=== PATIENT | female | born 1940 | race Caucasian/White ===

== ENCOUNTER → 2017-02-15 | Outpatient (CLI) | payer OTHER, MEDICARE ==
[~2017-02-15] MED LIST: ACET-1311 PO; ADVIN25/60 INH; CARV25TA2 PO; CLC100 PO; CPR500 PO; CRG25 PO; DOCU100C31 PO; ENOX30IN4 SQ; ENOX40IN SQ; ERGO1CAP35 PO; FERR325T51 PO; FLUT1INH INH; FURO-85 PO; HYDR-3419 PO; IPRA1AER2 INH; NRV5 PO; OXGN; OXYC-106 PO; OXYC1TAB3 PO; POLY335019 PO; SENN-91 PO; SIMV40TA2 PO; TIOT1SPR INH; WARF2.5T8 PO; WARF2TAB8 PO
[2017-02-15 10:05] LABS: HEMATOCRIT 41.3 % (37-47); MEAN CORPUSCULAR HEMOGLOBIN 30.2 pg (25-34); MEAN CORPUSCULAR HGB CONC 32.4 g/dl (32-36); MEAN PLATELET VOLUME 10.5 fL (7.4-10.4); PLATELET COUNT 190 K/uL (130-400); RED BLOOD COUNT 4.44 M/uL (4.2-5.4); WHITE BLOOD COUNT 5.26 K/uL (4.8-10.8)
[2017-02-15 10:10] LABS: URINE APPEARANCE CLEAR (CLEAR); URINE BILIRUBIN NEG (NEG); URINE COLOR YELLOW; URINE EPITHELIAL CELL AUTO >30 /lpf (0-5); URINE NITRITE NEG (NEG); URINE PH 5.5 (4.5-7.5); URINE SPECIFIC GRAVITY 1.016 (1.000-1.030); UROBILINOGEN NEG (NEG)
[2017-02-15 10:12] LABS: MANUAL MICROSCOPIC REQUIRED? NO; REVIEW REQ? NO
[2017-02-15 10:31] LABS: BLOOD UREA NITROGEN 45 mg/dl (7-18); BUN/CREATININE RATIO 28.2 (10-20); CALCIUM 8.9 mg/dl (8.5-10.1); CARBON DIOXIDE 30 mmol/L (21-32); CHLORIDE 107 mmol/L (98-107); GLUCOSE 102 mg/dl (70-99); PHOSPHORUS 3.7 mg/dl (2.5-4.9); SODIUM 143 mmol/L (136-145); TOTAL IRON BINDING CAPACITY 276 mcg/dl (250-450)
[2017-02-15 10:44] LABS: URINE PROTIEN/CREAT RATIO 0.1 (0-0.2); URINE TOTAL PROTEIN 18.2 mg/dl (0-11.9)
[2017-02-15 10:45] LABS: FERRITIN 319.8 ng/ml (8.0-388.0); THYROID STIMULATING HORMONE 0.778 uIu/ml (0.300-4.500)
== END | disposition home or self-care (01) ==
LOC: C.LAB1850 07:11
PROVIDERS: ATTEND Internal Medicine Nephrology
DX: I10 Essential (primary) hypertension (principal); N25.81 Secondary hyperparathyroidism of renal origin; N18.4 Chronic kidney disease, stage 4 (severe); D64.9 Anemia, unspecified; R94.6 Abnormal results of thyroid function studies; I26.99 Other pulmonary embolism without acute cor pulmonale

== ENCOUNTER → 2017-02-23 | Outpatient (CLI) | payer OTHER, MEDICARE ==
[2017-02-23 13:29] LABS: URINE APPEARANCE CLEAR (CLEAR); URINE BILIRUBIN NEG (NEG); URINE COLOR DK YELLOW; URINE EPITHELIAL CELL AUTO >30 /lpf (0-5); URINE NITRITE NEG (NEG); URINE PH 7.5 (4.5-7.5); URINE SPECIFIC GRAVITY 1.016 (1.000-1.030); UROBILINOGEN NEG (NEG); ZZUR CULT IF INDIC CLEAN CATCH NO
[2017-02-23 13:31] LABS: MANUAL MICROSCOPIC REQUIRED? NO; REVIEW REQ? YES
== END | disposition home or self-care (01) ==
LOC: C.LAB1850 11:27
PROVIDERS: ATTEND Internal Medicine Nephrology
DX: I12.9 Hypertensive chronic kidney disease with stage 1 through stage 4 chronic kidney disease, or unspecified chronic kidney disease (principal); E55.9 Vitamin D deficiency, unspecified; N18.4 Chronic kidney disease, stage 4 (severe); D64.9 Anemia, unspecified; R31.29 Other microscopic hematuria

== ENCOUNTER → 2017-03-07 | Outpatient (CLI) | payer OTHER, MEDICARE ==
--- NOTE | 2017-03-07 11:54 | DIAGNOSTIC IMAGING REPORT ---
RENAL ULTRASOUND HISTORY: CHRONIC KIDNEY Disease, hematuria COMPARISON: Abdomen and pelvis CT 06/06/2016. FINDINGS: Right kidney: 8.9 cm. No hydronephrosis. Moderate cortical thinning. Increased cortical echogenicity. Left kidney: 9.1 cm. No hydronephrosis. Moderate cortical thinning. Increased cortical echogenicity. Bladder: Under distended and not well evaluated. IMPRESSION: 1. No hydronephrosis. 2. Moderate bilateral cortical thinning with increased cortical echogenicity suggestive of medical renal disease. Electronically signed by: Lopez Lee M.D. 03/07/2017 11:52 AM Dictated Date/Time: 03/07/2017 11:50 AM
== END | disposition home or self-care (01) ==
LOC: C.ULTRBC 11:19
PROVIDERS: ATTEND Internal Medicine Nephrology
DX: E55.9 Vitamin D deficiency, unspecified (principal); D64.9 Anemia, unspecified; I10 Essential (primary) hypertension; N18.4 Chronic kidney disease, stage 4 (severe); R31.29 Other microscopic hematuria

== ENCOUNTER 2017-05-11 07:07 | Inpatient (IN) | payer OTHER, MEDICARE ==
--- NOTE | 2017-04-27 09:57 | PAT Medication Instructions ---
Service Date Apr 27, 2017. Current Home Medication List Carvedilol (Coreg), 25 MG PO BID Ergocalciferol (Vitamin D Cap), 50,000 INTER.UNIT PO MONTHLY Ferrous Sulfate (Iron Supplement), 325 MG PO QAM Fluticasone Prop/Salmeterol (Advair Diskus 250/50 60 Dose), 1 PUFF INH BID Furosemide (Lasix), 20 MG PO QAM Home O2 Therapy (Oxygen), 2 LITERS NA HS Sennosides-Docusate Sodium (Senna S), 1 TAB PO DAILY PRN for PRN Simvastatin (Zocor), 40 MG PO HS Tiotropium [place] (Spiriva Respimat), 1 PUFF INH QAM Warfarin Sod (Jantoven), 2 MG PO QPM Medication Instructions For Your Scheduled Surgery - Continue as directed: Ergocalciferol (Vitamin D Cap), 50,000 INTER.UNIT PO MONTHLY Home O2 Therapy (Oxygen), 2 LITERS NA HS - Check with surgeon/prescribing physician for instructions: Warfarin Sod (Jantoven), 2 MG PO QPM - Hold the following medications the morning of surgery: Sennosides-Docusate Sodium (Senna S), 1 TAB PO DAILY PRN for PRN Furosemide (Lasix), 20 MG PO QAM Ferrous Sulfate (Iron Supplement), 325 MG PO QAM - Take the following medications the morning of surgery with a sip of water: Tiotropium [place] (Spiriva Respimat), 1 PUFF INH QAM Fluticasone Prop/Salmeterol (Advair Diskus 250/50 60 Dose), 1 PUFF INH BID Carvedilol (Coreg), 25 MG PO BID - Take the following medications as scheduled the night before surgery: Simvastatin (Zocor), 40 MG PO HS Sennosides-Docusate Sodium (Senna S), 1 TAB PO DAILY PRN for PRN (if needed) Fluticasone Prop/Salmeterol (Advair Diskus 250/50 60 Dose), 1 PUFF INH BID Carvedilol (Coreg), 25 MG PO BID If you have any questions please call us at [phone] or [phone] or [phone]
[2017-04-27 11:00] LABS: BASO % 0.5 %; BASO ABS # 0.03 K/uL (0-0.2); COMPLETE YES; EOS % 2.8 %; IG% 0.2 %; LYMPH % 23.3 %; LYMPH ABS # 1.48 K/uL (1.2-3.4); MEAN CELL VOLUME 93.5 fL (80-100); MEAN CORPUSCULAR HEMOGLOBIN 30.7 pg (25-34); MEAN CORPUSCULAR HGB CONC 32.8 g/dl (32-36); MEAN PLATELET VOLUME 10.2 fL (7.4-10.4); MONO % 8.8 %; NEUT % 64.4 %; PLATELET COUNT 227 K/uL (130-400); WHITE BLOOD COUNT 6.34 K/uL (4.8-10.8)
[2017-04-27 11:04] LABS: URINE APPEARANCE CLEAR (CLEAR); URINE BILIRUBIN NEG (NEG); URINE COLOR YELLOW; URINE NITRITE NEG (NEG); URINE SPECIFIC GRAVITY 1.013 (1.000-1.030); UROBILINOGEN NEG (NEG)
[2017-04-27 11:12] LABS: BUN/CREATININE RATIO 24.9 (10-20); CALCIUM 9.4 mg/dl (8.5-10.1); CREATININE 1.6 mg/dl (0.60-1.20); POTASSIUM 4.1 mmol/L (3.5-5.1)
[2017-04-27 11:14] LABS: MANUAL MICROSCOPIC REQUIRED? NO; REVIEW REQ? NO
[~2017-05-11] VITALS: Ht 162.6 cm; Wt 80.7 kg
[2017-05-11] VITALS (9 sets, daily range): BP systolic 115–179; BP diastolic 66–91; PULSE 59–73; TEMP 36.2–37; O2SAT 95–100; Ht 162.6 cm; Wt 80.7 kg
[~2017-05-11 07:07] MED LIST changes: -ACET-1311 PO; +ATROPINE SULFATE 0.1 MG/ML 5ML SYR IV PRN; +CIPROFLOXACIN / D5W 400 MG IV SCH; -CLC100 PO; -CPR500 PO; -CRG25 PO; -DOCU100C31 PO; -ENOX30IN4 SQ; -ENOX40IN SQ; +EpHEDrine SULFATE INJ 50 MG/ML AMP IV PRN; +FENTANYL CITRATE INJ 50 MCG/1 ML 2 ML VIAL IV PRN; -FLUT1INH INH; -HYDR-3419 PO; -IPRA1AER2 INH; -NRV5 PO; +ONDANSETRON INJ 2 MG/ML 2 ML VIAL IV PRN; -OXYC-106 PO; -OXYC1TAB3 PO; -POLY335019 PO; +SODIUM CHLORIDE 0.9% 1000ML 1,000 ML IV SCH; -WARF2.5T8 PO
[2017-05-11] MEDS ORDERED: MIDAZOLAM HCL 1 MG/ML 2ML VIAL ONE (08:26)
[2017-05-11] MEDS ORDERED: DEXAMETHASONE SOD INJ 4 MG/ML VIAL ONE (08:26)
[2017-05-11] MEDS ORDERED: LIDOCAINE HCL 2% 2 ML VIAL (20MG/ML) ONE (08:26)
[2017-05-11] MEDS ORDERED: PROPOFOL IV EMULSION 10 MG/ML 20 ML VIAL IV ONE (08:26)
[2017-05-11] MEDS ORDERED: FENTANYL CITRATE INJ 50 MCG/1 ML 2 ML VIAL ONE ×2 (08:26→12:04)
[2017-05-11] MEDS ORDERED: ONDANSETRON INJ 2 MG/ML 2 ML VIAL ONE (08:26)
[2017-05-11 08:35] LABS: INR 1.1 (0.9-1.1); PROTHROMBIN TIME (PATIENT) 11.8 SECONDS (9.0-12.0)
[2017-05-11] MEDS: CONRAY 30% 150ML BOTTLE ONE (09:43)
--- NOTE | 2017-05-11 09:48 | History & Physical Bridge Note ---
H&P Re-Evaluation Bridge Note: I have examined the patient, reviewed the History & Physical and in the interval since the performance of the History & Physical I have noted the following changes of clinical significance: No changes noted
[2017-05-11] MEDS ORDERED: EpHEDrine SULFATE 50MG/5ML SYR ONE (10:27)
[2017-05-11] MEDS ORDERED: METHYLENE BLUE 0.5% 10 ML VIAL ONE (10:27)
[2017-05-11] MEDS: FENTANYL CITRATE INJ 50 MCG/1 ML 2 ML VIAL IV PRN ×2 (12:06→12:13)
[2017-05-11] MEDS ORDERED: ONDANSETRON INJ 2 MG/ML 2 ML VIAL IV PRN (12:15)
[2017-05-11] MEDS ORDERED: ATROPINE SULFATE 0.1 MG/ML 5ML SYR IV PRN (12:15)
[2017-05-11] MEDS ORDERED: EpHEDrine SULFATE INJ 50 MG/ML AMP IV PRN (12:15)
--- NOTE | 2017-05-11 12:17 | [facility] Post Operative Brief Note ---
Immediate Operative Summary Operative Date May 11, 2017. Pre-Operative Diagnosis Malignant Neoplasm of Bladder Post-Operative Diagnosis Malignant Neoplasm of Bladder Procedure(s) Performed Cystoscopy, Large Transurethral Resection Bladder Tumor, Fulgeration of Large Surface Area, Bilateral Retrograde Pyelography, Right Ureteral Stent Placement Surgeon Dr. Riojas Rfid Engineer Surgeon(s) Dr. Dyer Estimated Blood Loss 50 cc Findings multiple 4 to 5 cm bladder tumors on r lateral wall . Diffuse cancer throughout bladder cancer around r u/o nl retrogrades bilaterally Specimens A: Bladder tumor posterior wall B: Bladder tumor bladder neck C: Posterior wall of bladder tumor D: Left lateral wall bladder Disposition Recovery Room / PACU
--- NOTE | 2017-05-11 12:22 | [facility] Operative Report ---
Operative Report Operative Date May 11, 2017. Pre-Operative Diagnosis Malignant Neoplasm of Bladder Post-Operative Diagnosis Malignant Neoplasm of Bladder Procedure(s) Performed Cystoscopy, Large Transurethral Resection Bladder Tumor, Fulgeration of Large Surface Area, Bilateral Retrograde Pyelography, Right Ureteral Stent Placement Surgeon Dr. Riojas Deburr Operator Surgeon(s) Dr. Dyer Estimated Blood Loss 50 cc Findings Diffuse cancer seen throughout the bladder Multiple 3-4 cm tumors on the right lateral wall extending all the way to the bladder neck Tumor surrounding the right ureteral orifice and right half of the trigone Normal retrogrades bilaterally Diffuse erythema throughout the bladder with bleeding from just touching the bladder wall or friable bladder Specimens A: Bladder tumor posterior wall B: Bladder tumor bladder neck C: Posterior wall of bladder tumor D: Left lateral wall bladder Drains 22 stoner Disposition Recovery Room / PACU Description of Procedure The patient was taken to the operating room where general anesthesia was administered she had Venodyne stockings placed previously and was given antibiotics previously. Her ProTime preoperatively was 11.8. She was first the dorsal position after being given general anesthesia and prepped and draped in usual sterile fashion 22 [place] scope was passed and the bladder was carefully examined with 30 and 70 lenses. I first did a retrograde and left side and this appeared normal the right ureteral orifice was covered with tumor so I ordered methylene blue and decided to come back to do the retrograde at a later time. Attention was focused first to the larger tumors in the right lateral wall and they were resected with the resectoscope with some deep biopsies being taken with one of the tumors. After the stone biopsied these at least 4 tumors were resected there were 3-4 cm. There is also diffuse cancer throughout the right lateral wall extending toward the posterior wall. Cancer seen in the posterior wall and this was biopsied as well as cancer on the left lateral wall. These were done with cup biopsy forceps the bladder was quite friable and bled very easily. Large surface area was fulgurated including approximately at least 20% of the bladder surface area.. Attention was then focused on the right ureteral orifice. With the assistance of Dr. Dyer I was able to locate the right ureteral orifice and it was cannulated with a 5 [place] open-ended catheter. A retrograde was performed which also appeared normal. A 6 [place] variable length stent was placed. Fulguration around the orifice was performed with the Bugbee as it was large amount of surface appearing papillary tumor surrounding the orifice. The bladder was reexamined and there was still some areas that needed to be coagulated. It and the procedure 20 [place] Stoner cath was placed the patient was transferred to the recovery room in stable condition. I attest to the content of the Intraoperative Record and any orders documented therein. Any exceptions are noted below.
[2017-05-11] MEDS ORDERED: MoRPHine SULFATE 4 MG/ML 1 ML CARP IV PRN (12:30)
[2017-05-11] MEDS ORDERED: DOCUSATE SODIUM/SENNA 50/8.6MG TAB PO PRN (12:30)
--- NOTE | 2017-05-11 12:39 | DIAGNOSTIC IMAGING REPORT ---
RETROGRADE INCLUDES KUB CLINICAL HISTORY: Right-sided stent placement COMPARISON STUDY: Renal ultrasound dated 03/07/2017 FINDINGS: 48 seconds of fluoroscopic time was utilized. A fluoroscopic spot images are provided for interpretation. The left ureter was catheterized in a retrograde fashion and contrast was instilled. No ureteral filling defects were visualized. There is no hydronephrosis. The right ureter was catheterized in a retrograde fashion and contrast was instilled. There is narrowing of the right ureteropelvic junction. There is mild dilatation the right renal pelvis. A right-sided nephroureteral stent was visualized. The distal aspect of the stent was not imaged. IMPRESSION: Narrowing of the right ureteropelvic junction. A right-sided nephroureteral stent was placed. Electronically signed by: Juan Newell M.D. 05/11/2017 12:38 PM Dictated Date/Time: 05/11/2017 12:36 PM
[2017-05-11] MEDS ORDERED: IV FLUIDS COMPLETED PRN (12:45)
--- NOTE | 2017-05-11 13:00 | Anesthesiology Progress Note ---
Anesthesia Post Op Note Date & Time May 11, 2017 at 13:00 Vital Signs Pain Intensity: 3 Vital Signs Past 12 Hours Date Time Temp Pulse Resp B/P (MAP) Pulse Ox O2 Delivery O2 Flow Rate FiO2 05/11/17 12:40 67 16 167/74 93 Room Air 05/11/17 12:30 65 16 148/75 94 Room Air 05/11/17 12:20 75 14 175/82 100 Oxymask 8 05/11/17 12:10 75 14 183/91 99 Oxymask 8 05/11/17 11:59 36.2 75 14 183/91 97 Oxymask 8 05/11/17 08:09 37.0 73 18 115/66 (82) 95 Room Air Notes Mental Status: alert / awake / arousable, participated in evaluation Pt Amnestic to Procedure: Yes Nausea / Vomiting: adequately controlled Pain: adequately controlled Airway Patency, RR, SpO2: stable & adequate BP & HR: stable & adequate Hydration State: stable & adequate Anesthetic Complications: no major complications apparent
[2017-05-11 15:03] LABS: BASO % 0.2 %; BASO ABS # 0.01 K/uL (0-0.2); COMPLETE YES; EOS % 3.6 %; HEMATOCRIT 37.8 % (37-47); IG% 0.2 %; LYMPH ABS # 1.09 K/uL (1.2-3.4); MEAN CORPUSCULAR HEMOGLOBIN 30.2 pg (25-34); MEAN CORPUSCULAR HGB CONC 33.6 g/dl (32-36); MEAN PLATELET VOLUME 9.8 fL (7.4-10.4); MONO % 7.4 %; NEUT % 62.6 %; PLATELET COUNT 164 K/uL (130-400)
--- NOTE | 2017-05-11 15:25 | Medical Consult ---
Consultation Date of Consultation: May 11, 2017. Attending Physician: Lenny Riojas M.D. Reason for Consultation: Medical management History of Present Illness Patient is a 76 y/o female, with PMHx of anemia, CKD stage IV, HTN, h/o takotsubo cardiomyopathy, CAD, dyslipidemia, COPD, nocturnal hypoxemia, h/o PE, vitamin D deficiency, and chronic low back pain, s/p cystoscopy, transurethral resection of large bladder tumor, fulgeration of large surface area, bilateral retrograde pyelography, right ureteral stent placement by Dr. Riojas on 05/11. Procedure went well, with no complications. Feeling well postop. Ate a little of lunch w/out N/V. Admits to lower abdominal pressure- RN to administer pain medications. Postop vitals/labs stable. Patient denies any fever, chills, sweats , lightheadedness, dizziness, vision changes, CP, palpitations, edema, SOB, wheezing, cough, nausea, vomiting, diarrhea, urinary symptoms, melena, numbness/ tingling, weakness, muscle/joint pain, anxiety/depression, active bleeding, or new skin discoloration/changes. Past Medical/Surgical History Medical Problems: Anemia CKD, stage IV HTN h/o takotsubo cardiomyopathy CAD w/ 80% distal RCA stenosis COPD Nocturnal hypoxemia Dyslipidemia Chronic low back pain h/o PE Vitamin D deficiency Surgical hx: hip replacement s/p AAA repair Family History Hypertension Social History Smoking Status: Former Smoker Drug Use: none Housing Status: lives alone Occupation Status: employed Allergies Coded Allergies: No Known Allergies (Verified , 05/11/17) Home Medications Reported Home Medications Medications Dose Route/Sig Max Daily Dose Days Date Category Dose Instructions Spiriva Respimat (Tiotropium [place]) 2.5 Mcg/Act Spr 1 Puff INH QAM 04/27/17 Reported Oxygen Gas 2 Liters NA HS 04/27/17 Reported AND PRN DURING THE DAY Jantoven (Warfarin Sodium) 2 Mg Tab 2 Mg PO QPM 04/27/17 Reported Advair Diskus 250/50 60 Dose (Fluticasone Prop/Salmeterol) 1 Ea Aerp 1 Puff INH BID 04/27/17 Reported Coreg (Carvedilol) 25 Mg Tab 25 Mg PO BID 04/27/17 Reported Senna S (Sennosides-Docusate Sodium) 1 Tab Tab 1 Tab PO DAILY PRN 12/21/15 Reported Iron Supplement (Ferrous Sulfate) 325 Mg Tab 325 Mg PO QAM 30 11/27/15 Reported Lasix (Furosemide) 20 Mg Tab 20 Mg PO QAM 01/23/14 Reported Vitamin D Cap (Ergocalciferol) 50,000 Interunit Cap 50,000 Inter.unit PO MONTHLY 07/31/13 Reported FIRST OF MONTH Zocor (Simvastatin) 40 Mg Tab 40 Mg PO HS 09/17/10 Reported Current Inpatient Medications Current Inpatient Medications Medications (Trade) Dose Ordered Sig/Cale Route Start Time Stop Time Status Last Admin Dose Admin Sodium Chloride 1,000 ml @ 15 mls/hr Q24H IV 05/11/17 06:00 05/12/17 05:59 Ciprofloxacin/ Dextrose 200 ml @ 100 mls/hr PREOP IV 05/11/17 06:00 05/11/17 18:00 05/11/17 09:55 100 MLS/HR Dextrose/Sodium Chloride 1,000 ml @ 75 mls/hr [id number] IV 05/11/17 12:22 06/10/17 12:21 Morphine Sulfate (MoRPHine SULFATE INJ) 3 mg Q1H PRN IV 05/11/17 12:30 05/25/17 12:29 Oxycodone/ Acetaminophen (Percocet 5-325mg Tab) 1 tab Q4H PRN PO 05/11/17 12:30 05/25/17 12:29 Carvedilol (Coreg Tab) 25 mg BID PO 05/11/17 21:00 06/10/17 20:59 Salmeterol Xinafoate/ Fluticasone (Advair Diskus 250/50 Inh) 1 puff BID INH 05/11/17 21:00 06/10/17 20:59 Furosemide (Lasix Tab) 20 mg QAM PO 05/12/17 09:00 06/11/17 08:59 Senna/Docusate Sodium (Senokot S Tab) 1 tab DAILY PRN PO 05/11/17 12:30 06/10/17 12:29 Simvastatin (Zocor Tab) 40 mg HS PO 05/11/17 21:00 06/10/17 20:59 Ferrous Sulfate (Feosol Tab) 325 mg QAM PO 05/12/17 09:00 06/11/17 08:59 Tiotropium [place] (Spiriva [place] Inhaler) 1 puff QAM INH 05/12/17 09:00 06/11/17 08:59 Ciprofloxacin/ Dextrose 400 mg/ Prmx 200 ml @ 100 mls/hr Q12 IV 05/11/17 21:00 05/21/17 20:59 Miscellaneous (Iv Fluids Completed) 1 ea PRN PRN N/A 05/11/17 12:45 05/11/18 12:44 Physical Exam Date Time Temp Pulse Resp B/P (MAP) Pulse Ox O2 Delivery O2 Flow Rate FiO2 05/11/17 14:29 64 16 171/82 (111) 100 Nasal Cannula 2.0 05/11/17 14:00 62 16 159/91 (113) 99 Nasal Cannula 2.0 05/11/17 13:38 36.4 62 15 179/84 (115) 99 Nasal Cannula 2.0 05/11/17 13:30 99 Nasal Cannula 2.0 05/11/17 13:00 64 16 179/82 98 Room Air 05/11/17 12:50 36.1 67 16 163/81 98 Room Air 05/11/17 12:40 67 16 167/74 93 Room Air 05/11/17 12:30 65 16 148/75 94 Room Air 05/11/17 12:20 75 14 175/82 100 Oxymask 8 05/11/17 12:10 75 14 183/91 99 Oxymask 8 05/11/17 11:59 36.2 75 14 183/91 97 Oxymask 8 05/11/17 08:09 37.0 73 18 115/66 (82) 95 Room Air General Appearance: no apparent distress, + pertinent finding (2L O2 NC ) Head: normocephalic, atraumatic Eyes: normal inspection, PERRL ENT: hearing grossly normal Neck: supple Respiratory/Chest: no respiratory distress, no accessory muscle use, + decreased breath sounds, + crackles (bilateral lung bases ) Cardiovascular: regular rate, rhythm Abdomen/GI: normal bowel sounds, non tender, soft Genitourinary - Female: + pertinent finding ([place]- draining quinn colored urine ) Back: normal inspection Extremities/Musculoskelatal: no calf tenderness, no pedal edema Neurologic/Psych: alert, normal mood/affect, oriented x 3 Skin: normal color, warm/dry, no rash Laboratory Results Last 24 Hours Test 05/11/17 08:07 05/11/17 14:29 Prothrombin Time 11.8 SECONDS Prothromb Time International Ratio 1.1 Activated Partial Thromboplast Time 26.8 SECONDS Partial Thromboplastin Ratio 1.0 White Blood Count 4.20 K/uL Red Blood Count 4.20 M/uL Hemoglobin 12.7 g/dL Hematocrit 37.8 % Mean Corpuscular Volume 90.0 fL Mean Corpuscular Hemoglobin 30.2 pg Mean Corpuscular Hemoglobin Concent 33.6 g/dl Platelet Count 164 K/uL Mean Platelet Volume 9.8 fL Neutrophils (%) (Auto) 62.6 % Lymphocytes (%) (Auto) 26.0 % Monocytes (%) (Auto) 7.4 % Eosinophils (%) (Auto) 3.6 % Basophils (%) (Auto) 0.2 % Neutrophils # (Auto) 2.63 K/uL Lymphocytes # (Auto) 1.09 K/uL Monocytes # (Auto) 0.31 K/uL Eosinophils # (Auto) 0.15 K/uL Basophils # (Auto) 0.01 K/uL RDW Standard Deviation 45.1 fL RDW Coefficient of Variation 13.6 % Immature Granulocyte % (Auto) 0.2 % Immature Granulocyte # (Auto) 0.01 K/uL Assessment & Plan Patient is a 76 y/o female, with PMHx of anemia, CKD stage IV, HTN, h/o takotsubo cardiomyopathy, CAD, dyslipidemia, COPD, nocturnal hypoxemia, h/o PE, vitamin D deficiency, and chronic low back pain, s/p cystoscopy, large transurethral resection bladder tumor, fulgeration of large surface area, bilateral retrograde pyelography, right ureteral stent placement by Dr. Riojas on 05/11. s/p cystoscopy, large transurethral resection bladder tumor, fulgeration of large surface area, bilateral retrograde pyelography, right ureteral stent placement by Dr. Riojas on 05/11: - Management as per primary team: -- Pain management- Percocet 5/325 mg q4 hrs PRN, and Morphine 3 mg q1 hrs PRN -- DVT Prophylaxis and resuming Warfarin once OK by primary team -- Diet- advancing as tolerated CKD, stage IV, baseline Cr 1.40/anemia- follows w/ Dr. Escoto: - Continue Ferrous Sulfate 325 mg QAM - Follow PRP and CBC- postop labs reviewed h/o takotsubo cardiomyopathy/CAD/HTN/dyslipidemia- follows w/ JENNIE LópezC: Continue Coreg 25 mg BID, Lasix 20 mg QAM, Simvastatin 40 mg HS Resident Physician Supervision Note: Pt seen/examined independently. I discussed the case with the PA and agree with the findings and plan as documented in the note. Any exceptions or clarifications are listed here: 76 y/o F post TURB - Hx Takotsubo syndrome, CKD IV, HTN, HPL, COPD Pt tolerated procedure and is recovering well - tolerating PO, pain controlled OE AAO x 3 S1,2 R CTAB Lower abdomen tender No CCE P: Can resume home meds inc Coreg and Zocor for HTN, HPL - incentive sadie and neb treatments IVF to avoid worsening renal failure Hold Lasix pending AM labs and volume assessment Med service to follow pending DC Documented By: Yakov Vazquez COPD/nocturnal hypoxemia: Continue Spiriva, Advair, and O2 2L NC HS and PRN Vitamin D deficiency: Vitamin D 50,000 IU monthly h/o PE: - Warfarin 2 mg daily held- follow PT/INR - Per patient/daughter, starting Lovenox injections on 05/16 and bridging w/ Coumadin DVT Prophylaxis: As per primary team Code Status: LEVEL I, FULL Dispo: Discharge as per primary team Thank you for this consultation. We will continue to follow throughout hospital stay.
[2017-05-11 15:29] LABS: BUN/CREATININE RATIO 26.7 (10-20); CALCIUM 8.8 mg/dl (8.5-10.1); CREATININE 1.6 mg/dl (0.60-1.20)
[2017-05-11] MEDS: D5W AND 1/2NSS 1,000 ML IV SCH (15:35)
[2017-05-11] MEDS ORDERED: NURSING VERBAL MED ORDER ONE (17:00)
[2017-05-11] MEDS: OXYBUTYNIN CHLORIDE 5 MG TAB PO SCH (18:52)
[2017-05-11] MEDS: FLUTICASONE/SALMETEROL 250/50 (ADVAIR) 14 PUFF/1 INHALER INH SCH (20:36)
[2017-05-11] MEDS: SIMVASTATIN 40 MG TAB PO SCH (20:37)
[2017-05-11] MEDS: CIPROFLOXACIN / D5W 400 MG in PREMIXED IN D5W 200 ML IV SCH (20:37)
[2017-05-11] MEDS: CARVEDILOL 25 MG TAB PO SCH (20:38)
[2017-05-11] MEDS: OXYCODONE/ACETAMINOPHEN 5-325 TAB PO PRN (20:44)
[2017-05-12 03:54] VITALS: BP 133/75; PULSE 68; TEMP 36.4; O2SAT 99
[2017-05-12] MEDS: D5W AND 1/2NSS 1,000 ML IV SCH ×2 (06:29→15:55)
[2017-05-12 07:48] LABS: MEAN CELL VOLUME 92.1 fL (80-100); MEAN CORPUSCULAR HEMOGLOBIN 30.2 pg (25-34); MEAN CORPUSCULAR HGB CONC 32.8 g/dl (32-36); MEAN PLATELET VOLUME 9.5 fL (7.4-10.4); PLATELET COUNT 142 K/uL (130-400); RED BLOOD COUNT 3.91 M/uL (4.2-5.4); WHITE BLOOD COUNT 4.77 K/uL (4.8-10.8)
[2017-05-12 07:54] LABS: INR 1.1 (0.9-1.1); PROTHROMBIN TIME (PATIENT) 11.6 SECONDS (9.0-12.0)
--- NOTE | 2017-05-12 07:54 | Anesthesiology Progress Note ---
Anesthesia Post Op Note Date & Time May 12, 2017 at 07:53 Vital Signs Vital Signs Past 12 Hours Date Time Temp Pulse Resp B/P (MAP) Pulse Ox O2 Delivery O2 Flow Rate FiO2 05/12/17 03:54 36.4 68 16 133/75 (94) 99 Nasal Cannula 2.0 05/12/17 00:58 Room Air 05/11/17 23:11 36.6 68 16 132/82 (99) 98 Nasal Cannula 2.0 05/11/17 20:00 Room Air Notes Mental Status: alert / awake / arousable, participated in evaluation Pt Amnestic to Procedure: Yes Nausea / Vomiting: adequately controlled Pain: adequately controlled Airway Patency, RR, SpO2: stable & adequate BP & HR: stable & adequate Hydration State: stable & adequate Anesthetic Complications: no major complications apparent
[2017-05-12 07:59] VITALS: BP 124/66; PULSE 70; TEMP 37; O2SAT 97
[2017-05-12 08:13] LABS: BUN/CREATININE RATIO 18.9 (10-20); CALCIUM 8.7 mg/dl (8.5-10.1); CREATININE 1.9 mg/dl (0.60-1.20); POTASSIUM 4.3 mmol/L (3.5-5.1)
[2017-05-12] MEDS ORDERED: HYDR-3419 PO (08:25)
--- NOTE | 2017-05-12 08:28 | Discharge Instructions ---
Discharge Instructions Date of Service May 12, 2017. Admission Reason for Admission: Bladder Tumor Discharge Discharge Diagnosis / Problem: Bladder tumor s/p biopsy, fulguration, R stent Discharge Goals Goal(s): Decrease discomfort, Improve disease control, Diagnostic testing, Therapeutic intervention Activity Recommendations Activity Limitations: per Instructions/Follow-up section (light activity but ambulate every hour or 2 to prevent blood clots) Lifting Limitations: no more than 25 pounds, gradually increase as tolerated ( x 5 days) Exercise/Sports Limitations: rest today, gradually increase as tolerated (x 5 days) May Resume Sexual Activity: when tolerated Shower/Bathe: no limitations Driving or Machine Use: resume 1 day after discharge . Current Hospital Diet Patient's current hospital diet: Regular Diet Discharge Diet Recommended Diet: Regular Diet (drink lots of fluids) Procedures Procedures Performed: Cystoscopy, Large Transurethral Resection Bladder Tumor, Fulgeration of Large Surface Area, Bilateral Retrograde Pyelography, Right Ureteral Stent Placement Pending Studies Studies pending at discharge: yes List of pending studies: Pathology report Medical Emergencies . Who to Call and When: Medical Emergencies: If at any time you feel your situation is an emergency, please call 911 immediately. . Non-Emergent Contact Non-Emergency issues call your: Urologist Call Non-Emergent contact if: temperature is above 101, your pain is not controlled, you have any medication questions . . "Provider Documentation" section prepared by Lenny Riojas. . VTE Core Measure Inpt VTE Proph given/why not?: SCD's
[2017-05-12] MEDS ORDERED: MAGNESIUM HYDROXIDE SUSP 30 ML UDC PO ONE (08:30)
--- NOTE | 2017-05-12 08:32 | Progress Note ---
Subjective Date of Service: May 12, 2017. Subjective Pt evaluation today including: conversation w/ patient, conversation w/ family , physical exam, chart review, lab review pt with need for narcotic to control pain Problem List Medical Problems: (1) Back pain Status: Acute (2) Dyspnea Status: Acute (3) Dyspnea on exertion Status: Acute (4) Lumbar compression fracture Status: Acute (5) Non-ST elevated myocardial infarction Status: Acute Objective Vital Signs Date Time Temp Pulse Resp B/P (MAP) Pulse Ox O2 Delivery O2 Flow Rate FiO2 05/12/17 08:00 Room Air 05/12/17 07:59 37.0 70 14 124/66 (85) 97 Room Air 05/12/17 03:54 36.4 68 16 133/75 (94) 99 Nasal Cannula 2.0 05/12/17 00:58 Room Air 05/11/17 23:11 36.6 68 16 132/82 (99) 98 Nasal Cannula 2.0 05/11/17 20:00 Room Air 05/11/17 19:12 36.4 66 18 141/66 (91) 99 Nasal Cannula 2.0 05/11/17 16:31 36.2 67 18 144/76 (98) 99 Nasal Cannula 2.0 05/11/17 15:27 36.2 59 18 160/83 (108) 100 Nasal Cannula 2.0 05/11/17 14:29 64 16 171/82 (111) 100 Nasal Cannula 2.0 05/11/17 14:00 62 16 159/91 (113) 99 Nasal Cannula 2.0 05/11/17 13:38 36.4 62 15 179/84 (115) 99 Nasal Cannula 2.0 05/11/17 13:30 99 Nasal Cannula 2.0 05/11/17 13:30 Room Air 05/11/17 13:00 64 16 179/82 98 Room Air 05/11/17 12:50 36.1 67 16 163/81 98 Room Air 05/11/17 12:40 67 16 167/74 93 Room Air 05/11/17 12:30 65 16 148/75 94 Room Air 05/11/17 12:20 75 14 175/82 100 Oxymask 8 05/11/17 12:10 75 14 183/91 99 Oxymask 8 05/11/17 11:59 36.2 75 14 183/91 97 Oxymask 8 Laboratory Results Last 24 Hours Test 05/11/17 14:29 05/12/17 07:32 White Blood Count 4.20 K/uL 4.77 K/uL Red Blood Count 4.20 M/uL 3.91 M/uL Hemoglobin 12.7 g/dL 11.8 g/dL Hematocrit 37.8 % 36.0 % Mean Corpuscular Volume 90.0 fL 92.1 fL Mean Corpuscular Hemoglobin 30.2 pg 30.2 pg Mean Corpuscular Hemoglobin Concent 33.6 g/dl 32.8 g/dl Platelet Count 164 K/uL 142 K/uL Mean Platelet Volume 9.8 fL 9.5 fL Neutrophils (%) (Auto) 62.6 % Lymphocytes (%) (Auto) 26.0 % Monocytes (%) (Auto) 7.4 % Eosinophils (%) (Auto) 3.6 % Basophils (%) (Auto) 0.2 % Neutrophils # (Auto) 2.63 K/uL Lymphocytes # (Auto) 1.09 K/uL Monocytes # (Auto) 0.31 K/uL Eosinophils # (Auto) 0.15 K/uL Basophils # (Auto) 0.01 K/uL RDW Standard Deviation 45.1 fL 47.5 fL RDW Coefficient of Variation 13.6 % 14.1 % Immature Granulocyte % (Auto) 0.2 % Immature Granulocyte # (Auto) 0.01 K/uL Sodium Level 140 mmol/L 139 mmol/L Potassium Level 4.0 mmol/L 4.3 mmol/L Chloride Level 103 mmol/L 103 mmol/L Carbon Dioxide Level 30 mmol/L 30 mmol/L Anion Gap 7.0 mmol/L 6.0 mmol/L Blood Urea Nitrogen 43 mg/dl 36 mg/dl Creatinine 1.60 mg/dl 1.90 mg/dl Est Creatinine Clear Calc Drug Dose 29.8 ml/min 25.1 ml/min Estimated GFR () 35.4 28.8 Estimated GFR (Non- 30.5 24.8 BUN/Creatinine Ratio 26.7 18.9 Random Glucose 82 mg/dl 95 mg/dl Calcium Level 8.8 mg/dl 8.7 mg/dl Prothrombin Time 11.6 SECONDS Prothromb Time International Ratio 1.1 Assessment and Plan pt with burgundy urine do not feel safe to d/c stoner and will leave here another day and start colace as she is taking significant narcotic cbc in am irrigate stoner prn Continued [facility] stay due to: inadequate oral pain control, other (significant hematuria)
[2017-05-12] MEDS: TIOTROPIUM BROMIDE 5 PUFF/90 MCG INH INH SCH (09:14)
[2017-05-12] MEDS: FLUTICASONE/SALMETEROL 250/50 (ADVAIR) 14 PUFF/1 INHALER INH SCH ×2 (09:14→21:11)
[2017-05-12] MEDS: OXYBUTYNIN CHLORIDE 5 MG TAB PO SCH ×2 (09:15→21:12)
[2017-05-12] MEDS ORDERED: NURSING VERBAL MED ORDER ONE (09:15)
[2017-05-12] MEDS: FUROSEMIDE 20 MG TAB PO SCH (09:15)
[2017-05-12] MEDS: FERROUS SULFATE 325 MG TAB PO SCH (09:15)
[2017-05-12] MEDS: OXYCODONE/ACETAMINOPHEN 5-325 TAB PO PRN ×2 (09:16→15:57)
[2017-05-12 09:56] VITALS: O2SAT 97
[2017-05-12] MEDS ORDERED: MAGNESIUM HYDROXIDE SUSP 30 ML UDC PO PRN (11:00)
[2017-05-12] MEDS: CIPROFLOXACIN / D5W 400 MG in PREMIXED IN D5W 200 ML IV SCH (11:04)
[2017-05-12] MEDS: DOCUSATE SODIUM 100 MG CAP PO SCH ×2 (11:05→21:12)
[2017-05-12] MEDS: CARVEDILOL 25 MG TAB PO SCH ×2 (11:06→21:14)
[2017-05-12 11:54] VITALS: BP 122/62; PULSE 68; TEMP 37.1; O2SAT 89
[2017-05-12 14:55] VITALS: BP 120/74; PULSE 77; TEMP 36.8; O2SAT 90
[2017-05-12] MEDS ORDERED: CIPROFLOXACIN CONSULT ACTIVE PRN ×2 (15:00)
--- NOTE | 2017-05-12 16:56 | Progress Note ---
Subjective Date of Service: May 12, 2017. Subjective pt doing well eating lunch still fairly dark urine, no pain issues at present Problem List Medical Problems: (1) Back pain Status: Acute (2) Dyspnea Status: Acute (3) Dyspnea on exertion Status: Acute (4) Lumbar compression fracture Status: Acute (5) Non-ST elevated myocardial infarction Status: Acute Review of Systems Constitutional: No fever, No chills Respiratory: No cough, No sputum, No shortness of breath Cardiac: No chest pain, No orthopnea, No edema Abdomen: No pain Female : + hematuria, No dysuria, No urinary frequency Objective Vital Signs Date Time Temp Pulse Resp B/P (MAP) Pulse Ox O2 Delivery O2 Flow Rate FiO2 05/12/17 14:55 36.8 77 18 120/74 (89) 90 Room Air 05/12/17 11:54 37.1 68 16 122/62 (82) 89 Room Air 05/12/17 09:56 97 05/12/17 08:00 Room Air 05/12/17 07:59 37.0 70 14 124/66 (85) 97 Room Air 05/12/17 03:54 36.4 68 16 133/75 (94) 99 Nasal Cannula 2.0 05/12/17 00:58 Room Air 05/11/17 23:11 36.6 68 16 132/82 (99) 98 Nasal Cannula 2.0 05/11/17 20:00 Room Air 05/11/17 19:12 36.4 66 18 141/66 (91) 99 Nasal Cannula 2.0 Physical Exam General Appearance: WD/WN, no apparent distress Neck: supple, thyroid normal Respiratory/Chest: chest non-tender, lungs clear, normal breath sounds Cardiovascular: regular rate, rhythm, + JVD Abdomen: normal bowel sounds, non tender, soft Laboratory Results Last 24 Hours Test 05/12/17 07:32 White Blood Count 4.77 K/uL Red Blood Count 3.91 M/uL Hemoglobin 11.8 g/dL Hematocrit 36.0 % Mean Corpuscular Volume 92.1 fL Mean Corpuscular Hemoglobin 30.2 pg Mean Corpuscular Hemoglobin Concent 32.8 g/dl RDW Standard Deviation 47.5 fL RDW Coefficient of Variation 14.1 % Platelet Count 142 K/uL Mean Platelet Volume 9.5 fL Prothrombin Time 11.6 SECONDS Prothromb Time International Ratio 1.1 Sodium Level 139 mmol/L Potassium Level 4.3 mmol/L Chloride Level 103 mmol/L Carbon Dioxide Level 30 mmol/L Anion Gap 6.0 mmol/L Blood Urea Nitrogen 36 mg/dl Creatinine 1.90 mg/dl Est Creatinine Clear Calc Drug Dose 25.1 ml/min Estimated GFR () 28.8 Estimated GFR (Non- 24.8 BUN/Creatinine Ratio 18.9 Random Glucose 95 mg/dl Calcium Level 8.7 mg/dl Assessment and Plan 76 y/o female s/p transurethral resection bladder tumor, fulgeration of large surface area, bilateral retrograde pyelography, right ureteral stent placement by Dr. Riojas on 05/11. doing well post , ckd 4 is stable h/o takotsubo cardiomyopathy/CAD/HTN/dyslipidemia- f: Continue Coreg 25 mg BID, Simvastatin 40 mg HS, lasix daily dvt prevention is mechanical given hematuria Continued [facility] stay due to: inadequate oral pain control, other (significant hematuria)
[2017-05-12] MEDS: SIMVASTATIN 40 MG TAB PO SCH (21:57)
[2017-05-12 23:37] VITALS: BP 160/83; PULSE 59; TEMP 36.6; O2SAT 90
[2017-05-13 03:16] VITALS: BP 152/79; PULSE 81
[2017-05-13] MEDS: D5W AND 1/2NSS 1,000 ML IV SCH ×2 (03:59→17:54)
[2017-05-13 07:04] VITALS: BP 125/75; PULSE 68; TEMP 36.8; O2SAT 96
[2017-05-13 07:11] LABS: HEMATOCRIT 35.5 % (37-47); MEAN CORPUSCULAR HEMOGLOBIN 28.5 pg (25-34); MEAN PLATELET VOLUME 10.3 fL (7.4-10.4); PLATELET COUNT 150 K/uL (130-400); RED BLOOD COUNT 3.86 M/uL (4.2-5.4); WHITE BLOOD COUNT 5.07 K/uL (4.8-10.8)
[2017-05-13 07:30] LABS: PROTHROMBIN TIME (PATIENT) 10.9 SECONDS (9.0-12.0)
[2017-05-13 07:44] LABS: BUN/CREATININE RATIO 18.2 (10-20); CALCIUM 8.5 mg/dl (8.5-10.1); POTASSIUM 4.4 mmol/L (3.5-5.1)
[2017-05-13] MEDS ORDERED: HydrALAZINE HCL 20 MG/ML VIAL IV PRN (08:00)
[2017-05-13] MEDS: CIPROFLOXACIN 500 MG TAB PO SCH (08:55)
[2017-05-13] MEDS: OXYBUTYNIN CHLORIDE 5 MG TAB PO SCH ×2 (08:56→21:03)
[2017-05-13] MEDS: FUROSEMIDE 20 MG TAB PO SCH (08:56)
[2017-05-13] MEDS: FLUTICASONE/SALMETEROL 250/50 (ADVAIR) 14 PUFF/1 INHALER INH SCH ×2 (09:03→21:03)
[2017-05-13] MEDS: TIOTROPIUM BROMIDE 5 PUFF/90 MCG INH INH SCH (09:04)
[2017-05-13] MEDS: FERROUS SULFATE 325 MG TAB PO SCH (09:52)
[2017-05-13] MEDS: CARVEDILOL 25 MG TAB PO SCH ×2 (09:52→21:04)
[2017-05-13] MEDS: DOCUSATE SODIUM 100 MG CAP PO SCH ×2 (09:53→21:03)
--- NOTE | 2017-05-13 10:04 | Progress Note ---
Subjective Date of Service: May 13, 2017. Subjective Pt evaluation today including: conversation w/ patient, physical exam, chart review, lab review, review of inpatient medication list Pain: Denies PO Intake: Sunitha reg diet Voiding: stoner catheter in place (hematuria, lightening) 76 yo female POD#2 s/p bladder biopsy and fulguration. Her hematuria continues, slowly improving. She notes irrigation for clot and catheter malfunction overnight, nursing notes reviewed, currently improved. Sunitha reg diet, + OOB. She notes she is pushing fluids, IVF running at 75 cc/ hr. Cr noted to be rising, currently 2.0. Past labs and hospitalizations reviewed - baseline renal insufficiency with occasional rises in her Cr noted. No other complaints, in good spirits. Hospitalist input reviewed and appreciated. Problem List Medical Problems: (1) Back pain Status: Acute (2) Dyspnea Status: Acute (3) Dyspnea on exertion Status: Acute (4) Lumbar compression fracture Status: Acute (5) Non-ST elevated myocardial infarction Status: Acute Review of Systems Constitutional: No fever, No chills Eyes: No worsening of vision ENT: No hearing loss Respiratory: No wheezing, No shortness of breath Cardiac: No chest pain Abdomen: No nausea, No vomiting Female : + see HPI, + hematuria Neurologic: No memory loss, No paralysis Psychiatric: No depression symptoms Skin: No new/changing skin lesions, No color change Objective Vital Signs Date Time Temp Pulse Resp B/P (MAP) Pulse Ox O2 Delivery O2 Flow Rate FiO2 05/13/17 07:45 Nasal Cannula 2.0 05/13/17 07:04 36.8 68 18 125/75 (92) 96 Nasal Cannula 2.0 05/13/17 03:16 81 152/79 (103) 05/12/17 23:37 36.6 59 20 160/83 (108) 90 Nasal Cannula 2.0 05/12/17 23:30 Nasal Cannula 2.0 05/12/17 16:40 Room Air 05/12/17 14:55 36.8 77 18 120/74 (89) 90 Room Air 05/12/17 11:54 37.1 68 16 122/62 (82) 89 Room Air Physical Exam General Appearance: WD/WN, no apparent distress ENT: hearing grossly normal Neck: supple, no adenopathy Respiratory/Chest: no respiratory distress, no accessory muscle use Cardiovascular: no JVD Abdomen: non tender, soft Neurologic/Psychiatric: alert, oriented x 3 Skin: normal color Laboratory Results Last 24 Hours Test 05/13/17 06:23 White Blood Count 5.07 K/uL Red Blood Count 3.86 M/uL Hemoglobin 11.0 g/dL Hematocrit 35.5 % Mean Corpuscular Volume 92.0 fL Mean Corpuscular Hemoglobin 28.5 pg Mean Corpuscular Hemoglobin Concent 31.0 g/dl RDW Standard Deviation 47.5 fL RDW Coefficient of Variation 14.0 % Platelet Count 150 K/uL Mean Platelet Volume 10.3 fL Prothrombin Time 10.9 SECONDS Prothromb Time International Ratio 1.0 Sodium Level 137 mmol/L Potassium Level 4.4 mmol/L Chloride Level 101 mmol/L Carbon Dioxide Level 32 mmol/L Anion Gap 4.0 mmol/L Blood Urea Nitrogen 36 mg/dl Creatinine 2.00 mg/dl Est Creatinine Clear Calc Drug Dose 23.8 ml/min Estimated GFR () 27.0 Estimated GFR (Non- 23.3 BUN/Creatinine Ratio 18.2 Random Glucose 126 mg/dl Calcium Level 8.5 mg/dl Assessment and Plan A/P 76 yo female POD#2 s/p bladder biopsy and fulguration. Findings noted with patient - improving but persistent hematuria and upwards trend of her Cr. Will keep until tomorrow to allow for stabilization of renal function and further improvement of hematuria. Ideally would be able to proceed with trial of void prior to DC home. Patient vocalizes understanding of the treatment plan. Continued [facility] stay due to: other (significant hematuria) Discharge planning: home
--- NOTE | 2017-05-13 12:21 | Progress Note ---
Subjective Date of Service: May 13, 2017. Subjective pt had issues last pm with stoner cath obsturction and removal with replacement now no issues and urine is lightening Problem List Medical Problems: (1) Back pain Status: Acute (2) Dyspnea Status: Acute (3) Dyspnea on exertion Status: Acute (4) Lumbar compression fracture Status: Acute (5) Non-ST elevated myocardial infarction Status: Acute Review of Systems Constitutional: No fever, No chills Respiratory: No cough, No sputum Cardiac: No chest pain, No orthopnea, No PND, No edema Abdomen: No pain, No nausea, No vomiting, No diarrhea Female : + hematuria, No dysuria Objective Vital Signs Date Time Temp Pulse Resp B/P (MAP) Pulse Ox O2 Delivery O2 Flow Rate FiO2 05/13/17 07:45 Nasal Cannula 2.0 05/13/17 07:04 36.8 68 18 125/75 (92) 96 Nasal Cannula 2.0 05/13/17 03:16 81 152/79 (103) 05/12/17 23:37 36.6 59 20 160/83 (108) 90 Nasal Cannula 2.0 05/12/17 23:30 Nasal Cannula 2.0 05/12/17 16:40 Room Air 05/12/17 14:55 36.8 77 18 120/74 (89) 90 Room Air Physical Exam General Appearance: WD/WN, + mild distress Neck: supple, no JVD Respiratory/Chest: chest non-tender, lungs clear Cardiovascular: regular rate, rhythm, no murmur Abdomen: normal bowel sounds, non tender, soft Laboratory Results Last 24 Hours Test 05/13/17 06:23 White Blood Count 5.07 K/uL Red Blood Count 3.86 M/uL Hemoglobin 11.0 g/dL Hematocrit 35.5 % Mean Corpuscular Volume 92.0 fL Mean Corpuscular Hemoglobin 28.5 pg Mean Corpuscular Hemoglobin Concent 31.0 g/dl RDW Standard Deviation 47.5 fL RDW Coefficient of Variation 14.0 % Platelet Count 150 K/uL Mean Platelet Volume 10.3 fL Prothrombin Time 10.9 SECONDS Prothromb Time International Ratio 1.0 Sodium Level 137 mmol/L Potassium Level 4.4 mmol/L Chloride Level 101 mmol/L Carbon Dioxide Level 32 mmol/L Anion Gap 4.0 mmol/L Blood Urea Nitrogen 36 mg/dl Creatinine 2.00 mg/dl Est Creatinine Clear Calc Drug Dose 23.8 ml/min Estimated GFR () 27.0 Estimated GFR (Non- 23.3 BUN/Creatinine Ratio 18.2 Random Glucose 126 mg/dl Calcium Level 8.5 mg/dl Assessment and Plan 76 y/o female s/p transurethral resection bladder tumor, fulgeration of large surface area, bilateral retrograde pyelography, right ureteral stent placement by Dr. Riojas on 05/11. bp slightly elevated but did have issues overnight, will add iv prn hydralazine and keep meds the same no changes , ckd 4 is stable stable takotsubo cardiomyopathy/CAD/HTN/dyslipidemia- Coreg 25 mg BID, Simvastatin 40 mg HS, lasix daily dvt prevention is mechanical given hematuria Continued [facility] stay due to: other (significant hematuria) Discharge planning: home
[2017-05-13 14:57] VITALS: BP 112/62; PULSE 81; TEMP 36.6; O2SAT 91
[2017-05-13] MEDS: SIMVASTATIN 40 MG TAB PO SCH (21:03)
[2017-05-13 23:01] VITALS: BP 134/78; PULSE 75; TEMP 36.8; O2SAT 90
[2017-05-14] MEDS: D5W AND 1/2NSS 1,000 ML IV SCH (05:41)
[2017-05-14 07:22] LABS: HEMATOCRIT 31.7 % (37-47); MEAN CELL VOLUME 91.9 fL (80-100); MEAN CORPUSCULAR HEMOGLOBIN 29.3 pg (25-34); MEAN CORPUSCULAR HGB CONC 31.9 g/dl (32-36); MEAN PLATELET VOLUME 9.4 fL (7.4-10.4); PLATELET COUNT 131 K/uL (130-400); RED BLOOD COUNT 3.45 M/uL (4.2-5.4); WHITE BLOOD COUNT 5.04 K/uL (4.8-10.8)
[2017-05-14 07:23] VITALS: BP 121/73; PULSE 87; TEMP 36.7; O2SAT 92
[2017-05-14 07:32] LABS: PROTHROMBIN TIME (PATIENT) 10.5 SECONDS (9.0-12.0)
[2017-05-14 08:00] VITALS: O2SAT 92
[2017-05-14 08:00] LABS: BUN/CREATININE RATIO 21.4 (10-20); CALCIUM 8.4 mg/dl (8.5-10.1); CREATININE 1.7 mg/dl (0.60-1.20)
[2017-05-14] MEDS: FLUTICASONE/SALMETEROL 250/50 (ADVAIR) 14 PUFF/1 INHALER INH SCH (08:07)
[2017-05-14] MEDS: TIOTROPIUM BROMIDE 5 PUFF/90 MCG INH INH SCH (08:08)
[2017-05-14] MEDS: CARVEDILOL 25 MG TAB PO SCH (08:09)
[2017-05-14] MEDS: FUROSEMIDE 20 MG TAB PO SCH (08:09)
[2017-05-14] MEDS: CIPROFLOXACIN 500 MG TAB PO SCH (08:09)
[2017-05-14] MEDS: OXYBUTYNIN CHLORIDE 5 MG TAB PO SCH (08:10)
[2017-05-14] MEDS: DOCUSATE SODIUM 100 MG CAP PO SCH (08:10)
[2017-05-14] MEDS ORDERED: BISACODYL 10 MG SUPP PR PRN (08:45)
[2017-05-14] MEDS: FERROUS SULFATE 325 MG TAB PO SCH (08:59)
[2017-05-14] MEDS ORDERED: BISACODYL 10 MG SUPP PR STA (10:49)
--- NOTE | 2017-05-14 10:54 | Progress Note ---
Subjective Date of Service: May 14, 2017. Subjective Pt evaluation today including: conversation w/ patient, physical exam, chart review, lab review, review of inpatient medication list Pain: Denies PO Intake: Sunitha PO reg diet Voiding: stoner catheter in place (urine light pink) 76 yo female POD#3 s/p cysto, bladder biopsy, R stent. Her urine appearance continues to improve, light pink currently, Cr down this AM. She denies other specific complaints save constipation - has been taking PO stool softeners. Past notes and hospitalist input reviewed and appreciated. Problem List Medical Problems: (1) Back pain Status: Acute (2) Dyspnea Status: Acute (3) Dyspnea on exertion Status: Acute (4) Lumbar compression fracture Status: Acute (5) Non-ST elevated myocardial infarction Status: Acute Review of Systems Constitutional: No fever, No chills Eyes: No worsening of vision ENT: No sore throat Respiratory: No wheezing, No shortness of breath Cardiac: No chest pain Abdomen: + constipation, No nausea, No vomiting Female : + see HPI, + urinary frequency, + hematuria Neurologic: No memory loss, No paralysis Psychiatric: No depression symptoms, No anxiety Skin: No new/changing skin lesions, No color change Objective Vital Signs Date Time Temp Pulse Resp B/P (MAP) Pulse Ox O2 Delivery O2 Flow Rate FiO2 05/14/17 08:00 92 Room Air 05/14/17 07:23 36.7 87 16 121/73 (89) 92 Room Air 05/14/17 00:00 Nasal Cannula 2.0 05/13/17 23:01 36.8 75 18 134/78 (96) 90 Room Air 05/13/17 15:45 Room Air 05/13/17 14:57 36.6 81 18 112/62 (79) 91 Room Air Physical Exam General Appearance: WD/WN, no apparent distress ENT: hearing grossly normal Neck: supple, no adenopathy Respiratory/Chest: no respiratory distress, no accessory muscle use Cardiovascular: no JVD Abdomen: non tender, soft Extremities: non-tender Neurologic/Psychiatric: alert, oriented x 3 Skin: normal color Laboratory Results Last 24 Hours Test 05/14/17 07:06 White Blood Count 5.04 K/uL Red Blood Count 3.45 M/uL Hemoglobin 10.1 g/dL Hematocrit 31.7 % Mean Corpuscular Volume 91.9 fL Mean Corpuscular Hemoglobin 29.3 pg Mean Corpuscular Hemoglobin Concent 31.9 g/dl RDW Standard Deviation 47.5 fL RDW Coefficient of Variation 14.1 % Platelet Count 131 K/uL Mean Platelet Volume 9.4 fL Prothrombin Time 10.5 SECONDS Prothromb Time International Ratio 1.0 Sodium Level 140 mmol/L Potassium Level 4.0 mmol/L Chloride Level 106 mmol/L Carbon Dioxide Level 30 mmol/L Anion Gap 4.0 mmol/L Blood Urea Nitrogen 36 mg/dl Creatinine 1.70 mg/dl Est Creatinine Clear Calc Drug Dose 28.0 ml/min Estimated GFR () 32.9 Estimated GFR (Non- 28.4 BUN/Creatinine Ratio 21.4 Random Glucose 104 mg/dl Calcium Level 8.4 mg/dl Assessment and Plan A/P 76 yo female POD#3 s/p bladder biopsy and fulguration. Cr improved, appearance of urine improved - we are pleased with both. 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 As noted, her irritative symptoms and hematuria will likely continue with indwelling stent. Dulcolax supp x 1 today, continue stool softeners. Rx for short course of Cipro and Colace at home. Strategies for constipation at home, eg enema if no BM by tomorrow, reviewed. DC home today after void, outpatient appointments reviewed. Continued [facility] stay due to: other (significant hematuria) Discharge planning: home
[2017-05-14] MEDS ORDERED: CPR500 PO (10:56)
[2017-05-14] MEDS ORDERED: CLC100 PO (10:56)
--- NOTE | 2017-05-14 11:18 | Progress Note ---
Subjective Date of Service: May 14, 2017. Subjective this pt is doing well , discharged but urology Problem List Medical Problems: (1) Back pain Status: Acute (2) Dyspnea Status: Acute (3) Dyspnea on exertion Status: Acute (4) Lumbar compression fracture Status: Acute (5) Non-ST elevated myocardial infarction Status: Acute Review of Systems Constitutional: No fever, No chills, No weakness Respiratory: No cough, No sputum, No wheezing Cardiac: No chest pain, No orthopnea, No edema Abdomen: No pain, No nausea, No vomiting, No diarrhea Objective Vital Signs Date Time Temp Pulse Resp B/P (MAP) Pulse Ox O2 Delivery O2 Flow Rate FiO2 05/14/17 08:00 92 Room Air 05/14/17 07:23 36.7 87 16 121/73 (89) 92 Room Air 05/14/17 00:00 Nasal Cannula 2.0 05/13/17 23:01 36.8 75 18 134/78 (96) 90 Room Air 05/13/17 15:45 Room Air 05/13/17 14:57 36.6 81 18 112/62 (79) 91 Room Air Physical Exam General Appearance: WD/WN, + mild distress Neck: supple, no JVD Respiratory/Chest: chest non-tender, lungs clear, normal breath sounds Cardiovascular: regular rate, rhythm, no murmur Abdomen: normal bowel sounds, non tender, soft Laboratory Results Last 24 Hours Test 05/14/17 07:06 White Blood Count 5.04 K/uL Red Blood Count 3.45 M/uL Hemoglobin 10.1 g/dL Hematocrit 31.7 % Mean Corpuscular Volume 91.9 fL Mean Corpuscular Hemoglobin 29.3 pg Mean Corpuscular Hemoglobin Concent 31.9 g/dl RDW Standard Deviation 47.5 fL RDW Coefficient of Variation 14.1 % Platelet Count 131 K/uL Mean Platelet Volume 9.4 fL Prothrombin Time 10.5 SECONDS Prothromb Time International Ratio 1.0 Sodium Level 140 mmol/L Potassium Level 4.0 mmol/L Chloride Level 106 mmol/L Carbon Dioxide Level 30 mmol/L Anion Gap 4.0 mmol/L Blood Urea Nitrogen 36 mg/dl Creatinine 1.70 mg/dl Est Creatinine Clear Calc Drug Dose 28.0 ml/min Estimated GFR () 32.9 Estimated GFR (Non- 28.4 BUN/Creatinine Ratio 21.4 Random Glucose 104 mg/dl Calcium Level 8.4 mg/dl Assessment and Plan 76 y/o female s/p transurethral resection bladder tumor, fulgeration of large surface area, bilateral retrograde pyelography, right ureteral stent placement by Dr. Riojas on 05/11. bp better control, keep meds the same no changes , ckd 4 is stable stable takotsubo cardiomyopathy/CAD/HTN/dyslipidemia- Coreg 25 mg BID, Simvastatin 40 mg HS, lasix daily dvt prevention is mechanical given hematuria Continued [facility] stay due to: other (significant hematuria) Discharge planning: home
[2017-05-14 11:38] VITALS: BP 121/73; PULSE 87; TEMP 36.7; O2SAT 92
[2017-05-14] MEDS ORDERED: CARV25TA2 PO (13:43)
== END 2017-05-14 13:45 | disposition home or self-care (01) | DRG 669 ==
LOC: C.ACU 07:07 → C.MSN 12:27 → ENRESERV 12:54 → OBSVTOIN 05-12 10:55
PROVIDERS: ADMIT Urology; ATTEND Urology
PROC: 0T5B8ZZ Destruction of Bladder, Via Natural or Artificial Opening Endoscopic (ICD-10-PCS; principal; 2017-05-11 08:45)
PROC: 0T768DZ Dilation of Right Ureter with Intraluminal Device, Via Natural or Artificial Opening Endoscopic (ICD-10-PCS; principal; 2017-05-11 08:45)
PROC: 0TBB8ZZ Excision of Bladder, Via Natural or Artificial Opening Endoscopic (ICD-10-PCS; principal; 2017-05-11 08:45)
PROC: 0TBB8ZX Excision of Bladder, Via Natural or Artificial Opening Endoscopic, Diagnostic (ICD-10-PCS; principal; 2017-05-11 08:45)
PROC: 0TBC8ZZ Excision of Bladder Neck, Via Natural or Artificial Opening Endoscopic (ICD-10-PCS; principal; 2017-05-11 08:45)
DX: C67.4 Malignant neoplasm of posterior wall of bladder (principal); N18.4 Chronic kidney disease, stage 4 (severe); I51.81 Takotsubo syndrome; C67.5 Malignant neoplasm of bladder neck; C67.2 Malignant neoplasm of lateral wall of bladder; I12.9 Hypertensive chronic kidney disease with stage 1 through stage 4 chronic kidney disease, or unspecified chronic kidney disease; I25.10 Atherosclerotic heart disease of native coronary artery without angina pectoris; E78.5 Hyperlipidemia, unspecified; J44.9 Chronic obstructive pulmonary disease, unspecified; K59.00 Constipation, unspecified; Z79.01 Long term (current) use of anticoagulants; Z79.899 Other long term (current) drug therapy; Z87.891 Personal history of nicotine dependence

== ENCOUNTER → 2017-05-19 | Outpatient (CLI) | payer OTHER, MEDICARE ==
[~2017-05-19] MED LIST changes: -ATROPINE SULFATE 0.1 MG/ML 5ML SYR IV PRN; -CIPROFLOXACIN / D5W 400 MG IV SCH; +CLC100 PO; +CPR500 PO; +ENOX30IN4 SQ; -EpHEDrine SULFATE INJ 50 MG/ML AMP IV PRN; -FENTANYL CITRATE INJ 50 MCG/1 ML 2 ML VIAL IV PRN; +HYDR-3419 PO; -ONDANSETRON INJ 2 MG/ML 2 ML VIAL IV PRN; -SODIUM CHLORIDE 0.9% 1000ML 1,000 ML IV SCH
== END | disposition home or self-care (01) ==
LOC: C.LABSPEC 15:09
PROVIDERS: ATTEND Urology
DX: R31.29 Other microscopic hematuria (principal); C67.9 Malignant neoplasm of bladder, unspecified

== ENCOUNTER → 2017-05-23 | Outpatient (CLI) | payer OTHER, MEDICARE | END | disposition home or self-care (01) | LOC: C.LABSPEC 17:00 | PROVIDERS: ATTEND Urology | DX: C67.9 Malignant neoplasm of bladder, unspecified (principal) ==

== ENCOUNTER → 2017-05-31 | Outpatient (CLI) | payer OTHER, MEDICARE ==
[~2017-05-31] MED LIST changes: -CLC100 PO; -CPR500 PO; -HYDR-3419 PO
[2017-05-31 09:39] LABS: BASO % 0.8 %; BASO ABS # 0.04 K/uL (0-0.2); COMPLETE YES; EOS % 3.3 %; HEMATOCRIT 38.9 % (37-47); IG% 0.2 %; LYMPH % 24.8 %; LYMPH ABS # 1.28 K/uL (1.2-3.4); MEAN CELL VOLUME 93.7 fL (80-100); MEAN CORPUSCULAR HEMOGLOBIN 29.2 pg (25-34); MEAN CORPUSCULAR HGB CONC 31.1 g/dl (32-36); MEAN PLATELET VOLUME 10.3 fL (7.4-10.4); MONO % 9.3 %; NEUT % 61.6 %; PLATELET COUNT 246 K/uL (130-400); RED BLOOD COUNT 4.15 M/uL (4.2-5.4); WHITE BLOOD COUNT 5.16 K/uL (4.8-10.8)
[2017-05-31 09:41] LABS: URINE APPEARANCE CLOUDY (CLEAR); URINE BILIRUBIN NEG (NEG); URINE COLOR ORANGE; URINE EPITHELIAL CELL AUTO >30 /lpf (0-5); URINE NITRITE NEG (NEG); URINE PH 5.5 (4.5-7.5); URINE SPECIFIC GRAVITY 1.016 (1.000-1.030); UROBILINOGEN NEG (NEG)
[2017-05-31 09:42] LABS: MANUAL MICROSCOPIC REQUIRED? NO; REVIEW REQ? YES
[2017-05-31 09:52] LABS: BLOOD UREA NITROGEN 31 mg/dl (7-18); GLUCOSE 101 mg/dl (70-99)
[2017-05-31 09:53] LABS: ALT/SGPT 20 U/L (12-78); BUN/CREATININE RATIO 19.3 (10-20); CALCIUM 9.2 mg/dl (8.5-10.1); CARBON DIOXIDE 30 mmol/L (21-32); CHLORIDE 105 mmol/L (98-107); CHOLESTEROL 166 mg/dl (0-200); POTASSIUM 3.9 mmol/L (3.5-5.1); SODIUM 141 mmol/L (136-145)
[2017-05-31 10:02] LABS: ALKALINE PHOSPHATASE 93 U/L (45-117); AST/SGOT 11 U/L (15-37); CHOLESTEROL/HDL RATIO 3.3; HDL CHOLESTEROL 50 mg/dl; LDL CHOLESTEROL CALCULATED 83 mg/dl; THYROID STIMULATING HORMONE 0.379 uIu/ml (0.300-4.500); TRIGLYCERIDES 167 mg/dl (0-150); VERY LOW DENSITY LIPOPROT CALC 33 mg/dl
[2017-05-31 10:13] LABS: URINE PROTIEN/CREAT RATIO 0.2 (0-0.2); URINE TOTAL PROTEIN 37.6 mg/dl (0-11.9)
== END | disposition home or self-care (01) ==
LOC: C.LAB1850 07:15
PROVIDERS: ATTEND Internal Medicine Nephrology
DX: E78.5 Hyperlipidemia, unspecified (principal); R94.6 Abnormal results of thyroid function studies; E55.9 Vitamin D deficiency, unspecified; N18.4 Chronic kidney disease, stage 4 (severe); D64.9 Anemia, unspecified; R31.29 Other microscopic hematuria; I12.9 Hypertensive chronic kidney disease with stage 1 through stage 4 chronic kidney disease, or unspecified chronic kidney disease; C67.9 Malignant neoplasm of bladder, unspecified

== ENCOUNTER 2017-06-08 05:32 | Day surgery (SDC) | payer OTHER, MEDICARE ==
[2017-05-30 08:32] VITALS: BMI 33.0
[~2017-06-08] VITALS: Ht 162.6 cm; Wt 80.0 kg
[2017-06-08 05:55] VITALS: BP 187/98; PULSE 73; TEMP 36.6; O2SAT 98; Ht 162.6 cm; Wt 80.0 kg
[2017-06-08] MEDS ORDERED: LACTATED RINGER'S 1000ML 1,000 ML IV SCH (06:00)
[2017-06-08] MEDS ORDERED: CIPROFLOXACIN / D5W 400 MG IV SCH (06:00)
[2017-06-08 06:32] LABS: INR 0.9 (0.9-1.1); PROTHROMBIN TIME (PATIENT) 9.9 SECONDS (9.0-12.0)
[2017-06-08] MEDS ORDERED: MIDAZOLAM HCL 1 MG/ML 2ML VIAL ONE (06:53)
[2017-06-08] MEDS ORDERED: FENTANYL CITRATE INJ 50 MCG/1 ML 2 ML VIAL ONE (06:53)
[2017-06-08] MEDS ORDERED: PROPOFOL IV EMULSION 10 MG/ML 20 ML VIAL IV ONE (06:57)
[2017-06-08] MEDS ORDERED: ONDANSETRON INJ 2 MG/ML 2 ML VIAL ONE (07:53)
[2017-06-08] MEDS ORDERED: EpHEDrine SULFATE 50MG/5ML SYR ONE (08:02)
[2017-06-08] MEDS ORDERED: ATROPINE SULFATE 0.1 MG/ML 5ML SYR IV PRN (08:45)
[2017-06-08] MEDS ORDERED: FENTANYL CITRATE INJ 50 MCG/1 ML 2 ML VIAL IV PRN (08:45)
[2017-06-08] MEDS ORDERED: EpHEDrine SULFATE INJ 50 MG/ML AMP IV PRN (08:45)
[2017-06-08] MEDS ORDERED: ONDANSETRON INJ 2 MG/ML 2 ML VIAL IV PRN (08:45)
--- NOTE | 2017-06-08 08:51 | [facility] Post Operative Brief Note ---
Immediate Operative Summary Operative Date Jun 08, 2017. Pre-Operative Diagnosis Bladder Cancer Post-Operative Diagnosis same Procedure(s) Performed Bladder biopsy and fulguration over a medium surface area Surgeon Dr. Riojas Registered Sales Assistant Surgeon(s) none Estimated Blood Loss 200 cc Findings multiple 2 mm to 1 cm areas of tmor scattered mainly on lateral lerma near bladder neck pt bled very easily with just touchind the tissue pt appeared to have an allergic reaction to the hibaclens wash with red raied area around vulva Specimens bladder biopsy
--- NOTE | 2017-06-08 10:22 | Anesthesiology Progress Note ---
Anesthesia Post Op Note Date & Time Jun 08, 2017 at 10:22 Vital Signs Pain Intensity: 0 Vital Signs Past 12 Hours Date Time Temp Pulse Resp B/P (MAP) Pulse Ox O2 Delivery O2 Flow Rate FiO2 06/08/17 10:00 64 14 167/61 100 Nasal Cannula 2 06/08/17 09:45 59 14 158/67 100 Nasal Cannula 2 06/08/17 09:35 60 15 160/68 100 Nasal Cannula 2 06/08/17 09:25 36.3 65 16 158/76 100 Nasal Cannula 2 06/08/17 09:15 70 16 168/76 100 Oxymask 2 06/08/17 09:05 64 14 171/78 100 Oxymask 2 06/08/17 08:55 65 14 172/77 100 Oxymask 5 06/08/17 08:45 67 14 163/77 100 Oxymask 10 06/08/17 08:37 36.4 73 12 178/83 100 Oxymask 10 06/08/17 05:55 36.6 73 20 187/98 (127) 98 Room Air Notes Mental Status: alert / awake / arousable, participated in evaluation Pt Amnestic to Procedure: Yes Nausea / Vomiting: adequately controlled Pain: adequately controlled Airway Patency, RR, SpO2: stable & adequate BP & HR: stable & adequate Hydration State: stable & adequate Anesthetic Complications: no major complications apparent
--- NOTE | 2017-06-08 10:29 | Discharge Instructions ---
Discharge Instructions Date of Service Jun 08, 2017. Visit Reason for Visit: Bladder Cancer Discharge Discharge Diagnosis / Problem: bladder cancer Discharge Goals Goal(s): Decrease discomfort, Increase independence, Improve disease control Medications Stopped Medications Name(s): coumadin and lovenox Activity Recommendations Activity Limitations: as noted below (drink lots of fluid and clear activity) Anesthesia . Post Anesthesia Instructions: If you have had General Anesthesia or IV Sedation: * Do not drive today. * Resume driving when surgeon permits. * Do not make important decisions or sign legal documents today. * Call surgeon for: 1. Temperature elevations greater than 101 degrees F. 2. Uncontrollable pain. 3. Excessive bleeding. 4. Persistent nausea and vomiting. 5. Medication intolerance (nausea, vomiting or rash). * For nausea and vomiting use only clear liquids such as: tea, soda, bouillon until nausea subsides, then gradually increase diet as tolerated. * If you have any concerns or questions, call your surgeon's office. If physician is unavailable and it is an emergency, call 911 or go to the nearest emergency room. . Diet Recommendations Recommended Home Diet: resume previous diet Procedures Procedures Performed: Bladder biopsy and fulguration over a medium surface area Pending Studies Studies pending at discharge: no Medical Emergencies . Who to Call and When: Medical Emergencies: If at any time you feel your situation is an emergency, please call 911 immediately. . Non-Emergent Contact Non-Emergency issues call your: Urologist Call Non-Emergent contact if: temperature is above 101 (if blood in urine has clots oor is much bloodier call , Hold lovenox until urine clear) . . "Provider Documentation" section prepared by Lenny Riojas. .
[2017-06-08 10:44] VITALS: BP 159/71; PULSE 69; TEMP 36.3; O2SAT 94
--- NOTE | 2017-06-08 10:57 | OPERATIVE REPORT ---
DATE OF OPERATION: 06/08/2017 PREOPERATIVE DIAGNOSIS: Bladder cancer. POSTOPERATIVE DIAGNOSIS: Same. PROCEDURE PERFORMED: Bladder biopsy and fulguration of medium surface area. SURGEON: Dr. Riojas. INDICATIONS: The patient is a 76-year-old female on blood thinner normally who had previously a bilateral retrograde and TURBT with a right stent placed. During stent removal was noted to have residual tumor. The patient was brought back for fulguration and removal of this residual tumor prior to BCG. DESCRIPTION OF THE PROCEDURE: The patient was taken to the operating room and general anesthesia was administered, she had placed in dorsal lithotomy position and prepped and draped in usual sterile fashion. She had been given Lovenox last evening. Because of this and her high creatinine she oozed more easily than normal, but all the areas of tumor that I could see and there were several 1 cm tumors and multiple small areas of tumor were fulgurated. I did do 1 biopsy near the left trigone but it bled more when you did a deep biopsy than when you just fulgurated so I continued to do this until no more tumor was seen. Even with this, there was a moderate amount of bleeding because of the friability of all her tissues. A 20-[place] catheter was placed. She was transferred to the recovery room. At the end of the procedure she did have some irritation from the Hibiclens which she may be allergic to so antifungal was placed on this as well as a barrier cream and she was given Benadryl at the end of the procedure. I attest to the content of the Intraoperative Record and any orders documented therein. Any exception s are noted below.
[2017-06-08 11:45] VITALS: BP 145/85; PULSE 70; TEMP 36.2; O2SAT 96
[2017-06-08 12:15] VITALS: BP 156/75; PULSE 73; TEMP 36.4; O2SAT 95
== END 2017-06-08 12:34 | disposition home or self-care (01) ==
LOC: C.ACU 05:32
PROVIDERS: ATTEND Urology
DX: C67.9 Malignant neoplasm of bladder, unspecified (principal); D64.9 Anemia, unspecified; Z79.01 Long term (current) use of anticoagulants; I42.9 Cardiomyopathy, unspecified; I12.9 Hypertensive chronic kidney disease with stage 1 through stage 4 chronic kidney disease, or unspecified chronic kidney disease; N18.4 Chronic kidney disease, stage 4 (severe); E78.5 Hyperlipidemia, unspecified; J44.9 Chronic obstructive pulmonary disease, unspecified; G47.34 Idiopathic sleep related nonobstructive alveolar hypoventilation; N25.81 Secondary hyperparathyroidism of renal origin; I51.81 Takotsubo syndrome; E55.9 Vitamin D deficiency, unspecified; Z86.711 Personal history of pulmonary embolism; Z87.891 Personal history of nicotine dependence; Z79.899 Other long term (current) drug therapy

== ENCOUNTER → 2017-07-06 | Outpatient (CLI) | payer OTHER, MEDICARE ==
[~2017-07-06] MED LIST changes: -ENOX30IN4 SQ; -WARF2TAB8 PO
== END | disposition home or self-care (01) ==
LOC: C.LABSPEC 16:31
PROVIDERS: ATTEND Nurse Practitioner Family
DX: R39.9 Unspecified symptoms and signs involving the genitourinary system (principal)

== ENCOUNTER → 2017-08-03 | Outpatient (CLI) | payer OTHER, MEDICARE | END | disposition home or self-care (01) | LOC: C.LABSPEC 17:07 | PROVIDERS: ATTEND Nurse Practitioner Family | DX: R39.9 Unspecified symptoms and signs involving the genitourinary system (principal) ==

== ENCOUNTER → 2017-08-10 | Outpatient (CLI) | payer OTHER, MEDICARE ==
[2017-08-10 09:48] LABS: PROTHROMBIN TIME (PATIENT) 62.4 SECONDS (9.0-12.0)
[2017-08-10 09:51] LABS: INR 5.4 (0.9-1.1)
== END | disposition home or self-care (01) ==
LOC: C.LAB1850 07:36
PROVIDERS: ATTEND Internal Medicine
DX: Z79.01 Long term (current) use of anticoagulants (principal); Z51.81 Encounter for therapeutic drug level monitoring

== ENCOUNTER → 2017-08-25 | Outpatient (CLI) | payer OTHER, MEDICARE | END | disposition home or self-care (01) | LOC: C.LABSPEC 14:38 | PROVIDERS: ATTEND Urology | DX: R39.9 Unspecified symptoms and signs involving the genitourinary system (principal) ==

== ENCOUNTER → 2017-09-25 | Outpatient (CLI) | payer OTHER, MEDICARE ==
[2017-09-25 10:33] LABS: MEAN CELL VOLUME 92.6 fL (80-100); MEAN CORPUSCULAR HEMOGLOBIN 29.6 pg (25-34); MEAN PLATELET VOLUME 10.2 fL (7.4-10.4); PLATELET COUNT 202 K/uL (130-400); RED BLOOD COUNT 4.32 M/uL (4.2-5.4); WHITE BLOOD COUNT 6.86 K/uL (4.8-10.8)
[2017-09-25 10:43] LABS: URINE APPEARANCE CLEAR (CLEAR); URINE BILIRUBIN NEG (NEG); URINE COLOR YELLOW; URINE EPITHELIAL CELL AUTO >30 /lpf (0-5); URINE NITRITE NEG (NEG); URINE SPECIFIC GRAVITY 1.017 (1.000-1.030); UROBILINOGEN NEG (NEG)
[2017-09-25 10:46] LABS: MANUAL MICROSCOPIC REQUIRED? NO; REVIEW REQ? NO
[2017-09-25 10:48] LABS: BLOOD UREA NITROGEN 35 mg/dl (7-18); CALCIUM 9.1 mg/dl (8.5-10.1); CARBON DIOXIDE 28 mmol/L (21-32); CHLORIDE 105 mmol/L (98-107); CREATININE 1.67 mg/dl (0.60-1.20); GLUCOSE 128 mg/dl (70-99); POTASSIUM 3.9 mmol/L (3.5-5.1); SODIUM 141 mmol/L (136-145)
[2017-09-25 10:49] LABS: PHOSPHORUS 3.6 mg/dl (2.5-4.9)
[2017-09-25 11:05] LABS: CREATININE, URINE 97.9 mg/dl; URINE PROTIEN/CREAT RATIO 0.3 (0-0.2); URINE TOTAL PROTEIN 32.7 mg/dl (0-11.9)
== END | disposition home or self-care (01) ==
LOC: C.LAB1850 08:54
PROVIDERS: ATTEND Internal Medicine Nephrology
DX: I12.9 Hypertensive chronic kidney disease with stage 1 through stage 4 chronic kidney disease, or unspecified chronic kidney disease (principal); N18.9 Chronic kidney disease, unspecified; D64.9 Anemia, unspecified; N25.81 Secondary hyperparathyroidism of renal origin; R31.29 Other microscopic hematuria; E55.9 Vitamin D deficiency, unspecified

== ENCOUNTER 2017-10-26 07:06 | Day surgery (SDC) | payer OTHER, MEDICARE ==
[2017-10-12 14:58] VITALS: Ht 170.2 cm; Wt 82.1 kg
--- NOTE | 2017-10-12 15:25 | PAT Medication Instructions ---
Service Date Oct 12, 2017. Current Home Medication List Carvedilol (Coreg), 25 MG PO BID Enoxaparin (Lovenox), 30 MG SQ Q12H PRN for UD Ferrous Sulfate (Kp Ferrous Sulfate), 1 TAB PO QAM Fluticasone Furoate-Vilanterol (Breo Ellipta 200-25 Mcg/INH), 1 DOSE INH QAM Furosemide (Lasix), 20 MG PO QAM Home O2 Therapy (Oxygen), 2 LITERS NA HS Nystatin (Nystatin Cream), 0 EXT PRN Sennosides-Docusate Sodium (Senna S), 1 TAB PO DAILY PRN for PRN Simvastatin (Zocor), 40 MG PO HS Tiotropium [place] (Spiriva Respimat), 1 PUFF INH QAM Tramadol (Ultram), 1 TAB PO PRN Warfarin Sod (Jantoven), 2 MG PO QPM Medication Instructions For Your Scheduled Surgery - Follow instructions by prescribing physician: Enoxaparin (Lovenox), 30 MG SQ Q12H PRN for UD Warfarin Sod (Jantoven), 2 MG PO QPM - Hold the following medications 24 hours prior to surgery: Nystatin (Nystatin Cream), 0 EXT PRN - Hold the following medications the morning of surgery: Ferrous Sulfate (Kp Ferrous Sulfate), 1 TAB PO QAM Furosemide (Lasix), 20 MG PO QAM Sennosides-Docusate Sodium (Senna S), 1 TAB PO DAILY PRN for PRN - Take the following medications the morning of surgery with a sip of water OTHERWISE NOTHING TO EAT OR DRINK AFTER MIDNIGHT: Fluticasone Furoate-Vilanterol (Breo Ellipta 200-25 Mcg/INH), 1 DOSE INH QAM Carvedilol (Coreg), 25 MG PO BID Tramadol (Ultram), 1 TAB PO PRN (may take if needed up to 4 hours prior to surgery) Tiotropium [place] (Spiriva Respimat), 1 PUFF INH QAM - Take the following medications as scheduled the night before surgery: Carvedilol (Coreg), 25 MG PO BID Tramadol (Ultram), 1 TAB PO PRN Simvastatin (Zocor), 40 MG PO HS Sennosides-Docusate Sodium (Senna S), 1 TAB PO DAILY PRN for PRN If you have any questions please call us at [phone] or [phone] or [phone]
[2017-10-12 15:58] LABS: BASO % 0.6 %; BASO ABS # 0.03 K/uL (0-0.2); EOS % 3.4 %; EOS ABS # 0.16 K/uL (0-0.5); HEMATOCRIT 39.9 % (37-47); HEMOGLOBIN 12.9 g/dL (12.0-16.0); IG# 0.01 K/uL (0.00-0.02); LYMPH ABS # 1.12 K/uL (1.2-3.4); MEAN CELL VOLUME 92.4 fL (80-100); MEAN CORPUSCULAR HEMOGLOBIN 29.9 pg (25-34); MEAN CORPUSCULAR HGB CONC 32.3 g/dl (32-36); MEAN PLATELET VOLUME 10.1 fL (7.4-10.4); MONO % 5.8 %; MONO ABS # 0.27 K/uL (0.11-0.59); NEUT ABS # 3.08 K/uL (1.4-6.5); PLATELET COUNT 202 K/uL (130-400); RED CELL DISTRIBUTION WIDTH CV 14.2 % (11.5-14.5); RED CELL DISTRIBUTION WIDTH SD 48.3 fL (36.4-46.3); WHITE BLOOD COUNT 4.67 K/uL (4.8-10.8)
--- NOTE | 2017-10-12 16:01 | DIAGNOSTIC IMAGING REPORT ---
CHEST 2 VIEWS ROUTINE CLINICAL HISTORY: PAT preoperative evaluation COMPARISON STUDY: 06/29/2016 FINDINGS: Mild/moderate emphysematous change. Chronic parenchymal scarring right base. Lungs otherwise appear clear. Diaphragms are smooth. Degenerative changes thoracic spine. IMPRESSION: Chronic change. No acute process. The above report was generated using voice recognition software. It may contain grammatical, syntax or spelling errors. Electronically signed by: Sacha Wilson M.D. 10/12/2017 4:00 PM Dictated Date/Time: 10/12/2017 3:59 PM
[2017-10-12 16:04] LABS: CALCIUM 8.9 mg/dl (8.5-10.1); CREATININE 1.8 mg/dl (0.60-1.20); POTASSIUM 3.5 mmol/L (3.5-5.1)
[~2017-10-26] VITALS: Ht 170.2 cm; Wt 82.1 kg
[~2017-10-26 07:06] MED LIST changes: -ADVIN25/60 INH; +CIPROFLOXACIN / D5W 400 MG IV SCH; +ENOX30IN4 SQ; -ERGO1CAP35 PO; +FERR1TAB13 PO; -FERR325T51 PO; +FLUT1INH7 INH; +LACTATED RINGER'S 1000ML 1,000 ML IV SCH; +NYSCR30 EXT; +TRAM-10 PO; +WARF2TAB8 PO
[2017-10-26] MEDS ORDERED: ATROPINE SULFATE 0.1 MG/ML 5ML SYR IV PRN (07:45)
[2017-10-26] MEDS ORDERED: EpHEDrine SULFATE INJ 50 MG/ML AMP IV PRN (07:45)
[2017-10-26] MEDS ORDERED: PROMETHAZINE HCL INJ 12.5 MG in SODIUM CHLORIDE 0.9% 50ML 50 ML IV PRN (07:45)
[2017-10-26] MEDS ORDERED: ONDANSETRON INJ 2 MG/ML 2 ML VIAL IV PRN (07:45)
[2017-10-26] MEDS ORDERED: FENTANYL CITRATE INJ 50 MCG/1 ML 2 ML VIAL IV PRN (07:45)
[2017-10-26] MEDS ORDERED: HYDROmorphone INJ 1 MG/ML SYR IV PRN (07:45)
[2017-10-26 07:49] VITALS: BP 115/93; PULSE 76; TEMP 36.4; O2SAT 97
[2017-10-26 08:03] LABS: INR 1.1 (0.9-1.1); PTT PATIENT 27.6 SECONDS (21.0-31.0)
[2017-10-26] MEDS ORDERED: FENTANYL CITRATE INJ 50 MCG/1 ML 2 ML VIAL ONE ×2 (08:16→09:50)
[2017-10-26] MEDS ORDERED: MIDAZOLAM HCL 1 MG/ML 2ML VIAL ONE (08:16)
--- NOTE | 2017-10-26 08:58 | History & Physical Bridge Note ---
H&P Re-Evaluation Bridge Note: [id number] I have examined the patient, reviewed the History & Physical and in the interval since the performance of the History & Physical I have noted the following changes of clinical significance: No changes noted
[2017-10-26] MEDS ORDERED: LIDOCAINE HCL 2% 2 ML VIAL (20MG/ML) ONE (09:19)
[2017-10-26] MEDS ORDERED: EpHEDrine SULFATE 50MG/5ML SYR ONE (09:19)
[2017-10-26] MEDS ORDERED: PROPOFOL IV EMULSION 10 MG/ML 20 ML VIAL IV ONE (09:19)
[2017-10-26] MEDS ORDERED: DEXAMETHASONE SOD INJ 4 MG/ML VIAL ONE (09:19)
[2017-10-26] MEDS ORDERED: ONDANSETRON INJ 2 MG/ML 2 ML VIAL ONE (09:19)
--- NOTE | 2017-10-26 10:19 | [facility] Post Operative Brief Note ---
Immediate Operative Summary Operative Date Oct 26, 2017. Pre-Operative Diagnosis Recurrent transitional cell carcinoma of bladder Post-Operative Diagnosis same as preop Procedure(s) Performed Cystoscopy, Fulguration of Large surface area, and Multiple Cup Biopsies of Bladder Surgeon Dr. Riojas Lathe Sander Surgeon(s) none Estimated Blood Loss 10 ml Findings fiffuse erythema over varius places on bladder wall worse r lateral and l lateral no definate tumor mass seen oozing began prior to biobsy almost as if pt had radiation cystitis Specimens A: Left lateral wall B: Right posterior wall C: Right lateral wall D: Posterior wall Drains stoner Complication(s) None Disposition Recovery Room / PACU
[2017-10-26] MEDS ORDERED: NITR1CAP33 PO (10:21)
--- NOTE | 2017-10-26 10:24 | Discharge Instructions ---
Discharge Instructions Date of Service Oct 26, 2017. Visit Reason for Visit: Bladder Tumor Discharge Discharge Diagnosis / Problem: post op bladder biopsy Discharge Goals Goal(s): Increase independence, Improve disease control Medications Restart Stopped Medication(s): start coumadin and lovenox when there is no visible blood in urine Activity Recommendations Activity Limitations: resume your previous activity Anesthesia . Post Anesthesia Instructions: If you have had General Anesthesia or IV Sedation: * Do not drive today. * Resume driving when surgeon permits. * Do not make important decisions or sign legal documents today. * Call surgeon for: 1. Temperature elevations greater than 101 degrees F. 2. Uncontrollable pain. 3. Excessive bleeding. 4. Persistent nausea and vomiting. 5. Medication intolerance (nausea, vomiting or rash). * For nausea and vomiting use only clear liquids such as: tea, soda, bouillon until nausea subsides, then gradually increase diet as tolerated. * If you have any concerns or questions, call your surgeon's office. If physician is unavailable and it is an emergency, call 911 or go to the nearest emergency room. . Diet Recommendations Recommended Home Diet: resume previous diet Procedures Procedures Performed: Cystoscopy, Fulguration of Large surface area, and Multiple Cup Biopsies of Bladder Pending Studies Studies pending at discharge: no Medical Emergencies . Who to Call and When: Medical Emergencies: If at any time you feel your situation is an emergency, please call 911 immediately. . Non-Emergent Contact Non-Emergency issues call your: Urologist Call Non-Emergent contact if: temperature is above 100.5, your pain is not controlled bleeding severe . . "Provider Documentation" section prepared by Lenny Riojas. .
--- NOTE | 2017-10-26 10:46 | Anesthesiology Progress Note ---
Anesthesia Post Op Note Date & Time Oct 26, 2017 at 10:45 Vital Signs Pain Intensity: 0 Vital Signs Past 12 Hours Date Time Temp Pulse Resp B/P (MAP) Pulse Ox O2 Delivery O2 Flow Rate FiO2 10/26/17 10:40 64 16 170/77 93 Room Air 10/26/17 10:30 67 16 172/73 98 Room Air 10/26/17 10:20 71 16 167/76 99 Oxymask 10 10/26/17 10:14 36.7 89 16 165/85 99 Oxymask 10 10/26/17 07:49 36.4 76 20 115/93 (100) 97 Room Air Notes Mental Status: alert / awake / arousable, participated in evaluation Pt Amnestic to Procedure: Yes Nausea / Vomiting: adequately controlled Pain: adequately controlled Airway Patency, RR, SpO2: stable & adequate BP & HR: stable & adequate Hydration State: stable & adequate Anesthetic Complications: no major complications apparent
[2017-10-26 11:00] VITALS: BP 171/78; PULSE 64; TEMP 36.5; O2SAT 93
[2017-10-26 11:30] VITALS: BP 175/76; PULSE 67; TEMP 36.2; O2SAT 94
[2017-10-26 12:00] VITALS: BP 160/87; PULSE 66; TEMP 36.2; O2SAT 94
--- NOTE | 2017-10-26 18:45 | OPERATIVE REPORT ---
DATE OF OPERATION: 10/26/2017 PROCEDURE PERFORMED: Bladder cancer. POSTOPERATIVE DIAGNOSIS: Same. SURGEON: Dr. Riojas. ANESTHESIA: General. PROCEDURE PERFORMED: Cystoscopy, multiple biopsies x4, bladder biopsies with fulguration of large surface area. HISTORY OF PRESENTATION: The patient is a 77-year-old female who presented with bladder cancer, has had bleeding off and on. She had BCG and she returned for cystoscopy in the office and has areas of erythema but no definite papillary tumors. She is here to rule out CIS. DESCRIPTION OF THE PROCEDURE: The patient was taken to the cysto suite. She had been off Coumadin and Lovenox. Her INR was 3 the day before the procedure. She was taken to the operating room where general anesthesia was administered, placed in dorsal lithotomy position and prepped and draped in usual sterile fashion. A 21-Yoruba cystoscope was passed the urethra. Multiple cup biopsies were taken, left lateral, right lateral, the posterior wall and fourth area in the trigone and these areas were sent for biopsy. There was a large surface area approximately 1/5 of the bladder that was fulgurated with light fulguration using a rollerball. The patient bled prior to starting the procedure without any trauma to the bladder just because of bladder is so sensitive it almost looked like she had severe radiation cystitis. At the end of the procedure, there was no evidence of any significant bleeding. The patient was transferred to the recovery room in stable condition. I attest to the content of the Intraoperative Record and any orders documented therein. Any exceptions are noted below. MTDD
[2017-12-03] MEDS ORDERED: PRD20 PO (11:43)
[2017-12-03] MEDS ORDERED: AZIT-57 PO (11:43)
== END 2017-10-26 12:20 | disposition home or self-care (01) ==
LOC: C.ACU 07:06
PROVIDERS: ATTEND Urology
DX: C67.9 Malignant neoplasm of bladder, unspecified (principal); E78.00 Pure hypercholesterolemia, unspecified; I12.9 Hypertensive chronic kidney disease with stage 1 through stage 4 chronic kidney disease, or unspecified chronic kidney disease; J44.9 Chronic obstructive pulmonary disease, unspecified; M19.90 Unspecified osteoarthritis, unspecified site; I25.2 Old myocardial infarction; I25.10 Atherosclerotic heart disease of native coronary artery without angina pectoris; N18.4 Chronic kidney disease, stage 4 (severe); Z87.891 Personal history of nicotine dependence; Z86.711 Personal history of pulmonary embolism; Z96.641 Presence of right artificial hip joint; Z99.81 Dependence on supplemental oxygen; Z86.718 Personal history of other venous thrombosis and embolism

== ENCOUNTER → 2017-11-09 | Outpatient (CLI) | payer OTHER, MEDICARE ==
[~2017-11-09] MED LIST changes: -CIPROFLOXACIN / D5W 400 MG IV SCH; -LACTATED RINGER'S 1000ML 1,000 ML IV SCH; +NITR1CAP33 PO
== END | disposition home or self-care (01) ==
LOC: C.LABSPEC 16:47
PROVIDERS: ATTEND Urology
DX: C67.9 Malignant neoplasm of bladder, unspecified (principal)

== ENCOUNTER 2017-11-15 09:13 | Emergency (ER) | payer OTHER, MEDICARE ==
[~2017-11-15] VITALS: Ht 170.2 cm; Wt 81.6 kg
[2017-11-15 09:16] VITALS: TEMP 36.6; Ht 170.2 cm; Wt 81.6 kg
[2017-11-15 11:07] LABS: BASO % 0.8 %; BASO ABS # 0.04 K/uL (0-0.2); EOS % 5.1 %; EOS ABS # 0.26 K/uL (0-0.5); HEMATOCRIT 38.2 % (37-47); HEMOGLOBIN 12.7 g/dL (12.0-16.0); LYMPH % 22.4 %; LYMPH ABS # 1.14 K/uL (1.2-3.4); MEAN CELL VOLUME 91.8 fL (80-100); MEAN CORPUSCULAR HEMOGLOBIN 30.5 pg (25-34); MEAN CORPUSCULAR HGB CONC 33.2 g/dl (32-36); MEAN PLATELET VOLUME 9.9 fL (7.4-10.4); MONO % 6.9 %; MONO ABS # 0.35 K/uL (0.11-0.59); NEUT % 64.8 %; PLATELET COUNT 228 K/uL (130-400); RED CELL DISTRIBUTION WIDTH CV 13.9 % (11.5-14.5); RED CELL DISTRIBUTION WIDTH SD 46.4 fL (36.4-46.3); WHITE BLOOD COUNT 5.09 K/uL (4.8-10.8)
[2017-11-15 11:19] LABS: INR 2.9 (0.9-1.1); PTT PATIENT 37.8 SECONDS (21.0-31.0)
[2017-11-15 11:25] LABS: CALCIUM 9.3 mg/dl (8.5-10.1); CREATININE 2.09 mg/dl (0.60-1.20); POTASSIUM 3.7 mmol/L (3.5-5.1)
[2017-11-15 12:46] VITALS: BP 158/72; PULSE 76; O2SAT 98
--- NOTE | 2017-11-15 15:45 | EMERGENCY ROOM VISIT NOTE ---
History Report prepared by Alicia: Jeevan Bautista Under the Supervision of: Dr. Jose C Phelan M.D. First contact with patient: 09:38 Chief Complaint: URINARY SYMPTOMS Stated Complaint: BLOOD AND BLOOD CLOTS IN URINE Nursing Triage Summary: pt noticed blood in urine yesterday, passing clots hx of recent bladder cancer pt denies any pain or urinary s/s History of Present Illness The patient is a 77 year old female who presents to the Emergency Room with complaints of intermittent hematuria. She states that she has begun noticing clots in her urine last week, and then again last night. The patient has a previous history of bladder cancer (March 2016). She had BCG treatments, and two surgeries at the time. She is now considered cancer free. The patient had cystoscopy with multiple biopsies a few weeks ago which did not find any new cancer. She denies abdominal pain, fevers, vomiting, chest pain, SOB, or pain with urination. She is on Coumadin for previous PE. She is unaware of any clotting disorders. Source of History: patient Onset: Last week Symptom Intensity: two episodes Quality: other (hematuria) Timing: intermittent Associated Symptoms: No fevers, No chest pain, No SOB, No vomiting, No urinary symptoms (pain with urination) Review of Systems See HPI for pertinent positives & negatives. A total of 10 systems reviewed and were otherwise negative. 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 Family History Hypertension Social History Smoking Status: Former Smoker Alcohol Use: none Drug Use: none Housing Status: lives alone Occupation Status: employed Current/Historical Medications Scheduled Carvedilol (Coreg), 25 MG PO BID Ferrous Sulfate (Kp Ferrous Sulfate), 325 MG PO QAM Fluticasone Furoate-Vilanterol (Breo Ellipta 200-25 Mcg/INH), 1 DOSE INH QAM Furosemide (Lasix), 20 MG PO QAM Simvastatin (Zocor), 40 MG PO HS Tiotropium [place] (Spiriva Respimat), 1 PUFF INH QAM Warfarin Sod (Jantoven), 2 MG PO QPM Scheduled PRN Home O2 Therapy (Oxygen), 2 LITERS NA HS PRN for Shortness of Breath Nystatin (Nystatin Cream), 0 EXT PRN PRN for . Sennosides-Docusate Sodium (Senna S), 1 TAB PO DAILY PRN for PRN Allergies Coded Allergies: Chlorhexidine (Verified Allergy, Unknown, HIVES,RED RASH, 11/15/17) Physical Exam Vital Signs Date Time Temp Pulse Resp B/P (MAP) Pulse Ox O2 Delivery O2 Flow Rate FiO2 11/15/17 12:46 76 16 158/72 98 11/15/17 11:48 58 16 167/82 96 Room Air 11/15/17 09:16 36.6 80 20 148/89 96 Room Air Physical Exam Constitutional: Vital signs reviewed. Eyes: Pupils are equal round reactive to light. Conjunctiva are noninjected. ENT: Pharynx is clear without erythema or exudate. Mucous membranes are moist. Neck supple without meningeal signs. Respiratory: Clear to auscultation bilaterally. Breath sounds are equal bilaterally. Cardiovascular: Regular rate and rhythm. No rubs or gallops. GI: Soft, nondistended and nontender. Bowel sounds are present. Musculoskeletal: No peripheral edema. No CVA tenderness. Integumentary: No cyanosis. Neurological: The patient is awake and alert. No focal deficits. Psychiatric: Normal affect. Medical Decision & Procedures Laboratory Results 11/15/17 10:50 Red Blood Count 4.16, Mean Corpuscular Volume 91.8, Mean Corpuscular Hemoglobin 30.5, Mean Corpuscular Hemoglobin Concent 33.2, Mean Platelet Volume 9.9, Neutrophils (%) (Auto) 64.8, Lymphocytes (%) (Auto) 22.4, Monocytes (%) (Auto) 6.9, Eosinophils (%) (Auto) 5.1, Basophils (%) (Auto) 0.8, Neutrophils # (Auto) 3.30, Lymphocytes # (Auto) 1.14, Monocytes # (Auto) 0.35, Eosinophils # (Auto) 0.26, Basophils # (Auto) 0.04 11/15/17 10:50 Test 11/15/17 09:30 11/15/17 10:50 Urine Color RED Urine Appearance TURBID (CLEAR) Urine pH (4.5-7.5) Urine Specific [place] 1.013 (1.000-1.030) Urine Protein (NEG) Urine Glucose (UA) (NEG) Urine Ketones (NEG) Urine Occult Blood (NEG) Urine Nitrite (NEG) Urine Bilirubin (NEG) Urine Urobilinogen (NEG) Urine Leukocyte Esterase (NEG) Urine RBC >30 /hpf (0-4) Urine WBC 1-5 /hpf (0-5) Urine Epithelial Cells 0-5 /lpf (0-5) Urine Bacteria NEG (NEG) White Blood Count 5.09 K/uL (4.8-10.8) Red Blood Count 4.16 M/uL (4.2-5.4) Hemoglobin 12.7 g/dL (12.0-16.0) Hematocrit 38.2 % (37-47) Mean Corpuscular Volume 91.8 fL (80-100) Mean Corpuscular Hemoglobin 30.5 pg (25-34) Mean Corpuscular Hemoglobin Concent 33.2 g/dl (32-36) Platelet Count 228 K/uL (130-400) Mean Platelet Volume 9.9 fL (7.4-10.4) Neutrophils (%) (Auto) 64.8 % Lymphocytes (%) (Auto) 22.4 % Monocytes (%) (Auto) 6.9 % Eosinophils (%) (Auto) 5.1 % Basophils (%) (Auto) 0.8 % Neutrophils # (Auto) 3.30 K/uL (1.4-6.5) Lymphocytes # (Auto) 1.14 K/uL (1.2-3.4) Monocytes # (Auto) 0.35 K/uL (0.11-0.59) Eosinophils # (Auto) 0.26 K/uL (0-0.5) Basophils # (Auto) 0.04 K/uL (0-0.2) RDW Standard Deviation 46.4 fL (36.4-46.3) RDW Coefficient of Variation 13.9 % (11.5-14.5) Immature Granulocyte % (Auto) 0.0 % Immature Granulocyte # (Auto) 0.00 K/uL (0.00-0.02) Prothrombin Time 30.0 SECONDS (9.0-12.0) Prothromb Time International Ratio 2.9 (0.9-1.1) Activated Partial Thromboplast Time 37.8 SECONDS (21.0-31.0) Partial Thromboplastin Ratio 1.5 Anion Gap 7.0 mmol/L (3-11) Est Creatinine Clear Calc Drug Dose 24.0 ml/min Estimated GFR () 25.5 Estimated GFR (Non- 22.0 BUN/Creatinine Ratio 18.2 (10-20) Calcium Level 9.3 mg/dl (8.5-10.1) Laboratory results as reviewed by me. ED Course 0941: The patient was evaluated in room A4B. A complete history and physical exam was performed. 1135: I discussed the patient's test results with her. 1220: I checked in on the patient. She has urinated, and there was not as much blood as before. Currently awaiting urology consult. 1240: Upon reevaluation, the patient appeared to have improvement of her symptoms. I discussed tonight's findings with her. She verbalized agreement of the treatment plan. The patient was discharged home. Medical Decision This is a 77-year-old female who presents with hematuria. Differential diagnosis includes bladder tumor, cystitis, urinary tract infection, kidney stone, anemia, supratherapeutic INR. I did perform a limited focused review of portions of the patient's old chart on the electronic medical record. The patient underwent cystoscopy with multiple biopsies with Dr. Riojas on October 26, 2017. Biopsy showed chronic active cystitis. I did evaluate the patient as noted above. IV access was established. I did order and personally review the patient's urinalysis as described above. I did order and review the patient's blood work as noted in the electronic medical record. She is not anemic. Her INR is 2.9. Her creatinine is slightly elevated above baseline. I did discuss the test results with the patient. I did reassess her. She states that she urinated and there seemed to be less blood. I did discuss case with Dr. Bowers of urology who recommended that she follow up with Dr. Riojas as an outpatient. He felt that the bleeding may be just secondary to her recent biopsy. I did discuss this with the patient was happy with this plan. She will have her doctor repeat her creatinine on follow up. The patient was discharged in good condition. I did review return instructions with her. Medication Reconcilliation Current Medication List: was personally reviewed by me Blood Pressure Screening Patient's blood pressure: Elevated blood pressure Blood pressure disposition: Referred to PCP Consults Time Called: 1220 Consulting Physician: Dr. Bowers - Urology Returned Call: [address] Bowers of Urology. We discussed the patient and her results. Dr. Bowers feels that the patient's symptoms are likely a result of a scab breaking off since the biopsy. He will follow up with the patient in his office. Impression Primary Impression: Gross hematuria Additional Impressions: Anticoagulated on Coumadin Elevated serum creatinine Scribe Attestation The scribe's documentation has been prepared under my direct and personally reviewed by me in its entirety. I confirm that the note above accurately reflects all work, treatment, procedures, and medical decision making performed by me. Departure Information Dispostion Home / Self-Care Referrals RV. Maddox MD (PCP) Forms HOME CARE DOCUMENTATION FORM, IMPORTANT VISIT INFORMATION Patient Instructions ED Hematuria, My [facility] Additional Instructions You have been examined and treated today on an emergency basis only. This is not a substitute for, or an effort to provide, complete comprehensive medical care. It is impossible to recognize and treat all injuries or illnesses in a single emergency department visit. It is therefore important that you follow up closely with your physician. Call as soon as possible for an appointment. Return for worsening symptoms or if you develop fever, vomiting, abdominal pain , black or tarry stools, rectal bleeding, lightheadedness or any other concerning symptoms. Have your doctor recheck your creatinine which was elevated at 2 today. Problem Qualifiers
== END 2017-11-15 12:47 | disposition home or self-care (01) ==
LOC: C.EDB 09:15 → C.EDA 12:47
DX: R31.0 Gross hematuria (principal); Z79.01 Long term (current) use of anticoagulants; R79.89 Other specified abnormal findings of blood chemistry; I10 Essential (primary) hypertension; J43.9 Emphysema, unspecified; I25.2 Old myocardial infarction; Z85.51 Personal history of malignant neoplasm of bladder; Z86.711 Personal history of pulmonary embolism; Z87.891 Personal history of nicotine dependence; Z96.649 Presence of unspecified artificial hip joint; Z98.890 Other specified postprocedural states; Z82.49 Family history of ischemic heart disease and other diseases of the circulatory system; Z79.899 Other long term (current) drug therapy

== ENCOUNTER → 2017-12-14 | Outpatient (CLI) | payer OTHER, MEDICARE ==
[~2017-12-14] MED LIST changes: +AZIT-57 PO; -ENOX30IN4 SQ; -NITR1CAP33 PO; +PRD20 PO; -TRAM-10 PO
[2017-12-14 15:01] LABS: BASO % 0.1 %; BASO ABS # 0.01 K/uL (0-0.2); EOS % 1.6 %; EOS ABS # 0.14 K/uL (0-0.5); HEMATOCRIT 37.1 % (37-47); HEMOGLOBIN 12.3 g/dL (12.0-16.0); IG# 0.06 K/uL (0.00-0.02); LYMPH % 11.3 %; LYMPH ABS # 0.96 K/uL (1.2-3.4); MEAN CELL VOLUME 90.7 fL (80-100); MEAN CORPUSCULAR HEMOGLOBIN 30.1 pg (25-34); MEAN CORPUSCULAR HGB CONC 33.2 g/dl (32-36); MEAN PLATELET VOLUME 9.9 fL (7.4-10.4); MONO % 7.1 %; NEUT % 79.2 %; NEUT ABS # 6.72 K/uL (1.4-6.5); PLATELET COUNT 308 K/uL (130-400); RED CELL DISTRIBUTION WIDTH CV 14.4 % (11.5-14.5); RED CELL DISTRIBUTION WIDTH SD 47.9 fL (36.4-46.3); WHITE BLOOD COUNT 8.49 K/uL (4.8-10.8)
[2017-12-14 15:15] LABS: BLOOD UREA NITROGEN 40 mg/dl (7-18); CARBON DIOXIDE 30 mmol/L (21-32); GLUCOSE 120 mg/dl (70-99); POTASSIUM 3.6 mmol/L (3.5-5.1); SODIUM 137 mmol/L (136-145)
== END | disposition home or self-care (01) ==
LOC: C.LAB1850 12:12
PROVIDERS: ATTEND Internal Medicine
DX: D64.9 Anemia, unspecified (principal); N18.4 Chronic kidney disease, stage 4 (severe)

== ENCOUNTER → 2017-12-21 | Outpatient (CLI) | payer OTHER, MEDICARE | END | disposition home or self-care (01) | LOC: C.LAB1850 11:00 | PROVIDERS: ATTEND Internal Medicine | DX: Z79.01 Long term (current) use of anticoagulants (principal) ==

== ENCOUNTER → 2018-03-06 | Outpatient (CLI) | payer OTHER, MEDICARE | END | disposition home or self-care (01) | LOC: C.PATHSPEC 17:27 | PROVIDERS: ATTEND Urology | DX: R31.9 Hematuria, unspecified (principal) ==

== ENCOUNTER → 2018-06-14 | Outpatient (CLI) | payer OTHER, MEDICARE ==
[2018-06-14 08:19] LABS: INR 3.1 (0.9-1.1)
== END | disposition home or self-care (01) ==
LOC: C.LAB1850 07:51
PROVIDERS: ATTEND Internal Medicine
DX: Z79.01 Long term (current) use of anticoagulants (principal)

== ENCOUNTER 2019-04-03 10:06 | Inpatient (IN) ==
--- NOTE | 2019-03-28 09:16 | Anesthesiology Consultation ---
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 Patient stable from CV standpoint.. appears well-perfused with no signs of heart failure or new significant PVD." F/U 1 year recommended. - Check coags AM DOS Chart Review Chart Review: Acceptable Risk for Surgery (pending clinical evaluation AM DOS and preop testing) History Surgery Operation Date: 04/03/19 11:30 Proposed Procedures p Navigational Bronchoscopy with ICG Markers, - Russ Roper MD, FACS s Robotic Right Video Assisted Thoracoscopy with Right Lower Lobe Wedge Resection, Possible Right Lower Lobectomy with Mediastinal Lymphadenectomy - Russ Roper MD, FACS Height/Weight Height: 5 ft 7 in Weight: 78.471 kg Allergies Allergy/AdvReac Type Severity Reaction Status Date / Time chlorhexidine Allergy Unknown HIVES,RED Verified 03/19/19 13:20 RASH Medications Home Medications Medication Instructions Recorded Confirmed Last Taken Breo Ellipta 1 inh INHALATION DAILY 12/23/18 03/19/19 02/20/19 07:00 carvedilol 25 mg PO BID 12/23/18 03/19/19 02/21/19 04:30 ferrous sulfate 325 mg PO DAILY 12/23/18 03/19/19 02/20/19 08:00 furosemide 20 mg PO QAM 12/23/18 03/19/19 02/20/19 08:00 hydralazine 50 mg PO BID 12/23/18 03/19/19 02/21/19 04:30 sennosides-docusate sodium 1 tab PO HS PRN 12/23/18 03/19/19 Unknown [Senna-S] simvastatin 40 mg PO HS 12/23/18 03/19/19 02/20/19 21:30 warfarin 1 mg PO WK 12/23/18 03/19/19 02/16/19 18:00 warfarin 2 mg PO 6XWK 12/23/18 03/19/19 02/16/19 18:00 ergocalciferol (vitamin D2) 50,000 50,000 unit PO MONTHLY #3 cap 02/27/19 03/19/19 Unknown unit capsule tiotropium bromide 2.5 2 puffs INHALATION ONCE #2 gm 02/27/19 03/19/19 Unknown mcg/actuation mist for inhalation Oxygen Home #1 ea 03/19/19 02/27/19 Unknown Past Medical History Medical History Sacroiliitis Hematuria Anemia Cardiomyopathy Coronary artery disease NON-OBSRTUCTIVE Lung nodule Mitral regurgitation Nocturnal hypoxemia 2L AT HS 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 Takotsubo syndrome 2016 CKD (chronic kidney disease) BASELINE CREATININE 1.6-1.8 PER CHART REVIEW COPD (chronic obstructive pulmonary disease) History of SD (myocardial infarction) 2016= MEDICALLY MANAGED History of abdominal aortic aneurysm (AAA) S/P REPAIR 2016 Multinodular goiter Hyperlipidemia Hypertension Osteoarthritis Pulmonary embolism RECURRENT (~2012) ON COUMADIN Past Family History Family History Other Dyslipidemia Past Surgical History Surgical History 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) AAA (abdominal aortic aneurysm) S/P REPAIR 2016 History of bladder surgery TURBT History of bronchoscopy EBUS, Navigational bronch with biopsy: 02/21/19: Grade 2 view, MAC 3, ETT 8.5 History of tooth extraction Social History Smoking Status: Former smoker Do You Dip or Chew Tobacco: No Smoking End Date: 2007 Hx Alcohol Use: No Hx Substance Use: No substance use type: does not use Testing Laboratory Results 03/20/19 WBC 4.1 H/H 11.8/36.2 PLATELETS 198 03/27/19 PT 21.9 INR 2.3 Electrocardiogram Date: 12/23/18 ST @ 102bpm. *Poor data quality* Chest X-Ray Date: 02/21/19 Asymmetric right hilar prominence is noted. The previously described nodule of the superior segment right lower lobe is better seen on comparison study. Mild interstitial coarsening about the mid and lower lung zones. Mild emphysema. The re is a 3.5 cm linear radiodensity noted about the right infrahilar distribution which is indeterminate and may be external to the patient. Echocardiogram Date: 02/22/18 EF 55-60%. No RWMA. Mild to moderate eccentric MR. Grade I DD. No significant changes compared to 12/2015 study. Mild cLVH. Cardiac Catheterization Date: 12/22/15 RCA distal 80%; LAD diffuse mild luminal irregularities. Pulmonary Function Test Date: 03/12/19 FVC 68% of predicted FEV1 52% of predicted FEF 25-75 28% of predicted. There was no improvement after inhaled bronchodilator. DLCO was severely reduced at 46% of predicted. Moderately severe obstructive airways disease with severe reduction in DLCO consistent with the clinical diagnosis of chronic obstructive pulmonary disease. Other Testing CT Chest: 01/28/19: Enlarged multinodular goiter. No adenopathy by CT size criteria. Trace pericardial effusion. Coronary arterial calcifications are noted. Extensive calcification the thoracic aorta without aneurysm. Biapical pleural-parenchymal scarring with mild to moderate emphysema. No overt pulmonary edema. Mild bilateral bronchial wall thickening. Lobular irregular mass with spiculated margins is noted about the superior segment right lower lobe measuring 3.0 x 1.7 x 1.9 cm. Minimal ground glass density seen distal to this l esion may reflect some minimal postobstructive pneumonitis changes.
[~2019-04-03 10:06] MED LIST changes: -AZIT-57 PO; -CARV25TA2 PO; -FERR1TAB13 PO; -FLUT1INH7 INH; -FURO-85 PO; -NYSCR30 EXT; -OXGN; -PRD20 PO; -SENN-91 PO; -SIMV40TA2 PO; -TIOT1SPR INH; -WARF2TAB8 PO; +fentaNYL citrate 100 MCG/2 ML VIAL ONE
[2019-04-03 11:04] LABS: Partial Thromboplastin Ratio 0.9; Partial Thromboplastin Time 25.1 Seconds (21.0-31.0); Prothrombin Time 10.4 Seconds (9.0-12.0)
[2019-04-03 11:08] LABS: BUN Creatinine Ratio 22.4 (10-20); Creatinine Clr Calc Pharmacy 32.9 ml/min; Est GFR (African American) 37.7; Est GFR (Non-African American) 32.6; Potassium 3.9 mmol/L (3.5-5.1)
--- NOTE | 2019-04-03 11:31 | History & Physical Bridge Note ---
Date of Service April 03, 2019 History & Physical Bridge Note I have examined the patient, reviewed the History & Physical and in the interval since the performance of the History & Physical I have noted the following changes of clinical significance: no changes noted
[2019-04-03] MEDS ORDERED: LACTATED RINGER'S 1,000 ML IV SCH (11:45)
[2019-04-03] MEDS ORDERED: BUPIVACAINE LIPOSOME 1.3% 266 MG/20 ML VIAL ONE (11:57)
[2019-04-03] MEDS ORDERED: BUPIVACAINE 0.5 % 5 MG/1 ML MPF 30ML VIAL ONE (11:57)
[2019-04-03] MEDS ORDERED: SODIUM CHLORIDE 0.9% PF 50 ML VIAL ONE (11:57)
[2019-04-03] MEDS ORDERED: INDOCYANINE GREEN 25 MG/10 ML INJ ONE (12:20)
[2019-04-03] MEDS ORDERED: ONDANSETRON INJ 2 MG/ML 2 ML VIAL IV PRN ×2 (12:50→19:11)
[2019-04-03] MEDS ORDERED: ATROPINE SULFATE 0.1 MG/ML 10ML SYR IV PRN (12:50)
[2019-04-03] MEDS ORDERED: ePHEDrine sulfate 50 MG/ML AMP IV PRN (12:50)
[2019-04-03] MEDS ORDERED: CLINDAMYCIN PHOS 300 MG/2 ML VIAL ONE (12:56)
--- NOTE | 2019-04-03 13:35 | Fluoroscopy Report ---
FL chest 1V frontal CLINICAL HISTORY: NAVIGATIONAL BRONCH IN OR COMPARISON STUDY: Chest CT 01/28/2019. FLUOROSCOPY TIME: 39 seconds. FINDINGS: Single fluoroscopic spot image of the right chest. Bronchoscopy is identified within the ri ght mainstem bronchus with the tip extending to the right lower lobe. IMPRESSION: Fluoroscopy provided for bronchoscopy. Electronically signed by: Lopez Lee M.D. 04/03/2019 1:34 PM
[2019-04-03] MEDS ORDERED: PROPOFOL IV EMULSION 10 MG/ML 20 ML VIAL IV ONE (13:48)
[2019-04-03] MEDS ORDERED: DEXAMETHASONE SOD INJ 4 MG/ML VIAL ONE (13:48)
[2019-04-03] MEDS ORDERED: NEOSTIGMINE METHYLSULFATE 5 MG/5 ML SYR ONE (13:48)
[2019-04-03] MEDS ORDERED: GLYCOPYRROLATE 0.2 MG/ML VIAL ONE (13:48)
[2019-04-03] MEDS ORDERED: ROCURONIUM BROMIDE 10 MG/ML 5 ML VIAL ONE (13:48)
[2019-04-03] MEDS ORDERED: ONDANSETRON INJ 2 MG/ML 2 ML VIAL ONE (13:48)
[2019-04-03] MEDS ORDERED: LIDOCAINE HCL 2% 2 ML VIAL/AMP(20MG/ML) INFIL ONE (13:48)
[2019-04-03] MEDS ORDERED: ePHEDrine sulfate 50 MG/ML SYR ONE (13:57)
[2019-04-03] MEDS ORDERED: PHENYLEPHRINE 100MCG/ML 5ML SYR ONE (13:57)
[2019-04-03] MEDS ORDERED: PHENYLEPHRINE HCL 10 MG/ML VIAL ONE (14:01)
[2019-04-03] MEDS ORDERED: SURGICEL ABSORB HEMOSTAT 2IN X 14IN TOP ONE ×2 (14:16→15:36)
[2019-04-03 15:34] LABS: INR 1.1 (0.9-1.1); Prothrombin Time 11.4 Seconds (9.0-12.0)
[2019-04-03 15:39] LABS: Hematocrit (blood only) 30.4 % (37-47); Hemoglobin 10.1 g/dL (12.0-16.0); Mean Corpuscular Volume 91.8 fL (80-100); Mean Platelet Volume 9.4 fL (7.4-10.4); Platelet Count 153 K/uL (130-400); RDW Coefficient of Variation 14.3 % (11.5-14.5); RDW Standard Deviation 48.9 fL (36.4-46.3); Red Blood Count 3.31 M/uL (4.2-5.4); White Blood Count 3.98 K/uL (4.8-10.8)
[2019-04-03 15:41] LABS: Mean Corpuscular Hgb Conc 33.2 g/dL (32-36)
[2019-04-03 15:47] LABS: Platelet Function Test COL EPI 255 Seconds (80-184)
[2019-04-03] MEDS ORDERED: PROGEL PLEURAL AIR LEAK SEALAN 4ML TOP ONE (15:56)
[2019-04-03 16:23] LABS: Platelet Function Test COL ADP 151 Seconds (56-102)
--- NOTE | 2019-04-03 16:36 | Post Operative Brief Note ---
Immediate Post Op Note v1 Date of Surgery April 03, 2019 Pre & Post Diagnosis Operation Date: 04/03/19 11:30 Pre-Op Diagnosis: Right Lower Lobe Lung Mass Post-Op Diagnosis: Right Lower Lobe Squamous cell carcinoma Procedure Operation Date: 04/03/19 11:30 Actual Procedures p Navigational Bronchoscopy with Indocyanine green Markers(Not Applicable) - Russ Roper MD, FACS s Robotic Right Video Assisted Thoracoscopy with Right Lower Lobe Wedge Resection, Right Lower Lobectomy with Mediastinal Lymphadenectomy(Right) - Dinesh Roper MD, FACS Surgeon Russ Roper MD, FACS Habilitation Training Specialist Mukul ULRICH Estimated Blood Loss 250 Findings Consistent with Post-Op Diagnosis Drains Chest Tube (24f Thal) and Langston Catheter (16 Amharic Langston catheter inserted by Maida Winslow RN without difficulty. clear yellow urine obtained- Anesthesia to monitor. Per Dr. Roper- Langston to be d/c at end of case.)
[2019-04-03] MEDS ORDERED: METOCLOPRAMIDE HCL INJ 5 MG/ML 2 ML VIAL IV ONE (17:00)
[2019-04-03] MEDS ORDERED: SUGAMMADEX SODIUM 200 MG/2 ML VIAL IV ONE ×2 (17:06→17:11)
--- NOTE | 2019-04-03 17:37 | XRay Report ---
SINGLE VIEW CHEST CLINICAL HISTORY: Status post right lower lobe surgery. FINDINGS: An AP, portable, upright chest radiograph is compared to study dated 02/21/2019 and correlat ed with chest CT dated 01/28/2019. The examination is degraded by portable technique and patient rotati on. The heart is top normal for projection, noting atherosclerotic calcification of the thoracic aor ta. Emphysema and chronic interstitial thickening are similar to previous. There is postoperative mike nge involving loss from right lower lobe resection. A chest tube is seen in the right apex. Airspace consolidation and pleural fluid is noted at the right lung base. There is likely trace right basilar pneumothorax. The skeletal structures are osteopenic. Degenerative changes noted throughout the thora cic spine. Subcutaneous emphysema is seen along the right chest wall. IMPRESSION: 1. There are postoperative changes and volume loss from right lower lobe resection. 2. A chest tube is seen at the right apex. There is likely trace right basilar pneumothorax. 3. Consolidation and pleural fluid are seen at the right lung base. 4. Emphysema. Electronically signed by: Pradeep Avina M.D. 04/03/2019 5:36 PM
[2019-04-03] MEDS ORDERED: ALBUT/IPRATROP 3MG/0.5MG NEB 3 ML VIAL INH STA (17:41)
[2019-04-03] MEDS ORDERED: fentaNYL citrate 100 MCG/2 ML VIAL ONE (17:56)
[2019-04-03] MEDS: fentaNYL citrate 100 MCG/2 ML VIAL IV PRN ×2 (18:00→18:10)
--- NOTE | 2019-04-03 18:43 | Anesthesiology Progress Note ---
Date of Service April 03, 2019 Anesthesia Post Procedure Vital Signs Vital Signs: Temp Pulse Pulse Resp BP Pulse Ox 04/03/19 18:25 71 16 113/51 L 98 04/03/19 18:15 68 17 117/61 98 04/03/19 18:05 70 21 120/66 100 04/03/19 17:55 75 17 139/84 100 04/03/19 17:47 70 22 100 04/03/19 17:45 68 20 153/97 H 99 04/03/19 17:35 71 18 111/79 99 04/03/19 17:25 36 C L 70 21 133/79 100 04/03/19 11:03 36.6 C 82 20 156/76 H 96 Pain Intensity Right Chest: Pain Intensity: 4 Transfer of Care Handoff Completed per policy Notes Mental Status: alert / awake / arousable and participated in evaluation Patient Amnestic to Procedure: Yes Nausea / Vomiting: adequately controlled Pain: adequately controlled Airway Patency, RR, SpO2: stable & adequate BP & HR: stable & adequate Hydration State: stable & adequate Anesthetic Complications: no major complications apparent and Pt Satisfied with anesthetic care Notes: Initially short of breath in PACU, but significantly improved after duoneb. Contiuous pulse oximetry ordering for on the floor.
[2019-04-03] MEDS ORDERED: ALBUTEROL HFA 8 GM INHALER INH PRN (19:11)
[2019-04-03] MEDS: D5W AND 1/2NSS 1,000 ML IV SCH (20:30)
[2019-04-03] MEDS: SIMVASTATIN 40 MG TAB PO SCH (21:05)
[2019-04-03] MEDS: CARVEDILOL 25 MG TAB PO SCH (21:06)
[2019-04-03] MEDS: DOCUSATE SODIUM 100 MG CAP PO SCH (21:07)
[2019-04-03] MEDS: HydrALAZINE TAB 50 MG TAB PO SCH (22:02)
[2019-04-03] MEDS: ACETAMINOPHEN 1,000 MG/100 ML VIAL IV SCH (22:02)
[2019-04-03] MEDS: OXYCODONE HCL IR 5 MG TAB (IMMEDIATE RELEASE) PO PRN (22:28)
--- NOTE | 2019-04-04 01:25 | Operative Report ---
DATE OF OPERATION: 04/03/2019 DATE OF PROCEDURE: 04/03/2019 PREOPERATIVE DIAGNOSIS: Hypermetabolic mass, right lower lobe. POSTOPERATIVE DIAGNOSIS: Squamous cell carcinoma, right lower lobe. PROCEDURE: 1. Electromagnetic navigational bronchoscopy with marking of right lower lobe lesion with indocyanine green dye. 2. Robot-assisted thoracoscopic wedge resection with frozen section. 3. Robot-assisted thoracoscopic right lower lobectomy. 4. Robot-assisted thoracoscopic mediastinal lymphadenectomy. SURGEON: Russ Roper MD FOXER: SERG Brown (MrCooper Zahida was present for the entire case and was at the patient's bedside while I was at the console and closed incisions at the conclusion). ANESTHESIA: General anesthesia with endotracheal intubation with a double lumen tube. INDICATION FOR PROCEDURE AND FINDINGS: Amanda Link is an 78-year-old female who has some medical problems; however, despite the fact that an electromagnetic navigational bronchoscopy and endobronchial ultrasound showed us not to have evidence of malignancy, I was quite convinced that this was going to be the case. On 04/03/2019, I took the patient to the operating room and did an uncomplicated electromagnetic navigational bronchoscopy with marking with indocyanine dye. I then placed my robotic ports and the scope and saw with this area lit up nicely. I did a wedge resection and turns out this was an squamous cell carcinoma. Interestingly enough, there may have been 2 nodules, although we did not see this. The first nodule which I could palpate in our specimen was sent off and came back as squamous cell carcinoma; however, it was only a bit more than a centimeter in diameter. After taking the lobe, there was a larger mass deeper to this. The pathology on this is pending. Our margins were negative. She tolerated it well. The only abnormality of this case was the fact that the patient appeared to be oozing from her lung and her chest wall. The slightest trauma resulted in a constant ooze of blood despite aggressive attempts controlling this with cautery and with the Aquamantys. At any rate, she did very well, was extubated in the room. She is quite pleased with her x-ray after the surgery. DESCRIPTION OF PROCEDURE: The patient was brought to the operating room and laid in supine position. General anesthesia induced. Endotracheal intubation performed with single lumen tube. The fiberoptic bronchoscope was placed and then the superDimension navigational probe was placed and registered the airways. I then went out into the right lower lobe without difficulty and using 1 mL of dye with 1 mL of air injected this into the mass. We could see on our ultrasound that we were right at the mass. After the injection, we removed the scope. I closely viewed the airways and I saw no abnormalities out to the tertiary bronchi, which is not surprising as I performed a bronchoscopy recently on her. The scope was then removed. The patient was then changed to a double lumen tube and appropriate monitoring lines placed. She was then placed in a left lateral decubitus position and the second portion of her case began. The patient in left lateral decubitus position, after prepped and draped in usual sterile fashion, calling another time out and she was prepared for surgery. She had received prophylactic antibiotics before her navigational bronchoscopy which was less than an hour before our incision. I made a 5 mm incision for a port at approximately the eighth interspace just anterior to the mid axillary line. Upon entering the chest, it could be seen that we had no adhesions. We then insufflated CO2 and we could see quite nicely. Unfortunately, she did not have complete fissures. A 8 mm port was placed anterior to the camera port and then another 8 mm port was placed posterior and then a 5 mm port was placed posterior very close, only 3 cm or so from the spinous processes. An assistance port was placed just above the diaphragm anteriorly. Each of these ports had been injected with an Exparel solution. We mixed 266 mg of Exparel with 30 mL of 0.5% bupivacaine and 250 mL of normal saline injected each of the ports. Upon entering the chest cavity, we then injected from the 2nd through 11th rib into the intercostal space under direct vision. Attention was then turned towards the right lower lobe. Upon positioning this, we then used the fluorescence on the da IPL[employer]ic robot camera and we could see the area very nicely with the fluorescent camera. This area was then grasped and we did a generous wedge. I could feel a mass in this, although did not feel to be 2.5 cm. At any rate, we sent this off for frozen section. While waiting for the frozen section, I took down the inferior pulmonary ligament, biopsied level 9 node. I had biopsied the level 8 and level 7 nodes. Coming up, I took the level 10 node as well as a level 11 node between the upper lobe and bronchus intermedius. I then took out level 2 and 4 nodes. Coming back anteriorly, I took another 10 node out anteriorly and then freed up the vein. Frozen section came back as a squamous cell carcinoma. We then proceeded with our case. I initially cleaned off the inferior pulmonary vein quite nicely and got around this, but I did not take this initially. I then went anterior and developed the fissure and completed this with a stapler and could see the artery and vein nicely, although the lymph nodes were quite stuck to it. I meticulously took this down, I was quite happy with the appearance of this anteriorly. I then went back posteriorly and cleaned off the area quite nicely and then fired an Endo-AMELIA stapler to separate the posterior fissure. This freed up things quite nicely and I then went between the bronchus and the artery and identified the middle lobe artery and just distal to this on the continuation of pulmonary artery and fired an Endo-AMELIA stapler. This freed up things quite nicely and I then was able to easily get a stapler around the lower lobe bronchus distal to the takeoff of the middle lobe bronchus. We then fired the stapler and then all we had left was the vein which was taken with an Endo-AMELIA stapler. Quite pleased with the dissection. Frozen section of the bronchial margin showed no evidence of malignancy. We then put this in an Endobag and removed it. I inflated the lung and checked for leaking. We could see there was 1 small area which was near the fissure. This was not amenable to stapling or to suturing, it was rather flat. For this reason, we prepared ProGel and thawed it out and sprayed this on the area of leaking. We allowed this to sit. We then meticulously controlled bleeding. It should be noted that this patient bled just from retracting the lung or the chest wall. I am a bit concerned about, although we only lost about 250 mL of blood. We did not get any bleeding otherwise. I used an Aquamantys rather liberally along the chest wall and inspected each of our port sites. It should be noted we had opened our systems port, but the Endobag to remove the lobe. We also used an Endobag to remove the specimen earlier for the frozen section. The lung inflated nicely otherwise. We placed a chest tube through the camera port directed towards the apex and sutured in place with heavy silk suture. A 0 Vicryl on a V-Loc suture was used to close the muscle layer, phlebotomist medical lab assistant's port and the 8 mm ports. 4-0 Monocryl was used in running subcuticular fashion to approximate the wound edges. The patient was extubated in the room. Her x-ray looked quite good afterwards. She really did not have much of an air leak. I attest to the content of the Intraoperative Record and any orders documented therein. Any exception s are noted below.
[2019-04-04] MEDS: MoRPHine SULFATE 2 MG/ML CARP IV PRN ×2 (02:53→21:14)
[2019-04-04] MEDS: D5W AND 1/2NSS 1,000 ML IV SCH (05:36)
[2019-04-04] MEDS: ACETAMINOPHEN 1,000 MG/100 ML VIAL IV SCH (05:42)
[2019-04-04] MEDS: METOCLOPRAMIDE HCL INJ 5 MG/ML 2 ML VIAL IV SCH ×2 (05:43→14:19)
[2019-04-04 06:10] LABS: Hematocrit (blood only) 31.3 % (37-47); Hemoglobin 10.1 g/dL (12.0-16.0); Immature Granulocytes # (auto) 0.01 K/uL (0.00-0.02); Immature Granulocytes % (auto) 0.1 %; Lymphocytes # (auto) 0.42 K/uL (1.2-3.4); Lymphocytes % (auto) 6.1 %; Mean Corpuscular Volume 92.1 fL (80-100); Mean Platelet Volume 9.3 fL (7.4-10.4); Monocytes # (auto) 0.39 K/uL (0.11-0.59); Monocytes % (auto) 5.7 %; Neutrophils # (auto) 6.02 K/uL (1.4-6.5); Neutrophils % (auto) 88.1 %; Platelet Count 158 K/uL (130-400); RDW Coefficient of Variation 14.6 % (11.5-14.5); RDW Standard Deviation 49.9 fL (36.4-46.3); White Blood Count 6.84 K/uL (4.8-10.8)
[2019-04-04 06:13] LABS: Mean Corpuscular Hgb Conc 32.3 g/dL (32-36)
[2019-04-04 06:33] LABS: BUN Creatinine Ratio 22.9 (10-20); Calcium 8.4 mg/dl (8.5-10.1); Creatinine Clr Calc Pharmacy 31.8 ml/min; Est GFR (African American) 36.3; Est GFR (Non-African American) 31.3; Potassium 4.8 mmol/L (3.5-5.1)
--- NOTE | 2019-04-04 07:46 | XRay Report ---
XR chest 1V portable CLINICAL HISTORY: RLL COMPARISON STUDY: Chest radiograph April 03, 2019 at 5:27 PM. FINDINGS: A right chest tube is in place. A small right pneumothorax is noted. Superior pleural separ ation measures 1.1 cm. The superior component has increased prior exam. A basilar component is noted as well. This is either unchanged or slightly decreased since prior exam. Cardiac mediastinal silhoue tte is stable. Mild right basilar opacity has improved. IMPRESSION: Right chest tube in place. Small right pneumothorax, likely slightly increased since dayna or exam. Electronically signed by: Gerardo Pires M.D. 04/04/2019 7:44 AM
[2019-04-04] MEDS ORDERED: TIOTROPIUM BROMIDE 5 PUFF/90 MCG INH INH SCH (09:00)
[2019-04-04] MEDS: ENOXAPARIN INJ 40 MG/0.4 ML SYR SQ SCH (09:17)
[2019-04-04] MEDS: CARVEDILOL 25 MG TAB PO SCH ×2 (09:17→20:33)
[2019-04-04] MEDS: DOCUSATE SODIUM 100 MG CAP PO SCH ×2 (09:17→20:33)
[2019-04-04] MEDS: HydrALAZINE TAB 50 MG TAB PO SCH ×2 (09:18→20:33)
[2019-04-04] MEDS: FLUTICASONE INH SCH (09:21)
[2019-04-04] MEDS: VILANTEROL INH SCH (09:21)
--- NOTE | 2019-04-04 10:30 | Anesthesiology Progress Note ---
Date of Service April 04, 2019 Anesthesia Post Procedure Vital Signs Vital Signs: Temp Pulse Pulse Pulse Resp BP Pulse Ox 04/04/19 08:13 04/04/19 06:54 36.4 C L 74 14 115/65 97 04/04/19 04:55 36.4 C L 80 14 116/69 97 04/04/19 02:55 36.7 C 87 14 124/74 97 04/04/19 00:57 36.5 C 82 14 106/64 97 04/03/19 22:52 36.4 C L 75 16 96/62 L 98 04/03/19 22:30 90 04/03/19 21:55 36.3 C L 80 16 116/72 99 04/03/19 20:55 36.2 C L 74 14 116/72 99 04/03/19 20:51 36.3 C L 04/03/19 20:25 34.8 C L 04/03/19 20:00 34.8 C L 71 16 129/75 100 04/03/19 19:24 34.8 C L 68 16 124/76 100 04/03/19 18:55 36.2 C L 71 14 129/72 100 04/03/19 18:35 72 20 110/62 98 04/03/19 18:25 71 16 113/51 L 98 04/03/19 18:15 36.1 C L 68 17 117/61 98 04/03/19 18:05 70 21 120/66 100 04/03/19 17:55 75 17 139/84 100 04/03/19 17:47 70 22 100 04/03/19 17:45 68 20 153/97 H 99 04/03/19 17:35 71 18 111/79 99 04/03/19 17:25 36 C L 70 21 133/79 100 04/03/19 11:03 36.6 C 82 20 156/76 H 96 Pulse Ox 04/04/19 08:13 92 04/04/19 06:54 04/04/19 04:55 04/04/19 02:55 04/04/19 00:57 04/03/19 22:52 04/03/19 22:30 04/03/19 21:55 04/03/19 20:55 04/03/19 20:51 04/03/19 20:25 04/03/19 20:00 04/03/19 19:24 04/03/19 18:55 04/03/19 18:35 04/03/19 18:25 04/03/19 18:15 04/03/19 18:05 04/03/19 17:55 04/03/19 17:47 04/03/19 17:45 04/03/19 17:35 04/03/19 17:25 04/03/19 11:03 Notes Mental Status: alert / awake / arousable and participated in evaluation Nausea / Vomiting: adequately controlled Pain: adequately controlled Airway Patency, RR, SpO2: stable & adequate BP & HR: stable & adequate Hydration State: stable & adequate
[2019-04-04] MEDS: OXYCODONE HCL IR 5 MG TAB (IMMEDIATE RELEASE) PO PRN ×2 (11:12→20:18)
[2019-04-04] MEDS: ACETAMINOPHEN 325 MG TAB PO SCH ×3 (11:14→23:42)
--- NOTE | 2019-04-04 12:40 | Progress Note ---
DATE: 04/04/2019 SUBJECTIVE: Ms. Link was seen today 1 day after a robot-assisted thoracoscopic right lower lobectomy for a squamous cell carcinoma. She did well overnight. She is on room air this morning. 94% saturation. OBJECTIVE: Her vital signs are stable. Her temperature was a little low when she first got back, but this has increased and it is 36.4 this morning. She has good pain relief. She is moving air well. She has a small air leak. She drained about 250 mL from her chest tube thus far and has a small leak with coughing. She has made appropriate urine. LABORATORY DATA: Today, her white count is 6840, hemoglobin is 10.1 which is comparable. I was very pleased with her x-ray. ASSESSMENT AND PLAN: Postoperative day #1, status post robot-assisted thoracoscopic right lower lobectomy and mediastinal lymphadenectomy. I am quite pleased with her progress and she has been up walking in the hallway.
[2019-04-04] MEDS: SIMVASTATIN 40 MG TAB PO SCH (20:33)
[2019-04-05] MEDS: ACETAMINOPHEN 325 MG TAB PO SCH ×3 (04:59→17:16)
--- NOTE | 2019-04-05 07:34 | XRay Report ---
SINGLE VIEW CHEST CLINICAL HISTORY: Status post right lower lobe surgery. Pneumothorax. FINDINGS: An AP, portable, upright chest radiograph is compared to study dated 04/04/2019 and correlate d with chest CT dated 01/28/2019. The examination is degraded by portable technique and patient rotatio n. The heart is top normal for projection, noting atherosclerotic calcification of the thoracic aort a. Emphysema and chronic interstitial thickening are similar to previous. Again seen are postoperativ e changes and volume loss from right lower lobe resection. A right-sided chest tube is unchanged in p osition. Airspace consolidation and pleural fluid are again noted at the right lung base. Trace right basilar pneumothorax persistent. There is trace left pleural effusion. The skeletal structures are o steopenic. Degenerative change is noted throughout the thoracic spine. Subcutaneous emphysema is seen along the right chest wall. IMPRESSION: 1. Again seen are postoperative changes and volume loss from right lower lobe resection. 2. A right-sided chest tube is unchanged in position. Trace right basilar pneumothorax persists. 3. Consolidation and pleural fluid are seen at the right lung base. 4. Emphysema. 5. There is trace left pleural effusion. Electronically signed by: Pradeep Avina M.D. 04/05/2019 7:32 AM
[2019-04-05] MEDS: MoRPHine SULFATE 2 MG/ML CARP IV PRN (08:15)
[2019-04-05] MEDS: CARVEDILOL 25 MG TAB PO SCH ×2 (08:20→21:52)
[2019-04-05] MEDS: DOCUSATE SODIUM 100 MG CAP PO SCH ×2 (08:20→21:50)
[2019-04-05] MEDS: HydrALAZINE TAB 50 MG TAB PO SCH ×2 (08:20→21:52)
[2019-04-05] MEDS: ENOXAPARIN INJ 40 MG/0.4 ML SYR SQ SCH (08:21)
[2019-04-05] MEDS: TIOTROPIUM BROMIDE 5 PUFF/90 MCG INH INH SCH ×2 (08:22→21:46)
[2019-04-05] MEDS: VILANTEROL INH SCH (08:23)
[2019-04-05] MEDS: FLUTICASONE INH SCH (08:23)
[2019-04-05] MEDS: OXYCODONE HCL IR 5 MG TAB (IMMEDIATE RELEASE) PO PRN (17:16)
--- NOTE | 2019-04-05 17:33 | Progress Note ---
DATE: 04/05/2019 The patient is seen today. She is on 3 liters of O2 at 100% saturations and turning this down. She is moving air well. Her x-ray looks quite good today. She is complaining of some pain and states that she had significant pain last night. She does not have an air leak. She did drain about 190 mL over day shift. At this point, I am going to remove her chest tube in the morning and send her out in all probability. I had a long talk with the patient and daughter at the bedside today. I reviewed the pathology and I am quite happy to report that the patient is a stage I squamous cell carcinoma. She has very interesting pathology findings as she actually had 2 different cancers. They were both squamous cell, but they appear to be different. They are both stage I. Fourteen lymph nodes were negative for metastatic disease. ASSESSMENT AND PLAN: Postop day number 2 status post robot-assisted thoracoscopic right lower lobectomy with mediastinal lymphadenectomy. We will tentatively plan to remove her chest tube and discharge her in the morning.
[2019-04-05] MEDS: SIMVASTATIN 40 MG TAB PO SCH (21:50)
[2019-04-06] MEDS: ACETAMINOPHEN 325 MG TAB PO SCH ×4 (00:57→17:10)
[2019-04-06] MEDS: MoRPHine SULFATE 2 MG/ML CARP IV PRN ×2 (02:54→07:54)
--- NOTE | 2019-04-06 08:17 | XRay Report ---
XR chest 1V portable CLINICAL HISTORY: 78 years-old Female presenting with chest tube removal. TECHNIQUE: Portable upright AP view of the chest was obtained. COMPARISON: 04/05/2019. FINDINGS: Status post removal of the large bore right pleural drain. Rightward mediastinal shift unchanged. Ath erosclerosis of the aortic arch. Cardiac silhouette top normal in size. Low lung volume on the right unchanged. Blunting of the right costophrenic angle, likely postsurgical change. Minimal basilar opac ities. No pleural effusion or pneumothorax. Degenerative changes of the thoracic spine. Upper abdomen normal. IMPRESSION: 1. Removal of the right pleural drain. No pneumothorax. 2. Postsurgical changes of the right lung. 3. Minimal bibasilar atelectasis. Electronically signed by: Jay Infante M.D. 04/06/2019 8:16 AM
--- NOTE | 2019-04-06 09:29 | Progress Note ---
DATE: 04/06/2019 Ms. Link was seen today. She has been really having quite a bit of pain. Her A-a gradient is improving. She is 97% on just 2 liters today. She still has rhonchi on the right side and she has a productive cough now. It was a yellowish sputum last night. It was sent off for sputum sample. I am going to start her on antibiotics. I removed her chest tube today and her x-ray looks better. White count 2 days ago was 6840. She has been afebrile and with stable vital signs, but I am a bit concerned about her cough and especially her auscultatory exam. Now that her tube is out, we are going to increase her ambulation and be aggressive with her pulmonary toilet. I am uncomfortable sending this 78-year-old patient home as I am afraid she will bounce back to the ER quite quickly. We put her on antibiotics and increase her pulmonary toilet today and see how she looks in the morning.
[2019-04-06] MEDS: FUROSEMIDE 20 MG TAB PO SCH (10:10)
[2019-04-06] MEDS: DOCUSATE SODIUM 100 MG CAP PO SCH ×2 (10:11→21:07)
[2019-04-06] MEDS: ENOXAPARIN INJ 40 MG/0.4 ML SYR SQ SCH (10:11)
[2019-04-06] MEDS: HydrALAZINE TAB 50 MG TAB PO SCH ×2 (10:11→21:08)
[2019-04-06] MEDS: AMOXICILLIN/CLAVULANATE 875 MG TAB PO SCH ×2 (10:11→16:17)
[2019-04-06] MEDS: CARVEDILOL 25 MG TAB PO SCH ×2 (10:11→21:07)
[2019-04-06] MEDS: TIOTROPIUM BROMIDE 5 PUFF/90 MCG INH INH SCH ×2 (10:12→21:10)
[2019-04-06] MEDS: FLUTICASONE INH SCH (10:12)
[2019-04-06] MEDS: VILANTEROL INH SCH (10:12)
[2019-04-06] MEDS: WARFARIN SOD 2 MG TAB PO SCH (15:27)
[2019-04-06] MEDS: SIMVASTATIN 40 MG TAB PO SCH (21:09)
[2019-04-06] MEDS: OXYCODONE HCL IR 5 MG TAB (IMMEDIATE RELEASE) PO PRN (23:11)
[2019-04-07] MEDS: ACETAMINOPHEN 325 MG TAB PO SCH ×6 (00:13→23:53)
[2019-04-07] MEDS: VILANTEROL INH SCH ×2 (07:38→08:42)
[2019-04-07] MEDS: FLUTICASONE INH SCH ×2 (07:38→08:42)
[2019-04-07] MEDS: TIOTROPIUM BROMIDE 5 PUFF/90 MCG INH INH SCH ×3 (07:38→20:45)
[2019-04-07] MEDS: DOCUSATE SODIUM 100 MG CAP PO SCH ×2 (08:42→20:44)
[2019-04-07] MEDS: CARVEDILOL 25 MG TAB PO SCH ×2 (08:42→20:43)
[2019-04-07] MEDS: HydrALAZINE TAB 50 MG TAB PO SCH ×2 (08:42→20:44)
[2019-04-07] MEDS: ENOXAPARIN INJ 40 MG/0.4 ML SYR SQ SCH (08:43)
[2019-04-07] MEDS: FUROSEMIDE 20 MG TAB PO SCH (08:43)
[2019-04-07] MEDS: AMOXICILLIN/CLAVULANATE 875 MG TAB PO SCH ×2 (08:43→16:24)
--- NOTE | 2019-04-07 09:56 | Progress Note ---
DATE: 04/07/2019 The patient was seen today on 04/07/2019. She is now postop day 4 from a lobectomy for squamous cell carcinoma. She still has some decreased breath sounds on the right, but she is essentially off of oxygen. Her vital signs are stable, but she is quite lethargic. I have discontinued all of her narcotics. She is not having significant pain. We will give her Tylenol for this. I have also ordered lab work. She does have Gram positive cocci on her sputum and she is producing some sputum. I started her on amoxicillin yesterday. The patient has been ambulating in the hallway. She lives alone and I am just concerned about sending her home at this point. If she has not improved by tomorrow, we will get the discharge planners and case consultant to see her about possibly a short stay in a rehab or long-term care facility. LUNA
[2019-04-07 10:19] LABS: Basophils # (auto) 0.01 K/uL (0-0.2); Basophils % (auto) 0.1 %; Eosinophils # (auto) 0.04 K/uL (0-0.5); Eosinophils % (auto) 0.3 %; Hematocrit (blood only) 32.5 % (37-47); Hemoglobin 10.8 g/dL (12.0-16.0); Immature Granulocytes # (auto) 0.03 K/uL (0.00-0.02); Immature Granulocytes % (auto) 0.3 %; Lymphocytes % (auto) 3.5 %; Mean Corpuscular Hgb Conc 33.2 g/dL (32-36); Mean Corpuscular Volume 90.8 fL (80-100); Mean Platelet Volume 9.8 fL (7.4-10.4); Monocytes # (auto) 0.44 K/uL (0.11-0.59); Monocytes % (auto) 3.8 %; Neutrophils # (auto) 10.51 K/uL (1.4-6.5); Platelet Count 198 K/uL (130-400); RDW Coefficient of Variation 14.8 % (11.5-14.5); RDW Standard Deviation 49.1 fL (36.4-46.3); Red Blood Count 3.58 M/uL (4.2-5.4); White Blood Count 11.43 K/uL (4.8-10.8)
[2019-04-07 10:41] LABS: Albumin Level 2.7 gm/dl (3.4-5.0); BUN Creatinine Ratio 30.3 (10-20); Calcium 8.8 mg/dl (8.5-10.1); Creatinine Clr Calc Pharmacy 29.7 ml/min; Est GFR (African American) 33.4; Est GFR (Non-African American) 28.8; Phosphorus 2.7 mg/dl (2.5-4.9); Potassium 4.7 mmol/L (3.5-5.1)
--- NOTE | 2019-04-07 11:42 | XRay Report ---
XR chest 2V routine HISTORY: 78 years-old Female lobectomy follow-up study in a patient with prior surgery of the right hemithorax COMPARISON: Chest radiograph 04/06/2019 and 04/05/2019, PET CT 02/14/2019. TECHNIQUE: Portable AP and lateral views of the chest FINDINGS: Cardiac silhouette is enlarged, unchanged. Calcification of the thoracic aortic arch. Compensatory hy perinflation of the left lung. Slightly improved aeration of the left lung base. Bilateral the right lung redemonstrated. Decreased subcutaneous emphysema about the lateral right pa[address] st wall. No pneumothorax. Progressive right lung base and linear right midlung opacities. Degenerativ e changes of the shoulders and spine. Unchanged L2 compression deformity. IMPRESSION: 1. New linear opacities of the right midlung, possibly reflective of radiation pneumonitis. Correlate clinically. 2. No pneumothorax. 3. Persistent right lung base opacities. 4. Decreased subcutaneous emphysema about the right lateral chest wall. The above report was generated using voice recognition software. It may contain grammatical, syntax o r spelling errors. Electronically signed by: Go Huerta M.D. 04/07/2019 11:41 AM
[2019-04-07] MEDS ORDERED: SODIUM CHLORIDE 0.9% 1000ML 500 ML IV ONE (15:09)
[2019-04-07] MEDS: WARFARIN SOD 2 MG TAB PO SCH (16:23)
[2019-04-07] MEDS: D5W AND 1/2NSS 1,000 ML IV SCH (19:09)
[2019-04-07] MEDS: SIMVASTATIN 40 MG TAB PO SCH (20:44)
[2019-04-07] MEDS ORDERED: COUGH DROP (SUGAR FREE) LOZ 24 LOZ/1 BOX BUCCAL PRN (22:25)
[2019-04-08] MEDS: ACETAMINOPHEN 325 MG TAB PO SCH ×3 (06:26→18:32)
[2019-04-08] MEDS: D5W AND 1/2NSS 1,000 ML IV SCH ×2 (08:01→23:07)
--- NOTE | 2019-04-08 08:22 | Surgery Progress Note ---
Date of Service April 08, 2019 Assessment & Plan (1) Squamous cell lung cancer: -pt. is s/p RLL on 04/03/19 -continue analgesics with tylenol -no narcotics due to lethargy previously noted -no NSAIDs due to CKD -encourage use of IS, cough, deep breathing -lethargy has been improving with cessation -suspected pulmonary infection may be a contributing factor; -will change augmentin to IV zosyn -CKD stable -due to lethargy will ask [facility] to see -pt. lives alone and may require acute rehab: -case mgt. is following -will ask PT & OT for evaluations -lovenox in in place for DVT prevention -pt. has had coumadin resumed, so will stop lovenox once INR >2.0 Subjective Pt. doing well. She notes her breathing feels good. She denies pain. Discussed with RN. Pt. was noted to be lethargic yesterday and therefore did not ambulate in hallway. Overnight she has been responding more appropriately, particularly since all narcotic pain meds have been discintinued. She is voiding without difficulty. Physical Exam Constitutional: well developed and well nourished; no acute distress Respiratory: normal respiratory effort; no respiratory distress and no labored breathing BS are clear without wheezing or rhinchi Cardiovascular: Rate/Rhythm: regular rate and regular rhythm Gastrointestinal (Abdomen): soft and non-tender Musculoskeletal: no calf tenderness Neurologic: Pt. is alert to time, place, person. She knows she in in hospital and had a lung operation. She moves all extremities without any noted focal deficits. Results & Data Vital Signs (Past 12 Hours) Vital Signs Temp Pulse Pulse Resp BP Pulse Ox 04/08/19 07:57 36.6 C 80 18 130/74 94 04/07/19 23:35 36.7 C 86 20 137/72 92 04/07/19 20:26 89 151/78 H
[2019-04-08 08:30] LABS: Basophils # (auto) 0.01 K/uL (0-0.2); Basophils % (auto) 0.1 %; Eosinophils # (auto) 0.15 K/uL (0-0.5); Eosinophils % (auto) 1.9 %; Hematocrit (blood only) 26.9 % (37-47); Hemoglobin 8.9 g/dL (12.0-16.0); Immature Granulocytes # (auto) 0.04 K/uL (0.00-0.02); Immature Granulocytes % (auto) 0.5 %; Lymphocytes # (auto) 0.47 K/uL (1.2-3.4); Lymphocytes % (auto) 5.8 %; Mean Corpuscular Hgb Conc 33.1 g/dL (32-36); Mean Corpuscular Volume 91.5 fL (80-100); Mean Platelet Volume 9.3 fL (7.4-10.4); Monocytes # (auto) 0.71 K/uL (0.11-0.59); Monocytes % (auto) 8.8 %; Neutrophils # (auto) 6.66 K/uL (1.4-6.5); Neutrophils % (auto) 82.9 %; Platelet Count 171 K/uL (130-400); RDW Coefficient of Variation 14.7 % (11.5-14.5); Red Blood Count 2.94 M/uL (4.2-5.4); White Blood Count 8.04 K/uL (4.8-10.8)
--- NOTE | 2019-04-08 08:34 | XRay Report ---
XR chest 1V portable CLINICAL HISTORY: 78 years-old Female presenting with lobectomy. TECHNIQUE: Portable upright AP view of the chest was obtained. COMPARISON: 04/07/2019. FINDINGS: Atherosclerosis of the aortic arch. Cardiac silhouette borderline enlarged. Rightward mediastinal rula ft. Decreased volume of the right hemithorax compatible with right lobectomy. Slightly increased size of the small to moderate right pleural effusion. Increased right pulmonary vascular prominence with diffuse granular density of the right lung. Fluid noted in the minor fissure. Trace right apical pneu mothorax. Left lung and pleural space clear. Osteopenia may be present. Degenerative changes of the s pine. Upper abdomen normal. IMPRESSION: 1. Worsening diffuse right lung infiltrate and worsening right pleural effusion. Findings could sugg est asymmetric edema, asymmetric aspiration, or infection. 2. Trace right apical pneumothorax. Electronically signed by: Jay Infante M.D. 04/08/2019 8:33 AM
[2019-04-08] MEDS ORDERED: PIPERACILL/TAZOBAC CONSULT ACTIVE PRN (08:38)
[2019-04-08] MEDS ORDERED: PIPERACILLIN/TAZOBACTAM 3.375 GM in DEXTROSE 5% 100 ML IV SCH (08:45)
[2019-04-08 08:59] LABS: BUN Creatinine Ratio 31.2 (10-20); Calcium 8.6 mg/dl (8.5-10.1); Creatinine Clr Calc Pharmacy 29.2 ml/min; Est GFR (African American) 32.7; Est GFR (Non-African American) 28.2; Potassium 4.5 mmol/L (3.5-5.1)
[2019-04-08] MEDS ORDERED: PIPERACILLIN/TAZOBACTAM 4.5 GM in DEXTROSE 5% 100 ML IV SCH (09:00)
[2019-04-08] MEDS: CARVEDILOL 25 MG TAB PO SCH ×2 (09:01→21:59)
[2019-04-08] MEDS: DOCUSATE SODIUM 100 MG CAP PO SCH ×2 (09:01→21:59)
[2019-04-08] MEDS: ENOXAPARIN INJ 40 MG/0.4 ML SYR SQ SCH (09:02)
[2019-04-08] MEDS: HydrALAZINE TAB 50 MG TAB PO SCH ×2 (09:02→21:59)
[2019-04-08] MEDS: FLUTICASONE INH SCH (09:02)
[2019-04-08] MEDS: VILANTEROL INH SCH (09:02)
[2019-04-08] MEDS: FUROSEMIDE 20 MG TAB PO SCH (09:02)
[2019-04-08] MEDS: AMOXICILLIN/CLAVULANATE 875 MG TAB PO SCH (09:06)
[2019-04-08 09:09] LABS: Phosphorus 3.3 mg/dl (2.5-4.9)
[2019-04-08] MEDS: TIOTROPIUM BROMIDE 5 PUFF/90 MCG INH INH SCH ×2 (09:51→21:59)
--- NOTE | 2019-04-08 13:11 | Progress Note ---
DATE: 04/08/2019 Ms. Link was seen today. She is now 5 days status post thoracoscopic right lower lobectomy for a squamous cell carcinoma. The patient has had some struggles. She was a bit dehydrated yesterday as she was really not taking much in the way of p.o. She also had a productive cough. Restarted her antibiotics yesterday and her white count is down to 8040. Her BUN and creatinine are about the same at 53 and 1.69. It should be noted that her baseline creatinine runs as high as 1.88. I reviewed her x-ray today. I am a bit concerned as she has an infiltrate and perhaps a small worsening effusion on the right. I do not think this patient has aspirated clinically. She is on the antibiotics and interestingly enough, her procalcitonin was normal. I do have concerns about her x-ray; however, at this point, she looks better clinically and sounds better. We are going to continue her activities, she is moving more than she did and she is eating better today. I remain quite concerned about her right lung. I would be uncomfortable sending her out at this point. We will see how she looks in the morning and repeat a film at that time. I am feeling less unless this is an infection. I am more concerned about unilateral pulmonary edema, although her left looks quite good.
[2019-04-08] MEDS: PIPERACILLIN/TAZOBACTAM 3.375 GM in DEXTROSE 5% 100 ML IV SCH ×2 (13:16→21:59)
[2019-04-08] MEDS: WARFARIN SOD 2 MG TAB PO SCH (15:32)
--- NOTE | 2019-04-08 17:20 | Hospitalist Consultation ---
Date of Consultation April 08, 2019 Assessment & Plan (1) Squamous cell lung cancer: S/p right lower lobectomy on 04/[address] Roper. Found to have T1cN0 squamous cell carcinoma. - Post-operative care per primary team - For pain control, I added a lidocaine patch at the surgical site to help avoid opiates (2) Confusion: As discussed by thoracic surgery note, likely due to opiate medications along with possible infectious process. - Continue abx as per primary team for possible pneumonia - Avoid opiates if able - Presently alert and responsive; no need for further investigation unless the patient decompensates (3) Hypertension: Well-controlled over the last few days. - Continue home carvedilol, hydralazine, Lasix (4) COPD (chronic obstructive pulmonary disease): Minimal shortness of breath today, though she did have some desaturations with walking with PT. - Continue home Breo, Spiriva, and PRN albuterol (5) Recurrent pulmonary embolism: In 12/2013. - On lifelong anticoagulation (6) DVT prophylaxis: Lovenox 30mg -> Transitioning to warfarin History of Present Illness Attending Physician: Russ Roper MD, FACS History of Present Illness 78yo F w/ hx of COPD who presents as a medical consult after a right lower lobectomy on 04/[address] Roper. We were consulted for altered mental status and lethargy occurring yesterday. Per daughter, she was somewhat tired and lethargic on Monday, but was almost unable to speak/interact on Monday. She was seen by thoracic surgery who stopped all narcotic medications and switched her from Augmentin to Zosyn on 04/07. I saw her two times today, and she has been alert and oriented for me. She worked with PT with some mild desaturations and was up in bed with her daughter present in the afternoon. Overall, she reports pain in the right back/rib area where the procedure was, but otherwise denies shortness of breath. Allergies Allergy/AdvReac Type Severity Reaction Status Date / Time chlorhexidine Allergy Mild HIVES,RED Verified 04/03/19 10:50 RASH Home Medications Home Medications Medication Instructions Recorded Confirmed Type Breo Ellipta 1 inh INHALATION DAILY 12/23/18 04/03/19 History carvedilol 25 mg PO BID 12/23/18 04/03/19 History ferrous sulfate 325 mg PO DAILY 12/23/18 04/03/19 History furosemide 20 mg PO QAM 12/23/18 04/03/19 History hydralazine 50 mg PO BID 12/23/18 04/03/19 History sennosides-docusate sodium 1 tab PO HS PRN 12/23/18 04/03/19 History [Senna-S] warfarin 1 mg PO WK 12/23/18 04/03/19 History warfarin 2 mg PO 6XWK 12/23/18 04/03/19 History ergocalciferol (vitamin D2) 50,000 50,000 unit PO MONTHLY #3 cap 02/27/19 04/03/19 History unit capsule tiotropium bromide 2.5 2 puffs INHALATION ONCE #2 gm 02/27/19 04/03/19 History mcg/actuation mist for inhalation Oxygen Home #1 ea 03/19/19 04/03/19 History albuterol sulfate [Ventolin HFA] 2 puff INHALATION Q4 PRN 04/03/19 04/03/19 History simvastatin 40 mg PO HS 04/03/19 04/03/19 History Patient History Medical History Anemia Cardiomyopathy Coronary artery disease NON-OBSRTUCTIVE Mitral regurgitation Nocturnal hypoxemia 2L AT HS 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 Takotsubo syndrome 2016 Lung nodule (Resolved) CKD (chronic kidney disease) BASELINE CREATININE 1.6-1.8 PER CHART REVIEW COPD (chronic obstructive pulmonary disease) History of [place] (myocardial infarction) 2016= MEDICALLY MANAGED History of abdominal aortic aneurysm (AAA) S/P REPAIR 2016 Hyperlipidemia Hypertension Multinodular goiter Osteoarthritis Pulmonary embolism RECURRENT (~2012) ON COUMADIN Surgical History AAA (abdominal aortic aneurysm) S/P REPAIR 2016 Status post total replacement of hip (Resolved 04/19/13) History of bladder surgery TURBT History of bronchoscopy EBUS, Navigational bronch with biopsy: 02/21/19: Grade 2 view, MAC 3, ETT 8.5 History of tooth extraction Family History Other Dyslipidemia Social History Preferred Language: Citizen Of [place] Communication Ability: Effective 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 Beliefs That Will Affect Care: None marital status: / Current Living Situation: Alone Other Information That Helps Us Care for You: No Feels Safe at Home: Yes Safety Concerns: Feels Safe At This Time Smoking Status: Never smoker Do You Dip or Chew Tobacco: No Smoking End Date: 2007 Second Hand Exposure: No Tobacco Cessation Education Requested by Patient: No Hx Alcohol Use: No Hx Substance Use: No Review of Systems Review of Systems: All systems reviewed & are unremarkable except as noted in HPI & below Physical Exam Constitutional: WD/WN, vitals as above Eyes: EOM intact bilaterally; no conjunctival abnormality ENMT: external ear and nose normal, oropharynx normal Neck: trachea midline, no thyromegaly normal visual inspection Respiratory: normal respiratory effort, lungs clear to auscultation no respiratory distress Cardiovascular: RRR, no murmur, no edema Gastrointestinal (Abdomen): Inspection/Auscultation: abdomen normal to inspection; abdomen not distended Musculoskeletal: no cyanosis or clubbing, extremities motor strength 5/5 Skin: no rashes, warm and dry Neurologic: moves all extremities and awake Psychiatric: Orientation: alert, oriented to person and cooperative Results & Data Vital Signs (Past 12 Hours) Vital Signs Temp Pulse Pulse Resp BP Pulse Ox 04/08/19 15:07 36.9 C 87 17 116/69 91 04/08/19 07:57 36.6 C 80 18 130/74 94
[2019-04-08] MEDS: LIDOCAINE 5% 1 PATCH TD SCH (18:17)
[2019-04-08] MEDS: SIMVASTATIN 40 MG TAB PO SCH (21:59)
[2019-04-09] MEDS: ACETAMINOPHEN 325 MG TAB PO SCH ×5 (00:30→23:05)
[2019-04-09] MEDS: D5W AND 1/2NSS 1,000 ML IV SCH (04:45)
[2019-04-09] MEDS: PIPERACILLIN/TAZOBACTAM 3.375 GM in DEXTROSE 5% 100 ML IV SCH ×3 (04:45→22:09)
[2019-04-09] MEDS: CARVEDILOL 25 MG TAB PO SCH ×2 (08:23→20:10)
[2019-04-09] MEDS: HydrALAZINE TAB 50 MG TAB PO SCH ×2 (08:23→20:10)
[2019-04-09] MEDS: FUROSEMIDE 20 MG TAB PO SCH (08:23)
[2019-04-09] MEDS: DOCUSATE SODIUM 100 MG CAP PO SCH ×2 (08:23→20:09)
[2019-04-09] MEDS: LIDOCAINE 5% 1 PATCH TD SCH (08:24)
[2019-04-09] MEDS: TIOTROPIUM BROMIDE 5 PUFF/90 MCG INH INH SCH ×2 (08:24→20:09)
[2019-04-09] MEDS: FLUTICASONE INH SCH (08:24)
[2019-04-09] MEDS: VILANTEROL INH SCH (08:24)
[2019-04-09] MEDS ORDERED: ENOXAPARIN INJ 30 MG/0.3 ML SYR SQ SCH (09:00)
--- NOTE | 2019-04-09 10:10 | CT Scan Report ---
CT OF THE CHEST WITHOUT IV CONTRAST CLINICAL HISTORY: Pleural effusion. COMPARISON STUDY: PET/CT February 04, 2019. Chest radiograph April 08, 2019. CT DOSE: 298.29 mGy.cm TECHNIQUE: Axial images of the chest were obtained without IV contrast. Images were reviewed in the axial, sagittal, and coronal planes. IV contrast was not administered for this examination. Automat ed exposure control was utilized for the study. A dose lowering technique was utilized adhering to t he principles of ALARA. FINDINGS: The heart is mildly enlarged. Moderate coronary artery calcification is noted. No pericard ial effusion. A small loculated right hydropneumothorax is noted. Interlobular septal thickening with in the right lung is noted. There is extensive airspace opacity within the right upper lobe as well a s airspace opacity within the right middle lobe. Secretions within the right middle lobe bronchi are noted. Gas within the right chest wall with infiltration is related to recent chest tube. There are p ostoperative findings consistent with a right lower lobectomy. The left lung is clear. There is no le ft pneumothorax. Note is made of a prominent right paratracheal lymph node on axial image 80 of 301 m easures 1 cm in short axis diameter. This was normal in size on PET/CT of February 04, 2019 and is probab ly reactive. There is extensive plaque of the thoracic aorta. Visualized portions of the upper abdome n demonstrate a small amount of pneumoperitoneum. IMPRESSION: 1. Small amount of pneumoperitoneum. This could be correlated with abdominal pain and history of rece nt abdominal procedure. A CT of the abdomen and pelvis could be obtained for further evaluation. Disc ussed with Dr. Roper at time of dictation. 2. Status post right lower lobectomy. Small loculated right hydropneumothorax. Extensive secretions w ithin the right middle lobe bronchi. 3. Right lung airspace opacity which favors pneumonia although alveolar edema could appear similar. 4. Interlobular septal thickening within the right lung which suggests asymmetric interstitial pulmon arelis edema. Electronically signed by: Gerardo Pires M.D. 04/09/2019 10:09 AM
[2019-04-09] MEDS: WARFARIN SOD 2 MG TAB PO SCH (15:47)
--- NOTE | 2019-04-09 16:02 | Hospitalist Progress Note ---
Date of Service April 09, 2019 Assessment & Plan (1) Squamous cell lung cancer: S/p right lower lobectomy on 04/[address] Roper. Found to have T1cN0 squamous cell carcinoma. - Post-operative care per primary team - For pain control, I added a lidocaine patch at the surgical site to help avoid opiates - Appears to be helping (2) Pneumonia: CT chest on 04/09 showed likely right lung pneumonia. - Continue Zosyn - Will get MRSA swab (3) Confusion: As discussed by thoracic surgery note, likely due to opiate medications along with possible infectious process. - Continue abx as per primary team for pneumonia - Avoid opiates if able - Presently alert and responsive; no need for further investigation unless the patient decompensates (4) Hypertension: Well-controlled over the last few days. - Continue home carvedilol, hydralazine, Lasix (5) COPD (chronic obstructive pulmonary disease): Minimal shortness of breath today, though she did have some desaturations with walking with PT. - Continue home Breo, Spiriva, and PRN albuterol (6) Recurrent pulmonary embolism: In 12/2013. - On lifelong anticoagulation (7) DVT prophylaxis: Lovenox 30mg -> Transitioning to warfarin Subjective Feeling better today. No major shortness of breath. Pain in the right side has improved with the lidocaine patch. Review of Systems Review of Systems: All systems reviewed & are unremarkable except as noted in HPI & below Physical Exam Constitutional: WD/WN, vitals as above Eyes: EOM intact bilaterally; no conjunctival abnormality ENMT: external ear and nose normal, oropharynx normal Neck: trachea midline, no thyromegaly normal visual inspection Respiratory: normal respiratory effort, lungs clear to auscultation no respiratory distress Cardiovascular: RRR, no murmur, no edema Gastrointestinal (Abdomen): Inspection/Auscultation: abdomen normal to inspection; abdomen not distended Musculoskeletal: no cyanosis or clubbing, extremities motor strength 5/5 Skin: no rashes, warm and dry Neurologic: moves all extremities and awake Psychiatric: Orientation: alert, oriented to person and cooperative Results & Data Vital Signs (Past 12 Hours) Vital Signs Temp Pulse Pulse Resp BP Pulse Ox Pulse Ox 04/09/19 15:08 36.5 C 77 17 136/74 91 04/09/19 09:12 92 04/09/19 08:09 36.6 C 77 20 126/72 91
--- NOTE | 2019-04-09 18:04 | Progress Note ---
DATE: 04/09/2019 The patient was seen today on postoperative day 6 from her right lower lobectomy for nonsmall cell lung carcinoma. The patient sounds much better. She is eating better. We stopped her IVs. She is making urine. However, this afternoon, she developed an irregular rhythm at rate in the 120s and is in atrial fibrillation. I suspected as much a couple of days ago when she was not feeling well, but her EKG showed no evidence of atrial fibrillation at that time. The patient is already on Coumadin. I am going to ask [facility] to see her and we are going to move her down to a Telemetry Unit. I did discuss this with the patient and her daughter. LUNA
[2019-04-09] MEDS ORDERED: [UNRECOGNIZED DRUG - OTHER] SCH (18:26)
[2019-04-09] MEDS ORDERED: DOCUSATE SODIUM/SENNA 50/8.6MG TAB PO PRN (18:26)
[2019-04-09] MEDS ORDERED: METOPROLOL TARTRATE 1 MG/ML VIAL IV STA (19:39)
[2019-04-09] MEDS: SIMVASTATIN 40 MG TAB PO SCH (20:09)
[2019-04-09] MEDS ORDERED: SODIUM CHLORIDE 0.9% 1000ML 1,000 ML IV ONE (20:13)
[2019-04-09] MEDS: ALBUMIN 25% 50 ML IV SCH ×2 (20:59→22:09)
[2019-04-09 22:14] LABS: INR 1.5 (0.9-1.1); Prothrombin Time 15.1 Seconds (9.0-12.0)
[2019-04-09 22:22] LABS: BUN Creatinine Ratio 26.5 (10-20); Creatinine Clr Calc Pharmacy 27.6 ml/min; Est GFR (African American) 30.5; Est GFR (Non-African American) 26.3; Magnesium 2.4 mg/dl (1.8-2.4); Potassium 3.9 mmol/L (3.5-5.1)
[2019-04-10] MEDS: ACETAMINOPHEN 325 MG TAB PO SCH ×4 (05:27→23:59)
[2019-04-10] MEDS: PIPERACILLIN/TAZOBACTAM 3.375 GM in DEXTROSE 5% 100 ML IV SCH ×3 (05:27→20:06)
[2019-04-10 06:57] LABS: Hemoglobin 7.7 g/dL (12.0-16.0); Mean Corpuscular Hgb Conc 33.5 g/dL (32-36); Mean Corpuscular Volume 90.6 fL (80-100); Mean Platelet Volume 8.5 fL (7.4-10.4); Platelet Count 171 K/uL (130-400); RDW Coefficient of Variation 14.5 % (11.5-14.5); RDW Standard Deviation 48.3 fL (36.4-46.3); Red Blood Count 2.54 M/uL (4.2-5.4); White Blood Count 6.83 K/uL (4.8-10.8)
[2019-04-10 07:10] LABS: INR 1.7 (0.9-1.1); Prothrombin Time 17.2 Seconds (9.0-12.0)
[2019-04-10 07:32] LABS: BUN Creatinine Ratio 27.1 (10-20); Calcium 8.2 mg/dl (8.5-10.1); Creatinine Clr Calc Pharmacy 31.6 ml/min; Est GFR (African American) 34.6; Est GFR (Non-African American) 29.9; Magnesium 2.3 mg/dl (1.8-2.4); Potassium 3.7 mmol/L (3.5-5.1)
[2019-04-10] MEDS: FLUTICASONE INH SCH (07:59)
[2019-04-10] MEDS: VILANTEROL INH SCH (07:59)
[2019-04-10] MEDS: CARVEDILOL 25 MG TAB PO SCH ×2 (08:00→20:03)
[2019-04-10] MEDS: FERROUS SULFATE 325 MG TAB PO SCH (08:01)
[2019-04-10] MEDS: DOCUSATE SODIUM 100 MG CAP PO SCH ×2 (08:02→20:05)
[2019-04-10] MEDS: LIDOCAINE 5% 1 PATCH TD SCH (08:02)
[2019-04-10] MEDS: HydrALAZINE TAB 50 MG TAB PO SCH ×2 (08:05→20:03)
[2019-04-10] MEDS ORDERED: FUROSEMIDE 20 MG in SYRINGE 0 ML IV ONE (08:20)
--- NOTE | 2019-04-10 09:21 | Cardiology Consultation ---
Date of Consultation April 10, 2019 Assessment & Plan (1) Paroxysmal atrial fibrillation: She developed postoperative atrial fibrillation a few days after surgery. This was self-limiting as she spontaneously converted to sinus rhythm later that evening (04/09/2019). She was asymptomatic. Continue beta-jose a. She is already on long-term anticoagulation for recurrent pulmonary emboli. If this episode was due to postoperative state, long-term anticoagulation would not be warranted based on atrial fibrillation alone, but she requires anticoagulation for other comorbidity. Diagnosis was discussed with her. If she has significant recurrence in the future, and heart rates are difficult to control, could consider rhythm control strategy, but for now would remain on beta-jose a and continue to monitor. (2) Coronary artery disease: No angina. She is being medically managed for her RCA CAD. Continue beta-jose a. continue statin therapy. (3) Anticoagulant long-term use: She is on long-term anticoagulation therapy given recurrent PE. (4) Cardiomyopathy: She has a history of stress-induced cardiomyopathy which has since resolved with normal LV systolic function in 2018. (5) Shortness of breath: Could be multifactorial. She is being treated for possible pneumonia. She also underwent right lower lobectomy. She also appears hypervolemic on exam and is greater than 6 L positive throughout this hospital stay from a net fluid balance, with corresponding weight gain. Agree with diuresis. She has received intravenous diuretics by primary service. Would recommend net negative fluid balance of approximately 1 L today if possible. Consider Re dosing diuretic if necessary. (6) Disposition: Dr. Zuniga, her primary fws faculty assistant, resume her cardiology care tomorrow. Please call with any other questions or concerns. Thank you for allowing me to participate in the care of your patient. Please call for any other questions or concerns. Sincerely, Francis Mccoy M.D. History of Present Illness Reason for Consultation: New onset atrial fibrillation Requesting Physician: Dr. Roper Attending Physician: Russ Roper MD, [facility] History of Present Illness Ms. Link is a very pleasant 78-year-old female with a history significant for squamous cell lung cancer status post right lower lobectomy on 04/03/2019, medically managed CAD, hypertension, history of stress-induced cardiomyopathy (November 2015), recurrent pulmonary emboli on chronic anticoagulation, peripheral vascular disease status post AAA repair. She follows with Dr. Zuniga, her primary fws faculty assistant. Cardiology was asked to assist in her care as she developed postoperative atrial fibrillation with rapid ventricular response.Atrial fibrillation was noted yesterday, 04/09/2019, whenShe was found to be tachycardic last evening. ECG demonstrated atrial fibrillation rapid ventricular response. She was sent to telemetry for further evaluation. She spontaneously converted to sinus rhythm at 8:19 p.m. on 04/09/2019. she was completely asymptomatic in this regard. She denied chest pain, or palpitations. She has had worsening shortness of breath since surgery. She also reports orthopnea, cough, and worsening lower extremity edema. She was felt to be possibly dehydrated earlier this hospital stay due to decreased p.o. intake. There has also been concern for infectious process and she is on antibiotic therapy. She was given a dose of intravenous Lasix earlier today by Dr. Roper. She denies melena, hematochezia, hematuria, or other bleeding. She denies stroke or stroke-like symptoms. She did have some confusion yesterday which was thought to possibly be due to opiate medications. She believes that her mental status has improved and is back to baseline. Review of systems: As above. Review of systems otherwise negative/unremarkable. Family history: No known premature CAD. Social history: She quit smoking in 2009. No alcohol. She lives alone. She is a . She has 1 daughter and 1 grandson. She is unaccompanied. Allergies Allergy/AdvReac Type Severity Reaction Status Date / Time chlorhexidine Allergy Mild HIVES,RED Verified 04/03/19 10:50 RASH Home Medications Home Medications Medication Instructions Recorded Confirmed Type Breo Ellipta 1 inh INHALATION DAILY 12/23/18 04/03/19 History carvedilol 25 mg PO BID 12/23/18 04/03/19 History ferrous sulfate 325 mg PO DAILY 12/23/18 04/03/19 History furosemide 20 mg PO QAM 12/23/18 04/03/19 History hydralazine 50 mg PO BID 12/23/18 04/03/19 History sennosides-docusate sodium 1 tab PO HS PRN 12/23/18 04/03/19 History [Senna-S] warfarin 1 mg PO WK 12/23/18 04/03/19 History warfarin 2 mg PO 6XWK 12/23/18 04/03/19 History ergocalciferol (vitamin D2) 50,000 50,000 unit PO MONTHLY #3 cap 02/27/19 04/03/19 History unit capsule tiotropium bromide 2.5 2 puffs INHALATION ONCE #2 gm 02/27/19 04/03/19 History mcg/actuation mist for inhalation Oxygen Home #1 ea 03/19/19 04/03/19 History albuterol sulfate [Ventolin HFA] 2 puff INHALATION Q4 PRN 04/03/19 04/03/19 History simvastatin 40 mg PO HS 04/03/19 04/03/19 History Patient History Medical History Anemia Cardiomyopathy Coronary artery disease NON-OBSRTUCTIVE Mitral regurgitation Nocturnal hypoxemia 2L AT HS 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 Takotsubo syndrome 2016 Lung nodule (Resolved) CKD (chronic kidney disease) BASELINE CREATININE 1.6-1.8 PER CHART REVIEW COPD (chronic obstructive pulmonary disease) History of [place] (myocardial infarction) 2016= MEDICALLY MANAGED History of abdominal aortic aneurysm (AAA) S/P REPAIR 2016 Hyperlipidemia Hypertension Multinodular goiter Osteoarthritis Pulmonary embolism RECURRENT (~2012) ON COUMADIN Surgical History AAA (abdominal aortic aneurysm) S/P REPAIR 2016 Status post total replacement of hip (Resolved 04/19/13) History of bladder surgery TURBT History of bronchoscopy EBUS, Navigational bronch with biopsy: 02/21/19: Grade 2 view, MAC 3, ETT 8.5 History of tooth extraction Family History Other Dyslipidemia Social History Preferred Language: [place] Communication Ability: Effective 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 Alert and oriented. HEENT: Anicteric sclera. Neck: No appreciable JVD. No bruits. Normal carotid upstrokes bilaterally. Cardiac: PMI was nonpalpable. No ventricular heave. Regular. Normal S1-S2. 1/6 systolic murmur. No rubs, or gallops. Pulmonary: Decreased breath sounds at the right base. Mild crackles mid right lung field, otherwise clear. Abdomen: Soft, nontender, nondistended, with normoactive bowel sounds. No bruits noted. Extremities: 1+ radial pulses bilaterally. 2+ posterior tibialis pulses bilaterally. 1+ bilateral lower extremity edema. No cyanosis. Psychiatric: Affect appears appropriate. Results & Data Vital Signs (Past 12 Hours) Vital Signs Temp Pulse Pulse Pulse Resp BP BP 04/10/19 07:00 37 C 75 18 125/56 L 04/10/19 03:04 36.7 C 77 18 127/53 L 04/09/19 22:44 36.6 C 82 25 H 125/65 Pulse Ox 04/10/19 07:00 97 04/10/19 03:04 91 04/09/19 22:44 93 Intake & Output 04/08/19 04/09/19 04/10/19 04/11/19 06:59 06:59 06:59 06:59 Intake Total 600 / 600 2662.333 / 2662.333 2725 / 2725 Output Total 650 / 650 1150 / 1150 1600 / 1600 Balance -50 / -50 1512.333 / 0200.272 1157 / 1125 Weight 87.2 kg Laboratory Results Laboratory Results - last 24 hr 04/09/19 04/09/19 04/09/19 20:45 20:56 20:56 WBC RBC Hgb Hct MCV MCH MCHC RDW Std Deviation RDW Coeff of Mio Plt Count MPV PT 15.1 H INR 1.5 H Sodium 141 Potassium 3.9 Chloride 106 Carbon Dioxide 26 Anion Gap 9.0 BUN 47 H Creatinine 1.79 H Est Cr Clr Drug Dosing 27.6 Est GFR ( Amer) 30.5 Est GFR (Non-Af Amer) 26.3 BUN/Creatinine Ratio 26.5 H Glucose 125 H Calcium 9.0 Magnesium 2.4 Nasal Screen MRSA (PCR) Negative 04/10/19 04/10/19 04/10/19 06:47 06:47 06:47 WBC 6.83 RBC 2.54 L Hgb 7.7 L Hct 23.0 L MCV 90.6 MCH 30.3 MCHC 33.5 RDW Std Deviation 48.3 H RDW Coeff of Mio 14.5 Plt Count 171 MPV 8.5 PT 17.2 H INR 1.7 H Sodium 140 Potassium 3.7 Chloride 109 H Carbon Dioxide 24 Anion Gap 7.0 BUN 44 H Creatinine 1.61 H Est Cr Clr Drug Dosing 31.6 Est GFR ( Amer) 34.6 Est GFR (Non-Af Amer) 29.9 BUN/Creatinine Ratio 27.1 H Glucose 98 Calcium 8.2 L Magnesium 2.3 Nasal Screen MRSA (PCR) Diagnostic Findings ECHO: 02/22/2018: Normal LV size, systolic function, wall motion. EF 55-60%. Mild to moderate eccentric MR. Type 1 diastolic dysfunction. Telemetry personally reviewed: Sinus rhythm. Rhythm was atrial fibrillation with rapid ventricular response but converted to sinus at 8:19 p.m. on 04/09/2019. ECG personally reviewed: ECG 04/09/2019 at 5:38 p.m.: AFib with RVR 132 bpm. ECG 04/07/2019 at 3:15 p.m.: Sinus rhythm with PVCs. [address] chest 04/09/2019: Small amount of pneumoperitoneum. Status post right lower lobectomy. Small loculated right hydro pneumothorax. Extensive secretions within the right middle lobe bronchi. Right lung airspace opacity, favoring pneumonia per Radiology. Interlobular septal thickening within the right lung, suggesting asymmetric interstitial pulmonary edema per Radiology. Medications Administered Current Inpatient Medications Acetaminophen (Tylenol) 650 mg PO Q6H [facility] Stop: 05/04/19 11:59 Last Admin: 04/10/19 05:27 Dose: 650 mg Documented by: Albuterol (Ventolin Hfa) 2 puffs INH Q4 PRN PRN Reason: Shortness Of Breath Or Wheezin Stop: 05/03/19 19:10 Carvedilol (Coreg) 25 mg PO BID [facility] Stop: 05/03/19 20:59 Last Admin: 04/10/19 08:00 Dose: 25 mg Documented by: Docusate Sodium (Colace) 100 mg PO BID [facility] Stop: 05/03/19 20:59 Last Admin: 04/10/19 08:02 Dose: Not Given Documented by: Ergocalciferol (Vitamin D2) 50,000 units PO Q30D [facility] Stop: 06/08/19 08:59 Ferrous Sulfate (Feosol) 325 mg PO DAILY [facility] Stop: 05/10/19 08:59 Last Admin: 04/10/19 08:01 Dose: 325 mg Documented by: Fluticasone/Vilanterol (Breo Ellipta) 1 puffs INH DAILY [facility] Stop: 05/04/19 08:59 Last Admin: 04/10/19 07:59 Dose: 1 puffs Documented by: Furosemide (Lasix) 20 mg PO QAM [facility] Stop: 05/10/19 08:59 Hydralazine HCl (Apresoline) 50 mg PO BID [facility] Stop: 05/03/19 20:59 Last Admin: 04/10/19 08:05 Dose: 50 mg Documented by: Piperacillin Sod/Tazobactam (Sod 3.375 gm/ Dextrose) 115 mls @ 28.75 mls/hr IV Q8H [facility]; Protocol Stop: 04/15/19 13:59 Last Admin: 04/10/19 05:27 Dose: 28.8 mls/hr Documented by: Lidocaine (Lidoderm 5%) 1 patch TD QAM [facility] Stop: 05/08/19 17:29 Last Admin: 04/10/19 08:02 Dose: 1 patch Documented by: Menthol (Nice) 1 ty BUCCAL PRN PRN PRN Reason: Cough Stop: 05/07/19 22:24 Miscellaneous (Remove Lidoderm Patch) 1 ea N/A DAILY@2100 [facility] Stop: 05/08/19 20:59 Last Admin: 04/09/19 22:11 Dose: 1 ea Documented by: Miscellaneous Information (Consult) 1 ea N/A UD PRN PRN Reason: Consult Stop: 05/08/19 08:37 Ondansetron HCl (Zofran) 4 mg IV Q4H PRN PRN Reason: Nausea And Vomiting Stop: 05/03/19 19:10 Senna/Docusate Sodium (Senokot S) 1 tab PO HS PRN PRN Reason: Constipation Stop: 05/09/19 18:25 Simvastatin (Zocor) 40 mg PO HS [facility] Stop: 05/03/19 20:59 Last Admin: 04/09/19 20:09 Dose: 40 mg Documented by: Tiotropium [place] (Spiriva) 1 puffs INH BID [facility] Stop: 05/05/19 08:59 Last Admin: 04/09/19 20:09 Dose: 1 puffs Documented by: Warfarin Sodium (Coumadin) 1 mg PO Fr@1600 [facility] Stop: 05/12/19 15:59 Warfarin Sodium (Coumadin) 2 mg PO SuMoTuWeThSa@1600 [facility] Stop: 05/10/19 15:59
[2019-04-10] MEDS: TIOTROPIUM BROMIDE 5 PUFF/90 MCG INH INH SCH ×2 (10:07→20:05)
[2019-04-10] MEDS: FUROSEMIDE 20 MG TAB PO SCH (13:37)
--- NOTE | 2019-04-10 14:26 | Hospitalist Progress Note ---
Date of Service April 10, 2019 Assessment & Plan (1) Squamous cell lung cancer: S/p right lower lobectomy on 04/[address] Roper. Found to have T1cN0 squamous cell carcinoma. - Post-operative care per primary team - For pain control, I added a lidocaine patch at the surgical site to help avoid opiates - Appears to be helping (2) Anemia: Baseline hgb ~10-12. Remained ~10 after surgery, then down to 9 on 04/08 and down to 7.7 on 04/10. - No sign of bleeding externally or from GI tract (no melena or hematochezia, no hematemesis) - Concern for possible surgical site bleed vs. poor bone marrow response from her age - Will get anemia labs tomorrow with her CBC - Plan to transfuse for hgb < 7 (3) Paroxysmal atrial fibrillation: Episode occurred in the evening of 04/09 and returned to sinus rhythm by 04/10. - Seen by cardiology; already on anticoagulation for her recurrent PEs - If she goes back and forth, could consider further rate or rhythm control (4) Pneumonia: CT chest on 04/09 showed likely right lung pneumonia. - MRSA swab on 04/09 was negative - Continue Zosyn per primary team (5) Confusion: As discussed by thoracic surgery note, likely due to opiate medications along with possible infectious process. - Continue abx as per primary team for pneumonia - Avoid opiates if able - Presently alert and responsive; no need for further investigation unless the patient decompensates (6) Hypertension: Well-controlled over the last few days. - Continue home carvedilol, hydralazine, Lasix (7) COPD (chronic obstructive pulmonary disease): Minimal shortness of breath today, though she did have some desaturations with walking with PT. - Continue home Breo, Spiriva, and PRN albuterol (8) Recurrent pulmonary embolism: In 12/2013. - On lifelong anticoagulation (9) DVT prophylaxis: Lovenox 30mg -> Transitioning to warfarin Subjective Feeling well still. No symptoms with her afib yesterday. Review of Systems Review of Systems: All systems reviewed & are unremarkable except as noted in HPI & below Physical Exam Constitutional: WD/WN, vitals as above Eyes: EOM intact bilaterally; no conjunctival abnormality ENMT: external ear and nose normal, oropharynx normal Neck: trachea midline, no thyromegaly normal visual inspection Respiratory: normal respiratory effort, lungs clear to auscultation no respiratory distress Cardiovascular: RRR, no murmur, no edema Gastrointestinal (Abdomen): Inspection/Auscultation: abdomen normal to inspection; abdomen not distended Musculoskeletal: no cyanosis or clubbing, extremities motor strength 5/5 Skin: no rashes, warm and dry Neurologic: moves all extremities and awake Psychiatric: Orientation: alert, oriented to person and cooperative Results & Data Vital Signs (Past 12 Hours) Vital Signs Temp Pulse Pulse Pulse Resp BP Pulse Ox 04/10/19 11:56 36.5 C 74 18 149/58 H 95 04/10/19 07:00 37 C 75 18 125/56 L 97 04/10/19 03:04 36.7 C 77 18 127/53 L 91
[2019-04-10] MEDS: WARFARIN SOD 2 MG TAB PO SCH (17:34)
--- NOTE | 2019-04-10 19:03 | Progress Note ---
DATE: 04/10/2019 The patient was seen today on the telemetry unit. Her daughter was at the bedside. The patient states that she feels "horrible today." Hemoglobin is down to 7.7. She is requiring 2 liters of oxygen with 97% sat and she was down to room air yesterday. She was in atrial fibrillation, but spontaneously converted at 8:30 last night. evaluated her from a cardiology standpoint. The patient has been ambulating. Her p.o. intake is poor today. She does not feel like eating. Her white count today is 6830, hemoglobin is 7.7. The chemistries were evaluated and her BUN and creatinine were down to 44 and 1.61. However, her extremities are "swollen." The patient's daughter feels that she is "overloaded." PHYSICAL EXAMINATION: Her incisions are all clean. Her right chest tube dressing site is clean. She does have decreased breath sounds on the right, but she is not wheezing. She has some rhonchi and has just continued to have a cough. Oral mucosa is moist. She does have some edema of her upper and lower extremities, probably about 1+. Her extremities are warm and well perfused. She has a regular rate and rhythm of her heart today. ASSESSMENT AND PLAN: Postoperative day #7 status post robotic-assisted thoracoscopic right lower lobectomy for squamous cell carcinoma x2. The CT scan yesterday shows she does have some secretions in the right middle lobe bronchus. I am hopeful that she does not have an acute lung injury although she is not really acting like that. I think we are going to continue to monitor her today and then may be refer back for tomorrow. LUNA
[2019-04-10] MEDS: SIMVASTATIN 40 MG TAB PO SCH (20:03)
[2019-04-11] MEDS ORDERED: FUROSEMIDE 20 MG in SYRINGE 0 ML IV ONE (06:15)
[2019-04-11 06:28] LABS: Hematocrit (blood only) 25.5 % (37-47); Hemoglobin 8.4 g/dL (12.0-16.0); Mean Corpuscular Hgb Conc 32.9 g/dL (32-36); Mean Corpuscular Volume 92.1 fL (80-100); Mean Platelet Volume 8.9 fL (7.4-10.4); Platelet Count 192 K/uL (130-400); RDW Coefficient of Variation 14.7 % (11.5-14.5); RDW Standard Deviation 50.1 fL (36.4-46.3); Red Blood Count 2.77 M/uL (4.2-5.4); White Blood Count 6.05 K/uL (4.8-10.8)
[2019-04-11] MEDS: ACETAMINOPHEN 325 MG TAB PO SCH ×3 (06:39→18:13)
[2019-04-11] MEDS: PIPERACILLIN/TAZOBACTAM 3.375 GM in DEXTROSE 5% 100 ML IV SCH ×3 (06:39→21:15)
[2019-04-11 06:42] LABS: Prothrombin Time 19.6 Seconds (9.0-12.0)
--- NOTE | 2019-04-11 07:03 | Progress Note ---
DATE: 04/11/2019 Ms. Link was seen this morning on 04/11/2019. She looks better. She sounds better. She is ambulating in the hallway. She is still on 2 liters with 97% saturation. She slept comfortably. She ate well and is urinating. She feels her swelling has decreased. I am going to give her 1 more dose of extra Lasix today. We will watch her in telemetry for 1 more day and if she does not go into atrial fibrillation, we will move her to a regular floor and start making discharge plans.
[2019-04-11 07:05] LABS: BUN Creatinine Ratio 23.9 (10-20); Calcium 8.3 mg/dl (8.5-10.1); Creatinine Clr Calc Pharmacy 31.6 ml/min; Est GFR (African American) 34.9; Est GFR (Non-African American) 30.1; Potassium 3.5 mmol/L (3.5-5.1)
[2019-04-11 07:10] LABS: Ferritin 637.4 ng/ml (8-388)
--- NOTE | 2019-04-11 07:43 | XRay Report ---
XR chest 1V portable CLINICAL HISTORY: lung resection COMPARISON STUDY: Chest radiograph April 08, 2019. Chest CT April 09, 2019. FINDINGS: Left lung is clear. Right lung volume loss is again noted. A small right hydropneumothorax is present. Extensive right mid and lower lung airspace opacity persists. The appearance is similar t o chest CT of April 09, 2019. IMPRESSION: 1. No significant change in a small right hydropneumothorax. 2. Persistent extensive right lung airspace opacity which favors pneumonia. Electronically signed by: Gerardo Pires M.D. 04/11/2019 7:42 AM
[2019-04-11 08:12] LABS: Folate (Folic Acid) 7.2 ng/ml (>5.38)
[2019-04-11] MEDS: CARVEDILOL 25 MG TAB PO SCH ×2 (09:05→21:14)
[2019-04-11] MEDS: FERROUS SULFATE 325 MG TAB PO SCH (09:05)
[2019-04-11] MEDS: HydrALAZINE TAB 50 MG TAB PO SCH ×2 (09:05→21:11)
[2019-04-11] MEDS: FUROSEMIDE 20 MG TAB PO SCH (09:06)
[2019-04-11] MEDS: FLUTICASONE INH SCH (09:07)
[2019-04-11] MEDS: TIOTROPIUM BROMIDE 5 PUFF/90 MCG INH INH SCH ×2 (09:07→21:12)
[2019-04-11] MEDS: VILANTEROL INH SCH (09:07)
[2019-04-11] MEDS: LIDOCAINE 5% 1 PATCH TD SCH (09:17)
[2019-04-11] MEDS: DOCUSATE SODIUM 100 MG CAP PO SCH ×2 (09:17→21:15)
--- NOTE | 2019-04-11 13:06 | Surgery Progress Note ---
Date of Service April 11, 2019 Assessment & Plan (1) Squamous cell lung cancer: -pt. is s/p RLL on 04/03/19 -continue analgesics with tylenol -no narcotics due to lethargy that was noted several days ago (lethargy has markedly improved) -no NSAIDs due to CKD -encourage use of IS, cough, deep breathing, as well as ambulation -suspected pulmonary infection may be a contributing factor; -pt. is receiving IV zosyn -CKD stable -post-op afib (pt. in NSR at yoav eof my exam) -cardiology input noted -diuresis with lasix in place and pt. nearly (-) 1 Liter last 24 hours and weight is down approx. 1.2 kg -coreg to continue -pt. lives alone and may require acute rehab: -PT. & OT evaluations noted -case mgt. input noted and referral to [facility] in place (will discuss with case mgt. once pt. felt to be more stable for d/c) -lovenox was in place for DVT prevention, bt now stopped as coumadin resumed and INR 2.0 Subjective Pt. notes she is doing better this morning than yesterday. Her breathing is more comfortable. no CP. She has ambulated short distances in hallway. She is tolerating diet without N/V and is urinating without difficulty. Discussed with RN a bedside. She notes an episode of a-fib last night but converted to NSR. No additional concerns voiced at this time. Physical Exam Constitutional: well developed and well nourished; no acute distress Respiratory: BS are decreased at bases R>L; no wheezing or use of accessory muscles Cardiovascular: Rate/Rhythm: regular rate and regular rhythm Gastrointestinal (Abdomen): soft and non-tender Musculoskeletal: no calf tenderness; 2+ LE edema noted bilaterally Neurologic: -pt. is alert and oriented x 3; she moves all extremities without noted deficits Results & Data Vital Signs (Past 12 Hours) Vital Signs Temp Pulse Pulse Resp BP BP Pulse Ox 04/11/19 10:49 36.6 C 68 18 144/84 H 98 04/11/19 07:15 75 04/11/19 07:03 36.9 C 75 18 137/58 L 95 04/11/19 06:40 133/65 04/11/19 02:45 36.6 C 73 18 117/51 L 96
[2019-04-11] MEDS: WARFARIN SOD 2 MG TAB PO SCH (16:54)
[2019-04-11] MEDS: SIMVASTATIN 40 MG TAB PO SCH (21:14)
[2019-04-12] MEDS: ACETAMINOPHEN 325 MG TAB PO SCH ×5 (01:38→23:26)
[2019-04-12] MEDS: PIPERACILLIN/TAZOBACTAM 3.375 GM in DEXTROSE 5% 100 ML IV SCH ×3 (06:27→22:45)
--- NOTE | 2019-04-12 07:00 | XRay Report ---
XR chest 1V portable HISTORY: 78 years-old Female lobectomy follow-up study in a patient with prior right-sided lobectomy COMPARISON: Chest radiograph 04/11/2019 TECHNIQUE: Portable AP view of the chest FINDINGS: Small right-sided hydropneumothorax redemonstrated. Right lung volume loss with right midlung and rig ht lung base opacities redemonstrated. Heart is mildly enlarged. Left lung is clear. Calcification of the thoracic aortic arch. Degenerative changes of the shoulders and spine. Vascular calcifications a re noted. IMPRESSION: 1. Unchanged small right-sided hydropneumothorax. 2. Persistent right midlung and right lung base opacities suggestive of ongoing pneumonia. The above report was generated using voice recognition software. It may contain grammatical, syntax o r spelling errors. Electronically signed by: Go Huerta M.D. 04/12/2019 6:58 AM
[2019-04-12 07:39] LABS: INR 1.9 (0.9-1.1)
[2019-04-12 07:48] LABS: Est GFR (African American) 32.7; Est GFR (Non-African American) 28.2
[2019-04-12] MEDS ORDERED: FUROSEMIDE 20 MG in SYRINGE 0 ML IV ONE (08:00)
[2019-04-12] MEDS: CYANOCOBALAMIN (VITAMIN B-12) 100 MCG TABLET PO SCH (08:19)
[2019-04-12] MEDS: CARVEDILOL 25 MG TAB PO SCH ×2 (08:19→20:50)
[2019-04-12] MEDS: FERROUS SULFATE 325 MG TAB PO SCH (08:20)
[2019-04-12] MEDS: VILANTEROL INH SCH (08:20)
[2019-04-12] MEDS: FLUTICASONE INH SCH (08:20)
[2019-04-12] MEDS: TIOTROPIUM BROMIDE 5 PUFF/90 MCG INH INH SCH ×2 (08:20→20:54)
[2019-04-12] MEDS: HydrALAZINE TAB 50 MG TAB PO SCH ×2 (08:21→20:54)
[2019-04-12] MEDS: LIDOCAINE 5% 1 PATCH TD SCH (08:21)
[2019-04-12] MEDS: DOCUSATE SODIUM 100 MG CAP PO SCH ×2 (08:21→20:55)
--- NOTE | 2019-04-12 10:21 | Cardiology Progress Note ---
Date of Service April 12, 2019 Assessment & Plan (1) Paroxysmal atrial fibrillation: 2. RLL SCC post lobectomy 3. Diastolic heart failure/history of stress-induced cardiomyopathy 4. Coronary artery disease--RCA with 80% stenosis managed medically 11/2015 5. Hypertension--reasonably controlled on current regimen 6. Recurrent pulmonary emboli--on anticoagulation indefinitely 7. Peripheral vascular disease status post AAA repair--followed by Dr. Jolly 8. Anemia 9. CKD Brief intermittent episodes of asymptomatic atrial ectopy. No recurrent sustained AF. Mild residual systemic venous congestion on exam. -- Continue current coreg 25mg bid. If concern for worsened bronchospasm could consider transition to metoprolol but would likely need increased antihypertensives with change. -- continue anticoagulation with coumadin indefinitely -- Agree with IV diuretics today. Reassess volume status in AM. Will continue to follow. Subjective Patient reports feeling somewhat better today. States breathing improved. No palpitations or presyncope. No chest pain. Telemetry reviewed -- primarily sinus ~70s. Brief (seconds) of atrial ectopy/AF - asymptomatic with events. Review of Systems Review of Systems: All systems reviewed & are unremarkable except as noted in HPI & below Physical Exam Constitutional: breathing comfortably on nasal cannula Eyes: + anicteric sclerae Neck: No JVD Respiratory: normal respiratory effort; no respiratory distress Cardiovascular: Rate/Rhythm: regular rate (occasional episodes of ectopy) Heart Sounds: no murmur Vessels: radial pulses present Extremities: + edema (1-2+ bilateral to ankles) Chest (Breasts): Additional Comments: chest incisions intact without erythema Gastrointestinal (Abdomen): Inspection/Auscultation: abdomen not distended Percussion/Palpation: abdomen soft; abdomen nontender Skin: no rashes, warm and dry Neurologic: moves all extremities Psychiatric: A+Ox3, euthymic affect Results & Data Vital Signs (Past 12 Hours) Vital Signs Temp Pulse Pulse Resp BP Pulse Ox 04/12/19 07:01 36.8 C 81 19 150/62 H 94 04/12/19 04:00 36.8 C 75 18 124/71 96 04/12/19 00:00 73 04/11/19 23:58 36.8 C 80 19 134/55 L 96
--- NOTE | 2019-04-12 10:55 | Surgery Progress Note ---
Date of Service April 12, 2019 Assessment & Plan (1) Squamous cell lung cancer: -pt. is s/p RLL on 04/03/19 -pt. noted to have a right pleural effusion on post-op imaging -will repeat CXR in am -continue analgesics with tylenol -no narcotics due to lethargy that was noted several days ago (lethargy has markedly improved with cessation of narcotics) -no NSAIDs due to CKD -encourage use of IS, coughing, deep breathing, as well as ambulation -suspected pulmonary infection may be a contributing factor; -pt. is receiving IV zosyn (day 5 out of planned 7) -CKD stable -post-op afib (pt. again in NSR at time of my exam) -cardiology input noted: -sustained a-fib not felt to be present, so will continue current dose of coreg -contine diuresis with lasix (over past 24-48 hour her fluid balance has been (-), but with increase of weight today by approx. 0.6 kg will change lasix to IV today -will check electrolytes tomorrow -pt. lives alone and may require acute rehab: -PT. & OT evaluations noted -case mgt. input noted and referral to [facility] in place (will d iscuss with case mgt. once pt. felt to be more stable for d/c) -lovenox was in place for DVT prevention, bt now stopped as coumadin resumed and INR 2.0 Subjective Patient reports she continues to improve and feels better today than yesterday.what better. She notes her breathing has slightly improved and she was able to ambulate in hallway a litter more last night than what she could previously do. No CP. No palpitations. She notes her apatite has improved and she is voiding without difficulty. Discussed with RN and she notes only a short burst of a-fib earlier this morning. Physical Exam Constitutional: well developed and well nourished; no acute distress Respiratory: BS are decreased at right base. No wheezing or use of accessory muscles. Cardiovascular: Rate/Rhythm: regular rate and regular rhythm Musculoskeletal: no calf tenderness; bilateral LE edema remans present, but is less than what was noted yesterday Results & Data Vital Signs (Past 12 Hours) Vital Signs Temp Pulse Pulse Resp BP Pulse Ox 04/12/19 07:40 85 04/12/19 07:01 36.8 C 81 19 150/62 H 94 04/12/19 04:00 36.8 C 75 18 124/71 96 04/12/19 00:00 73 04/11/19 23:58 36.8 C 80 19 134/55 L 96
--- NOTE | 2019-04-12 15:43 | Hospitalist Progress Note ---
Date of Service April 12, 2019 Assessment & Plan (1) Squamous cell lung cancer: S/p right lower lobectomy on 04/[address] Roper. Found to have T1cN0 squamous cell carcinoma. - Post-operative care per primary team - For pain control, I added a lidocaine patch at the surgical site to help avoid opiates - Appears to be helping - Recovering well; walking more. Still on nasal cannula O2, but weaning down. (2) Anemia: Baseline hgb ~10-12. Remained ~10 after surgery, then down to 9 on 04/08 and down to 7.7 on 04/10. - No sign of bleeding externally or from GI tract (no melena or hematochezia, no hematemesis) - Iron studies showed anemia of chronic disease. - Folate normal - B12 was low (168) -> Started B12 supplement on 04/12. Please discharge on cyanocobalamin 100 mcg PO daily with PCP follow up. (3) Paroxysmal atrial fibrillation: Episode occurred in the evening of 04/09 and returned to sinus rhythm by 04/10. On 04/12, she is bouncing back and forth with short runs of afib. - Seen by cardiology; already on anticoagulation for her recurrent PEs - If she goes back and forth, could consider further rate or rhythm control - Evaluated on 04/12 without need for change on her carvedilol 25mg BID (4) Pneumonia: CT chest on 04/09 showed likely right lung pneumonia. - MRSA swab on 04/09 was negative - Continue Zosyn per primary team (5) Confusion: As discussed by thoracic surgery note, likely due to opiate medications along with possible infectious process. - Continue abx as per primary team for pneumonia - Avoid opiates if able - Presently alert and responsive; no need for further investigation unless the patient decompensates (6) Hypertension: Well-controlled over the last few days. - Continue home carvedilol, hydralazine, Lasix (7) COPD (chronic obstructive pulmonary disease): Minimal shortness of breath today, though she did have some desaturations with walking with PT. - Continue home Breo, Spiriva, and PRN albuterol (8) Recurrent pulmonary embolism: In 12/2013. - On lifelong anticoagulation (9) DVT prophylaxis: Warfarin for her prior VTEs Subjective Doing well. Breathing easily. Was up and walking around. Happy with how things are going. Review of Systems Review of Systems: All systems reviewed & are unremarkable except as noted in HPI & below Physical Exam Constitutional: WD/WN, vitals as above Eyes: EOM intact bilaterally; no conjunctival abnormality ENMT: external ear and nose normal, oropharynx normal Neck: trachea midline, no thyromegaly normal visual inspection Respiratory: normal respiratory effort, lungs clear to auscultation no respiratory distress Cardiovascular: RRR, no murmur, no edema Gastrointestinal (Abdomen): Inspection/Auscultation: abdomen normal to inspection; abdomen not distended Musculoskeletal: no cyanosis or clubbing, extremities motor strength 5/5 Skin: no rashes, warm and dry Neurologic: moves all extremities and awake Psychiatric: Orientation: alert, oriented to person and cooperative Results & Data Vital Signs (Past 12 Hours) Vital Signs Temp Pulse Pulse Resp BP BP Pulse Ox 04/12/19 15:22 36.7 C 77 18 149/65 H 96 04/12/19 11:28 94 04/12/19 11:07 36.6 C 112 H 19 132/63 95 04/12/19 07:40 85 04/12/19 07:01 36.8 C 81 19 150/62 H 94 04/12/19 04:00 36.8 C 75 18 124/71 96 PG Care Time/CCT Total # of Minutes Spent Total Time Spent with Patient: Total time spent is greater than 50% in coordination of care (as documented) at patient's floor/unit and/or counseling patient:
[2019-04-12] MEDS ORDERED: WARFARIN SOD 1 MG TAB PO SCH (16:00)
[2019-04-12] MEDS: SIMVASTATIN 40 MG TAB PO SCH (20:53)
[2019-04-13] MEDS: PIPERACILLIN/TAZOBACTAM 3.375 GM in DEXTROSE 5% 100 ML IV SCH ×3 (06:19→21:10)
[2019-04-13] MEDS: ACETAMINOPHEN 325 MG TAB PO SCH ×5 (06:19→23:51)
[2019-04-13 06:26] LABS: Prothrombin Time 19.4 Seconds (9.0-12.0)
[2019-04-13 06:39] LABS: BUN Creatinine Ratio 22.4 (10-20); Calcium 8.4 mg/dl (8.5-10.1); Creatinine Clr Calc Pharmacy 32.3 ml/min; Est GFR (African American) 35.7; Est GFR (Non-African American) 30.8; Potassium 3.9 mmol/L (3.5-5.1)
--- NOTE | 2019-04-13 06:59 | XRay Report ---
XR chest 1V portable CLINICAL HISTORY: 78 years-old Female presenting with effusion. TECHNIQUE: Portable upright AP view of the chest was obtained. COMPARISON: 04/12/2019. FINDINGS: Atherosclerosis of the aortic arch. Cardiac silhouette normal in size. Persistent diffuse right lung opacity with a mid to basilar predominance. Moderate to large right pleural effusion is unchanged. Re ported right pneumothorax is not appreciated on this radiograph. Left lung and pleural space clear. O steopenia. IMPRESSION: 1. No pneumothorax appreciated on this radiograph. 2. Persistent moderate to large right pleural effusion with extensive right lung infiltrate. Likely parapneumonic effusion in the setting of pneumonia. This is unchanged. Electronically signed by: Jay Infante M.D. 04/13/2019 6:58 AM
[2019-04-13] MEDS ORDERED: FUROSEMIDE 20 MG in SYRINGE 0 ML IV ONE (08:00)
--- NOTE | 2019-04-13 08:01 | Surgery Progress Note ---
Date of Service April 13, 2019 Assessment & Plan (1) Squamous cell lung cancer: -pt. is s/p RLL on 04/03/19 -pt. noted to have a right pleural effusion on post-op imaging which is again demonstrated on CXR today -will monitor and consider thoracentesis if this gets worse -continue analgesics with tylenol -no narcotics due to lethargy that was noted several days ago (lethargy has markedly improved with cessation of narcotics) -no NSAIDs due to CKD -encourage use of IS, coughing, deep breathing, as well as ambulation -suspected pulmonary infection may be a contributing factor; -pt. is receiving IV zosyn (day 6 out of planned 7) -CKD remains stable -post-op afib (pt. in NSR at time of my exam) -cardiology input noted: -sustained a-fib not felt to be present, so will continue current dose of coreg -will await theie input today and transfer to med/surg if they do not feel tele monitoring is needed -continue diuresis with lasix; will use IV form again this morning -pt. lives alone and may require acute rehab: -PT. & OT evaluations noted -the pt. wishes to return directly home so will monitor her progress and address this at a tie closer to d/c -lovenox was in place for DVT prevention, bt now stopped as coumadin resumed and INR 2.0 Subjective Patient reports she continues to improve. She notes her breathing is comfortable and she continues to ambulate in hallway. No CP. No palpitations. She notes her apatite continues to improved and she is voiding without difficulty. Discussed with RN--pt. notes to have an episode of afib this am with spontaneous return to NSR. No other issues noted. Physical Exam Constitutional: well developed and well nourished; no acute distress Respiratory: normal respiratory effort; no respiratory distress and no labored breathing BS are decrease at right base Cardiovascular: Rate/Rhythm: regular rate and regular rhythm Musculoskeletal: no calf tenderness; LE edema continues to decrease bilaterally Neurologic: -pt. is alert and oriented x 3; she moves all extremities without noted deficits Results & Data Vital Signs (Past 12 Hours) Vital Signs Temp Pulse Pulse Resp BP BP Pulse Ox 04/13/19 07:47 36.3 C L 89 19 118/62 93 04/13/19 03:53 36.6 C 78 19 129/55 L 95 04/12/19 23:45 36.4 C L 79 19 127/68 96 04/12/19 21:35 76
[2019-04-13] MEDS: FERROUS SULFATE 325 MG TAB PO SCH (08:10)
[2019-04-13] MEDS: HydrALAZINE TAB 50 MG TAB PO SCH ×2 (08:10→20:51)
[2019-04-13] MEDS: CYANOCOBALAMIN (VITAMIN B-12) 100 MCG TABLET PO SCH (08:11)
[2019-04-13] MEDS: CARVEDILOL 25 MG TAB PO SCH ×2 (08:11→20:51)
[2019-04-13] MEDS: LIDOCAINE 5% 1 PATCH TD SCH (08:12)
[2019-04-13] MEDS: TIOTROPIUM BROMIDE 5 PUFF/90 MCG INH INH SCH ×2 (08:12→21:27)
[2019-04-13] MEDS: VILANTEROL INH SCH (08:14)
[2019-04-13] MEDS: FLUTICASONE INH SCH (08:14)
[2019-04-13] MEDS: DOCUSATE SODIUM 100 MG CAP PO SCH ×2 (09:54→20:52)
[2019-04-13] MEDS ORDERED: AMIODARONE IV BOLUS / DRIP IV STA (11:34)
[2019-04-13] MEDS ORDERED: AMIODARONE / D5W 150 MG/100 ML BAG IV STA (11:34)
--- NOTE | 2019-04-13 11:34 | Cardiology Progress Note ---
Date of Service April 13, 2019 Assessment & Plan (1) Paroxysmal atrial fibrillation: The patient continues to have cycle out of atrial fibrillation in sinus rhythm in a fairly rapid fashion. Her heart rates are high when she has atrial fibrillation. Fortunately, she is asymptomatic. However, this situation seems quite common after thoracotomy. I think she would benefit from administration of amiodarone to prevent recurrent episodes and assist with rate control. It is very likely she will need therapy for a few weeks in the postoperative period. She is chronically anticoagulated with warfarin and can continue. We will need to monitor her heart rates while on amiodarone and Coreg. We can reduce her carvedilol if necessary. Subjective This morning the patient claims to be feeling well. She reported minimal discomfort at her operative site. She reports being ambulatory around her room with minimal dyspnea. She was told that she had another �episode� this morning but was unaware of any palpitations or racing heartbeats. Review of Systems Review of Systems: Per HPI Physical Exam Physical Exam: She is alert and oriented x3. Mood affect appear normal. She answered all questions appropriately. HEENT: Sclerae are anicteric. Pupils are equal and reactive to light and accommodation. Extraocular movements were intact. Neuro: Cranial nerves intact Lungs: Clear apices. No expiratory wheezing. Normal respiratory effort. Cardiac: The rhythm was regular. S1 and S2 were normal. There are no murmurs on examination. The PMI was not markedly displaced on palpation. Abdomen: The abdomen was soft and nontender. Extremities: Patient has bilateral radial pulses that are equal in intensity. There is no evidence cyanosis or clubbing. Skin: There are no rashes noted on examination today but she does have a lot of ecchymosis. Results & Data Vital Signs (Past 12 Hours) Vital Signs Temp Pulse Pulse Resp BP BP Pulse Ox 04/13/19 11:22 36.7 C 94 H 18 137/64 96 04/13/19 09:32 04/13/19 08:00 86 04/13/19 07:47 36.3 C L 89 19 118/62 93 04/13/19 03:53 36.6 C 78 19 129/55 L 95 04/12/19 23:45 36.4 C L 79 19 127/68 96 Pulse Ox 04/13/19 11:22 04/13/19 09:32 93 04/13/19 08:00 04/13/19 07:47 04/13/19 03:53 04/12/19 23:45 Laboratory Results Abnormal Lab Results 04/13/19 04/13/19 06:00 06:00 PT 19.4 H INR 2.0 H Sodium 138 Potassium 3.9 Chloride 105 Carbon Dioxide 28 Anion Gap 5.0 BUN 35 H Creatinine 1.57 H Est Cr Clr Drug Dosing 32.3 Est GFR ( Amer) 35.7 Est GFR (Non-Af Amer) 30.8 BUN/Creatinine Ratio 22.4 H Glucose 97 Calcium 8.4 L ECG Additional Comments: Frequent episodes of atrial fibrillation with rapid transit ion between high heart rates and sinus.
[2019-04-13] MEDS ORDERED: AMIODARONE / D5W 360 MG/200 ML BAG IV SCH (11:45)
[2019-04-13] MEDS: WARFARIN SOD 2 MG TAB PO SCH (16:41)
[2019-04-13] MEDS: AMIODARONE / D5W 360 MG/200 ML BAG IV SCH ×2 (18:00→20:44)
[2019-04-13] MEDS: SIMVASTATIN 40 MG TAB PO SCH (20:52)
[2019-04-14] MEDS: PIPERACILLIN/TAZOBACTAM 3.375 GM in DEXTROSE 5% 100 ML IV SCH ×3 (06:50→21:44)
[2019-04-14] MEDS: ACETAMINOPHEN 325 MG TAB PO SCH ×4 (06:50→23:26)
[2019-04-14 07:19] LABS: INR 2.2 (0.9-1.1); Prothrombin Time 21.4 Seconds (9.0-12.0)
[2019-04-14 07:27] LABS: Est GFR (African American) 33.4; Est GFR (Non-African American) 28.8
[2019-04-14] MEDS: TIOTROPIUM BROMIDE 5 PUFF/90 MCG INH INH SCH ×2 (08:00→21:05)
[2019-04-14] MEDS: AMIODARONE / D5W 360 MG/200 ML BAG IV SCH (08:00)
[2019-04-14] MEDS: FERROUS SULFATE 325 MG TAB PO SCH (08:01)
[2019-04-14] MEDS: CARVEDILOL 25 MG TAB PO SCH (08:02)
[2019-04-14] MEDS: HydrALAZINE TAB 50 MG TAB PO SCH ×2 (08:02→21:05)
[2019-04-14] MEDS: LIDOCAINE 5% 1 PATCH TD SCH (08:03)
[2019-04-14] MEDS: VILANTEROL INH SCH (08:04)
[2019-04-14] MEDS: FLUTICASONE INH SCH (08:04)
[2019-04-14] MEDS: DOCUSATE SODIUM 100 MG CAP PO SCH ×2 (09:22→21:05)
--- NOTE | 2019-04-14 10:03 | Cardiology Progress Note ---
Date of Service April 14, 2019 Assessment & Plan (1) Paroxysmal atrial fibrillation: She continues to have frequent atrial ectopy. I would stop short of calling this atrial fibrillation as the predominant rhythm still appears to be sinus with simply frequent and consecutive atrial ectopy. This is still likely related to her surgery. I think we can continue the plan developed yesterday which is amiodarone for several weeks postoperatively. Overall heart rates appear reasonable. We will need to monitor her for evidence of bradycardia and reduce her carvedilol as necessary. I think we can switch her to oral amiodarone today. (2) Coronary artery disease: No current symptoms to suggest coronary insufficiency or angina. She does have some dyspnea with exertion which is likely related to her primary lung disease and recent surgery. (3) AAA (abdominal aortic aneurysm): (4) Cardiomyopathy: This was transient. Volume status is difficult to assess. Her diuretic appears to be on hold. According to the nursing notes her intake and output is relatively matched over the past few days. However, I think I would have a low threshold for a dose of diuretic. Subjective This morning patient complained primarily of some discomfort in the lower right chest area. This seemed to be around her operative site. She states that this has been present for few days but perhaps is worse currently. Also appears to be worse with sitting down. She has some general sensation appear right us. This was better yesterday and worse today. She has been ambulatory with some dyspnea. Review of Systems Review of Systems: Per HPI Physical Exam Physical Exam: She is alert and oriented x3. Mood affect appear normal. She answered all questions appropriately. HEENT: Sclerae are anicteric. Pupils are equal and reactive to light and accommodation. Extraocular movements were intact. Neuro: Cranial nerves intact Lungs: Normal respiratory effort. Some reduced breath sounds at the right base. No expiratory wheezing. Cardiac: The rhythm was regular with frequent ectopy. S1 and S2 were normal. There are no murmurs on examination. The PMI was not markedly displaced on palpation. Results & Data Vital Signs (Past 12 Hours) Vital Signs Temp Pulse Resp BP BP Pulse Ox Pulse Ox 04/14/19 06:59 36.7 C 42 L 18 128/49 L 97 04/14/19 03:52 36.8 C 125 H 19 133/62 96 04/13/19 23:44 36.6 C 62 18 135/56 L 96 04/13/19 22:31 94 Laboratory Results Abnormal Lab Results 04/14/19 04/14/19 06:49 06:49 PT 21.4 H INR 2.2 H Creatinine 1.66 H Est Cr Clr Drug Dosing 31.0 Est GFR ( Amer) 33.4 Est GFR (Non-Af Amer) 28.8
[2019-04-14] MEDS ORDERED: FUROSEMIDE 20 MG in SYRINGE 0 ML IV ONE ×2 (11:00→19:00)
--- NOTE | 2019-04-14 11:02 | Surgery Progress Note ---
Date of Service April 14, 2019 Assessment & Plan (1) Squamous cell lung cancer: -pt. is s/p RLL on 04/03/19 -pt. noted to have a right pleural effusion on post-op imaging: -repeat CXR tomorrow am -continue analgesics with tylenol -no narcotics due to lethargy that was noted several days ago (lethargy has markedly improved with cessation of narcotics) -no NSAIDs due to CKD -encourage use of IS, coughing, deep breathing, as well as ambulation -suspected pulmonary infection may be a contributing factor: -pt. is receiving IV zosyn (7 days planned--discussed with pharmacy and last dose will be tomorrow's am dose) -CKD remains stable -post-op afib -cardiology input noted and discussed with Dr. Arevalo this am: -due to recurrent run's of a-fib/ectopy, amiodarone was initiated (plan to convert to oral today) -continue current dose of coreg with plans to decrease if bradycardia ensues with concurrent use of amiodarone -continue diuresis with lasix (weight is noted to be up almost 3 kg this am and edema appears worse so will give BID IV dosing today) -pt. lives alone: -PT. & OT evaluations noted and rehab recommended, however the pt. wishes to return directly home so will monitor her progress and address this at a tmie closer to d/c -due to rash/itching will order low dose oral benadryl for symptomatic relief -lovenox was in place for DVT prevention, but now stopped as coumadin resumed and INR > 2.0 Subjective Pt. state she feels about the same as yesterday. No worsening SOB. She notes a slight rash with itching. No N/V and tolerating diet. She has been voiding without difficulty. She continues to ambulate in hallway with walker. Discussed with RN and other than rash/itching no other concerns noted. Physical Exam Constitutional: well developed and well nourished; no acute distress Respiratory: BS are decreased at right base. No wheezing or use of accessory muscles. Cardiovascular: Rate/Rhythm: regular rate and regular rhythm Gastrointestinal (Abdomen): Percussion/Palpation: abdomen soft Musculoskeletal: no caf tenderness; bilateral LE edema has increase since yesterday Skin: -some erythema noted but no discrete maculopapular rash noted Neurologic: pt. is alert and oriented x 3 with no focal deficits Results & Data Vital Signs (Past 12 Hours) Vital Signs Temp Pulse Resp BP BP Pulse Ox 04/14/19 10:33 36.3 C L 43 L 17 130/44 L 98 04/14/19 06:59 36.7 C 42 L 18 128/49 L 97 04/14/19 03:52 36.8 C 125 H 19 133/62 96 04/13/19 23:44 36.6 C 62 18 135/56 L 96
--- NOTE | 2019-04-14 12:18 | Hospitalist Progress Note ---
Date of Service April 14, 2019 Assessment & Plan (1) Squamous cell lung cancer: S/p right lower lobectomy on 04/[address] Roper. Found to have T1cN0 squamous cell carcinoma. - Post-operative care per primary team - For pain control, I added a lidocaine patch at the surgical site to help avoid opiates - Recovering well; walking more. Still on nasal cannula O2, but weaning down. (2) Anemia: Baseline hgb ~10-12. Remained ~10 after surgery, then down to 9 on 04/08 and down to 7.7 on 04/10. - No sign of bleeding externally or from GI tract (no melena or hematochezia, no hematemesis) - Iron studies showed anemia of chronic disease. - Folate normal - B12 was low (168) -> Started B12 supplement on 04/12. Please discharge on cyanocobalamin 100 mcg PO daily with PCP follow up. (3) Paroxysmal atrial fibrillation: Episode occurred in the evening of 04/09 and returned to sinus rhythm by 04/10. On 04/14, she is bouncing back and forth with short runs of afib and also having atrial ectopy. - Seen by cardiology; already on anticoagulation for her recurrent PEs - Continue amiodarone gtt per cardiology instructions - HR down to 40-50 on 04/14; BP stable at 130/45 - Discussed with cardiology & dropped carvedilol to 12.5 mg BID (4) Pneumonia: CT chest on 04/09 showed likely right lung pneumonia. - MRSA swab on 04/09 was negative - Continue Zosyn per primary team - Started on 04/08; given normalized WBC, no fevers, could probably finish abx on 04/15. (5) Confusion: Episodes of confusion on 04/07 & 04/08. As discussed by thoracic surgery note, likely due to opiate medications along with possible infectious process. - Continue abx as above - Avoid opiates if able - Presently alert and responsive; no need for further investigation unless the patient decompensates (6) Hypertension: Well-controlled over the last few days. - Continue home carvedilol, hydralazine, Lasix - Adjustments to meds as above for afib (7) COPD (chronic obstructive pulmonary disease): Minimal shortness of breath today, though she did have some desaturations with walking with PT. - Continue home Breo, Spiriva, and PRN albuterol - Some of this is likely fluid overload; getting extra Lasix by primary team (8) Recurrent pulmonary embolism: In 12/2013. - On lifelong anticoagulation (9) DVT prophylaxis: Warfarin for her prior VTEs Subjective A little more fatigued today. Some increased shortness of breath. Review of Systems Review of Systems: All systems reviewed & are unremarkable except as noted in HPI & below Physical Exam Constitutional: WD/WN, vitals as above Eyes: EOM intact bilaterally; no conjunctival abnormality ENMT: external ear and nose normal, oropharynx normal Neck: trachea midline, no thyromegaly normal visual inspection Respiratory: normal respiratory effort, lungs clear to auscultation no respiratory distress Cardiovascular: RRR, no murmur, no edema Gastrointestinal (Abdomen): Inspection/Auscultation: abdomen normal to inspection; abdomen not distended Musculoskeletal: no cyanosis or clubbing, extremities motor strength 5/5 Skin: no rashes, warm and dry Neurologic: moves all extremities and awake Psychiatric: Orientation: alert, oriented to person and cooperative Results & Data Vital Signs (Past 12 Hours) Vital Signs Temp Pulse Pulse Resp BP BP Pulse Ox 04/14/19 10:33 36.3 C L 43 L 17 130/44 L 98 04/14/19 08:00 87 04/14/19 06:59 36.7 C 42 L 18 128/49 L 97 04/14/19 03:52 36.8 C 125 H 19 133/62 96 Pulse Ox 04/14/19 10:33 04/14/19 08:00 97 04/14/19 06:59 04/14/19 03:52 PG Care Time/CCT Total # of Minutes Spent Total Time Spent with Patient: Total time spent is greater than 50% in coordination of care (as documented) at patient's floor/unit and/or counseling patient:
[2019-04-14] MEDS: CYANOCOBALAMIN (VITAMIN B-12) 100 MCG TABLET PO SCH (14:04)
[2019-04-14] MEDS: WARFARIN SOD 2 MG TAB PO SCH (15:43)
[2019-04-14] MEDS: AMIODARONE 200 MG TAB PO SCH (21:04)
[2019-04-14] MEDS: CARVEDILOL 12.5 MG TAB PO SCH (21:04)
[2019-04-14] MEDS: SIMVASTATIN 40 MG TAB PO SCH (21:06)
[2019-04-15] MEDS: ACETAMINOPHEN 325 MG TAB PO SCH ×4 (06:04→23:24)
[2019-04-15] MEDS: PIPERACILLIN/TAZOBACTAM 3.375 GM in DEXTROSE 5% 100 ML IV SCH (06:04)
[2019-04-15 06:28] LABS: BUN Creatinine Ratio 21.7 (10-20); Calcium 8.5 mg/dl (8.5-10.1); Est GFR (African American) 28.4; Est GFR (Non-African American) 24.5; Potassium 3.7 mmol/L (3.5-5.1)
[2019-04-15 06:29] LABS: INR 2.5 (0.9-1.1)
--- NOTE | 2019-04-15 06:54 | XRay Report ---
XR chest 1V portable HISTORY: 78 years-old Female effusion follow-up study in a patient with right-sided pleural effusion COMPARISON: Chest radiograph 04/13/2019 TECHNIQUE: Portable AP view of the chest FINDINGS: Persistent volume loss and postoperative changes of the right lung. No definite pneumothorax. Unchang ed right pleural effusion with right midlung and right lung base opacities. Cardiomediastinal and hil ar silhouettes are stable. Calcification of the thoracic aortic arch. Left lung is generally clear. D egenerative changes of the shoulders and spine. IMPRESSION: 1. Stable exam with unchanged right pleural effusion with right midlung and right lung base opacities . 2. No pneumothorax identified. The above report was generated using voice recognition software. It may contain grammatical, syntax o r spelling errors. Electronically signed by: Go Huerta M.D. 04/15/2019 6:53 AM
[2019-04-15] MEDS: AMIODARONE 200 MG TAB PO SCH ×2 (08:37→21:01)
[2019-04-15] MEDS: CYANOCOBALAMIN (VITAMIN B-12) 100 MCG TABLET PO SCH (08:37)
[2019-04-15] MEDS: CARVEDILOL 12.5 MG TAB PO SCH ×2 (08:38→21:00)
[2019-04-15] MEDS: FERROUS SULFATE 325 MG TAB PO SCH (08:38)
[2019-04-15] MEDS: DOCUSATE SODIUM 100 MG CAP PO SCH ×2 (08:38→21:01)
[2019-04-15] MEDS: TIOTROPIUM BROMIDE 5 PUFF/90 MCG INH INH SCH ×2 (08:38→21:01)
[2019-04-15] MEDS: HydrALAZINE TAB 50 MG TAB PO SCH (08:38)
[2019-04-15] MEDS: LIDOCAINE 5% 1 PATCH TD SCH (08:39)
[2019-04-15] MEDS: FLUTICASONE INH SCH (08:39)
[2019-04-15] MEDS: VILANTEROL INH SCH (08:39)
--- NOTE | 2019-04-15 09:51 | Progress Note ---
DATE: 04/15/2019 Amanda Link was seen today on 04/15/2019. She is now 12 days status post her thoracoscopic lobectomy and there are still a few issues. I discussed this case with Dr. Laureano Arevalo from cardiology. She is no longer in atrial fibrillation which is having multiple PACs and may be having some bigeminy. She also complained that she is more short of breath. She is also complaining of generalized itching, although I see no rash. Her incisions are clean. She has decreased breath sounds in the right base. Her x-ray shows more of an effusion. I am going to stop her Zosyn today. I also stopped her Lidoderm patch. She is having some pain, but I do not think it contributes much to this particular problem. Her INR this morning is 2.5; however, I think we can safely do a thoracentesis on her, I am going to do that later today. We are going to see if we can tap her right effusion, which is larger on x-ray today. Her heart rate is little higher, she feels a little better today. Her pulse oximetry is 96% on 2 liters. We will be back later today to perform a thoracentesis.
--- NOTE | 2019-04-15 12:39 | Cardiology Progress Note ---
Date of Service April 15, 2019 Assessment & Plan (1) Paroxysmal atrial fibrillation: 2. RLL SCC post lobectomy 3. Diastolic heart failure/history of stress-induced cardiomyopathy 4. Coronary artery disease--RCA with 80% stenosis managed medically 11/2015 5. Hypertension--reasonably controlled on current regimen 6. Recurrent pulmonary emboli--on anticoagulation indefinitely 7. Peripheral vascular disease status post AAA repair--followed by Dr. Jolly 8. Anemia 9. Acute on CKD Frequent ectopy today with periods of asymptomatic sustained AF up to 100-110s. Well perfused. Edema persists but JVP normal, CXR clear on Left Net even after diuresis yesterday. SCr up from 1.6 to 1.9. -- Appears euvolemic intravascularly -- hold on additional IV diuretics today. -- Will reassess LV function, filling pressures with echo -- continue current PO amiodarone 400mg BID -- Continue current coreg 12.5 BID. -- Supplement K to > 4 -- Follow-up on symptoms/AF burden after thoracentesis -- if remains sustained AF tomorrow may have to consider ABDOULAYE/cardioversion -- Hold evening hydralazine Will continue to follow Subjective Feeling somewhat better today. States breathing with exertion worse over the weekend. Also reports diffuse itchiness which states has been present since around time started on amiodarone. Denies any chest pain, palpitations or presyncope. Received IV lasix x2 yesterday I/O 1500/1300 Bun/SCr 35/1.66 --> 41/1.9 today CXR reviewed - right pleural effusion and opacities, LT lung clear Telemetry reviewed -- Frequent atrial ectopy with periods of sustained AF to 110s. Rare bradycardia to 40s overnight while sleeping. Review of Systems Review of Systems: All systems reviewed & are unremarkable except as noted in HPI & below Physical Exam Constitutional: no acute distress Eyes: + anicteric sclerae Respiratory: Auscultation: + breath sounds absent (Decreased breath sounds at Rt base) incision sites C/D/I Cardiovascular: Rate/Rhythm: regular rate (frequent ectopy) Heart Sounds: no murmur Vessels: no JVD Extremities: + edema (upper extremity edema, 1+ LE bilaterally) Gastrointestinal (Abdomen): Percussion/Palpation: abdomen soft; abdomen nontender Skin: ecchymosis Neurologic: moves all extremities Psychiatric: A+Ox3, euthymic affect Results & Data Vital Signs (Past 12 Hours) Vital Signs Temp Pulse Pulse Resp BP BP Pulse Ox 04/15/19 11:17 93 04/15/19 06:55 37.1 C 96 H 110 H 19 116/43 L 96 04/15/19 04:24 37.0 C 62 16 116/43 L 95
[2019-04-15] MEDS ORDERED: POTASSIUM CHLORIDE 20 MEQ TABCR PO STA (15:19)
--- NOTE | 2019-04-15 15:28 | Hospitalist Progress Note ---
Date of Service April 15, 2019 Assessment & Plan (1) Squamous cell lung cancer: S/p right lower lobectomy on 04/[address] Roper. Found to have T1cN0 squamous cell carcinoma. Pain is improved, some of which may be from pleural effusion which was drained today - Post-operative care per primary team -Thoracic surgery discontinued lidocaine patch - Recovering well; walking more. Still on nasal cannula O2, but weaning down. Now status post thoracentesis on the right on 04/15 -Follow chest x-ray (2) Anemia: Baseline hgb ~10-12. Remained ~10 after surgery, then down to 9 on 04/08 and down to 7.7 on 04/10. Now up to 8.4 on 04/11 - No sign of bleeding externally or from GI tract (no melena or hematochezia, no hematemesis) - Iron studies showed anemia of chronic disease. - Folate normal - B12 was low (168) -> Started B12 supplement on 04/12. Please discharge on cyanocobalamin 1000 mcg PO daily with PCP follow up. -Check CBC in the morning (3) Paroxysmal atrial fibrillation: Episode occurred in the evening of 04/09 and returned to sinus rhythm by 04/10. On 04/14, she is bouncing back and forth with short runs of afib and also having atrial ectopy. This is likely related to recent thoracic surgery - Seen by cardiology; already on anticoagulation for her recurrent PEs - Continue amiodarone which is now converted from drip to oral at 400 mg p.o. twice daily per cardiology instructions -Continue decreased dose of carvedilol to 12.5 mg BID-decreased for bradycardia -Cardiology notes that if has sustained atrial fibrillation, would proceed with ABDOULAYE and cardioversion -Continue Coumadin, follow INR again in the morning (4) Pneumonia: CT chest on 04/09 showed likely right lung pneumonia. - MRSA swab on 04/09 was negative She is afebrile She completed a one-week course of Zosyn (5) Confusion: Episodes of confusion on 04/07 & 04/08. As discussed by thoracic surgery note, likely due to opiate medications along with possible infectious process. Confusion is now completely resolved -She is completed treatment for pneumonia -She is no longer on any opioids (6) Hypertension: Well-controlled blood pressure readings to slightly low at times - Continue carvedilol at a reduced dose, hydralazine but cardiology recommends holding the dose for this evening, holding Lasix due to renal insufficiency (7) COPD (chronic obstructive pulmonary disease): With dyspnea likely related to pleural effusion as well as some previous volume overload Received IV Lasix on 04/14 and now with bump in creatinine-was likely intravascularly depleted - Continue home Breo, Spiriva, and PRN albuterol (8) Recurrent pulmonary embolism: In 12/2013. - On lifelong anticoagulation with Coumadin -Follow INR in the morning (9) CKD (chronic kidney disease), stage III: With CKD stage III-IV, baseline creatinine somewhere around 1.6 With mild renal insufficiency today with creatinine up to 1.90 after receiving IV Lasix yesterday -Holding all Lasix -Avoid nephrotoxins -Renally dose all medications -Follow BMP in the morning -Follow volume status-still appears volume overloaded with peripheral edema which may be due to hypoalbuminemia -Encouraged good nutrition to increase albumin (10) Mitral regurgitation: Mild eccentric MR noted on limited echo today (11) DVT prophylaxis: Warfarin for her prior VTEs Disposition-remain on PCU/telemetry Subjective Having pain in right chest wall. Ambulated group home around nurse's station today and had limiting dyspnea. Is moving her bowels. I discussed the case with cardiology today Telemetry with normal sinus rhythm, frequent ectopy with PACs and PVCs, some atrial bigeminy, rates in the 80s to 90s with a low of 33 overnight Review of Systems Review of Systems: All systems reviewed & are unremarkable except as noted in HPI & below (All of her itching is much improved today) Physical Exam Constitutional: WD/WN, vitals as above Eyes: PERRL, conjunctivae normal, anicteric sclerae ENMT: external ear and nose normal, oropharynx normal Neck: trachea midline, no thyromegaly Respiratory: normal respiratory effort Auscultation: + diminished lung sounds (At the right base) Cardiovascular: Rate/Rhythm: regular rate and regular rhythm Heart Sounds: + murmur (2/6 systolic murmur at the apex) Extremities: + edema (1-2+ pitting edema of the bilateral lower extremities to the knees) Gastrointestinal (Abdomen): normal bowel sounds, soft, nontender, no hepatosplenomegaly Musculoskeletal: Extremities: extremities normal to inspection; no cyanosis and no clubbing Skin: no rashes, warm and dry + lesion (Incisional wounds clean dry and intact in the right hemithorax) Neurologic: moves all extremities and awake; no focal motor deficits Psychiatric: A+Ox3, euthymic affect Results & Data Vital Signs (Past 12 Hours) Vital Signs Temp Pulse Pulse Resp BP BP Pulse Ox 04/15/19 12:43 36.3 C L 116 H 19 130/47 L 96 04/15/19 11:17 93 04/15/19 06:55 37.1 C 96 H 110 H 19 116/43 L 96 04/15/19 04:24 37.0 C 62 16 116/43 L 95 Laboratory Results 04/15/19 04/15/19 Range/Units 06:00 06:00 PT 24.0 H (9.0-12.0) Seconds INR 2.5 H (0.9-1.1) Sodium 140 (136-145) mmol/L Potassium 3.7 (3.5-5.1) mmol/L Chloride 104 (98-107) mmol/L Carbon Dioxide 30 (21-32) mmol/L Anion Gap 6.0 (3-11) BUN 41 H (7-18) mg/dl Creatinine 1.90 H (0.6-1.2) mg/dl Est Cr Clr Drug Dosing 27.0 ml/min Est GFR ( Amer) 28.4 Est GFR (Non-Af Amer) 24.5 BUN/Creatinine Ratio 21.7 H (10-20) Glucose 95 (70-99) mg/dl Calcium 8.5 (8.5-10.1) mg/dl PG Care Time/CCT Total # of Minutes Spent Total Time Spent with Patient: Total time spent is greater than 50% in coordination of care (as documented) at patient's floor/unit and/or counseling patient:
[2019-04-15] MEDS: WARFARIN SOD 2 MG TAB PO SCH (16:18)
--- NOTE | 2019-04-15 16:33 | XRay Report ---
XR chest 1V portable CLINICAL HISTORY: thoracentesis COMPARISON STUDY: 04/15/2019 FINDINGS: Unchanged right effusion and/or opacification right base. No postprocedural pneumothorax. L eft lung remains clear. IMPRESSION: 1. No evidence of pneumothorax. 2. Unchanging nonspecific increased density right base. The above report was generated using voice recognition software. It may contain grammatical, syntax or spelling errors. Electronically signed by: Sacha Wilson M.D. 04/15/2019 4:31 PM
[2019-04-15] MEDS: SIMVASTATIN 40 MG TAB PO SCH (21:01)
--- NOTE | 2019-04-15 21:39 | Operative Report ---
DATE OF OPERATION: 04/15/2019 PREOPERATIVE DIAGNOSIS: Postoperative effusion, right pleural cavity. POSTOPERATIVE DIAGNOSIS: Postoperative effusion, right pleural cavity. PROCEDURE PERFORMED: Ultrasound-guided thoracentesis. SURGEON: Russ Roper MD DIRECTOR OF RETAIL MERCHANDISING: SERG Brown. ANESTHESIA: Local. SPECIFICS OF PROCEDURE: With the patient in a seated position, the ultrasound was used to find a window into what appeared to be fairly complex fluid. I had a long discussion with the patient and her daughter before doing this, stating that while she is improving, my bigger concern is her need for oxygen and I was hopeful that we could drain this fluid off and it would be helpful to getting her off. With the patient in a seated position, ultrasound was used to find a window. This was prepped and draped in the usual sterile fashion. After appropriate timeout had been, a 25-gauge needle with 1% Xylocaine was used to anesthetize the skin and subcutaneous tissues about the eighth interspace in the midclavicular line posteriorly. After 25-gauge needle had been used to raise a skin wheal, a larger bore needle was used to anesthetize the skin and subcutaneous tissues and we got free-flowing serous fluid out. A guidewire was inserted through the needle and the needle removed. Triple lumen catheter was slid over the guidewire and the guidewire removed. I then drained about 50 mL of a serous fluid. We did not drain anymore. I used multiple ports on the triple lumen and pulled it out slowly. We did send this off for culture. We had no bleeding. It should be noted her INR was gapped at 2.5. I thought using the smaller bore catheter and going over the rib would be helpful. An antimicrobial dressing was placed. X-ray showed no evidence of hematoma, hemothorax or pneumothorax. She tolerated it well. I attest to the content of the Intraoperative Record and any orders documented therein. Any exception s are noted below.
[2019-04-16] MEDS: ACETAMINOPHEN 325 MG TAB PO SCH ×4 (06:04→23:29)
--- NOTE | 2019-04-16 07:19 | XRay Report ---
XR chest 1V portable CLINICAL HISTORY: effusion COMPARISON STUDY: 04/15/2019 FINDINGS: The cardiac and mediastinal contours remain stable. There is a persistent right pleural eff usion with associated right lung airspace opacities. The left lung is clear. No pneumothorax is visua lized.[ IMPRESSION: Persistent right pleural effusion with right lung airspace opacities similar to the prece ding study. Electronically signed by: Juan Newell M.D. 04/16/2019 7:18 AM
[2019-04-16 07:22] LABS: Basophils # (auto) 0.02 K/uL (0-0.2); Basophils % (auto) 0.3 %; Eosinophils # (auto) 0.42 K/uL (0-0.5); Eosinophils % (auto) 5.5 %; Hematocrit (blood only) 25.4 % (37-47); Hemoglobin 8.3 g/dL (12.0-16.0); Immature Granulocytes # (auto) 0.07 K/uL (0.00-0.02); Immature Granulocytes % (auto) 0.9 %; Lymphocytes # (auto) 0.65 K/uL (1.2-3.4); Lymphocytes % (auto) 8.5 %; Mean Corpuscular Hgb Conc 32.7 g/dL (32-36); Mean Corpuscular Volume 91.4 fL (80-100); Mean Platelet Volume 9.1 fL (7.4-10.4); Monocytes # (auto) 0.61 K/uL (0.11-0.59); Monocytes % (auto) 7.9 %; Neutrophils # (auto) 5.92 K/uL (1.4-6.5); Neutrophils % (auto) 76.9 %; Platelet Count 259 K/uL (130-400); RDW Coefficient of Variation 14.7 % (11.5-14.5); Red Blood Count 2.78 M/uL (4.2-5.4); White Blood Count 7.69 K/uL (4.8-10.8)
[2019-04-16 07:32] LABS: INR 2.4 (0.9-1.1); Prothrombin Time 22.8 Seconds (9.0-12.0)
[2019-04-16 07:53] LABS: Albumin Level 1.8 gm/dl (3.4-5.0); BUN Creatinine Ratio 24.8 (10-20); Calcium 8.7 mg/dl (8.5-10.1); Creatinine Clr Calc Pharmacy 31.9 ml/min; Est GFR (African American) 34.9; Est GFR (Non-African American) 30.1; Magnesium 2.4 mg/dl (1.8-2.4)
--- NOTE | 2019-04-16 08:24 | Surgery Progress Note ---
Date of Service April 16, 2019 Assessment & Plan (1) Squamous cell lung cancer: -pt. is s/p RLL on 04/03/19 -pt. noted to have a right pleural effusion on post-op imaging: -thoracentesis performed on 04/15/19 with only minimal fluid -gram stain showed no organisms; culture is pending -continue analgesics with tylenol -no narcotics due to lethargy that was noted several days ago (lethargy has markedly improved with cessation of narcotics) -no NSAIDs due to CKD -encourage use of IS, coughing, deep breathing, as well as ambulation -suspected pulmonary infection may be a contributing factor: -pt. is received 7 days of IV zosyn -CKD remains stable -post-op afib -cardiology help appreciated: -due to recurrent run's of a-fib/ectopy, amiodarone was initiated (now in oral form) -continue current dose of coreg at decreased dose due to bradycardia -continue diuresis with lasix (weight decreased nearly 1 kg overpast 2 days) -pt. lives alone: -PT. & OT evaluations noted and rehab recommended, however the pt. wishes to return directly home so will monitor her progress and address this at a tmie closer to d/c -due to rash/itching oral benadryl in place for symptomatic relief -lovenox was in place for DVT prevention, but now stopped as coumadin resumed and INR > 2.0 Subjective Pt. offers no complaints this am other than intermittent SOB with ambulation. No CP. She continues to ambulate in hallway. No difficulty voiding. Discussed with RN and no episodes of a-fib or bradycardia noted overnight. Physical Exam Constitutional: well developed and well nourished; no acute distress Respiratory: does not use accessory muscles BS are decreased at right base; no wheezing Cardiovascular: Rate/Rhythm: regular rate and regular rhythm Musculoskeletal: -no calf tenderness; LE edema bilaterally persists (about 2- 3+) Results & Data Vital Signs (Past 12 Hours) Vital Signs Temp Pulse Pulse Pulse Pulse Resp BP 04/16/19 07:00 36.6 C 80 18 04/16/19 03:19 37.0 C 77 16 133/54 L 04/15/19 23:48 76 04/15/19 22:48 36.8 C 75 16 BP Pulse Ox 04/16/19 07:00 161/67 H 92 04/16/19 03:19 95 04/15/19 23:48 04/15/19 22:48 135/56 L 96
[2019-04-16] MEDS: AMIODARONE 200 MG TAB PO SCH ×2 (08:38→20:14)
[2019-04-16] MEDS: DOCUSATE SODIUM 100 MG CAP PO SCH ×2 (08:38→20:14)
[2019-04-16] MEDS: FERROUS SULFATE 325 MG TAB PO SCH (08:38)
[2019-04-16] MEDS: FLUTICASONE INH SCH (08:39)
[2019-04-16] MEDS: CYANOCOBALAMIN 500 MCG TABLET (VITAMIN B-12) PO SCH (08:39)
[2019-04-16] MEDS: TIOTROPIUM BROMIDE 5 PUFF/90 MCG INH INH SCH ×2 (08:39→20:44)
[2019-04-16] MEDS: VILANTEROL INH SCH (08:39)
[2019-04-16] MEDS: CARVEDILOL 12.5 MG TAB PO SCH ×2 (08:39→20:14)
[2019-04-16] MEDS ORDERED: FUROSEMIDE 20 MG in SYRINGE 0 ML IV ONE (08:45)
--- NOTE | 2019-04-16 08:47 | Cardiology Progress Note ---
Date of Service April 16, 2019 Assessment & Plan (1) Paroxysmal atrial fibrillation: 2. RLL SCC post lobectomy 3. Diastolic heart failure/history of stress-induced cardiomyopathy 4. Coronary artery disease--RCA with 80% stenosis managed medically 11/2015 5. Hypertension--reasonably controlled on current regimen 6. Recurrent pulmonary emboli--on anticoagulation indefinitely 7. Peripheral vascular disease status post AAA repair--followed by Dr. Jolly 8. Anemia 9. Acute on CKD 10. Peripheral edema 11. Hypoalbuminemia Ectopy improved - stable sinus rhythm since around 3pm yesterday Preserved LV function on repeat echo Edema persists. No systemic venous congestion on exam. Normal CVP on echo. -- Appears euvolemic intravascularly -- hold on additional IV diuretics. Peripheral edema likely more secondary to hypoalbuminemia -- continue current PO amiodarone 400mg BID -- convert to 200mg BID in 1 week -- Continue current coreg 12.5 BID. -- Supplement K to > 4 -- Continue current antihypertensives. Will continue to follow Subjective States still had some shortness of breath yesterday with getting up to bathroom. Feeling somewhat better today. Underwent thoracentesis yesterday with removal of 50ml fluid CXR stable today I/O 830/1000 SCR 1.9 --> 1.6 Hgb 8.3 Albumin 1.8 Echo - preserved biventricular function, normal CVP Tele reviewed - frequent ectopy, bigeminy, periods of sustained AF yesterady AM. Primarily sinus rhythm with only few PACS since around 3pm yesterday. Review of Systems Review of Systems: Per HPI Physical Exam Constitutional: no acute distress Eyes: + anicteric sclerae Neck: No JVD Respiratory: normal respiratory effort; no respiratory distress A uscultation: + breath sounds absent (Decreased breath sounds at Rt base) Incision sites C/D/I Cardiovascular: Rate/Rhythm: regular rate Heart Sounds: no murmur Vessels: radial pulses present; no JVD Extremities: + edema (upper extremity edema, 2+ LE bilaterally to shins) Gastrointestinal (Abdomen): Inspection/Auscultation: abdomen not distended Percussion/Palpation: abdomen soft; abdomen nontender Skin: no rashes, warm and dry Neurologic: moves all extremities Psychiatric: A+Ox3, euthymic affect Results & Data Vital Signs (Past 12 Hours) Vital Signs Temp Pulse Pulse Pulse Pulse Resp BP 04/16/19 07:00 36.6 C 80 18 04/16/19 03:19 37.0 C 77 16 133/54 L 04/15/19 23:48 76 04/15/19 22:48 36.8 C 75 16 BP Pulse Ox 04/16/19 07:00 161/67 H 92 04/16/19 03:19 95 04/15/19 23:48 04/15/19 22:48 135/56 L 96
[2019-04-16 10:47] LABS: iSTAT Arterial Blood Gas HCO3 20 meg/L (19-24); iSTAT Arterial Blood Gas pCO2 108 mmHg (35-46); iSTAT Arterial Blood Gas pH 6.88 (7.35-7.45); iSTAT Carbon Dioxide 23 mEq/l (24-31); iSTAT Hematocrit < 15 % (37-47); iSTAT Potassium 3.7 mEq/L (3.3-5.0); iSTAT Sodium 141 mEq/L (135-144)
[2019-04-16] MEDS: WARFARIN SOD 2 MG TAB PO SCH (17:09)
--- NOTE | 2019-04-16 19:10 | Hospitalist Progress Note ---
Date of Service April 16, 2019 Assessment & Plan (1) Squamous cell lung cancer: S/p right lower lobectomy on 04/[address] Roper. Found to have T1cN0 squamous cell carcinoma. Pain is improved, some of which may be from pleural effusion which was drained on 04/15 as below - Post-operative care per primary team -Thoracic surgery discontinued lidocaine patch - Recovering well; walking more and less SOB. Remains on nasal cannula O2 at 2L but oxygenation is improving -Follow chest x-ray (2) Anemia: Baseline hgb ~10-12. Remained ~10 after surgery, then down to 9 on 04/08 and down to 7.7 on 04/10. Hgb now stable at 8.3 - No sign of bleeding externally or from GI tract (no melena or hematochezia, no hematemesis), no hemothorax on thoracentesis on 04/15 - Iron studies showed anemia of chronic disease. - Folate normal - B12 was low (168) -> Started B12 supplement on 04/12. Please discharge on cyanocobalamin 1000 mcg PO daily with PCP follow up. -follow CBC in the morning (3) Paroxysmal atrial fibrillation: Episode occurred in the evening of 04/09 and returned to sinus rhythm by 04/10. On 04/14, she was then bouncing back and forth with short runs of afib and also having atrial ectopy. This is likely related to recent thoracic surgery Now without any A-fib since brief episode on AM of 04/14 - Seen by cardiology; already on anticoagulation for her recurrent PEs - Continue amiodarone which is now converted from drip to oral at 400 mg p.o. twice daily per cardiology instructions x 1 total week, then convert to 200mg bid -Continue decreased dose of carvedilol to 12.5 mg BID-decreased for bradycardia -Continue Coumadin, follow INR again in the morning which is therapeutic at this time (4) Pneumonia: CT chest on 04/09 showed likely right lung pneumonia. - MRSA swab on 04/09 was negative She is afebrile She completed a one-week course of Zosyn Thoracentesis performed 04/15 for 50mL--> pH is quite low, but no bacteria growing on culture (5) Confusion: Episodes of confusion on 04/07 & 04/08. As discussed by thoracic surgery note, likely due to opiate medications along with possible infectious process. Confusion is now completely resolved -She has completed treatment for pneumonia -She is no longer on any opioids (6) Hypertension: Well-controlled blood pressure readings to slightly low at times that has improved since holding the hydralazine - Continue carvedilol at a reduced dose -continue holding hydralazine -continue holding Lasix due to renal insufficiency (7) COPD (chronic obstructive pulmonary disease): With dyspnea likely related to pleural effusion as well as some previous volume overload Received IV Lasix on 04/14 and then with bump in creatinine-was likely intravascularly depleted - Continue home Breo, Spiriva, and PRN albuterol (8) Recurrent pulmonary embolism: In 12/2013. - On lifelong anticoagulation with Coumadin-INR therapeutic -Follow INR in the morning (9) CKD (chronic kidney disease), stage III: With CKD stage III-IV, baseline creatinine somewhere around 1.6 With mild renal insufficiency after IV lasix given with creatinine up to 1.90 which is now improved back to baseline 1.6 with holding lasix -continue holding Lasix -Avoid nephrotoxins -Renally dose all medications -Follow BMP in the morning -Follow volume status-still appears volume overloaded with peripheral edema which may be due to hypoalbuminemia -Encouraged good nutrition to increase albumin (10) Mitral regurgitation: Mild eccentric MR noted on limited echo here (11) Edema due to hypoalbuminemia: Albumin severely low at 1.8 Contributing to anasarca -add Boost shakes tid (12) Pleural effusion: right sided post-op effusion, now s/p US which showed complex fluid collection as per Thoracic Surgery notes 50mL drained, pH 6.88, did not appear bloody as per Surgery notes, gram stain no organisms, culture no growth -follow with CXR -encouraged ambulation, IS (13) DVT prophylaxis: Warfarin for her prior VTEs Disposition-remain on PCU/telemetry Hospitalist service will continue to follow along Subjective Feeling less SOB today. Ambulated the whole way around the RN's station and felt less fatigued. Not much right sided chest pain. Afebrile. No further Afib on tele, just some brief atrial bigeminy. Says she has very low appetite and is not eating much. Is moving her bowels. Review of Systems Review of Systems: All systems reviewed & are unremarkable except as noted in HPI & below Physical Exam Constitutional: WD/WN, vitals as above Eyes: PERRL, conjunctivae normal, anicteric sclerae Neck: trachea midline, no thyromegaly Respiratory: normal respiratory effort Auscultation: + diminished lung sounds (At the right base) and + crackles (right base); no wheezes Cardiovascular: Rate/Rhythm: regular rate and regular rhythm Heart Sounds: + murmur (2/6 systolic murmur at the apex) Extremities: + edema (1-2+ pitting edema of all four extremities) Gastrointestinal (Abdomen): normal bowel sounds, soft, nontender, no hepatosplenomegaly Musculoskeletal: Extremities: extremities normal to inspection; no cyanosis and no clubbing Skin: no rashes, warm and dry + lesion (Incisional wounds clean dry and intact in the right hemithorax) Neurologic: moves all extremities and awake; no focal motor deficits Psychiatric: A+Ox3, euthymic affect Results & Data Vital Signs (Past 12 Hours) Vital Signs Temp Pulse Resp BP Pulse Ox 04/16/19 16:15 36.7 C 73 20 140/50 L 97 04/16/19 12:28 36.5 C 76 18 137/64 95 Laboratory Results 04/16/19 04/16/19 04/16/19 Range/Units 06:56 06:56 06:56 WBC 7.69 (4.8-10.8) K/uL RBC 2.78 L (4.2-5.4) M/uL Hgb 8.3 L (12.0-16.0) g/dL POC Hgb Hct 25.4 L (37-47) % POC Hct (37-47) % MCV 91.4 (80-100) fL MCH 29.9 (25-34) pg MCHC 32.7 (32-36) g/dL RDW Std Deviation 50.0 H (36.4-46.3) fL RDW Coeff of Mio 14.7 H (11.5-14.5) % Plt Count 259 (130-400) K/uL MPV 9.1 (7.4-10.4) fL Immature Gran % (Auto) 0.9 % Neut % (Auto) 76.9 % Lymph % (Auto) 8.5 % [place] % (Auto) 7.9 % Eos % (Auto) 5.5 % Baso % (Auto) 0.3 % Immature Gran # (Auto) 0.07 H (0.00-0.02) K/uL Neut # (Auto) 5.92 (1.4-6.5) K/uL Lymph # (Auto) 0.65 L (1.2-3.4) K/uL [place] # (Auto) 0.61 H (0.11-0.59) K/uL Eos # (Auto) 0.42 (0-0.5) K/uL Baso # (Auto) 0.02 (0-0.2) K/uL PT 22.8 H (9.0-12.0) Seconds INR 2.4 H (0.9-1.1) POC pH (7.35-7.45) POC pCO2 (35-46) mmHg POC pO2 (80-95) mmHg POC HCO3 (19-24) cecily/L POC Total CO2 (24-31) mEq/l POC Base Excess (-9-1.8) cecily/L Elan Test POC Sodium (135-144) mEq/L Sodium 139 (136-145) mmol/L POC Potassium (3.3-5.0) mEq/L Potassium 4.0 (3.5-5.1) mmol/L Chloride 104 (98-107) mmol/L Carbon Dioxide 29 (21-32) mmol/L Anion Gap 6.0 (3-11) BUN 40 H (7-18) mg/dl Creatinine 1.60 H D (0.6-1.2) mg/dl Est Cr Clr Drug Dosing 31.9 ml/min Est GFR ( Amer) 34.9 Est GFR (Non-Af Amer) 30.1 BUN/Creatinine Ratio 24.8 H (10-20) Glucose 94 (70-99) mg/dl Calcium 8.7 (8.5-10.1) mg/dl Magnesium 2.4 (1.8-2.4) mg/dl Albumin 1.8 L (3.4-5.0) gm/dl 04/15/19 Range/Units 16:12 WBC (4.8-10.8) K/uL RBC (4.2-5.4) M/uL Hgb (12.0-16.0) g/dL POC Hgb TNP Hct (37-47) % POC Hct < 15 L* (37-47) % MCV (80-100) fL MCH (25-34) pg MCHC (32-36) g/dL RDW Std Deviation (36.4-46.3) fL RDW Coeff of Mio (11.5-14.5) % Plt Count (130-400) K/uL MPV (7.4-10.4) fL Immature Gran % (Auto) % Neut % (Auto) % Lymph % (Auto) % [place] % (Auto) % Eos % (Auto) % Baso % (Auto) % Immature Gran # (Auto) (0.00-0.02) K/uL Neut # (Auto) (1.4-6.5) K/uL Lymph # (Auto) (1.2-3.4) K/uL [place] # (Auto) (0.11-0.59) K/uL Eos # (Auto) (0-0.5) K/uL Baso # (Auto) (0-0.2) K/uL PT (9.0-12.0) Seconds INR (0.9-1.1) POC pH 6.88 L* (7.35-7.45) POC pCO2 108 H (35-46) mmHg POC pO2 68 L (80-95) mmHg POC HCO3 20 (19-24) cecily/L POC Total CO2 23 L (24-31) mEq/l POC Base Excess -13.0 L (-9-1.8) cecily/L Elan Test NA POC Sodium 141 (135-144) mEq/L Sodium (136-145) mmol/L POC Potassium 3.7 (3.3-5.0) mEq/L Potassium (3.5-5.1) mmol/L Chloride (98-107) mmol/L Carbon Dioxide (21-32) mmol/L Anion Gap (3-11) BUN (7-18) mg/dl Creatinine (0.6-1.2) mg/dl Est Cr Clr Drug Dosing ml/min Est GFR ( Amer) Est GFR (Non-Af Amer) BUN/Creatinine Ratio (10-20) Glucose (70-99) mg/dl Calcium (8.5-10.1) mg/dl Magnesium (1.8-2.4) mg/dl Albumin (3.4-5.0) gm/dl Diagnostic Findings CXR image personally reviewed by me and agree with the following report: XR chest 1V portable CLINICAL HISTORY: effusion COMPARISON STUDY: 04/15/2019 FINDINGS: The cardiac and mediastinal contours remain stable. There is a persistent right pleural effusion with associated right lung airspace opacities. The left lung is clear. No pneumothorax is visualized.[ IMPRESSION: Persistent right pleural effusion with right lung airspace opacities similar to the preceding study. PG Care Time/CCT Total # of Minutes Spent Total Time Spent with Patient: Total time spent is greater than 50% in coordination of care (as documented) at patient's floor/unit and/or counseling patient:
[2019-04-16] MEDS: SIMVASTATIN 40 MG TAB PO SCH (20:14)
[2019-04-17] MEDS: ACETAMINOPHEN 325 MG TAB PO SCH ×2 (06:08→12:46)
[2019-04-17 06:16] LABS: Basophils # (auto) 0.01 K/uL (0-0.2); Basophils % (auto) 0.1 %; Eosinophils # (auto) 0.37 K/uL (0-0.5); Hematocrit (blood only) 24.2 % (37-47); Hemoglobin 7.9 g/dL (12.0-16.0); Immature Granulocytes # (auto) 0.04 K/uL (0.00-0.02); Immature Granulocytes % (auto) 0.5 %; Lymphocytes # (auto) 0.85 K/uL (1.2-3.4); Lymphocytes % (auto) 11.5 %; Mean Corpuscular Hgb Conc 32.6 g/dL (32-36); Mean Corpuscular Volume 91.7 fL (80-100); Mean Platelet Volume 8.4 fL (7.4-10.4); Monocytes # (auto) 0.72 K/uL (0.11-0.59); Monocytes % (auto) 9.7 %; Neutrophils # (auto) 5.43 K/uL (1.4-6.5); Neutrophils % (auto) 73.2 %; Platelet Count 249 K/uL (130-400); RDW Coefficient of Variation 14.6 % (11.5-14.5); Red Blood Count 2.64 M/uL (4.2-5.4); White Blood Count 7.42 K/uL (4.8-10.8)
[2019-04-17 06:43] LABS: Basophilic Stippling 1+
[2019-04-17 06:50] LABS: BUN Creatinine Ratio 26.2 (10-20); Calcium 8.4 mg/dl (8.5-10.1); Est GFR (Non-African American) 31.1; Magnesium 2.4 mg/dl (1.8-2.4); Potassium 4.2 mmol/L (3.5-5.1)
--- NOTE | 2019-04-17 07:58 | Cardiology Progress Note ---
Date of Service April 17, 2019 Assessment & Plan (1) Paroxysmal atrial fibrillation: 2. RLL SCC post lobectomy 3. Diastolic heart failure/history of stress-induced cardiomyopathy 4. Coronary artery disease--RCA with 80% stenosis managed medically 11/2015 5. Hypertension--reasonably controlled on current regimen 6. Recurrent pulmonary emboli--on anticoagulation indefinitely 7. Peripheral vascular disease status post AAA repair--followed by Dr. Jolly 8. Anemia 9. Acute on CKD 10. Peripheral edema 11. Hypoalbuminemia No recurrent AF on telemetry. Mobilizing fluid. Renal function stable. -- Continue amiodarone 400mg BID for 6 more days --> convert to 200mg BID in 1 week. -- Continue coreg 12.5 BID -- anticoagulation with coumadin -- Maintenance lasix 40mg daily -- Continue home antihypertensives. Follow-up with cardiology in 2-3 weeks on discharge. Subjective Reports some improvement in swelling. Did 3 laps in halls yesterday. No palpitations Review of Systems Review of Systems: All systems reviewed & are unremarkable except as noted in HPI & below Physical Exam Constitutional: no acute distress Eyes: + anicteric sclerae Respiratory: normal respiratory effort; no respiratory distress Auscultation: + breath sounds absent (Decreased breath sounds at Rt base) Cardiovascular: Rate/Rhythm: regular rate Heart Sounds: no murmur Vessels: radial pulses present; no JVD Extremities: + edema (upper extremity edema, 2+ LE bilaterally to shins) Gastrointestinal (Abdomen): Inspection/Auscultation: abdomen not distended Percussion/Palpation: abdomen soft; abdomen nontender Skin: no rashes, warm and dry Neurologic: moves all extremities Psychiatric: A+Ox3, euthymic affect Results & Data Vital Signs (Past 12 Hours) Vital Signs Temp Pulse Pulse Resp BP Pulse Ox 04/17/19 06:59 36.7 C 81 18 154/56 H 90 04/17/19 03:52 36.6 C 72 18 124/48 L 95 04/16/19 23:36 69 04/16/19 23:26 36.7 C 70 18 134/54 L 96
[2019-04-17] MEDS: VILANTEROL INH SCH (08:25)
[2019-04-17] MEDS: FLUTICASONE INH SCH (08:25)
[2019-04-17] MEDS: FERROUS SULFATE 325 MG TAB PO SCH (08:25)
[2019-04-17] MEDS: DOCUSATE SODIUM 100 MG CAP PO SCH (08:25)
[2019-04-17] MEDS: CARVEDILOL 12.5 MG TAB PO SCH (08:25)
[2019-04-17] MEDS: CYANOCOBALAMIN 500 MCG TABLET (VITAMIN B-12) PO SCH (08:25)
[2019-04-17] MEDS: TIOTROPIUM BROMIDE 5 PUFF/90 MCG INH INH SCH (08:25)
[2019-04-17] MEDS: AMIODARONE 200 MG TAB PO SCH (08:26)
[2019-04-17] MEDS: WARFARIN SOD 2 MG TAB PO SCH (17:20)
--- NOTE | 2019-04-18 00:15 | Discharge Summary ---
DISCHARGE DIAGNOSES: 1. Squamous cell carcinoma x2, right lower lobe (T1N0M0 or stage I nonsmall cell lung carcinoma). 2. New onset atrial fibrillation postoperatively. 3. Cardiomyopathy. 4. Anemia of blood loss. 5. History of pulmonary embolism. 6. Chronic obstructive pulmonary disease. 7. Hypertension. 8. Hyperlipidemia. 9. Chronic renal insufficiency. 10. Coronary artery disease. 11. Mitral regurgitation. 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 13. Takotsubo syndrome. 14. Abdominal aortic aneurysm status post repair. HOSPITAL COURSE: Amanda Link is an 78-year-old female who has a history of cigarette smoking and was found to have a mass in her right lower lobe. We had worked her up thoroughly including an endobronchial ultrasound as well as a navigational bronchoscopy for diagnosis and we did not have a diagnosis; however, this hypermetabolic mass, I felt represented a carcinoma. On 04/03/2019, patient brought to the operating room and underwent electromagnetic navigational bronchoscopy with marking of the right lower lobe area with indocyanine green dye. I then did a robotic assisted thoracoscopic wedge resection and was able to see this dye marking with fluorescence. I then did a thoracoscopic right lower lobectomy with mediastinal lymphadenectomy. The patient was extubated in the room. Really did not have much blood loss and I was happy with her; however, she struggled after surgery. She is 78 years old and quite frankly looked at after we operated on her. I was quite pleased with her hemoglobin was 10 after surgery and her x-ray looked good and even though she has been up walking in the hallway, she did not feel well and did not breathe as well as I would have liked. I was going to send her home on postop day #3 after removing her chest tube, but I decided to keep her in the hospital for another day or two and she became quite lethargic. She has some gram positive cocci in her sputum, we started on antibiotics. It appears that she may have a pneumonic process. She also lives alone. I did not feel that she was a candidate for discharge. I had daily discussions with the patient and her daughter. She has had some struggles. She was dehydrated, we had to rehydrate her. She then developed atrial fibrillation. I think that atelectasis and a poor respiratory effort contributed to this a bit. She felt better with the hydration; however, then went into atrial fibrillation on postop day #6 and moved her down to the telemetry unit. We had already started her on Coumadin. She developed quite a bit of edema in her lower legs, did not tolerate the atrial fibrillation very well, but continued to ambulate and work. We started diuresing her and she started feeling a bit better. She was seen by Dr. Laureano Arevalo. She went in and out of atrial fibrillation several times, but then finally settled down and on starting to feel better by 04/15/[address] scan which showed some infiltrative pattern in her remaining right middle lobe and right upper lobe, and also had a small amount of fluid. I decided to tap this and on 04/15/2019 I attempted an ultrasound guided thoracentesis and got about 50 mL of serous fluid. PH was low, but we did not grow any organisms. She finally settled down and on 04/17/2019, she was still on 2 liters of O2. Her saturations were quite good in the mid to upper 90s. She was ambulating in the hallway. Moving her bowels. She was eating and drinking better. She was also in better spirits. I had a long discussion with the patient and her daughter on multiple occasions and we discharged her to an extended care facility for rehabilitation for another week or so. I will see her back in the office with an x-ray. I believe she will slowly recover from this. We were quite pleased with her from an oncologic standpoint as it appears we have a surgical cure.
[2019-05-09] MEDS ORDERED: ERGOCALCIFEROL 50,000 UNITS CAP PO SCH (09:00)
== END 2019-04-17 17:22 | DRG 163 ==
LOC: ASU 10:06 → 3N 16:43 → 2E 04-09 17:41

== ENCOUNTER 2019-05-02 17:35 | Inpatient (IN) ==
[2019-05-02] MEDS ORDERED: LORazepam 0.25 MG/0.5 ML VIAL IV STA (18:08)
[2019-05-02] MEDS ORDERED: ALBUT/IPRATROP 3MG/0.5MG NEB 3 ML VIAL NEB STA (18:09)
[2019-05-02] MEDS ORDERED: FUROSEMIDE 40 MG/4 ML VIAL IV STA (18:09)
--- NOTE | 2019-05-02 18:15 | XRay Report ---
XR chest 1V portable HISTORY: 78 years-old Female sob acute shortness of breath COMPARISON: Chest radiograph 04/23/2019 TECHNIQUE: Portable AP view of the chest FINDINGS: Cardiac silhouette is mildly enlarged, unchanged. Chronic volume loss of the right lung with postoper ative changes and unchanged right pleural effusion. Decreased opacity throughout the right lung. Subs egmental left basilar opacities suggest atelectasis. There is no pneumothorax. Suggested emphysema. D egenerative changes of the shoulders and spine. IMPRESSION: 1. Unchanged right pleural effusion with persistent yet mildly decreased right lung opacities. 2. Chronic postoperative changes and volume loss of the right lung. The above report was generated using voice recognition software. It may contain grammatical, syntax o r spelling errors. Electronically signed by: Go Huerta M.D. 05/02/2019 6:14 PM
[2019-05-02 18:27] LABS: Basophils # (auto) 0.01 K/uL (0-0.2); Basophils % (auto) 0.2 %; Eosinophils # (auto) 0.25 K/uL (0-0.5); Eosinophils % (auto) 4.1 %; Hematocrit (blood only) 27.9 % (37-47); Hemoglobin 8.7 g/dL (12.0-16.0); Immature Granulocytes # (auto) 0.04 K/uL (0.00-0.02); Immature Granulocytes % (auto) 0.7 %; Lymphocytes # (auto) 0.76 K/uL (1.2-3.4); Lymphocytes % (auto) 12.6 %; Mean Corpuscular Hgb Conc 31.2 g/dL (32-36); Mean Corpuscular Volume 92.4 fL (80-100); Mean Platelet Volume 8.7 fL (7.4-10.4); Monocytes # (auto) 0.57 K/uL (0.11-0.59); Monocytes % (auto) 9.5 %; Neutrophils % (auto) 72.9 %; Platelet Count 359 K/uL (130-400); RDW Standard Deviation 51.1 fL (36.4-46.3); Red Blood Count 3.02 M/uL (4.2-5.4); White Blood Count 6.03 K/uL (4.8-10.8)
[2019-05-02 18:44] LABS: Alanine Aminotransferase 22 U/L (12-78); Albumin Level 2.2 gm/dl (3.4-5.0); Aspartate Aminotransferase 14 U/L (15-37); BUN Creatinine Ratio 20.2 (10-20); Blood Urea Nitrogen 28 mg/dl (7-18); Calcium 8.4 mg/dl (8.5-10.1); Carbon Dioxide 31 mmol/L (21-32); Chloride 102 mmol/L (98-107); Creatinine Clr Calc Pharmacy 35.4 ml/min; Est GFR (African American) 42.5; Est GFR (Non-African American) 36.7; Glucose 99 mg/dl (70-99); INR 2.6 (0.9-1.1); Magnesium 2.3 mg/dl (1.8-2.4); Potassium 4.2 mmol/L (3.5-5.1); Prothrombin Time 24.8 Seconds (9.0-12.0); Sodium 139 mmol/L (136-145)
[2019-05-02 18:49] LABS: Albumin Globulin Ratio 0.5 (0.9-2); Alkaline Phosphatase 122 U/L (45-117); Bilirubin,Total 0.3 mg/dl (0.2-1); Globulin 4.7 gm/dl (2.5-4.0); NT Pro B Type Natriuretic Pept 2903 pg/ml (0-1800); Total Protein 6.9 gm/dl (6.4-8.2); Troponin I < 0.015 ng/ml (0-0.045)
[2019-05-02 20:38] LABS: Base Excess ABG 4.6 mEq/L (-9-1.8); HCO3 ABG 30 mmol/L (19-24); Oxygen Saturation ABG 93.6 % (90-95); PCO2 ABG 52 mmHg (35-46); PO2 ABG 77 mm/Hg (80-95); pH ABG 7.38 (7.35-7.45)
[2019-05-02 20:43] LABS: Allen Test Pos (Pos)
--- NOTE | 2019-05-02 21:09 | History & Physical Report ---
Date of Service May 02, 2019 Assessment & Plan (1) Dyspnea: Patient with progressive dyspnea since surgery, acutely worsening over the last 2 days. She has multiple reasons for dyspnea to include post-operative pulmonary changes, persistent pleural effusion, COPD, CHF and deconditioning as well as uncontrolled BP, possible pulmonary edema. She has prior PE and is adequately anticoagulated on Coumadin with INR of 2.6. Low suspicion for infectious pulmonary process. Patient with elevated BNP, crackles present on exam. Pleural effusion on the right appears stable from prior. She is improved with BiPAP, minimal settings of 10/5, 35%. No respiratory distress, speaking in full sentences. SOB/CORONA most likely multifactorial, predominantly CHF -Admit to PCU -Continue BiPAP, wean as tolerated. Patient wears continuous O2, 2L at home -Blood pressure control -DuoNebs q 6 hours -Albuterol q 3 hours as needed -Lasix 40mg IV given in ER with good diuretic effect. Will continue Lasix 40mg IV daily, daily weights, strict intake/output monitoring -CXR PA and lateral in AM to assess effusion -Consult Dr. Roper, appreciate assistance with this case Present on Admission?: Yes (2) Pleural effusion: As above. Stable from prior CXR. Do not feel that she needs to have urgent thoracentesis at this time as her respiratory status is improved -Continue to monitor respiratory status. Thoracentesis if she acutely decompensates -CXR in AM -Consult Dr. Roper, appreciate assistance Present on Admission?: Yes (3) Anemia: H/H=8.7/27.9. Normochromic/normocytic, stable from prior. No active bleeding -Continue to monitor Present on Admission?: Yes (4) COPD (chronic obstructive pulmonary disease): No wheeze on exam today. -DuoNeb q 6 hours -Albuterol q 2 hours PRN -Supplemental O2 as above, goal saturation 88-92% -Continue Guaifenasin Present on Admission?: Yes (5) Paroxysmal atrial fibrillation: Presently in NSR, anticoagulated on Coumadin with INR=2.6 -Continue Amiodarone -Continue Carvedilol -Continue Coumadin Present on Admission?: Yes (6) Squamous cell lung cancer: Surgical cure s/p wedge resection -Continue to monitor (7) Hyperlipidemia: Chronic. Stable -Continue Simvastatin Present on Admission?: Yes (8) Hypertension: Chronic. Poorly controlled at present, may be contributing to SOB -Continue Coreg, Hydralazine, Lasix as above -Hydralazine 5mg IV q 6 hours PRN SBP > 180 mmHg -Continue to monitor Present on Admission?: Yes (9) CKD (chronic kidney disease), stage III: Chronic. stable -Avoid nephrotoxic agents -Renal dosing where needed -Continue to monitor BUN, Cr, UOP and electrolytes daily -Cautious diuresis Present on Admission?: Yes (10) Coronary artery disease: Patient presently with no chest pain. EKG with suggestion of new infarct. 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 Roper on 04/03/19. The surgery went well with no complications identified. Patient's post operative course complicated by confusion thought to be secondary to opioid use, atrial fibrillation for which she was started on Amiodarone, right sided pleural effusion s/p thoracentesis on 04/15/19 in which 50mL of serous fluid was removed. Fluid remained negative for bacterial growth. She was discharged to [facility] rehab on 04/17/19 in stable condition. She participated in rehab but reports progressive shortness of breath and decreased exercise tolerance. She was discharged from rehab to home on 04/30/19. Since then she reports worsening shortness of breath at rest and with exertion. She has a stable cough productive for clear/yellow sputum. She reports worsening wheezing as well as orthopnea, edema and an unintentional weight gain of 20# since surgery (85.7kg today, per records she was 81.8 kg on 04/03/19. Weight peaked at 89.1kg on 04/17 on discharge). She reports some relief in SOB with Breo inhaler. On arrival to the ER she was found to be afebrile, hypertensive at 210/84, RR of 28 with increased work of breathing, 89% on room air. She was placed on BiPAP with improved respiratory status. She was previously on Lasix which was discontinued due to "kidney troubles". She was restarted on Lasix by her PCP yesterday. Patient denies fevers/chills/sweats/malaise. She denies chest pa in/palpitations/dizziness. Denies abdominal pain/nausea/vomiting/diarrhea or constipation. No additional complaints at this time. ER Course: Albuterol, Lasix 40mg IV, Ativan 0.5mg Allergies Allergy/AdvReac Type Severity Reaction Status Date / Time chlorhexidine Allergy Mild HIVES,RED Verified 05/02/19 18:10 RASH Home Medications Home Medications Medication Instructions Recorded Confirmed Type Breo Ellipta 1 inh INHALATION QAM 12/23/18 05/02/19 History ferrous sulfate 325 mg PO QAM 12/23/18 05/02/19 History ergocalciferol (vitamin D2) 50,000 50,000 unit PO MONTHLY #3 cap 02/27/19 05/02/19 History unit capsule albuterol sulfate [Ventolin HFA] 2 puff INHALATION Q4H PRN 04/03/19 05/02/19 History simvastatin 40 mg PO HS 04/03/19 05/02/19 History amiodarone 200 mg tablet 200 mg PO BIDM tab 05/01/19 05/02/19 History hydralazine 50 mg tablet 12.5 mg PO BIDM tab 05/01/19 05/02/19 History tiotropium bromide 2.5 2 puffs INHALATION BID #2 gm 05/01/19 05/02/19 History mcg/actuation mist for inhalation warfarin 2 mg tablet See Rx Instructions PO UD tab 05/01/19 05/02/19 History acetaminophen [Mapap 650 mg PO Q4H PRN MDD 3250 MG 05/02/19 05/02/19 History (acetaminophen)] APAP/DAILY carvedilol 12.5 mg PO BIDM 05/02/19 05/02/19 History cyanocobalamin (vitamin B-12) 1,000 mcg PO QAM 05/02/19 05/02/19 History [Vitamin B-12] docusate sodium 100 mg PO BID 05/02/19 05/02/19 History furosemide [Lasix] 20 mg PO QAM 05/02/19 05/02/19 History guaifenesin 600 mg PO BID PRN 05/02/19 05/02/19 History Past Med/Surg History Medical History Anemia Cardiomyopathy Coronary artery disease NON-OBSRTUCTIVE Mitral regurgitation Nocturnal hypoxemia 2L AT HS 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 Takotsubo syndrome 2016 Lung nodule (Resolved) CKD (chronic kidney disease) BASELINE CREATININE 1.6-1.8 PER CHART REVIEW COPD (chronic obstructive pulmonary disease) History of IA (myocardial infarction) 2016= MEDICALLY MANAGED History of abdominal aortic aneurysm (AAA) S/P REPAIR 2016 Hyperlipidemia Hypertension Multinodular goiter Osteoarthritis Pulmonary embolism RECURRENT (~2012) ON COUMADIN Surgical History AAA (abdominal aortic aneurysm) S/P REPAIR 2016 Status post total replacement of hip (Resolved 04/19/13) History of bladder surgery TURBT History of bronchoscopy EBUS, Navigational bronch with biopsy: 02/21/19: Grade 2 view, MAC 3, ETT 8.5 History of tooth extraction Family History Sister Skin cancer Mother Cancer Other Dyslipidemia Hypertension Malignant neoplasm of bone Social History Preferred Language: Slovenian Communication Ability: Effective 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 Beliefs That Will Affect Care: None marital status: / Current Living Situation: Alone Feels Safe at Home: Yes Safety Concerns: Feels Safe At This Time Smoking Status: Former smoker Cigarettes Per Day: 30 Do You Dip or Chew Tobacco: No Smoking End Date: 2007 Second Hand Exposure: No Hx Alcohol Use: No Hx Substance Use: No Review of Systems Review of Systems: All systems reviewed & are unremarkable except as noted in HPI & below Physical Exam Physical Exam: General: patient resting comfortably, BiPAP mask in place, NAD, non-toxic in appearance, AA&O x 4 Skin: warm, dry, intact, no rashes or lesions HEENT: NC/AT, PERRL, EOMI, anicteric sclera, conjunctiva without injection, external ear normal to inspection and nontender, nares patent, moist mucus membranes, dentition intact, no oropharyngeal lesions, neck supple, trachea midline, no LAD, no thyromegaly, no JVD Heart: +S1/S2, regular, no m/r/g Lungs: equal air entry bilaterally, crackles in right lung to mid-lung field, crackles in left base, no rhonchi/wheezes, no respiratory distress, patient sp eaking in complete sentences Abd: +BS, soft, NT/ND, no masses/organomegaly/ascites Ext: warm, 2+ pulses in UE/LE bilaterally, no clubbing/cyanosis, 3+ pitting edema of bilateral LE, contusion on left ankle Neuro: nonfocal, patient AA&O x 4, speech intact, no facial droop, moving all extremities on command with equal strength 5/5 Results & Data Vital Signs (Past 12 Hours) Vital Signs Temp Pulse Pulse Resp BP BP Pulse Ox 05/02/19 20:19 71 24 100 05/02/19 20:17 71 24 183/81 H 99 05/02/19 18:56 66 22 190/62 H 99 05/02/19 18:28 72 29 H 99 05/02/19 18:26 72 29 H 99 05/02/19 17:44 37.1 C 78 28 H 210/84 H 89 L Laboratory Results Lab Results 05/02/19 05/02/19 05/02/19 Range/Units 18:15 18:15 18:15 WBC 6.03 (4.8-10.8) K/uL RBC 3.02 L (4.2-5.4) M/uL Hgb 8.7 L (12.0-16.0) g/dL Hct 27.9 L (37-47) % MCV 92.4 (80-100) fL MCH 28.8 (25-34) pg MCHC 31.2 L (32-36) g/dL RDW Std Deviation 51.1 H (36.4-46.3) fL RDW Coeff of Mio 15.0 H (11.5-14.5) % Plt Count 359 (130-400) K/uL MPV 8.7 (7.4-10.4) fL Immature Gran % (Auto) 0.7 % Neut % (Auto) 72.9 % Lymph % (Auto) 12.6 % [place] % (Auto) 9.5 % Eos % (Auto) 4.1 % Baso % (Auto) 0.2 % Immature Gran # (Auto) 0.04 H (0.00-0.02) K/uL Neut # (Auto) 4.40 (1.4-6.5) K/uL Lymph # (Auto) 0.76 L (1.2-3.4) K/uL [place] # (Auto) 0.57 (0.11-0.59) K/uL Eos # (Auto) 0.25 (0-0.5) K/uL Baso # (Auto) 0.01 (0-0.2) K/uL PT 24.8 H (9.0-12.0) Seconds INR 2.6 H (0.9-1.1) ABG pH (7.35-7.45) ABG pCO2 (35-46) mmHg ABG pO2 (80-95) mm/Hg ABG HCO3 (19-24) mmol/L ABG O2 Saturation (90-95) % ABG Base Excess (-9-1.8) mEq/L Elan Test (Pos) Barometric Pressure mm/Hg Oxygen Given Sodium 139 (136-145) mmol/L Potassium 4.2 (3.5-5.1) mmol/L Chloride 102 (98-107) mmol/L Carbon Dioxide 31 (21-32) mmol/L Anion Gap 6.0 (3-11) BUN 28 H (7-18) mg/dl Creatinine 1.36 H (0.6-1.2) mg/dl Est Cr Clr Drug Dosing 35.4 ml/min Est GFR ( Amer) 42.5 Est GFR (Non-Af Amer) 36.7 BUN/Creatinine Ratio 20.2 H (10-20) Glucose 99 (70-99) mg/dl Calcium 8.4 L (8.5-10.1) mg/dl Magnesium 2.3 (1.8-2.4) mg/dl Total Bilirubin 0.3 (0.2-1) mg/dl AST 14 L (15-37) U/L ALT 22 (12-78) U/L Alkaline Phosphatase 122 H (45-117) U/L Troponin I < 0.015 (0-0.045) ng/ml NT-Pro-B Natriuret Pep 2903 H (0-1800) pg/ml Total Protein 6.9 (6.4-8.2) gm/dl Albumin 2.2 L (3.4-5.0) gm/dl Globulin 4.7 H (2.5-4.0) gm/dl Albumin/Globulin Ratio 0.5 L (0.9-2) Lipase 96 (73-393) U/L 05/02/19 Range/Units 20:26 WBC (4.8-10.8) K/uL RBC (4.2-5.4) M/uL Hgb (12.0-16.0) g/dL Hct (37-47) % MCV (80-100) fL MCH (25-34) pg MCHC (32-36) g/dL RDW Std Deviation (36.4-46.3) fL RDW Coeff of Mio (11.5-14.5) % Plt Count (130-400) K/uL MPV (7.4-10.4) fL Immature Gran % (Auto) % Neut % (Auto) % Lymph % (Auto) % [place] % (Auto) % Eos % (Auto) % Baso % (Auto) % Immature Gran # (Auto) (0.00-0.02) K/uL Neut # (Auto) (1.4-6.5) K/uL Lymph # (Auto) (1.2-3.4) K/uL [place] # (Auto) (0.11-0.59) K/uL Eos # (Auto) (0-0.5) K/uL Baso # (Auto) (0-0.2) K/uL PT (9.0-12.0) Seconds INR (0.9-1.1) ABG pH 7.38 (7.35-7.45) ABG pCO2 52 H (35-46) mmHg ABG pO2 77 L (80-95) mm/Hg ABG HCO3 30 H (19-24) mmol/L ABG O2 Saturation 93.6 (90-95) % ABG Base Excess 4.6 H (-9-1.8) mEq/L Elan Test Pos (Pos) Barometric Pressure 733.8 mm/Hg Oxygen Given BI-PAP 35% Sodium (136-145) mmol/L Potassium (3.5-5.1) mmol/L Chloride (98-107) mmol/L Carbon Dioxide (21-32) mmol/L Anion Gap (3-11) BUN (7-18) mg/dl Creatinine (0.6-1.2) mg/dl Est Cr Clr Drug Dosing ml/min Est GFR ( Amer) Est GFR (Non-Af Amer) BUN/Creatinine Ratio (10-20) Glucose (70-99) mg/dl Calcium (8.5-10.1) mg/dl Magnesium (1.8-2.4) mg/dl Total Bilirubin (0.2-1) mg/dl AST (15-37) U/L ALT (12-78) U/L Alkaline Phosphatase (45-117) U/L Troponin I (0-0.045) ng/ml NT-Pro-B Natriuret Pep (0-1800) pg/ml Total Protein (6.4-8.2) gm/dl Albumin (3.4-5.0) gm/dl Globulin (2.5-4.0) gm/dl Albumin/Globulin Ratio (0.9-2) Lipase (73-393) U/L Diagnostic Findings XR chest 1V portable HISTORY: 78 years-old Female sob acute shortness of breath COMPARISON: Chest radiograph 04/23/2019 TECHNIQUE: Portable AP view of the chest FINDINGS: Cardiac silhouette is mildly enlarged, unchanged. Chronic volume loss of the right lung with postoperative changes and unchanged right pleural effusion. Decreased opacity throughout the right lung. Subsegmental left basilar opacities suggest atelectasis. There is no pneumothorax. Suggested emphysema. Degenerative changes of the shoulders and spine. IMPRESSION: 1. Unchanged right pleural effusion with persistent yet mildly decreased right lung opacities. 2. Chronic postoperative changes and volume loss of the right lung. The above report was generated using voice recognition software. It may contain grammatical, syntax or spelling errors. Electronically signed by: Go Huerta M.D. 05/02/2019 6:14 PM Dictated: 05/02/191811 Transcribed: 05/02/191811 ECG Additional Comments: The study shows NSR at 78bpm, normal axis, NG=420, QRS=80, NPw=215, suggestion of new anteroseptal infarct when compared to prior study from 15 April 2019, poor R wave progression Code Status & VTE Plan Code Status FULL VTE Prophylaxis Plan VTE Prophylaxis will be ordered: Yes (1) Dyspnea Dyspnea type: acute respiratory distress Qualified Code(s): R06.03 - Acute respiratory distress (2) Anemia Anemia type: unspecified type Qualified Code(s): D64.9 - Anemia, unspecified (3) COPD (chronic obstructive pulmonary disease) COPD type: unspecified COPD Qualified Code(s): J44.9 - Chronic obstructive pulmonary disease, unspecified (4) Squamous cell lung cancer Laterality: right Qualified Code(s): C34.91 - Malignant neoplasm of unspecified part of right bronchus or lung (5) Hyperlipidemia Hyperlipidemia type: unspecified Qualified Code(s): E78.5 - Hyperlipidemia, unspecified (6) Hypertension Hypertension type: essential hypertension Qualified Code(s): I10 - Essential (primary) hypertension (7) Coronary artery disease Coronary Disease-Associated Artery/Lesion type: [place] artery [place] vs. transplanted heart: [place] heart Associated angina: without angina Qualified Code(s): I25.10 - Atherosclerotic heart disease of [place] coronary artery without angina pectoris
[2019-05-02] MEDS ORDERED: ACETAMINOPHEN 325 MG TAB PO PRN (22:06)
[2019-05-02] MEDS ORDERED: HydrALAZINE HCL 20 MG/ML VIAL IV PRN (22:06)
[2019-05-02] MEDS ORDERED: ALBUTEROL 0.5% NEB SOLN 2.5 MG/0.5 ML VIAL NEB PRN (22:06)
[2019-05-02] MEDS ORDERED: guaiFENesin 600 MG TABCR PO PRN (22:06)
[2019-05-02] MEDS: SIMVASTATIN 40 MG TAB PO SCH (23:14)
[2019-05-02] MEDS: DOCUSATE SODIUM 100 MG CAP PO SCH (23:14)
--- NOTE | 2019-05-03 01:34 | Emergency Department Note ---
Entered by Deana Gamble acting as a scribe for History of Present Illness General Chief complaint: Shortness of Breath/Dyspnea Stated complaint: SOB Time Seen by Provider: 05/02/19 17:39 Source: patient and family (daughter ) History of Present Illness Onset (ago): hour(s) (today) Location: chest Severity: similar to prior episodes Pain Consistency: + other (worsening) Quality: + other (shortness of breath ) Relieved By: not by medication (Duoneb) Exacerbated By: + other (laying flat; walking around ) Associated symptoms: + other (positive swelling in legs and arms; negative difficulty with bowel movements or urination; ); no chest pain Treatments prior to arrival: other (Duoneb) The patient is a 78 year old female who presents to the Emergency Room with complaints of worsening shortness of breath that began today. The patient denies chest pain during this time. She states that her symptoms are exacerbated with laying flat and walking around. The patient reports having a history of COPD, a nd states that this is similar to prior episodes. The patient states that she is typically on 2L of oxygen at home, but states that she had to increase her oxygen to 3L today to relieve her symptoms. The patient reports new swelling in her legs and arms, and states that this began after beginning Amiodarone for her Afib. The patient denies chest pain and difficulty with bowel movements or urination at this time. She states that she has had no appetite recently. The patient states that she had a right lower lobectomy one month ago. She states that she received a Duoneb by EMS, but states that this did not relieve her symptoms. The patient's daughter states that the patient is on Warfarin and her last level was 2.62. Daughter also states she is previously had fluid drained off of her right lung since the prior surgery. She has followed up with Dr. Quintanilla in the office. She was also previously using a water pill when she was in rehab, this was then discontinued. Home Medications Home Medications Medication Instructions Recorded Confirmed Type Breo Ellipta 1 inh INHALATION QAM 12/23/18 05/02/19 History ferrous sulfate 325 mg PO QAM 12/23/18 05/02/19 History ergocalciferol (vitamin D2) 50,000 50,000 unit PO MONTHLY #3 cap 02/27/19 05/02/19 History unit capsule albuterol sulfate [Ventolin HFA] 2 puff INHALATION Q4H PRN 04/03/19 05/02/19 History simvastatin 40 mg PO HS 04/03/19 05/02/19 History amiodarone 200 mg tablet 200 mg PO BIDM tab 05/01/19 05/02/19 History hydralazine 50 mg tablet 12.5 mg PO BIDM tab 05/01/19 05/02/19 History tiotropium bromide 2.5 2 puffs INHALATION BID #2 gm 05/01/19 05/02/19 History mcg/actuation mist for inhalation warfarin 2 mg tablet See Rx Instructions PO UD tab 05/01/19 05/02/19 History acetaminophen [Mapap 650 mg PO Q4H PRN MDD 3250 MG 05/02/19 05/02/19 History (acetaminophen)] APAP/DAILY carvedilol 12.5 mg PO BIDM 05/02/19 05/02/19 History cyanocobalamin (vitamin B-12) 1,000 mcg PO QAM 05/02/19 05/02/19 History [Vitamin B-12] docusate sodium 100 mg PO BID 05/02/19 05/02/19 History furosemide [Lasix] 20 mg PO QAM 05/02/19 05/02/19 History guaifenesin 600 mg PO BID PRN 05/02/19 05/02/19 History Allergies Allergy/AdvReac Type Severity Reaction Status Date / Time chlorhexidine Allergy Mild HIVES,RED Verified 05/02/19 18:10 RASH Past Med/Surg History Medical History Anemia Cardiomyopathy Coronary artery disease NON-OBSRTUCTIVE Mitral regurgitation Nocturnal hypoxemia 2L AT HS 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 Takotsubo syndrome 2016 Lung nodule (Resolved) CKD (chronic kidney disease) BASELINE CREATININE 1.6-1.8 PER CHART REVIEW COPD (chronic obstructive pulmonary disease) History of IA (myocardial infarction) 2016= MEDICALLY MANAGED History of abdominal aortic aneurysm (AAA) S/P REPAIR 2016 Hyperlipidemia Hypertension Multinodular goiter Osteoarthritis Pulmonary embolism RECURRENT (~2012) ON COUMADIN Surgical History AAA (abdominal aortic aneurysm) S/P REPAIR 2016 Status post total replacement of hip (Resolved 04/19/13) History of bladder surgery TURBT History of bronchoscopy EBUS, Navigational bronch with biopsy: 02/21/19: Grade 2 view, MAC 3, ETT 8.5 History of tooth extraction Family History Sister Skin cancer Mother Cancer Other Dyslipidemia Hypertension Malignant neoplasm of bone Social History Preferred Language: [place]ian Communication Ability: Effective Client Services Account Manager Required: No Beliefs That Will Affect Care: None marital status: / Current Living Situation: Alone Feels Safe at Home: Yes Safety Concerns: Feels Safe At This Time Smoking Status: Former smoker Cigarettes Per Day: 30 Do You Dip or Chew Tobacco: No Smoking End Date: 2007 Second Hand Exposure: No Hx Alcohol Use: No Hx Substance Use: No Review of Systems See HPI for pertinent positives & negatives. and A total of 10 systems reviewed and were otherwise negative Physical Exam Vital Signs Vital Signs - 24 hr 05/02/19 17:44 05/02/19 18:26 05/02/19 18:28 Temperature 37.1 C Temperature Source Oral Sepsis Recent Fever Within 48 Hours No Sepsis New/Unexplained Change in Mental Status No Sepsis Action Taken by Nursing No Action Required Oxygen Flow Rate - Titration 3 Pulse Oximetry Post Tiitration 98 Pulse Rate 78 72 Pulse Rate [Apical] 72 Respiratory Rate 28 H 29 H 29 H Respiratory Effort / Characteristics Spontaneous Short of Breath Spontaneous Short of Breath Respiratory Depth Normal Respiratory Pattern Tachypnea Blood Pressure 210/84 H Blood Pressure [Right Arm] Blood Pressure Mean 126 Blood Pressure Mean [Right Arm] Pulse Oximetry 89 L 99 99 Oxygen Delivery Method Room Air Nasal Cannula BiPAP Oxygen Flow Rate 0 Fraction of Inspired Oxygen 35 35 05/02/19 18:56 05/02/19 20:17 05/02/19 20:19 Temperature Temperature Source Sepsis Recent Fever Within 48 Hours Sepsis New/Unexplained Change in Mental Status Sepsis Action Taken by Nursing Oxygen Flow Rate - Titration Pulse Oximetry Post Tiitration Pulse Rate 71 Pulse Rate [Apical] 66 71 Respiratory Rate 22 24 24 Respiratory Effort / Characteristics Non-Labored Spontaneous Non-Labored Spontaneous Respiratory Depth Normal Normal Respiratory Pattern Regular Blood Pressure Blood Pressure [Right Arm] 190/62 H 183/81 H Blood Pressure Mean Blood Pressure Mean [Right Arm] 104 115 Pulse Oximetry 99 99 100 Oxygen Delivery Method BiPAP BiPAP Oxygen Flow Rate Fraction of Inspired Oxygen 35 GENERAL: alert, well appearing, well nourished, mild distress, non-toxic EYE EXAM: normal conjunctiva, PERRL and EOM's grossly intact OROPHARYNX: no exudate, no erythema, lips, buccal mucosa, and tongue normal and mucous membranes are moist NECK: supple, no nuchal rigidity, no adenopathy, non-tender LUNGS: Tachypneic, slight pursed lip breathing. Increased work of breathing. Decreased breath sounds. No wheezing, rhonchi, rales. HEART: no murmurs, S1 normal and S2 normal ABDOMEN: abdomen soft, non-tender, normo-active bowel sounds, no masses, no rebound or guarding. BACK: Back is symmetrical on inspection and there is no deformity, no midline tenderness, no CVA tenderness. SKIN: no rashes and no bruising UPPER EXTREMITIES: upper extremities are grossly normal. FROM, nml pulses b/l. LOWER EXTREMITIES: 3+ bilateral lower extremity edema. FROM, nml pulses b/l. NEURO EXAM: Normal sensorium, cranial nerves II-XII grossly intact, normal speech, no gross weakness of arms, no gross weakness of legs. Course 174: Past medical records reviewed. The patient was evaluated in room A11B. A complete history and physical exam was performed. 1833: Upon reevaluation, the patient states that she feels better with Bipap. The patient's daughter states that the patient already had drainage of a lung effusion once prior to going to rehab after her surgery. 2013: [facility] further evaluation. 2015: I updated the patient and her family on the treatment plan. They verbalized understanding were in agreement. Patient continues to appear markedly more comfortable with improving vitals and decreased work of breathing while on BiPAP. Consultations Consultation #1: I discussed the [facility] patient for further evaluation. Time: 20:13 Administered Medications Docusate Sodium (Colace) 100 mg PO BID SRIDHAR Stop: 06/01/19 22:44 Last Admin: 05/02/19 23:14 Dose: 100 mg Documented by: [id number] Simvastatin (Zocor) 40 mg PO HS SRIDHAR Stop: 06/01/19 22:44 Last Admin: 05/02/19 23:14 Dose: 40 mg Documented by: [id number] Discontinued Medications Albuterol (Duoneb) 3 ml NEB NOW STA Stop: 05/02/19 18:10 Last Admin: 05/02/19 18:23 Dose: 3 ml Documented by: [id number] Furosemide (Lasix) 40 mg IV NOW STA Stop: 05/02/19 18:10 Last Admin: 05/02/19 18:33 Dose: 40 mg Documented by: [id number] Lorazepam (Ativan) 0.25 mg in 0.5 mls @ 0.5 mls/min IV NOW STA Stop: 05/02/19 18:09 Last Admin: 05/02/19 18:33 Dose: 0.5 mls/min Documented by: [id number] Medical Decision Making Differential Diagnosis Differential diagnosis: Etiologies such as infections, reactive airway disease, pneumonia, pneumothorax, COPD, CHF, cardiac ischemia, pulmonary embolism, musculoskeletal, gastrointestinal, as well as others were entertained. Medical Records Attestation: I reviewed the patient's medical records. Home Medications Current Medication List: was personally reviewed by me Laboratory Data Attestation: I reviewed the patient's lab results. Result diagrams: 05/02/19 18:15 05/02/19 18:15 Lab Results 05/02/19 05/02/19 05/02/19 Range/Units 18:15 18:15 18:15 WBC 6.03 (4.8-10.8) K/uL RBC 3.02 L (4.2-5.4) M/uL Hgb 8.7 L (12.0-16.0) g/dL Hct 27.9 L (37-47) % MCV 92.4 (80-100) fL MCH 28.8 (25-34) pg MCHC 31.2 L (32-36) g/dL RDW Std Deviation 51.1 H (36.4-46.3) fL RDW Coeff of Mio 15.0 H (11.5-14.5) % Plt Count 359 (130-400) K/uL MPV 8.7 (7.4-10.4) fL Immature Gran % (Auto) 0.7 % Neut % (Auto) 72.9 % Lymph % (Auto) 12.6 % [place] % (Auto) 9.5 % Eos % (Auto) 4.1 % Baso % (Auto) 0.2 % Immature Gran # (Auto) 0.04 H (0.00-0.02) K/uL Neut # (Auto) 4.40 (1.4-6.5) K/uL Lymph # (Auto) 0.76 L (1.2-3.4) K/uL [place] # (Auto) 0.57 (0.11-0.59) K/uL Eos # (Auto) 0.25 (0-0.5) K/uL Baso # (Auto) 0.01 (0-0.2) K/uL PT 24.8 H (9.0-12.0) Seconds INR 2.6 H (0.9-1.1) ABG pH (7.35-7.45) ABG pCO2 (35-46) mmHg ABG pO2 (80-95) mm/Hg ABG HCO3 (19-24) mmol/L ABG O2 Saturation (90-95) % ABG Base Excess (-9-1.8) mEq/L Elan Test (Pos) Barometric Pressure mm/Hg Oxygen Given Sodium 139 (136-145) mmol/L Potassium 4.2 (3.5-5.1) mmol/L Chloride 102 (98-107) mmol/L Carbon Dioxide 31 (21-32) mmol/L Anion Gap 6.0 (3-11) BUN 28 H (7-18) mg/dl Creatinine 1.36 H (0.6-1.2) mg/dl Est Cr Clr Drug Dosing 35.4 ml/min Est GFR ( Amer) 42.5 Est GFR (Non-Af Amer) 36.7 BUN/Creatinine Ratio 20.2 H (10-20) Glucose 99 (70-99) mg/dl Calcium 8.4 L (8.5-10.1) mg/dl Magnesium 2.3 (1.8-2.4) mg/dl Total Bilirubin 0.3 (0.2-1) mg/dl AST 14 L (15-37) U/L ALT 22 (12-78) U/L Alkaline Phosphatase 122 H (45-117) U/L Troponin I < 0.015 (0-0.045) ng/ml NT-Pro-B Natriuret Pep 2903 H (0-1800) pg/ml Total Protein 6.9 (6.4-8.2) gm/dl Albumin 2.2 L (3.4-5.0) gm/dl Globulin 4.7 H (2.5-4.0) gm/dl Albumin/Globulin Ratio 0.5 L (0.9-2) Lipase 96 (73-393) U/L 05/02/19 Range/Units 20:26 WBC (4.8-10.8) K/uL RBC (4.2-5.4) M/uL Hgb (12.0-16.0) g/dL Hct (37-47) % MCV (80-100) fL MCH (25-34) pg MCHC (32-36) g/dL RDW Std Deviation (36.4-46.3) fL RDW Coeff of Mio (11.5-14.5) % Plt Count (130-400) K/uL MPV (7.4-10.4) fL Immature Gran % (Auto) % Neut % (Auto) % Lymph % (Auto) % [place] % (Auto) % Eos % (Auto) % Baso % (Auto) % Immature Gran # (Auto) (0.00-0.02) K/uL Neut # (Auto) (1.4-6.5) K/uL Lymph # (Auto) (1.2-3.4) K/uL [place] # (Auto) (0.11-0.59) K/uL Eos # (Auto) (0-0.5) K/uL Baso # (Auto) (0-0.2) K/uL PT (9.0-12.0) Seconds INR (0.9-1.1) ABG pH 7.38 (7.35-7.45) ABG pCO2 52 H (35-46) mmHg ABG pO2 77 L (80-95) mm/Hg ABG HCO3 30 H (19-24) mmol/L ABG O2 Saturation 93.6 (90-95) % ABG Base Excess 4.6 H (-9-1.8) mEq/L Elan Test Pos (Pos) Barometric Pressure 733.8 mm/Hg Oxygen Given BI-PAP 35% Sodium (136-145) mmol/L Potassium (3.5-5.1) mmol/L Chloride (98-107) mmol/L Carbon Dioxide (21-32) mmol/L Anion Gap (3-11) BUN (7-18) mg/dl Creatinine (0.6-1.2) mg/dl Est Cr Clr Drug Dosing ml/min Est GFR ( Amer) Est GFR (Non-Af Amer) BUN/Creatinine Ratio (10-20) Glucose (70-99) mg/dl Calcium (8.5-10.1) mg/dl Magnesium (1.8-2.4) mg/dl Total Bilirubin (0.2-1) mg/dl AST (15-37) U/L ALT (12-78) U/L Alkaline Phosphatase (45-117) U/L Troponin I (0-0.045) ng/ml NT-Pro-B Natriuret Pep (0-1800) pg/ml Total Protein (6.4-8.2) gm/dl Albumin (3.4-5.0) gm/dl Globulin (2.5-4.0) gm/dl Albumin/Globulin Ratio (0.9-2) Lipase (73-393) U/L Imaging Data Radiologist's Impression: Radiology results as stated below per my review and the radiologist's interpretation: XR chest 1V portable HISTORY: 78 years-old Female sob acute shortness of breath COMPARISON: Chest radiograph 04/23/2019 TECHNIQUE: Portable AP view of the chest FINDINGS: Cardiac silhouette is mildly enlarged, unchanged. Chronic volume loss of the right lung with postoperative changes and unchanged right pleural effusion. Decreased opacity throughout the right lung. Subsegmental left basilar opacities suggest atelectasis. There is no pneumothorax. Suggested emphysema. Degenerative changes of the shoulders and spine. IMPRESSION: 1. Unchanged right pleural effusion with persistent yet mildly decreased right lung opacities. 2. Chronic postoperative changes and volume loss of the right lung. The above report was generated using voice recognition software. It may contain grammatical, syntax or spelling errors. Electronically signed by: Go Huerta M.D. 05/02/2019 6:14 PM ECG Data Attestation: I personally reviewed and interpreted this ECG as follows: Indication: SOB/dyspnea Rate (beats per minute): 78 Rhythm: sinus rhythm Findings: + other (normal axis; normal intervals), + 1st degree AV block and + Q waves (V2, V3, lead III); no ST elevation Blood Pressure Blood Pressure Findings: Elevated blood pressure Blood Pressure Disposition: further management by hospitalist ORIN Narrative Patient here ill-appearing with increased work of breathing initially despite turning up her usual home nasal cannula. Given increased work of breathing and following stat chest x-ray which showed moderate to large right pleural effusion, patient started on BiPAP. Patient's work of breathing decrease in vital signs improved following placement on BiPAP. Chest x-ray today was compared to prior at the end of March and did not show any worsening effusion. Patient denies any recent fevers, and no significant leukocytosis to suggest evolving pneumonia. Patient is status post partial lobectomy on the right as performed by Dr. Roper the beginning of March. Patient's INR is therapeutic, I do not suspect PE. Patient with no other hemoptysis or bleeding from any other site despite Coumadin therapy. Patient anemic here, although levels stable compared to prior on review of EMR. Patient with mild renal dysfunction noted, however again level stable compared to prior on review of EMR. Patient and daughter at bedside made aware of all results and were in agreement with plan for additional inpatient monitoring and therapy. Given stable pleural effusion despite increased dyspnea, I did not see a need for emergent thoracentesis at this time. Patient markedly improved on BiPAP. Patient does have history of COPD, was given additional nebulizer treatments here. Patient with mild hypercapnia although normal pH noted on blood gas. Given underlying COPD this is likely chronic. Case discussed with hospitalist for additional inpatient evaluation and treatment. Impression & Plan Dyspnea, Pleural effusion, Anemia, COPD (chronic obstructive pulmonary disease) Critical Care Time Critical Care Time: Yes Total Critical Care Time: 42 I have personally spent 42 minutes of critical care time in the direct management of this patient. This includes bedside care, interpretation of diagnostic studies, and testing, discussion with consultants, patient, and family members, and other required patient management activities. This 42 gladys paty is in excess of all separately billable procedures. Discharge Plan Visit Data *Final* Discharge Date/Time: 05/02/19 21:56 Chief Complaint: Shortness of Breath/Dyspnea Stated Complaint: SOB ED Provider: Denise Frias Discharge Problem: Dyspnea, Pleural effusion, Anemia, COPD (chronic obstructive pulmonary disease) Patient Disposition: Admitted As Inpatient Discharge Instructions Interventions: ED Discharge Assessment Last Done: 05/02/19 21:56 Discharge Problem: Dyspnea Qualifiers: Dyspnea type: acute respiratory distress Qualified Code(s): R06.03 - Acute respiratory distress Anemia Qualifiers: Anemia type: unspecified type Qualified Code(s): D64.9 - Anemia, unspecified COPD (chronic obstructive pulmonary disease) Qualifiers: COPD type: unspecified COPD Qualified Code(s): J44.9 - Chronic obstructive pulmonary disease, unspecified The scribe's documentation has been prepared under my direction and personally reviewed by me in its entirety. I confirm that the note above accurately reflects all work, treatment, procedures, and medical decision making performed by me.
[2019-05-03] MEDS: ALBUT/IPRATROP 3MG/0.5MG NEB 3 ML VIAL NEB SCH ×4 (02:01→19:06)
[2019-05-03 06:38] LABS: Basophils # (auto) 0.01 K/uL (0-0.2); Basophils % (auto) 0.2 %; Eosinophils # (auto) 0.29 K/uL (0-0.5); Eosinophils % (auto) 5.2 %; Hematocrit (blood only) 25.2 % (37-47); Hemoglobin 7.9 g/dL (12.0-16.0); Immature Granulocytes # (auto) 0.03 K/uL (0.00-0.02); Immature Granulocytes % (auto) 0.5 %; Lymphocytes # (auto) 0.83 K/uL (1.2-3.4); Lymphocytes % (auto) 14.9 %; Mean Corpuscular Hgb Conc 31.3 g/dL (32-36); Mean Platelet Volume 8.6 fL (7.4-10.4); Monocytes # (auto) 0.69 K/uL (0.11-0.59); Monocytes % (auto) 12.4 %; Neutrophils # (auto) 3.72 K/uL (1.4-6.5); Neutrophils % (auto) 66.8 %; Platelet Count 312 K/uL (130-400); RDW Standard Deviation 50.7 fL (36.4-46.3); Red Blood Count 2.74 M/uL (4.2-5.4); White Blood Count 5.57 K/uL (4.8-10.8)
[2019-05-03 07:02] LABS: RBC Morphology Unremarkable
[2019-05-03 07:06] LABS: BUN Creatinine Ratio 18.2 (10-20); Calcium 8.4 mg/dl (8.5-10.1); Creatinine Clr Calc Pharmacy 35.8 ml/min; Est GFR (African American) 44.5; Est GFR (Non-African American) 38.4; Potassium 3.8 mmol/L (3.5-5.1)
[2019-05-03 07:25] LABS: INR 2.8 (0.9-1.1); Prothrombin Time 26.4 Seconds (9.0-12.0)
[2019-05-03] MEDS: CYANOCOBALAMIN 500 MCG TABLET (VITAMIN B-12) PO SCH (08:10)
[2019-05-03] MEDS: HydrALAZINE TAB 50 MG TAB PO SCH ×2 (08:10→15:40)
[2019-05-03] MEDS: CARVEDILOL 12.5 MG TAB PO SCH ×2 (08:10→15:41)
[2019-05-03] MEDS: DOCUSATE SODIUM 100 MG CAP PO SCH ×2 (08:11→20:03)
[2019-05-03] MEDS: AMIODARONE 200 MG TAB PO SCH ×2 (08:11→15:41)
[2019-05-03] MEDS ORDERED: FUROSEMIDE 40 MG in SYRINGE 0 ML IV SCH (09:00)
--- NOTE | 2019-05-03 09:51 | XRay Report ---
XR chest 2V routine CLINICAL HISTORY: effusion is COMPARISON STUDY: 05/02/2019 FINDINGS: Slight improved right basilar pleural effusion. Unchanged in metabolic lobe infiltrate. Lef t lung is clear. Unchanged pleural thickening right apex. IMPRESSION: 1. Slightly improved right pleural effusion. 2. Unchanged right upper lobe infiltrate. The above report was generated using voice recognition software. It may contain grammatical, syntax or spelling errors. Electronically signed by: Sacha Wilson M.D. 05/03/2019 9:50 AM
--- NOTE | 2019-05-03 12:14 | Consultation Report ---
DATE OF CONSULTATION: 05/03/2019 SURGICAL CONSULTATION REASON FOR CONSULTATION: Shortness of breath. HISTORY OF PRESENT ILLNESS: This is a very pleasant 78-year-old female who is known to our service. The patient underwent a right lower lobectomy on April 03 of this year. 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 It should be noted that during her postoperative course, her hospitalization was complicated by bouts of atrial fibrillation as well as congestive heart failure. This was treated in conjunction with cardiology with diuretics as well as antiarrhythmics. Following her surgery, she was discharged to [facility] for acute inpatient rehab and she has since returned home. She was most recently seen in the office approximately 1 week ago where she was noted to be doing well. The patient notes that she presented to the Emergency Room yesterday as she has had worsening shortness of breath since her surgery, but it has gotten markedly worse over the past 2 days. The patient says that she feels as though she is gaining weight and she has worsening lower extremity edema. She reports dyspnea on exertion even with minimal activity and she also reports orthopnea, stating that her shortness of breath is better when she sits up. She has not had any fevers, shakes, or chills. The patient presented to the Emergency Department where she did have a chest x-ray where she was noted to have a right pleural effusion that was similar in appearance when compared with her prior x-rays. She did have labs where white blood cell count was noted to be within normal range. Hemoglobin and hematocrit are 7.9 and 25.2, platelet count is 312,000. Coagulation studies revealed an INR that is therapeutic at 2.8. She had an ABG performed in the Emergency Department where her pCO2 was noted to be 52, her pO2 was 77, bicarbonate level was 30. Chemistry profile showed sodium and potassium within normal range. Her BUN and creatinine were both slightly elevated at 24 and 1.3. She had a proBNP level checked that was 2903 which was elevated. There were no significant elevations of her LFTs except for slight elevation of alkaline phosphatase of 122. The patient was admitted to the hospital and diuresis with intravenous Lasix was initiated and the patient has noted some slight improvement of her symptoms. I questioned her on numerous other symptoms and since return home, there have been no falls, head injuries, visual changes, tinnitus, sore throat, or neck pain. She specifically denies any substernal chest pain. She does have shortness of breath as described above, but denies any fever, shakes, chills or cough. No hemoptysis is noted. She denies abdominal pain, nausea, vomiting or diarrhea. She denies any dysuria. She does have a history of recurrent PE for which she takes Coumadin. PAST MEDICAL HISTORY: Includes the followin. History of myocardial infarction. 2. Takotsubo syndrome. 3. Coronary artery disease. 4. History of mitral regurgitation. 5. Bladder cancer. 6. COPD. 7. Abdominal aortic aneurysm. 8. Hypertension. 9. Hyperlipidemia. 10. Pulmonary embolism. PAST SURGICAL HISTORY: Includes: 1. Transurethral resection of bladder tumor. 2. Abdominal aortic aneurysm repair. 3. Hip replacement. 4. History of endobronchial ultrasound and electromagnetic navigational bronchoscopy in January of this year. 5. History of multiple tooth extractions. 6. History of right lower lobectomy on April 03 of this year as noted above. 7. History of right thoracentesis following her lobectomy on April 10, it should be noted that cultures were negative for any bacterial growth on this study. ALLERGIES: INCLUDE CHLORHEXIDINE, WHICH CAUSES HIVES AND RASH. CURRENT MEDICATIONS: 1. Lasix 40 mg IV daily. 2. DuoNebs every 6 hours. 3. Amiodarone 200 mg twice daily. 4. Coreg 12.5 mg twice daily. 5. Vitamin B12 1000 mcg daily. 6. Colace 100 mg twice daily. 7. Hydralazine 12.5 mg twice daily. 8. Zocor 40 mg daily. 9. Coumadin, she takes alternating doses of 2 and 1 mg daily. The patient is also taking some p.r.n. Tylenol, albuterol nebulizers, Mucinex as well as IV hydralazine. SOCIAL HISTORY: She is a former smoker. FAMILY HISTORY: Positive for hypertension. REVIEW OF SYSTEMS: As noted above. PHYSICAL EXAMINATION: VITAL SIGNS: Blood pressure is 155/71, pulse 73 and regular, respirations are 18 and unlabored. She is afebrile. Temperature 36.6, her pulse ox 95% on 2 liters. GENERAL: She is alert. She is oriented x3. She is in no distress. HEENT: Head is atraumatic, normocephalic. Eyes: Pupils equal, round, reactive to light and accommodation. Extraocular motions are intact. Ears: Auditory acuity is grossly intact. Nose: Nasal patency was intact. Sinuses are nontender. Mouth is moist without exudates. NECK: Supple. There is no JVD. CARDIOVASCULAR: Regular rate and rhythm. LUNGS: The patient's lungs revealed breath sounds were noted to be decreased at the right base. She was not using accessory muscles to aid in respiration. No wheezing was noted. ABDOMEN: Soft, nontender, nondistended. EXTREMITIES: Revealed 3-4+ lower extremity edema bilaterally. NEUROLOGIC: Revealed she was alert. She was oriented x3. She can move all 4 extremities and follow simple commands without noted focal deficits. DIAGNOSTIC DATA: As noted above. IMPRESSION: An 78-year-old female with shortness of breath. PLAN: Her shortness of breath is likely multifactorial. The patient is noted to have some anemia which may be contributing. In addition, she has symptoms that are consistent with congestive heart failure and diuresis has been implemented which are recommending continuing. At the present time, her chest x-ray looks stable from previous x-rays. We will continue to monitor the patient's clinical course as it unfolds and how she responds to diuresis with further recommendations to follow.
[2019-05-03] MEDS: WARFARIN SOD 1 MG TAB PO SCH (15:40)
[2019-05-03] MEDS ORDERED: FUROSEMIDE 40 MG/4 ML VIAL IV STA (17:18)
[2019-05-03] MEDS ORDERED: FUROSEMIDE 40 MG/4 ML VIAL IV ONE (17:23)
[2019-05-03] MEDS ORDERED: FUROSEMIDE 40 MG in SYRINGE 0 ML IV ONE (17:30)
--- NOTE | 2019-05-03 17:33 | Hospitalist Progress Note ---
Date of Service May 03, 2019 Assessment & Plan (1) Dyspnea: Patient presented with progressive dyspnea since surgery/lobectomy, acutely worsening over the last 2 days prior to admission. She has multiple reasons for dyspnea to include post-operative pulmonary changes, persistent pleural effusion, COPD, acute on chronic diastolic CHF and deconditioning. She has prior PE and is adequately anticoagulated on Coumadin with a therapeutic INR. Low suspicion for infectious pulmonary process. Patient with elevated BNP, crackles present on exam on admission. Pleural effusion on the right appears stable from prior. She was initially placed on BiPAP, minimal settings of 10/5, 35%. Now weaned to 2 L nasal cannula and much improved after IV diuresis with Lasix as below -Continue treatment for CHF -Continue supplemental O2 as needed and wean off to keep pulse ox greater than 90% -Consult Dr. Roper, appreciate assistance with this case-no thoracentesis needed (2) Acute on chronic diastolic (congestive) heart failure: Patient with known chronic diastolic CHF, mild to moderate mitral regurgitation, and here with progressive dyspnea, pleural effusion, worsening lower extremity edema, weight gain, and elevated BNP. She was diuresed on her most recent admission and then had her Lasix held for acute kidney injury which had improved by the day of discharge. She was then placed on maintenance Lasix which [facility]. Patient reports she was recently started back again on Lasix 20 mg a day by her PCP on the day prior to admission for worsening lower extremity edema -Since admission, is diuresing, weaning off O2, and feels much improved with her dyspnea Her body weight is down -Continue with IV Lasix 40 mg this evening and then hold in the morning until after BMP/renal function is assessed -Follow BMP in the morning -Continue daily weights, low-sodium diet, strict I's and O's -Continue good blood pressure control-cardiology suggest increasing carvedilol to 25 mg twice daily Appreciate cardiology consultation (3) Acute respiratory failure with hypoxia: Secondary to acute CHF as above along with persistent pleural effusion and pulmonary postoperative changes as above -Continue supplemental O2 and titrate off as tolerated to keep pulse ox greater than 90% -Follow chest x-ray (4) Pleural effusion: As above. Stable from prior CXR. Seen by thoracic surgery here and does not think she needs thoracentesis at this time -Follow chest x-ray (5) Anemia: Hemoglobin with slight decrease to 7.9 which is not far off from her recent baseline. Normochromic/normocytic, stable from prior. No active bleeding - Iron studies showed anemia of chronic disease when performed 2 weeks ago. - Folate was normal then - B12 was low (168) -> she was started on a B12 supplement during previous admission -Continue cyanocobalamin 1000 mcg PO daily -follow CBC in the morning (6) COPD (chronic obstructive pulmonary disease): No acute exacerbation -Continue DuoNeb q 6 hours -Albuterol q 2 hours PRN -Supplemental O2 as above, goal saturation 88-92% -Continue guaifenesin (7) Paroxysmal atrial fibrillation: Presently in NSR, anticoagulated on Coumadin with INR=2.8 Her atrial fibrillation last admission was thought to be secondary to her thoracic surgery in the postoperative period Patient and her daughter think that the amiodarone is causing her problems and would like to discontinue it -Appreciate cardiology consultation -It is okay to discontinue amiodarone -Continue Carvedilol and increase to 25 mg p.o. twice daily -Continue Coumadin -Check INR in the morning -Continue telemetry monitoring (8) Squamous cell lung cancer: Surgical cure s/p wedge resection in 03/2019 -Continue to monitor (9) Hyperlipidemia: Chronic. Stable -Continue Simvastatin (10) Hypertension: Chronic. Remains poorly controlled at present, may be contributing to SOB -Continue Coreg and increased dose to 25 mg p.o. twice daily as per cardiology recommendations -Continue current hydralazine, Lasix as above -Hydralazine 5mg IV q 6 hours PRN SBP > 180 mmHg -Continue to monitor (11) CKD (chronic kidney disease), stage III: Chronic. stable, creatinine baseline is around 1.5 Currently at 1.33 and will watch carefully while on IV Lasix -Avoid nephrotoxic agents -Renal dosing where needed -Continue to monitor BUN, Cr, UOP and electrolytes daily -Cautious diuresis (12) Coronary artery disease: With a history of severe single-vessel disease of the RCA that is being medically managed. Patient presently with no chest pain. EKG with suggestion of new infarct with anteroseptal infarct pattern but could be secondary to varying lead placement. Troponin negative Cardiology following -Continue beta-jose a, simvastatin, warfarin (13) History of pulmonary embolism: With history of recurrent PEs, on long-term warfarin -Continue Coumadin (14) DVT prophylaxis: Warfarin Disposition-remain on PCU Subjective I discussed the case with her investment associate Patient feels much improved today. Less short of breath, denies any chest pain. Reports her legs are quite swollen and perhaps a little bit better than when she came in yesterday. She reports she has had poor appetite for last several weeks at the rehab and has not been eating much. Denies cough or abdominal pain, no nausea. Blood pressures are improved today. Telemetry with normal sinus rhythm with rates in the 60s to 70s Review of Systems Review of Systems: All systems reviewed & are unremarkable except as noted in HPI & below Physical Exam Constitutional: WD/WN, vitals as above no acute distress Eyes: PERRL, conjunctivae normal, anicteric sclerae Neck: trachea midline, no thyromegaly Respiratory: normal respiratory effort; no labored breathing Auscultation: + diminished lung sounds (At the right base and middle lung field) and + crackles (Mild bibasilar); no wheezes Cardiovascular: Rate/Rhythm: regular rate and regular rhythm Heart Sounds: + murmur (2 out of 6 left lower sternal border) Extremities: + edema (3+ pitting edema of lower extremities to the distal thighs bilaterally) Gastrointestinal (Abdomen): normal bowel sounds, soft, nontender, no hepatosplenomegaly Musculoskeletal: Extremities: no cyanosis and no clubbing Skin: no rashes, warm and dry Neurologic: moves all extremities and awake; no focal motor deficits Psychiatric: A+Ox3, euthymic affect Results & Data Vital Signs (Past 12 Hours) Vital Signs Temp Pulse Pulse Resp BP Pulse Ox 05/03/19 17:06 68 05/03/19 16:00 37.0 C 67 19 132/54 L 97 05/03/19 13:26 69 18 95 05/03/19 11:53 36.5 C 67 16 143/59 H 98 05/03/19 08:23 36.5 C 79 16 154/60 H 95 05/03/19 08:00 76 05/03/19 07:08 73 18 95 Laboratory Results 05/03/19 05/03/19 05/03/19 Range/Units 06:07 06:07 06:07 WBC 5.57 (4.8-10.8) K/uL RBC 2.74 L (4.2-5.4) M/uL Hgb 7.9 L (12.0-16.0) g/dL Hct 25.2 L (37-47) % MCV 92.0 (80-100) fL MCH 28.8 (25-34) pg MCHC 31.3 L (32-36) g/dL RDW Std Deviation 50.7 H (36.4-46.3) fL RDW Coeff of Mio 15.0 H (11.5-14.5) % Plt Count 312 (130-400) K/uL MPV 8.6 (7.4-10.4) fL Immature Gran % (Auto) 0.5 % Neut % (Auto) 66.8 % Lymph % (Auto) 14.9 % Price % (Auto) 12.4 % Eos % (Auto) 5.2 % Baso % (Auto) 0.2 % Immature Gran # (Auto) 0.03 H (0.00-0.02) K/uL Neut # (Auto) 3.72 (1.4-6.5) K/uL Lymph # (Auto) 0.83 L (1.2-3.4) K/uL Price # (Auto) 0.69 H (0.11-0.59) K/uL Eos # (Auto) 0.29 (0-0.5) K/uL Baso # (Auto) 0.01 (0-0.2) K/uL RBC Morphology Unremarkable PT 26.4 H (9.0-12.0) Seconds INR 2.8 H (0.9-1.1) Sodium 139 (136-145) mmol/L Potassium 3.8 (3.5-5.1) mmol/L Chloride 102 (98-107) mmol/L Carbon Dioxide 32 (21-32) mmol/L Anion Gap 5.0 (3-11) BUN 24 H (7-18) mg/dl Creatinine 1.31 H (0.6-1.2) mg/dl Est Cr Clr Drug Dosing 35.8 ml/min Est GFR ( Amer) 44.5 Est GFR (Non-Af Amer) 38.4 BUN/Creatinine Ratio 18.2 (10-20) Glucose 78 (70-99) mg/dl Calcium 8.4 L (8.5-10.1) mg/dl PG Care Time/CCT Total # of Minutes Spent Total Time Spent with Patient: Total time spent is greater than 50% in coordination of care (as documented) at patient's floor/unit and/or counseling patient: (1) Coronary artery disease Associated angina: without angina Coronary Disease-Associated Artery/Lesion type: [place] artery [place] vs. transplanted heart: [place] heart Qualified Code(s): I25.10 - Atherosclerotic heart disease of [place] coronary artery without angina pectoris (2) Anemia Anemia type: unspecified type Qualified Code(s): D64.9 - Anemia, unspecified (3) Dyspnea Dyspnea type: acute respiratory distress Qualified Code(s): R06.03 - Acute respiratory distress (4) Hyperlipidemia Hyperlipidemia type: unspecified Qualified Code(s): E78.5 - Hyperlipidemia, unspecified (5) COPD (chronic obstructive pulmonary disease) COPD type: unspecified COPD Qualified Code(s): J44.9 - Chronic obstructive pulmonary disease, unspecified (6) Squamous cell lung cancer Laterality: right Qualified Code(s): C34.91 - Malignant neoplasm of unspecified part of right bronchus or lung (7) Hypertension Hypertension type: essential hypertension Qualified Code(s): I10 - Essential (primary) hypertension
--- NOTE | 2019-05-03 19:23 | Cardiology Consultation ---
Date of Consultation May 03, 2019 Assessment & Plan (1) Dyspnea: 2. Acute on chronic diastolic heart failure 3. Paroxysmal atrial fibrillation 4. Squamous cell cancer stage Ia post right lower lobectomy 03/2019 5. History of VTE 6. Anemia 7. COPD 8. Hypertension Suspect presenting dyspnea multifactorial but in part related to mild acute on chronic diastolic heart failure. Acute worsening of heart failure likely in part related to cessation of diuretics and will likely need continued maintenance diuretics on discharge After IV diuresis thus far this hospitalization -2 L and appears well-perfused with minimal residual systemic venous congestion. Going forward: Additional IV diuretics tomorrow assuming stable renal function, likely transition to p.o. diuretics next day or 2 Patient now 1 month out from lung lobectomy and with patient/family concerns regarding amiodarone feel okay to discontinue Increase carvedilol to 25 mg twice daily Continue current hydralazine Continue anticoagulation with Coumadin We will continue to follow. History of Present Illness Attending Physician: Danya Dowling MD History of Present Illness Mrs. Link is a very pleasant 78-year-old woman known to me from the outpatient setting and prior hospitalizations. She was hospitalized last month after undergoing right lower lobectomy which revealed stage Ia squamous cell cancer and course was complicated by paroxysmal atrial fibrillation and chronic diastolic heart failure. Her past medical history includes prior Takotsubo cardiomyopathy with resolved LV dysfunction, medically managed severe single-vessel CAD involving her RCA, mild to moderate mitral regurgitation, peripheral vascular disease status post AAA repair, chronic kidney disease, COPD, hypertension and recurrent pulmonary embolism on chronic anticoagulation. During prior hospitalization an episode of sustained atrial fibrillation which broke spontaneously. She then had recurrent episodes of atrial ectopy and was eventually loaded with p.o. amiodarone. She has gradually progressive upper and lower extremity edema in the setting of hypoalbuminemia. Repeat echo showed pre served biventricular function with no significant valvular disease and normal filling pressures. Treated briefly with IV diuretics, complicated by mild KANU. She was discharged to rehab and returned yesterday with progressive dyspnea. During rehab stay diuretics have been discontinued. Patient and daughter concerned that dyspnea secondary to amiodarone. Chest x-ray on admission showed stable right pleural effusion. EKG showed sinus rhythm without new ST changes. Telemetry with no real sustained atrial ectopy. Troponin negative. BNP mildly elevated at 2900. Has been treated with IV Lasix since admission and -2 L. Allergies Allergy/AdvReac Type Severity Reaction Status Date / Time chlorhexidine Allergy Mild HIVES,RED Verified 05/02/19 18:10 RASH Home Medications Home Medications Medication Instructions Recorded Confirmed Type Ayshao Ellipta 1 inh INHALATION QAM 12/23/18 05/02/19 History ferrous sulfate 325 mg PO QAM 12/23/18 05/02/19 History ergocalciferol (vitamin D2) 50,000 50,000 unit PO MONTHLY #3 cap 02/27/19 05/02/19 History unit capsule albuterol sulfate [Ventolin HFA] 2 puff INHALATION Q4H PRN 04/03/19 05/02/19 History simvastatin 40 mg PO HS 04/03/19 05/02/19 History amiodarone 200 mg tablet 200 mg PO BIDM tab 05/01/19 05/02/19 History hydralazine 50 mg tablet 12.5 mg PO BIDM tab 05/01/19 05/02/19 History tiotropium bromide 2.5 2 puffs INHALATION BID #2 gm 05/01/19 05/02/19 History mcg/actuation mist for inhalation warfarin 2 mg tablet See Rx Instructions PO UD tab 05/01/19 05/02/19 History acetaminophen [Mapap 650 mg PO Q4H PRN MDD 3250 MG 05/02/19 05/02/19 History (acetaminophen)] APAP/DAILY carvedilol 12.5 mg PO BIDM 05/02/19 05/02/19 History cyanocobalamin (vitamin B-12) 1,000 mcg PO QAM 05/02/19 05/02/19 History [Vitamin B-12] docusate sodium 100 mg PO BID 05/02/19 05/02/19 History furosemide [Lasix] 20 mg PO QAM 05/02/19 05/02/19 History guaifenesin 600 mg PO BID PRN 05/02/19 05/02/19 History Patient History Medical History Anemia Cardiomyopathy Coronary artery disease NON-OBSRTUCTIVE Mitral regurgitation Nocturnal hypoxemia 2L AT HS 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 Takotsubo syndrome 2016 Lung nodule (Resolved) CKD (chronic kidney disease) BASELINE CREATININE 1.6-1.8 PER CHART REVIEW COPD (chronic obstructive pulmonary disease) History of PA (myocardial infarction) 2016= MEDICALLY MANAGED History of abdominal aortic aneurysm (AAA) S/P REPAIR 2016 Hyperlipidemia Hypertension Multinodular goiter Osteoarthritis Pulmonary embolism RECURRENT (~2012) ON COUMADIN Surgical History AAA (abdominal aortic aneurysm) S/P REPAIR 2016 Status post total replacement of hip (Resolved 04/19/13) History of bladder surgery TURBT History of bronchoscopy EBUS, Navigational bronch with biopsy: 02/21/19: Grade 2 view, MAC 3, ETT 8.5 History of tooth extraction Family History Sister Skin cancer Mother Cancer Other Dyslipidemia Hypertension Malignant neoplasm of bone Social History Preferred Language: Malagasy Communication Ability: Effective [employer] 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: No Beliefs That Will Affect Care: None marital status: / Current Living Situation: Alone Feels Safe at Home: Yes Safety Concerns: Feels Safe At This Time Smoking Status: Former smoker Cigarettes Per Day: 30 Do You Dip or Chew Tobacco: No Smoking End Date: 2007 Second Hand Exposure: No Hx Alcohol Use: No Hx Substance Use: No Review of Systems Review of Systems: All systems reviewed & are unremarkable except as noted in HPI & below Physical Exam Physical Exam: General: Comfortable, frail appearing, no acute distress Eyes: Sclerae anicteric, extraocular movements intact HENT: Oropharynx clear mucous membranes moist, nasal cannula in place Neck: No JVD Lungs: Decreased breath sounds at right base otherwise clear Cardiac: Regular rate and rhythm, no murmurs Abdomen: Soft, nontender, nondistended, positive bowel sounds. Extremities: Well perfused, 1+ edema bilaterally in upper and lower extremities Skin: No rashes or lesions. Neuro: Nonfocal Psych: Alert orient x3, normal affect and mood Results & Data Vital Signs (Past 12 Hours) Vital Signs Temp Pulse Pulse Resp BP Pulse Ox 05/03/19 17:06 68 05/03/19 16:00 37.0 C 67 19 132/54 L 97 05/03/19 13:26 69 18 95 05/03/19 11:53 36.5 C 67 16 143/59 H 98 05/03/19 08:23 36.5 C 79 16 154/60 H 95 05/03/19 08:00 76 (1) Dyspnea Dyspnea type: acute respiratory distress Qualified Code(s): R06.03 - Acute respiratory distress
[2019-05-03] MEDS: SIMVASTATIN 40 MG TAB PO SCH (20:03)
[2019-05-03] MEDS ORDERED: CARVEDILOL 12.5 MG TAB PO ONE (21:46)
--- NOTE | 2019-05-04 01:40 | Consultation Report ---
DATE OF CONSULTATION: 05/03/2019 Amanda Link was seen today at the request of her admitting physicians. The patient had acute respiratory collapse. I know Amanda Link well. She is an 78-year-old female who underwent a thoracoscopic right lower lobectomy for a kpw-nzior-lege lung carcinoma about a month ago. She struggled after surgery, although the case itself was uneventful. She developed atrial fibrillation. She was lethargic. She did have some postoperative changes with a right pleural effusion. I saw her in the office just about a week ago and I thought she looked better. She was at [facility] and after being discharged home for 2 days developed what appeared to be acute congestive heart failure. I have to say I think her x-ray actually looks better. I think that she has very little fluid on the right. This should continue to improve. She is on 2 liters at 97% saturations, but she states she is having a hard time breathing and she is breathing 20 times a minute. She has decreased breath sounds in the right, but her incisions are clean and she is moving air better than she was 2 weeks ago. The patient has other issues too including anemia which I do not think is just anemia of blood loss. She is also fatigued. This could be related to her anemia and her postoperative course. At this point, I would suggest mobilizing her a great deal and we will continue to follow along. For specifics of this consultation, please see Mr. Jose Enrique Teague's note.
[2019-05-04] MEDS: ALBUT/IPRATROP 3MG/0.5MG NEB 3 ML VIAL NEB SCH ×4 (02:38→19:32)
[2019-05-04 06:04] LABS: Basophils # (auto) 0.02 K/uL (0-0.2); Basophils % (auto) 0.4 %; Eosinophils # (auto) 0.28 K/uL (0-0.5); Eosinophils % (auto) 5.8 %; Hematocrit (blood only) 23.3 % (37-47); Hemoglobin 7.4 g/dL (12.0-16.0); Immature Granulocytes # (auto) 0.02 K/uL (0.00-0.02); Immature Granulocytes % (auto) 0.4 %; Lymphocytes # (auto) 0.92 K/uL (1.2-3.4); Mean Corpuscular Hgb Conc 31.8 g/dL (32-36); Mean Corpuscular Volume 92.5 fL (80-100); Mean Platelet Volume 8.4 fL (7.4-10.4); Monocytes # (auto) 0.61 K/uL (0.11-0.59); Monocytes % (auto) 12.6 %; Neutrophils # (auto) 2.98 K/uL (1.4-6.5); Neutrophils % (auto) 61.8 %; Platelet Count 285 K/uL (130-400); RDW Coefficient of Variation 15.3 % (11.5-14.5); RDW Standard Deviation 52.2 fL (36.4-46.3); Red Blood Count 2.52 M/uL (4.2-5.4); White Blood Count 4.83 K/uL (4.8-10.8)
[2019-05-04 06:17] LABS: INR 2.9 (0.9-1.1); Prothrombin Time 27.3 Seconds (9.0-12.0)
[2019-05-04 06:22] LABS: RBC Morphology Unremarkable
[2019-05-04 06:33] LABS: BUN Creatinine Ratio 18.3 (10-20); Creatinine Clr Calc Pharmacy 25.2 ml/min; Est GFR (African American) 29.1; Est GFR (Non-African American) 25.1; Magnesium 2.2 mg/dl (1.8-2.4)
[2019-05-04] MEDS: CYANOCOBALAMIN 500 MCG TABLET (VITAMIN B-12) PO SCH (08:17)
[2019-05-04] MEDS: HydrALAZINE TAB 50 MG TAB PO SCH ×2 (08:18→16:49)
[2019-05-04] MEDS: DOCUSATE SODIUM 100 MG CAP PO SCH ×2 (08:18→20:31)
[2019-05-04] MEDS: CARVEDILOL 25 MG TAB PO SCH ×2 (08:18→16:49)
--- NOTE | 2019-05-04 12:34 | Cardiology Progress Note ---
Date of Service May 04, 2019 Assessment & Plan (1) Acute on chronic diastolic (congestive) heart failure: Thus far, her fluid balance is negative 3.5 L. her creatinine did become more elevated but is still similar to her usual baseline range. Will give another dose of Lasix 40 mg IV x1 today to encourage further diuresis, but less aggressive. Monitor renal function closely. Low-sodium diet. Strict I&Os. From a symptom standpoint, she is improving but not yet back to baseline. She a ppears hypervolemic on exam. (2) Paroxysmal atrial fibrillation: Amiodarone therapy discontinued by Dr. Zuniga yesterday as per patient and family wishes. Monitor for recurrent arrhythmia. She has been in sinus. She is on anticoagulation and has had recurrent pulmonary emboli. (3) Hypertension: Carvedilol was increased yesterday. Blood pressure has improved. Continue current regimen. (4) Coronary artery disease: No angina. Medically managed RCA disease. Continue statin therapy. Continue beta-jose a. Disposition: Cardiology will continue to follow. Dr. Zuniga is her primary owner e [employer] company. Subjective Her breathing is much improved but not yet back to baseline. She denies orthopnea however she did sleep with the head of her bed elevated. She continues to have edema more than her baseline but believes it once again has improved with diuresis thus far. She denies palpitations, syncope, near-syncope, or bleeding. She denies angina. Review of systems: As above. Physical Exam Physical Exam: Gen.: No acute distress. Alert and oriented. HEENT: Anicteric sclera. Neck: Mild JVD. Hepatic jugular reflux noted. Cardiac: Regular. Normal S1-S2. 1/6 systolic murmur. No rubs, or gallops. Pulmonary: Decreased breath sounds right base, otherwise clear. Abdomen: Soft, nontender, nondistended, with normoactive bowel sounds. No bruits noted. Extremities: 2 to 3+ pitting edema left lower extremity long term to the knee. 2+ right lower extremity pitting edema long term to the knee. No cyanosis. Psychiatric: Affect appears appropriate. Results & Data Vital Signs (Past 12 Hours) Vital Signs Temp Pulse Pulse Resp BP Pulse Ox 05/04/19 08:00 63 05/04/19 07:14 64 18 96 05/04/19 06:59 36.9 C 65 17 100/49 L 95 05/04/19 04:00 36.7 C 68 17 138/58 L 95 Intake & Output 05/02/19 05/03/19 05/04/19 05/05/19 06:59 06:59 06:59 06:59 Intake Total 640 / 640 Output Total 1000 / 1000 2875 / 2875 300 / 300 Balance -1000 / -1000 -2235 / -2235 -300 / -300 Weight 83.5 kg 83 kg Laboratory Results Laboratory Results - last 24 hr 05/04/19 05/04/19 05/04/19 05:45 05:45 05:45 WBC 4.83 RBC 2.52 L Hgb 7.4 L Hct 23.3 L MCV 92.5 MCH 29.4 MCHC 31.8 L RDW Std Deviation 52.2 H RDW Coeff of Mio 15.3 H Plt Count 285 MPV 8.4 Immature Gran % (Auto) 0.4 Neut % (Auto) 61.8 Lymph % (Auto) 19.0 Teller % (Auto) 12.6 Eos % (Auto) 5.8 Baso % (Auto) 0.4 Immature Gran # (Auto) 0.02 Neut # (Auto) 2.98 Lymph # (Auto) 0.92 L Teller # (Auto) 0.61 H Eos # (Auto) 0.28 Baso # (Auto) 0.02 RBC Morphology Unremarkable PT 27.3 H INR 2.9 H Sodium 138 Potassium 4.0 Chloride 101 Carbon Dioxide 32 Anion Gap 5.0 BUN 34 H Creatinine 1.86 H D Est Cr Clr Drug Dosing 25.2 Est GFR ( Amer) 29.1 Est GFR (Non-Af Amer) 25.1 BUN/Creatinine Ratio 18.3 Glucose 83 Calcium 8.0 L Magnesium 2.2 Diagnostic Findings Telemetry personally reviewed: Sinus rhythm. No arrhythmia. ECG personally reviewed: ECG 05/02/2019: Sinus rhythm 78 bpm. Anteroseptal infarct. Medications Administered Current Inpatient Medications Acetaminophen (Tylenol) 650 mg PO Q4H PRN PRN Reason: Fever Or Pain Stop: 06/01/19 22:05 Albuterol (Duoneb) 3 ml NEB Q6R SRIDHAR Stop: 06/02/19 01:59 Last Admin: 05/04/19 07:14 Dose: 3 ml Documented by: Albuterol (Ventolin 0.5% 2.5mg/0.5ml) 2.5 mg NEB Q2H PRN PRN Reason: SOB/Wheeze Stop: 06/01/19 22:05 Carvedilol (Coreg) 25 mg PO BIDM [facility] Stop: 06/03/19 07:59 Last Admin: 05/04/19 08:18 Dose: 25 mg Documented by: Cyanocobalamin (Vitamin B-12) 1,000 mcg PO QAM [facility] Stop: 06/02/19 08:59 Last Admin: 05/04/19 08:17 Dose: 1,000 mcg Documented by: Docusate Sodium (Colace) 100 mg PO BID [facility] Stop: 06/01/19 22:44 Last Admin: 05/04/19 08:18 Dose: 100 mg Documented by: Guaifenesin (Mucinex) 600 mg PO BID PRN PRN Reason: Mucous/Cough Stop: 06/01/19 22:05 Last Admin: 05/03/19 08:10 Dose: 600 mg Documented by: Hydralazine HCl (Apresoline) 12.5 mg PO BIDM [facility] Stop: 06/02/19 07:59 Last Admin: 05/04/19 08:18 Dose: 12.5 mg Documented by: Hydralazine HCl (Hydralazine Hcl) 5 mg IV Q6H PRN PRN Reason: hypertension Stop: 06/01/19 22:05 Furosemide 40 mg/ Syringe 4 mls @ 4 mls/min IV NOW ONE Stop: 05/04/19 13:01 Simvastatin (Zocor) 40 mg PO HS [facility] Stop: 06/01/19 22:44 Last Admin: 05/03/19 20:03 Dose: 40 mg Documented by: Warfarin Sodium (Coumadin) 2 mg PO [id number]@1600 [facility] Stop: 06/03/19 15:59 Warfarin Sodium (Coumadin) 1 mg PO [id number]@1600 [facility] Stop: 06/02/19 15:59 Last Admin: 05/03/19 15:40 Dose: 1 mg Documented by: (1) Hypertension Hypertension type: essential hypertension Qualified Code(s): I10 - Essential (primary) hypertension (2) Coronary artery disease Coronary Disease-Associated Artery/Lesion type: [place] artery [place] vs. transplanted heart: [place] heart Associated angina: without angina Qualified Code(s): I25.10 - Atherosclerotic heart disease of [place] coronary artery without angina pectoris
[2019-05-04] MEDS ORDERED: FUROSEMIDE 40 MG in SYRINGE 0 ML IV ONE (13:00)
--- NOTE | 2019-05-04 13:23 | Surgery Progress Note ---
Date of Service May 04, 2019 Assessment & Plan (1) Acute respiratory failure with hypoxia: -pt. improved with diuresis -plans noted by cardiology for continued lasix while monitoring renal function -encouraged ambulation (RN has noted that PT and OT are to evaluate patient later today) -pt. anticoagulated for hx. of PE, so no further DVT prophylaxis noted Subjective Pt. states her breathing feels better since admission. She denies CP. No lightheadedness or palpatations. Discussed with RN--pt. seems to be breathing much more comfortably, particularly with ambulating to restroom. Physical Exam Constitutional: no acute distress Respiratory: no respiratory distress and no labored breathing BS are noted t be decreased at right base Musculoskeletal: 2-3 +LE edema noted Results & Data Vital Signs (Past 12 Hours) Vital Signs Temp Pulse Pulse Resp BP BP Pulse Ox 05/04/19 12:47 36.7 C 66 18 113/61 97 05/04/19 08:00 63 05/04/19 07:14 64 18 96 05/04/19 06:59 36.9 C 65 17 100/49 L 95 05/04/19 04:00 36.7 C 68 17 138/58 L 95
[2019-05-04] MEDS: WARFARIN SOD 2 MG TAB PO SCH (16:49)
--- NOTE | 2019-05-04 17:46 | Hospitalist Progress Note ---
Date of Service May 04, 2019 Assessment & Plan (1) Dyspnea: Patient presented with progressive dyspnea since surgery/lobectomy, acutely worsening over the last 2 days prior to admission. She has multiple reasons for dyspnea to include post-operative pulmonary changes, persistent pleural effusion, COPD, acute on chronic diastolic CHF and deconditioning. She has prior PE and is adequately anticoagulated on Coumadin with a therapeutic INR. Low suspicion for infectious pulmonary process. Patient with elevated BNP, crackles present on exam on admission. Pleural effusion on the right appears stable from prior. She was initially placed on BiPAP, minimal settings of 10/5, 35%. Now weaned to 2 L nasal cannula and much improved after IV diuresis with Lasix as below -Continue treatment for CHF -Continue supplemental O2 as needed and wean off to keep pulse ox greater than 90% -Consult Dr. Roper, appreciate assistance with this case-no thoracentesis needed (2) Acute on chronic diastolic (congestive) heart failure: Patient with known chronic diastolic CHF, mild to moderate mitral regurgitation, and here with progressive dyspnea, pleural effusion, worsening lower extremity edema, weight gain, and elevated BNP. She was diuresed on her most recent admission and then had her Lasix held for acute kidney injury which had improved by the day of discharge. She was then placed on maintenance Lasix which was then discontinued at [facility]. Patient reports she was recently started back again on Lasix 20 mg a day by her PCP on the day prior to admission for worsening lower extremity edema -Since admission, is diuresing, now net -3.5 L, weight is down, weaning off O2, and feels much improved with her dyspnea Still with a lot of lower extremity edema Creatinine bumped up slightly but not too far off her baseline -Continue with IV Lasix 40 mg once daily -Follow BMP in the morning -Continue daily weights, low-sodium diet, strict I's and O's -Continue good blood pressure control-cardiology suggested increasing carvedilol to 25 mg twice daily Appreciate cardiology consultation (3) Acute respiratory failure with hypoxia: Secondary to acute CHF as above along with persistent pleural effusion and pulmonary postoperative changes as above -Continue supplemental O2 and titrate off as tolerated to keep pulse ox greater than 90% -Follow chest x-ray (4) Pleural effusion: As above. Stable from prior CXR. Seen by thoracic surgery here and does not think she needs thoracentesis at this time -Follow chest x-ray (5) Anemia: Hemoglobin with slight decrease again to 7.4 which is not far off from her recent baseline. Normochromic/normocytic, stable from prior. No active bleeding - Iron studies showed anemia of chronic disease when performed 2 weeks ago. - Folate was normal then - B12 was low (168) -> she was started on a B12 supplement during previous admission -Continue cyanocobalamin 1000 mcg PO daily -follow CBC in the morning and transfuse if hemoglobin less than 7 (6) COPD (chronic obstructive pulmonary disease): No acute exacerbation -Continue DuoNeb q 6 hours -Albuterol q 2 hours PRN -Supplemental O2 as above, goal saturation 88-92% -Continue guaifenesin (7) Paroxysmal atrial fibrillation: Remains in NSR, anticoagulated on Coumadin with INR=2.9 Her atrial fibrillation last admission was thought to be secondary to her thoracic surgery in the postoperative period Patient and her daughter think that the amiodarone is causing her problems and would like to discontinue it -Appreciate cardiology consultation -The amiodarone has been discontinued -Continue increased dose of carvedilol 25 mg p.o. twice daily -Continue Coumadin -Follow INR in the morning -Continue telemetry monitoring (8) Squamous cell lung cancer: Surgical cure s/p wedge resection in 03/2019 -Continue to monitor (9) Hyperlipidemia: Chronic. Stable -Continue Simvastatin (10) Hypertension: Chronic. Was fairly poorly controlled upon admission and now much improved with increased dose of Coreg -Continue Coreg at increased dose 25 mg p.o. twice daily -Continue current hydralazine, Lasix as above -Hydralazine 5mg IV q 6 hours PRN SBP > 180 mmHg -Continue to monitor (11) CKD (chronic kidney disease), stage III: Chronic. stable, creatinine baseline is around 1.5 Slightly increased today to 1.86 after twice daily IV diuresis with Lasix -Avoid nephrotoxic agents -Renal dosing where needed -Continue to monitor BUN, Cr, UOP and electrolytes daily -Cautious diuresis (12) Coronary artery disease: With a history of severe single-vessel disease of the RCA that is being medically managed. Patient presently with no chest pain. EKG with suggestion of new infarct with anteroseptal infarct pattern but could be secondary to varying lead placement. Troponin negative Cardiology following -Continue beta-jose a, simvastatin, warfarin (13) History of pulmonary embolism: With history of recurrent PEs, on long-term warfarin -Continue Coumadin (14) DVT prophylaxis: Warfarin Disposition-remain on PCU Subjective Feeling better, no shortness of breath, no chest pain. Still has a lot of leg swelling. Discussed the case with cardiology. Telemetry with normal sinus rhythm and first-degree AV block, rates in the 60s to 70s Review of Systems Review of Systems: All systems reviewed & are unremarkable except as noted in HPI & below Physical Exam Constitutional: WD/WN, vitals as above no acute distress Eyes: PERRL, conjunctivae normal, anicteric sclerae Neck: trachea midline, no thyromegaly Respiratory: normal respiratory effort; no labored breathing Auscultation: + diminished lung sounds (At the right base and middle lung field) and + crackles (Mild bibasilar); no wheezes Cardiovascular: Rate/Rhythm: regular rate and regular rhythm Heart Sounds: + murmur (2 out of 6 left lower sternal border) Extremities: + edema (2+ pitting edema of lower extremities to the distal thighs bilaterally) Gastrointestinal (Abdomen): normal bowel sounds, soft, nontender, no hepatosplenomegaly Musculoskeletal: Extremities: no cyanosis and no clubbing Skin: no rashes, warm and dry Neurologic: moves all extremities and awake; no focal motor deficits Psychiatric: A+Ox3, euthymic affect Results & Data Vital Signs (Past 12 Hours) Vital Signs Temp Pulse Pulse Resp BP BP Pulse Ox 05/04/19 15:05 67 05/04/19 14:55 36.3 C L 70 20 143/64 H 97 05/04/19 14:07 67 18 98 05/04/19 12:47 36.7 C 66 18 113/61 97 05/04/19 08:00 63 05/04/19 07:14 64 18 96 05/04/19 06:59 36.9 C 65 17 100/49 L 95 Laboratory Results 05/04/19 05/04/19 05/04/19 Range/Units 05:45 05:45 05:45 WBC 4.83 (4.8-10.8) K/uL RBC 2.52 L (4.2-5.4) M/uL Hgb 7.4 L (12.0-16.0) g/dL Hct 23.3 L (37-47) % MCV 92.5 (80-100) fL MCH 29.4 (25-34) pg MCHC 31.8 L (32-36) g/dL RDW Std Deviation 52.2 H (36.4-46.3) fL RDW Coeff of Mio 15.3 H (11.5-14.5) % Plt Count 285 (130-400) K/uL MPV 8.4 (7.4-10.4) fL Immature Gran % (Auto) 0.4 % Neut % (Auto) 61.8 % Lymph % (Auto) 19.0 % [place] % (Auto) 12.6 % Eos % (Auto) 5.8 % Baso % (Auto) 0.4 % Immature Gran # (Auto) 0.02 (0.00-0.02) K/uL Neut # (Auto) 2.98 (1.4-6.5) K/uL Lymph # (Auto) 0.92 L (1.2-3.4) K/uL [place] # (Auto) 0.61 H (0.11-0.59) K/uL Eos # (Auto) 0.28 (0-0.5) K/uL Baso # (Auto) 0.02 (0-0.2) K/uL RBC Morphology Unremarkable PT 27.3 H (9.0-12.0) Seconds INR 2.9 H (0.9-1.1) Sodium 138 (136-145) mmol/L Potassium 4.0 (3.5-5.1) mmol/L Chloride 101 (98-107) mmol/L Carbon Dioxide 32 (21-32) mmol/L Anion Gap 5.0 (3-11) BUN 34 H (7-18) mg/dl Creatinine 1.86 H D (0.6-1.2) mg/dl Est Cr Clr Drug Dosing 25.2 ml/min Est GFR ( Amer) 29.1 Est GFR (Non-Af Amer) 25.1 BUN/Creatinine Ratio 18.3 (10-20) Glucose 83 (70-99) mg/dl Calcium 8.0 L (8.5-10.1) mg/dl Magnesium 2.2 (1.8-2.4) mg/dl PG Care Time/CCT Total # of Minutes Spent Total Time Spent with Patient: Total time spent is greater than 50% in coordination of care (as documented) at patient's floor/unit and/or counseling patient: (1) Dyspnea Dyspnea type: acute respiratory distress Qualified Code(s): R06.03 - Acute respiratory distress (2) Anemia Anemia type: unspecified type Qualified Code(s): D64.9 - Anemia, unspecified (3) COPD (chronic obstructive pulmonary disease) COPD type: unspecified COPD Qualified Code(s): J44.9 - Chronic obstructive pulmonary disease, unspecified (4) Squamous cell lung cancer Laterality: right Qualified Code(s): C34.91 - Malignant neoplasm of unspecified part of right bronchus or lung (5) Hyperlipidemia Hyperlipidemia type: unspecified Qualified Code(s): E78.5 - Hyperlipidemia, unspecified (6) Hypertension Hypertension type: essential hypertension Qualified Code(s): I10 - Essential (primary) hypertension (7) Coronary artery disease Coronary Disease-Associated Artery/Lesion type: [place] artery [place] vs. transplanted heart: [place] heart Associated angina: without angina Qualified Code(s): I25.10 - Atherosclerotic heart disease of [place] coronary artery without angina pectoris
[2019-05-04] MEDS: SIMVASTATIN 40 MG TAB PO SCH (20:31)
[2019-05-05] MEDS: ALBUT/IPRATROP 3MG/0.5MG NEB 3 ML VIAL NEB SCH ×2 (02:06→07:12)
[2019-05-05 07:06] LABS: Basophils # (auto) 0.01 K/uL (0-0.2); Basophils % (auto) 0.2 %; Eosinophils % (auto) 6.2 %; Hematocrit (blood only) 24.2 % (37-47); Hemoglobin 7.6 g/dL (12.0-16.0); Immature Granulocytes # (auto) 0.02 K/uL (0.00-0.02); Immature Granulocytes % (auto) 0.4 %; Lymphocytes # (auto) 0.97 K/uL (1.2-3.4); Lymphocytes % (auto) 20.2 %; Mean Corpuscular Hgb Conc 31.4 g/dL (32-36); Mean Corpuscular Volume 91.7 fL (80-100); Mean Platelet Volume 8.5 fL (7.4-10.4); Monocytes # (auto) 0.57 K/uL (0.11-0.59); Monocytes % (auto) 11.9 %; Neutrophils # (auto) 2.94 K/uL (1.4-6.5); Neutrophils % (auto) 61.1 %; Platelet Count 295 K/uL (130-400); RDW Coefficient of Variation 15.5 % (11.5-14.5); RDW Standard Deviation 52.1 fL (36.4-46.3); Red Blood Count 2.64 M/uL (4.2-5.4); White Blood Count 4.81 K/uL (4.8-10.8)
[2019-05-05] MEDS: HydrALAZINE TAB 50 MG TAB PO SCH ×2 (07:32→15:56)
[2019-05-05] MEDS: CARVEDILOL 25 MG TAB PO SCH ×2 (07:32→15:56)
[2019-05-05] MEDS: DOCUSATE SODIUM 100 MG CAP PO SCH ×2 (07:32→21:06)
[2019-05-05] MEDS: CYANOCOBALAMIN 500 MCG TABLET (VITAMIN B-12) PO SCH (07:32)
[2019-05-05 07:34] LABS: BUN Creatinine Ratio 22.2 (10-20); Calcium 8.2 mg/dl (8.5-10.1); Creatinine Clr Calc Pharmacy 27.7 ml/min; Est GFR (African American) 32.7; Est GFR (Non-African American) 28.2; Magnesium 2.1 mg/dl (1.8-2.4)
[2019-05-05 07:39] LABS: RBC Morphology Unremarkable
--- NOTE | 2019-05-05 10:13 | Surgery Progress Note ---
Date of Service May 05, 2019 Assessment & Plan (1) Acute respiratory failure with hypoxia: -pt. continues to improved with diuresis -will repeat CXR in am -continue to encourage ambulation -pt. anticoagulated for hx. of PE, so no further DVT prophylaxis noted Subjective Pt. states her breathing continues to improve. She denies CP. No lightheadedness or palpitations. Discussed with RN-- no issues identified. Physical Exam Respiratory: BS are noted to be decreased at right base Cardiovascular: Rate/Rhythm: regular rate Results & Data Vital Signs (Past 12 Hours) Vital Signs Temp Pulse Pulse Resp BP BP Pulse Ox 05/05/19 08:00 65 05/05/19 07:37 36.7 C 66 20 123/52 L 98 05/05/19 07:20 98 H 18 97 05/05/19 03:47 37.0 C 100 H 18 125/46 L 93 05/04/19 23:59 36.9 C 66 17 126/48 L 98
--- NOTE | 2019-05-05 10:36 | Cardiology Progress Note ---
Date of Service May 05, 2019 Assessment & Plan (1) Acute on chronic diastolic (congestive) heart failure: Thus far, her fluid balance is negative 4.2 L throughout this hospital stay. Renal function still within her baseline. She still appears to be hypervolemic. Lasix 40 mg IV b.i.d. today and can be reassessed tomorrow to determine further diuretic therapy. Monitor renal function closely. Low-sodium diet. Strict I&Os. From a symptom standpoint, she is improving but not yet back to baseline. (2) Paroxysmal atrial fibrillation: Amiodarone therapy discontinued by Dr. Zuniga yesterday as per patient and family wishes. Monitor for recurrent arrhythmia. She remains in sinus. She is on anticoagulation and has had recurrent pulmonary emboli. Monitor blood counts closely. (3) Hypertension: Carvedilol was increased earlier this hospitalization. Blood pressure has improved and she is now mostly normotensive. Continue current regimen. (4) Coronary artery disease: No angina/chest pain. Medically managed RCA disease. Continue statin therapy. Continue beta-jose a. (5) Anemia: This is being managed and followed by primary hospitalist service. Will order heme check stools. (6) Disposition: Dr. Zuniga, her primary filing or registry clerk, will resume her cardiology care tomorrow. Subjective Her breathing continues to improve but is not yet back to baseline. She believes that her legs are much more swollen than usual still. She denies chest pain, palpitations, syncope, near-syncope, or bleeding. She has ambulated in her room to the restroom. Review of systems: As above. Physical Exam Physical Exam: Gen.: No acute distress. Alert and oriented. HEENT: Anicteric sclera. Neck: Mild JVD. Hepatic jugular reflux noted. Cardiac: Regular. Normal S1-S2. 1/6 systolic murmur. No rubs, or gallops. Pulmonary: Decreased breath sounds right base, otherwise clear, without rales. Abdomen: Soft, nontender, nondistended, with normoactive bowel sounds. No bruits noted. Extremities: 2 to 3+ left lower extremity pitting edema fdc to the knee. 2+ right lower extremity pitting edema fdc to the knee. No cyanosis. Psychiatric: Affect appears appropriate. Results & Data Vital Signs (Past 12 Hours) Vital Signs Temp Pulse Pulse Resp BP BP Pulse Ox 05/05/19 08:00 65 05/05/19 07:37 36.7 C 66 20 123/52 L 98 05/05/19 07:20 98 H 18 97 05/05/19 03:47 37.0 C 100 H 18 125/46 L 93 05/04/19 23:59 36.9 C 66 17 126/48 L 98 Intake & Output 05/03/19 05/04/19 05/05/19 05/06/19 06:59 06:59 06:59 06:59 Intake Total 640 / 640 1240 / 1240 Output Total 1000 / 1000 2875 / 2875 2250 / 2250 Balance -1000 / -1000 -2235 / -2235 -1010 / -1010 Weight 83.5 kg 83 kg 83 kg Laboratory Results Laboratory Results - last 24 hr 05/05/19 05/05/19 06:42 06:42 WBC 4.81 RBC 2.64 L Hgb 7.6 L Hct 24.2 L MCV 91.7 MCH 28.8 MCHC 31.4 L RDW Std Deviation 52.1 H RDW Coeff of Mio 15.5 H Plt Count 295 MPV 8.5 Immature Gran % (Auto) 0.4 Neut % (Auto) 61.1 Lymph % (Auto) 20.2 [place] % (Auto) 11.9 Eos % (Auto) 6.2 Baso % (Auto) 0.2 Immature Gran # (Auto) 0.02 Neut # (Auto) 2.94 Lymph # (Auto) 0.97 L [place] # (Auto) 0.57 Eos # (Auto) 0.30 Baso # (Auto) 0.01 RBC Morphology Unremarkable Sodium 139 Potassium 4.0 Chloride 101 Carbon Dioxide 33 H Anion Gap 5.0 BUN 38 H Creatinine 1.69 H Est Cr Clr Drug Dosing 27.7 Est GFR ( Amer) 32.7 Est GFR (Non-Af Amer) 28.2 BUN/Creatinine Ratio 22.2 H Glucose 85 Calcium 8.2 L Magnesium 2.1 Diagnostic Findings Telemetry personally reviewed: No arrhythmia. Medications Administered Current Inpatient Medications Acetaminophen (Tylenol) 650 mg PO Q4H PRN PRN Reason: Fever Or Pain Stop: 06/01/19 22:05 Albuterol (Ventolin 0.5% 2.5mg/0.5ml) 2.5 mg NEB Q2H PRN PRN Reason: SOB/Wheeze Stop: 06/01/19 22:05 Albuterol (Combivent Respimat) 1 puffs INH Q6 [facility] Stop: 06/04/19 11:59 Carvedilol (Coreg) 25 mg PO BIDM [facility] Stop: 06/03/19 07:59 Last Admin: 05/05/19 07:32 Dose: 25 mg Documented by: Cyanocobalamin (Vitamin B-12) 1,000 mcg PO QAM [facility] Stop: 06/02/19 08:59 Last Admin: 05/05/19 07:32 Dose: 1,000 mcg Documented by: Docusate Sodium (Colace) 100 mg PO BID [facility] Stop: 06/01/19 22:44 Last Admin: 05/05/19 07:32 Dose: 100 mg Documented by: Guaifenesin (Mucinex) 600 mg PO BID PRN PRN Reason: Mucous/Cough Stop: 06/01/19 22:05 Last Admin: 05/03/19 08:10 Dose: 600 mg Documented by: Hydralazine HCl (Apresoline) 12.5 mg PO BIDM [facility] Stop: 06/02/19 07:59 Last Admin: 05/05/19 07:32 Dose: 12.5 mg Documented by: Hydralazine HCl (Hydralazine Hcl) 5 mg IV Q6H PRN PRN Reason: hypertension Stop: 06/01/19 22:05 Furosemide 40 mg/ Syringe 4 mls @ 4 mls/min IV BID [facility] Stop: 05/05/19 23:30 Simvastatin (Zocor) 40 mg PO HS [facility] Stop: 06/01/19 22:44 Last Admin: 05/04/19 20:31 Dose: 40 mg Documented by: Warfarin Sodium (Coumadin) 2 mg PO [id number] [facility] Stop: 06/03/19 15:59 Last Admin: 05/04/19 16:49 Dose: 2 mg Documented by: Warfarin Sodium (Coumadin) 1 mg PO [id number] [facility] Stop: 06/02/19 15:59 Last Admin: 05/03/19 15:40 Dose: 1 mg Documented by: (1) Hypertension Hypertension type: essential hypertension Qualified Code(s): I10 - Essential (primary) hypertension (2) Coronary artery disease Coronary Disease-Associated Artery/Lesion type: [place] artery [place] vs. transplanted heart: [place] heart Associated angina: without angina Qualified Code(s): I25.10 - Atherosclerotic heart disease of [place] coronary artery without angina pectoris (3) Anemia Anemia type: unspecified type Qualified Code(s): D64.9 - Anemia, unspecified
[2019-05-05] MEDS: FUROSEMIDE 40 MG in SYRINGE 0 ML IV SCH ×2 (10:52→21:06)
[2019-05-05] MEDS: IPRATROPIUM BROMIDE/ALBUTEROL respimat INH INH SCH ×2 (10:59→17:02)
[2019-05-05] MEDS: WARFARIN SOD 1 MG TAB PO SCH (15:56)
[2019-05-05] MEDS ORDERED: SENNA 8.6 MG TAB PO STA (17:19)
--- NOTE | 2019-05-05 17:19 | Hospitalist Progress Note ---
Date of Service May 05, 2019 Assessment & Plan (1) Dyspnea: Patient presented with progressive dyspnea since surgery/lobectomy, acutely worsening over the last 2 days prior to admission. She has multiple reasons for dyspnea to include post-operative pulmonary changes, persistent pleural effusion, COPD, acute on chronic diastolic CHF and deconditioning. She has prior PE and is adequately anticoagulated on Coumadin with a therapeutic INR. Low suspicion for infectious pulmonary process. Patient with elevated BNP, crackles present on exam on admission. Pleural effusion on the right appears stable from prior. She was initially placed on BiPAP, minimal settings of 10/5, 35%. Now weaned to 2 L nasal cannula and much improved after IV diuresis with Lasix as below -Continue treatment for CHF -Continue supplemental O2 as needed and wean off to keep pulse ox greater than 90% -Consult Dr. Roper, appreciate assistance with this case-no thoracentesis needed (2) Acute on chronic diastolic (congestive) heart failure: Patient with known chronic diastolic CHF, mild to moderate mitral regurgitation, and here with progressive dyspnea, pleural effusion, worsening lower extremity edema, weight gain, and elevated BNP. She was diuresed on her most recent admission and then had her Lasix held for acute kidney injury which had improved by the day of discharge. She was then placed on maintenance Las[facility] Patient reports she was recently started back again on Lasix 20 mg a day by her PCP on the day prior to admission for worsening lower extremity edema -Since admission, is diuresing, now net -4.2 L, weight is down by 3.3 kg, weaning off O2, and feels much improved with her dyspnea Still with a lot of lower extremity edema but slightly improved today Renal function holding steady with diuresis -Continue with IV Lasix 40 mg twice daily -Follow BMP in the morning -Continue daily weights, low-sodium diet, strict I's and O's -Continue good blood pressure control-cardiology suggested increasing carvedilol to 25 mg twice daily upon admission which has been done Appreciate cardiology consultation (3) Acute respiratory failure with hypoxia: Secondary to acute CHF as above along with persistent pleural effusion and pulmonary postoperative changes as above -Continue supplemental O2 and titrate off as tolerated to keep pulse ox greater than 90% -Follow chest x-ray (4) Pleural effusion: As above. Stable from prior CXR. Seen by thoracic surgery here and does not think she needs thoracentesis at this time -Follow chest x-ray in the morning (5) Anemia: Hemoglobin with slight decrease this admission but stable at 7.6-this is not too far off from her recent baseline. Normochromic/normocytic, stable from prior. No active bleeding - Iron studies showed anemia of chronic disease when performed 2 weeks ago. - Folate was normal then - B12 was low (168) -> she was started on a B12 supplement during previous admission -Continue cyanocobalamin 1000 mcg PO daily -follow CBC in the morning and transfuse if hemoglobin less than 7-trying to avoid volume overload with transfusions unless absolutely necessary (6) COPD (chronic obstructive pulmonary disease): No acute exacerbation -Continue DuoNeb q 6 hours -Albuterol q 2 hours PRN -Supplemental O2 as above, goal saturation 88-92% -Continue guaifenesin (7) Paroxysmal atrial fibrillation: Remains in NSR, anticoagulated on Coumadin with INR=2.9 on 05/04 Her atrial fibrillation last admission was thought to be secondary to her thoracic surgery in the postoperative period Patient and her daughter think that the amiodarone is causing her problems and would like to discontinue it -Appreciate cardiology consultation -The amiodarone has been discontinued now -Continue increased dose of carvedilol 25 mg p.o. twice daily -Continue Coumadin -Follow INR in the morning -Continue telemetry monitoring (8) Squamous cell lung cancer: Surgical cure s/p wedge resection in 03/2019 -Continue to monitor (9) Hyperlipidemia: Chronic. Stable -Continue Simvastatin (10) Hypertension: Chronic. Was fairly poorly controlled upon admission and now much improved with increased dose of Coreg -Continue Coreg at increased dose 25 mg p.o. twice daily -Continue current hydralazine, Lasix as above -Hydralazine 5mg IV q 6 hours PRN SBP > 180 mmHg -Continue to monitor (11) CKD (chronic kidney disease), stage III: Chronic. stable, creatinine baseline is around 1.5 Improved today at 1.69 with IV diuresis -Avoid nephrotoxic agents -Renal dosing where needed -Continue to monitor BUN, Cr, UOP and electrolytes daily -Cautious diuresis (12) Coronary artery disease: With a history of severe single-vessel disease of the RCA that is being medically managed. Patient presently with no chest pain. EKG with suggestion of new infarct with anteroseptal infarct pattern but could be secondary to varying lead placement. Troponin negative Cardiology following -Continue beta-jose a, simvastatin, warfarin (13) History of pulmonary embolism: With history of recurrent PEs, on long-term warfarin -Continue Coumadin (14) DVT prophylaxis: Warfarin Disposition-remain on PCU, will likely need several more days of IV diuresis Subjective Patient reports she walked around the room with physical therapy today and felt a little off balance. She does want to try walking in the halls after dinner. She denies shortness of breath but remains on supplemental O2. Denies chest pain. No nausea or vomiting. She has actually not had a bowel movement in several days. Still feels her legs are very swollen. Telemetry with sinus rhythm with first-degree AV block, rates in the 60s to 70s, no ectopy. I discussed her case with the billiard player today. Review of Systems Review of Systems: All systems reviewed & are unremarkable except as noted in HPI & below Physical Exam Constitutional: WD/WN, vitals as above no acute distress Eyes: PERRL, conjunctivae normal, anicteric sclerae Neck: trachea midline, no thyromegaly Respiratory: normal respiratory effort; no labored breathing Auscultation: + diminished lung sounds (At the right base and middle lung field); no wheezes Cardiovascular: Rate/Rhythm: regular rate and regular rhythm Heart Sounds: + murmur (2 out of 6 left lower sternal border) Extremities: + edema (2+ pitting edema of lower extremities to the knees bilaterally, slightly improved from previous) Gastrointestinal (Abdomen): normal bowel sounds, soft, nontender, no hepatosplenomegaly Musculoskeletal: Extremities: no cyanosis and no clubbing Skin: no rashes, warm and dry Neurologic: moves all extremities and awake; no focal motor deficits Psychiatric: A+Ox3, euthymic affect Results & Data Vital Signs (Past 12 Hours) Vital Signs Temp Pulse Pulse Resp BP Pulse Ox 05/05/19 15:42 36.7 C 69 20 115/60 99 05/05/19 11:49 36.7 C 68 18 120/65 97 05/05/19 08:00 65 05/05/19 07:37 36.7 C 66 20 123/52 L 98 05/05/19 07:20 98 H 18 97 Laboratory Results 05/05/19 05/05/19 Range/Units 06:42 06:42 WBC 4.81 (4.8-10.8) K/uL RBC 2.64 L (4.2-5.4) M/uL Hgb 7.6 L (12.0-16.0) g/dL Hct 24.2 L (37-47) % MCV 91.7 (80-100) fL MCH 28.8 (25-34) pg MCHC 31.4 L (32-36) g/dL RDW Std Deviation 52.1 H (36.4-46.3) fL RDW Coeff of Mio 15.5 H (11.5-14.5) % Plt Count 295 (130-400) K/uL MPV 8.5 (7.4-10.4) fL Immature Gran % (Auto) 0.4 % Neut % (Auto) 61.1 % Lymph % (Auto) 20.2 % [place] % (Auto) 11.9 % Eos % (Auto) 6.2 % Baso % (Auto) 0.2 % Immature Gran # (Auto) 0.02 (0.00-0.02) K/uL Neut # (Auto) 2.94 (1.4-6.5) K/uL Lymph # (Auto) 0.97 L (1.2-3.4) K/uL [place] # (Auto) 0.57 (0.11-0.59) K/uL Eos # (Auto) 0.30 (0-0.5) K/uL Baso # (Auto) 0.01 (0-0.2) K/uL RBC Morphology Unremarkable Sodium 139 (136-145) mmol/L Potassium 4.0 (3.5-5.1) mmol/L Chloride 101 (98-107) mmol/L Carbon Dioxide 33 H (21-32) mmol/L Anion Gap 5.0 (3-11) BUN 38 H (7-18) mg/dl Creatinine 1.69 H (0.6-1.2) mg/dl Est Cr Clr Drug Dosing 27.7 ml/min Est GFR ( Amer) 32.7 Est GFR (Non-Af Amer) 28.2 BUN/Creatinine Ratio 22.2 H (10-20) Glucose 85 (70-99) mg/dl Calcium 8.2 L (8.5-10.1) mg/dl Magnesium 2.1 (1.8-2.4) mg/dl PG Care Time/CCT Total # of Minutes Spent Total Time Spent with Patient: Total time spent is greater than 50% in coordi nation of care (as documented) at patient's floor/unit and/or counseling patient: (1) Dyspnea Dyspnea type: acute respiratory distress Qualified Code(s): R06.03 - Acute respiratory distress (2) Anemia Anemia type: unspecified type Qualified Code(s): D64.9 - Anemia, unspecified (3) COPD (chronic obstructive pulmonary disease) COPD type: unspecified COPD Qualified Code(s): J44.9 - Chronic obstructive pulmonary disease, unspecified (4) Squamous cell lung cancer Laterality: right Qualified Code(s): C34.91 - Malignant neoplasm of unspecified part of right bronchus or lung (5) Hyperlipidemia Hyperlipidemia type: unspecified Qualified Code(s): E78.5 - Hyperlipidemia, unspecified (6) Hypertension Hypertension type: essential hypertension Qualified Code(s): I10 - Essential (primary) hypertension (7) Coronary artery disease Coronary Disease-Associated Artery/Lesion type: [place] artery [place] vs. transplanted heart: [place] heart Associated angina: without angina Qualified Code(s): I25.10 - Atherosclerotic heart disease of [place] coronary artery without angina pectoris
[2019-05-05] MEDS: SIMVASTATIN 40 MG TAB PO SCH (21:06)
[2019-05-06] MEDS: IPRATROPIUM BROMIDE/ALBUTEROL respimat INH INH SCH ×4 (00:16→17:31)
[2019-05-06 06:33] LABS: Basophils # (auto) 0.02 K/uL (0-0.2); Basophils % (auto) 0.4 %; Eosinophils # (auto) 0.29 K/uL (0-0.5); Eosinophils % (auto) 5.4 %; Hemoglobin 7.6 g/dL (12.0-16.0); Immature Granulocytes # (auto) 0.02 K/uL (0.00-0.02); Immature Granulocytes % (auto) 0.4 %; Lymphocytes # (auto) 1.11 K/uL (1.2-3.4); Lymphocytes % (auto) 20.8 %; Mean Corpuscular Hgb Conc 31.7 g/dL (32-36); Mean Platelet Volume 8.5 fL (7.4-10.4); Monocytes # (auto) 0.56 K/uL (0.11-0.59); Monocytes % (auto) 10.5 %; Neutrophils # (auto) 3.34 K/uL (1.4-6.5); Neutrophils % (auto) 62.5 %; Platelet Count 284 K/uL (130-400); RDW Coefficient of Variation 15.5 % (11.5-14.5); RDW Standard Deviation 52.6 fL (36.4-46.3); Red Blood Count 2.61 M/uL (4.2-5.4); White Blood Count 5.34 K/uL (4.8-10.8)
[2019-05-06 07:01] LABS: RBC Morphology Unremarkable
--- NOTE | 2019-05-06 07:02 | XRay Report ---
XR chest 2V routine HISTORY: 78 years-old Female effusion follow-up study in a patient with right-sided pleural effusion COMPARISON: Chest radiograph 05/03/2019, chest radiograph 04/23/2019. TECHNIQUE: PA and lateral views of the chest FINDINGS: Cardiomediastinal and hilar silhouettes are unchanged. Compensatory hyperinflation of the left lung. Ill-defined 1.9 cm opacity about the lateral left lung base redemonstrated, possibly from summation d ensity. Unchanged right lung volume loss with right pleural effusion and persistent right midlung and right lung base consolidation. Degenerative changes of the shoulders and spine. Vascular calcificati ons noted. Compression deformity of what appears to be either T12 or L1 redemonstrated. IMPRESSION: 1. Unchanged right pleural effusion with right midlung and right lung base consolidation. 2. Ill-defined 1.9 cm opacity of the left lung base, possibly secondary to summation density. The above report was generated using voice recognition software. It may contain grammatical, syntax o r spelling errors. Electronically signed by: Go Huerta M.D. 05/06/2019 7:01 AM
[2019-05-06 07:05] LABS: BUN Creatinine Ratio 24.7 (10-20); Calcium 8.1 mg/dl (8.5-10.1); Creatinine Clr Calc Pharmacy 26.7 ml/min; Est GFR (African American) 31.1; Est GFR (Non-African American) 26.8; Magnesium 2.1 mg/dl (1.8-2.4)
--- NOTE | 2019-05-06 09:26 | Cardiology Progress Note ---
Date of Service May 06, 2019 Assessment & Plan (1) Acute on chronic diastolic (congestive) heart failure: 2. Paroxysmal atrial fibrillation 3. Squamous cell cancer stage Ia post right lower lobectomy 03/2019 4. History of VTE 5. Anemia 6. COPD 7. Hypertension Good diuresis yesterday, -2 L (weight unchanged), negative more than 6 L over admission. Renal function stable Mild residual systemic venous congestion. Remains in sinus rhythm without significant ectopy off amiodarone Additional 40 IV Lasix today Continue current Coreg 25 mg BID. Continue anticoagulation with Coumadin. Continue hydralazine, continue statin Subjective Feeling somewhat better today. Breathing easier. Able to do a lap in the halls yesterday. Denies any chest pain. Telemetry reviewedno significant arrhythmia Review of Systems Review of Systems: All systems reviewed & are unremarkable except as noted in HPI & below Physical Exam Physical Exam: General: Comfortable, no acute distress, nasal cannula in place, sitting up in chair HEENT: Sclerae anicteric, mucous membranes moist Lungs: Clear to auscultation, decreased breath sounds at right base Cardiac: Regular rate and rhythm, infrequent ectopy, no JVD Abdomen: Soft, nontender, nondistended, positive bowel sounds. Extremities: Warm, well perfused, 1-2+ edema up to lower bill Neuro: Nonfocal Psych: Alert orient x3, normal affect and mood Results & Data Vital Signs (Past 12 Hours) Vital Signs Temp Pulse Pulse Resp BP BP Pulse Ox 05/06/19 08:30 37 C 73 18 120/62 97 05/06/19 07:49 67 05/06/19 03:54 36.6 C 69 19 133/54 L 98 05/05/19 23:43 37.1 C 72 20 141/54 H 96
[2019-05-06] MEDS: DOCUSATE SODIUM 100 MG CAP PO SCH ×2 (09:46→20:58)
[2019-05-06] MEDS: HydrALAZINE TAB 50 MG TAB PO SCH ×2 (09:46→17:32)
[2019-05-06] MEDS: CYANOCOBALAMIN 500 MCG TABLET (VITAMIN B-12) PO SCH (09:46)
[2019-05-06] MEDS: CARVEDILOL 25 MG TAB PO SCH ×2 (09:46→17:31)
[2019-05-06] MEDS ORDERED: FUROSEMIDE 40 MG/4 ML VIAL IV STA (12:50)
--- NOTE | 2019-05-06 12:53 | Hospitalist Progress Note ---
Date of Service May 06, 2019 Assessment & Plan (1) Acute on chronic diastolic (congestive) heart failure: Patient with known chronic diastolic CHF, mild to moderate mitral regurgitation, and here with progressive dyspnea, pleural effusion, worsening lower extremity edema, weight gain, and elevated BNP. - Patient reports she was recently started back again on Lasix 20 mg a day by her PCP on the day prior to admission for worsening lower extremity edema - Now at net -6.5L; weight down to 63 kg from 68 on admission. - Lasix 40mg IV today (2) Dyspnea: Patient presented with progressive dyspnea since surgery/lobectomy, acutely worsening over the last 2 days prior to admission. She has multiple reasons for dyspnea to include post-operative pulmonary changes, persistent pleural effusion, COPD, acute on chronic diastolic CHF, and deconditioning. - Consulted Dr. Roper - no thoracentesis needed - Heart failure plan as above (3) Acute respiratory failure with hypoxia: Secondary to acute CHF as above along with persistent pleural effusion and pulmonary postoperative changes as above - Continue supplemental O2 and titrate off as tolerated to keep pulse ox greater than 90% (4) Pleural effusion: As above. Stable from prior CXR. - Seen by thoracic surgery here and does not think she needs thoracentesis at this time. (5) Anemia: Hemoglobin with slight decrease this admission but stable at 7.6 - this is not too far off from her recent baseline. Normochromic/normocytic, stable from prior. No active bleeding. - Iron studies showed anemia of chronic disease when performed 2 weeks ago. - Folate was normal then - B12 was low (168) -> she was started on a B12 supplement during previous admission - Continue cyanocobalamin 1000 mcg PO daily (6) COPD (chronic obstructive pulmonary disease): No acute exacerbation. - Albuterol standing and PRN - Supplemental O2 as above, goal saturation 88-92% (7) Paroxysmal atrial fibrillation: Remains in NSR, anticoagulated on Coumadin with INR = 2.9 on 05/04. Her atrial fibrillation last admission was thought to be secondary to her thoracic surgery in the postoperative period. - Patient and her daughter felt that the amiodarone is causing her problems, and it was discontinued. - Appreciate cardiology consultation - Continue increased dose of carvedilol 25 mg p.o. twice daily - Continue warfarin (8) Squamous cell lung cancer: Surgical cure s/p wedge resection in 03/2019. - Continue to monitor (9) Hyperlipidemia: Chronic. Stable. - Continue Simvastatin (10) Hypertension: Chronic. Was fairly poorly controlled upon admission and now much improved with increased dose of Coreg. - Continue Coreg at increased dose 25 mg p.o. twice daily - Continue current hydralazine, Lasix as above - Hydralazine 5mg IV q 6 hours PRN SBP > 180 mmHg - Continue to monitor (11) CKD (chronic kidney disease), stage III: Chronic. Stable, creatinine baseline is around 1.5. - Monitor Cr (12) Coronary artery disease: With a history of severe single-vessel disease of the RCA that is being medically managed. Patient presently with no chest pain. - Continue beta-jose a, simvastatin, warfarin (13) History of pulmonary embolism: With history of recurrent PEs, on long-term warfarin. - Continue Coumadin (14) DVT prophylaxis: Warfarin Subjective Feeling better today, though still with swelling in the legs and arms. Review of Systems Review of Systems: All systems reviewed & are unremarkable except as noted in HPI & below Physical Exam Constitutional: WD/WN, vitals as above no acute distress Eyes: PERRL, conjunctivae normal, anicteric sclerae Neck: trachea midline, no thyromegaly Respiratory: normal respiratory effort; no labored breathing Auscultation: + diminished lung sounds (At the right base and middle lung field); no wheezes Cardiovascular: Rate/Rhythm: regular rate and regular rhythm Heart Sounds: + murmur (2 out of 6 left lower sternal border) Extremities: + edema (2+ pitting edema of lower extremities to the knees bilaterally, slightly improved from previous) Gastrointestinal (Abdomen): normal bowel sounds, soft, nontender, no hepatosplenomegaly Musculoskeletal: Extremities: no cyanosis and no clubbing Skin: no rashes, warm and dry Neurologic: moves all extremities and awake; no focal motor deficits Psychiatric: A+Ox3, euthymic affect Results & Data Vital Signs (Past 12 Hours) Vital Signs Temp Pulse Pulse Resp BP BP Pulse Ox 05/06/19 11:47 36.8 C 70 18 121/48 L 97 05/06/19 08:30 37 C 73 18 120/62 97 05/06/19 07:49 67 05/06/19 03:54 36.6 C 69 19 133/54 L 98 PG Care Time/CCT Total # of Minutes Spent Total Time Spent with Patient: Total time spent is greater than 50% in coordination of care (as documented) at patient's floor/unit and/or counseling patient: (1) Coronary artery disease Associated angina: without angina Coronary Disease-Associated Artery/Lesion type: [place] artery [place] vs. transplanted heart: [place] heart Qualified Code(s): I25.10 - Atherosclerotic heart disease of [place] coronary artery without angina pectoris (2) Anemia Anemia type: unspecified type Qualified Code(s): D64.9 - Anemia, unspecified (3) Dyspnea Dyspnea type: acute respiratory distress Qualified Code(s): R06.03 - Acute respiratory distress (4) Hyperlipidemia Hyperlipidemia type: unspecified Qualified Code(s): E78.5 - Hyperlipidemia, unspecified (5) COPD (chronic obstructive pulmonary disease) COPD type: unspecified COPD Qualified Code(s): J44.9 - Chronic obstructive pulmonary disease, unspecified (6) Squamous cell lung cancer Laterality: right Qualified Code(s): C34.91 - Malignant neoplasm of unspecified part of right bronchus or lung (7) Hypertension Hypertension type: essential hypertension Qualified Code(s): I10 - Essential (primary) hypertension
[2019-05-06] MEDS ORDERED: FUROSEMIDE 40 MG in SYRINGE 0 ML IV ONE (13:00)
[2019-05-06] MEDS ORDERED: POLYETHYLENE (MIRALAX) 17 GM PACK PO ONE (13:32)
[2019-05-06] MEDS: WARFARIN SOD 1 MG TAB PO SCH (15:59)
--- NOTE | 2019-05-06 20:19 | Progress Note ---
DATE: 05/02/2019 Ms. Link was seen today. She feels much better. She is down to 2 liters with 100% saturation and sounds much better. Her x-ray still shows some fluid on the right, but it is improved. She has improved with diuresis. I am not concerned about the opacity the left lung base as we have done multiple CT scans on her and there is nothing that I am very concerned about. We will continue following her but I think she definitely appears better clinically. LUNA
[2019-05-06] MEDS: SIMVASTATIN 40 MG TAB PO SCH (20:57)
[2019-05-07] MEDS: IPRATROPIUM BROMIDE/ALBUTEROL respimat INH INH SCH ×5 (00:54→23:31)
[2019-05-07 07:16] LABS: INR 2.8 (0.9-1.1); Prothrombin Time 26.6 Seconds (9.0-12.0)
[2019-05-07 07:25] LABS: BUN Creatinine Ratio 25.8 (10-20); Calcium 8.4 mg/dl (8.5-10.1); Creatinine Clr Calc Pharmacy 28.3 ml/min; Est GFR (African American) 33.9; Est GFR (Non-African American) 29.2; Potassium 3.9 mmol/L (3.5-5.1)
[2019-05-07] MEDS ORDERED: FUROSEMIDE 40 MG/4 ML VIAL IV STA (07:33)
[2019-05-07] MEDS: HydrALAZINE TAB 50 MG TAB PO SCH ×2 (09:23→17:45)
[2019-05-07] MEDS: CARVEDILOL 25 MG TAB PO SCH ×2 (09:24→17:47)
[2019-05-07] MEDS: DOCUSATE SODIUM 100 MG CAP PO SCH ×2 (09:24→20:39)
[2019-05-07] MEDS: CYANOCOBALAMIN 500 MCG TABLET (VITAMIN B-12) PO SCH (09:24)
--- NOTE | 2019-05-07 11:52 | Cardiology Progress Note ---
Date of Service May 07, 2019 Assessment & Plan (1) Acute on chronic diastolic (congestive) heart failure: 2. Paroxysmal atrial fibrillation 3. Squamous cell cancer stage Ia post right lower lobectomy 03/2019 4. History of VTE 5. Anemia 6. COPD 7. Hypertension Net even yesterday. Negative more than 6 L over admission. Renal function stable Mild residual systemic venous congestion. Remains in sinus rhythm without significant ectopy off amiodarone Agree with additional 40 IV Lasix today. If modest urine output would give additional IV dose this afternoon. Plan to transition to p.o. maintenance Lasix tomorrow, next day Continue current Coreg 25 mg BID. Continue anticoagulation with Coumadin. Continue hydralazine, continue statin Subjective Feeling well today. Slept better last night. Breathing easier. Able to do 2 laps in the halls yesterday. Denies any chest pain. Telemetry reviewedno significant arrhythmia Review of Systems Review of Systems: All systems reviewed & are unremarkable except as noted in HPI & below Physical Exam Physical Exam: General: Comfortable, no acute distress, sitting up in chair nasal cannula in place HEENT: Sclerae anicteric, mucous membranes moist Lungs: Clear to auscultation bilaterally, no rhonchi or wheezes Cardiac: Regular rate and rhythm, no murmurs. No JVD. Abdomen: Soft, nontender, nondistended, positive bowel sounds. Extremities: Warm, 1-2+ edema to lower bill bilaterally Skin: No rashes or lesions. Neuro: Nonfocal Psych: Alert orient x3, normal affect and mood Results & Data Vital Signs (Past 12 Hours) Vital Signs Temp Pulse Pulse Resp BP Pulse Ox 05/07/19 07:39 67 05/07/19 07:05 36.8 C 68 17 138/51 L 97 05/07/19 04:00 36.9 C 68 18 137/61 97 05/07/19 00:00 37.1 C 69 17 133/52 L 97
--- NOTE | 2019-05-07 13:09 | Hospitalist Progress Note ---
Date of Service May 07, 2019 Assessment & Plan (1) Acute on chronic diastolic (congestive) heart failure: Patient with known chronic diastolic CHF, mild to moderate mitral regurgitation, and here with progressive dyspnea, pleural effusion, worsening lower extremity edema, weight gain, and elevated BNP. - Patient reports she was recently started back again on Lasix 20 mg a day by her PCP on the day prior to admission for worsening lower extremity edema - Now at net -7L; weight down to 82 kg from 88 kg on admission. - Lasix 40mg IV today; will evaluate for a second dose, though do not want to cause KANU (2) Dyspnea: Patient presented with progressive dyspnea since surgery/lobectomy, acutely worsening over the last 2 days prior to admission. She has multiple reasons for dyspnea to include post-operative pulmonary changes, persistent pleural effusion, COPD, acute on chronic diastolic CHF, and deconditioning. - Consulted Dr. Roper - no thoracentesis needed - Heart failure plan as above (3) Acute respiratory failure with hypoxia: Secondary to acute CHF as above along with persistent pleural effusion and pulmonary postoperative changes as above - Continue supplemental O2 and titrate off as tolerated to keep pulse ox greater than 90% (4) Pleural effusion: As above. Stable from prior CXR. - Seen by thoracic surgery here and does not think she needs thoracentesis at this time. (5) Anemia: Hemoglobin with slight decrease this admission but stable at 7.6 - this is not too far off from her recent baseline. Normochromic/normocytic, stable from prior. No active bleeding. - Iron studies showed anemia of chronic disease when performed 2 weeks ago. - Folate was normal then - B12 was low (168) -> she was started on a B12 supplement during previous admission - Continue cyanocobalamin 1000 mcg PO daily (6) COPD (chronic obstructive pulmonary disease): No acute exacerbation. - Albuterol standing and PRN - Supplemental O2 as above, goal saturation 88-92% (7) Hypertension: Chronic. Was fairly poorly controlled upon admission and now much improved with increased dose of Coreg. - Continue Coreg at increased dose 25 mg p.o. twice daily - Continue current hydralazine, Lasix as above - Hydralazine 5mg IV q 6 hours PRN SBP > 180 mmHg - Continue to monitor (8) Paroxysmal atrial fibrillation: Remains in NSR, anticoagulated on Coumadin with INR = 2.8 on 05/07. Her atrial fibrillation last admission was thought to be secondary to her thoracic surgery in the postoperative period. - Patient and her daughter felt that the amiodarone is causing her problems, and it was discontinued. - Appreciate cardiology consultation - Continue increased dose of carvedilol 25 mg p.o. twice daily - Continue warfarin (9) Squamous cell lung cancer: Surgical cure s/p wedge resection in 03/2019. - Continue to monitor (10) Hyperlipidemia: Chronic. Stable. - Continue Simvastatin (11) CKD (chronic kidney disease), stage III: Chronic. Stable, creatinine baseline is around 1.5. - Monitor Cr (12) Coronary artery disease: With a history of severe single-vessel disease of the RCA that is being medically managed. Patient presently with no chest pain. - Continue beta-jose a, simvastatin, warfarin (13) History of pulmonary embolism: With history of recurrent PEs, on long-term warfarin. - Continue Coumadin (14) DVT prophylaxis: Warfarin Subjective Feeling better. Less swelling. Review of Systems Review of Systems: All systems reviewed & are unremarkable except as noted in HPI & below Physical Exam Constitutional: WD/WN, vitals as above no acute distress Eyes: PERRL, conjunctivae normal, anicteric sclerae Neck: trachea midline, no thyromegaly Respiratory: normal respiratory effort; no labored breathing Auscultation: + diminished lung sounds (At the right base and middle lung field); no wheezes Cardiovascular: Rate/Rhythm: regular rate and regular rhythm Heart Sounds: + murmur (2 out of 6 left lower sternal border) Extremities: + edema (1+ pitting edema of lower extremities to the knees bilaterally) Gastrointestinal (Abdomen): normal bowel sounds, soft, nontender, no hepatosplenomegaly Musculoskeletal: Extremities: no cyanosis and no clubbing Skin: no rashes, warm and dry Neurologic: moves all extremities and awake; no focal motor deficits Psychiatric: A+Ox3, euthymic affect Results & Data Vital Signs (Past 12 Hours) Vital Signs Temp Pulse Pulse Resp BP BP Pulse Ox 05/07/19 12:02 36.6 C 68 18 120/51 L 97 05/07/19 07:39 67 05/07/19 07:05 36.8 C 68 17 138/51 L 97 05/07/19 04:00 36.9 C 68 18 137/61 97 PG Care Time/CCT Total # of Minutes Spent Total Time Spent with Patient: Total time spent is greater than 50% in coordination of care (as documented) at patient's floor/unit and/or counseling patient: (1) Coronary artery disease Associated angina: without angina Coronary Disease-Associated Artery/Lesion type: [place] artery [place] vs. transplanted heart: [place] heart Qualified Code(s): I25.10 - Atherosclerotic heart disease of [place] coronary artery without angina pectoris (2) Anemia Anemia type: unspecified type Qualified Code(s): D64.9 - Anemia, unspecified (3) Dyspnea Dyspnea type: acute respiratory distress Qualified Code(s): R06.03 - Acute respiratory distress (4) Hyperlipidemia Hyperlipidemia type: unspecified Qualified Code(s): E78.5 - Hyperlipidemia, unspecified (5) COPD (chronic obstructive pulmonary disease) COPD type: unspecified COPD Qualified Code(s): J44.9 - Chronic obstructive pulmonary disease, unspecified (6) Squamous cell lung cancer Laterality: right Qualified Code(s): C34.91 - Malignant neoplasm of unspecified part of right bronchus or lung (7) Hypertension Hypertension type: essential hypertension Qualified Code(s): I10 - Essential (primary) hypertension
--- NOTE | 2019-05-07 14:52 | Heart Failure Progress Note ---
Date of Service May 07, 2019 Assessment & Plan (1) Acute on chronic diastolic (congestive) heart failure: She continues to diuresis and renal function is still consistent with her baseline. She feels she's still holding on to a significant amount of fluid in her legs compared to her baseline. Would consider additional Lasix this afternoon or another dose of IV in the am as long as her labs remain stable. Continue daily standing weights, strict I&O's, low sodium diet, fluid restriction. Continue current Coreg 25 mg BID. Continue anticoagulation with Coumadin. Continue hydralazine, continue statin Patient will likely do well as an outpatient once she is back on her typical diuretic regimen. She is interested in following with the heart failure program, likely short term. Will arrange for close follow up within 7 days. She is anticipating returning home with home health. Subjective Mrs. Lnik is a very pleasant 78-year-old female with a history of Takotsubo cardiomyopathy with resolved LV dysfunction, medically managed severe single- vessel CAD involving her RCA, mild to moderate mitral regurgitation, peripheral vascular disease status post AAA repair, chronic kidney disease, COPD, hypertension, recurrent pulmonary embolism on chronic anticoagulation, right lower lobectomy which revealed stage Ia squamous cell cancer (03/2019), paroxysmal atrial fibrillation, and chronic diastolic heart failure. She has been referred to the heart failure program by Dr. Ricci Dyer. Dr. Zuniga is her primary wallpaper printer helper. After her recent hospitalization she was transferred to [facility] for rehab for 2 weeks. Apparently her diuretics were discontinued during that time. She developed progressive dyspnea, orthopnea, and weight gain. She presented to the ED with elevated BNP and evidence of volume overload on exam. She was placed on BiPap and give Lasix 40 mg IV with good effect. She has continued IV Lasix and is - 7.5 L so far this admission. She reports her symptoms are improving. She is ambulating without dyspnea. She denies orthopnea or PND. She continues to have edema in her legs which is not her normal according to the patient. She is down 5 kg since admission. She does typically weight herself at home on a daily basis and reports her dry weight to be 170 lb. If her weights here are accurate, she still has about 10 lbs to go. She wears 2 L of supplemental oxygen at home as needed. She typically follows a low sodium diet. She lives alone in [facility] and her daughter Elise typically helps out at home, including managing her medications. Results & Data Vital Signs (Past 12 Hours) Vital Signs Temp Pulse Pulse Resp BP BP Pulse Ox 05/07/19 12:02 36.6 C 68 18 120/51 L 97 05/07/19 07:39 67 05/07/19 07:05 36.8 C 68 17 138/51 L 97 05/07/19 04:00 36.9 C 68 18 137/61 97
[2019-05-07] MEDS: WARFARIN SOD 2 MG TAB PO SCH (16:11)
[2019-05-07] MEDS: SIMVASTATIN 40 MG TAB PO SCH (20:39)
[2019-05-08] MEDS: IPRATROPIUM BROMIDE/ALBUTEROL respimat INH INH SCH ×4 (06:18→23:52)
[2019-05-08 06:52] LABS: Hematocrit (blood only) 23.8 % (37-47); Hemoglobin 7.7 g/dL (12.0-16.0); Mean Corpuscular Hgb Conc 32.4 g/dL (32-36); Mean Corpuscular Volume 90.5 fL (80-100); Mean Platelet Volume 8.5 fL (7.4-10.4); Platelet Count 260 K/uL (130-400); RDW Coefficient of Variation 15.9 % (11.5-14.5); RDW Standard Deviation 52.1 fL (36.4-46.3); Red Blood Count 2.63 M/uL (4.2-5.4); White Blood Count 4.55 K/uL (4.8-10.8)
[2019-05-08 07:21] LABS: Calcium 8.7 mg/dl (8.5-10.1); Est GFR (African American) 33.4; Est GFR (Non-African American) 28.8; Magnesium 2.2 mg/dl (1.8-2.4); Potassium 4.1 mmol/L (3.5-5.1)
[2019-05-08] MEDS ORDERED: FUROSEMIDE 40 MG/4 ML VIAL IV STA (07:36)
[2019-05-08] MEDS: CYANOCOBALAMIN 500 MCG TABLET (VITAMIN B-12) PO SCH (07:44)
[2019-05-08] MEDS: CARVEDILOL 25 MG TAB PO SCH ×2 (07:44→16:53)
[2019-05-08] MEDS: HydrALAZINE TAB 50 MG TAB PO SCH ×2 (07:44→16:52)
[2019-05-08] MEDS: DOCUSATE SODIUM 100 MG CAP PO SCH ×2 (07:44→20:00)
[2019-05-08] MEDS ORDERED: FUROSEMIDE 40 MG in SYRINGE 0 ML IV ONE (07:45)
--- NOTE | 2019-05-08 10:48 | Cardiology Progress Note ---
Date of Service May 08, 2019 Assessment & Plan (1) Acute on chronic diastolic (congestive) heart failure: 2. Paroxysmal atrial fibrillation 3. Squamous cell cancer stage Ia post right lower lobectomy 03/2019 4. History of VTE 5. Anemia 6. COPD 7. Hypertension Patient continues to improve from heart failure standpoint. Negative 2L yesterday and net greater than 8L so far this admission. Only minimal congestion on exam today. Renal function and electrolytes remain stable. She was given a dose of IV Lasix 40 mg this am. Reassess volume status this afternoon. Consider transitioning to oral Lasix. Daily weights. Low sodium diet. Heart failure followup after discharge. Remains in sinus rhythm off amiodarone. Continue anticoagulation with warfarin. Supervising Physician Co-Signing Physician Notes Patient seen and examined. Agree with assessment and plan as outlined by REILLY Medrano. Additional IV diuresis today. Likely transition to PO diuretics tomorrow. Close cardiac follow-up on discharge. Subjective Feeling better overall today but not back to baseline. Walked one lap in halls last night and experienced shortness of breath once back to room. No shortness of breath at rest, orthopnea or PND. No chest pain. Telemetry reviewed-- no events Review of Systems Review of Systems: All systems reviewed & are unremarkable except as noted in HPI & below Physical Exam Physical Exam: General: No acute distress, comfortable. HEENT: Head is normal. Sclerae anicteric. Mucous membranes moist. Neck: No appreciable JVD. Lungs: Clear to auscultation bilaterally without rales, rhonchi or wheezes. Cardiac: Regular rate and rhythm. S1-S2 normal. No appreciable murmur, gallop or rub. Abdomen: Soft and nontender. Bowel sounds normal. No mass or organomegaly. No abdominal bruit. Extremities/vascular: Well perfused. 1+ edema to distal bill bilaterally Neurologic: Nonfocal Psychiatric: Affect appropriate. Alert and oriented. Results & Data Vital Signs (Past 12 Hours) Vital Signs Temp Pulse Pulse Resp BP BP Pulse Ox 05/08/19 08:10 70 05/08/19 07:06 36.6 C 65 18 127/61 97 05/08/19 03:11 36.8 C 79 17 140/62 97 05/08/19 00:00 36.9 C 86 17 125/63 97 05/07/19 23:09 69 Laboratory Results Laboratory Results - last 24 hr 05/08/19 05/08/19 06:29 06:29 WBC 4.55 L RBC 2.63 L Hgb 7.7 L Hct 23.8 L MCV 90.5 MCH 29.3 MCHC 32.4 RDW Std Deviation 52.1 H RDW Coeff of Mio 15.9 H Plt Count 260 MPV 8.5 Sodium 138 Potassium 4.1 Chloride 101 Carbon Dioxide 33 H Anion Gap 4.0 BUN 43 H Creatinine 1.66 H Est Cr Clr Drug Dosing 28.0 Est GFR ( Amer) 33.4 Est GFR (Non-Af Amer) 28.8 BUN/Creatinine Ratio 26.0 H Glucose 85 Calcium 8.7 Magnesium 2.2
--- NOTE | 2019-05-08 12:32 | Hospitalist Progress Note ---
Date of Service May 08, 2019 Assessment & Plan (1) Acute on chronic diastolic (congestive) heart failure: Patient with known chronic diastolic CHF, mild to moderate mitral regurgitation, and here with progressive dyspnea, pleural effusion, worsening lower extremity edema, weight gain, and elevated BNP. - Patient reports she was recently started back again on Lasix 20 mg a day by her PCP on the day prior to admission for worsening lower extremity edema - Now at net -8.5L; weight down to 82 kg from 88 kg on admission. - Lasix 40mg IV today; will switch to oral tomorrow (2) Dyspnea: Patient presented with progressive dyspnea since surgery/lobectomy, acutely worsening over the last 2 days prior to admission. She has multiple reasons for dyspnea to include post-operative pulmonary changes, persistent pleural effusion, COPD, acute on chronic diastolic CHF, and deconditioning. - Consulted Dr. Roper - no thoracentesis needed - Heart failure plan as above (3) Pleural effusion: As above. Stable from prior CXR. - Seen by thoracic surgery here and does not think she needs thoracentesis at this time. (4) Anemia: Hemoglobin with slight decrease this admission but stable at 7.6 - this is not too far off from her recent baseline. Normochromic/normocytic, stable from prior. No active bleeding. - Iron studies showed anemia of chronic disease when performed 2 weeks ago. - Folate was normal then - B12 was low (168) -> she was started on a B12 supplement during previous admission - Continue cyanocobalamin 1000 mcg PO daily - Hgb was 7.7 on 05/08 (5) COPD (chronic obstructive pulmonary disease): No acute exacerbation. - Albuterol standing and PRN - Supplemental O2 as above, goal saturation 88-92% (6) Hypertension: Chronic. Was fairly poorly controlled upon admission and now much improved with increased dose of Coreg. - Continue Coreg at increased dose 25 mg p.o. twice daily - Continue current hydralazine, Lasix as above - Hydralazine 5mg IV q 6 hours PRN SBP > 180 mmHg - Continue to monitor (7) Paroxysmal atrial fibrillation: Remains in NSR, anticoagulated on Coumadin with INR = 2.8 on 05/07. Her atrial fibrillation last admission was thought to be secondary to her thoracic surgery in the postoperative period. - Patient and her daughter felt that the amiodarone is causing her problems, and it was discontinued. - Appreciate cardiology consultation - Continue increased dose of carvedilol 25 mg p.o. twice daily - Continue warfarin (8) Squamous cell lung cancer: Surgical cure s/p wedge resection in 03/2019. - Continue to monitor (9) Hyperlipidemia: Chronic. Stable. - Continue simvastatin (10) CKD (chronic kidney disease), stage III: Chronic. Stable, creatinine baseline is around 1.5. - Monitor Cr - As of 05/08, Cr was 1.66, and had been stable for several days. (11) Coronary artery disease: With a history of severe single-vessel disease of the RCA that is being medically managed. Patient presently with no chest pain. - Continue beta-jose a, simvastatin, warfarin (12) History of pulmonary embolism: With history of recurrent PEs, on long-term warfarin. - Continue Coumadin (13) DVT prophylaxis: Warfarin Subjective Doing better. Still some lower extremity edema. Review of Systems Review of Systems: All systems reviewed & are unremarkable except as noted in HPI & below Physical Exam Constitutional: WD/WN, vitals as above no acute distress Eyes: PERRL, conjunctivae normal, anicteric sclerae Neck: trachea midline, no thyromegaly Respiratory: normal respiratory effort; no labored breathing Auscultation: + diminished lung sounds (At the right base and middle lung field); no wheezes Cardiovascular: Rate/Rhythm: regular rate and regular rhythm Heart Sounds: + murmur (2 out of 6 left lower sternal border) Extremities: + edema (Trace pitting edema of lower extremities to the knees bilaterally) Gastrointestinal (Abdomen): normal bowel sounds, soft, nontender, no hepatosplenomegaly Musculoskeletal: Extremities: no cyanosis and no clubbing Skin: no rashes, warm and dry Neurologic: moves all extremities and awake; no focal motor deficits Psychiatric: A+Ox3, euthymic affect Results & Data Vital Signs (Past 12 Hours) Vital Signs Temp Pulse Pulse Resp BP BP Pulse Ox 05/08/19 11:00 36.6 C 67 18 141/53 H 99 05/08/19 08:10 70 05/08/19 07:06 36.6 C 65 18 127/61 97 05/08/19 03:11 36.8 C 79 17 140/62 97 PG Care Time/CCT Total # of Minutes Spent Total Time Spent with Patient: Total time spent is greater than 50% in coordination of care (as documented) at patient's floor/unit and/or counseling patient: (1) Dyspnea Dyspnea type: acute respiratory distress Qualified Code(s): R06.03 - Acute respiratory distress (2) Anemia Anemia type: unspecified type Qualified Code(s): D64.9 - Anemia, unspecified (3) COPD (chronic obstructive pulmonary disease) COPD type: unspecified COPD Qualified Code(s): J44.9 - Chronic obstructive pulmonary disease, unspecified (4) Hypertension Hypertension type: essential hypertension Qualified Code(s): I10 - Essential (primary) hypertension (5) Squamous cell lung cancer Laterality: right Qualified Code(s): C34.91 - Malignant neoplasm of unspecified part of right bronchus or lung (6) Hyperlipidemia Hyperlipidemia type: unspecified Qualified Code(s): E78.5 - Hyperlipidemia, unspecified (7) Coronary artery disease Coronary Disease-Associated Artery/Lesion type: [place] artery [place] vs. transplanted heart: [place] heart Associated angina: without angina Qualified Code(s): I25.10 - Atherosclerotic heart disease of [place] coronary artery without angina pectoris
[2019-05-08] MEDS ORDERED: POLYETHYLENE (MIRALAX) 17 GM PACK PO PRN (16:10)
[2019-05-08] MEDS: WARFARIN SOD 1 MG TAB PO SCH (16:52)
[2019-05-08] MEDS: SIMVASTATIN 40 MG TAB PO SCH (20:00)
[2019-05-09] MEDS: IPRATROPIUM BROMIDE/ALBUTEROL respimat INH INH SCH ×2 (06:10→12:02)
[2019-05-09] MEDS ORDERED: FUROSEMIDE 40 MG TAB PO ONE (07:39)
[2019-05-09] MEDS: CYANOCOBALAMIN 500 MCG TABLET (VITAMIN B-12) PO SCH (08:00)
[2019-05-09] MEDS: DOCUSATE SODIUM 100 MG CAP PO SCH (08:00)
[2019-05-09] MEDS: HydrALAZINE TAB 50 MG TAB PO SCH (08:01)
[2019-05-09] MEDS: CARVEDILOL 25 MG TAB PO SCH (08:01)
[2019-05-09 09:02] LABS: Prothrombin Time 28.1 Seconds (9.0-12.0)
--- NOTE | 2019-05-09 13:37 | Discharge Summary ---
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 Roper on 04/03/19. The surgery went well with no complications identified. Patient's post operative course complicated by confusion thought to be secondary to opioid use, atrial fibrillation for which she was started on Amiodarone, right sided pleural effusion s/p thoracentesis on 04/15/19 in which 50mL of serous fluid was removed. Fluid remained negative for bacterial growth. She was discharged to [facility] rehab on 04/17/19 in stable condition. She participated in rehab but reports progressive shortness of breath and decreased exercise tolerance. She was discharged from rehab to home on 04/30/19. Since then she reports worsening shortness of breath at rest and with exertion. She has a stable cough productive for clear/yellow sputum. She reports worsening wheezing as well as orthopnea, edema and an unintentional weight gain of 20# since surgery (85.7kg today, per records she was 81.8 kg on 04/03/19. Weight peaked at 89.1kg on 04/17 on discharge). She reports some relief in SOB with Breo inhaler. On arrival to the ER she was found to be afebrile, hypertensive at 210/84, RR of 28 with increased work of breathing, 89% on room air. She was placed on BiPAP with improved respiratory status. She was previously on Lasix which was discontinued due to "kidney troubles". She was restarted on Lasix by her PCP yesterday. Patient denies fevers/chills/sweats/malaise. She denies chest pain/palpitations/dizziness. Denies abdominal pain/nausea/vomiting/diarrhea or constipation. No additional complaints at this time. ER Course: Albuterol, Lasix 40mg IV, Ativan 0.5mg Principal Diagnosis CHF exacerbation Discharge Exam Constitutional WD/WN, vitals as above no acute distress Eyes PERRL, conjunctivae normal, anicteric sclerae Neck trachea midline, no thyromegaly Respiratory normal respiratory effort; no labored breathing Auscultation: + diminished lung sounds (At the right base and middle lung field); no wheezes Cardiovascular Rate/Rhythm: regular rate and regular rhythm Heart Sounds: + murmur (2 out of 6 left lower sternal border) Extremities: + edema (Trace pitting edema of lower extremities to the knees bilaterally) Gastrointestinal (Abdomen) normal bowel sounds, soft, nontender, no hepatosplenomegaly Musculoskeletal Extremities: no cyanosis and no clubbing Skin no rashes, warm and dry Neurologic moves all extremities and awake; no focal motor deficits Psychiatric A+Ox3, euthymic affect Discharge Data Allergies Allergy/AdvReac Type Severity Reaction Status Date / Time chlorhexidine Allergy Mild HIVES,RED Verified 05/02/19 18:10 RASH Consultations 05/02/19 20:20 ED Decision to Admit Stat 05/02/19 22:06 Consult Case Management - Discharge Planning Routine Consult Thoracic Surgery Routine 05/03/19 17:32 Consult Cardiology Routine Hospital Course (1) Acute on chronic diastolic (congestive) heart failure: Patient with known chronic diastolic CHF, mild to moderate mitral regurgitation, and here with progressive dyspnea, pleural effusion, worsening lower extremity edema, weight gain, and elevated BNP. Lasix had been stopped at rehab for an unknown reason, and she developed edema at [facility]. - Diuresed with IV Lasix; now at net -8.5L; weight down to 82 kg from 88 kg on admission. - Lasix 40mg PO daily on discharge. Will follow up with CHF clinic. (2) Dyspnea: Patient presented with progressive dyspnea since surgery/lobectomy, acutely worsening over the last 2 days prior to admission. She has multiple reasons for dyspnea to include post-operative pulmonary changes, persistent pleural effusion, COPD, acute on chronic diastolic CHF, and deconditioning. - Consulted Dr. Roper - no thoracentesis needed - Heart failure plan as above (3) Pleural effusion: As above. Stable from prior CXR. - Seen by thoracic surgery here and does not think she needs thoracentesis at this time. (4) Anemia: Hemoglobin with slight decrease this admission but stable at 7.6 - this is not too far off from her recent baseline. Normochromic/normocytic, stable from prior. No active bleeding. - Iron studies showed anemia of chronic disease when performed 2 weeks ago. - Folate was normal then - B12 was low (168) -> she was started on a B12 supplement during previous admission - Continue cyanocobalamin 1000 mcg PO daily - Hgb was 7.7 on 05/08 (5) COPD (chronic obstructive pulmonary disease): No acute exacerbation. - Albuterol standing and PRN - Supplemental O2 as above, goal saturation 88-92% (6) Hypertension: Chronic. Was fairly poorly controlled upon admission and now much improved with increased dose of Coreg. - Coreg increased to 25 mg p.o. twice daily on dishcarge (7) Paroxysmal atrial fibrillation: Remains in NSR, anticoagulated on Coumadin with INR = 2.8 on 05/07. Her atrial fibrillation last admission was thought to be secondary to her thoracic surgery in the postoperative period. - Patient and her daughter felt that the amiodarone is causing her problems, and it was discontinued. - Appreciate cardiology consultation - Continued increased dose of carvedilol 25 mg p.o. twice daily - Continued warfarin (8) Squamous cell lung cancer: Surgical cure s/p wedge resection in 03/2019. - Continue to monitor (9) Hyperlipidemia: Chronic. Stable. - Continue simvastatin (10) CKD (chronic kidney disease), stage III: Chronic. Stable, creatinine baseline is around 1.5. - Monitor Cr - As of 05/08, Cr was 1.66, and had been stable for several days. - Could recheck a BMP in 1-2 weeks. (11) Coronary artery disease: With a history of severe single-vessel disease of the RCA that is being medically managed. Patient presently with no chest pain. - Continue beta-jose a, simvastatin, warfarin (12) History of pulmonary embolism: With history of recurrent PEs, on long-term warfarin. - Continue Coumadin (13) DVT prophylaxis: Warfarin Total Time Total Time Spent Total Time Spent (In Minutes): 35 Total Time Includes: Examination of the Patient and Communication With Other Providers Discharge Plan Discharge Items Patient Disposition: Home - Home Health Services Reason For Visit: SOB Discharge Diagnosis: CHF exacerbation Discharge Goals: Decrease discomfort and Improve disease control Activity: Resume your previous activity Non-emergency contact: Primary Care Provider and Barbering Teacher Call non-emergency contact if: your symptoms worsen, your pain is not controlled and your temperature is above 100.5 Follow-up/Referrals: Ritu Pacheco MD [Primary Care Provider] - 05/16/19 11:45 am (Please, follow up with Dr. Maddox on May 16 at 11:45 am. *If you need to change this appointment, call the office at [phone].) Yudy Singer PA-C [Physician Wood Boatbuilder] - 05/17/19 10:30 am (Please, follow up at [facility] Cardiology Office / CHF Clinic with Tracey Singer PA-C on MondayMay 17 at 10:30 am. *The office is located in [address] of [facility]. This is the big building next to this [facility]. If you need to change this appointment, call the office at [phone].) Diet: Heart Healthy Addtl Provider Instructions: Please take Lasix 40mg PO every day. Weigh yourself every day. You should gradua lly go from 180 lbs (what you weigh today) down to 175 lbs. When you reach 175 lbs (your dry weight from before), please call your PCP or Ms. Singer (CHF physician operations assistant) to help adjust your Lasix dose. You will probably drop back down to your 20mg dose, but I would like you to discuss this with a doctor before changing the dose. Second, please stop your amiodarone. This may have been worsening your breathing a little. Finally, please take your Coreg (carvedilol) at 25mg 2 times per day instead of 12.5 mg. This will help keep your blood pressure slightly lower. Prescriptions: Continued ergocalciferol (vitamin D2) 50,000 unit capsule 50,000 unit PO MONTHLY Qty: 3 RF: 0 tiotropium bromide 2.5 mcg/actuation mist 2 puffs inhalation BID Qty: 2 RF: 0 hydralazine 50 mg tablet 12.5 mg PO BIDM RF: 0 ferrous sulfate 325 mg (65 mg iron) Tablet 325 mg PO QAM RF: 0 Breo Ellipta 200-25 mcg/dose Blister With Device 1 inh INHALATION QAM RF: 0 warfarin 2 mg tablet See Patient Comments PO UD RF: 0 cyanocobalamin (vitamin B-12) [Vitamin B-12] 1,000 mcg Tablet 1,000 mcg PO QAM RF: 0 acetaminophen [Mapap (acetaminophen)] 325 mg tablet 650 mg PO Q4H MDD 3250 MG APAP/DAILY PRN (Reason: Fever Or Pain) RF: 0 docusate sodium 100 mg Capsule 100 mg PO BID RF: 0 guaifenesin 600 mg Tablet Extended Release 12hr 600 mg PO BID PRN (Reason: Mucous/Cough) RF: 0 simvastatin 40 mg Tablet 40 mg PO HS RF: 0 albuterol sulfate [Ventolin HFA] 90 mcg/actuation Hfa Aerosol Inhaler 2 puff INHALATION Q4H PRN (Reason: Shortness Of Breath Or Wheezing) RF: 0 Changed carvedilol 12.5 mg tablet 25 mg PO BIDM Qty: 60 RF: 0 furosemide [Lasix] 20 mg tablet 40 mg PO QAM Qty: 30 RF: 0 Discontinued amiodarone 200 mg tablet 200 mg PO BIDM RF: 0 Stand-Alone Forms: [facility] Discharge Orders: Discharge Order (Routine); Ordered 05/09/19 Ordered By: Ricci Dyer Admission Data Admit Date/Time: 05/02/19 21:08 Attending Provider: Ricci Dyer Admit Provider: Swathi Pierson Primary Care Provider: Ritu Pacheco V. Other Providers: Russ Roper ; Vj Zuniga ; Ricci Dyer Service: Telemetry
[2019-05-09] MEDS ORDERED: WARFARIN SOD 1 MG TAB PO ONE (16:00)
--- NOTE | 2019-05-09 19:22 | Progress Note ---
DATE: 05/09/2019 Ms. Link was seen today on 05/09/2019 and quite frankly she looks better than I have seen her since her surgery several weeks ago. She does have some mildly decreased breath sounds on the right, but she is moving air well. She feels well. She still has edema of her lower extremities, but it is definitely improved. She is being discharged today by Dr. Ricci Dyer. I will see her back in the office in 1 week with a chest x-ray.
== END 2019-05-09 14:24 | disposition home health service (06) | DRG 291 ==
LOC: ED 17:35 → 2E 21:08 → SUATTDRO 21:08 → 2E 21:56

== ENCOUNTER 2020-07-17 11:22 | Observation (INO) ==
[2020-07-17] MEDS ORDERED: ONDANSETRON INJ 2 MG/ML 2 ML VIAL IV STA ×2 (11:52→12:02)
[2020-07-17] MEDS ORDERED: HYDROmorphone INJ 0.5 MG/0.5 ML SYR IV STA ×2 (11:57→15:12)
--- NOTE | 2020-07-17 12:10 | Emergency Department Note ---
Impression & Plan Acute upper abdominal pain, Anticoagulant long-term use ED Provider Note INFORMANT: Patient ED PROVIDER(S): Tomas Valladares MD CHIEF COMPLAINT: Abdominal pain PLAN: Disposition: Admitted Condition: Good MEDICAL DECISION MAKING: Patient presented in the department complaining of upper abdominal pain. Her ECG did not show any acute changes. Normal sinus rhythm. Nonspecific ST. Her CBC was unremarkable. Mild leukopenia but no significant difference than prior. No anemia. The patient had an unremarkable chemistry panel except for a mild elevation of her creatinine which was baseline. Her troponin was negative. LFTs and lipase were negative. Urinalysis did show some bacteria however patient has no lower abdominal pain or urinary symptoms. She was treated with IV Dilaudid. She did require a second dose. The patient underwent CT imaging of the abdomen pelvis and no acute findings were noted. Given the upper abdominal discomfort which seem to be more right-sided she underwent ultrasound imaging of the gallbladder. There was no evidence of emergent pathology noted by gallbladder imaging. The patient was reassessed and was still having moderate pain on examination. Given the findings a lactate was ordered. Mesenteric Dopplers were ordered. I believe the patient needs further juan carlos gement in the hospital. Consultation was made with internal medicine, [facility] service. Patient was evaluated in the ER for further management. Triage Nursing notes reviewed and agree them. Additional history obtained from family. Prior medical records reviewed prior CBC did reveal leukopenia. Vital Signs: reviewed and remarkable for mild hypertension Differential diagnosis: PUD, pancreatitis, biliary pathology, Appendicitis, infections, diverticulitis, UTI, obstruction, mesenteric ischemia, aortic pathology, inflammatory bowel disease, renal colic, hernia, volvulus, constipation, as well as other pathologies. Diagnostics interpreted by me: ECG: Twelve-lead ECG reveals a normal sinus rhythm at 74 bpm. No evidence of ST elevation or depression. Nonspecific ST. Normal QRS and axis. No PVCs. Cardiac Monitoring: Cardiac monitoring ordered by me: The patient was placed on continuous cardiac monitoring and observed. It revealed a normal sinus rhythm at 63 beats per minute without ectopy or evidence of dysrhythmia. Imaging studies: CT scan of the abdomen and pelvis and gallbladder ultrasound imaging did not reveal any evidence of acute pathology. Chronic findings noted. I refer you to the EMR for further details. Consultation(s): [facility], Dr. Santana HPI: The patient is a 78 year old female who presents to the Emergency Room with complaints of upper abdominal pain. This started yesterday and is worsened. The patient also notes the following associated symptoms, none. The patient has no relieving factors. Current pain is rated as 8/10. History of AAA repair pt denies LOC, headache, fevers, chills, diaphoresis, visual changes, neck pain, chest pain, breathing difficulties, nausea, vomiting, back pain, melena, hematochezia, urinary symptoms, numbness, weakness, lymphadenopathy, rash, or other complaints. ROS: See above HPI for pertinent positives & negatives. A total of 10 systems reviewed and were otherwise negative. PAST MEDICAL HISTORY:See Below, peripheral vascular disease, hypertension, anticoagulation PAST SURGICAL HISTORY:See Below, AAA repair FAMILY HISTORY:See Below SOCIAL HISTORY:See Below, lives alone HOME MEDICATIONS:See Below ALLERGIES:See Below VITALS:See Below PHYSICAL EXAMINATION: GENERAL: Awake, alert, uncomfortable-appearing, in no distress HENT: Normocephalic, atraumatic. Oropharynx unremarkable. EYES: Normal conjunctiva. Sclera non-icteric. NECK: Inspection normal. Non-tender. Supple. No nuchal rigidity. FROM. No masses. RESPIRATORY: Clear to auscultation. No wheezes. No rales. Normal respiratory effort. CARDIAC: Normal rate. Normal rhythm. No murmurs. No rubs. Extremities warm and well perfused. Pulses equal. No JVD. GI: Soft, non-distended. epigastric and right upper quadrant tenderness to palpation. No rebound or guarding. No masses. RECTAL: Deferred. MUSCULOSKELETAL: Atraumatic. Chest examination reveals no tenderness. The back is symmetrical on inspection without obvious abnormality. There is no CVA tenderness to palpation. No joint edema. LOWER EXTREMITIES: Calves are equal size bilaterally and non-tender. No edema. No discoloration. NEURO: Normal sensorium. No sensory or motor deficits noted. SKIN: No rash or jaundice noted. 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 Takotsubo syndrome 2016 Vitamin D deficiency Surgical History AAA (abdominal aortic aneurysm) S/P REPAIR 2016 History of bladder surgery TURBT History of bronchoscopy EBUS, Navigational bronch with biopsy: 02/21/19: Grade 2 view, MAC 3, ETT 8.5 History of lobectomy of lung History of tooth extraction 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) Family History Sister Skin cancer Mother Cancer Other Dyslipidemia Hypertension Malignant neoplasm of bone Denies family history of Colon cancer Ovarian cancer Prostate cancer Kidney disease Myocardial infarction Breast cancer Social History Smoking Status: Former smoker Cigarettes Per Day: 30; Second Hand Exposure: No; Hx Alcohol Use: No Hx Substance Use: No Preferred Language: Setswana Communication Ability: Effective Visual Impairment: No Limitations Hearing Ability: Normal Deckhand Sponge Boat Required: No Beliefs That Will Affect Care: None marital status: / Current Living Situation: Alone current occupational status: retired Feels Safe at Home: Yes Childhood Exposure to Second-Hand Smoke: Yes Dental Care, Regularly: No Physical Activity Frequency: Does not Exercise Seatbelt Use: always Sunscreen Use: No Allergies Allergies Allergy/AdvReac Type Severity Reaction Status Date / Time chlorhexidine Allergy Mild HIVES,RED Verified 07/17/20 14:31 RASH Home Meds Home Medications Medication Instructions Recorded Confirmed ferrous sulfate 325 mg PO QAM 12/23/18 07/17/20 cyanocobalamin (vitamin B-12) 1,000 mcg PO QAM 05/02/19 07/17/20 [Vitamin B-12] docusate sodium 100 mg capsule 100 mg PO DAILY PRN cap 06/05/19 07/17/20 albuterol sulfate 90 mcg/actuation 1 puffs INH Q6H PRN 07/31/19 07/17/20 aerosol inhaler nystatin 100,000 unit/gram topical 1 appln TOP BID PRN gm 06/11/20 07/17/20 cream tiotropium bromide [Spiriva 1 puffs INH BID 07/17/20 07/17/20 Respimat] warfarin 1 mg PO TH 07/17/20 07/17/20 warfarin 2 mg PO SUMOTUWEFRSA 07/17/20 07/17/20 Previous Rx's Medication Instructions Recorded Oxygen Home #1 ea 05/16/19 carvedilol 25 mg tablet 25 mg PO BID #180 tab 10/02/19 ergocalciferol (vitamin D2) 1,250 50,000 unit PO MONTHLY #3 cap 01/20/20 mcg (50,000 unit) capsule furosemide 20 mg tablet 20 mg PO QAM #60 tab 03/11/20 hydralazine 25 mg tablet 25 mg PO BID #180 tab 04/27/20 simvastatin 40 mg tablet 40 mg PO HS #90 tab 06/22/20 Results & Data (ED) Vital Signs Vital Signs - 24 hr 07/17/20 11:23 07/17/20 11:30 07/17/20 11:36 Temperature 36.8 C Temperature Source Oral Pulse Rate 91 H 79 Pulse Rate [Right Finger] Pulse Rate from SpO2 Sensor 79 Respiratory Rate 20 22 Respiratory Effort / Characteristics Non-Labored Spontaneous Respiratory Depth Normal Respiratory Pattern Regular Blood Pressure 127/71 107/74 Blood Pressure [Right Arm] Blood Pressure Mean 89 82 Blood Pressure Mean [Right Arm] Blood Pressure Position Sitting Pulse Oximetry 94 95 Oxygen Delivery Method Room Air Room Air Sepsis Recent Fever Within 48 Hours No Sepsis New/Unexplained Change in Mental Status N/A Sepsis Action Taken by Nursing No Action Required 07/17/20 12:03 07/17/20 12:30 07/17/20 13:30 Temperature Temperature Source Pulse Rate 75 68 69 Pulse Rate [Right Finger] Pulse Rate from SpO2 Sensor 75 68 68 Respiratory Rate 21 19 19 Respiratory Effort / Characteristics Respiratory Depth Respiratory Pattern Blood Pressure 147/74 H 160/81 H 141/79 H Blood Pressure [Right Arm] Blood Pressure Mean 105 111 106 Blood Pressure Mean [Right Arm] Blood Pressure Position Pulse Oximetry 95 95 92 Oxygen Delivery Method Sepsis Recent Fever Within 48 Hours Sepsis New/Unexplained Change in Mental Status Sepsis Action Taken by Nursing 07/17/20 15:03 Temperature Temperature Source Pulse Rate Pulse Rate [Right Finger] 63 Pulse Rate from SpO2 Sensor Respiratory Rate 17 Respiratory Effort / Characteristics Respiratory Depth Respiratory Pattern Blood Pressure Blood Pressure [Right Arm] 154/79 H Blood Pressure Mean Blood Pressure Mean [Right Arm] 104 Blood Pressure Position Pulse Oximetry 93 Oxygen Delivery Method Sepsis Recent Fever Within 48 Hours Sepsis New/Unexplained Change in Mental Status Sepsis Action Taken by Nursing Laboratory Data Result diagrams: 07/17/20 12:05 07/17/20 12:05 Lab Results 07/17/20 07/17/20 07/17/20 Range/Units 12:05 12:05 13:30 WBC 4.44 L (4.8-10.8) K/uL RBC 4.09 L (4.2-5.4) M/uL Hgb 12.6 (12.0-16.0) g/dL Hct 37.3 (37-47) % MCV 91.2 (80-100) fL MCH 30.8 (25-34) pg MCHC 33.8 (32-36) g/dL RDW Std Deviation 50.9 H (36.4-46.3) fL RDW Coeff of Mio 15.1 H (11.5-14.5) % Plt Count 178 (130-400) K/uL MPV 10.0 (7.4-10.4) fL Immature Gran % (Auto) 0.2 % Neut % (Auto) 71.2 % Lymph % (Auto) 18.7 % [place] % (Auto) 7.9 % Eos % (Auto) 1.8 % Baso % (Auto) 0.2 % Neut # (Auto) 3.16 (1.4-6.5) K/uL Lymph # (Auto) 0.83 L (1.2-3.4) K/uL [place] # (Auto) 0.35 (0.11-0.59) K/uL Eos # (Auto) 0.08 (0-0.5) K/uL Baso # (Auto) 0.01 (0-0.2) K/uL Immature Gran # (Auto) 0.01 (0.00-0.02) K/uL Sodium 141 (136-145) mmol/L Potassium 3.5 (3.5-5.1) mmol/L Chloride 107 (98-107) mmol/L Carbon Dioxide 25 (21-32) mmol/L Anion Gap 9.0 (3-11) BUN 28 H (7-18) mg/dl Creatinine 1.71 H (0.6-1.2) mg/dl Est Cr Clr Drug Dosing 25.7 ml/min Est GFR ( Amer) 32.0 Est GFR (Non-Af Amer) 27.6 BUN/Creatinine Ratio 16.2 (10-20) Glucose 105 H (70-99) mg/dl Calcium 8.7 (8.5-10.1) mg/dl Total Bilirubin 0.7 (0.2-1) mg/dl AST 21 (15-37) U/L ALT 19 (12-78) U/L Alkaline Phosphatase 80 (45-117) U/L Troponin I < 0.015 (0-0.045) ng/ml Total Protein 6.7 (6.4-8.2) gm/dl Albumin 3.3 L (3.4-5.0) gm/dl Globulin 3.4 (2.5-4.0) gm/dl Albumin/Globulin Ratio 1.0 (0.9-2) Lipase 76 (73-393) U/L Urine Color Yellow Urine Appearance Clear (Clear) Urine pH 5.0 (4.5-7.5) Ur Specific [place] 1.010 (1.000-1.030) Urine Protein Negative (Negative) Urine Glucose (UA) Negative (Negative) Urine Ketones Negative (Negative) Urine Blood Negative (Negative) Urine Nitrite Negative (Negative) Urine Bilirubin Negative (Negative) Urine Urobilinogen Negative (Negative) Ur Leukocyte Esterase 1+ H (Negative) Urine WBC (Auto) 10-30 H (0-5) /hpf Urine RBC (Auto) 5-10 H (0-4) /hpf U Hyaline Cast (Auto) 1-5 (0-5) /lpf U Epithel Cells (Auto) 10-20 H (0-5) /lpf Urine Bacteria (Auto) 4+ H (Negative) Administered Medications Discontinued Medications Hydromorphone HCl (Hydromorphone Inj 0.5 Mg/0.5 Ml Syr) 0.25 mg IV NOW STA Stop: 07/17/20 11:58 Last Admin: 07/17/20 12:28 Dose: 0.25 mg Documented by: [id number] Hydromorphone HCl (Hydromorphone Inj 0.5 Mg/0.5 Ml Syr) 0.25 mg IV NOW STA Stop: 07/17/20 15:13 Last Admin: 07/17/20 15:23 Dose: 0.25 mg Documented by: [id number] Ondansetron HCl (Ondansetron Inj 2 Mg/Ml 2 Ml Vial) 4 mg IV NOW STA Stop: 07/17/20 11:53 Last Admin: 07/17/20 12:28 Dose: 4 mg Documented by: [id number] Ondansetron HCl (Ondansetron Inj 2 Mg/Ml 2 Ml Vial) 4 mg IV NOW STA Stop: 07/17/20 12:03 Last Admin: 07/17/20 12:29 Dose: Not Given Documented by: [id number] Discharge Plan Visit Data Chief Complaint: Abdominal Pain Stated Complaint: ABD PAIN,FEELS LIKE A BUBBLE IN UPPER ABD ED Provider: Tomas Valladares Discharge Problem: Acute upper abdominal pain, Anticoagulant long-term use Forms Stand Alone Forms: [facility] [place] [place] [employer] Prescriptions Prescriptions: No Action ergocalciferol (vitamin D2) 1,250 mcg (50,000 unit) capsule 50,000 unit PO MONTHLY Qty: 3 RF: 3 furosemide [Lasix] 20 mg tablet 20 mg PO QAM Qty: 60 RF: 5 hydralazine 25 mg tablet 25 mg PO BID Qty: 180 RF: 1 fluticasone furoate-vilanterol [Breo Ellipta] 100-25 mcg/dose blister with device 1 inh inhalation QAM RF: 0 simvastatin 40 mg tablet 40 mg PO HS Qty: 90 RF: 3 nystatin 100,000 unit/gram cream 1 appln TOP BID PRN (Reason: .) RF: 0 carvedilol 25 mg tablet 25 mg PO BID Qty: 180 RF: 3 (DME) Oxygen Home Liters Per Minute See Dose Instructions .ROUTE .MEDSUPPLY Qty: 1 RF: 0 albuterol sulfate [Ventolin HFA] 90 mcg/actuation HFA aerosol inhaler 1 puffs INH Q6H PRN (Reason: Shortness Of Breath) RF: 0 ferrous sulfate 325 mg (65 mg iron) Tablet 325 mg PO QAM RF: 0 cyanocobalamin (vitamin B-12) [Vitamin B-12] 1,000 mcg Tablet 1,000 mcg PO QAM RF: 0 docusate sodium 100 mg capsule 100 mg PO DAILY PRN (Reason: Constipation) RF: 0 warfarin 2 mg tablet 2 mg PO SUMOTUWEFRSA RF: 0 warfarin 1 mg tablet 1 mg PO TH RF: 0 Spiriva Respimat 2.5 mcg/actuation mist 1 puffs INH BID RF: 0 Referrals Referrals: Ritu Pacheco MD [Primary Care Provider] -
[2020-07-17 12:24] LABS: Mean Corpuscular Hgb Conc 33.8 g/dL (32-36); Platelet Count 178 K/uL (130-400)
[2020-07-17 12:44] LABS: Alanine Aminotransferase 19 U/L (12-78); Albumin Level 3.3 gm/dl (3.4-5.0); Aspartate Aminotransferase 21 U/L (15-37); BUN Creatinine Ratio 16.2 (10-20); Blood Urea Nitrogen 28 mg/dl (7-18); Calcium 8.7 mg/dl (8.5-10.1); Carbon Dioxide 25 mmol/L (21-32); Chloride 107 mmol/L (98-107); Creatinine Clr Calc Pharmacy 25.7 ml/min; Est GFR (Non-African American) 27.6; Glucose 105 mg/dl (70-99); Lipase 76 U/L (73-393); Potassium 3.5 mmol/L (3.5-5.1); Sodium 141 mmol/L (136-145)
[2020-07-17 12:48] LABS: Basophils # (auto) 0.01 K/uL (0-0.2); Basophils % (auto) 0.2 %; Eosinophils # (auto) 0.08 K/uL (0-0.5); Eosinophils % (auto) 1.8 %; Hematocrit (blood only) 37.3 % (37-47); Hemoglobin 12.6 g/dL (12.0-16.0); Immature Granulocytes # (auto) 0.01 K/uL (0.00-0.02); Immature Granulocytes % (auto) 0.2 %; Lymphocytes # (auto) 0.83 K/uL (1.2-3.4); Lymphocytes % (auto) 18.7 %; Mean Corpuscular Hemoglobin 30.8 pg (25-34); Mean Corpuscular Volume 91.2 fL (80-100); Monocytes # (auto) 0.35 K/uL (0.11-0.59); Monocytes % (auto) 7.9 %; Neutrophils # (auto) 3.16 K/uL (1.4-6.5); Neutrophils % (auto) 71.2 %; RDW Coefficient of Variation 15.1 % (11.5-14.5); RDW Standard Deviation 50.9 fL (36.4-46.3); Red Blood Count 4.09 M/uL (4.2-5.4); White Blood Count 4.44 K/uL (4.8-10.8)
[2020-07-17 12:49] LABS: Alkaline Phosphatase 80 U/L (45-117); Bilirubin,Total 0.7 mg/dl (0.2-1); Globulin 3.4 gm/dl (2.5-4.0); Total Protein 6.7 gm/dl (6.4-8.2); Troponin I < 0.015 ng/ml (0-0.045)
--- NOTE | 2020-07-17 13:14 | CT Scan Report ---
CT OF THE ABDOMEN AND PELVIS WITHOUT CONTRAST CLINICAL HISTORY: Upper abdominal pain. COMPARISON STUDY: PET/CT February 04, 2019. CT of the abdomen and pelvis June 16, 2016. TECHNIQUE: Axial images of the abdomen and pelvis were obtained without IV contrast. Images were revi ewed in the axial, sagittal, and coronal planes. Automated exposure control was utilized for the toan dy. A dose lowering technique was utilized adhering to the principles of ALARA. FINDINGS: Postoperative findings within the right lung are partially imaged on this examination. Post operative findings of the abdominal aorta are noted. Mild aneurysmal dilatation is unchanged since pr ior examination. Unenhanced images of the liver, spleen, adrenal glands and pancreas are unremarkable . There is no hydronephrosis. 2 mm calcification within the inferior left renal sinus could be vascul ar in etiology. This could also reflect a nonobstructing calculus. There are no ureteral calculi. The re is no hydronephrosis. Images of the pelvis are degraded by streak artifact from right hip arthropl asty. There is extensive sigmoid diverticulosis without evidence for acute diverticulitis. There is n o evidence for a bowel obstruction. No biliary or pancreatic ductal dilatation is present. Diverticul um of the second portion the duodenum are noted. There are several fat-containing ventral hernias. Th ere is no evidence for acute appendicitis. The appendix extends into a right groin hernia. Old L2 com pression fracture is noted. IMPRESSION: 1. No acute process within the abdomen or pelvis on unenhanced exam. 2. Colonic diverticulosis without evidence for acute diverticulitis. No bowel obstruction. 3. Multiple fat containing ventral hernias. 4. Stable postoperative findings of the abdominal aorta with mild aneurysmal dilatation of the distal descending thoracic aorta and abdominal aorta. ACT 112: Negative or not required by law. Electronically signed by: Gerardo Pires M.D. 07/17/2020 1:13 PM
[2020-07-17 13:58] LABS: Appearance Urine Clear (Clear); Bacteria Urine Automated 4+ (Negative); Bilirubin Urine Negative (Negative); Blood Urine Negative (Negative); Color Urine Yellow; Glucose Urine UA Negative (Negative); Ketones Urine Negative (Negative); Leukocyte Esterase Urine 1+ (Negative); Nitrite Urine Negative (Negative); Protein Urine Negative (Negative); Urobilinogen Urine Negative (Negative)
--- NOTE | 2020-07-17 14:13 | Electrocardiogram Report ---
Test Reason : Blood Pressure : / mmHG Vent. Rate : 074 BPM Atrial Rate : 074 BPM P-R Int : 182 ms QRS Dur : 080 ms QT Int : 398 ms P-R-T Axes : 044 007 047 degrees QTc Int : 441 ms Poor data quality, interpretation may be adversely affected Normal sinus rhythm Normal ECG When compared with ECG of 02-MAY-2019 17:44, Criteria for Anteroseptal infarct are no longer Present Confirmed by Abebe Dick ([id number]) on 07/17/2020 2:12:39 PM Referred By: Confirmed By:Abebe Dick
--- NOTE | 2020-07-17 15:01 | Ultrasound Report ---
Biliary ultrasound CLINICAL HISTORY: Upper abdominal pain COMPARISON STUDY: CT scan dated 07/17/2020 FINDINGS: The pancreas was not visualized. No focal hepatic masses were visualized. No gallstones are identified. There is no gallbladder wall thickening. There was no pericholecystic f luid. There is anterior gallbladder wall ringdown artifact suggesting adenomyomatosis. There is no ductal dilatation. The common bile duct measures 4 mm. There is no right-sided hydronephrosis. IMPRESSION: 1. Gallbladder adenomyomatosis 2. No calculi identified. No evidence of ductal dilatation. ACT 112: Negative or not required by law. Electronically signed by: Juan Newell M.D. 07/17/2020 3:00 PM
[2020-07-17 15:56] LABS: INR 4.8 (0.9-1.1); Prothrombin Time 46.6 Seconds (9.0-12.0)
--- NOTE | 2020-07-17 18:30 | History & Physical Report ---
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 1. Epigastric Abdominal Pain x 2 Days -Clinically, patient reports 1 to 2 days of sharp upper quadrant abdominal pain that seems to be constant and progressing and associated with a "feeling of a bubble", but not associated with any changes in appetite, nausea, vomiting, or diarrhea. No constitutional symptoms over this time frame. Interestingly, on physical exam she was found to have an intertrigo rash right below the right b reast that begins in the area where patient reports most pain (in the epigastric region), and out laterally to the mid axillary line. The pain does extend out through this area. -Studies as follows: -EKG displayed normal sinus rhythm without any acute abnormalities. Troponin's <0.015 at time of arrival. -Lipase within normal limit -CT of the abdomen and pelvis did not demonstrate any acute processes within the abdomen or pelvis on the unenhanced exam; multiple fat-containing ventral hernias, and stable postoperative findings of the abdominal aorta with mild dilatation of the distal descending thoracic aorta and abdominal aorta were noted. -Biliary ultrasound did demonstrate radiological findings consistent with gallbladder adenomyomatosis, but no calculi or evidence of ductal dilatation. -Mesenteric ultrasound showed no significant stenosis within the celiac or SMA, but JEFF was obstructed by bowel gas -Given history, physical exam, laboratories, and imaging findings, the primary etiology of this epigastric abdominal pain seems to be related to the rash discovered on physical exam, likely shingles. Given its dermatomal appearance and the lack of any constitutional or laboratory findings consistent with cellulitis, this is lower in the differential, but was considered. On physical exam, does not seem to be related to the ventral hernias found on imaging. Further, does not seem to be related to a biliary, hepatic, pancreatic, gastric, or vascular origin. -Plan as below 2. Erythematous rash consisting of plaques and papules, extending along the derm atomal area of T6 -- likely Zoster -On physical exam, patient was found to have an erythematous rash consisting of plaques and papules just under the right breast and extending to the mid axillary line and just posterior. Although patient does report occasionally getting a rash under her breasts and using nystatin, which does help, the appearance of this rash seems to be more consistent with zoster extending across the T6 dermatome. Is exquisitely tender to light touch. Cellulitis and ela seem less likely at this time, but were considered -Initiate valacyclovir 1g PO q12h x 7 days -Isolation precautions -Tramadol 50mg PO q6h PRN Chronic Medical Problems: -Previous history of PE: Hold home warfarin right now given supratherapeutic INR (4.8) -HFpEF: Continue home lasix 20mg PO daily -Paroxysmal atrial fibrillation: In NSR here, rate WNL; continue home carvedilol 25mg PO daily -COPD: Continue Spiriva, breo ellipta, 2L oxygen via [place] (home rate) -HTN: Continue home hydralazine 25mg PO b.i.d. Dispo: Observation at med-surg w/ tele -- isolation precautions Diet: Cardiac diet PPX: SCDs, supratherapeutic INR - hold home warfarin for now Code: DNR/DNI (2) Acute upper abdominal pain: (3) COPD (chronic obstructive pulmonary disease): (4) Paroxysmal atrial fibrillation: (5) Squamous cell lung cancer: (6) Hypertension: (7) Hyperlipidemia: (8) CKD (chronic kidney disease), stage III: Admission and Anticipated Discharge Date Admission Date: 07/17/2020 History of Present Illness Primary Care Provider: Ritu Pacheco MD Amanda Link is an 79-year-old female with a notable past medical history of AAA s/p repair in 2015, HFpEF (last EF 60-65% in 03/2019), CKD with baseline Cr 1.8-2.0, paroxysmal atrial fibrillation, prior pulmonary embolism in 2012, lung squamous cell carcinoma s/p lobectomy, and 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 Then beginning on , she reports feeling a "achy, sharp, vague pain" that has been persistent, but progressive in nature. She denies any trauma or overexertion throughout this time period. She says that this pain has not resulted a change in her appetite, bowel movements, and further denies any nausea, vomiting, or diarrhea. Interestingly, she says that perhaps lying back and walking around bothers the pain more, whereas sitting up makes it a little better. She also notes that this pain has interrupted her sleep over the last night. She denies any new medications, no dysuria, no urinary frequency, and no pain elsewhere. She further denies any fevers, chills, night sweats, upper or lower respiratory symptoms. Of note, she does have COPD and is on home oxygen, but reports no worsening shortness of breath lately. No chest pain or pressure or palpitations. Patient does note recently being prescribed nystatin for rash that appears underneath her breasts, but is unable to characterize the exact timeframe. See physical exam below, she was unaware that she currently had a rash. In the ED, she was found to be hemodynamically stable and afebrile with intermittent hypertension. She did undergo an ECG which demonstrated normal sinus rhythm without any acute changes. Her CBC was unremarkable with the exception of very mild leukopenia at 4.4. BMP did demonstrate a BUN of 28 and creatinine 1.71, which is actually a little bit below normal for her (baseline creatinine is 1.8-2.0). LFTs within normal limits. Troponin <0.015. Lipase normal at 76. UA did demonstrate 1+ leuk esterase, 4+ bacteria, and 10-30 urine WBCs in the presence of epithelial cells. CT of the abdomen and pelvis did not demonstrate any acute processes within the abdomen or pelvis on the unenhanced exam; multiple fat-containing ventral hernias, and stable postoperative findings of the abdominal aorta with mild dilatation of the distal descending thoracic aorta and abdominal aorta were noted. Biliary ultrasound did demonstrate radiological findings consistent with gallbladder adenomyomatosis, but no calculi or evidence of ductal dilatation. Mesenteric ultrasound showed no significant stenosis within the celiac or SMA, but JEFF was obstructed by bowel gas Allergies Allergy/AdvReac Type Severity Reaction Status Date / Time chlorhexidine Allergy Mild HIVES,RED Verified 07/17/20 14:31 RASH Home Medications Home Medications Medication Instructions Recorded Confirmed Type ferrous sulfate 325 mg PO QAM 12/23/18 07/21/20 History cyanocobalamin (vitamin B-12) 1,000 mcg PO QAM 05/02/19 07/21/20 History [Vitamin B-12] Oxygen Home #1 ea 05/16/19 07/21/20 Rx docusate sodium 100 mg capsule 100 mg PO DAILY PRN cap 06/05/19 07/21/20 History albuterol sulfate 90 mcg/actuation 1 puffs INH Q6H PRN 07/31/19 07/21/20 History aerosol inhaler carvedilol 25 mg tablet 25 mg PO BID #180 tab 10/02/19 07/21/20 Rx ergocalciferol (vitamin D2) 1,250 50,000 unit PO MONTHLY #3 cap 01/20/20 07/21/20 Rx mcg (50,000 unit) capsule furosemide 20 mg tablet 20 mg PO QAM #60 tab 03/11/20 07/21/20 Rx hydralazine 25 mg tablet 25 mg PO BID #180 tab 04/27/20 07/21/20 Rx nystatin 100,000 unit/gram topical 1 appln TOP BID PRN gm 06/11/20 07/21/20 History cream simvastatin 40 mg tablet 40 mg PO HS #90 tab 06/22/20 07/21/20 Rx Spiriva Respimat 1 puffs INH BID 07/17/20 07/21/20 History warfarin 1 mg PO TH 07/17/20 07/21/20 History warfarin 2 mg PO SUMOTUWEFRSA 07/17/20 07/21/20 History valacyclovir [Valtrex] 1,000 mg PO DAILY 6 Days #6 tab 07/18/20 07/21/20 Rx Past Med/Surg History Medical History (Updated 07/19/20 @ 13:05 by Nikolas Santana MD) Anemia Cardiomyopathy CKD (chronic kidney disease) BASELINE CREATININE 1.6-1.8 PER CHART REVIEW COPD (chronic obstructive pulmonary disease) Coronary artery disease NON-OBSRTUCTIVE History of abdominal aortic aneurysm (AAA) S/P REPAIR 2016 History of NE (myocardial infarction) 2016= MEDICALLY MANAGED Hyperlipidemia Hypertension Lung nodule Mitral regurgitation Multinodular goiter Nocturnal hypoxemia 2L AT HS Osteoarthritis Pulmonary embolism RECURRENT (~2012) ON COUMADIN 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 Takotsubo syndrome 2016 Vitamin D deficiency Surgical History AAA (abdominal aortic aneurysm) S/P REPAIR 2016 History of bladder surgery TURBT History of bronchoscopy EBUS, Navigational bronch with biopsy: 02/21/19: Grade 2 view, MAC 3, ETT 8.5 History of lobectomy of lung History of tooth extraction 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) Family History Sister Skin cancer Mother Cancer Other Dyslipidemia Hypertension Malignant neoplasm of bone Denies family history of Colon cancer Ovarian cancer Prostate cancer Kidney disease Myocardial infarction Breast cancer Social History Smoking Status: Former smoker Cigarettes Per Day: 30; Second Hand Exposure: No; Hx Alcohol Use: No Hx Substance Use: No Preferred Language: Irish Communication Ability: Effective Visual Impairment: No Limitations Hearing Ability: Normal Transit Mechanic Required: No Beliefs That Will Affect Care: None marital status: / Current Living Situation: Alone current occupational status: retired Feels Safe at Home: Yes Childhood Exposure to Second-Hand Smoke: Yes Dental Care, Regularly: No Physical Activity Frequency: Does not Exercise Seatbelt Use: always Sunscreen Use: No Assistive Devices: Glasses and Oxygen - at Night Review of Systems Review of Systems: As per HPI Physical Exam Constitutional: Well-appearing 79-year-old female who is lying relaxed in her hospital bed, not in any apparent distress. She converses in full sentences. Alert and oriented during our conversation. Eyes: PERRL, conjunctivae normal, anicteric sclerae ENMT: external ear and nose normal, oropharynx normal Neck: trachea midline, no thyromegaly Respiratory: normal respiratory effort, lungs clear to auscultation Cardiovascular: Normal rate and regular rhythm. S1 and S2 are present without any murmurs rubs or gallops. Gastrointestinal (Abdomen): Normal active bowel sounds. The abdomen is not distended. Under the right breast, there is a mixture of plaques and papules that are erythematous and extend posterior to the midaxillary line. This rash is tender to even light palpation. There is also pain to palpation in the epigastrium. Otherwise, no tenderness to palpation. No rebound or guarding. Skin: no jaundice See GI above Psychiatric: A+Ox3, euthymic affect Results & Data Results & Data ([facility]) Vital Signs (Past 12 Hours) Vital Signs Temp Pulse Pulse Resp BP BP Pulse Ox 07/17/20 18:00 66 22 178/72 H 100 07/17/20 17:30 66 15 175/78 H 98 07/17/20 17:00 61 17 135/67 100 07/17/20 16:30 62 16 146/68 H 100 07/17/20 16:06 60 15 138/70 100 07/17/20 16:05 62 15 138/70 100 07/17/20 16:00 62 15 136/72 100 07/17/20 15:30 67 15 136/72 91 07/17/20 15:03 63 63 16 154/79 H 154/79 H 93 07/17/20 15:02 68 20 94 07/17/20 14:30 69 18 121/74 93 07/17/20 14:00 67 16 132/65 92 07/17/20 13:55 68 17 141/79 H 92 07/17/20 13:30 69 19 141/79 H 92 07/17/20 12:30 68 19 160/81 H 95 07/17/20 12:03 75 21 147/74 H 95 07/17/20 11:36 79 22 107/74 95 07/17/20 11:23 36.8 C 91 H 20 127/71 94 Code Status & VTE Plan VTE Prophylaxis Plan VTE Prophylaxis will be ordered: Yes Supervising Physician Co-Signing Physician Notes I personally saw and examined the patient. I verified all nugent points and agree with resident physician Dr Huey Pringle with the following exceptions and/or additions: 79 year old female presents with abdominal pain. Lives alone and in too much pain to be discharged home. O/E maculopapular rash in classical right sided dermatomal distribution consistent with shingles. A/P Valtrex for shingles, acetaminophen +/- tramadol for pain. No further concerning findings from ER workup for abdominal pain. Pain on palpation consistent with shingles rash on abdomen and back. Resident Activity Tracking Resident Involvement: Resident Care Provided Care Provided: Adult Hospital Medicine (1) Hyperlipidemia Hyperlipidemia type: unspecified Qualified Code(s): E78.5 - Hyperlipidemia, unspecified (2) COPD (chronic obstructive pulmonary disease) COPD type: unspecified COPD Qualified Code(s): J44.9 - Chronic obstructive pulmonary disease, unspecified (3) Squamous cell lung cancer Laterality: right Qualified Code(s): C34.91 - Malignant neoplasm of unspecified part of right bronchus or lung (4) Hypertension Hypertension type: essential hypertension Qualified Code(s): I10 - Essential (primary) hypertension
--- NOTE | 2020-07-17 18:53 | Ultrasound Report ---
US duplex mesenteric CLINICAL HISTORY: Generalized abdominal pain. COMPARISON STUDY: Abdomen and pelvis CT 07/17/2020. FINDINGS: The peak systolic velocity within the celiac artery is at the upper limits of normal measur ing 194 cm/s. Peak systolic velocities within the superior mesenteric artery measure up to 180 cm/s. The inferior mesenteric artery is obscured by overlying bowel gas. IMPRESSION: 1. No hemodynamically significant stenosis seen within the celiac or superior mesenteric artery. 2. Inferior mesenteric artery was obscured by overlying bowel gas. ACT 112: Negative or not required by law. Electronically signed by: Lopez Lee M.D. 07/17/2020 6:51 PM
[2020-07-17] MEDS ORDERED: ONDANSETRON INJ 2 MG/ML 2 ML VIAL IV PRN (19:27)
[2020-07-17] MEDS ORDERED: ACETAMINOPHEN 325 MG TAB PO PRN (19:27)
[2020-07-17] MEDS ORDERED: DOCUSATE SODIUM 100 MG CAP PO PRN (19:27)
[2020-07-17] MEDS ORDERED: POLYETHYLENE (MIRALAX) 17 GM PACK PO PRN (19:27)
[2020-07-17] MEDS ORDERED: ALBUTEROL HFA 8 GM INHALER INH PRN (19:27)
[2020-07-17] MEDS ORDERED: ALUMINUM/MAGNESIUM SUSP 30 ML UDC PO PRN (19:27)
[2020-07-17] MEDS ORDERED: TRAMADOL HCL 50 MG TABLET PO STA (20:13)
[2020-07-17] MEDS: SIMVASTATIN 40 MG TAB PO SCH (20:32)
[2020-07-17] MEDS: carvediloL 25 MG TAB PO SCH (20:32)
[2020-07-17] MEDS: VALACYCLOVIR HCL 500 MG TABLET PO SCH (23:54)
[2020-07-18] MEDS: carvediloL 25 MG TAB PO SCH ×2 (07:58→21:18)
[2020-07-18] MEDS: UMECLIDINIUM BROMIDE 62.5MCG/BLISTER 7 PUFFS/INHALER INH SCH (07:59)
[2020-07-18] MEDS: CYANOCOBALAMIN 500 MCG TABLET (VITAMIN B-12) PO SCH (07:59)
[2020-07-18] MEDS ORDERED: FUROSEMIDE 20 MG TAB PO SCH (09:00)
[2020-07-18] MEDS ORDERED: TRAMADOL HCL 50 MG TABLET PO PRN (12:44)
[2020-07-18] MEDS: ACETAMINOPHEN 500 MG TAB PO SCH ×2 (15:00→21:17)
--- NOTE | 2020-07-18 18:36 | Hospitalist Progress Note ---
Date of Service July 18, 2020 Assessment & Plan (1) Shingles: Continued inpatient admission due to patient not feeling safe to go home. Valtrex 1 g QPM for total 7 days Acetaminophen + tramadol PRN for pain Isolation precautions (2) Acute upper abdominal pain: Secondary to shingles as above. (3) COPD (chronic obstructive pulmonary disease): Continue Spiriva, breo ellipta, 2L oxygen via [place] (home rate) (4) Hypertension: Continue home hydralazine 25mg PO b.i.d. (5) Hyperlipidemia: Simvastatin 40 mg p.o. at bedtime (6) CKD (chronic kidney disease), stage III: At baseline. Urine appears more concentrated than usual. Will hold Lasix and monitor BMP. (7) Asymptomatic bacteriuria: No symptoms listed from history. We will continue to monitor presents and if she starts having symptoms we will treat. Urine culture pending at this time. (8) Squamous cell lung cancer: (9) Paroxysmal atrial fibrillation: Supratherapeutic INR. Warfarin held on admission. Will repeat INR to [place] to determine further treatment. Admission and Anticipated Discharge Date Admission Date: July 17, 2020 Subjective Feels improved with using acetaminophen alone. Both patient and her daughter are concerned about her being discharged today with elevated INR, positive urine culture, shingles rash pain, requesting PT eval. Patient lives alone. Pain still not under control and concerned about using tramadol for pain as previous had confusion to other opiates. Urine culture positive - no dysuria, change in urine frequency, incontinence, color, odor. No confusion. As per her daughter the patient is at her baseline mentation. No fevers, chills, back/flank pain. Review of Systems Review of Systems: All systems reviewed & are unremarkable except as noted in HPI & below Physical Exam Constitutional: + obese; no acute distress Respiratory: normal respiratory effort, lungs clear to auscultation Cardiovascular: RRR, no murmur, no edema Skin: + rash (Approx T8/9 dermatomal right sided rash, pain on palpation) Psychiatric: A+Ox3, euthymic affect Results & Data Results & Data ([facility]) Vital Signs (Past 12 Hours) Vital Signs Temp Pulse Pulse Resp BP Pulse Ox 07/18/20 15:01 64 07/18/20 12:17 36.7 C 72 18 119/67 91 07/18/20 08:12 36.7 C 68 17 132/73 96 07/18/20 07:09 68 PG Care Time/CCT Total # of Minutes Spent Total Time Spent with Patient: Total time spent is greater than 50% in coordination of care (as documented) at patient's floor/unit and/or counseling patient: Coding Level of Care Code 58378 Subseq Obs Care Lvl 2 Diagnoses Shingles B02.9 Herpes zoster complications: without complications Acute upper abdominal pain R10.10 COPD (chronic obstructive pulmonary disease) J44.9 COPD type: unspecified COPD Hypertension I10 Hypertension type: essential hypertension Hyperlipidemia E78.5 Hyperlipidemia type: unspecified CKD (chronic kidney disease), stage III N18.3 Asymptomatic bacteriuria R82.71 Squamous cell lung cancer C34.91 Laterality: right Paroxysmal atrial fibrillation I48.0 (1) Shingles Herpes zoster complications: without complications Qualified Code(s): B02.9 - Zoster without complications (2) Hyperlipidemia Hyperlipidemia type: unspecified Qualified Code(s): E78.5 - Hyperlipidemia, unspecified (3) COPD (chronic obstructive pulmonary disease) COPD type: unspecified COPD Qualified Code(s): J44.9 - Chronic obstructive pulmonary disease, unspecified (4) Squamous cell lung cancer Laterality: right Qualified Code(s): C34.91 - Malignant neoplasm of unspecified part of right bronchus or lung (5) Hypertension Hypertension type: essential hypertension Qualified Code(s): I10 - Essential (primary) hypertension
[2020-07-18] MEDS: SIMVASTATIN 40 MG TAB PO SCH (21:17)
[2020-07-18] MEDS: VALACYCLOVIR HCL 500 MG TABLET PO SCH (21:18)
[2020-07-19 06:08] LABS: INR 2.9 (0.9-1.1); Prothrombin Time 28.5 Seconds (9.0-12.0)
[2020-07-19 06:33] LABS: BUN Creatinine Ratio 20.4 (10-20); Calcium 8.5 mg/dl (8.5-10.1); Est GFR (African American) 29.3; Est GFR (Non-African American) 25.3; Potassium 4.3 mmol/L (3.5-5.1)
[2020-07-19] MEDS: ACETAMINOPHEN 500 MG TAB PO SCH (08:38)
[2020-07-19] MEDS: UMECLIDINIUM BROMIDE 62.5MCG/BLISTER 7 PUFFS/INHALER INH SCH (08:39)
[2020-07-19] MEDS: CYANOCOBALAMIN 500 MCG TABLET (VITAMIN B-12) PO SCH (08:39)
[2020-07-19] MEDS: carvediloL 25 MG TAB PO SCH (08:39)
--- NOTE | 2020-07-19 13:11 | Discharge Summary ---
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 Then beginning on , she reports feeling a "achy, sharp, vague pain" that has been persistent, but progressive in nature. She denies any trauma or overexertion throughout this time period. She says that this pain has not resulted a change in her appetite, bowel movements, and further denies any nausea, vomiting, or diarrhea. Interestingly, she says that perhaps lying back and walking around bothers the pain more, whereas sit ting up makes it a little better. She also notes that this pain has interrupted her sleep over the last night. She denies any new medications, no dysuria, no urinary frequency, and no pain elsewhere. She further denies any fevers, chills, night sweats, upper or lower respiratory symptoms. Of note, she does have COPD and is on home oxygen, but reports no worsening shortness of breath lately. No chest pain or pressure or palpitations. Patient does note recently being prescribed nystatin for rash that appears underneath her breasts, but is unable to characterize the exact timeframe. See physical exam below, she was unaware that she currently had a rash. In the ED, she was found to be hemodynamically stable and afebrile with intermittent hypertension. She did undergo an ECG which demonstrated normal sinus rhythm without any acute changes. Her CBC was unremarkable with the exception of very mild leukopenia at 4.4. BMP did demonstrate a BUN of 28 and creatinine 1.71, which is actually a little bit below normal for her (baseline creatinine is 1.8-2.0). LFTs within normal limits. Troponin <0.015. Lipase normal at 76. UA did demonstrate 1+ leuk esterase, 4+ bacteria, and 10-30 urine WBCs in the presence of epithelial cells. CT of the abdomen and pelvis did not demonstrate any acute processes within the abdomen or pelvis on the unenhanced exam; multiple fat-containing ventral hernias, and stable postoperative findings of the abdominal aorta with mild dilatation of the distal descending thoracic aorta and abdominal aorta were noted. Biliary ultrasound did demonstrate radiological findings consistent with gallbladder adenomyomatosis, but no calculi or evidence of ductal dilatation. Mesenteric ultrasound showed no significant stenosis within the celiac or SMA, but JEFF was obstructed by bowel gas Admission Exam Per Admitting Provider Constitutional: Well-appearing 79-year-old female who is lying relaxed in her hospital bed, not in any apparent distress. She converses in full sentences. Alert and oriented during our conversation. Eyes: PERRL, conjunctivae normal, anicteric sclerae ENMT: external ear and nose normal, oropharynx normal Neck: trachea midline, no thyromegaly Respiratory: normal respiratory effort, lungs clear to auscultation Cardiovascular: Normal rate and regular rhythm. S1 and S2 are present without any murmurs rubs or gallops. Gastrointestinal (Abdomen): Normal active bowel sounds. The abdomen is not distended. Under the right breast, there is a mixture of plaques and papules that are erythematous and extend posterior to the midaxillary line. This rash is tender to even light palpation. There is also pain to palpation in the epigastrium. Otherwise, no tenderness to palpation. No rebound or guarding. Skin: no jaundice See GI above Psychiatric: A+Ox3, euthymic affect Principal Diagnosis Shingles Supratherapeutic INR Discharge Exam Constitutional + obese; no acute distress Respiratory normal respiratory effort, lungs clear to auscultation Cardiovascular RRR, no murmur, no edema Skin + rash (Approx T8/9 dermatomal right sided rash, pain on palpation) Psychiatric A+Ox3, euthymic affect Discharge Data Allergies Allergy/AdvReac Type Severity Reaction Status Date / Time chlorhexidine Allergy Mild HIVES,RED Verified 07/17/20 14:31 RASH Consultations 07/17/20 15:23 ED Decision to Admit Stat Ordered Studies 07/17/20 11:52 CT abd pelvis wo con Stat 07/17/20 13:21 US gallbladder Stat 07/17/20 15:13 US duplex mesenteric Stat Hospital Course (1) Shingles: Amanda Link is an 79 year old female who was observed at [facility] from July 17-2019 due to acute onset abdominal pain. This pain appears to be related to shingles. She was started on renally dosed Valtrex for total course of 7 days. Stay was prolonged due to pain and patient concerned about managing at home by herself. INR initially elevated but 2.8 on day of discharge. Her warfarin was held for 2 days during admission. She will restart her usual dosing on Monday with repeat INR on Monday, to be sent to her PCP. Her urine culture grew Klebsiella but suspect this is asymptomatic bacteruria as discussed with the patient we elected not to treat this in the setting of no symptoms. She was advised to call her PCP if she were to develop symptoms. Her creatinine was also elevated on discharge. Suspect this is due to dehydration and your lasix was held for 1 day. This can be resumed on discharge but with repeat kidney test as ordered on Monday. She is now medically stable for discharge and keen to go home. (2) Acute upper abdominal pain: (3) COPD (chronic obstructive pulmonary disease): (4) Hypertension: (5) Hyperlipidemia: (6) CKD (chronic kidney disease), stage III: (7) Asymptomatic bacteriuria: (8) Squamous cell lung cancer: (9) Paroxysmal atrial fibrillation: Total Time Total Time Spent Total Time Spent (In Minutes): 35 Total Time Includes: Examination of the Patient, Discharge Planning, Medication Reconciliation and Communication With Other Providers Discharge Plan Discharge Items Patient Disposition: Home - Self-Care Reason For Visit: ABDOMINAL PAIN Discharge Diagnosis: Shingles Supratherapeutic INR Activity: Resume your previous activity Non-emergency contact: Primary Care Provider Call non-emergency contact if: you have any medication questions and your symptoms worsen Follow-up/Referrals: iRtu Pacheco MD [Primary Care Provider] - (1 week - follow up UTI symptoms? renal function, shingles) Diet: Heart Healthy Addtl Attending Provider Instructions: You were observed at [facility] from July 17-2019 due to acute onset abdominal pain. This pain appears to be related to an shingles rash. You were started on Valtrex (antiviral) medication for this. Use acetaminophen 1 g 3 times a day for pain - this works better if you take it regularly rather than as needed but she should wean off if you are not having significant pain. INR initially elevated but 2.8 on day of discharge. Your warfarin was held for 2 ays during admission. Please continue on your usual dosing with repeat INR on Monday. Your urine culture grew Klebsiella but suspect this is asymptomatic bacteruria t herefore as discussed we elected not to treat this. If you develop symptoms of fever, chills or painful urination please contact your PCP as likely you have a UTI. Your BMP was elevated on discharge. Suspect this is due to dehydration and your lasix was held for 1 day. This can be resumed on discharge but with repeat kidney test as ordered on Monday. Pending Studies at Discharge: No Stand-Alone Forms: My [facility], Smoking Cessation Medications and DC Order Prescriptions: New valacyclovir [Valtrex] 1 gram tablet 1,000 mg PO DAILY 6 Days Qty: 6 RF: 0 Continued ergocalciferol (vitamin D2) 1,250 mcg (50,000 unit) capsule 50,000 unit PO MONTHLY Qty: 3 RF: 3 furosemide [Lasix] 20 mg tablet 20 mg PO QAM Qty: 60 RF: 5 hydralazine 25 mg tablet 25 mg PO BID Qty: 180 RF: 1 fluticasone furoate-vilanterol [Breo Ellipta] 100-25 mcg/dose blister with device 1 inh inhalation QAM RF: 0 simvastatin 40 mg tablet 40 mg PO HS Qty: 90 RF: 3 nystatin 100,000 unit/gram cream 1 appln TOP BID PRN (Reason: .) RF: 0 carvedilol 25 mg tablet 25 mg PO BID Qty: 180 RF: 3 (DME) Oxygen Home Liters Per Minute See Dose Instructions .ROUTE .MEDSUPPLY Qty: 1 RF: 0 albuterol sulfate [Ventolin HFA] 90 mcg/actuation HFA aerosol inhaler 1 puffs INH Q6H PRN (Reason: Shortness Of Breath) RF: 0 ferrous sulfate 325 mg (65 mg iron) Tablet 325 mg PO QAM RF: 0 cyanocobalamin (vitamin B-12) [Vitamin B-12] 1,000 mcg Tablet 1,000 mcg PO QAM RF: 0 docusate sodium 100 mg capsule 100 mg PO DAILY PRN (Reason: Constipation) RF: 0 warfarin 2 mg tablet 2 mg PO SUMOTUWEFRSA RF: 0 warfarin 1 mg tablet 1 mg PO TH RF: 0 Spiriva Respimat 2.5 mcg/actuation mist 1 puffs INH BID RF: 0 Discharge Orders: Discharge Order (Routine); Ordered 07/19/20 Ordered By: Nikolas Santana Admission Data Admit Date/Time: 07/17/20 18:13 Attending Provider: Ramirez Woodall Admit Provider: Huey Pringle Primary Care Provider: Ritu Pacheco V. Other Providers: Nikolas Santana Other Interventions: Discharge Summary Assessment (RN) Last Done: 07/19/20 13:12 Coding Level of Care Code 65983 OBS Care - Discharge Diagnoses Shingles B02.9 Herpes zoster complications: without complications Acute upper abdominal pain R10.10 COPD (chronic obstructive pulmonary disease) J44.9 COPD type: unspecified COPD Hypertension I10 Hypertension type: essential hypertension Hyperlipidemia E78.5 Hyperlipidemia type: unspecified CKD (chronic kidney disease), stage III N18.3 Asymptomatic bacteriuria R82.71 Squamous cell lung cancer C34.91 Laterality: right Paroxysmal atrial fibrillation I48.0
[2020-07-19] MEDS ORDERED: WARFARIN SOD 2 MG TAB PO SCH (16:00)
[2020-07-23] MEDS ORDERED: WARFARIN SOD 1 MG TAB PO SCH (16:00)
[2020-07-29] MEDS ORDERED: ERGOCALCIFEROL 50,000 UNITS CAP PO SCH (09:00)
== END 2020-07-19 13:51 | disposition home or self-care (01) ==
LOC: ED 11:22 → INTOOBSV 18:13 → SUATTDRO 18:13 → 2N 18:13 → 2W 21:06
DX: B02.9 Zoster without complications; R79.1 Abnormal coagulation profile; Z99.81 Dependence on supplemental oxygen; N18.3 Chronic kidney disease, stage 3 (moderate); J44.9 Chronic obstructive pulmonary disease, unspecified; Z79.899 Other long term (current) drug therapy; K43.9 Ventral hernia without obstruction or gangrene; E78.5 Hyperlipidemia, unspecified; Z86.711 Personal history of pulmonary embolism; Z87.891 Personal history of nicotine dependence; Z88.8 Allergy status to other drugs, medicaments and biological substances; Z85.51 Personal history of malignant neoplasm of bladder; I48.0 Paroxysmal atrial fibrillation; I12.9 Hypertensive chronic kidney disease with stage 1 through stage 4 chronic kidney disease, or unspecified chronic kidney disease; Z85.118 Personal history of other malignant neoplasm of bronchus and lung; Z79.01 Long term (current) use of anticoagulants

== ENCOUNTER 2022-05-16 14:05 | Inpatient (IN) ==
[2022-05-16] MEDS ORDERED: ALBUT/IPRATROP 3MG/0.5MG NEB 3 ML VIAL INH STA (15:18)
--- NOTE | 2022-05-16 15:24 | Emergency Department Note ---
History of Present Illness General Chief complaint: Shortness of Breath/Dyspnea Stated complaint: Difficulty breathing Time Seen by Provider: 05/16/22 15:12 History of Present Illness Maximum Pain Intensity: 0 81-year-old female presents to the ED with a chief complaint of " cannot breath e". The patient states that her symptoms started yesterday. She states that her symptoms started while she was at rest. She also reports a nonproductive cough since yesterday. She states that her breathing is worse with exertion. She is chronically on apixaban for history of PE and paroxysmal A. fib. Denies any pain or swelling in the legs. No sick contacts. She does use 2 L of oxygen at home. No additional complaints at this time. Home Medications Medication Instructions Recorded Confirmed Type ferrous sulfate 325 mg (65 mg 325 mg PO QAM 12/23/18 05/12/22 History iron) tablet cyanocobalamin (vitamin B-12) 1,000 mcg PO QAM 05/02/19 05/12/22 History 1,000 mcg tablet (Vitamin B-12) Oxygen Home #1 ea 05/16/19 05/12/22 Rx docusate sodium 100 mg capsule 100 mg PO DAILY PRN Constipation 06/05/19 05/12/22 History albuterol sulfate 90 mcg/actuation 1 puffs inhalation Q6H PRN 07/31/19 05/12/22 History aerosol inhaler (Ventolin HFA) Shortness Of Breath nystatin 100,000 unit/gram topical 1 applic topical BID PRN . #15 10/22/20 05/12/22 Rx cream grams fluocinolone 0.01 % topical 1 applic topical BID #60 mL 11/18/20 05/12/22 Rx solution simvastatin 40 mg tablet 40 mg PO HS #90 tabs 06/24/21 05/12/22 Rx carvedilol 25 mg tablet 25 mg PO BID #180 tabs 09/29/21 05/12/22 Rx fluticasone furoate 100 1 inh inhalation DAILY 90 days #3 11/16/21 05/12/22 Rx mcg-vilanterol 25 mcg/dose Inhalers inhalation powder (Breo Ellipta) tiotropium bromide 2.5 2 inh inhalation QAM #3 Inhalers 11/16/21 05/12/22 Rx mcg/actuation mist for inhalation (Spiriva Respimat) ergocalciferol (vitamin D2) 1,250 50,000 unit PO MONTHLY #3 caps 12/27/21 05/12/22 Rx mcg (50,000 unit) capsule furosemide 20 mg tablet (Lasix) 20 mg PO QAM #30 tabs 03/25/22 05/12/22 Rx hydralazine 25 mg tablet 25 mg PO BID #180 tabs 04/11/22 05/12/22 Rx allopurinol 100 mg tablet 100 mg PO DAILY #30 tabs 05/10/22 05/12/22 Rx prednisone 10 mg tablet See Rx Instructions PO DAILY 8 05/10/22 05/12/22 Rx days #20 tabs apixaban 2.5 mg tablet 2.5 mg PO BID #180 tabs 05/11/22 05/12/22 Rx Allergies Allergy/AdvReac Type Severity Reaction Status Date / Time chlorhexidine Allergy Mild HIVES,RED Verified 05/12/22 13:32 RASH Past Med/Surg History Medical History Acute on chronic diastolic (congestive) heart failure Acute upper abdominal pain Anemia Cardiomyopathy Cellulitis CKD (chronic kidney disease) BASELINE CREATININE 1.6-1.8 PER CHART REVIEW COPD (chronic obstructive pulmonary disease) Coronary artery disease NON-OBSRTUCTIVE Cough Dyspnea Edema due to hypoalbuminemia Elevated serum creatinine Fall Hand pain History of abdominal aortic aneurysm (AAA) S/P REPAIR 2016 History of MN (myocardial infarction) 2016= MEDICALLY MANAGED Hyperlipidemia Hypertension Left wrist pain Lung nodule Mitral regurgitation Multinodular goiter Nasal bleeding Nocturnal hypoxemia 2L AT HS Osteoarthritis Pulmonary embolism RECURRENT (~2012) ON COUMADIN 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 Sacroiliitis Secondary renal hyperparathyroidism Shingles Takotsubo syndrome 2016 URI (upper respiratory infection) Vitamin D deficiency Surgical History AAA (abdominal aortic aneurysm) S/P REPAIR 2016 History of bladder surgery TURBT History of bronchoscopy EBUS, Navigational bronch with biopsy: 02/21/19: Grade 2 view, MAC 3, ETT 8.5 History of lobectomy of lung History of tooth extraction 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) Family History Sister Skin cancer Mother Cancer Other Dyslipidemia Hypertension Malignant neoplasm of bone Denies family history of Colon cancer Ovarian cancer Prostate cancer Kidney disease Myocardial infarction Breast cancer Social History Smoking Status: Smoker, status unknown Cigarettes Per Day: 30; Second Hand Exposure: No; Hx Alcohol Use: No Hx Substance Use: No Preferred Language: Thai Communication Ability: Effective Visual Impairment: No Limitations Hearing Ability: Normal Client Services Administrator Required: No Beliefs That Will Affect Care: None marital status: / Current Living Situation: Alone current occupational status: retired Feels Safe at Home: Yes Childhood Exposure to Second-Hand Smoke: Yes Dental Care, Regularly: No Physical Activity Frequency: Does not Exercise Seatbelt Use: always Sunscreen Use: No Assistive Devices: Glasses and Oxygen - at Night Review of Systems A total of 10 systems reviewed and were otherwise negative Physical Exam Vital Signs Vital Signs - 24 hr 05/16/22 14:22 05/16/22 14:22 05/16/22 14:22 Temperature 37.1 C Temperature Source Oral Pulse Rate 82 Pulse Rate [Apical] Pulse Rhythm Regular Pulse Rhythm [Apical] Respiratory Rate 18 Respiratory Effort / Characteristics Short of Breath Respiratory Depth Normal Respiratory Pattern Regular Blood Pressure 117/83 Blood Pressure [Left Arm] Blood Pressure Mean 94 Blood Pressure Mean [Left Arm] Pulse Oximetry 88 L 94 Oxygen Delivery Method Room Air Nasal Cannula Nasal Cannula Oxygen Flow Rate 2 2 Sepsis Recent Fever Within 48 Hours No Sepsis New/Unexplained Change in Mental Status No Sepsis Action Taken by Nursing No Action Required Oxygen Flow Rate - Titration 2 05/16/22 14:28 05/16/22 16:20 Temperature Temperature Source Pulse Rate Pulse Rate [Apical] 84 77 Pulse Rhythm Pulse Rhythm [Apical] Regular Respiratory Rate 19 19 Respiratory Effort / Characteristics Short of Breath Respiratory Depth Respiratory Pattern Blood Pressure Blood Pressure [Left Arm] 182/92 H 180/90 H Blood Pressure Mean Blood Pressure Mean [Left Arm] 122 120 Pulse Oximetry 94 95 Oxygen Delivery Method Nasal Cannula Nasal Cannula Oxygen Flow Rate 2 2 Sepsis Recent Fever Within 48 Hours Sepsis New/Unexplained Change in Mental Status Sepsis Action Taken by Nursing Oxygen Flow Rate - Titration CONSTITUTIONAL/VITAL SIGNS: Reviewed / noted above. GENERAL: Non-toxic in appearance. INTEGUMENTARY: Warm, dry, and [place]. HEAD: Normocephalic. EYES: without scleral icterus or trauma. ENT/OROPHARYNX: clear and moist. LYMPHADENOPATHY/NECK: Is supple without lymphadenopathy or meningismus. RESPIRATORY: Clear to auscultation bilaterally. No increased work of breathing. The patient does have some mucus sounds coming from her trachea that she states that she has difficulty coughing up but can cough it up to swallow up. CARDIOVASCULAR: Regular rate and rhythm. GI/ABDOMEN: Soft and nontender. No organomegaly or pulsatile mass. EXTREMITIES: Warm and well perfused. BACK: No CVA tenderness. NEUROLOGICAL: Intact without focal deficits. PSYCHIATRIC: normal affect. MUSCULOSKELETAL: Normally developed with good muscle tone. TRIAGE NURSING DOCUMENTATION REVIEWED. Course Administered Medications Discontinued Medications Albuterol (Albut/Ipratrop 3mg/0.5mg Neb 3 Ml Vial) 3 ml INH NOW STA Stop: 05/16/22 15:19 Last Admin: 05/16/22 15:39 Dose: 3 ml Documented By: NISHANT Medical Decision Making Differential Diagnosis The differential was considered includes acute myocardial infarction, acute coronary syndrome, myocarditis, pericarditis, pericardial effusions /tamponad, esophageal perforation, pulmonary embolism, pneumonia, pneumothorax, cardiomyopathy, congestive heart, anemia , COPD/asthma exacerbation. Medical Records Attestation: I reviewed the patient's medical records. Home Medications Current Medication List: was personally reviewed by me Laboratory Data Attestation: I reviewed the patient's lab results. Result diagrams: 05/16/22 14:50 05/16/22 14:50 Lab Results 05/16/22 05/16/22 05/16/22 Range/Units 14:50 14:50 Unknown WBC 9.56 (4.8-10.8) K/ul RBC 3.89 L (3.93-5.22) M/uL Hgb 11.4 L (12.0-16.0) g/dl Hct 35.1 (34.1-44.9) % MCV 90.2 (80.0-100.0) fL MCH 29.3 (25.0-34.0) pg MCHC 32.5 (32.0-36.0) g/dL RDW Std Deviation 47.4 H (36.4-46.3) fL RDW Coeff of Mio 14.4 (11.5-14.5) % Plt Count 184 (130-400) K/uL MPV 9.6 (9.4-12.3) fL Immature Gran % (Auto) 0.5 % Neut % (Auto) 87.4 % Lymph % (Auto) 6.8 % [place] % (Auto) 5.1 % Eos % (Auto) 0.1 % Baso % (Auto) 0.1 % Neut # (Auto) 8.35 H (1.4-6.5) K/uL Lymph # (Auto) 0.65 L (1.2-3.4) K/uL [place] # (Auto) 0.49 (0.24-0.82) K/uL Eos # (Auto) 0.01 (0-0.50) K/uL Baso # (Auto) 0.01 (0-0.2) K/uL Immature Gran # (Auto) 0.05 H (0.00-0.02) K/uL Sodium 134 L (136-145) mmol/L Potassium 4.0 (3.5-5.1) mmol/L Chloride 98 (98-107) mmol/L Carbon Dioxide 30 (21-32) mmol/L Anion Gap 6 (3-11) BUN 39 H (6-23) mg/dl Creatinine 1.45 H (0.6-1.2) mg/dl Est Cr Clr Drug Dosing 30.2 ml/min Est GFR ( Amer) 38.5 ml/min Est GFR (Non-Af Amer) 33.2 ml/min BUN/Creatinine Ratio 26.9 H (10-20) Glucose 138 H (70-99(Fasting)) mg/dl Calcium 8.7 (8.5-10.1) mg/dl Total Bilirubin 0.8 (0.2-1.0) mg/dl AST 10 L (13-39) U/L ALT 10 (7-52) U/L Alkaline Phosphatase 89 (34-104) U/L Troponin I High Sens 30.4 H (0-14) pg/ml Total Protein 6.1 (6.0-8.3) gm/dl Albumin 3.2 L (3.4-5.0) gm/dl Globulin 2.9 (2.5-4.0) gm/dl Albumin/Globulin Ratio 1.1 (0.9-2) SARS-CoV-2, RNA, NAAT NEGATIVE (NEGATIVE) Imaging Data Radiologist's Impression: Chest X-Ray 05/16/22 15:19 XR chest 1V portable CLINICAL HISTORY: Dyspnea TECHNIQUE: Single frontal radiograph of the chest was obtained. Comparison: Comparison is made to chest radiograph 05/31/[address] chest FINDINGS: Patient is status post right lower lobectomy. No lines and tubes are seen. Demonstration rightward mediastinal shift. There is right lower lung airspace opacity including an element of atelectasis. A right pleural effusion cannot be excluded. No pneumothorax is seen. IMPRESSION: Airspace opacity and right-sided volume loss, somewhat more pronounced than the prior exam. This likely represent atelectasis with or without superimposed aspiration/pneumonia. ACT 112: Negative or not required by law. Electronically signed by: Ramirez Jade M.D. 05/16/2022 3:49 PM ECG Data Attestation: I personally reviewed and interpreted this ECG as follows: Additional Comments: Twelve-lead EKG: Per my interpretation shows a normal sinus rhythm at a rate of 85. No ST elevation. No PVCs. Normal QTC. MDM Narrative 81-year-old female with a new nonproductive cough and shortness of breath for about 24 hours. Vital signs here are stable. Hypertension. Chronic 2 L of oxygen produces sats of 94 to 95%. No distress. Some coarse upper airway sounds like mucus in the trachea/epiglottis area. Twelve-lead EKG shows a normal sinus rhythm without acute ischemic changes. The patient's troponin was elevated at 30. CBC is unremarkable. Chemistry panel shows a chronic elevation of the kidney function test. COVID test was negative. Chest x-ray is possibly suggestive of a right lower lobe infiltrate. The patient was empirically treated with IV Zithromax and IV Rocephin. She was also treated with a DuoNeb treatment. She is chronically on apixaban. She will be seen by the hospitalist for further evaluation and care. Impression & Plan Right lower lobe pneumonia, Elevated troponin Discharge Plan Visit Data Chief Complaint: Shortness of Breath/Dyspnea Stated Complaint: Difficulty breathing ED Provider: Donal Martinez Discharge Problem: Right lower lobe pneumonia, Elevated troponin Patient Disposition: Being Evaluated by Hospitalist Forms Stand Alone Forms: My [facility] [employer] Prescriptions Prescriptions: No Action nystatin 100,000 unit/gram cream 1 applic TOP BID PRN (Reason: .) Qty: 15 2RF simvastatin 40 mg tablet 40 mg PO HS Qty: 90 3RF carvedilol 25 mg tablet 25 mg PO BID Qty: 180 3RF Rx Instructions: must administer with a meal/food Breo Ellipta 100-25 mcg/dose blister with device 1 inh inhalation DAILY 90 Days Qty: 3 3RF Spiriva Respimat 2.5 mcg/actuation mist 2 inh inhalation QAM Qty: 3 3RF ergocalciferol (vitamin D2) 1,250 mcg (50,000 unit) capsule 50,000 unit PO MONTHLY Qty: 3 3RF furosemide [Lasix] 20 mg tablet 20 mg PO QAM Qty: 30 5RF hydralazine 25 mg tablet 25 mg PO BID Qty: 180 1RF prednisone 10 mg tablet See Rx Instructions PO DAILY 8 Days Qty: 20 0RF Rx Instructions: 4 tabs daily for 2 days, 3 tabs daily for 2 days,2 tab daily for 2 day , 1 tab daily for 2 days and then stop allopurinol 100 mg tablet 100 mg PO DAILY Qty: 30 5RF apixaban 2.5 mg tablet 2.5 mg PO BID Qty: 180 3RF (DME) Oxygen Home Liters Per Minute See Dose Instructions .ROUTE .MEDSUPPLY Qty: 1 0RF Dose Instruction: As directed Rx Instructions: As directed albuterol sulfate [Ventolin HFA] 90 mcg/actuation HFA aerosol inhaler 1 puffs INH Q6H PRN (Reason: Shortness Of Breath) fluocinolone 0.01 % solution 1 applic topical BID Qty: 60 0RF ferrous sulfate 325 mg (65 mg iron) Tablet 325 mg PO QAM cyanocobalamin (vitamin B-12) [Vitamin B-12] 1,000 mcg Tablet 1,000 mcg PO QAM docusate sodium 100 mg capsule 100 mg PO DAILY PRN (Reason: Constipation) Referrals Referrals: Ritu Pacheco MD [Primary Care Provider] -
[2022-05-16 15:39] LABS: Basophils # (auto) 0.01 K/uL (0-0.2); Basophils % (auto) 0.1 %; Eosinophils # (auto) 0.01 K/uL (0-0.50); Eosinophils % (auto) 0.1 %; Hematocrit (blood only) 35.1 % (34.1-44.9); Hemoglobin 11.4 g/dl (12.0-16.0); Immature Granulocytes # (auto) 0.05 K/uL (0.00-0.02); Immature Granulocytes % (auto) 0.5 %; Lymphocytes # (auto) 0.65 K/uL (1.2-3.4); Lymphocytes % (auto) 6.8 %; Mean Corpuscular Hemoglobin 29.3 pg (25.0-34.0); Mean Corpuscular Hgb Conc 32.5 g/dL (32.0-36.0); Mean Corpuscular Volume 90.2 fL (80.0-100.0); Mean Platelet Volume 9.6 fL (9.4-12.3); Monocytes # (auto) 0.49 K/uL (0.24-0.82); Monocytes % (auto) 5.1 %; Neutrophils # (auto) 8.35 K/uL (1.4-6.5); Neutrophils % (auto) 87.4 %; Platelet Count 184 K/uL (130-400); RDW Coefficient of Variation 14.4 % (11.5-14.5); RDW Standard Deviation 47.4 fL (36.4-46.3); Red Blood Count 3.89 M/uL (3.93-5.22); White Blood Count 9.56 K/ul (4.8-10.8)
--- NOTE | 2022-05-16 15:50 | XRay Report ---
XR chest 1V portable CLINICAL HISTORY: Dyspnea TECHNIQUE: Single frontal radiograph of the chest was obtained. Comparison: Comparison is made to chest radiograph 05/31/[address] chest 09/27/2021 FINDINGS: Patient is status post right lower lobectomy. No lines and tubes are seen. Demonstration rightward me diastinal shift. There is right lower lung airspace opacity including an element of atelectasis. A ri ght pleural effusion cannot be excluded. No pneumothorax is seen. IMPRESSION: Airspace opacity and right-sided volume loss, somewhat more pronounced than the prior exam. This like ly represent atelectasis with or without superimposed aspiration/pneumonia. ACT 112: Negative or not required by law. Electronically signed by: Ramirez Jade M.D. 05/16/2022 3:49 PM
[2022-05-16 15:56] LABS: Troponin I High Sensitivity 30.4 pg/ml (0-14)
[2022-05-16 15:59] LABS: Albumin Globulin Ratio 1.1 (0.9-2); Albumin Level 3.2 gm/dl (3.4-5.0); BUN Creatinine Ratio 26.9 (10-20); Bilirubin,Total 0.8 mg/dl (0.2-1.0); Calcium 8.7 mg/dl (8.5-10.1); Creatinine Clr Calc Pharmacy 30.2 ml/min; Est GFR (African American) 38.5 ml/min; Est GFR (Non-African American) 33.2 ml/min; Globulin 2.9 gm/dl (2.5-4.0); Total Protein 6.1 gm/dl (6.0-8.3)
[2022-05-16] MEDS ORDERED: cefTRIAXone SODIUM 2,000 MG/70 ML BAG IV STA (16:56)
[2022-05-16] MEDS ORDERED: AZITHROMYCIN 500 MG in DEXTROSE 5% 250 ML IV STA (16:56)
--- NOTE | 2022-05-16 18:09 | History & Physical Report ---
Date of Service May 16, 2022 Assessment & Plan (1) CORONA (dyspnea on exertion): Plan: Suspect this possibly secondary to CHF exacerbation although right lower lobe pneumonia cannot be entirely excluded. Also has a history of COPD Will admit to a monitored bed I would like plain CT of the chest to further delineate, exposures patient has a previous history of scram cell carcinoma lung Will diurese with Lasix 20 mg IV every 12 hours. Patient is typically on 20 mg p.o. daily Will cover with Rocephin and Zithromax as well pending chest x-ray Check BNP, procalcitonin. Check sputum culture Check 2D echo Of note, patient was seen very recently cardiology prior to her symptomatology. Last 2D echo was 2018, will repeat this admission and asked cardiology to evaluate for further recommendations (2) Elevated troponin: Plan: Suspect this is secondary to type II cardiac strain Will continue to trend enzymes Already anticoagulated with Xarelto, will continue Further cardiac work-up as noted above (3) Paroxysmal atrial fibrillation: Plan: Xarelto for anticoagulation Currently rate controlled (4) Hypertension: Plan: Blood pressure appears to be elevated, suspect this may be secondary to fluid overload Diuresis Lasix as noted Patient is on carvedilol 25 mg twice daily, hydralazine 25mg BID, and lasix as previously noted If not improved, consideration to adding an additional agent (5) CKD (chronic kidney disease), stage III: Plan: BUN 39 with creatinine 1.45, this appears to be her baseline. I will continue to monitor while gentle diuresing. History of Present Illness Chief Complaint: SOB/CORONA Primary Care Provider: Ritu Pacheco MD This is an 81-year-old female with past medical history CAD, paroxysmal atrial fibrillation, previous VTE, COPD that presents today complaining of shortness of breath and CORONA. Patient is a limited historian, countered by daughter. Patient told me that approximately 48 hours prior to her presentation she started with some shortness of breath. On further questioning, this seems to be more dyspnea on exertion as patient became winded with even minimal exertion. This continued to worsen over the course of those 2 days which is why she presented to the emergency room. She also noted some vague chest pressure in the left lower sternal area without radiation. This was nonpleuritic. Was not exertional. Patient did notice a loose cough with some sputum. She does not typically weigh self. She did not notice any lower extremity edema. She also denied any fevers or chills or other infectious symptoms. Shortness of breath continue to worsen which prompted her hospitalization. Of note, she typically does 2 L nasal cannula oxygen. O2 sat here was 98% on 2 L. I did note that her blood pressure was elevated to 180/90, this is consistent on recheck. Allergies Allergy/AdvReac Type Severity Reaction Status Date / Time chlorhexidine Allergy Mild HIVES,RED Verified 05/12/22 13:32 RASH Home Medications Medication Instructions Recorded Confirmed Type ferrous sulfate 325 mg (65 mg 325 mg PO QAM 12/23/18 05/12/22 History iron) tablet cyanocobalamin (vitamin B-12) 1,000 mcg PO QAM 05/02/19 05/12/22 History 1,000 mcg tablet (Vitamin B-12) Oxygen Home #1 ea 05/16/19 05/12/22 Rx docusate sodium 100 mg capsule 100 mg PO DAILY PRN Constipation 06/05/19 05/12/22 History albuterol sulfate 90 mcg/actuation 1 puffs inhalation Q6H PRN 07/31/19 05/12/22 History aerosol inhaler (Ventolin HFA) Shortness Of Breath nystatin 100,000 unit/gram topical 1 applic topical BID PRN . #15 10/22/20 05/12/22 Rx cream grams fluocinolone 0.01 % topical 1 applic topical BID #60 mL 11/18/20 05/12/22 Rx solution simvastatin 40 mg tablet 40 mg PO HS #90 tabs 06/24/21 05/12/22 Rx carvedilol 25 mg tablet 25 mg PO BID #180 tabs 09/29/21 05/12/22 Rx fluticasone furoate 100 1 inh inhalation DAILY 90 days #3 11/16/21 05/12/22 Rx mcg-vilanterol 25 mcg/dose Inhalers inhalation powder (Breo Ellipta) tiotropium bromide 2.5 2 inh inhalation QAM #3 Inhalers 11/16/21 05/12/22 Rx mcg/actuation mist for inhalation (Spiriva Respimat) ergocalciferol (vitamin D2) 1,250 50,000 unit PO MONTHLY #3 caps 12/27/21 05/12/22 Rx mcg (50,000 unit) capsule furosemide 20 mg tablet (Lasix) 20 mg PO QAM #30 tabs 03/25/22 05/12/22 Rx hydralazine 25 mg tablet 25 mg PO BID #180 tabs 04/11/22 05/12/22 Rx allopurinol 100 mg tablet 100 mg PO DAILY #30 tabs 05/10/22 05/12/22 Rx prednisone 10 mg tablet See Rx Instructions PO DAILY 8 05/10/22 05/12/22 Rx days #20 tabs apixaban 2.5 mg tablet 2.5 mg PO BID #180 tabs 05/11/22 05/12/22 Rx Past Med/Surg History Medical History Acute on chronic diastolic (congestive) heart failure Acute upper abdominal pain Anemia Cardiomyopathy Cellulitis CKD (chronic kidney disease) BASELINE CREATININE 1.6-1.8 PER CHART REVIEW COPD (chronic obstructive pulmonary disease) Coronary artery disease NON-OBSRTUCTIVE Cough Dyspnea Edema due to hypoalbuminemia Elevated serum creatinine Fall Hand pain History of abdominal aortic aneurysm (AAA) S/P REPAIR 2016 History of [place] (myocardial infarction) 2016= MEDICALLY MANAGED Hyperlipidemia Hypertension Left wrist pain Lung nodule Mitral regurgitation Multinodular goiter Nasal bleeding Nocturnal hypoxemia 2L AT HS Osteoarthritis Pulmonary embolism RECURRENT (~2012) ON COUMADIN 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 Sacroiliitis Secondary renal hyperparathyroidism Shingles Takotsubo syndrome 2016 URI (upper respiratory infection) Vitamin D deficiency Surgical History AAA (abdominal aortic aneurysm) S/P REPAIR 2016 History of bladder surgery TURBT History of bronchoscopy EBUS, Navigational bronch with biopsy: 02/21/19: Grade 2 view, MAC 3, ETT 8.5 History of lobectomy of lung History of tooth extraction 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) Family History Sister Skin cancer Mother Cancer Other Dyslipidemia Hypertension Malignant neoplasm of bone Denies family history of Colon cancer Ovarian cancer Prostate cancer Kidney disease Myocardial infarction Breast cancer Social History Smoking Status: Smoker, status unknown Cigarettes Per Day: 30; Second Hand Exposure: No; Hx Alcohol Use: No Hx Substance Use: No Preferred Language: Bahraini Communication Ability: Effective Visual Impairment: No Limitations Hearing Ability: Normal Home Office Claims Examiner Required: No Beliefs That Will Affect Care: None marital status: / Current Living Situation: Alone current occupational status: retired Feels Safe at Home: Yes Childhood Exposure to Second-Hand Smoke: Yes Dental Care, Regularly: No Physical Activity Frequency: Does not Exercise Seatbelt Use: always Sunscreen Use: No Assistive Devices: Glasses and Oxygen - at Night Review of Systems Constitutional: no fever, no chills, no weakness, no weight loss and no weight gain Eyes: as per Subjective / HPI Respiratory: + cough, + change in sputum, + dyspnea, + dyspnea on exertion and + sputum production; no chest congestion and no pain with cough Cardiovascular: + chest pain and + dyspnea on exertion; no radiating jaw, neck or arm pain, no orthopnea, no palpitations, no lightheadedness and no edema Gastrointestinal: no abdominal pain, no nausea, no vomiting, no constipation and no diarrhea/loose stools Genitourinary: no dysuria, no difficulty urinating, no urinary frequency, no urinary hesitancy, no urinary urgency and no flank pain Musculoskeletal: no back pain, no neck pain, no joint pain, no stiffness and no myalgia Integumentary: no rash Neurologic: no gait abnormality, no unsteadiness, no falls and no generalized weakness Physical Exam Constitutional: cooperative; no acute distress Neck: trachea midline, no thyromegaly Respiratory: normal respiratory effort Auscultation: + diminished lung sounds and + rhonchi (scattered); no crackles, no rales and no wheezes Cardiovascular: Rate/Rhythm: regular rate and regular rhythm Heart Sounds: normal S1 and normal S2 Extremities: no edema Gastrointestinal (Abdomen): Inspection/Auscultation: abdomen normal to inspection Percussion/Palpation: abdomen soft; abdomen nontender, no guarding, abdomen not rigid and no hepatosplenomegaly Skin: no rashes, warm and dry Results & Data Results & Data ([facility]) Vital Signs (Past 12 Hours) Vital Signs Temp Pulse Pulse Resp BP BP Pulse Ox 05/16/22 16:20 77 19 180/90 H 95 05/16/22 14:28 84 19 182/92 H 94 05/16/22 14:22 94 05/16/22 14:22 05/16/22 14:22 37.1 C 82 18 117/83 88 L O2 Del Method O2 Flow Rate 05/16/22 16:20 Nasal Cannula 2 05/16/22 14:28 Nasal Cannula 2 05/16/22 14:22 Nasal Cannula 2 05/16/22 14:22 Nasal Cannula 2 05/16/22 14:22 Room Air Laboratory Results Laboratory Results WBC 9.56 K/ul (4.8-10.8) 05/16/22 14:50 RBC 3.89 M/uL (3.93-5.22) L 05/16/22 14:50 Hgb 11.4 g/dl (12.0-16.0) L 05/16/22 14:50 Hct 35.1 % (34.1-44.9) 05/16/22 14:50 MCV 90.2 fL (80.0-100.0) 05/16/22 14:50 MCH 29.3 pg (25.0-34.0) 05/16/22 14:50 MCHC 32.5 g/dL (32.0-36.0) 05/16/22 14:50 RDW Std Deviation 47.4 fL (36.4-46.3) H 05/16/22 14:50 RDW Coeff of Mio 14.4 % (11.5-14.5) 05/16/22 14:50 Plt Count 184 K/uL (130-400) 05/16/22 14:50 MPV 9.6 fL (9.4-12.3) 05/16/22 14:50 Immature Gran % (Auto) 0.5 % 05/16/22 14:50 Neut % (Auto) 87.4 % 05/16/22 14:50 Lymph % (Auto) 6.8 % 05/16/22 14:50 [place] % (Auto) 5.1 % 05/16/22 14:50 Eos % (Auto) 0.1 % 05/16/22 14:50 Baso % (Auto) 0.1 % 05/16/22 14:50 Neut # (Auto) 8.35 K/uL (1.4-6.5) H 05/16/22 14:50 Lymph # (Auto) 0.65 K/uL (1.2-3.4) L 05/16/22 14:50 [place] # (Auto) 0.49 K/uL (0.24-0.82) 05/16/22 14:50 Eos # (Auto) 0.01 K/uL (0-0.50) 05/16/22 14:50 Baso # (Auto) 0.01 K/uL (0-0.2) 05/16/22 14:50 Immature Gran # (Auto) 0.05 K/uL (0.00-0.02) H 05/16/22 14:50 Sodium 134 mmol/L (136-145) L 05/16/22 14:50 Potassium 4.0 mmol/L (3.5-5.1) 05/16/22 14:50 Chloride 98 mmol/L (98-107) 05/16/22 14:50 Carbon Dioxide 30 mmol/L (21-32) 05/16/22 14:50 Anion Gap 6 (3-11) 05/16/22 14:50 BUN 39 mg/dl (6-23) H 05/16/22 14:50 Creatinine 1.45 mg/dl (0.6-1.2) H 05/16/22 14:50 Est Cr Clr Drug Dosing 30.2 ml/min 05/16/22 14:50 Est GFR ( Amer) 38.5 ml/min 05/16/22 14:50 Est GFR (Non-Af Amer) 33.2 ml/min 05/16/22 14:50 BUN/Creatinine Ratio 26.9 (10-20) H 05/16/22 14:50 Glucose 138 mg/dl (70-99(Fasting)) H 05/16/22 14:50 Calcium 8.7 mg/dl (8.5-10.1) 05/16/22 14:50 Total Bilirubin 0.8 mg/dl (0.2-1.0) 05/16/22 14:50 AST 10 U/L (13-39) L 05/16/22 14:50 ALT 10 U/L (7-52) 05/16/22 14:50 Alkaline Phosphatase 89 U/L (34-104) 05/16/22 14:50 Troponin I High Sens 30.4 pg/ml (0-14) H 05/16/22 14:50 Total Protein 6.1 gm/dl (6.0-8.3) 05/16/22 14:50 Albumin 3.2 gm/dl (3.4-5.0) L 05/16/22 14:50 Globulin 2.9 gm/dl (2.5-4.0) 05/16/22 14:50 Albumin/Globulin Ratio 1.1 (0.9-2) 05/16/22 14:50 SARS-CoV-2, RNA, NAAT NEGATIVE (NEGATIVE) 05/16/22 Unknown Impressions Chest X-Ray 05/16/22 15:19 XR chest 1V portable CLINICAL HISTORY: Dyspnea TECHNIQUE: Single frontal radiograph of the chest was obtained. Comparison: Comparison is made to chest radiograph 05/31/[address] chest 09/27/2021 FINDINGS: Patient is status post right lower lobectomy. No lines and tubes are seen. Demonstration rightward mediastinal shift. There is right lower lung airspace opacity including an element of atelectasis. A right pleural effusion cannot be excluded. No pneumothorax is seen. IMPRESSION: Airspace opacity and right-sided volume loss, somewhat more pronounced than the prior exam. This likely represent atelectasis with or without superimposed aspiration/pneumonia. ACT 112: Negative or not required by law. Electronically signed by: Ramirez Jade M.D. 05/16/2022 3:49 PM PG Care Time/CCT Total # of Minutes Spent Total Time Spent with Patient: Total time spent is greater than 50% in coordination of care (as documented) at patient's floor/unit and/or counseling patient: Coding Level of Care Code 71629 Initial Inpt Care Lvl 3 Diagnoses CORONA (dyspnea on exertion) R06.09 Elevated troponin R77.8 Paroxysmal atrial fibrillation I48.0 Hypertension I10 Hypertension type: essential hypertension CKD (chronic kidney disease), stage III N18.3 (1) Hypertension Hypertension type: essential hypertension Qualified Code(s): I10 - Essential (primary) hypertension
--- NOTE | 2022-05-16 19:44 | CT Scan Report ---
CT SCAN OF THE CHEST WITHOUT IV CONTRAST CLINICAL HISTORY: Dyspnea. Lung cancer. COMPARISON STUDY: Chest CT scans dated 09/27/2021 and 01/28/2019. TECHNIQUE: CT scan of the thorax was performed from the thoracic inlet to the upper abdomen. Images are reviewed in the axial, sagittal, and coronal planes. IV contrast was not administered for this ex amination as per the referring clinician. A dose lowering technique was utilized adhering to the dayna Han. CT DOSE: 209.04 mGy.cm FINDINGS: Thyroid: The thyroid gland is markedly enlarged and heterogeneous, and extends into the superior medi astinum. This is similar to previous. Thoracic aorta: There is advanced atherosclerotic calcification of the thoracic aorta, which is estephanie l in caliber and demonstrates bovine variant arch anatomy. Heart: The heart is mildly enlarged noting trace pericardial effusion. The coronary arteries are dens paolo calcified. The main pulmonary arteries are dilated suggesting pulmonary artery hypertension. Lungs and pleural spaces: Emphysematous change is noted. There is postoperative change and volume los s consistent with right lower lobe resection with compensatory hyperinflation of the left lung. Trace pleural fluid is again seen at the right lung base. Patchy groundglass consolidation throughout the right lung suggests an infectious/inflammatory pneumonitis. Minimal ground glass consolidation is als o seen at the left lung base. Secretions are noted in the distal trachea and right lower lobe airways . There are scattered calcified granulomas. Foci of parenchyma scarring/atelectasis are noted at the right lung base. Mild diffuse peribronchial thickening is again noted. Foci of pleural-based nodular ity in the right midlung seen previously are obscured by consolidation. Mediastinum: A mildly enlarged pretracheal node is again seen on image #87. This measures up to 12 mm in short axis. No additional enlarged and is dominant lymph nodes are identified. [place]: Not well assessed without IV contrast. Axillae: There is no axillary lymphadenopathy. Upper abdomen: There is a small hiatal hernia. A fat-containing ventral hernia is again seen in the u pper abdomen. Skeletal structures: The skeletal structures are heterogeneously osteopenic. Degenerative change and mild hyperkyphosis are noted in the thoracic spine. No lytic or blastic bony lesions are seen. Chroni c/postoperative change is again seen in the right sided ribs. IMPRESSION: 1. Cardiomegaly and emphysema with postoperative change from right lower lobe resection. 2. There is patchy airspace consolidation throughout the right lung, as well as minimal patchy ground glass consolidation at the left lung base. This is new from previous and typical for pneumonia/aspira tion pneumonitis. Clinical correlation will be required and radiographic follow-up to resolution is r ecommended. 3. A mildly enlarged mediastinal lymph node has modest increased in size from previous, likely on a r eactive basis. Attention at follow-up is recommended. 4. Significant secretions/debris fills the right lower lobe airway. Correlate for aspiration. 5. Mild diffuse peribronchial thickening is again noted and suggests bronchitis/reactive air disease. 6. Thyroid goiter is similar to previous. 7. Additional findings as above. ACT 112: Negative or not required by law. Electronically signed by: Pradeep Avina M.D. 05/16/2022 7:41 PM
[2022-05-16] MEDS ORDERED: ONDANSETRON INJ 2 MG/ML 2 ML VIAL IV PRN (19:59)
[2022-05-16] MEDS ORDERED: ACETAMINOPHEN 325 MG TAB PO PRN (19:59)
[2022-05-16] MEDS: carvediloL 25 MG TAB PO SCH (21:34)
[2022-05-16] MEDS: FUROSEMIDE INJ 20 MG/2 ML VIAL IV SCH (21:34)
[2022-05-16] MEDS: hydrALAZINE HCL 25 MG TAB PO SCH (21:34)
[2022-05-16] MEDS: SIMVASTATIN 40 MG TAB PO SCH (21:35)
[2022-05-16] MEDS ORDERED: ALBUT/IPRATROP 3MG/0.5MG NEB 3 ML VIAL NEB PRN (21:59)
[2022-05-16] MEDS: APIXABAN 2.5 MG TAB PO SCH (22:05)
--- NOTE | 2022-05-17 08:15 | Cardiology Consultation ---
Date of Consultation May 17, 2022 Assessment & Plan (1) CORONA (dyspnea on exertion): Question right lung pneumonia, COPD exacerbation 2. Chronic diastolic heart failure 3. Stable ischemic heart [id number]% distal RCA 11/2015 4. 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 Mild to moderate mitral regurgitation 6. Small pericardial effusionstable from 2018 7. Hypertensionimproved 8. History of AAA post open repair 9. History of right lower lobe lobectomy 03/2019 for SCC, 4 nodules, COPD 10. CKD, hyponatremia Patient admitted with acute shortness of breath. Chest imaging more consistent with pneumonia/aspiration pneumonitis. No signs of congestion on exam today. Do not feel acute symptoms secondary to heart failure. No findings to suggest ACS. Has remained in sinus rhythm since admission. Mild valve disease on repeat echo. Chronic cardiac issues stable. Can transition back to maintenance p.o. Lasix. Blood pressure well controlled on home carvedilol, hydralazine. Continue long- term anticoagulation. History of Present Illness Attending Physician: Jose C Jung MD History of Present Illness Ms. Link is a very pleasant 81-year-old woman known to me from the outpatient setting. Past medical history of takotsubo cardiomyopathy, medically managed RCA CAD, peripheral vascular disease status post open AAA repair 05/[address] Jolly, [id number] mitral regurgitation, chronic kidney disease, COPD and prior pulmonary embolism on chronic anticoagulation, early SCC lung CA post resection, post-op atrial fibrillation. Patient seen by me last week and was doing well. Admitted yesterday after developed acute onset shortness of breath, with cough, rhinorrhea and subjective fevers. On presentation to ED minimally hypoxic, hypertensive to the 180s. Chest x-ray/chest CT showed patchy right lung opacityquestion pneumonia/aspiration pneumonitis. BNP mildly elevated at 260. Troponin borderline but downtrending. ECG showed sinus rhythm with no new dynamic ST changes. Given 20 IV Lasix and started on antibiotics with ceftriaxone/azithromycin. This morning feeling comfortable at rest. Still with ongoing nonproductive cough. Denies any chest pain. Telemetry unremarkable. I/O net positive overnight. Echo todaynormal function, unchanged MR. IVC not well visualized but appears normal Prior cardiovascular studies: Echo 03/2019: Mild LVH, EF 60 to 65%, diastolic dysfunction, mild eccentric MR Cardiac catheterization 12/22/2015: Right radial. Converted to femoral due to calcium and tortuosity. Diffuse aortic and iliac calcification. Mild luminal irregularities in the left system. The RCA is dominant with a distal 80 % stenosis just prior to the crux similar to previously. Allergies Allergy/AdvReac Type Severity Reaction Status Date / Time chlorhexidine Allergy Mild HIVES,RED Verified 05/16/22 19:28 RASH Home Medications Medication Instructions Recorded Confirmed Type ferrous sulfate 325 mg (65 mg 325 mg PO QAM 12/23/18 05/16/22 History iron) tablet cyanocobalamin (vitamin B-12) 1,000 mcg PO QAM 05/02/19 05/16/22 History 1,000 mcg tablet (Vitamin B-12) Oxygen Home #1 ea 05/16/19 05/16/22 Rx docusate sodium 100 mg capsule 100 mg PO DAILY PRN Constipation 06/05/19 05/16/22 History albuterol sulfate 90 mcg/actuation 1 puffs inhalation Q6H PRN 07/31/19 05/16/22 History aerosol inhaler (Ventolin HFA) Shortness Of Breath nystatin 100,000 unit/gram topical 1 applic topical BID PRN . #15 10/22/20 05/16/22 Rx cream grams simvastatin 40 mg tablet 40 mg PO HS #90 tabs 06/24/21 05/16/22 Rx carvedilol 25 mg tablet 25 mg PO BID #180 tabs 09/29/21 05/16/22 Rx fluticasone furoate 100 1 inh inhalation DAILY 90 days #3 11/16/21 05/16/22 Rx mcg-vilanterol 25 mcg/dose Inhalers inhalation powder (Breo Ellipta) ergocalciferol (vitamin D2) 1,250 50,000 unit PO MONTHLY #3 caps 12/27/21 05/16/22 Rx mcg (50,000 unit) capsule furosemide 20 mg tablet (Lasix) 20 mg PO QAM #30 tabs 03/25/22 05/16/22 Rx hydralazine 25 mg tablet 25 mg PO BID #180 tabs 04/11/22 05/16/22 Rx allopurinol 100 mg tablet 100 mg PO DAILY #30 tabs 05/10/22 05/16/22 Rx prednisone 10 mg tablet See Rx Instructions PO DAILY 8 05/10/22 05/16/22 Rx days #20 tabs apixaban 2.5 mg tablet 2.5 mg PO BID #180 tabs 05/11/22 05/16/22 Rx tiotropium bromide 2.5 1 inh inhalation BID 05/16/22 05/16/22 History mcg/actuation mist for inhalation (Spiriva Respimat) Patient History Medical History Acute on chronic diastolic (congestive) heart failure Acute upper abdominal pain Anemia Cardiomyopathy Cellulitis CKD (chronic kidney disease) BASELINE CREATININE 1.6-1.8 PER CHART REVIEW COPD (chronic obstructive pulmonary disease) Coronary artery disease NON-OBSRTUCTIVE Cough Dyspnea Edema due to hypoalbuminemia Elevated serum creatinine Fall Hand pain History of abdominal aortic aneurysm (AAA) S/P REPAIR 2016 History of [place] (myocardial infarction) 2016= MEDICALLY MANAGED Hyperlipidemia Hypertension Left wrist pain Lung nodule Mitral regurgitation Multinodular goiter Nasal bleeding Nocturnal hypoxemia 2L AT HS Osteoarthritis Pulmonary embolism RECURRENT (~2012) ON COUMADIN 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 Sacroiliitis Secondary renal hyperparathyroidism Shingles Takotsubo syndrome 2016 URI (upper respiratory infection) Vitamin D deficiency Surgical History AAA (abdominal aortic aneurysm) S/P REPAIR 2016 History of bladder surgery TURBT History of bronchoscopy EBUS, Navigational bronch with biopsy: 02/21/19: Grade 2 view, MAC 3, ETT 8.5 History of lobectomy of lung History of tooth extraction 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) Family History Sister Skin cancer Mother Cancer Other Dyslipidemia Hypertension Malignant neoplasm of bone Denies family history of Colon cancer Ovarian cancer Prostate cancer Kidney disease Myocardial infarction Breast cancer Social History Smoking Status: Never smoker Cigarettes Per Day: 30; Second Hand Exposure: No; Hx Alcohol Use: No Hx Substance Use: No Preferred Language: [place] Communication Ability: Effective Visual Impairment: No Limitations Hearing Ability: Normal Relay Adjuster Required: No Beliefs That Will Affect Care: None marital status: / Current Living Situation: Alone current occupational status: retired Other Information That Helps Us Care for You: No Feels Safe at Home: Yes Safety Concerns: Feels Safe At This Time Childhood Exposure to Second-Hand Smoke: Yes Dental Care, Regularly: No Physical Activity Frequency: Does not Exercise Seatbelt Use: always Sunscreen Use: No Assistive Devices: Denture - Upper, Glasses, Oxygen - Continuous and Walker Review of Systems Review of Systems: All systems reviewed & are unremarkable except as noted in HPI & below Physical Exam Physical Exam: General: Comfortable HEENT: Sclerae anicteric, Mask in place Lungs: Decreased breath sounds at right base with few rhonchi, lungs clear on the left. Upper airway wheezing Cardiac: Regular rate and rhythm, 2 of 6 systolic murmur heard best at right sternal border. No JVD Vascular: 2+ radial. No bruits Abdomen: Soft, nontender Extremities: Well perfused, no peripheral edema Neuro: Nonfocal Psych: Alert orient x3, normal affect and mood Results & Data ([facility]) Vital Signs (Past 12 Hours) Vital Signs Temp Pulse Pulse Pulse Resp BP Pulse Ox 05/17/22 08:00 98.8 F 69 20 112/67 94 05/17/22 02:44 98.2 F 66 18 102/65 95 05/17/22 01:00 72 05/16/22 22:17 97.7 F 74 18 109/69 96 05/16/22 23:02 77 16 98 O2 Del Method O2 Flow Rate 05/17/22 08:00 Nasal Cannula 2 05/17/22 02:44 Nasal Cannula 2 05/17/22 01:00 05/16/22 22:17 Nasal Cannula 2 05/16/22 23:02 Nasal Cannula 2 PG Care Time/CCT Total # of Minutes Spent Total Time Spent with Patient: Total time spent is greater than 50% in coordination of care (as documented) at patient's floor/unit and/or counseling patient: Coding Level of Care Code 06280 Initial Inpt Care Lvl 3 Diagnoses CORONA (dyspnea on exertion) R06.09
[2022-05-17] MEDS: allopurinoL 100 MG TAB PO SCH (08:27)
[2022-05-17] MEDS: FUROSEMIDE INJ 20 MG/2 ML VIAL IV SCH ×2 (08:27→20:50)
[2022-05-17] MEDS: APIXABAN 2.5 MG TAB PO SCH ×2 (08:29→20:50)
[2022-05-17] MEDS: carvediloL 25 MG TAB PO SCH ×2 (08:29→20:50)
[2022-05-17] MEDS: hydrALAZINE HCL 25 MG TAB PO SCH ×2 (08:29→20:50)
[2022-05-17] MEDS: UMECLIDINIUM BROMIDE 62.5MCG/BLISTER 7 PUFFS/INHALER INH SCH (08:30)
[2022-05-17] MEDS: FLUTICASONE/VILANTEROL 100/25MCG 14 PUFFS/INHALER INH SCH (08:30)
--- NOTE | 2022-05-17 08:40 | Hospitalist Progress Note ---
Date of Service May 17, 2022 Assessment & Plan (1) CORONA (dyspnea on exertion): Plan: CT squamous cell carcinoma lung, with resection but concern for pneumonia/pneumonitis -> Rocephin and Zithromax to treat CAP cough with eating have speech eval for aspiration risk asssement h/o HFpEF Lasix 20 mg IV every 12 hours. Patient is typically on 20 mg p.o. daily 2D echo preserved EF, small pericardial effusion without tamponade typically sees Dr Zuniga in Cardiology, he did evaluate and feels is demand ischemia (2) Elevated troponin: Plan: demand ischemia high sens troponin is trending down Already anticoagulated with Xarelto, will continue (3) Paroxysmal atrial fibrillation: Plan: Xarelto for anticoagulation Currently rate controlled (4) Hypertension: Plan: possible hypertensive urgency Diuresis Lasix as noted Patient is on carvedilol 25 mg twice daily, hydralazine 25mg BID, and lasix as previously noted (5) CKD (chronic kidney disease), stage III: Plan: BUN 39 with creatinine 1.45, this appears to be her baseline. continue to monitor while gentle diuresing. Admission and Anticipated Discharge Date Admission Date: May 16, 2022 Subjective pt eating lunch family at bedside cough wiht eating, pt states does not usually note this, however cough worr isome for swallowing issue Review of Systems Review of Systems: Mild distress and moderate fatigue no headache, no visual changes no speech or swallowing issues no chest pain, pressure or palpitations no shortness of breath, loose cough no abdominal pain, nausea or vomiting, diarrhea or constipation no dysuria, hematuria or frequency no focal joint pain or swelling no back pain, CVA tenderness or radicular pain no bruising, bleeding or rashes no focal signs of weakness or numbness or altered sensation no complaints of anxiety or depression.. Physical Exam Physical Exam: The patient appeared well nourished and normally developed. Vital signs as documented. Head exam is normocephalic atraumatic Neck is without JVD, thyromegaly, or carotid bruits. Lungs are diminished at the bases left > right some rales Cardiac exam, Rhythm is regular.. No murmurs, rubs or gallops. Abdominal exam reveals normal bowel sounds, soft non tender, no masses Extremities are nonedematous and both pedal pulses are present Neurologic exam is alert and oriented, no focal loss of strength or sensation Skin is without bruises or rashes Psychologically is without concerns for anxiety or depression.. Results & Data Results & Data ([facility]) Vital Signs (Past 12 Hours) Vital Signs Temp Pulse Pulse Pulse Resp BP Pulse Ox 05/17/22 08:00 98.8 F 69 20 112/67 94 05/17/22 02:44 98.2 F 66 18 102/65 95 05/17/22 01:00 72 05/16/22 22:17 97.7 F 74 18 109/69 96 05/16/22 23:02 77 16 98 O2 Del Method O2 Flow Rate 05/17/22 08:00 Nasal Cannula 2 05/17/22 02:44 Nasal Cannula 2 05/17/22 01:00 05/16/22 22:17 Nasal Cannula 2 05/16/22 23:02 Nasal Cannula 2 PG Care Time/CCT Total # of Minutes Spent Total Time Spent with Patient: Total time spent is greater than 50% in coordination of care (as documented) at patient's floor/unit and/or counseling patient: Coding Level of Care Code 88670 Subseq Hosp Care Lvl 3 Diagnoses CORONA (dyspnea on exertion) R06.09 Elevated troponin R77.8 Paroxysmal atrial fibrillation I48.0 Hypertension I10 Hypertension type: essential hypertension CKD (chronic kidney disease), stage III N18.3 (1) Hypertension Hypertension type: essential hypertension Qualified Code(s): I10 - Essential (primary) hypertension
--- NOTE | 2022-05-17 12:05 | XCELERA ---
[id number]
[2022-05-17] MEDS: cefTRIAXone SODIUM 1,000 MG in DEXTROSE 5% 50 ML IV SCH (16:44)
--- NOTE | 2022-05-17 17:00 | Electrocardiogram Report ---
Test Reason : Blood Pressure : / mmHG Vent. Rate : 085 BPM Atrial Rate : 085 BPM P-R Int : 164 ms QRS Dur : 074 ms QT Int : 372 ms P-R-T Axes : 049 044 071 degrees QTc Int : 442 ms Normal sinus rhythm Septal infarct , age undetermined Abnormal ECG When compared with ECG of 17-JUL-2020 12:00, Septal infarct is now Present Confirmed by Waldo Rivera ([id number]) on 05/17/2022 4:59:50 PM Referred By: REFERRED SELF Confirmed By:Waldo Rivera
[2022-05-17] MEDS ORDERED: AZITHROMYCIN 500 MG in DEXTROSE 5% 250 ML IV SCH (18:00)
[2022-05-17 19:32] LABS: A calco-baum cmplx NotReported Not Detected (NotDetected); Bact fragilis Not Reported Not Detected (NotDetected); C auris Not Reported Not Detected (NotDetected); Calbicans Not Reported Not Detected (NotDetected); Candida glabrata Not Reported Not Detected (NotDetected); Candida krusei Not Reported Not Detected (NotDetected); Cneoformans/gatti Not Reported Not Detected (NotDetected); Cparapsilosis Not Reported Not Detected (NotDetected); Ctropicalis Not Reported Not Detected (NotDetected); E cloacae compx Not Reported Not Detected (NotDetected); Efaecalis Not Reported Not Detected (NotDetected); Efaecium Not Reported Not Detected (NotDetected); Enterobacterales Not Reported Not Detected (NotDetected); Escherichia coli Not Reported Not Detected (NotDetected); H influenzae Not Reported Not Detected (NotDetected); K aerogenes Not Reported Not Detected (NotDetected); Koxytoca Not Reported Not Detected (NotDetected); Kpneumoniae grp Not Reported Not Detected (NotDetected); Lmonocyt Not Reported Not Detected (NotDetected); N meningitidis Not Reported Not Detected (NotDetected); P aeruginosa Not Reported Not Detected (NotDetected); Proteus spp Not Reported Not Detected (NotDetected); Salmonella spp Not Reported Not Detected (NotDetected); Smarcescens Not Reported Not Detected (NotDetected); Staph lugdunensis Not Reported Not Detected (NotDetected); Staphaureus Not Reported Not Detected (NotDetected); Stenmaltophilia Not Reported Not Detected (NotDetected); Strep agal(GrpB) Not Reported Not Detected (NotDetected); Strep pneum Not Reported Not Detected (NotDetected); Strep pyog (GrpA) Not Reported Not Detected (NotDetected); Strep spp Not Reported Not Detected (NotDetected); mecAC Resistant Gene Not Detected (NotDetected)
[2022-05-17 19:42] LABS: Staph spp. Not Reported DETECTED (NotDetected); Staphepi Not Reported DETECTED (NotDetected); Staphylococcus epidermidis DETECTED (NotDetected); Staphylococcus spp. DETECTED (NotDetected)
[2022-05-17] MEDS: SIMVASTATIN 40 MG TAB PO SCH (20:50)
[2022-05-18] MEDS: UMECLIDINIUM BROMIDE 62.5MCG/BLISTER 7 PUFFS/INHALER INH SCH (08:20)
[2022-05-18] MEDS: carvediloL 25 MG TAB PO SCH ×2 (08:20→20:51)
[2022-05-18] MEDS: FUROSEMIDE INJ 20 MG/2 ML VIAL IV SCH (08:20)
[2022-05-18] MEDS: hydrALAZINE HCL 25 MG TAB PO SCH ×2 (08:20→20:50)
[2022-05-18] MEDS: FLUTICASONE/VILANTEROL 100/25MCG 14 PUFFS/INHALER INH SCH (08:20)
[2022-05-18] MEDS: APIXABAN 2.5 MG TAB PO SCH ×2 (08:20→20:52)
[2022-05-18] MEDS: allopurinoL 100 MG TAB PO SCH (08:20)
[2022-05-18 09:01] LABS: BUN Creatinine Ratio 30.9 (10-20); Calcium 8.5 mg/dl (8.5-10.1); Creatinine Clr Calc Pharmacy 22.4 ml/min; Est GFR (Non-African American) 25.9 ml/min; Magnesium 2.1 mg/dl (1.7-2.4); Potassium 3.9 mmol/L (3.5-5.1)
[2022-05-18] MEDS: AZITHROMYCIN 250 MG TAB PO SCH (09:24)
--- NOTE | 2022-05-18 14:43 | Hospitalist Progress Note ---
Date of Service May 18, 2022 Assessment & Plan (1) Right lower lobe pneumonia: Plan: day #3 of IV abx therapy - rocephin/zithromax. can change zithromax to PO, and complete 3 more days of such. has concomitant COPD exacerbation - see below. + blood culture likely contamination. cont supportive care, mucolytics, pulmonary toilet, NC O2, etc. appreciate speech therapy consultation -- no obvious aspiration at this time. (2) COPD exacerbation: Plan: ongoing. add IV solumedrol 40mg IV BID. add scheduled duonebs QID. add incentive spirometry. cont flutter valve. add mucinex 1200mg BID. follow sputum cx to final. if she has refractory symptoms and difficulty with pulmonary toilet consider vibration vest. cont home inhalers. (3) Acute on chronic diastolic (congestive) heart failure: Plan: appears resolved. creatinine trending up. stop IV lasix. BMP am. appreciate cardiology consultation. echo findings noted. (4) Elevated troponin: Plan: 2nd to myocardial demand ischemia. no ACS suspected. appreciate cardiology consultation. (5) History of pulmonary embolism: Plan: noted. cont Eliquis. (6) Paroxysmal atrial fibrillation: Plan: brief run of PAT this am (no symptoms), but no a.fib. cont to monitor. cont coreg BID. (7) Squamous cell lung cancer: Plan: history of - Right lower lobe - s/p RLL lobectomy. (8) Hyperlipidemia: Plan: cont statin therapy. (9) Hypertension: Plan: cont coreg. cont hydralazine. (10) CKD (chronic kidney disease), stage III: Plan: stage 3b Cr mildly elevated above baseline today - likely from diuretics stop IV lasix BMP am (11) Coronary artery disease: Plan: no ischemic symptoms at this time. cont BB cont statin (12) Positive blood culture: Plan: 1 from admission -- likely contaminant. coag neg staph. no Rx needed. (13) DVT prophylaxis: Plan: eliquis BID Plan daughter updated at bedside cont PT, OT Admission and Anticipated Discharge Date Admission Date: May 16, 2022 Subjective patient continues with cough, somewhat productive denies dyspnea at rest some mild CORONA she feels "50 to 75% of her normal" no chest pain or chest tightness has noted some wheezing appetite fair daughter at bedside during the visit daughter wants to know how her mother is walking and her strength level tele overnight - brief run of PAT at 0800 this morning pt reports she uses NC O2 at night-time, and prn during the day at home Review of Systems Review of Systems: gen - no fevers or chills cv - no orthopnea pulm - cough, congestion, dyspnea on exertion, sputum production GI - no nausea or emesis Physical Exam Physical Exam: gen - severe bronchial cough throughout the visit, NAD otherwise, pleasant mouth - MMM, no thrush neck - no JVD heart - RRR, s1 s2, no murmur lungs - poor airation bases, anterior wheezes, occasional crackle; no increased work of breathing abd - soft NT ND BS+ ext - no edema, pulses 2+ b/l psych - a/o x 3 Results & Data Results & Data ([facility]) Vital Signs (Past 12 Hours) Vital Signs Temp Pulse Pulse Resp BP Pulse Ox O2 Del Method 05/18/22 10:50 36.9 C 68 18 126/68 96 Nasal Cannula 05/18/22 11:15 Nasal Cannula 05/18/22 11:14 69 05/18/22 07:48 36.9 C 72 18 130/70 95 Nasal Cannula 05/18/22 05:00 Nasal Cannula O2 Flow Rate 05/18/22 10:50 1.5 05/18/22 11:15 2 05/18/22 11:14 05/18/22 07:48 1.5 05/18/22 05:00 2 Laboratory Results Laboratory Results - last 24 hr 05/16/22 05/17/22 05/17/22 17:30 16:57 20:45 Sodium Potassium Chloride Carbon Dioxide Anion Gap BUN Creatinine Est Cr Clr Drug Dosing Est GFR ( Amer) Est GFR (Non-Af Amer) BUN/Creatinine Ratio Glucose POC Glucose 133 H Calcium Magnesium Nasal Screen MRSA (PCR) Negative Staphylococcus sp PCR DETECTED A mecA/C-Methicil Resis Gene Not Detected Staph epidermidis (PCR) DETECTED A Bld Cult ID Panel PCR See PCR Comment 05/18/22 05/18/22 05/18/22 08:02 08:06 11:51 Sodium 138 Potassium 3.9 Chloride 99 Carbon Dioxide 31 Anion Gap 8 BUN 55 H Creatinine 1.78 H D Est Cr Clr Drug Dosing 22.4 Est GFR ( Amer) 30.0 Est GFR (Non-Af Amer) 25.9 BUN/Creatinine Ratio 30.9 H Glucose 101 H POC Glucose 103 H 119 H Calcium 8.5 Magnesium 2.1 Nasal Screen MRSA (PCR) Staphylococcus sp PCR mecA/C-Methicil Resis Gene Staph epidermidis (PCR) Bld Cult ID Panel PCR PG Care Time/CCT Total # of Minutes Spent Total Time Spent with Patient: Total time spent is greater than 50% in coordination of care (as documented) at patient's floor/unit and/or counseling patient: Coding Level of Care Code 50231 Subseq Hosp Care Lvl 3 Diagnoses Right lower lobe pneumonia J18.9 COPD exacerbation J44.1 Acute on chronic diastolic (congestive) heart failure I50.33 Elevated troponin R77.8 History of pulmonary embolism Z86.711 Paroxysmal atrial fibrillation I48.0 Squamous cell lung cancer C34.91 Laterality: right Hyperlipidemia E78.5 Hyperlipidemia type: unspecified Hypertension I10 Hypertension type: essential hypertension CKD (chronic kidney disease), stage III N18.3 Coronary artery disease I25.10 Coronary Disease-Associated Artery/Lesion type: [place] artery [place] vs. transplanted heart: [place] heart Associated angina: without angina Positive blood culture R78.81 DVT prophylaxis Z29.9 (1) Squamous cell lung cancer Laterality: right Qualified Code(s): C34.91 - Malignant neoplasm of unspecified part of right bronchus or lung (2) Hyperlipidemia Hyperlipidemia type: unspecified Qualified Code(s): E78.5 - Hyperlipidemia, unspecified (3) Hypertension Hypertension type: essential hypertension Qualified Code(s): I10 - Essential (primary) hypertension (4) Coronary artery disease Coronary Disease-Associated Artery/Lesion type: [place] artery [place] vs. tr ansplanted heart: [place] heart Associated angina: without angina Qualified Code(s): I25.10 - Atherosclerotic heart disease of [place] coronary artery without angina pectoris
[2022-05-18] MEDS: ALBUT/IPRATROP 3MG/0.5MG NEB 3 ML VIAL NEB SCH ×2 (15:00→19:40)
[2022-05-18] MEDS: methylPREDNISolone 40 MG in SYRINGE 0 ML IV SCH (16:08)
[2022-05-18] MEDS: guaiFENesin 600 MG TABCR PO SCH ×2 (16:08→20:50)
[2022-05-18] MEDS: cefTRIAXone SODIUM 1,000 MG in DEXTROSE 5% 50 ML IV SCH (17:29)
[2022-05-18] MEDS: SIMVASTATIN 40 MG TAB PO SCH (20:49)
[2022-05-19] MEDS: methylPREDNISolone 40 MG in SYRINGE 0 ML IV SCH ×2 (02:28→15:36)
[2022-05-19 06:42] LABS: Hematocrit (blood only) 33.3 % (34.1-44.9); Hemoglobin 10.9 g/dl (12.0-16.0); Mean Corpuscular Hemoglobin 29.2 pg (25.0-34.0); Mean Corpuscular Hgb Conc 32.7 g/dL (32.0-36.0); Mean Corpuscular Volume 89.3 fL (80.0-100.0); Mean Platelet Volume 9.8 fL (9.4-12.3); Platelet Count 210 K/uL (130-400); RDW Coefficient of Variation 13.9 % (11.5-14.5); RDW Standard Deviation 45.4 fL (36.4-46.3); Red Blood Count 3.73 M/uL (3.93-5.22); White Blood Count 4.37 K/ul (4.8-10.8)
[2022-05-19] MEDS: ALBUT/IPRATROP 3MG/0.5MG NEB 3 ML VIAL NEB SCH ×4 (07:07→19:57)
[2022-05-19 07:10] LABS: BUN Creatinine Ratio 39.6 (10-20); Calcium 8.7 mg/dl (8.5-10.1); Creatinine Clr Calc Pharmacy 23.6 ml/min; Est GFR (Non-African American) 27.6 ml/min; Potassium 4.3 mmol/L (3.5-5.1)
[2022-05-19] MEDS: hydrALAZINE HCL 25 MG TAB PO SCH ×2 (09:09→21:50)
[2022-05-19] MEDS: guaiFENesin 600 MG TABCR PO SCH ×2 (09:10→21:50)
[2022-05-19] MEDS: carvediloL 25 MG TAB PO SCH ×2 (09:10→21:51)
[2022-05-19] MEDS: allopurinoL 100 MG TAB PO SCH (09:10)
[2022-05-19] MEDS: AZITHROMYCIN 250 MG TAB PO SCH (09:10)
[2022-05-19] MEDS: UMECLIDINIUM BROMIDE 62.5MCG/BLISTER 7 PUFFS/INHALER INH SCH (09:14)
[2022-05-19] MEDS: FLUTICASONE/VILANTEROL 100/25MCG 14 PUFFS/INHALER INH SCH (09:14)
[2022-05-19] MEDS: APIXABAN 2.5 MG TAB PO SCH ×2 (09:41→21:51)
[2022-05-19] MEDS: cefTRIAXone SODIUM 1,000 MG in DEXTROSE 5% 50 ML IV SCH (17:18)
--- NOTE | 2022-05-19 20:25 | Hospitalist Progress Note ---
Date of Service May 19, 2022 Assessment & Plan (1) Right lower lobe pneumonia: Plan: day #4 of IV abx therapy - rocephin/zithromax. clinically improving. has concomitant COPD exacerbation - see below. + blood culture likely contamination. cont supportive care, mucolytics, pulmonary toilet, NC O2, etc. adding vibration vest BID. appreciate speech therapy consultation -- no obvious aspiration at this time. (2) COPD exacerbation: Plan: ongoing but improved today. cont IV solumedrol 40mg BID - no wean today, but likely can wean tomorrow. cont scheduled duonebs QID. cont incentive spirometry. cont flutter valve. cont mucinex 1200mg BID. add vibration vest BID to help with mucous. consider NaCl nebs BID as well. sputum cx negative to date. cont home inhalers. (3) Acute on chronic diastolic (congestive) heart failure: Plan: resolved. diuretics stopped. BMP acceptable today. appreciate cardiology consultation. echo findings noted. (4) Elevated troponin: Plan: 2nd to myocardial demand ischemia. no ACS suspected. appreciate cardiology consultation. (5) History of pulmonary embolism: Plan: noted. cont Eliquis. (6) Paroxysmal atrial fibrillation: Plan: brief run of PAT yesterday am (no symptoms), but no a.fib. cont to monitor. cont coreg BID. (7) Squamous cell lung cancer: Plan: history of - Right lower lobe - s/p RLL lobectomy. decreased BS in the right base likely combination of prior lobectomy & her current pneumonia. (8) Hyperlipidemia: Plan: cont statin therapy. (9) Hypertension: Plan: cont coreg. cont hydralazine. (10) CKD (chronic kidney disease), stage III: Plan: stage 3b BMP am (11) Coronary artery disease: Plan: no ischemic symptoms at this time. cont BB cont statin (12) Positive blood culture: Plan: 11/02 from admission -- likely contaminant. coag neg staph. no Rx needed. (13) DVT prophylaxis: Plan: eliquis BID (14) Hyperglycemia: Plan: no formal dx of DM but BSGs are high in setting of her illness & steroids. cont BSGs ac/hs. add novolog SSI. check a1c in am. diet - DM diet. Plan left voicemail message for daughter this evening updated daughter at bedside on 05/18/22 cont PT, OT but doing very well w/ mobility progressing Admission and Anticipated Discharge Date Admission Date: May 16, 2022 Subjective tele stable overnight pt feels pretty good took a long walk with staff this afternoon - walked 4-5 laps around unit -- NO DYSPNEA with exertion main complaint is cough - dry mostly - feels there is mucous in the lungs but can't get it up denies chest pressure or tightness appetite is good no diarrhea Review of Systems Review of Systems: gen - no fevers cv - no chest symptoms pulm - no dyspnea; wheezing improved GI - no abd pain or nausea or emesis Physical Exam Physical Exam: gen - ongoing bronchial cough throughout the visit, NAD mouth - MMM, no thrush neck - no JVD heart - RRR, s1 s2, no murmur lungs - decreased BS right base only; airation much improved today both anteriorly & posteriorly; anterior chest wheezes heard yesterday resolved; no crackles; no increased work of breathing abd - soft NT ND BS+ ext - no edema, pulses 2+ b/l psych - a/o x 3 Results & Data Results & Data ([facility]) Vital Signs (Past 12 Hours) Vital Signs Temp Pulse Pulse Pulse Resp BP BP 05/19/22 19:46 36.7 C 97 H 18 148/78 H 05/19/22 16:00 36.5 C 67 18 127/81 05/19/22 16:01 05/19/22 15:46 80 05/19/22 15:44 78 20 05/19/22 10:35 36.4 C L 76 18 150/70 H 05/19/22 10:54 05/19/22 10:42 83 18 05/19/22 10:00 76 Pulse Ox O2 Del Method O2 Flow Rate 05/19/22 19:46 97 Nasal Cannula 2 05/19/22 16:00 97 Nasal Cannula 2 05/19/22 16:01 Nasal Cannula 2 05/19/22 15:46 05/19/22 15:44 97 Nasal Cannula 2 05/19/22 10:35 97 Nasal Cannula 2 05/19/22 10:54 97 05/19/22 10:42 96 Nasal Cannula 2 05/19/22 10:00 Laboratory Results Laboratory Results - last 24 hr 05/18/22 05/19/22 05/19/22 20:48 02:22 06:19 WBC 4.37 L RBC 3.73 L Hgb 10.9 L Hct 33.3 L MCV 89.3 MCH 29.2 MCHC 32.7 RDW Std Deviation 45.4 RDW Coeff of [place] 13.9 Plt Count 210 MPV 9.8 Sodium Potassium Chloride Carbon Dioxide Anion Gap BUN Creatinine Est Cr Clr Drug Dosing Est GFR ( Amer) Est GFR (Non-Af Amer) BUN/Creatinine Ratio Glucose POC Glucose 173 H 177 H Calcium 05/19/22 05/19/22 05/19/22 06:19 07:54 11:55 WBC RBC Hgb Hct MCV MCH MCHC RDW Std Deviation RDW Coeff of [place] Plt Count MPV Sodium 135 L Potassium 4.3 Chloride 98 Carbon Dioxide 29 Anion Gap 8 BUN 67 H Creatinine 1.69 H Est Cr Clr Drug Dosing 23.6 Est GFR ( Amer) 32.0 Est GFR (Non-Af Amer) 27.6 BUN/Creatinine Ratio 39.6 H Glucose 156 H POC Glucose 144 H 194 H Calcium 8.7 05/19/22 05/19/22 16:53 20:14 WBC RBC Hgb Hct MCV MCH MCHC RDW Std Deviation RDW Coeff of [place] Plt Count MPV Sodium Potassium Chloride Carbon Dioxide Anion Gap BUN Creatinine Est Cr Clr Drug Dosing Est GFR ( Amer) Est GFR (Non-Af Amer) BUN/Creatinine Ratio Glucose POC Glucose 209 H 185 H Calcium PG Care Time/CCT Total # of Minutes Spent Total Time Spent with Patient: Total time spent is greater than 50% in coordination of care (as documented) at patient's floor/unit and/or counseling patient: Coding Level of Care Code 11013 Subseq Hosp Care Lvl 2 Diagnoses Right lower lobe pneumonia J18.9 COPD exacerbation J44.1 Acute on chronic diastolic (congestive) heart failure I50.33 Elevated troponin R77.8 History of pulmonary embolism Z86.711 Paroxysmal atrial fibrillation I48.0 Squamous cell lung cancer C34.91 Laterality: right Hyperlipidemia E78.5 Hyperlipidemia type: unspecified Hypertension I10 Hypertension type: essential hypertension CKD (chronic kidney disease), stage III N18.3 Coronary artery disease I25.10 Associated angina: without angina Coronary Disease-Associated Artery/Lesion type: [place] artery [place] vs. transplanted heart: [place] heart Positive blood culture R78.81 DVT prophylaxis Z29.9 Hyperglycemia R73.9 (1) Coronary artery disease Associated angina: without angina Coronary Disease-Associated Artery/Lesion type: [place] artery [place] vs. transplanted heart: [place] heart Qualified C ode(s): I25.10 - Atherosclerotic heart disease of [place] coronary artery without angina pectoris (2) Hyperlipidemia Hyperlipidemia type: unspecified Qualified Code(s): E78.5 - Hyperlipidemia, unspecified (3) Squamous cell lung cancer Laterality: right Qualified Code(s): C34.91 - Malignant neoplasm of unspecified part of right bronchus or lung (4) Hypertension Hypertension type: essential hypertension Qualified Code(s): I10 - Essential (primary) hypertension
[2022-05-19] MEDS: SIMVASTATIN 40 MG TAB PO SCH (21:49)
[2022-05-19] MEDS: INSULIN ASPART PER UNIT SC SCH (21:51)
[2022-05-20] MEDS: methylPREDNISolone 40 MG in SYRINGE 0 ML IV SCH ×2 (02:46→16:33)
[2022-05-20 07:17] LABS: Estimated Average Glucose 111 mg/dl; Hemoglobin A1C 5.5 % (4.5-5.6)
[2022-05-20] MEDS: ALBUT/IPRATROP 3MG/0.5MG NEB 3 ML VIAL NEB SCH ×4 (07:18→19:23)
[2022-05-20 07:33] LABS: BUN Creatinine Ratio 44.9 (10-20); Calcium 8.9 mg/dl (8.5-10.1); Creatinine Clr Calc Pharmacy 22.4 ml/min; Est GFR (Non-African American) 25.9 ml/min; Potassium 4.5 mmol/L (3.5-5.1)
[2022-05-20] MEDS: INSULIN ASPART PER UNIT SC SCH ×4 (07:50→20:20)
[2022-05-20] MEDS: APIXABAN 2.5 MG TAB PO SCH ×2 (08:16→20:15)
[2022-05-20] MEDS: allopurinoL 100 MG TAB PO SCH (08:16)
[2022-05-20] MEDS: guaiFENesin 600 MG TABCR PO SCH ×2 (08:16→20:17)
[2022-05-20] MEDS: carvediloL 25 MG TAB PO SCH ×2 (08:16→20:17)
[2022-05-20] MEDS: FLUTICASONE/VILANTEROL 100/25MCG 14 PUFFS/INHALER INH SCH (08:16)
[2022-05-20] MEDS: AZITHROMYCIN 250 MG TAB PO SCH (08:16)
[2022-05-20] MEDS: UMECLIDINIUM BROMIDE 62.5MCG/BLISTER 7 PUFFS/INHALER INH SCH (08:16)
[2022-05-20] MEDS: hydrALAZINE HCL 25 MG TAB PO SCH ×2 (08:16→20:16)
[2022-05-20] MEDS: cefTRIAXone SODIUM 1,000 MG in DEXTROSE 5% 50 ML IV SCH (16:33)
[2022-05-20] MEDS: BENZONATATE 100 MG CAPSULE PO SCH ×2 (18:11→20:19)
[2022-05-20] MEDS: SIMVASTATIN 40 MG TAB PO SCH (20:17)
--- NOTE | 2022-05-20 21:11 | Hospitalist Progress Note ---
Date of Service May 20, 2022 Assessment & Plan (1) Right lower lobe pneumonia: Plan: day #5 of IV abx therapy - rocephin/zithromax. clinically improving. can d/c rocephin after today's dose - then give cefdinir x 2 days. finished 5-day course zithromax. has concomitant COPD exacerbation - see below. + blood culture likely contamination. cont supportive care, mucolytics, pulmonary toilet, NC O2, etc. cont vibration vest BID but stop tomorrow if she still feels it isn't helping. appreciate speech therapy consultation -- no obvious aspiration at this time. (2) COPD exacerbation: Plan: IMPROVED. cont IV solumedrol but lower dosing to 30mg BID. cont scheduled duonebs QID. cont incentive spirometry. cont flutter valve. cont mucinex 1200mg BID. cont vibration vest BID but stop tomorrow if not helping. consider NaCl nebs BID, sputum cx negative. cont home inhalers. (3) Acute on chronic diastolic (congestive) heart failure: Plan: resolved. diuretics stopped. BMP acceptable today. appreciate cardiology consultation. echo findings noted. (4) Elevated troponin: Plan: 2nd to myocardial demand ischemia. no ACS suspected. appreciate cardiology consultation. (5) History of pulmonary embolism: Plan: noted. cont Eliquis. (6) Paroxysmal atrial fibrillation: Plan: brief run of PAT earlier this week but no PAF seen on tele. cont to monitor. cont coreg BID. (7) Squamous cell lung cancer: Plan: history of - Right lower lobe - s/p RLL lobectomy. decreased BS in the right base likely combination of prior lobectomy & her current pneumonia. (8) Hyperlipidemia: Plan: cont statin therapy. (9) Hypertension: Plan: cont coreg. cont hydralazine. (10) CKD (chronic kidney disease), stage III: Plan: stage 3b with mild KANU - likely overdiuresis BMP am (11) Coronary artery disease: Plan: no ischemic symptoms at this time. cont BB cont statin (12) Positive blood culture: Plan: 1/ from admission -- likely contaminant. coag neg staph. no Rx needed. (13) DVT prophylaxis: Plan: eliquis BID (14) Hyperglycemia: Plan: no formal dx of DM but BSGs are high in setting of her illness & steroids. cont BSGs ac/hs. cont novolog SSI. Hba1c 5.5% diet - DM diet. (15) KANU (acute kidney injury): Plan: 2nd over-diuresis? repeat BMP am consider small amount of IV fluids Plan hopefully home this weekend progressing nicely Admission and Anticipated Discharge Date Admission Date: May 16, 2022 Subjective patient feels that the vibration vest isn't helping with cough/breathing/sputum production she does, however, overall feel much better than admission walked the hallways today and had NO dyspnea with exertion cough continues - that is biggest complaint good appetite no new complaints tele wnl Review of Systems Review of Systems: gen - no fevers or chills; good energy cv - no orthopnea, no PND, no cp pulm - no wheezing GI - no pain Physical Exam Physical Exam: gen - ongoing bronchial cough throughout the visit, NAD, but looks good overall mouth - MMM, no thrush neck - no JVD heart - RRR, s1 s2, no murmur lungs - decreased BS right base only; airation wnl otherwise; no wheezes; no crackles; no increased work of breathing abd - soft NT ND BS+ ext - no edema, pulses 2+ b/l psych - a/o x 3 Results & Data Results & Data ([facility]) Vital Signs (Past 12 Hours) Vital Signs Temp Pulse Pulse Pulse Resp BP Pulse Ox 05/20/22 19:40 36.6 C 70 18 168/68 H 93 05/20/22 19:25 82 18 93 05/20/22 18:12 93 05/20/22 18:12 95 05/20/22 15:49 36.4 C L 80 20 161/65 H 2 L 05/20/22 15:46 65 05/20/22 14:19 64 18 98 05/20/22 11:13 05/20/22 10:42 74 16 96 05/20/22 10:33 36.3 C L 60 18 158/72 H 98 05/20/22 09:20 61 O2 Del Method O2 Flow Rate 05/20/22 19:40 Room Air 05/20/22 19:25 Room Air 05/20/22 18:12 Room Air 05/20/22 18:12 Room Air 05/20/22 15:49 Nasal Cannula 05/20/22 15:46 05/20/22 14:19 Nasal Cannula 2 05/20/22 11:13 Nasal Cannula 2 05/20/22 10:42 Nasal Cannula 2 05/20/22 10:33 Nasal Cannula 2 05/20/22 09:20 Laboratory Results Laboratory Results - last 24 hr 05/20/22 05/20/22 05/20/22 06:28 06:32 07:48 Sodium 136 Potassium 4.5 Chloride 101 Carbon Dioxide 29 Anion Gap 6 BUN 80 H Creatinine 1.78 H Est Cr Clr Drug Dosing 22.4 Est GFR ( Amer) 30.0 Est GFR (Non-Af Amer) 25.9 BUN/Creatinine Ratio 44.9 H Glucose 155 H POC Glucose 154 H Estimat Average Glucose 111 Hemoglobin A1c 5.5 Calcium 8.9 05/20/22 05/20/22 05/20/22 11:23 16:30 20:09 Sodium Potassium Chloride Carbon Dioxide Anion Gap BUN Creatinine Est Cr Clr Drug Dosing Est GFR ( Amer) Est GFR (Non-Af Amer) BUN/Creatinine Ratio Glucose POC Glucose 175 H 178 H 152 H Estimat Average Glucose Hemoglobin A1c Calcium PG Care Time/CCT Total # of Minutes Spent Total Time Spent with Patient: Total time spent is greater than 50% in coordination of care (as documented) at patient's floor/unit and/or counseling patient: Coding Level of Care Code 10318 Subseq Hosp Care Lvl 2 Diagnoses Right lower lobe pneumonia J18.9 COPD exacerbation J44.1 Acute on chronic diastolic (congestive) heart failure I50.33 Elevated troponin R77.8 History of pulmonary embolism Z86.711 Paroxysmal atrial fibrillation I48.0 Squamous cell lung cancer C34.91 Laterality: right Hyperlipidemia E78.5 Hyperlipidemia type: unspecified Hypertension I10 Hypertension type: essential hypertension CKD (chronic kidney disease), stage III N18.3 Coronary artery disease I25.10 Associated angina: without angina Coronary Disease-Associated Artery/Lesion type: [place] artery [place] vs. transplanted heart: [place] heart Positive blood culture R78.81 DVT prophylaxis Z29.9 Hyperglycemia R73.9 KANU (acute kidney injury) N17.9 (1) Coronary artery disease Associated angina: without angina Coronary Disease-Associated Artery/Lesion type: [place] artery [place] vs. transplanted heart: [place] heart Qualified Code(s): I25.10 - Atherosclerotic heart disease of [place] coronary artery without angina pectoris (2) Hyperlipidemia Hyperlipidemia type: unspecified Qualified Code(s): E78.5 - Hyperlipidemia, unspecified (3) Squamous cell lung cancer Laterality: right Qualified Code(s): C34.91 - Malignant neoplasm of unspecified part of right bronchus or lung (4) Hypertension Hypertension type: essential hypertension Qualified Code(s): I10 - Essential (primary) hypertension
[2022-05-21] MEDS: methylPREDNISolone 30 MG in SYRINGE 0 ML IV SCH ×2 (05:39→17:49)
[2022-05-21] MEDS: ALBUT/IPRATROP 3MG/0.5MG NEB 3 ML VIAL NEB SCH ×4 (07:25→19:41)
[2022-05-21] MEDS: guaiFENesin 600 MG TABCR PO SCH ×2 (07:50→20:09)
[2022-05-21] MEDS: carvediloL 25 MG TAB PO SCH ×2 (07:50→20:12)
[2022-05-21] MEDS: UMECLIDINIUM BROMIDE 62.5MCG/BLISTER 7 PUFFS/INHALER INH SCH ×2 (07:51→20:09)
[2022-05-21] MEDS: APIXABAN 2.5 MG TAB PO SCH ×2 (07:51→20:08)
[2022-05-21] MEDS: FLUTICASONE/VILANTEROL 100/25MCG 14 PUFFS/INHALER INH SCH (07:51)
[2022-05-21] MEDS: BENZONATATE 100 MG CAPSULE PO SCH ×3 (07:51→20:08)
[2022-05-21] MEDS: allopurinoL 100 MG TAB PO SCH (07:51)
[2022-05-21] MEDS: hydrALAZINE HCL 25 MG TAB PO SCH (07:51)
[2022-05-21 08:39] LABS: Hematocrit (blood only) 37.1 % (34.1-44.9); Hemoglobin 11.8 g/dl (12.0-16.0); Mean Corpuscular Hemoglobin 29.1 pg (25.0-34.0); Mean Corpuscular Hgb Conc 31.8 g/dL (32.0-36.0); Mean Corpuscular Volume 91.6 fL (80.0-100.0); Mean Platelet Volume 9.8 fL (9.4-12.3); Platelet Count 285 K/uL (130-400); RDW Coefficient of Variation 13.9 % (11.5-14.5); RDW Standard Deviation 47.3 fL (36.4-46.3); Red Blood Count 4.05 M/uL (3.93-5.22); White Blood Count 13.11 K/ul (4.8-10.8)
[2022-05-21] MEDS: INSULIN ASPART PER UNIT SC SCH ×4 (09:01→21:09)
[2022-05-21 09:08] LABS: Calcium 9.2 mg/dl (8.5-10.1); Creatinine Clr Calc Pharmacy 21.6 ml/min; Est GFR (African American) 28.7 ml/min; Est GFR (Non-African American) 24.7 ml/min; Potassium 4.5 mmol/L (3.5-5.1)
[2022-05-21] MEDS ORDERED: hydrALAZINE HCL 25 MG TAB PO STA (09:10)
[2022-05-21] MEDS ORDERED: SODIUM CHLORIDE 0.9% 500 ML IV SCH (09:15)
[2022-05-21] MEDS: CEFDINIR 300 MG CAP PO SCH (10:14)
[2022-05-21] MEDS: hydrALAZINE TAB 50 MG TAB PO SCH (18:07)
[2022-05-21] MEDS: SODIUM CHLOR 7% 4 ML NEB NEB SCH (19:41)
--- NOTE | 2022-05-21 20:01 | Hospitalist Progress Note ---
Date of Service May 21, 2022 Assessment & Plan (1) Right lower lobe pneumonia: Plan: IMPROVED. day #6 of abx therapy. initially was on rocephin and had 5 days of such; now cefdinir x 2 days. finished 5-day course zithromax. has concomitant COPD exacerbation - see below. + blood culture likely contamination. cont supportive care, mucolytics, pulmonary toilet, NC O2, etc. cont tessalon TID. stop vibration vest -- patient states it hasn't help mucous production or how she feels. add NaCL nebs BID. repeat cxr - ensure radiographic pneumonia is resolving and no CHF, etc. appreciate speech therapy consultation -- no obvious aspiration at this time. (2) COPD exacerbation: Plan: IMPROVED, but still with cough. Olgo-eas-[id number] no dyspnea, no wheezing, no CORONA. stop IV solumedrol. change to PO dexamethasone 6mg daily in am. cont scheduled duonebs QID. cont incentive spirometry. cont flutter valve. cont mucinex 1200mg BID. stop vibration vest. trial of NaCl nebs BID. sputum cx negative. cont home inhalers. cxr ordered as in #1 above. (3) Acute on chronic diastolic (congestive) heart failure: Plan: resolved. diuretics stopped. appreciate cardiology consultation. echo findings noted. (4) Elevated troponin: Plan: 2nd to myocardial demand ischemia. no ACS suspected. appreciate cardiology consultation. (5) History of pulmonary embolism: Plan: noted. cont Eliquis. (6) Paroxysmal atrial fibrillation: Plan: brief run of PAT earlier this week but no PAF seen on tele. tele has been stable for several days. can d/c tele today. cont coreg BID. (7) Squamous cell lung cancer: Plan: history of - Right lower lobe - s/p RLL lobectomy. decreased BS in the right base likely combination of prior lobectomy & her current pneumonia. (8) Hyperlipidemia: Plan: cont statin therapy. (9) Hypertension: Plan: uncontrolled. cont coreg. cont hydralazine but increase to 50mg BID. acute elevations may be worsened by steroid therapy. (10) CKD (chronic kidney disease), stage III: Plan: stage 3b with mild KANU - likely overdiuresis give 500cc of fluid and repeat BMP am (11) Coronary artery disease: Plan: no ischemic symptoms at this time. cont BB cont statin (12) Positive blood culture: Plan: 11/02 from admission -- likely contaminant. coag neg staph. no Rx needed. (13) DVT prophylaxis: Plan: eliquis BID (14) Hyperglycemia: Plan: no formal dx of DM but BSGs are high in setting of her illness & steroids. cont BSGs ac/hs. cont novolog SSI. Hba1c 5.5% diet - DM diet. (15) KANU (acute kidney injury): Plan: 2nd over-diuresis? give 500cc of IV fluid today and repeat BMP am Plan hopefully home next 1-2 days progressing nicely d/c tele move to med/surg Admission and Anticipated Discharge Date Admission Date: May 16, 2022 Subjective tele stable overnight "I'm still coughing" - minimal mucous production again received chest PT this am via vibration vest - she doesn't notice any change in her symptoms/cough/mucous production w/ using such eating well no dyspnea at rest or with activity last pm she didn't have her NC O2 on with sleep woke up with headache headache now gone Review of Systems Review of Systems: gen - no fever cv - no orthopnea pulm - no wheezing -- just cough GI - no constipation or diarrhea Physical Exam Physical Exam: gen - ongoing bronchial cough much like prior visits, eating dinner; NAD mouth - MMM, no thrush neck - no JVD heart - RRR, s1 s2, no murmur lungs - decreased BS right base only with minimal crackle RLL; airation wnl otherwise; no wheezes; no crackles elsewhere; no increased work of breathing abd - soft NT ND BS+ ext - no edema, pulses 2+ b/l psych - a/o x 3 Results & Data Results & Data ([facility]) Vital Signs (Past 12 Hours) Vital Signs Temp Pulse Resp BP BP Pulse Ox O2 Del Method 05/21/22 19:42 85 18 96 Nasal Cannula 05/21/22 18:38 36.4 C L 73 16 184/89 H 98 Nasal Cannula 05/21/22 17:59 171/75 H 05/21/22 15:45 36.7 C 70 20 173/78 H 98 Nasal Cannula 05/21/22 14:40 87 18 98 Nasal Cannula 05/21/22 11:23 36.5 C 65 18 142/71 H 96 Nasal Cannula 05/21/22 11:01 86 18 98 Nasal Cannula O2 Flow Rate 05/21/22 19:42 2 05/21/22 18:38 2 05/21/22 17:59 05/21/22 15:45 2 05/21/22 14:40 2 05/21/22 11:23 2 05/21/22 11:01 2 Laboratory Results Laboratory Results - last 24 hr 05/20/22 05/21/22 05/21/22 20:09 07:24 07:45 WBC 13.11 H RBC 4.05 Hgb 11.8 L Hct 37.1 MCV 91.6 MCH 29.1 MCHC 31.8 L RDW Std Deviation 47.3 H RDW Coeff of Mio 13.9 Plt Count 285 MPV 9.8 Sodium Potassium Chloride Carbon Dioxide Anion Gap BUN Creatinine Est Cr Clr Drug Dosing Est GFR ( Amer) Est GFR (Non-Af Amer) BUN/Creatinine Ratio Glucose POC Glucose 152 H 136 H Calcium 05/21/22 05/21/22 07:45 11:43 WBC RBC Hgb Hct MCV MCH MCHC RDW Std Deviation RDW Coeff of [place] Plt Count MPV Sodium 136 Potassium 4.5 Chloride 102 Carbon Dioxide 27 Anion Gap 7 BUN 87 H Creatinine 1.85 H Est Cr Clr Drug Dosing 21.6 Est GFR ( Amer) 28.7 Est GFR (Non-Af Amer) 24.7 BUN/Creatinine Ratio 47.0 H Glucose 132 H POC Glucose 215 H Calcium 9.2 PG Care Time/CCT Total # of Minutes Spent Total Time Spent with Patient: Total time spent is greater than 50% in coordination of care (as documented) at patient's floor/unit and/or counseling patient: Coding Level of Care Code 84081 Subseq Hosp Care Lvl 3 Diagnoses Right lower lobe pneumonia J18.9 COPD exacerbation J44.1 Acute on chronic diastolic (congestive) heart failure I50.33 Elevated troponin R77.8 History of pulmonary embolism Z86.711 Paroxysmal atrial fibrillation I48.0 Squamous cell lung cancer C34.91 Laterality: right Hyperlipidemia E78.5 Hyperlipidemia type: unspecified Hypertension I10 Hypertension type: essential hypertension CKD (chronic kidney disease), stage III N18.3 Coronary artery disease I25.10 Associated angina: without angina Coronary Disease-Associated Artery/Lesion type: [place] artery [place] vs. transplanted heart: [place] heart Positive blood culture R78.81 DVT prophylaxis Z29.9 Hyperglycemia R73.9 KANU (acute kidney injury) N17.9 (1) Coronary artery disease Associated angina: without angina Coronary Disease-Associated Artery/Lesion type: [place] artery [place] vs. transplanted heart: [place] heart Qualified Code(s): I25.10 - Atherosclerotic heart disease of [place] coronary artery without angina pectoris (2) Hyperlipidemia Hyperlipidemia type: unspecified Qualified Code(s): E78.5 - Hyperlipidemia, unspecified (3) Squamous cell lung cancer Laterality: right Qualified Code(s): C34.91 - Malignant neoplasm of unspecified part of right bronchus or lung (4) Hypertension Hypertension type: essential hypertension Qualified Code(s): I10 - Essential (primary) hypertension
[2022-05-21] MEDS ORDERED: NIFEdipine EXTENDED REL 30 MG TABCR PO STA (20:05)
[2022-05-21] MEDS: SIMVASTATIN 40 MG TAB PO SCH (20:09)
--- NOTE | 2022-05-21 20:24 | XRay Report ---
TWO VIEW CHEST CLINICAL HISTORY: Cough. Recent pneumonia. FINDINGS: PA and lateral chest radiographs are compared to chest x-ray and chest CT dated 05/16/2022. The heart is enlarged noting atherosclerotic calcification of the thoracic aorta. The pulmonary vascu lature is noncongested. Emphysema and chronic interstitial thickening is similar to previous. There i s postoperative change and volume loss in the right lung consistent with previous surgical resection. Pleural fluid at the right lung base is similar to previous. The left lung is clear. Right basilar o pacities have almost completely resolved as compared to 05/16/2022. Residual left basilar opacities li martine represents scarring/atelectasis. There is no pneumothorax. The skeletal structures are osteopeni c. Chronic deformity is noted in the right sided ribs. IMPRESSION: 1. Cardiomegaly and emphysema with postoperative change from right-sided pulmonary resection as above . 2. Airspace consolidation at the right lung base has almost completely resolved as compared to 022. Residual right basilar opacities likely represent scarring/atelectasis and clinical correlation will required. 3. Trace chronic pleural fluid at the right lung base is similar to prior studies. ACT 112: Negative or not required by law. Electronically signed by: Pradeep Avina M.D. 05/21/2022 8:22 PM
[2022-05-22 07:05] LABS: BUN Creatinine Ratio 59.2 (10-20); Calcium 8.8 mg/dl (8.5-10.1); Creatinine Clr Calc Pharmacy 28.1 ml/min; Est GFR (African American) 39.5 ml/min; Est GFR (Non-African American) 34.1 ml/min; Potassium 5.1 mmol/L (3.5-5.1)
[2022-05-22] MEDS: ALBUT/IPRATROP 3MG/0.5MG NEB 3 ML VIAL NEB SCH ×4 (07:26→19:22)
[2022-05-22] MEDS: SODIUM CHLOR 7% 4 ML NEB NEB SCH ×2 (07:26→19:22)
[2022-05-22] MEDS: FLUTICASONE/VILANTEROL 100/25MCG 14 PUFFS/INHALER INH SCH (07:51)
[2022-05-22] MEDS: dexAMETHasone 1 MG TAB PO SCH (07:52)
[2022-05-22] MEDS: BENZONATATE 100 MG CAPSULE PO SCH ×3 (07:52→20:20)
[2022-05-22] MEDS: guaiFENesin 600 MG TABCR PO SCH ×2 (07:52→20:20)
[2022-05-22] MEDS: UMECLIDINIUM BROMIDE 62.5MCG/BLISTER 7 PUFFS/INHALER INH SCH ×2 (07:52→07:54)
[2022-05-22] MEDS: carvediloL 25 MG TAB PO SCH ×2 (07:52→20:23)
[2022-05-22] MEDS: APIXABAN 2.5 MG TAB PO SCH ×2 (07:53→20:20)
[2022-05-22] MEDS: CEFDINIR 300 MG CAP PO SCH (07:53)
[2022-05-22] MEDS: allopurinoL 100 MG TAB PO SCH (07:53)
[2022-05-22] MEDS: hydrALAZINE TAB 50 MG TAB PO SCH ×3 (07:53→20:21)
[2022-05-22] MEDS: INSULIN ASPART PER UNIT SC SCH ×4 (08:25→21:08)
--- NOTE | 2022-05-22 13:57 | CT Scan Report ---
HEAD CT NONCONTRAST CT DOSE: 614.27 mGy.cm HISTORY: Altered mental status. TECHNIQUE: Multiaxial CT images of the head were performed without the use of intravenous contrast. A utomated exposure control was utilized for this study. A dose lowering technique was utilized adheri ng to the principles of ALARA. Comparison: Head CT 01/12/2019. Findings: The paranasal sinuses and mastoid air cells are clear. The calvarium and skull base are int act. There is no mass, hematoma, midline shift, acute infarct. White matter hypodensity is nonspecifi c but suggestive of microvascular ischemic change. The ventricles and sulci demonstrate mild age-rela farshad involutional changes. Impression: No acute intracranial abnormality. Atrophy and microvascular ischemic changes. ACT 112: Negative or not required by law. Electronically signed by: Lopez Lee M.D. 05/22/2022 1:56 PM
[2022-05-22] MEDS: ASPIRIN 81 MG ECTAB PO SCH (14:08)
--- NOTE | 2022-05-22 15:37 | Magnetic Resonance Report ---
MRI OF THE BRAIN WITHOUT CONTRAST CLINICAL HISTORY: posterior circulation TIA (ataxia, vertigo) COMPARISON STUDY: Head CT May 22, 2022. TECHNIQUE: Utilizing a 1.5 Rafaela magnet and dedicated coil, multiplanar, multiecho imaging of the bra in was performed without IV contrast. FINDINGS: There are no foci of restricted diffusion to suggest acute infarct. No acute intracranial h emorrhage, midline shift or mass effect is present. Ventricular system is unremarkable. Basal cistern s are patent. There are no extra-axial collections. Flow-voids for the major intracranial vessels are present. No intracranial masses are identified on this unenhanced exam. There is mild atrophy. White matter T2 hyperintense foci suggest moderate small vessel disease. Calvarial signal is normal. No ev idence for sinusitis. No significant mastoid fluid is present. Appearance of the brain is unchanged s flory prior head CT. IMPRESSION: No acute intracranial findings. ACT 112: Negative or not required by law. Electronically signed by: Gerardo Pires M.D. 05/22/2022 3:34 PM
--- NOTE | 2022-05-22 15:38 | Magnetic Resonance Report ---
MRA OF THE INTRACRANIAL CIRCULATION WITHOUT CONTRAST CLINICAL HISTORY: ataxia, vertigo, visual change; TIA COMPARISON STUDY: None. TECHNIQUE: Utilizing a 1.5 Rafaela magnet and 3-D [id number] technique, unenhanced MRA of the intra cranial circulation was obtained. FINDINGS: This study is mildly compromised by motion artifact. No intracranial aneurysm is identified . There is no central vessel occlusion. The bilateral M1, M2, A1 and A2 segments are patent. Left [place] tebral artery is dominant. There is diminished caliber of the distal intracranial portion the right v ertebral artery which may be congenital or due to atherosclerosis. This is not acute. IMPRESSION: No central vessel occlusion. No intracranial aneurysm. ACT 112: Negative or not required by law. Electronically signed by: Gerardo Pires M.D. 05/22/2022 3:37 PM
--- NOTE | 2022-05-22 16:20 | Magnetic Resonance Report ---
MRA OF THE NECK WITHOUT CONTRAST CLINICAL HISTORY: ataxia, vertigo, visual change; TIA COMPARISON STUDY: None. TECHNIQUE: A 1.5 Rafaela magnet was utilized. 2-D and 3-D [id number] imaging was performed to obt ain unenhanced MRA of the neck. NASCET criteria were utilized to estimate the degree of carotid sten osis. FINDINGS: This exam is compromised given lack of postcontrast imaging. However, the bilateral carotid bifurcations are grossly patent. No stenosis is identified within visualized portions of the bilater al common carotid, cervical internal carotid and vertebral arteries. The origins of these vessels wer e not imaged on this exam. Left vertebral artery is dominant. IMPRESSION: Technically compromised exam, as described above. No stenosis within visualized portions of the bilateral common carotid, cervical internal carotid and vertebral arteries. ACT 112: Negative or not required by law. Electronically signed by: Gerardo Pires M.D. 05/22/2022 4:18 PM
--- NOTE | 2022-05-22 20:04 | Hospitalist Progress Note ---
Date of Service May 22, 2022 Assessment & Plan (1) Acute severe vertigo: Plan: Yesterday pm - duration uncertain. Acute vertigo with visual disturbance + ataxia. Worrisome for posterior circulation TIA vs cerebrovasospasm vs BP-related vs other. Add asa 81mg to her Eliquis. CT head - r/o ICH. If negative then MRI brain to r/o CVA. CrCl too low for CTAs thus obtain noncontrast MRA head/neck. Already had echo earlier this admission. Has had PT/OT evals this admission. Then formal neurology consult in am. Hydralazine titrated today for uncontrolled HTN. (2) Right lower lobe pneumonia: Plan: Resolving radiographically and improving clinically. Today is day #7 of IV/PO abx; after today's dose she has completed all abx therapy. (initially was on rocephin and had 5 days of such; now cefdinir x 2 days; finished 5-day course zithroma). has concomitant COPD exacerbation - see below. + blood culture likely contamination. cont supportive care, mucolytics, pulmonary toilet, NC O2, etc. cont tessalon TID. cont NaCL nebs BID. appreciate speech therapy consultation -- no obvious aspiration at this time. (3) COPD exacerbation: Plan: IMPROVED, but still with cough. [id number] no dyspnea, no wheezing, no CORONA. O2 sats stable on minimal amount NC O2. solumedrol changed to PO dexamethasone 6mg today then wean over about 1 week. cont scheduled duonebs QID. cont incentive spirometry. cont flutter valve. cont mucinex 1200mg BID. cont NaCl nebs BID. sputum cx negative. cont home inhalers. cxr yesterday with nearly-resolved RLL pneumonia/infiltrate. (4) Acute on chronic diastolic (congestive) heart failure: Plan: resolved. diuretics stopped. appreciate cardiology consultation. echo findings noted. (5) Elevated troponin: Plan: 2nd to myocardial demand ischemia. no ACS suspected. appreciate cardiology consultation. (6) History of pulmonary embolism: Plan: noted. cont Eliquis. (7) Paroxysmal atrial fibrillation: Plan: brief run of PAT earlier this week but no PAF seen on tele over 5+ days. cont coreg BID. cont eliquis. (8) Squamous cell lung cancer: Plan: history of - Right lower lobe - s/p RLL lobectomy. decreased BS in the right base likely combination of prior lobectomy & her current pneumonia. (9) Hyperlipidemia: Plan: cont statin therapy. (10) Hypertension: Plan: uncontrolled. cont coreg. cont hydralazine but increase to 50mg TID. acute elevations may be worsened by steroid therapy. (11) CKD (chronic kidney disease), stage III: Plan: stage 3b with mild KANU - likely overdiuresis gave 500cc of fluid yesterday and creatinine is improved today (12) Coronary artery disease: Plan: no ischemic symptoms at this time. cont BB cont statin (13) Positive blood culture: Plan: 11/02 from admission -- likely contaminant. coag neg staph. no Rx needed. (14) DVT prophylaxis: Plan: eliquis BID (15) Hyperglycemia: Plan: no formal dx of DM but BSGs are high in setting of her illness & steroids. cont BSGs ac/hs. cont novolog SSI - add carb coverage. Hba1c 5.5% diet - DM diet. (16) KANU (acute kidney injury): Plan: improved s/p IV fluids yesterday Cr now 1.4 today (baseline) Plan daughter updated at bedside, and following her MRI/MRAs I left daughter a voicemail as well if stable overnight, if no other recs from neuro tomorrow, and if feeling good tomorrow may be able to d/c home on Monday Admission and Anticipated Discharge Date Admission Date: May 16, 2022 Subjective patient eating her meal upon my arrival good appetite patient states that late last evening she had ambulated to the bathroom and did not feel comfortable on her feet she felt imbalanced and unsteady after returning to bed she was watching TV and suddenly developed acute vertigo she then had visual disturbance - she had a hard time describing it she had difficult time seeing the TV when the vision was off she can't say how long symptoms lasted but "it felt like a long time" no vomiting all of the symptoms ultimately resolved this am - no vertigo, no ataxia, no visual disturbance ongoing cough but no dyspnea or CORONA feels good otherwise Review of Systems Review of Systems: gen - no fevers cv - no chest pain pulm - no wheeze, no CORONA GI - no abd pain, no nausea/emesis Physical Exam Physical Exam: gen - sitting at side of bed, eating her meal, NAD, some cough eyes - PERRL; visual butts full by direct confrontation, EOMI mouth - MMM, no thrush neck - no JVD heart - RRR, s1 s2, no murmur lungs - CTA b/l; decreased BS right base only - airation wnl otherwise; no wheezes; no crackles; no increased work of breathing abd - soft NT ND BS+ ext - no edema, pulses 2+ b/l psych - a/o x 3 neuro - CN 3-12 intact; speech fluent/clear; strength 5/5 x 4 exts; DTRs 2+ b/l upper & lower exts; no ataxia finger/nose/finger maneuver; gait not tested Results & Data Results & Data ([facility]) Vital Signs (Past 12 Hours) Vital Signs Temp Pulse Pulse Pulse Resp BP BP 05/22/22 19:23 74 18 05/22/22 16:00 36.7 C 84 18 147/70 H 05/22/22 14:07 75 155/79 H 05/22/22 11:06 75 20 05/22/22 09:26 72 156/73 H Pulse Ox O2 Del Method O2 Flow Rate 05/22/22 19:23 97 Nasal Cannula 2 05/22/22 16:00 97 Nasal Cannula 2 05/22/22 14:07 05/22/22 11:06 98 Nasal Cannula 2 05/22/22 09:26 97 Laboratory Results Laboratory Results - last 24 hr 05/21/22 05/22/22 05/22/22 20:37 06:14 08:00 Sodium 136 Potassium 5.1 Chloride 105 Carbon Dioxide 27 Anion Gap 4 BUN 84 H Creatinine 1.42 H D Est Cr Clr Drug Dosing 28.1 Est GFR ( Amer) 39.5 Est GFR (Non-Af Amer) 34.1 BUN/Creatinine Ratio 59.2 H Glucose 138 H POC Glucose 164 H 129 H Calcium 8.8 05/22/22 05/22/22 12:05 17:52 Sodium Potassium Chloride Carbon Dioxide Anion Gap BUN Creatinine Est Cr Clr Drug Dosing Est GFR ( Amer) Est GFR (Non-Af Amer) BUN/Creatinine Ratio Glucose POC Glucose 187 H 148 H Calcium PG Care Time/CCT Total # of Minutes Spent Total Time Spent with Patient: Total time spent is greater than 50% in coordination of care (as documented) at patient's floor/unit and/or counseling patient: Coding Level of Care Code 89817 Subseq Hosp Care Lvl 3 Diagnoses Acute severe vertigo R42 Right lower lobe pneumonia J18.9 COPD exacerbation J44.1 Acute on chronic diastolic (congestive) heart failure I50.33 Elevated troponin R77.8 History of pulmonary embolism Z86.711 Paroxysmal atrial fibrillation I48.0 Squamous cell lung cancer C34.91 Laterality: right Hyperlipidemia E78.5 Hyperlipidemia type: unspecified Hypertension I10 Hypertension type: essential hypertension CKD (chronic kidney disease), stage III N18.3 Coronary artery disease I25.10 Associated angina: without angina Coronary Disease-Associated Artery/Lesion type: [place] artery [place] vs. transplanted heart: [place] heart Positive blood culture R78.81 DVT prophylaxis Z29.9 Hyperglycemia R73.9 KANU (acute kidney injury) N17.9 (1) Coronary artery disease Associated angina: without angina Coronary Disease-Associated Artery/Lesion type: [place] artery [place] vs. transplanted heart: [place] heart Qualified Code(s): I25.10 - Atherosclerotic heart disease of [place] coronary artery without angina pectoris (2) Hyperlipidemia Hyperlipidemia type: unspecified Qualified Code(s): E78.5 - Hyperlipidemia, unspecified (3) Squamous cell lung cancer Laterality: right Qualified Code(s): C34.91 - Malignant neoplasm of unspecified part of right bronchus or lung (4) Hypertension Hypertension type: essential hypertension Qualified Code(s): I10 - Essential (primary) hypertension
[2022-05-22] MEDS: SIMVASTATIN 40 MG TAB PO SCH (20:20)
[2022-05-23 06:47] LABS: BUN Creatinine Ratio 50.9 (10-20); Calcium 8.7 mg/dl (8.5-10.1); Creatinine Clr Calc Pharmacy 25.1 ml/min; Est GFR (African American) 34.4 ml/min; Est GFR (Non-African American) 29.7 ml/min; Potassium 5.5 mmol/L (3.5-5.1)
[2022-05-23] MEDS: ALBUT/IPRATROP 3MG/0.5MG NEB 3 ML VIAL NEB SCH ×4 (07:08→19:18)
[2022-05-23] MEDS: SODIUM CHLOR 7% 4 ML NEB NEB SCH ×2 (07:08→19:18)
[2022-05-23] MEDS: carvediloL 25 MG TAB PO SCH ×2 (08:04→20:23)
[2022-05-23] MEDS: hydrALAZINE TAB 50 MG TAB PO SCH ×3 (08:04→20:23)
[2022-05-23] MEDS: ASPIRIN 81 MG ECTAB PO SCH (08:05)
[2022-05-23] MEDS: guaiFENesin 600 MG TABCR PO SCH (08:05)
[2022-05-23] MEDS: FLUTICASONE/VILANTEROL 100/25MCG 14 PUFFS/INHALER INH SCH (08:05)
[2022-05-23] MEDS: APIXABAN 2.5 MG TAB PO SCH ×2 (08:05→20:23)
[2022-05-23] MEDS: allopurinoL 100 MG TAB PO SCH (08:06)
[2022-05-23] MEDS: dexAMETHasone 1 MG TAB PO SCH (08:06)
[2022-05-23] MEDS: UMECLIDINIUM BROMIDE 62.5MCG/BLISTER 7 PUFFS/INHALER INH SCH ×2 (08:07)
[2022-05-23] MEDS: BENZONATATE 100 MG CAPSULE PO SCH ×3 (08:49→20:23)
[2022-05-23] MEDS: INSULIN ASPART PER UNIT SC SCH ×4 (08:56→20:51)
--- NOTE | 2022-05-23 09:01 | Neurology Consultation ---
Date of Consultation May 23, 2022 Assessment & Plan (1) Acute severe vertigo: (2) Pre-syncope: Plan 81-year-old female with an episode of transient vertigo, presyncope, feeling of imbalance, transient vision change/dimming down, occurring last night in the context of getting up to urinate. Symptoms have not recurred. She is neurologically intact. Unremarkable extensive neuroimaging including CT of the head, MRI of the brain, as well as MRA of the head and neck. The patient may have had a vasovagal episode. A posterior circulation TIA cannot be completely excluded although it is encouraging that her above imaging was unremarkable. Inner ear pathology seems unlikely at this point in time. Additional neurological evaluations are not necessary at this time. Patient should continue with Eliquis, daily low-dose aspirin, and Zocor. Continue medical management of hypertension. No further neurological recommendations at this time. History of Present Illness Reason for Consultation: Vertigo, concern for TIA Requesting Physician: Dr. Braxton Attending Physician: Nikolas Braxton History of Present Illness The patient is a 89-year-old female who was admitted to [facility] on May 16, 2022 for further evaluation and management of shortness of breath occurring in the context of pneumonia, COPD exacerbation, acute on chronic diastolic congestive heart failure, elevated troponins, history of pulmonary embolism as well as atrial fibrillation on apixaban, history of squamous cell lung cancer status post right lower lobe lobectomy, hyperlipidemia, hypertension, chronic stage III kidney disease, and coronary artery disease. She had been clinically improving since her admission and have been getting up to ambulate with therapy and to use the commode without difficulty until an episode of severe vertigo and imbalance that occurred yesterday evening. The patient indicates that she had gotten up to use the commode to urinate, and felt slightly off balance. She urinated without event and ambulated back to bed. After sitting in bed for probably a few minutes, she began to feel extremely lightheaded, dizzy, as if she might pass out. She recalls a sensation of motion, possibly spinning as well as an associated change in vision, although difficult to describe, as if her vision was perhaps dimming down, but not entirely clear, unable to give further details. Denied actual vision loss or diplopia. Denied any associated change in speech. No dysarthria, no aphasia, denied experiencing any focal weakness or heaviness of the limbs, denied any associated paresthesia or sensory loss. Episode duration not entirely clear, perhaps less than a minute or so. Denied actual loss of consciousness or awareness. CT of the head, MRI of the brain, and MRA of the head and neck were completed as well. These tests were negative for acute process or vascular lesion. The patient denies experiencing similar symptoms in the past, no known history of stroke or TIA, denies a prior history of migraine. Denies any associated inner ear symptomatology at this time such as aural fullness, hearing loss, or tinnitus. Denied experiencing any associated nausea with the above episode. Has been feeling well since that time, no symptomatic recurrence. Allergies Allergy/AdvReac Type Severity Reaction Status Date / Time chlorhexidine Allergy Mild HIVES,RED Verified 05/16/22 19:28 RASH Home Medications Medication Instructions Recorded Confirmed Type ferrous sulfate 325 mg (65 mg 325 mg PO QAM 12/23/18 05/16/22 History iron) tablet cyanocobalamin (vitamin B-12) 1,000 mcg PO QAM 05/02/19 05/16/22 History 1,000 mcg tablet (Vitamin B-12) Oxygen Home #1 ea 05/16/19 05/16/22 Rx docusate sodium 100 mg capsule 100 mg PO DAILY PRN Constipation 06/05/19 05/16/22 History albuterol sulfate 90 mcg/actuation 1 puffs inhalation Q6H PRN 07/31/19 05/16/22 History aerosol inhaler (Ventolin HFA) Shortness Of Breath nystatin 100,000 unit/gram topical 1 applic topical BID PRN . #15 10/22/20 05/16/22 Rx cream grams simvastatin 40 mg tablet 40 mg PO HS #90 tabs 06/24/21 05/16/22 Rx carvedilol 25 mg tablet 25 mg PO BID #180 tabs 09/29/21 05/16/22 Rx fluticasone furoate 100 1 inh inhalation DAILY 90 days #3 11/16/21 05/16/22 Rx mcg-vilanterol 25 mcg/dose Inhalers inhalation powder (Breo Ellipta) ergocalciferol (vitamin D2) 1,250 50,000 unit PO MONTHLY #3 caps 12/27/21 05/16/22 Rx mcg (50,000 unit) capsule furosemide 20 mg tablet (Lasix) 20 mg PO QAM #30 tabs 03/25/22 05/16/22 Rx hydralazine 25 mg tablet 25 mg PO BID #180 tabs 04/11/22 05/16/22 Rx allopurinol 100 mg tablet 100 mg PO DAILY #30 tabs 05/10/22 05/16/22 Rx prednisone 10 mg tablet See Rx Instructions PO DAILY 8 05/10/22 05/16/22 Rx days #20 tabs apixaban 2.5 mg tablet 2.5 mg PO BID #180 tabs 05/11/22 05/16/22 Rx tiotropium bromide 2.5 1 inh inhalation BID 05/16/22 05/16/22 History mcg/actuation mist for inhalation (Spiriva Respimat) Patient History Medical History (Updated 05/23/22 @ 09:09 by Anshul Flannery MD) Acute on chronic diastolic (congestive) heart failure Acute upper abdominal pain Anemia Cardiomyopathy Cellulitis CKD (chronic kidney disease) BASELINE CREATININE 1.6-1.8 PER CHART REVIEW COPD (chronic obstructive pulmonary disease) Coronary artery disease NON-OBSRTUCTIVE Cough Dyspnea Edema due to hypoalbuminemia Elevated serum creatinine Fall Hand pain History of abdominal aortic aneurysm (AAA) S/P REPAIR 2016 History of OH (myocardial infarction) 2016= MEDICALLY MANAGED Hyperlipidemia Hypertension Left wrist pain Lung nodule Mitral regurgitation Multinodular goiter Nasal bleeding Nocturnal hypoxemia 2L AT HS Osteoarthritis Pulmonary embolism RECURRENT (~2012) ON COUMADIN 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 Sacroiliitis Secondary renal hyperparathyroidism Shingles Takotsubo syndrome 2016 URI (upper respiratory infection) Vitamin D deficiency Surgical History AAA (abdominal aortic aneurysm) S/P REPAIR 2016 History of bladder surgery TURBT History of bronchoscopy EBUS, Navigational bronch with biopsy: 02/21/19: Grade 2 view, MAC 3, ETT 8.5 History of lobectomy of lung History of tooth extraction 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) Family History Sister Skin cancer Mother Cancer Other Dyslipidemia Hypertension Malignant neoplasm of bone Denies family history of Colon cancer Ovarian cancer Prostate cancer Kidney disease Myocardial infarction Breast cancer Social History Smoking Status: Never smoker Cigarettes Per Day: 30; Second Hand Exposure: No; Hx Alcohol Use: No Hx Substance Use: No Preferred Language: Sinhala Communication Ability: Effective Visual Impairment: No Limitations Hearing Ability: Normal Sports Athletic Trainer Required: No Beliefs That Will Affect Care: None marital status: / Current Living Situation: Alone current occupational status: retired Other Information That Helps Us Care for You: No Feels Safe at Home: Yes Safety Concerns: Feels Safe At This Time Childhood Exposure to Second-Hand Smoke: Yes Dental Care, Regularly: No Physical Activity Frequency: Does not Exercise Seatbelt Use: always Sunscreen Use: No Assistive Devices: Glasses, Oxygen - Continuous and Walker Review of Systems Constitutional: no fever and no chills Eyes: no blind spots and no diplopia Ear, Nose, Mouth, Throat: no ear pain, no tinnitus and no hearing loss Respiratory: + cough and + dyspnea Cardiovascular: no chest pain and no palpitations Gastrointestinal: no nausea and no vomiting Genitourinary: no dysuria Musculoskeletal: no back pain and no neck pain Integumentary: no rash and no lesions Neurologic: as per Subjective / HPI Psychiatric: no depression and no anxiety Hematologic / Lymphatic: no easy bleeding and no easy bruising Exam (Neuro) 2 Constitutional: well developed and well nourished; no acute distress Eyes: normal visual butts by confrontation, PERRL, normal accommodation and EOM intact bilaterally; no fundoscopic abnormality, no nystagmus and no papilledema Cardiovascular: Vessels: normal carotid upstroke; no carotid bruit Neurologic: Oriented to:: Person, Place and Time Memory: Short Term Intact and Remote Intact Attention: Span Intact and Concentration Intact Language: Naming Objects and Repeating Phrases Speech Fluency: negative Dysarthria Speech Aphasia: negative Aphasia Fund of Knowledge: Current Events, Past History and Vocabulary Cranial Nerves: Normal II (Visual butts full to confrontation, visual acuity normal), III, IV, (Pupils equal round reactive to light and accommodation, eye movements normal), V (Facial sensation intact), VII (There is no facial droop or weakness), VIII (Hearing intact), IX, X (Palate elevates to midline), XI (Shoulder shrug intact) and XII (Tongue protrudes to midline) Motor Strength: Normal Lower Extremities and Normal Upper Extremities; negative Pronator Drift Motor Tone: Normal Lower Extremities and Normal Upper Extremities Muscle Bulk/Involuntary Movements: No Involuntary Movements; negative Muscle Atrophy Sensation: Light Touch Intact, Pain/Temperature Intact, Vibration Intact and Proprioception Intact Coordination: Normal; negative Limited Balance, Dysdiadochokinesia, Finger-Nose Abnormal or Heel-Awad Abnormal Deep Tendon Reflexes: Rt Triceps: 2+, Lt Triceps: 2+, Rt Biceps: 2+, Lt Biceps: 2+, Rt Brachioradialis: 2+, Lt Brachioradialis: 2+, Rt Patellar: 2+, Lt Patellar: 2+, Rt Ankle: 2+ and Lt Ankle: 2+ Special Tests: negative Babinski Present Gait: Normal Station and Gait Results & Data ([facility]) Vital Signs (Past 12 Hours) Vital Signs Temp Pulse Pulse Resp BP Pulse Ox O2 Del Method 05/23/22 07:33 36.6 C 73 18 162/66 H 98 Nasal Cannula 05/23/22 07:09 63 16 99 Nasal Cannula O2 Flow Rate 05/23/22 07:33 2 05/23/22 07:09 2 Laboratory Results Sodium 135, potassium 5.5, BUN 81, creatinine 1.59, glucose 122, calcium 8.[address] of the head completed yesterday negative for hemorrhage or acute process, there was evidence of atrophy and chronic microvascular ischemic disease. MRI of the brain completed as well, negative for acute or subacute infarct, no evidence of hemorrhage. No acute process. There was mild atrophy as well as moderate chronic small vessel ischemic disease. MRA of the head negative for occlusion or vascular lesion. Noncontrast MRA of the neck technically compromised although no stenosis or significant vascular lesion identified. I reviewed the images as well as the radiologist's interpretation of these tests and agree with these findings. An echocardiogram completed on May 17, 2022 revealed normal left ventricular size, mild concentric left ventricular hypertrophy, EF 60 to 65%, no regional wall motion abnormalities, normal right ventricular size and function, mild to moderate mitral regurgitation, grade 1 diastolic dysfunction, small pericardial effusion without signs of tamponade, no significant change compared previous echo done in March 2019. Borderline left atrial enlargement noted. Coding Level of Care Code 87039 Initial Inpt Care Lvl 2 Diagnoses Acute severe vertigo R42 Pre-syncope R55
[2022-05-23] MEDS ORDERED: PATIROMER CALCIUM SORBITEX 8.4 GM PACK PO ONE ×3 (10:06→19:00)
[2022-05-23] MEDS ORDERED: guaiFENesin/CODEINE 100MG/10MG 5ML UDC PO PRN (16:23)
--- NOTE | 2022-05-23 19:58 | Hospitalist Progress Note ---
Date of Service May 23, 2022 Assessment & Plan (1) Hyperkalemia: Plan: 5.5 this am - patiromer x 1 now repeat level this afternoon and treat accordingly she is not on any meds that would cause high K she had recent KANU in the setting of CKD stage 4 - suspect K dino in the face of such BMP in am (2) Acute severe vertigo: Plan: Evening of 05/21/22 - duration uncertain. Acute vertigo with visual disturbance + ataxia. Worrisome for posterior circulation TIA vs cerebrovasospasm vs BP-related vs other. Added asa 81mg to her Eliquis. CT head negative. MRI brain negative for acute or old CVA. MRA head/neck without occlusions, aneurysm, dissection, etc. Recent echo without thrombus. Has known PAF but is already on eliquis. [facility] neurology consult appreciated. They advise ongoing asa 81mg daily in addition to her eliquis. Cont statin. Hydralazine titrated again today for uncontrolled HTN. (3) Right lower lobe pneumonia: Plan: Resolving radiographically and improving clinically. Completed 7 days of IV/PO abx. (initially was on rocephin and had 5 days of such; then cefdinir x 2 days; finished 5-day course zithroma). has concomitant COPD exacerbation - see below. + blood culture likely contamination. cont supportive care, mucolytics, pulmonary toilet, NC O2, etc. cont tessalon TID. cont NaCL nebs BID. appreciate speech therapy consultation -- no obvious aspiration at this time. (4) COPD exacerbation: Plan: IMPROVED/resolved. Passed 2-step ambulatory o2 test today. solumedrol changed to PO dexamethasone and weaning (start 4mg tomorrow). cont scheduled duonebs QID. cont incentive spirometry. cont flutter valve. cont NaCl nebs BID. sputum cx negative. cont home inhalers. most recent cxr with nearly-resolved RLL pneumonia/infiltrate. patient is bothered by the cough - stop mucinex, try robittusin ac prn. counseled her that the cough may continue another 1-2 weeks before full resolution. (5) Acute on chronic diastolic (congestive) heart failure: Plan: resolved. diuretics stopped. I do believe she was over-diuresed early in admission leading to her KANU. appreciate cardiology consultation. echo findings noted. (6) Elevated troponin: Plan: 2nd to myocardial demand ischemia. no ACS suspected. appreciate cardiology consultation. (7) History of pulmonary embolism: Plan: noted. cont Eliquis. (8) Paroxysmal atrial fibrillation: Plan: brief run of PAT earlier this week but no PAF seen on tele over 5+ days. cont coreg BID. cont eliquis. (9) Squamous cell lung cancer: Plan: history of - Right lower lobe - s/p RLL lobectomy. decreased BS in the right base likely combination of prior lobectomy & her current pneumonia. (10) Hyperlipidemia: Plan: cont statin therapy. (11) Hypertension: Plan: uncontrolled. cont coreg. cont hydralazine but increase to 75mg TID. acute elevations may be worsened by steroid therapy. (12) CKD (chronic kidney disease), stage III: Plan: stage 3b with mild KANU - likely overdiuresis gave 500cc of fluid this weekend and creatinine improved with such bmp am (13) Coronary artery disease: Plan: no ischemic symptoms at this time. cont BB cont statin (14) Positive blood culture: Plan: 11/02 from admission -- likely contaminant. coag neg staph. no Rx needed. (15) DVT prophylaxis: Plan: eliquis BID (16) Hyperglycemia: Plan: no formal dx of DM but BSGs have been high in setting of her illness & steroids. cont BSGs ac/hs. cont novolog SSI. Hba1c 5.5% diet - DM diet. (17) KANU (acute kidney injury): Plan: improved s/p IV fluids Cr now 1.5 today (baseline) Plan left message for pt's daughter on her voicemail several times this past week including today. if stable overnight, and if high K is resolved, then can d/c home on Monday Admission and Anticipated Discharge Date Admission Date: May 16, 2022 Subjective no recurrent episodes of ataxia/vertigo/visual change steady on feet walking well no dyspnea with activity only complaint is cough - scantly productive (had some sputum after her NaCl neb this am) "I'm ready to go home" Review of Systems Review of Systems: gen - no fevers ; eating well cv - no chest pain or orthopnea pulm - no dyspnea at rest or with exertion GI - no pain/nausea neuro - no headache, ataxia, vertigo, etc Physical Exam Physical Exam: gen - NAD, looks good mouth - MMM, no thrush neck - no JVD heart - RRR, s1 s2 lungs - CTA b/l; decreased BS right base only - airation wnl otherwise; no wheezes; no crackles; no increased work of breathing abd - soft NT ND BS+ ext - no edema, pulses 2+ b/l psych - a/o x 3 Results & Data Results & Data ([facility]) Vital Signs (Past 12 Hours) Vital Signs Temp Pulse Pulse Pulse Pulse Pulse Resp 05/23/22 19:18 77 18 05/23/22 17:29 84 88 73 05/23/22 14:48 67 18 05/23/22 14:28 36.4 C L 69 18 05/23/22 14:08 75 05/23/22 10:58 74 16 Resp Resp Resp BP Pulse Ox Pulse Ox Pulse Ox 05/23/22 19:18 94 05/23/22 17:29 18 18 18 94 93 05/23/22 14:48 98 05/23/22 14:28 164/72 H 98 05/23/22 14:08 165/72 H 96 05/23/22 10:58 99 Pulse Ox O2 Del Method O2 Flow Rate 05/23/22 19:18 Room Air 05/23/22 17:29 96 05/23/22 14:48 Nasal Cannula 2 05/23/22 14:28 Nasal Cannula 2 05/23/22 14:08 Nasal Cannula 2 05/23/22 10:58 Nasal Cannula 2 Laboratory Results Laboratory Results - last 24 hr 05/22/22 05/23/22 05/23/22 21:05 06:03 08:01 Sodium 135 L Potassium 5.5 H Chloride 106 Carbon Dioxide 25 Anion Gap 4 BUN 81 H Creatinine 1.59 H Est Cr Clr Drug Dosing 25.1 Est GFR ( Amer) 34.4 Est GFR (Non-Af Amer) 29.7 BUN/Creatinine Ratio 50.9 H Glucose 122 H POC Glucose 226 H 109 H Calcium 8.7 05/23/22 05/23/22 05/23/22 11:48 15:33 17:19 Sodium Potassium 5.6 H Chloride Carbon Dioxide Anion Gap BUN Creatinine Est Cr Clr Drug Dosing Est GFR ( Amer) Est GFR (Non-Af Amer) BUN/Creatinine Ratio Glucose POC Glucose 143 H 138 H Calcium PG Care Time/CCT Total # of Minutes Spent Total Time Spent with Patient: Total time spent is greater than 50% in coordination of care (as documented) at patient's floor/unit and/or counseling patient: Coding Level of Care Code 93030 Subseq Hosp Care Lvl 2 Diagnoses Hyperkalemia E87.5 Acute severe vertigo R42 Right lower lobe pneumonia J18.9 COPD exacerbation J44.1 Acute on chronic diastolic (congestive) heart failure I50.33 Elevated troponin R77.8 History of pulmonary embolism Z86.711 Paroxysmal atrial fibrillation I48.0 Squamous cell lung cancer C34.91 Laterality: right Hyperlipidemia E78.5 Hyperlipidemia type: unspecified Hypertension I10 Hypertension type: essential hypertension CKD (chronic kidney disease), stage III N18.3 Coronary artery disease I25.10 Associated angina: without angina Coronary Disease-Associated Artery/Lesion type: [place] artery [place] vs. transplanted heart: [place] heart Positive blood culture R78.81 DVT prophylaxis Z29.9 Hyperglycemia R73.9 KANU (acute kidney injury) N17.9 (1) Coronary artery disease Associated angina: without angina Coronary Disease-Associated Artery/Lesion type: [place] artery [place] vs. transplanted heart: [place] heart Qualified Code(s): I25.10 - Atherosclerotic heart disease of [place] coronary artery without angina pectoris (2) Hyperlipidemia Hyperlipidemia type: unspecified Qualified Code(s): E78.5 - Hyperlipidemia, unspecified (3) Squamous cell lung cancer Laterality: right Qualified Code(s): C34.91 - Malignant neoplasm of unspecified part of right bronchus or lung (4) Hypertension Hypertension type: essential hypertension Qualified Code(s): I10 - Essential (primary) hypertension
[2022-05-23] MEDS: SIMVASTATIN 40 MG TAB PO SCH (20:23)
[2022-05-23] MEDS ORDERED: hydrALAZINE HCL 25 MG TAB PO ONE (20:45)
[2022-05-24] MEDS ORDERED: ALBUT/IPRATROP 3MG/0.5MG NEB 3 ML VIAL NEB PRN (01:23)
[2022-05-24] MEDS ORDERED: PATIROMER CALCIUM SORBITEX 8.4 GM PACK PO STA (04:38)
[2022-05-24] MEDS: allopurinoL 100 MG TAB PO SCH (08:01)
[2022-05-24] MEDS: ASPIRIN 81 MG ECTAB PO SCH (08:01)
[2022-05-24] MEDS: hydrALAZINE TAB 50 MG TAB PO SCH ×2 (08:01→15:46)
[2022-05-24] MEDS: APIXABAN 2.5 MG TAB PO SCH (08:02)
[2022-05-24] MEDS: carvediloL 25 MG TAB PO SCH (08:02)
[2022-05-24] MEDS: FLUTICASONE/VILANTEROL 100/25MCG 14 PUFFS/INHALER INH SCH (08:03)
[2022-05-24] MEDS: UMECLIDINIUM BROMIDE 62.5MCG/BLISTER 7 PUFFS/INHALER INH SCH (08:03)
[2022-05-24] MEDS: BENZONATATE 100 MG CAPSULE PO SCH ×2 (08:07→15:46)
[2022-05-24 08:38] LABS: BUN Creatinine Ratio 50.9 (10-20); Calcium 9.2 mg/dl (8.5-10.1); Creatinine Clr Calc Pharmacy 24.8 ml/min; Est GFR (African American) 33.9 ml/min; Est GFR (Non-African American) 29.3 ml/min; Magnesium 2.4 mg/dl (1.7-2.4); Potassium 5.6 mmol/L (3.5-5.1)
[2022-05-24] MEDS ORDERED: dexAMETHasone 4 MG TAB PO SCH (09:00)
[2022-05-24] MEDS: INSULIN ASPART PER UNIT SC SCH ×2 (09:27→13:03)
[2022-05-24] MEDS ORDERED: FUROSEMIDE 20 MG TAB PO SCH (10:45)
--- NOTE | 2022-05-24 12:34 | Electrocardiogram Report ---
Test Reason : Blood Pressure : / mmHG Vent. Rate : 070 BPM Atrial Rate : 070 BPM P-R Int : 178 ms QRS Dur : 082 ms QT Int : 394 ms P-R-T Axes : -21 034 069 degrees QTc Int : 425 ms Normal sinus rhythm Normal ECG When compared with ECG of 16-MAY-2022 14:15, Criteria for Septal infarct are no longer Present Confirmed by Abebe Dick ([id number]) on 05/24/2022 12:34:27 PM Referred By: REFERRED SELF Confirmed By:Abebe Dick
[2022-05-24 14:52] LABS: BUN Creatinine Ratio 49.1 (10-20); Calcium 9.5 mg/dl (8.5-10.1); Creatinine Clr Calc Pharmacy 24.2 ml/min; Est GFR (African American) 32.9 ml/min; Est GFR (Non-African American) 28.4 ml/min; Potassium 5.3 mmol/L (3.5-5.1)
--- NOTE | 2022-05-24 15:04 | Discharge Summary ---
Date of Service May 24, 2022 Admission HPI Per Admitting Provider This is an 81-year-old female with past medical history CAD, paroxysmal atrial fibrillation, previous VTE, COPD that presents today complaining of shortness of breath and CORONA. Patient is a limited historian, countered by daughter. Patient told me that approximately 48 hours prior to her presentation she started with some shortness of breath. On further questioning, this seems to be more dyspnea on exertion as patient became winded with even minimal exertion. This continued to worsen over the course of those 2 days which is why she presented to the emergency room. She also noted some vague chest pressure in t he left lower sternal area without radiation. This was nonpleuritic. Was not exertional. Patient did notice a loose cough with some sputum. She does not typically weigh self. She did not notice any lower extremity edema. She also denied any fevers or chills or other infectious symptoms. Shortness of breath continue to worsen which prompted her hospitalization. Of note, she typically does 2 L nasal cannula oxygen. O2 sat here was 98% on 2 L. I did note that her blood pressure was elevated to 180/90, this is consistent on recheck. Discharge Data Allergies Allergy/AdvReac Type Severity Reaction Status Date / Time chlorhexidine Allergy Mild HIVES,RED Verified 05/16/22 19:28 RASH Consultations 05/16/22 16:56 ED Decision to Admit Stat 05/16/22 19:59 Consult Cardiology Routine 05/23/22 08:00 Consult Neurology Routine Ordered Studies 05/16/22 18:38 CT chest diagnostic wo con Stat 05/22/22 13:22 CT Brain [CT head/brain wo con] Routine 05/22/22 14:01 MR angio head wo con Routine MR angio neck wo con Routine MR brain wo con Routine Hospital Course (1) Hyperkalemia: 5.5 this am - patiromer x 1 now repeat level this afternoon and treat accordingly she is not on any meds that would cause high K she had recent KANU in the setting of CKD stage 4 - suspect K dino in the face of such BMP in am (2) Acute severe vertigo: Evening of 05/21/22 - duration uncertain. Acute vertigo with visual disturbance + ataxia. Worrisome for posterior circulation TIA vs cerebrovasospasm vs BP-related vs other. Added asa 81mg to her Eliquis. CT head negative. MRI brain negative for acute or old CVA. MRA head/neck without occlusions, aneurysm, dissection, etc. Recent echo without thrombus. Has known PAF but is already on eliquis. [facility] neurology consult appreciated. They advise ongoing asa 81mg daily in addition to her eliquis. Cont statin. Hydralazine titrated again today for uncontrolled HTN. (3) Right lower lobe pneumonia: Resolving radiographically and improving clinically. Completed 7 days of IV/PO abx. (initially was on rocephin and had 5 days of such; then cefdinir x 2 days; finished 5-day course zithroma). has concomitant COPD exacerbation - see below. + blood culture likely contamination. cont supportive care, mucolytics, pulmonary toilet, NC O2, etc. cont tessalon TID. cont NaCL nebs BID. appreciate speech therapy consultation -- no obvious aspiration at this time. (4) COPD exacerbation: IMPROVED/resolved. Passed 2-step ambulatory o2 test today. solumedrol changed to PO dexamethasone and weaning (start 4mg tomorrow). cont scheduled duonebs QID. cont incentive spirometry. cont flutter valve. cont NaCl nebs BID. sputum cx negative. cont home inhalers. most recent cxr with nearly-resolved RLL pneumonia/infiltrate. patient is bothered by the cough - stop mucinex, try robittusin ac prn. counseled her that the cough may continue another 1-2 weeks before full resolution. (5) Acute on chronic diastolic (congestive) heart failure: resolved. diuretics stopped. I do believe she was over-diuresed early in admission leading to her KANU. appreciate cardiology consultation. echo findings noted. (6) Elevated troponin: 2nd to myocardial demand ischemia. no ACS suspected. appreciate cardiology consultation. (7) History of pulmonary embolism: noted. cont Eliquis. (8) Paroxysmal atrial fibrillation: brief run of PAT earlier this week but no PAF seen on tele over 5+ days. cont coreg BID. cont eliquis. (9) Squamous cell lung cancer: history of - Right lower lobe - s/p RLL lobectomy. decreased BS in the right base likely combination of prior lobectomy & her current pneumonia. (10) Hyperlipidemia: cont statin therapy. (11) Hypertension: uncontrolled. cont coreg. cont hydralazine but increase to 75mg TID. acute elevations may be worsened by steroid therapy. (12) CKD (chronic kidney disease), stage III: stage 3b with mild KANU - likely overdiuresis gave 500cc of fluid this weekend and creatinine improved with such bmp am (13) Coronary artery disease: no ischemic symptoms at this time. cont BB cont statin (14) Positive blood culture: 11/02 from admission -- likely contaminant. coag neg staph. no Rx needed. (15) DVT prophylaxis: eliquis BID (16) Hyperglycemia: no formal dx of DM but BSGs have been high in setting of her illness & steroids. cont BSGs ac/hs. cont novolog SSI. Hba1c 5.5% diet - DM diet. (17) KANU (acute kidney injury): improved s/p IV fluids Cr now 1.5 today (baseline) Plan left message for pt's daughter on her voicemail several times this past week including today. if stable overnight, and if high K is resolved, then can d/c home on Monday Discharge Plan Discharge Items Patient Disposition: Home - Self-Care Reason For Visit: CORONA Discharge Diagnosis: COPD Exacerbation, Pneumonia, hyperkalemia, Acute kidney injury, TIA Condition on Discharge: Good Activity: As commented below Lifting: Gradually increase as tolerated Bathing: No limitations Exercise/Sports: Gradually increase as tolerated Non-emergency contact: Primary Care Provider Call non-emergency contact if: you have any medication questions, your symptoms worsen and you have a fever Follow-up/Referrals: Ritu Pacheco MD [Primary Care Provider] - 05/31/22 4:15 pm Diet: Heart Healthy and Low Potassium (2gm) Addtl Attending Provider Instructions: Please finish out the taper of steroids for your COPD with dexamethasone. You already finished out a course of antibiotics for your pneumonia. You should have a chest xray in 4-6 weeks to ensure your pneumonia has cleared up. Your hydralazine dose was increased for improved blood pressure control and you had a baby aspirin 81mg daily added on for a mini stroke or TIA. Your potassium levels were elevated-this was treated with medication and also by restarting your usual dose of lasix which had been held for a few days. Please have your PCP check your potassium levels in 1 week. Risk Factors for Stroke: You can reduce your chances of stroke by working with your medical provider to adopt a healthy lifestyle. Some specific ways to lower your chance of stroke are: * If you are a smoker, now is the time to stop smoking cigarettes * If you are diabetic, improve the control of your blood sugars * Avoid excessive amounts of alcohol * Control high blood pressure * Lose weight if you are overweight * Be sure to lead an active lifestyle * Eat a healthy diet low in salt, cholesterol and fat You should know about other risk factors for stroke that you are unable to control. These include: * Age 55 years or older * Male gender * Certain racial groups: , or / * Family History of Stroke, Mini stroke or Heart Attack * Sickle Cell Disease Follow Up: It is important for you to keep your follow up appointments with your medical provider. Who to Call and When: Medical Emergencies: Call 911 immediately if you experience any of the following warning signs and symptoms of Stroke: * Sudden numbness or weakness of the face, arm or leg, especially on one side of the body * Sudden confusion, trouble speaking or understanding * Sudden trouble seeing in one or both eyes * Sudden trouble walking, dizziness, loss of balance or coordination * Sudden severe headache with no cause Do not delay calling 911 if you experience any warning signs or symptoms of a stroke. Delay in seeking medical attention may affect what treatments can be given to you. . Pending Studies at Discharge: No Stand-Alone Forms: My [facility], Smoking Cessation Medications and DC Order Prescriptions: New ipratropium-albuterol 0.5 mg-3 mg(2.5 mg base)/3 mL Solution For Nebulization 3 ml NEB QID PRN (Reason: shortness of breath or wheezing) Qty: 180 0RF hydralazine 50 mg Tablet 75 mg PO TID 30 Days Qty: 135 0RF aspirin 81 mg Tablet,Delayed Release (Dr/Ec) 81 mg PO QAM Qty: 30 0RF Rx Instructions: OTC dexamethasone 2 mg tablet 4 mg PO DAILY Qty: 6 0RF Rx Instructions: x 2 days then 2mg daily x 2 days, then stop benzonatate 100 mg Capsule 100 mg PO TID PRN (Reason: cough) Qty: 30 0RF codeine-guaifenesin [Guaiatussin AC] 10-100 mg/5 mL Liquid 5 ml PO Q6H PRN (Reason: cough) Qty: 118 0RF Continued nystatin 100,000 unit/gram cream 1 applic TOP BID PRN (Reason: .) Qty: 15 2RF simvastatin 40 mg tablet 40 mg PO HS Qty: 90 3RF carvedilol 25 mg tablet 25 mg PO BID Qty: 180 3RF Rx Instructions: must administer with a meal/food Breo Ellipta 100-25 mcg/dose blister with device 1 inh inhalation DAILY 90 Days Qty: 3 3RF ergocalciferol (vitamin D2) 1,250 mcg (50,000 unit) capsule 50,000 unit PO MONTHLY Qty: 3 3RF furosemide [Lasix] 20 mg tablet 20 mg PO QAM Qty: 30 5RF allopurinol 100 mg tablet 100 mg PO DAILY Qty: 30 5RF apixaban 2.5 mg tablet 2.5 mg PO BID Qty: 180 3RF (DME) Oxygen Home Liters Per Minute See Dose Instructions .ROUTE .MEDSUPPLY Qty: 1 0RF Dose Instruction: As directed Rx Instructions: As directed albuterol sulfate [Ventolin HFA] 90 mcg/actuation HFA aerosol inhaler 1 puffs INH Q6H PRN (Reason: Shortness Of Breath) ferrous sulfate 325 mg (65 mg iron) Tablet 325 mg PO QAM cyanocobalamin (vitamin B-12) [Vitamin B-12] 1,000 mcg Tablet 1,000 mcg PO QAM docusate sodium 100 mg capsule 100 mg PO DAILY PRN (Reason: Constipation) Spiriva Respimat 2.5 mcg/actuation mist 1 inh inhalation BID Discontinued hydralazine 25 mg tablet 25 mg PO BID Qty: 180 1RF prednisone 10 mg tablet See Rx Instructions PO DAILY 8 Days Qty: 20 0RF Rx Instructions: 4 tabs daily for 2 days, 3 tabs daily for 2 days,2 tab daily for 2 day , 1 tab daily for 2 days and then stop Discharge Orders: Discharge Order (Routine); Ordered 05/24/22 Ordered By: Danya Dowling Admission Data Admit Date/Time: 05/16/22 18:38 Attending Provider: Danya Dowling Admit Provider: Philip Marrufo Primary Care Provider: Ritu Pacheco V. Other Providers: Philip Marrufo ; Vj Zuniga ; Anshul Flannery Coding Diagnoses Hyperkalemia E87.5 Acute severe vertigo R42 Right lower lobe pneumonia J18.9 COPD exacerbation J44.1 Acute on chronic diastolic (congestive) heart failure I50.33 Elevated troponin R77.8 History of pulmonary embolism Z86.711 Paroxysmal atrial fibrillation I48.0 Squamous cell lung cancer C34.91 Laterality: right Hyperlipidemia E78.5 Hyperlipidemia type: unspecified Hypertension I10 Hypertension type: essential hypertension CKD (chronic kidney disease), stage III N18.3 Coronary artery disease I25.10 Coronary Disease-Associated Artery/Lesion type: [place] artery [place] vs. transplanted heart: [place] heart Associated angina: without angina Positive blood culture R78.81 DVT prophylaxis Z29.9 Hyperglycemia R73.9 KANU (acute kidney injury) N17.9
== END 2022-05-24 17:10 | disposition home or self-care (01) | DRG 190 ==
LOC: ED 14:05 → 2N 18:38 → SUATTDRO 18:38 → 2N 19:19 → 3W 05-21 18:30

== ENCOUNTER 2022-09-17 12:06 | Observation (INO) ==
[2022-09-17] MEDS ORDERED: ALBUT/IPRATROP 3MG/0.5MG NEB 3 ML VIAL NEB STA ×2 (12:22→13:09)
[2022-09-17] MEDS ORDERED: predniSONE 50 MG TAB PO ONE (12:22)
--- NOTE | 2022-09-17 12:36 | XRay Report ---
XR chest 1V portable CLINICAL HISTORY: Chest pain. COMPARISON STUDY: Chest CT May 16, 2022. Chest radiograph June 08, 2022. FINDINGS: Postoperative findings within the right hemithorax are noted. Right lung volume loss has li martine increased. There is no pneumothorax. A small right pleural effusion is increased in size since p rior exam. Right basilar opacity has increased. In addition, right midlung and left basilar nodular a irspace opacities have developed. There is no evidence for pulmonary edema. IMPRESSION: 1. Increase in right lower lung airspace opacity with suspected volume loss. This could reflect pneum onia or atelectasis. Radiographic follow-up is recommended. 2. Interval development of right midlung and left basilar nodular opacities. These are likely infecti ous however radiographic follow up to ensure resolution is recommended to exclude the possibility of underlying pulmonary lesions. ACT 112: Negative or not required by law. Electronically signed by: Gerardo Pires M.D. 09/17/2022 12:34 PM
--- NOTE | 2022-09-17 12:37 | Emergency Department Note ---
History of Present Illness General Chief Complaint: Cough Stated Complaint: COUGH,SOB,CONGESTION Time Seen by Provider: 09/17/22 12:14 History of Present Illness Provider Complaint: + cough and + nasal congestion Onset (ago): 1 day(s) Duration: + constant Severity: moderate Able to tolerate fluids by mouth: Yes Associated symptoms: + chills, + myalgias, + nasal congestion, + chest pain, + shortness of breath and + diarrhea; no stiff neck, no nausea or no vomiting Home Medications Medication Instructions Recorded Confirmed Type ferrous sulfate 325 mg (65 mg 325 mg PO QAM 12/23/18 09/17/22 History iron) tablet cyanocobalamin (vitamin B-12) 1,000 mcg PO QAM 05/02/19 09/17/22 History 1,000 mcg tablet (Vitamin B-12) Oxygen Home #1 ea 05/16/19 09/02/22 Rx docusate sodium 100 mg capsule 100 mg PO DAILY PRN Constipation 06/05/19 09/17/22 History albuterol sulfate 90 mcg/actuation 1 puffs inhalation Q6H PRN 07/31/19 09/17/22 History aerosol inhaler (Ventolin HFA) Shortness Of Breath nystatin 100,000 unit/gram topical 1 applic topical BID PRN . #15 10/22/20 09/17/22 Rx cream grams carvedilol 25 mg tablet 25 mg PO BID #180 tabs 09/29/21 09/17/22 Rx fluticasone furoate 100 1 inh inhalation DAILY 90 days #3 11/16/21 09/17/22 Rx mcg-vilanterol 25 mcg/dose Inhalers inhalation powder (Breo Ellipta) ergocalciferol (vitamin D2) 1,250 50,000 unit PO MONTHLY #3 caps 12/27/21 09/17/22 Rx mcg (50,000 unit) capsule furosemide 20 mg tablet (Lasix) 20 mg PO QAM #30 tabs 03/25/22 09/17/22 Rx allopurinol 100 mg tablet 100 mg PO DAILY #30 tabs 05/10/22 09/17/22 Rx apixaban 2.5 mg tablet 2.5 mg PO BID #180 tabs 05/11/22 09/17/22 Rx tiotropium bromide 2.5 1 inh inhalation BID 05/16/22 09/17/22 History mcg/actuation mist for inhalation (Spiriva Respimat) aspirin 81 mg tablet,delayed 81 mg PO QAM #30 tabs 05/24/22 09/17/22 Rx release ipratropium 0.5 mg-albuterol 3 mg 3 ml NEB QID PRN shortness of 05/24/22 09/17/22 Rx (2.5 mg base)/3 mL nebulization breath or wheezing #180 mL soln simvastatin 40 mg tablet 40 mg PO HS #90 tabs 06/07/22 09/17/22 Rx hydralazine 50 mg tablet 75 mg PO TID 30 days #135 tabs 07/06/22 09/17/22 Rx Allergies Allergy/AdvReac Type Severity Reaction Status Date / Time chlorhexidine Allergy Mild HIVES,RED Verified 09/17/22 12:28 RASH Past Med/Surg History Medical History Acute on chronic diastolic (congestive) heart failure Acute respiratory failure with hypoxia Acute severe vertigo Acute upper abdominal pain Anemia Cardiomyopathy Cellulitis CKD (chronic kidney disease) BASELINE CREATININE 1.6-1.8 PER CHART REVIEW COPD (chronic obstructive pulmonary disease) COPD exacerbation Coronary artery disease NON-OBSRTUCTIVE Cough Dyspnea Edema due to hypoalbuminemia Elevated serum creatinine Fall Hand pain History of abdominal aortic aneurysm (AAA) S/P REPAIR 2016 History of GA (myocardial infarction) 2016= MEDICALLY MANAGED Hyperglycemia Hyperlipidemia Hypertension Knee pain, left Left wrist pain Lung nodule Mitral regurgitation Multinodular goiter Nasal bleeding Nocturnal hypoxemia 2L AT HS Osteoarthritis Pre-syncope Pulmonary embolism RECURRENT (~2012) ON COUMADIN 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 Right lower lobe pneumonia Sacroiliitis Secondary renal hyperparathyroidism Shingles Takotsubo syndrome 2016 URI (upper respiratory infection) Vitamin D deficiency Surgical History AAA (abdominal aortic aneurysm) S/P REPAIR 2016 History of bladder surgery TURBT History of bronchoscopy EBUS, Navigational bronch with biopsy: 02/21/19: Grade 2 view, MAC 3, ETT 8.5 History of lobectomy of lung History of tooth extraction 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) Family History Sister Skin cancer Malignant neoplasm of bone Mother Cancer Daughter Diabetes Hypertension Brother Skin cancer Other Dyslipidemia Denies family history of Colon cancer Ovarian cancer Prostate cancer Kidney disease Myocardial infarction Breast cancer Lung cancer Stroke Social History Smoking Status: Never smoker Cigarettes Per Day: 30; Second Hand Exposure: No; Hx Alcohol Use: No Hx Substance Use: No Preferred Language: Icelandic Communication Ability: Effective Visual Impairment: Limited Hearing Ability: Normal Cost Report Clerk Required: No Beliefs That Will Affect Care: None marital status: / Current Living Situation: Alone current occupational status: retired How many Children do You have: 1 Feels Safe at Home: Yes Childhood Exposure to Second-Hand Smoke: Yes caffeine: Yes Dental Care, Regularly: No Physical Activity Frequency: Does not Exercise Seatbelt Use: always Sunscreen Use: No Assistive Devices: Denture - Upper, Glasses, Oxygen - Continuous and Walker Review of Systems A total of 10 systems reviewed and were otherwise negative Physical Exam Vital Signs: Vital Signs - 24 hr 09/17/22 12:08 09/17/22 13:10 09/17/22 13:10 Temperature 36.4 C L Temperature Source Temporal Artery Sc an Pulse Rate 84 Pulse Rate [Finger ] Pulse Rhythm [Fing er] Pulse Strength [Fi nger] Respiratory Rate 18 Respiratory Effort / Characteristics Non-Labored Respiratory Depth Normal Respiratory Patter n Regular Blood Pressure 106/55 L Blood Pressure [Ri ght Arm] Blood Pressure Kaylynn n 72 Blood Pressure Kaylynn n [Right Arm] Blood Pressure Pos ition [Right Arm] Pulse Oximetry 91 86 L 97 Oxygen Delivery Me thod Room Air Room Air Nasal Cannula Oxygen Flow Rate 2 Sepsis Recent Feve r Within 48 Hours No Sepsis New/Unexpla ined Change in Men rafaela Status N/A Sepsis Action Take n by Nursing No Action Required 09/17/22 14:06 Temperature Temperature Source Pulse Rate Pulse Rate [Finger ] 86 Pulse Rhythm [Fing er] Regular Pulse Strength [Fi nger] Normal Respiratory Rate 22 Respiratory Effort / Characteristics Non-Labored Respiratory Depth Normal Respiratory Patter n Regular Blood Pressure Blood Pressure [Ri ght Arm] 156/75 H Blood Pressure Kaylynn n Blood Pressure Kaylynn n [Right Arm] 102 Blood Pressure Pos ition [Right Arm] Lying Pulse Oximetry 94 Oxygen Delivery Me thod Nasal Cannula Oxygen Flow Rate 2 Sepsis Recent Feve r Within 48 Hours Sepsis New/Unexpla ined Change in Men rafaela Status Sepsis Action Take n by Nursing Physical Exam: Physical Exam GENERAL: She is oriented to person, place, and time. She appears well-developed and well-nourished. She does not appear distressed. HENT: Exam performed. -Head: Normocephalic and atraumatic. -Right Ear: External ear normal. No mastoid tenderness. -Left Ear: External ear normal. No mastoid tenderness. -Mouth/Throat: The oropharynx is clear and moist. No trismus in the jaw. No dental abscesses or uvula swelling. No oropharyngeal exudate or tonsillar abscesses. EYES: Conjunctivae and EOM are normal. Pupils are equal, round, and reactive to light. Right eye exhibits no discharge. Left eye exhibits no discharge. No scleral icterus. NECK: Normal range of motion. Neck supple. No JVD present. No spinous process tenderness present. No carotid bruit present. No rigidity. No tracheal deviation and normal range of motion present. No Brudzinski's sign and no Kernig's sign noted. CV: Normal rate, regular rhythm, normal heart sounds and intact distal pulses. There is no peripheral edema. Palpable radial pulses bue. PULM/CHEST: Diminished breath sounds over the right lower lung. ABD: The abdomen is soft. Bowel sounds are normal. She has no distension. No mass is present. There is no tenderness. There is no rebound, no guarding, no De Leon's sign and no tenderness at McBurney's point. Rovsig negative MUSC/SKEL: Normal range of motion. There is no peripheral edema, tenderness or deformity. LYMPH: No cervical adenopathy. NEURO: She is alert and oriented to person, place, and time. She has normal strength. No cranial nerve deficit or sensory deficit. Coordination and gait normal. GCS eye subscore is 4. GCS verbal subscore is 5. GCS motor subscore is 6. Cerebellar tests wnl. SKIN: Skin is warm and dry. She is not diaphoretic. PSYCH: She has a normal mood and affect. Behavior is normal. Judgment and thought content normal. Course Course 1214: The patient was evaluated in room B8. A complete history and physical exam was performed Cardiac monitoring: An order was placed for continuous cardiac monitoring. The monitor shows a rate of 80 with sinus rhythm 1310: Patient became hypoxic on ambulatory trial. Patient was very winded supplemental oxygen was applied to her which improved her oxygen saturation. Patient was given an additional DuoNeb treatment. 1349: Vital signs stable on supplemental oxygen. Labs show a white blood cell count of 11.1. Hemoglobin 10.7. VBG within normal limits. BUN 39 creatinine 1.65 which appears to be at the patient's baseline. Troponin negative. Chest x-ray does show right-sided pneumonia. COVID screen is pending. Patient does have a moderate CURB 65 score and a high PSI score. [facility] Discussed the case with Donal Jay PA-C and the patient will be admitted to Dr. Blake service. CURB-65 Score for Pneumonia Severity from [facility].Android App Review Source on 09/17/2022 All calculations should be rechecked by clinician prior to use RESULT SUMMARY: 2 points Moderate risk group: 6.8% 30-day mortality. Consider inpatient treatment or outpatient with close followup. INPUTS: Confusion > 0 = No BUN > 19 mg/dL (> 7 mmol/L urea) > 1 = Yes Respiratory Rate &ge; 30 > 0 = No Systolic BP < 90 mmHg or Diastolic BP &le; 60 mmHg > 0 = No Age &ge; 65 > 1 = Yes PSI/PORT Score: Pneumonia Severity Index for CAP from [employer]Android App Review Source on 09/17/2022 All calculations should be rechecked by clinician prior to use RESULT SUMMARY: 144 points Risk Class V, 27.0-29.2% mortality. Hospitalization recommended based on risk. INPUTS: Age > 84 years Sex > -10 = Female [facility] resident > 0 = No Neoplastic disease > 30 = Yes Liver disease history > 0 = No CHF history > 10 = Yes Cerebrovascular disease history > 0 = No Renal disease history > 10 = Yes Altered mental status > 0 = No Respiratory rate &ge;30 breaths/min > 0 = No Systolic blood pressure <90 mmHg > 0 = No Temperature <35&deg;C (95&deg;F) or >39.9&deg;C (103.8&deg;F) > 0 = No Pulse &ge;125 beats/min > 0 = No pH <7.35 > 0 = No BUN &ge;30 mg/dL or &ge;11 mmol/L > 20 = Yes Sodium <130 mmol/L > 0 = No Glucose &ge;250 mg/dL or &ge;14 mmol/L > 0 = No Hematocrit <30% > 0 = No Partial pressure of oxygen <60 mmHg or <8 kPa > 0 = No Pleural effusion on x-ray > 0 = No Administered Medications Discontinued Medications Albuterol (Albut/Ipratrop 3mg/0.5mg Neb 3 Ml Vial) 3 ml NEB NOW STA; Protocol Stop: 09/17/22 12:23 Last Admin: 09/17/22 12:33 Dose: 3 ml Documented By: GLADYS Albuterol (Albut/Ipratrop 3mg/0.5mg Neb 3 Ml Vial) 3 ml NEB NOW STA; Protocol Stop: 09/17/22 13:10 Last Admin: 09/17/22 13:14 Dose: 3 ml Documented By: GLADYS Azithromycin (Azithromycin 250 Mg Tab) 500 mg PO NOW ONE Stop: 09/17/22 13:39 Last Admin: 09/17/22 14:00 Dose: 500 mg Documented By: GLADYS Ceftriaxone Sodium (Rocephin) 1,000 mg in 50 mls @ 100 mls/hr IV NOW STA Stop: 09/17/22 14:07 Last Admin: 09/17/22 14:01 Dose: 100 mls/hr Documented By: GLADYS Prednisone (Prednisone 50 Mg Tab) 50 mg PO ONCE ONE Stop: 09/17/22 12:23 Last Admin: 09/17/22 12:33 Dose: 50 mg Documented By: GLADYS Medical Decision Making Laboratory Data Result diagrams: 09/17/22 12:33 09/17/22 12:33 Lab Results 09/17/22 09/17/22 09/17/22 Range/Units 12:33 12:33 12:33 WBC 11.11 H (4.8-10.8) K/ul RBC 3.64 L (3.93-5.22) M/uL Hgb 10.7 L (12.0-16.0) g/dl Hct 32.9 L (34.1-44.9) % MCV 90.4 (80.0-100.0) fL MCH 29.4 (25.0-34.0) pg MCHC 32.5 (32.0-36.0) g/dL RDW Std Deviation 46.2 (36.4-46.3) fL RDW Coeff of Mio 14.0 (11.5-14.5) % Plt Count 264 (130-400) K/uL MPV 9.2 L (9.4-12.3) fL Immature Gran % (Auto) 0.4 % Neut % (Auto) 82.4 % Lymph % (Auto) 10.4 % [place] % (Auto) 5.9 % Eos % (Auto) 0.5 % Baso % (Auto) 0.4 % Neut # (Auto) 9.17 H (1.4-6.5) K/uL Lymph # (Auto) 1.15 L (1.2-3.4) K/uL [place] # (Auto) 0.66 (0.24-0.82) K/uL Eos # (Auto) 0.05 (0-0.50) K/uL Baso # (Auto) 0.04 (0-0.2) K/uL Immature Gran # (Auto) 0.04 H (0.00-0.02) K/uL VBG pH (7.36-7.41) VBG pCO2 (38-50) mmHg VBG pO2 mmHg VBG HCO3 mmol/L VBG O2 Saturation % VBG Base Excess mEq/L Sodium 137 (136-145) mmol/L Potassium 3.5 (3.5-5.1) mmol/L Chloride 100 (98-107) mmol/L Carbon Dioxide 28 (21-32) mmol/L Anion Gap 9 (3-11) BUN 39 H (6-23) mg/dl Creatinine 1.65 H (0.6-1.2) mg/dl Est Cr Clr Drug Dosing 24.9 ml/min Est GFR ( Amer) 32.7 ml/min Est GFR (Non-Af Amer) 28.2 ml/min BUN/Creatinine Ratio 23.6 H (10-20) Glucose 125 H (70-99(Fasting)) mg/dl Calcium 9.5 (8.5-10.1) mg/dl Troponin I High Sens 12.6 D (0-14) pg/ml Lipase 14 (11-82) U/L SARS-CoV-2 (PCR) NEGATIVE (Negative) Influenza Type A (PCR) Negative (Neg) Influenza Type B (PCR) Negative (Neg) RSV (RT-PCR) Negative (Neg) 09/17/22 Range/Units 12:42 WBC (4.8-10.8) K/ul RBC (3.93-5.22) M/uL Hgb (12.0-16.0) g/dl Hct (34.1-44.9) % MCV (80.0-100.0) fL MCH (25.0-34.0) pg MCHC (32.0-36.0) g/dL RDW Std Deviation (36.4-46.3) fL RDW Coeff of Mio (11.5-14.5) % Plt Count (130-400) K/uL MPV (9.4-12.3) fL Immature Gran % (Auto) % Neut % (Auto) % Lymph % (Auto) % [place] % (Auto) % Eos % (Auto) % Baso % (Auto) % Neut # (Auto) (1.4-6.5) K/uL Lymph # (Auto) (1.2-3.4) K/uL [place] # (Auto) (0.24-0.82) K/uL Eos # (Auto) (0-0.50) K/uL Baso # (Auto) (0-0.2) K/uL Immature Gran # (Auto) (0.00-0.02) K/uL VBG pH 7.41 (7.36-7.41) VBG pCO2 47 (38-50) mmHg VBG pO2 42 mmHg VBG HCO3 30 mmol/L VBG O2 Saturation 74.2 % VBG Base Excess 4.3 mEq/L Sodium (136-145) mmol/L Potassium (3.5-5.1) mmol/L Chloride (98-107) mmol/L Carbon Dioxide (21-32) mmol/L Anion Gap (3-11) BUN (6-23) mg/dl Creatinine (0.6-1.2) mg/dl Est Cr Clr Drug Dosing ml/min Est GFR ( Amer) ml/min Est GFR (Non-Af Amer) ml/min BUN/Creatinine Ratio (10-20) Glucose (70-99(Fasting)) mg/dl Calcium (8.5-10.1) mg/dl Troponin I High Sens (0-14) pg/ml Lipase (11-82) U/L SARS-CoV-2 (PCR) (Negative) Influenza Type A (PCR) (Neg) Influenza Type B (PCR) (Neg) RSV (RT-PCR) (Neg) Imaging Data Radiologist's Impression: Chest X-Ray 09/17/22 12:15 XR chest 1V portable CLINICAL HISTORY: Chest pain. COMPARISON STUDY: Chest CT May 16, 2022. Chest radiograph June 08, 2022. FINDINGS: Postoperative findings within the right hemithorax are noted. Right lung volume loss has likely increased. There is no pneumothorax. A small right pleural effusion is increased in size since prior exam. Right basilar opacity has increased. In addition, right midlung and left basilar nodular airspace opacities have developed. There is no evidence for pulmonary edema. IMPRESSION: 1. Increase in right lower lung airspace opacity with suspected volume loss. This could reflect pneumonia or atelectasis. Radiographic follow-up is recommended. 2. Interval development of right midlung and left basilar nodular opacities. These are likely infectious however radiographic follow up to ensure resolution is recommended to exclude the possibility of underlying pulmonary lesions. ACT 112: Negative or not required by law. Electronically signed by: Gerardo Pires M.D. 09/17/2022 12:34 PM ECG Data Indication: SOB/dyspnea Rate (beats per minute): 83 Rhythm: normal sinus Findings: no PVC, no ST depression, no ST elevation or no prolonged QT Additional Comments: QRS 72 MDM Narrative 1214: The patient was evaluated in room B8. A complete history and physical exam was performed Cardiac monitoring: An order was placed for continuous cardiac monitoring. The monitor shows a rate of 80 with sinus rhythm 1310: Patient became hypoxic on ambulatory trial. Patient was very winded supplemental oxygen was applied to her which improved her oxygen saturation. Patient was given an additional DuoNeb treatment. 1349: Vital signs stable on supplemental oxygen. Labs show a white blood cell count of 11.1. Hemoglobin 10.7. VBG within normal limits. BUN 39 creatinine 1.65 which appears to be at the patient's baseline. Troponin negative. Chest x-ray does show right-sided pneumonia. COVID screen is pending. Patient does have a moderate CURB 65 score and a high PSI score. [facility] Discussed the case with Donal Jay PA-C and the patient will be admitted to Dr. Blake service. CURB-65 Score for Pneumonia Severity from [facility] on 09/17/2022 All calculations should be rechecked by clinician prior to use RESULT SUMMARY: 2 points Moderate risk group: 6.8% 30-day mortality. Consider inpatient treatment or outpatient with close followup. INPUTS: Confusion > 0 = No BUN > 19 mg/dL (> 7 mmol/L urea) > 1 = Yes Respiratory Rate &ge; 30 > 0 = No Systolic BP < 90 mmHg or Diastolic BP &le; 60 mmHg > 0 = No Age &ge; 65 > 1 = Yes PSI/PORT Score: Pneumonia Severity Index for CAP from [facility] on 09/17/2022 All calculations should be rechecked by clinician prior to use RESULT SUMMARY: 144 points Risk Class V, 27.0-29.2% mortality. Hospitalization recommended based on risk. INPUTS: Age > 84 years Sex > -10 = Female [facility] resident > 0 = No Neoplastic disease > 30 = Yes Liver disease history > 0 = No CHF history > 10 = Yes Cerebrovascular disease history > 0 = No Renal disease history > 10 = Yes Altered mental status > 0 = No Respiratory rate &ge;30 breaths/min > 0 = No Systolic blood pressure <90 mmHg > 0 = No Temperature <35&deg;C (95&deg;F) or >39.9&deg;C (103.8&deg;F) > 0 = No Pulse &ge;125 beats/min > 0 = No pH <7.35 > 0 = No BUN &ge;30 mg/dL or &ge;11 mmol/L > 20 = Yes Sodium <130 mmol/L > 0 = No Glucose &ge;250 mg/dL or &ge;14 mmol/L > 0 = No Hematocrit <30% > 0 = No Partial pressure of oxygen <60 mmHg or <8 kPa > 0 = No Pleural effusion on x-ray > 0 = No Impression & Plan Pneumonia Discharge Plan Visit Data Chief Complaint: Cough Stated Complaint: COUGH,SOB,CONGESTION ED Provider: Peter Parham Discharge Problem: Pneumonia Patient Disposition: Being Evaluated by Hospitalist Forms Stand Alone Forms: My [facility] Prescriptions Prescriptions: No Action nystatin 100,000 unit/gram cream 1 applic TOP BID PRN (Reason: .) Qty: 15 2RF carvedilol 25 mg tablet 25 mg PO BID Qty: 180 3RF Rx Instructions: must administer with a meal/food Breo Ellipta 100-25 mcg/dose blister with device 1 inh inhalation DAILY 90 Days Qty: 3 3RF ergocalciferol (vitamin D2) 1,250 mcg (50,000 unit) capsule 50,000 unit PO MONTHLY Qty: 3 3RF furosemide [Lasix] 20 mg tablet 20 mg PO QAM Qty: 30 5RF allopurinol 100 mg tablet 100 mg PO DAILY Qty: 30 5RF apixaban 2.5 mg tablet 2.5 mg PO BID Qty: 180 3RF simvastatin 40 mg tablet 40 mg PO HS Qty: 90 3RF hydralazine 50 mg tablet 75 mg PO TID 30 Days Qty: 135 5RF (DME) Oxygen Home Liters Per Minute See Dose Instructions .ROUTE .MEDSUPPLY Qty: 1 0RF Dose Instruction: As directed Rx Instructions: As directed albuterol sulfate [Ventolin HFA] 90 mcg/actuation HFA aerosol inhaler 1 puffs INH Q6H PRN (Reason: Shortness Of Breath) ferrous sulfate 325 mg (65 mg iron) Tablet 325 mg PO QAM cyanocobalamin (vitamin B-12) [Vitamin B-12] 1,000 mcg Tablet 1,000 mcg PO QAM docusate sodium 100 mg capsule 100 mg PO DAILY PRN (Reason: Constipation) Spiriva Respimat 2.5 mcg/actuation mist 1 inh inhalation BID ipratropium-albuterol 0.5 mg-3 mg(2.5 mg base)/3 mL Solution For Nebulization 3 ml NEB QID PRN (Reason: shortness of breath or wheezing) Qty: 180 0RF aspirin 81 mg Tablet,Delayed Release (Dr/Ec) 81 mg PO QAM Qty: 30 0RF Rx Instructions: OTC Referrals Referrals: Ritu Pacheco MD [Primary Care Provider] -
[2022-09-17 12:46] LABS: Basophils # (auto) 0.04 K/uL (0-0.2); Basophils % (auto) 0.4 %; Eosinophils # (auto) 0.05 K/uL (0-0.50); Eosinophils % (auto) 0.5 %; Hematocrit (blood only) 32.9 % (34.1-44.9); Hemoglobin 10.7 g/dl (12.0-16.0); Immature Granulocytes # (auto) 0.04 K/uL (0.00-0.02); Immature Granulocytes % (auto) 0.4 %; Lymphocytes # (auto) 1.15 K/uL (1.2-3.4); Lymphocytes % (auto) 10.4 %; Mean Corpuscular Hemoglobin 29.4 pg (25.0-34.0); Mean Corpuscular Hgb Conc 32.5 g/dL (32.0-36.0); Mean Corpuscular Volume 90.4 fL (80.0-100.0); Mean Platelet Volume 9.2 fL (9.4-12.3); Monocytes # (auto) 0.66 K/uL (0.24-0.82); Monocytes % (auto) 5.9 %; Neutrophils # (auto) 9.17 K/uL (1.4-6.5); Neutrophils % (auto) 82.4 %; Platelet Count 264 K/uL (130-400); RDW Standard Deviation 46.2 fL (36.4-46.3); Red Blood Count 3.64 M/uL (3.93-5.22); White Blood Count 11.11 K/ul (4.8-10.8)
[2022-09-17 13:06] LABS: Base Excess VBG 4.3 mEq/L; HCO3 VBG 30 mmol/L; Oxygen Saturation VBG 74.2 %; PCO2 VBG 47 mmHg (38-50); PO2 VBG 42 mmHg; pH VBG 7.41 (7.36-7.41)
[2022-09-17 13:24] LABS: Troponin I High Sensitivity 12.6 pg/ml (0-14)
[2022-09-17 13:35] LABS: BUN Creatinine Ratio 23.6 (10-20); Calcium 9.5 mg/dl (8.5-10.1); Creatinine Clr Calc Pharmacy 24.9 ml/min; Est GFR (African American) 32.7 ml/min; Est GFR (Non-African American) 28.2 ml/min; Potassium 3.5 mmol/L (3.5-5.1)
[2022-09-17] MEDS ORDERED: AZITHROMYCIN 250 MG TAB PO ONE (13:38)
[2022-09-17] MEDS ORDERED: cefTRIAXone SODIUM 1,000 MG/50 ML BAG IV STA (13:38)
--- NOTE | 2022-09-17 13:47 | History & Physical Report ---
Date of Service September 17, 2022 Assessment & Plan (1) Hypoxia: Plan: -Admit to med/tele -Patient is currently afebrile, hemodynamically stable, and stable on RA at the time of admission -At this time the patient's hypoxia is likely multifactorial including RLL pne umonia (possibly aspiration) and COPD exacerbation -Covid, Influenza, and RSV screens were negatvie, will obtain biofire and sputum culture. Adding on BNP to rule out CHF but the patient did not examine volume overloaded. -Ordering blood cultures as well, never obtained in the ED prior to antibiotics were given -Patient was given 50 mg PO prednisone, DuoNebs, and one dose each of Ceftriaxone and Azithromycin -Patient has a recent history of squamous cell carcinoma S/P RLL wedge and lymph node dissection in 2019, CXR from today showing multiple pulmonary nodules in both lungs much more prominent than her last CXR on 06/08/22. With her history of cancer will obtain a CT of the chest WO contrast for further evaluation. -Patient also has a history of aspiration and bronchoscopy culture growing Mycobacterium Avium Complex, for now will continue with Unasyn for aspiration and Azithromycin to cover MAC and other atypical -Will start pulmonary hygiene including incentive spirometry and flutter therapy -Continue home breathing treatments including prn DuoNebs and scheduled fluticasone and Spiriva, -Monitor on tele and pulse oximetry -Wean off oxygen during the day as able, goal SPO2 is between 88-92% with her hx of COPD -Will continue Prednisone 40 mg PO daily for a total of 5 days for COPD exacerbation treatment -Patient follows with Dr. Kingsley, could consult pulm if CT results are concerning -Will consult speech for assessment and diet recommendations. For now will start with minced and mois diet -AM CBC and BMP (2) Coronary artery disease: Plan: -Continue aspirin and simvastatin (3) Chronic diastolic heart failure: Plan: -Continue lasix (4) History of pulmonary embolism: Plan: -Continue Eliquis (5) COPD (chronic obstructive pulmonary disease): Plan: -See Hypoxia (6) Paroxysmal atrial fibrillation: Plan: -Continue Carvedilol (7) Hyperlipidemia: Plan: -Continue simvastatin (8) Hypertension: Plan: -Continue carvedilol -Will hold hydralazine for now to avoid hypotension with her current infection Plan The patient was discussed with Dr. Jung at the time of the admission History of Present Illness Chief Complaint: SOB, intermittennt chest pain, fatigue, diarrhea, and cough Primary Care Provider: Ritu Pacheco MD Amanda is an 82 year old female with a PMH significant for CAD, paroxysmal atrial fibrillation on Eliquis, previous VTE, COPD on 2L NC at night, squamous cell lung cancer S/P RLL lobectomy in 2019 and lymph node dissection, HTN, Grade I diastolic dysfunction, hyperlipidemia, CKD, who presented to the [facility] ED on 09/17/22 with chief complaints of SOB, intermittent chest pain, fatigue, diarrhea, and cough which began yesterday. In the ED the patient was found to be afebrile, hemodynamically stable, and hypoxic at 86% on RA. Labs were remarkable for a leukocytosis of 11.11, stable Hgb at 10.7, left shift of 9.17, VBG WNL, stable renal function and electrolytes, high sensitivity troponin of 12.6, and negative covid, influenza A/B, and RSV screens. Chest xray today showed "Increase in right lower lung airspace opacity with suspected volume loss. This could reflect pneumonia or atelectasis. Radiographic follow-up is recommended. Interval development of right midlung and left basilar nodular opacities. These are likely infectious however radiographic follow up to ensure resolution is recommended to exclude the possibility of underlying pulmonary lesions.". In the ED the patient was placed on 2L NC and remained stable. She was given one dose of ceftriaxone, azithromycin, DuoNebs, and 50 mg PO prednisone prior to admission. Per chart review, the patient was previously diagnosed with squamous cell carcinoma in the right lower lobe in 2019. She underwent RLL lobectomy and lymph node dissection. Per notes after her resection it was believed that he procedure was curative and no other interventions or treatments were recommended at that time. She was last admitted to [facility] from 05/16/22-05/24/22 for KANU, hyperkalemia, severe vertigo, COPD exacerbation and RLL pneumonia. She was treated with IV fluids, oral steroids, rocephin, cefdinir and eventually discharged on azithromycin. At the time of the exam the patient was resting comfortably in bed in no acute distress with her daughter sitting bedside. History was obtained from both during my exam. At the start of my exam the patient was on 2L NC, I turned the oxygen off during my exam and she remained stable on RA. They states that she developed a more frequent cough, increased SOB, nausea, and diarrhea yesterday. She denies recent fevers, chills, vomiting, dysuria, hematuria, melena, and lower extremity swelling. When asked, she and her daughter confirm that she does have issues with choking and aspiration when she eats and drinks. Her daughter thinks that she had a choking episode this morning while eating breakfast. She uses her home inhalers but her daughter states that she has not not been using her breo nebulizer which she has at home. She notes increased frequency of her cough but denies changes in the amount or color of her sputum. She noted some intermittent substernal chest pain this morning while she was coughing, this last for less than a minute and she is chest pain free at this time. I spoke to she and her daughter regarding code status, the patient is a conditional code. She would NOT want CPR or defibrillation but would want a trial of intubation if needed. Please refer to Dr. Jung's attestation for any changes to the treatment plan Allergies Allergy/AdvReac Type Severity Reaction Status Date / Time chlorhexidine Allergy Mild HIVES,RED Verified 09/17/22 12:28 RASH Home Medications Medication Instructions Recorded Confirmed Type ferrous sulfate 325 mg (65 mg 325 mg PO QAM 12/23/18 09/17/22 History iron) tablet cyanocobalamin (vitamin B-12) 1,000 mcg PO QAM 05/02/19 09/17/22 History 1,000 mcg tablet (Vitamin B-12) Oxygen Home #1 ea 05/16/19 09/02/22 Rx docusate sodium 100 mg capsule 100 mg PO DAILY PRN Constipation 06/05/19 09/17/22 History albuterol sulfate 90 mcg/actuation 1 puffs inhalation Q6H PRN 07/31/19 09/17/22 History aerosol inhaler (Ventolin HFA) Shortness Of Breath nystatin 100,000 unit/gram topical 1 applic topical BID PRN . #15 10/22/20 09/17/22 Rx cream grams carvedilol 25 mg tablet 25 mg PO BID #180 tabs 09/29/21 09/17/22 Rx fluticasone furoate 100 1 inh inhalation DAILY 90 days #3 11/16/21 09/17/22 Rx mcg-vilanterol 25 mcg/dose Inhalers inhalation powder (Breo Ellipta) ergocalciferol (vitamin D2) 1,250 50,000 unit PO MONTHLY #3 caps 12/27/21 09/17/22 Rx mcg (50,000 unit) capsule furosemide 20 mg tablet (Lasix) 20 mg PO QAM #30 tabs 03/25/22 09/17/22 Rx allopurinol 100 mg tablet 100 mg PO DAILY #30 tabs 05/10/22 09/17/22 Rx apixaban 2.5 mg tablet 2.5 mg PO BID #180 tabs 05/11/22 09/17/22 Rx tiotropium bromide 2.5 1 inh inhalation BID 05/16/22 09/17/22 History mcg/actuation mist for inhalation (Spiriva Respimat) aspirin 81 mg tablet,delayed 81 mg PO QAM #30 tabs 05/24/22 09/17/22 Rx release ipratropium 0.5 mg-albuterol 3 mg 3 ml NEB QID PRN shortness of 05/24/22 09/17/22 Rx (2.5 mg base)/3 mL nebulization breath or wheezing #180 mL soln simvastatin 40 mg tablet 40 mg PO HS #90 tabs 06/07/22 09/17/22 Rx hydralazine 50 mg tablet 75 mg PO TID 30 days #135 tabs 07/06/22 09/17/22 Rx Past Med/Surg History Medical History Acute on chronic diastolic (congestive) heart failure Acute respiratory failure with hypoxia Acute severe vertigo Acute upper abdominal pain Anemia Cardiomyopathy Cellulitis CKD (chronic kidney disease) BASELINE CREATININE 1.6-1.8 PER CHART REVIEW COPD (chronic obstructive pulmonary disease) COPD exacerbation Coronary artery disease NON-OBSRTUCTIVE Cough Dyspnea Edema due to hypoalbuminemia Elevated serum creatinine Fall Hand pain History of abdominal aortic aneurysm (AAA) S/P REPAIR 2015 History of TX (myocardial infarction) 2016= MEDICALLY MANAGED Hyperglycemia Hyperlipidemia Hypertension Knee pain, left Left wrist pain Lung nodule Mitral regurgitation Multinodular goiter Nasal bleeding Nocturnal hypoxemia 2L AT HS Osteoarthritis Pre-syncope Pulmonary embolism RECURRENT (~2012) ON COUMADIN 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 Right lower lobe pneumonia Sacroiliitis Secondary renal hyperparathyroidism Shingles Takotsubo syndrome 2016 URI (upper respiratory infection) Vitamin D deficiency Surgical History AAA (abdominal aortic aneurysm) S/P REPAIR 2016 History of bladder surgery TURBT History of bronchoscopy EBUS, Navigational bronch with biopsy: 02/21/19: Grade 2 view, MAC 3, ETT 8.5 History of lobectomy of lung History of tooth extraction 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) Family History Sister Skin cancer Malignant neoplasm of bone Mother Cancer Daughter Diabetes Hypertension Brother Skin cancer Other Dyslipidemia Denies family history of Colon cancer Ovarian cancer Prostate cancer Kidney disease Myocardial infarction Breast cancer Lung cancer Stroke Social History Smoking Status: Never smoker Cigarettes Per Day: 30; Second Hand Exposure: No; Hx Alcohol Use: No Hx Substance Use: No Preferred Language: Amharic Communication Ability: Effective Visual Impairment: Limited Hearing Ability: Normal Control Clerk Head Required: No Beliefs That Will Affect Care: None marital status: / Current Living Situation: Alone current occupational status: retired How many Children do You have: 1 Feels Safe at Home: Yes Childhood Exposure to Second-Hand Smoke: Yes caffeine: Yes Dental Care, Regularly: No Physical Activity Frequency: Does not Exercise Seatbelt Use: always Sunscreen Use: No Assistive Devices: Denture - Upper, Glasses, Oxygen - Continuous and Walker Review of Systems Review of Systems: Denies current fever, chills, headache, changes in vision, hearing, taste, and smell, chest pain, abdominal pain, nausea, vomiting, hematemesis, melena, dysuria, hematuria, and recent falls. All systems have been reviewed and are otherwise negative. Physical Exam Physical Exam: Physical Exam: General: In no acute distress, stated age, chronically ill-apperaing, non- toxic appearing HEENT: Normocephalic, atraumatic, no scleral icterus, pupils around round, symmetrical, and reactive to light, Currently with nasal cannula in place, moist mucus membranes, trachea midline, no thyromegaly Chest/Pulm: No respiratory distress, symmetrical chest expansion, expiratory wheezing and scattered rhonchi noted in the BL upper lung butts, crackled and decreased lung sounds in the RML and LLL. Cardiac: RRR, no murmurs noted Abdomen: Negative for ascites and bruising, normoactive bowel sounds, soft, non-tender to palpation throughout Musculoskeletal: Symmetrical and without signs of acute trauma, upper and lower extremities with full ROM, no atrophy, spasticity, or flaccidity Extremities: Radial, dorsalis pedis, and posterior tibial pulses are intact and symmetrical, no edema noted in the BL LE's Skin: Warm, dry, no rashes , lesions, or scars noted Neuro: Alert and oriented to person, place, month, year, and president, no focal defects, CN II-XII tested and intact Psych: No acute distress, calm and cooperative during the exam Results & Data Results & Data ([facility]) Vital Signs (Past 12 Hours) Vital Signs Temp Pulse Resp BP Pulse Ox O2 Del Method O2 Flow Rate 09/17/22 13:10 97 Nasal Cannula 2 09/17/22 13:10 86 L Room Air 09/17/22 12:08 36.4 C L 84 18 106/55 L 91 Room Air Laboratory Results Abnormal lab results 09/17/22 09/17/22 Range/Units 12:33 12:33 WBC 11.11 H (4.8-10.8) K/ul RBC 3.64 L (3.93-5.22) M/uL Hgb 10.7 L (12.0-16.0) g/dl Hct 32.9 L (34.1-44.9) % MPV 9.2 L (9.4-12.3) fL Neut # (Auto) 9.17 H (1.4-6.5) K/uL Lymph # (Auto) 1.15 L (1.2-3.4) K/uL Immature Gran # (Auto) 0.04 H (0.00-0.02) K/uL BUN 39 H (6-23) mg/dl Creatinine 1.65 H (0.6-1.2) mg/dl BUN/Creatinine Ratio 23.6 H (10-20) Glucose 125 H (70-99(Fasting)) mg/dl Diagnostic Findings Chest X-Ray 09/17/22 12:15 XR chest 1V portable CLINICAL HISTORY: Chest pain. COMPARISON STUDY: Chest CT May 16, 2022. Chest radiograph June 08, 2022. FINDINGS: Postoperative findings within the right hemithorax are noted. Right lung volume loss has likely increased. There is no pneumothorax. A small right pleural effusion is increased in size since prior exam. Right basilar opacity has increased. In addition, right midlung and left basilar nodular airspace opacities have developed. There is no evidence for pulmonary edema. IMPRESSION: 1. Increase in right lower lung airspace opacity with suspected volume loss. This could reflect pneumonia or atelectasis. Radiographic follow-up is recommended. 2. Interval development of right midlung and left basilar nodular opacities. These are likely infectious however radiographic follow up to ensure resolution is recommended to exclude the possibility of underlying pulmonary lesions. ACT 112: Negative or not required by law. Electronically signed by: Gerardo Pires M.D. 09/17/2022 12:34 PM ECG Additional Comments: Normal sinus rhythm Low voltage QRS Cannot rule out Anterior infarct , age undetermined Abnormal ECG When compared with ECG of 24-MAY-2022 05:56, Nonspecific T wave abnormality now evident in Anterior leads Code Status & VTE Plan Code Status Conditional code; No CPR or defibrillation but would want a trial of intubation Supervising Physician Co-Signing Physician Notes Patient was seen and examined independently I discussed the case with Donal ODELL I reviewed pertinent past medical social family history and also the plan of care and agree with the plan of care. Pt with increased work of breathing, productive cough of clear mucus an increased fatigue she has a history of RLL lobectomy from [facility] in 2019 CXR with some bilateral patchy parenchymal infiltrates . exam with coarse rhonchi bilaterally, cough. will admit and treat form pneumonia, possible aspiration pneumonia, asses swallowing, steroids and nebs plus suplemental oxygen Any exceptions will be noted below PG Care Time/CCT Total # of Minutes Spent Total Time Spent with Patient: Total time spent is greater than 50% in coordination of care (as documented) at patient's floor/unit and/or counseling patient: Coding Level of Care Code Established Pt INT OBSERVATION CARE 50M LVL 2 Patient Type Established Medical Decision Making Moderate Complexity Diagnoses Hypoxia R09.02 Coronary artery disease I25.10 Associated angina: without angina Coronary Disease-Associated Artery/Lesion type: [place] artery [place] vs. transplanted heart: squaxin heart Chronic diastolic heart failure I50.32 History of pulmonary embolism Z86.711 COPD (chronic obstructive pulmonary disease) J44.9 COPD type: unspecified COPD Paroxysmal atrial fibrillation I48.0 Hyperlipidemia E78.5 Hyperlipidemia type: unspecified Hypertension I10 Hypertension type: essential hypertension (1) Coronary artery disease Associated angina: without angina Coronary Disease-Associated Artery/Lesion type: [place] artery [place] vs. transplanted heart: squaxin heart Qualified Code(s): I25.10 - Atherosclerotic heart disease of squaxin coronary artery without angina pectoris (2) Hyperlipidemia Hyperlipidemia type: unspecified Qualified Code(s): E78.5 - Hyperlipidemia, unspecified (3) COPD (chronic obstructive pulmonary disease) COPD type: unspecified COPD Qualified Code(s): J44.9 - Chronic obstructive pulmonary disease, unspecified (4) Hypertension Hypertension type: essential hypertension Qualified Code(s): I10 - Essential (primary) hypertension
[2022-09-17 14:22] LABS: Influenza A virus by PCR Negative (Neg); Influenza B virus by PCR Negative (Neg); RSV by PCR Negative (Neg); SARS CoV2 RNA(COVID-19)Cepheid NEGATIVE (Negative)
[2022-09-17] MEDS ORDERED: AMPICILLIN/SULBACTAM SOD 1,500 MG in 0.9 % SODIUM CHLORIDE 100 ML IV SCH (15:00)
--- NOTE | 2022-09-17 16:02 | CT Scan Report ---
CT OF THE CHEST WITHOUT IV CONTRAST CLINICAL HISTORY: Pulmonary nodules with history of lung cancer. COMPARISON STUDY: Chest CT May 16, 2022 and chest radiograph performed earlier today. CT DOSE: 224.04 mGy.cm TECHNIQUE: Axial images of the chest were obtained without IV contrast. Images were reviewed in the axial, sagittal, and coronal planes. IV contrast was not administered for this examination. Automat ed exposure control was utilized for the study. A dose lowering technique was utilized adhering to t he principles of ALARA. FINDINGS: Enlarged mediastinal lymph nodes have mildly increased in size since chest CT of May 16, 2022. Index right paratracheal lymph node on image 86 of 326 measures 1.3 cm in short axis diameter. It previously measured 1.2 cm. A precarinal node on image 124 measures 1.6 cm. It previously measured 1.2 cm. No pericardial effusion. Coronary artery calcification is noted. Postoperative findings cons istent with right lower lobectomy are present. There is a trace right pleural effusion. No pneumothor ax is noted. There are extensive secretions throughout the right lower lung airways. These have progr essed since prior exam. An underlying mass is considered less likely. Bilateral airspace opacities pena ve progressed. Extensive multifocal consolidation within the right lower lung has developed. There is no cavitation. Numerous ill-defined nodules throughout the lungs have also developed since prior CT. These include a 2.1 cm lingular nodule. Larger nodular opacities within the right lower lung are pre sent. Moderate emphysema is noted. There is no left pleural effusion. No suspicious lesions within th e visualized bony thorax are noted. Utilized portions of the upper abdomen are unchanged in appearanc e since prior CT. IMPRESSION: 1. Status post right lower lobectomy. Interval development of extensive right lower lung consolidatio n and numerous ill-defined nodules throughout the lungs since chest CT of May 16, 2022. Increase in right lower lung volume loss. Given rapid development, an infectious etiology is strongly favored. A neoplastic etiology is within the differential but considered less likely. A short-term follow-up [facility] CT in one month is recommended. 2. Increase in extensive right lower lung secretions. No underlying mass identified. 3. Increase in mild mediastinal lymphadenopathy. This is likely reactive but can be assessed on follo w-up CT. 4. Emphysema. ACT 112: Negative or not required by law. Electronically signed by: Gerardo Pires M.D. 09/17/2022 4:00 PM
[2022-09-17 16:11] LABS: Adenovirus PCR Not Detected (NotDetected); Bordetella parapertussis PCR Not Detected (NotDetected); Bordetella pertussis PCR Not Detected (NotDetected); Chlamydia pneumoniae PCR Not Detected (NotDetected); Coronavirus 229E PCR Not Detected (NotDetected); Coronavirus CoV-2 (COVID19)PCR Not Detected (NotDetected); Coronavirus HKU1 PCR Not Detected (NotDetected); Coronavirus NL63 PCR Not Detected (NotDetected); Coronavirus OC43PCR Not Detected (NotDetected); Human Metapneumovirus PCR Not Detected (NotDetected); Influenza A PCR Not Detected (NotDetected); Influenza B PCR Not Detected (NotDetected); Mycoplasma pneumoniae PCR Not Detected (NotDetected); Parainfluenza Virus 1 PCR Not Detected (NotDetected); Parainfluenza Virus 2 PCR Not Detected (NotDetected); Parainfluenza Virus 3 PCR Not Detected (NotDetected); Parainfluenza Virus 4 PCR Not Detected (NotDetected); Respiratory Syncytial VirusPCR Not Detected (NotDetected); Rhinovirus/Enterovirus PCR Not Detected (NotDetected)
[2022-09-17] MEDS: AMPICILLIN/SULBACTAM SOD 1,500 MG in 0.9 % SODIUM CHLORIDE 100 ML IV SCH (16:27)
[2022-09-17] MEDS ORDERED: ACETAMINOPHEN 325 MG TAB PO PRN (17:19)
[2022-09-17] MEDS ORDERED: DOCUSATE SODIUM 100 MG CAP PO PRN (17:19)
[2022-09-17] MEDS ORDERED: ALBUTEROL HFA 8 GM INHALER INH PRN (17:19)
[2022-09-17] MEDS ORDERED: NYSTATIN CR 15 GM TUBE EXT PRN (17:19)
[2022-09-17] MEDS: ALBUT/IPRATROP 3MG/0.5MG NEB 3 ML VIAL NEB SCH (19:09)
[2022-09-17] MEDS: APIXABAN 2.5 MG TAB PO SCH (20:58)
[2022-09-17] MEDS: SIMVASTATIN 40 MG TAB PO SCH (20:58)
[2022-09-17] MEDS: carvediloL 25 MG TAB PO SCH (20:58)
[2022-09-18] MEDS: AMPICILLIN/SULBACTAM SOD 1,500 MG in 0.9 % SODIUM CHLORIDE 100 ML IV SCH ×2 (05:33→16:49)
[2022-09-18 06:00] LABS: Hematocrit (blood only) 28.7 % (34.1-44.9); Hemoglobin 9.3 g/dl (12.0-16.0); Mean Corpuscular Hgb Conc 32.4 g/dL (32.0-36.0); Mean Corpuscular Volume 89.4 fL (80.0-100.0); Mean Platelet Volume 9.7 fL (9.4-12.3); Platelet Count 250 K/uL (130-400); RDW Coefficient of Variation 13.7 % (11.5-14.5); Red Blood Count 3.21 M/uL (3.93-5.22); White Blood Count 7.92 K/ul (4.8-10.8)
[2022-09-18 06:21] LABS: Bilirubin,Total 0.3 mg/dl (0.2-1.0); Calcium 9.3 mg/dl (8.5-10.1); Creatinine Clr Calc Pharmacy 26.2 ml/min; Est GFR (African American) 34.5 ml/min; Est GFR (Non-African American) 29.7 ml/min; Globulin 3.1 gm/dl (2.5-4.0); Potassium 3.9 mmol/L (3.5-5.1); Total Protein 6.1 gm/dl (6.0-8.3)
[2022-09-18] MEDS: ALBUT/IPRATROP 3MG/0.5MG NEB 3 ML VIAL NEB SCH ×4 (07:02→19:10)
--- NOTE | 2022-09-18 07:43 | Hospitalist Progress Note ---
Date of Service September 18, 2022 Assessment & Plan (1) Consolidation of right lower lobe of lung: Plan: 82-year-old woman with history of CAD, paroxysmal AF on Eliquis, COPD on nightly oxygen, squamous cell lung cancer status post right lower lobe lobectomy (2019), hypertension, hyperlipidemia, CKD4 who presented to the emergency room with complaint of dyspnea, chest pain, cough, diarrhea x1 day. Acute hypoxic resp failure sec to RLL pneumonia -Patient stable on room air at time of admission. Also afebrile. -History of COPD on albuterol inhaler, Veramyst -Respiratory panel completely negative. Blood cultures obtained. -CT chest, CXR showed RLL opacity suggestive of acute infectious process. Patient does have recent history of squamous cell lung cancer s/p RLL lobectomy in 2019. Follow-up CT x1 month recommended. -Received p.o. prednisone 50 mg, duo nebs, CTX plus azithromycin x1 dose each in the ED. Started on Unasyn, azithromycin on admission. -Evaluated by speech and swallow: Suspect aspiration. Recommended minced and moist heart healthy diet, mouth care before meals and at bedtime. FEES on 09/19/2022. * Continue empiric antibiotic therapy. Adjust as indicated * Prednisone p.o. 40 mg x 5 days * Continue DuoNeb therapy as needed * Continue minced & moist diet, per speech evmichael recabhi. FEES study to follow. * Daytime weaning of oxygen as tolerated (goal SPO2: 88-92%) COPD * As above. CAD * Continue home aspirin, simvastatin Chronic HFpEF * Continue home Lasix Paroxysmal A. fib * Continue home carvedilol, Eliquis Hyperlipidemia * Continue simvastatin, as above Hypertension * Continue carvedilol. Consider restarting hydralazine following evaluation Code: conditional code (Trial of intubation only) Dispo: Med-Surg with/without telemetry FEN/GI: heart healthy minced and moist DVT Prophylaxis: Eliquis 5 mg PT/OT: Consults: speech Case management: (2) Hypoxia: (3) Coronary artery disease: (4) Chronic diastolic heart failure: (5) Paroxysmal atrial fibrillation: (6) Hyperlipidemia: (7) Hypertension: Admission and Anticipated Discharge Date Admission Date: September 17, 2022 Supervising Physician Co-Signing Physician Notes Resident Physician Supervision Note: I independently interviewed and examined the patient and verified the nugent history and physical, reviewed labs and image studies and agree with resident findings and care plan. Subjective No acute events overnight. Patient asleep on 2 L oxygen via nasal cannula upon entry this morning but easily roused by voice. She reports a lingering cough but denies shortness of breath or chest pain. She has no other acute concerns. Review of Systems Review of Systems: All systems reviewed & are unremarkable except as noted in HPI & below Physical Exam Physical Exam: General: Well-appearing, alert, interactive, and in no acute distress. HEENT: Normocephalic, atraumatic. EOM intact. Good conjugate gaze. Nares patent. Moist mucosal membranes. Neck: Supple. No lymphadenopathy. Normal ROM. CV: Regular rate and rhythm. Normal S1 and S2. No murmurs gallops or rubs. Respiratory: Moderate respiratory effort. Bibasilar crackles, rhonchi. No wheezes. Abdomen: Soft, nondistended abdomen. No bruits heard on auscultation. No tenderness to deep palpation. No guarding or rebound. Extremities: Capillary refill <2 sec. 2+ dp equal bilaterally. No pedal edema. Neuro: Alert and oriented x3. Skin: Clean, dry, and intact. No rashes, bruises, or erythema. Results & Data Results & Data ([facility]) Vital Signs (Past 12 Hours) Vital Signs Temp Pulse Pulse Resp BP BP Pulse Ox 09/18/22 07:27 36.4 C L 65 20 153/73 H 96 09/18/22 07:03 67 18 96 09/18/22 03:35 36.3 C L 69 16 162/78 H 99 09/17/22 23:39 36.5 C 71 16 144/69 H 97 09/17/22 22:12 69 09/17/22 20:00 09/17/22 19:46 36.5 C 74 18 109/66 94 O2 Del Method O2 Flow Rate 09/18/22 07:27 Nasal Cannula 2 09/18/22 07:03 Nasal Cannula 2 09/18/22 03:35 Nasal Cannula 2 09/17/22 23:39 Nasal Cannula 2 09/17/22 22:12 09/17/22 20:00 Nasal Cannula 2 09/17/22 19:46 Nasal Cannula 2 Resident Activity Tracking Resident Involvement: Resident Care Provided Care Provided: Adult Hospital Medicine (1) Coronary artery disease Associated angina: without angina Coronary Disease-Associated Artery/Lesion type: [place] artery [place] vs. transplanted heart: [place] heart Qualified Code(s): I25.10 - Atherosclerotic heart disease of [place] coronary artery w ithout angina pectoris (2) Hyperlipidemia Hyperlipidemia type: unspecified Qualified Code(s): E78.5 - Hyperlipidemia, unspecified (3) Hypertension Hypertension type: essential hypertension Qualified Code(s): I10 - Essential (primary) hypertension
[2022-09-18] MEDS: CYANOCOBALAMIN (B-12) 500 MCG TABLET PO SCH (07:46)
[2022-09-18] MEDS: allopurinoL 100 MG TAB PO SCH (07:47)
[2022-09-18] MEDS: carvediloL 25 MG TAB PO SCH ×2 (07:47→21:25)
[2022-09-18] MEDS: FUROSEMIDE 20 MG TAB PO SCH (07:47)
[2022-09-18] MEDS: FERROUS SULFATE 325 MG TAB PO SCH (07:47)
[2022-09-18] MEDS: ASPIRIN 81 MG ECTAB PO SCH (07:47)
[2022-09-18] MEDS: APIXABAN 2.5 MG TAB PO SCH ×2 (07:48→21:25)
[2022-09-18] MEDS: UMECLIDINIUM BROMIDE 62.5MCG/BLISTER 7 PUFFS/INHALER INH SCH (07:49)
[2022-09-18] MEDS: FLUTICASONE/VILANTEROL 100/25MCG 14 PUFFS/INHALER INH SCH (07:49)
[2022-09-18] MEDS: predniSONE 20 MG TAB PO SCH (09:17)
[2022-09-18] MEDS: AZITHROMYCIN 500 MG in DEXTROSE 5% 250 ML IV SCH (14:44)
[2022-09-18] MEDS ORDERED: PNEUMOCOCCAL POLYSACCHARIDES 25 MCG/0.5 ML VIAL/SYR IM ONE (17:36)
[2022-09-18] MEDS: SIMVASTATIN 40 MG TAB PO SCH (21:25)
--- NOTE | 2022-09-18 22:09 | Electrocardiogram Report ---
Test Reason : Blood Pressure : / mmHG Vent. Rate : 083 BPM Atrial Rate : 083 BPM P-R Int : 176 ms QRS Dur : 072 ms QT Int : 374 ms P-R-T Axes : 021 018 048 degrees QTc Int : 439 ms Normal sinus rhythm Low voltage QRS Cannot rule out Anterior infarct , age undetermined Abnormal ECG When compared with ECG of 24-MAY-2022 05:56, No significant change Confirmed by Pranay Mccoy ([id number]) on 09/18/2022 10:08:51 PM Referred By: REFERRED SELF Confirmed By:Pranay Mccoy
[2022-09-19] MEDS: AMPICILLIN/SULBACTAM SOD 1,500 MG in 0.9 % SODIUM CHLORIDE 100 ML IV SCH ×2 (04:51→16:09)
[2022-09-19] MEDS: ALBUT/IPRATROP 3MG/0.5MG NEB 3 ML VIAL NEB SCH ×4 (06:59→19:52)
[2022-09-19 07:56] LABS: Hemoglobin 9.6 g/dl (12.0-16.0); Mean Corpuscular Hemoglobin 29.4 pg (25.0-34.0); Mean Corpuscular Hgb Conc 33.1 g/dL (32.0-36.0); Mean Platelet Volume 9.7 fL (9.4-12.3); Platelet Count 258 K/uL (130-400); RDW Coefficient of Variation 13.3 % (11.5-14.5); RDW Standard Deviation 43.7 fL (36.4-46.3); Red Blood Count 3.26 M/uL (3.93-5.22); White Blood Count 12.64 K/ul (4.8-10.8)
[2022-09-19] MEDS: APIXABAN 2.5 MG TAB PO SCH ×2 (08:00→20:30)
[2022-09-19] MEDS: CYANOCOBALAMIN (B-12) 500 MCG TABLET PO SCH (08:00)
[2022-09-19] MEDS: ASPIRIN 81 MG ECTAB PO SCH (08:00)
[2022-09-19] MEDS: FUROSEMIDE 20 MG TAB PO SCH (08:00)
[2022-09-19] MEDS: predniSONE 20 MG TAB PO SCH (08:00)
[2022-09-19] MEDS: FERROUS SULFATE 325 MG TAB PO SCH (08:00)
[2022-09-19] MEDS: allopurinoL 100 MG TAB PO SCH (08:00)
[2022-09-19] MEDS: carvediloL 25 MG TAB PO SCH ×2 (08:00→20:29)
[2022-09-19] MEDS: FLUTICASONE/VILANTEROL 100/25MCG 14 PUFFS/INHALER INH SCH (08:01)
[2022-09-19] MEDS: UMECLIDINIUM BROMIDE 62.5MCG/BLISTER 7 PUFFS/INHALER INH SCH (08:01)
[2022-09-19 08:29] LABS: Albumin Globulin Ratio 1.2 (0.9-2); BUN Creatinine Ratio 33.3 (10-20); Bilirubin,Total 0.3 mg/dl (0.2-1.0); Calcium 9.1 mg/dl (8.5-10.1); Est GFR (African American) 31.3 ml/min; Globulin 2.6 gm/dl (2.5-4.0); Potassium 4.5 mmol/L (3.5-5.1); Total Protein 5.6 gm/dl (6.0-8.3)
--- NOTE | 2022-09-19 13:08 | Hospitalist Progress Note ---
Date of Service September 19, 2022 Assessment & Plan (1) Consolidation of right lower lobe of lung: Plan: 82-year-old woman with history of CAD, paroxysmal AF on Eliquis, COPD on nightly oxygen, squamous cell lung cancer status post right lower lobe lobectomy (2019), hypertension, hyperlipidemia, CKD4 who presented to the emergency room with complaint of dyspnea, chest pain, cough, diarrhea x1 day. Acute hypoxic resp failure sec to RLL pneumonia -Patient stable on room air at time of admission. Also afebrile. -History of COPD on albuterol, breo ellipta, spiriva at home -Respiratory panel completely negative. Blood cultures no growth thus far. -CT chest, CXR: showed RLL opacity suggestive of acute infectious process. Patient does have recent history of squamous cell lung cancer s/p RLL lobectomy in 2019. Follow-up CT x1 month recommended. -Received p.o. prednisone 50 mg, duo nebs, CTX plus azithromycin x1 dose each in the ED. -Evaluated by speech and swallow: FEES unremarkable for aspiration. Upgraded to regular diet. * Unasyn d/c'd. Started augmentin x7 days total. Transitioned to PO azithromycin (5 days total) * cont. prednisone po 40mg, will taper on discharge * Continue DuoNeb, breo Ellipta, incruse ellipta * Daytime weaning of oxygen as tolerated (goal SPO2: 88-92%) COPD * As above. CAD * Continue home aspirin, simvastatin Chronic HFpEF * Continue home Lasix Paroxysmal A. fib * Continue home carvedilol, Eliquis Hyperlipidemia * Continue simvastatin, as above Hypertension * Continue carvedilol. Restarted hydralazine. Code: conditional code (Trial of intubation only) Dispo: med tele FEN/GI: regular DVT Prophylaxis: Eliquis 5 mg (2) Hypoxia: (3) Coronary artery disease: (4) Chronic diastolic heart failure: (5) Paroxysmal atrial fibrillation: (6) Hyperlipidemia: (7) Hypertension: Admission and Anticipated Discharge Date Admission Date: September 17, 2022 Supervising Physician Co-Signing Physician Notes I personally examined the patient and verified all nugent points of history and exam, discussed case, and agree with decision making with Dr Castillo. Feeling better breathing better still on oxygennotes she only uses it as needed at homemost of the time her pulse ox is in the low to mid 90s without oxygen, but she does have it available. Vitals noted, in general she is awake and alert pleasant no distress. HEENT normocephalic atraumatic mucous membranes moist. Lungs show scattered rhonchi no rales no wheezes good effort no accessory muscle use no conversational dyspnea Right lower lobe community-acquired pneumonia with subsequent COPD exacerbationimproving. Continue current care for now. Hopefully home soon on p.o. antibiotics and steroids, may need supplemental oxygen more often than her baseline for short period of time. Subjective Seen at bedside this mornign. No acute events overnight. On 1.5L. Her home baseline is 2L while sleeping and prn throughout day. She reports a lingering cough but denies shortness of breath or chest pain. Denies abd pain, headache, N/V. Review of Systems Review of Systems: All systems reviewed & are unremarkable except as noted in HPI & below Physical Exam Physical Exam: General: Well-appearing, alert, interactive, and in no acute distress. HEENT: Normocephalic, atraumatic. EOMI. Moist mucosal membranes. Neck: Supple. No lymphadenopathy. CV: RRR. Normal S1 and S2. No murmurs gallops or rubs. Respiratory: no increased respiratory effort. Bibasilar crackles, rhonchi. +RLL wheeze. Abdomen: Soft, nontender, nondistended abdomen. No guarding or rebound. Extremities: 2+ dp equal bilaterally. No pedal edema. Neuro: Alert and oriented x3. Skin: No rashes, bruises, or erythema. Results & Data Results & Data ([facility]) Vital Signs (Past 12 Hours) Vital Signs Temp Pulse Pulse Resp BP BP Pulse Ox 09/19/22 10:55 66 18 96 09/19/22 10:50 09/19/22 10:00 09/19/22 10:44 36.5 C 67 20 159/74 H 98 09/19/22 07:37 36.5 C 72 18 151/68 H 92 09/19/22 07:36 73 09/19/22 06:59 67 18 98 09/19/22 04:00 36.5 C 72 16 167/67 H 94 Pulse Ox O2 Del Method O2 Del Method O2 Flow Rate O2 Flow Rate 09/19/22 10:55 Nasal Cannula 09/19/22 10:50 Nasal Cannula 2 09/19/22 10:00 98 Nasal Cannula 2 09/19/22 10:44 Nasal Cannula 2 09/19/22 07:37 Nasal Cannula 2 09/19/22 07:36 09/19/22 06:59 Nasal Cannula 2 09/19/22 04:00 Nasal Cannula 2 Laboratory Results 09/19/22 09/19/22 Range/Units 07:30 07:30 WBC 12.64 H (4.8-10.8) K/ul RBC 3.26 L (3.93-5.22) M/uL Hgb 9.6 L (12.0-16.0) g/dl Hct 29.0 L (34.1-44.9) % MCV 89.0 (80.0-100.0) fL MCH 29.4 (25.0-34.0) pg MCHC 33.1 (32.0-36.0) g/dL RDW Std Deviation 43.7 (36.4-46.3) fL RDW Coeff of Mio 13.3 (11.5-14.5) % Plt Count 258 (130-400) K/uL MPV 9.7 (9.4-12.3) fL Sodium 136 (136-145) mmol/L Potassium 4.5 (3.5-5.1) mmol/L Chloride 100 (98-107) mmol/L Carbon Dioxide 30 (21-32) mmol/L Anion Gap 6 (3-11) BUN 57 H (6-23) mg/dl Creatinine 1.71 H (0.6-1.2) mg/dl Est Cr Clr Drug Dosing 22.0 ml/min Est GFR ( Amer) 31.3 ml/min Est GFR (Non-Af Amer) 27.0 ml/min BUN/Creatinine Ratio 33.3 H (10-20) Glucose 126 H (70-99(Fasting)) mg/dl Calcium 9.1 (8.5-10.1) mg/dl Total Bilirubin 0.3 (0.2-1.0) mg/dl AST 13 (13-39) U/L ALT 11 (7-52) U/L Alkaline Phosphatase 74 (34-104) U/L Total Protein 5.6 L (6.0-8.3) gm/dl Albumin 3.0 L (3.4-5.0) gm/dl Globulin 2.6 (2.5-4.0) gm/dl Albumin/Globulin Ratio 1.2 (0.9-2) Resident Activity Tracking Resident Involvement: Resident Care Provided Care Provided: Adult Hospital Medicine (1) Coronary artery disease Associated angina: without angina Coronary Disease-Associated Artery/Lesion type: [place] artery [place] vs. transplanted heart: [place] heart Qualified Code(s): I25.10 - Atherosclerotic heart disease of [place] coronary artery without angina pectoris (2) Hyperlipidemia Hyperlipidemia type: unspecified Qualified Code(s): E78.5 - Hyperlipidemia, unspecified (3) Hypertension Hypertension type: essential hypertension Qualified Code(s): I10 - Essential (primary) hypertension
[2022-09-19] MEDS: AZITHROMYCIN 500 MG in DEXTROSE 5% 250 ML IV SCH (15:28)
[2022-09-19] MEDS: AZITHROMYCIN 250 MG TAB PO SCH (17:08)
--- NOTE | 2022-09-19 19:01 | Billing Data ---
Date of Service September 19, 2022 Coding Level of Care Code 32840 Subseq Hosp Care Lvl 3
[2022-09-19] MEDS: SIMVASTATIN 40 MG TAB PO SCH (20:30)
[2022-09-19] MEDS: hydrALAZINE HCL 25 MG TAB PO SCH (20:42)
[2022-09-19] MEDS: AMOXICILLIN/CLAVULANATE 500 MG TAB PO SCH (20:44)
[2022-09-19] MEDS ORDERED: AMOXICILLIN/CLAVULANATE 875 MG TAB PO SCH (21:00)
[2022-09-20] MEDS: ALBUT/IPRATROP 3MG/0.5MG NEB 3 ML VIAL NEB SCH ×2 (06:51→10:58)
[2022-09-20 07:51] LABS: BUN Creatinine Ratio 35.3 (10-20); Creatinine Clr Calc Pharmacy 22.2 ml/min; Est GFR (African American) 31.5 ml/min; Est GFR (Non-African American) 27.2 ml/min; Potassium 4.9 mmol/L (3.5-5.1)
[2022-09-20] MEDS: hydrALAZINE HCL 25 MG TAB PO SCH (08:05)
[2022-09-20] MEDS: AMOXICILLIN/CLAVULANATE 500 MG TAB PO SCH (08:05)
[2022-09-20] MEDS: FERROUS SULFATE 325 MG TAB PO SCH (08:06)
[2022-09-20] MEDS: ASPIRIN 81 MG ECTAB PO SCH (08:06)
[2022-09-20] MEDS: CYANOCOBALAMIN (B-12) 500 MCG TABLET PO SCH (08:06)
[2022-09-20] MEDS: allopurinoL 100 MG TAB PO SCH (08:06)
[2022-09-20] MEDS: APIXABAN 2.5 MG TAB PO SCH (08:07)
[2022-09-20] MEDS: AZITHROMYCIN 250 MG TAB PO SCH (08:07)
[2022-09-20] MEDS: FUROSEMIDE 20 MG TAB PO SCH (08:07)
[2022-09-20] MEDS: predniSONE 20 MG TAB PO SCH (08:07)
[2022-09-20] MEDS: FLUTICASONE/VILANTEROL 100/25MCG 14 PUFFS/INHALER INH SCH (08:08)
[2022-09-20] MEDS: UMECLIDINIUM BROMIDE 62.5MCG/BLISTER 7 PUFFS/INHALER INH SCH (08:08)
[2022-09-20] MEDS: carvediloL 25 MG TAB PO SCH (08:11)
--- NOTE | 2022-09-20 17:56 | Discharge Summary ---
Date of Service September 20, 2022 Admission HPI Per Admitting Provider Amanda is an 82 year old female with a PMH significant for CAD, paroxysmal atrial fibrillation on Eliquis, previous VTE, COPD on 2L NC at night, squamous cell lung cancer S/P RLL lobectomy in 2019 and lymph node dissection, HTN, Grade I diastolic dysfunction, hyperlipidemia, CKD, who presented to the [facility] ED on 09/17/22 with chief complaints of SOB, intermittent chest pain, fatigue, diarrhea, and cough which began yesterday. In the ED the patient was found to be afebrile, hemodynamically stable, and hypoxic at 86% on RA. Labs were remarkable for a leukocytosis of 11.11, stable Hgb at 10.7, left shift of 9.17, VBG WNL, stable renal function and electrolytes, high sensitivity troponin of 12.6, and negative covid, influenza A/B, and RSV screens. Chest xray today showed "Increase in right lower lung airspace opacity with suspected volume loss. This could reflect pneumonia or atelectasis. Radiographic follow-up is recommended. Interval development of right midlung and left basilar nodular opacities. These are likely infectious however radiographic follow up to ensure resolution is recommended to exclude the possibility of underlying pulmonary lesions.". In the ED the patient was placed on 2L NC and remained stable. She was given one dose of ceftriaxone, azithromycin, DuoNebs, and 50 mg PO prednisone prior to admission. Per chart review, the patient was previously diagnosed with squamous cell carcinoma in the right lower lobe in 2019. She underwent RLL lobectomy and lymph node dissection. Per notes after her resection it was believed that he procedure was curative and no other interventions or treatments were recommended at that time. She was last admitted to [facility] from 05/16/22-05/24/22 for KANU, hyperkalemia, severe vertigo, COPD exacerbation and RLL pneumonia. She was treated with IV fluids, oral steroids, rocephin, cefdinir and eventually discharged on azithromycin. At the time of the exam the patient was resting comfortably in bed in no acute distress with her daughter sitting bedside. History was obtained from both during my exam. At the start of my exam the patient was on 2L NC, I turned the oxygen off during my exam and she remained stable on RA. They states that she developed a more frequent cough, increased SOB, nausea, and diarrhea yesterday. She denies recent fevers, chills, vomiting, dysuria, hematuria, melena, and lower extremity swelling. When asked, she and her daughter confirm that she does have issues with choking and aspiration when she eats and drinks. Her daughter thinks that she had a choking episode this morning while eating breakfast. She uses her home inhalers but her daughter states that she has not not been using her breo nebulizer which she has at home. She notes increased frequency of her cough but denies changes in the amount or color of her sputum. She noted some intermittent substernal chest pain this morning while she was coughing, this last for less than a minute and she is chest pain free at this time. I spoke to she and her daughter regarding code status, the patient is a conditional code. She would NOT want CPR or defibrillation but would want a trial of intubation if needed. Please refer to Dr. Jung's attestation for any changes to the treatment plan Principal Diagnosis COPD exacerbation, pneumonia Discharge Exam General: Well-appearing, alert, interactive, and in no acute distress. HEENT: Normocephalic, atraumatic. EOMI. Moist mucosal membranes. Neck: Supple. No lymphadenopathy. CV: RRR. Normal S1 and S2. No murmurs gallops or rubs. Respiratory: no increased respiratory effort. Bibasilar crackles, rhonchi improved. No wheezing. Abdomen: Soft, nontender, nondistended abdomen. No guarding or rebound. Extremities: 2+ dp equal bilaterally. No pedal edema. Neuro: Alert and oriented x3. Skin: No rashes, bruises, or erythema. Discharge Data Allergies Allergy/AdvReac Type Severity Reaction Status Date / Time chlorhexidine Allergy Mild HIVES,RED Verified 09/17/22 12:28 RASH Consultations 09/17/22 13:39 ED Decision to Admit Stat Ordered Studies Laboratory Results WBC 12.64 K/ul (4.8-10.8) H 09/19/22 07:30 RBC 3.26 M/uL (3.93-5.22) L 09/19/22 07:30 Hgb 9.6 g/dl (12.0-16.0) L 09/19/22 07:30 Hct 29.0 % (34.1-44.9) L 09/19/22 07:30 MCV 89.0 fL (80.0-100.0) 09/19/22 07:30 MCH 29.4 pg (25.0-34.0) 09/19/22 07:30 MCHC 33.1 g/dL (32.0-36.0) 09/19/22 07:30 RDW Std Deviation 43.7 fL (36.4-46.3) 09/19/22 07:30 RDW Coeff of Mio 13.3 % (11.5-14.5) 09/19/22 07:30 Plt Count 258 K/uL (130-400) 09/19/22 07:30 MPV 9.7 fL (9.4-12.3) 09/19/22 07:30 Immature Gran % (Auto) 0.4 % 09/17/22 12:33 Neut % (Auto) 82.4 % 09/17/22 12:33 Lymph % (Auto) 10.4 % 09/17/22 12:33 [place] % (Auto) 5.9 % 09/17/22 12:33 Eos % (Auto) 0.5 % 09/17/22 12:33 Baso % (Auto) 0.4 % 09/17/22 12:33 Neut # (Auto) 9.17 K/uL (1.4-6.5) H 09/17/22 12:33 Lymph # (Auto) 1.15 K/uL (1.2-3.4) L 09/17/22 12:33 [place] # (Auto) 0.66 K/uL (0.24-0.82) 09/17/22 12:33 Eos # (Auto) 0.05 K/uL (0-0.50) 09/17/22 12:33 Baso # (Auto) 0.04 K/uL (0-0.2) 09/17/22 12:33 Immature Gran # (Auto) 0.04 K/uL (0.00-0.02) H 09/17/22 12:33 VBG pH 7.41 (7.36-7.41) 09/17/22 12:42 VBG pCO2 47 mmHg (38-50) 09/17/22 12:42 VBG pO2 42 mmHg 09/17/22 12:42 VBG HCO3 30 mmol/L 09/17/22 12:42 VBG O2 Saturation 74.2 % 09/17/22 12:42 VBG Base Excess 4.3 mEq/L 09/17/22 12:42 Sodium 136 mmol/L (136-145) 09/20/22 07:01 Potassium 4.9 mmol/L (3.5-5.1) 09/20/22 07:01 Chloride 100 mmol/L (98-107) 09/20/22 07:01 Carbon Dioxide 33 mmol/L (21-32) H 09/20/22 07:01 Anion Gap 3 (3-11) 09/20/22 07:01 BUN 60 mg/dl (6-23) H 09/20/22 07:01 Creatinine 1.70 mg/dl (0.6-1.2) H 09/20/22 07:01 Est Cr Clr Drug Dosing 22.2 ml/min 09/20/22 07:01 Est GFR ( Amer) 31.5 ml/min 09/20/22 07:01 Est GFR (Non-Af Amer) 27.2 ml/min 09/20/22 07:01 BUN/Creatinine Ratio 35.3 (10-20) H 09/20/22 07:01 Glucose 123 mg/dl (70-99(Fasting)) H 09/20/22 07:01 Calcium 9.0 mg/dl (8.5-10.1) 09/20/22 07:01 Total Bilirubin 0.3 mg/dl (0.2-1.0) 09/19/22 07:30 AST 13 U/L (13-39) 09/19/22 07:30 ALT 11 U/L (7-52) 09/19/22 07:30 Alkaline Phosphatase 74 U/L (34-104) 09/19/22 07:30 Troponin I High Sens 12.6 pg/ml (0-14) D 09/17/22 12:33 B-Natriuretic Peptide 191 pg/ml (0-100) H 09/17/22 15:04 Total Protein 5.6 gm/dl (6.0-8.3) L 09/19/22 07:30 Albumin 3.0 gm/dl (3.4-5.0) L 09/19/22 07:30 Globulin 2.6 gm/dl (2.5-4.0) 09/19/22 07:30 Albumin/Globulin Ratio 1.2 (0.9-2) 09/19/22 07:30 Lipase 14 U/L (11-82) 09/17/22 12:33 Nasal Screen MRSA (PCR) Negative (Negative) 09/17/22 Unknown Adenovirus (PCR) Not Detected (NotDetected) 09/17/22 14:57 B. pertussis DNA (PCR) Not Detected (NotDetected) 09/17/22 14:57 B.parapertussis DNA PCR Not Detected (NotDetected) 09/17/22 14:57 C. pneumoniae DNA (PCR) Not Detected (NotDetected) 09/17/22 14:57 Coronavirus OC43 (PCR) Not Detected (NotDetected) 09/17/22 14:57 Coronavirus HKU1 (PCR) Not Detected (NotDetected) 09/17/22 14:57 Coronavirus 229E (PCR) Not Detected (NotDetected) 09/17/22 14:57 SARS-CoV-2 (PCR) Not Detected (NotDetected) 09/17/22 14:57 Coronavirus NL63 (PCR) Not Detected (NotDetected) 09/17/22 14:57 Human Metapneumovir PCR Not Detected (NotDetected) 09/17/22 14:57 Influenza Type A (PCR) Not Detected (NotDetected) 09/17/22 14:57 Influenza Type B (PCR) Not Detected (NotDetected) 09/17/22 14:57 M. pneumoniae (PCR) Not Detected (NotDetected) 09/17/22 14:57 Parainfluenza 1 (PCR) Not Detected (NotDetected) 09/17/22 14:57 Parainfluenza 2 (PCR) Not Detected (NotDetected) 09/17/22 14:57 Parainfluenza 3 (PCR) Not Detected (NotDetected) 09/17/22 14:57 Parainfluenza 4 (PCR) Not Detected (NotDetected) 09/17/22 14:57 RSV (RT-PCR) Negative (Neg) 09/17/22 12:33 RSV (PCR) Not Detected (NotDetected) 09/17/22 14:57 Entero/Rhino (PCR) Not Detected (NotDetected) 09/17/22 14:57 Impressions Chest X-Ray 09/17/22 12:15 XR chest 1V portable CLINICAL HISTORY: Chest pain. COMPARISON STUDY: Chest CT May 16, 2022. Chest radiograph June 08, 2022. FINDINGS: Postoperative findings within the right hemithorax are noted. Right lung volume loss has likely increased. There is no pneumothorax. A small right pleural effusion is increased in size since prior exam. Right basilar opacity has increased. In addition, right midlung and left basilar nodular airspace opacities have developed. There is no evidence for pulmonary edema. IMPRESSION: 1. Increase in right lower lung airspace opacity with suspected volume loss. This could reflect pneumonia or atelectasis. Radiographic follow-up is recommended. 2. Interval development of right midlung and left basilar nodular opacities. These are likely infectious however radiographic follow up to ensure resolution is recommended to exclude the possibility of underlying pulmonary lesions. ACT 112: Negative or not required by law. Electronically signed by: Gerardo Pires M.D. 09/17/2022 12:[address] 09/17/22 14:48 CT OF THE CHEST WITHOUT IV CONTRAST CLINICAL HISTORY: Pulmonary nodules with history of lung cancer. COMPARISON STUDY: Chest CT May 16, 2022 and chest radiograph performed earlier today. CT DOSE: 224.04 mGy.cm TECHNIQUE: Axial images of the chest were obtained without IV contrast. Images were reviewed in the axial, sagittal, and coronal planes. IV contrast was not administered for this examination. Automated exposure control was utilized for the study. A dose lowering technique was utilized adhering to the principles of ALARA. FINDINGS: Enlarged mediastinal lymph nodes have mildly increased in size since chest CT of May 16, 2022. Index right paratracheal lymph node on image 86 of 326 measures 1.3 cm in short axis diameter. It previously measured 1.2 cm. A precarinal node on image 124 measures 1.6 cm. It previously measured 1.2 cm. No pericardial effusion. Coronary artery calcification is noted. Postoperative findings consistent with right lower lobectomy are present. There is a trace right pleural effusion. No pneumothorax is noted. There are extensive secretions throughout the right lower lung airways. These have progressed since prior exam. An underlying mass is considered less likely. Bilateral airspace opacities have progressed. Extensive multifocal consolidation within the right lower lung has developed. There is no cavitation. Numerous ill-defined nodules throughout the lungs have also developed since prior CT. These include a 2.1 cm lingular nodule. Larger nodular opacities within the right lower lung are present. Moderate emphysema is noted. There is no left pleural effusion. No suspicious lesions within the visualized bony thorax are noted. Utilized portions of the upper abdomen are unchanged in appearance since prior CT. IMPRESSION: 1. Status post right lower lobectomy. Interval development of extensive right lower lung consolidation and numerous ill-defined nodules throughout the lungs since chest CT of May 16, 2022. Increase in right lower lung volume loss. Given rapid development, an infectious etiology is strongly favored. A neoplastic etiology is within the differential but considered less likely. A short-term follow-up chest CT in one month is recommended. 2. Increase in extensive right lower lung secretions. No underlying mass identified. 3. Increase in mild mediastinal lymphadenopathy. This is likely reactive but can be assessed on follow-up CT. 4. Emphysema. ACT 112: Negative or not required by law. Electronically signed by: Gerardo Pires M.D. 09/17/2022 4:00 PM Hospital Course (1) Consolidation of right lower lobe of lun-year-old woman with history of CAD, paroxysmal AF on Eliquis, COPD on nightly oxygen, squamous cell lung cancer status post right lower lobe lobectomy (2018), hypertension, hyperlipidemia, CKD4 who presented to the emergency room with complaint of dyspnea, chest pain, cough, diarrhea x1 day. Acute hypoxic resp failure sec to RLL pneumonia -Patient stable on room air at time of admission. Also afebrile. -History of COPD on albuterol, breo ellipta, spiriva at home, will cont. home regimen on discharge -Respiratory panel completely negative. Blood cultures no growth thus far. -CT chest, CXR: showed RLL opacity suggestive of acute infectious process. Patient does have recent history of squamous cell lung cancer s/p RLL lobectomy in 2019. Follow-up CT x1 month recommended. -Received p.o. prednisone 50 mg, duo nebs, CTX plus azithromycin x1 dose each in the ED. -Evaluated by speech and swallow: FEES unremarkable for aspiration. Upgraded to regular diet. * Unasyn d/c'd. Started augmentin x7 days total. Transitioned to PO azithromycin (5 days total). Scripts sent to pharmacy. * taper prednisone on discharge. 30mg x3 days, 20mg x3 days, 10mg x3days * supplemental oxygen prn at home (goal SPO2: 88-92%) -f/u pcp COPD * As above. CAD * Continue home aspirin, simvastatin Chronic HFpEF * Continue home Lasix Paroxysmal A. fib * Continue home carvedilol, Eliquis Hyperlipidemia * Continue simvastatin, as above Hypertension * Continue carvedilol, hydralazine. (2) Hypoxia: (3) Coronary artery disease: (4) Chronic diastolic heart failure: (5) Paroxysmal atrial fibrillation: (6) Hyperlipidemia: (7) Hypertension: Total Time Total Time Spent Total Time Spent (In Minutes): <30 Discharge Plan Discharge Items Patient Disposition: Home - Self-Care Reason For Visit: COUGH,SOB,CONGESTION Discharge Diagnosis: COPD exacerbation, pneumonia Activity: Per Instructions section Non-emergency contact: Primary Care Provider Call non-emergency contact if: you have any medication questions and your symptoms worsen Follow-up/Referrals: Ritu Pacheco MD [Primary Care Provider] - 09/27/22 12:15 pm (Appointment with Renetta ULRICH 09/27/22 at 12:15. Please arrive 15 minutes prior to appointment time ) Diet: Heart Healthy Addtl Attending Provider Instructions: You were admitted to the hospital after experiencing shortness of breath at home. You were found to be in a COPD exacerbation likely secondary to a pneumonia. We have treated you with antibiotics, steroids, and inhalers and you have been doing progressively better by the day. On discharge you are to continue your antibiotics orally which will include 2 different medications, azithromycin and Augmentin. We will also have you on an oral steroid taper which will be written down below on how to take the medication. You may use your oxygen as needed at home as you were prior to your hospitalization. Please schedule an appointment with your primary care provider in the next week or so for follow-up to make sure that your symptoms have resolved. Your primary care provider can schedule a repeat chest CT in about a month to look for complete resolution of the pneumonia. New Meds: available at [facility] -Complete azithromycin antibiotic to completion as prescribed -Complete augmentin antibiotic to completion as prescribed -Will complete a prednisone taper as follows: 30mg daily x3 days, 20mg daily x3 days, 10mg daily x3 days Pending Studies at Discharge: No Stand-Alone Forms: My [facility], Smoking Cessation Medications and DC Order Prescriptions: New azithromycin 250 mg tablet 250 mg PO QAM 3 Days Qty: 3 0RF Rx Instructions: start 09/21/22 amoxicillin-pot clavulanate 875-125 mg tablet 1 tab PO BID Qty: 11 0RF Rx Instructions: next dose evening of 09/20/22 prednisone 10 mg tablet 10 mg PO DAILY Qty: 18 0RF Rx Instructions: starting 09/21/22: 30mg x3 days, 20mg x3 days, 10mg x3 day Continued nystatin 100,000 unit/gram cream 1 applic TOP BID PRN (Reason: .) Qty: 15 2RF Breo Ellipta 100-25 mcg/dose blister with device 1 inh inhalation DAILY 90 Days Qty: 3 3RF ergocalciferol (vitamin D2) 1,250 mcg (50,000 unit) capsule 50,000 unit PO MONTHLY Qty: 3 3RF allopurinol 100 mg tablet 100 mg PO DAILY Qty: 30 5RF apixaban 2.5 mg tablet 2.5 mg PO BID Qty: 180 3RF simvastatin 40 mg tablet 40 mg PO HS Qty: 90 3RF hydralazine 50 mg tablet 75 mg PO TID 30 Days Qty: 135 5RF furosemide [Lasix] 20 mg tablet 20 mg PO QAM Qty: 30 5RF carvedilol 25 mg tablet 25 mg PO BID Qty: 180 3RF Rx Instructions: must administer with a meal/food (DME) Oxygen Home Liters Per Minute See Dose Instructions .ROUTE .MEDSUPPLY Qty: 1 0RF Dose Instruction: As directed Rx Instructions: As directed albuterol sulfate [Ventolin HFA] 90 mcg/actuation HFA aerosol inhaler 1 puffs INH Q6H PRN (Reason: Shortness Of Breath) ferrous sulfate 325 mg (65 mg iron) Tablet 325 mg PO QAM cyanocobalamin (vitamin B-12) [Vitamin B-12] 1,000 mcg Tablet 1,000 mcg PO QAM docusate sodium 100 mg capsule 100 mg PO DAILY PRN (Reason: Constipation) Spiriva Respimat 2.5 mcg/actuation mist 1 inh inhalation BID aspirin 81 mg Tablet,Delayed Release (Dr/Ec) 81 mg PO QAM Qty: 30 0RF Rx Instructions: OTC No Action ipratropium-albuterol 0.5 mg-3 mg(2.5 mg base)/3 mL solution for nebulization 3 ml NEB QID PRN (Reason: shortness of breath or wheezing) Qty: 180 0RF Discharge Orders: Discharge Order (Routine); Ordered 09/20/22 Ordered By: Vivek Castillo Admission Data Admit Date/Time: 09/17/22 14:04 Attending Provider: Huey Lancaster Admit Provider: Jose C Jung Primary Care Provider: Ritu Pacheco V. Other Providers: Jose C Jung Other Interventions: Discharge Summary Assessment (RN) Last Done: 09/20/22 14:05 Supervising Physician Co-Signing Physician Notes I personally examined the patient and verified all nugent points of history and exam, discussed case, and agree with decision making with Dr Castillo. Feels up to going home. No new complaints. Discussed home oxygen and anticipated need for 24-hour day oxygen for the short-termhas equipment at home, has a pulse ox, expresses good understanding. Vitals noted, in general she is awake and alert pleasant no distress. HEENT normocephalic atraumatic mucous membranes moist. Lungs clear to auscultation bilaterally no rales rhonchi or wheezes with good effort no accessory muscle use Right lower lobe community-acquired pneumonia with subsequent COPD exacerbationimproving. Improving. Stable for home. Discussed supplemental oxygen for the short but foreseeable future. She expresses good understanding/comfort with this. Steroid burst, finish course of azithromycin. Outpatient follow-up. Otherwise as above Resident Activity Tracking Resident Involvement: Resident Care Provided Care Provided: Adult Hospital Medicine
--- NOTE | 2022-09-20 18:57 | Billing Data ---
Date of Service September 20, 2022 Coding Level of Care Code 61098 OBS Care - Discharge
[2022-09-28] MEDS ORDERED: ERGOCALCIFEROL 50,000 UNITS 1250 MCG CAP PO SCH (09:00)
== END 2022-09-20 14:50 | disposition home or self-care (01) ==
LOC: 2N 12:06 → ED 12:06 → SUATTDRO 14:04 → 2N 16:53

== ENCOUNTER 2022-09-22 11:11 | Inpatient (IN) ==
[2022-09-22] MEDS ORDERED: ACETAMINOPHEN 500 MG TAB PO STA (11:50)
[2022-09-22] MEDS ORDERED: SODIUM CHLORIDE 0.9% 1000ML 500 ML IV ONE (11:50)
--- NOTE | 2022-09-22 11:56 | Emergency Department Note ---
Impression & Plan RLL pneumonia, Pleural effusion on right, Failure of outpatient treatment, Leukocytosis, Generalized weakness ED Provider Note Name: HENRI BOWLING Age: 82 Sex: F Arrives Via: Ambulance Informant: Patient, EMS ED Provider: See Pathak MD Chief Complaint: weakness Impression: As per Impressions Above Medical Decision Makin-year-old female with significant past medical history arrives for evaluation of worsening weakness. She had been hospitalized for the last week for pneumonia and was discharged on Augmentin. Patient arrives with worsening shortness of breath generalized weakness and low-grade fever. My examination I am concerned for worsening infection. Blood cultures and lactic acid were obtained. Fortunately lactate and blood pressure are okay. Procalcitonin is mildly elevated. She also has an elevated white blood cell count. Her chest x- ray shows mildly worsening of the right lower lobe infiltrate and pleural effusion. She was given empiric IV cefepime and will await a MRSA swab prior to starting further antibiotics. I did discuss the case with the on-call hospitalist who will evaluate her further. Patient is not septic she is comfortable on 2 L nasal cannula she is agreeable to hospitalization. I will note the patient is on a blood thinner and had a fall but she did not hit her head it was from the height of the chair and she has no headache or neck pain. I do not think that CT imaging of the head or neck is indicated at this time. Prior Medical Record and Triage/Nursing Notes reviewed by Me Additional history obtained from chart and EMS Differentials:Infection, dehydration, metabolic abnormality, hypo/hyperglycemia, electrolyte disturbance, anemia, hypoxia, cardiac sources, intracerebral event, toxicologic, neurologic, as well as other pathologies. Vital Signs: reviewed and remarkable for borderline fever Interventions: cefepime, nss bolus Labs:Reviewed and remarkable for elevated white blood cell count, elevated procalcitonin Imagin view chest x-ray with right lower lobe infiltrate and moderate pleural effusion mildly increased from previous chest x-ray Consults:Dr Erich BELLO Hospitalist Plan: Disposition:Hospitalization. Condition: Stable - fair History of Present Illness:82-year-old female arrives for evaluation of weakness. Patient was recently hospitalized for pneumonia and discharged a few days ago. She notes she has been at home and gradually worsening weakness. She is slipped out of her chair twice now and then this morning she slipped out of her chair she was too weak to get up. She notes she feels a bit shaky and tire d. Notes her breathing is getting worse. States she uses oxygen 2 L chronically. States a junky productive cough and feeling fatigued. Denies any fevers at home, vomiting, abdominal pain, headache, neck pain, head injury or other concerning signs or symptoms. She has no other injuries but notes her back is a bit sore after the fall. No medications prior to arrival. Exertion makes worse rest makes better ROS: See above HPI for pertinent positives & negatives. A total of 10 systems reviewed and were otherwise negative. Past Medical History:See Below Past Surgical History:See Below Family History:See Below Social History:See Below Home Medications:See Below Allergies:chlorhexidine Vitals:Blood Pressure: 123/63, Pulse 99, RR 18, T 37.9C, O2 99% on 2L NC Physical Exam: GENERAL: Patient is ill appearing and in moderate distress. Warm to touch EYES: No scleral icterus, unremarkable pupils. ENT: Mucous membranes dry, no nasal congestion. NECK: No masses appreciated, nomeningismus, trachea is midline. RESPIRATORY: Minimal breath sounds right lungs, junky cough CARDIOVASCULAR: Tachy.No murmurs, rubs, gallops appreciated. GASTROINTESTINAL: Abdomen soft, non-tender, no peritonitis.Bowel sounds positive.No masses appreciated. BACK: No midline tenderness, no CVA tenderness EXTREMITIES: Normal motion all extremities, no cyanosis, no edema. NEUROLOGIC: Generalized weakness. Alert and oriented, no acute motor or sensory deficits, no focal weakness, cranial nerves grossly intact. SKIN: No rash, no jaundice, no diaphoresis. PSYCH: Appropriate GCS: 15 ED Course: Times/Reassessments: Patient feeling better after resting in the bed for little bit and getting some IV fluids. She is agreeable to hospitalization See Pathak MD Past Med/Surg History Medical History (Updated 09/22/22 @ 13:23 by See Pathak MD) Acute on chronic diastolic (congestive) heart failure Acute respiratory failure with hypoxia Acute severe vertigo Acute upper abdominal pain Anemia Cardiomyopathy Cellulitis CKD (chronic kidney disease) BASELINE CREATININE 1.6-1.8 PER CHART REVIEW COPD (chronic obstructive pulmonary disease) COPD exacerbation Coronary artery disease NON-OBSRTUCTIVE Cough Dyspnea Edema due to hypoalbuminemia Elevated serum creatinine Fall Hand pain History of abdominal aortic aneurysm (AAA) S/P REPAIR [address] (myocardial infarction) 2016= MEDICALLY MANAGED Hyperglycemia Hyperlipidemia Hypertension Hypoxia Knee pain, left Left wrist pain Lung nodule Mitral regurgitation Multinodular goiter Nasal bleeding Nocturnal hypoxemia 2L AT HS Osteoarthritis Pre-syncope Pulmonary embolism RECURRENT (~2012) ON COUMADIN 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 Right lower lobe pneumonia Sacroiliitis Secondary renal hyperparathyroidism Shingles Takotsubo syndrome 2016 URI (upper respiratory infection) Vitamin D deficiency Surgical History AAA (abdominal aortic aneurysm) S/P REPAIR 2016 History of bladder surgery TURBT History of bronchoscopy EBUS, Navigational bronch with biopsy: 02/21/19: Grade 2 view, MAC 3, ETT 8.5 History of lobectomy of lung History of tooth extraction 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) Family History Sister Skin cancer Malignant neoplasm of bone Mother Cancer Daughter Diabetes Hypertension Brother Skin cancer Other Dyslipidemia Denies family history of Colon cancer Ovarian cancer Prostate cancer Kidney disease Myocardial infarction Breast cancer Lung cancer Stroke Social History Smoking Status: Former smoker Cigarettes Per Day: 30; Second Hand Exposure: No; Hx Alcohol Use: No Hx Substance Use: No Preferred Language: Cymro Communication Ability: Effective Visual Impairment: Limited Hearing Ability: Normal Grounds Manager Required: No Beliefs That Will Affect Care: None marital status: / Current Living Situation: Alone current occupational status: retired How many Children do You have: 1 Feels Safe at Home: Yes Childhood Exposure to Second-Hand Smoke: Yes caffeine: Yes Dental Care, Regularly: No Physical Activity Frequency: Does not Exercise Seatbelt Use: always Sunscreen Use: No Assistive Devices: Cane, Oxygen - at Night, Oxygen - Continuous and Walker Allergies Allergies Allergy/AdvReac Type Severity Reaction Status Date / Time chlorhexidine Allergy Mild HIVES,RED Verified 09/17/22 12:28 RASH Home Meds Home Medications Medication Instructions Recorded Confirmed ferrous sulfate 325 mg (65 mg 325 mg PO QAM 12/23/18 09/17/22 iron) tablet cyanocobalamin (vitamin B-12) 1,000 mcg PO QAM 05/02/19 09/17/22 1,000 mcg tablet (Vitamin B-12) docusate sodium 100 mg capsule 100 mg PO DAILY PRN Constipation 06/05/19 09/17/22 albuterol sulfate 90 mcg/actuation 1 puffs inhalation Q6H PRN 07/31/19 09/17/22 aerosol inhaler (Ventolin HFA) Shortness Of Breath tiotropium bromide 2.5 1 inh inhalation BID 05/16/22 09/17/22 mcg/actuation mist for inhalation (Spiriva Respimat) Previous Rx's Medication Instructions Recorded Oxygen Home #1 ea 05/16/19 nystatin 100,000 unit/gram topical 1 applic topical BID PRN . #15 10/22/20 cream grams fluticasone furoate 100 1 inh inhalation DAILY 90 days #3 11/16/21 mcg-vilanterol 25 mcg/dose Inhalers inhalation powder (Breo Ellipta) ergocalciferol (vitamin D2) 1,250 50,000 unit PO MONTHLY #3 caps 12/27/21 mcg (50,000 unit) capsule allopurinol 100 mg tablet 100 mg PO DAILY #30 tabs 05/10/22 apixaban 2.5 mg tablet 2.5 mg PO BID #180 tabs 05/11/22 aspirin 81 mg tablet,delayed 81 mg PO QAM #30 tabs 05/24/22 release simvastatin 40 mg tablet 40 mg PO HS #90 tabs 06/07/22 hydralazine 50 mg tablet 75 mg PO TID 30 days #135 tabs 07/06/22 amoxicillin 875 mg-potassium 1 tab PO BID #11 tabs 09/20/22 clavulanate 125 mg tablet azithromycin 250 mg tablet 250 mg PO QAM 3 days #3 tabs 09/20/22 carvedilol 25 mg tablet 25 mg PO BID #180 tabs 09/20/22 furosemide 20 mg tablet (Lasix) 20 mg PO QAM #30 tabs 09/20/22 ipratropium 0.5 mg-albuterol 3 mg 3 ml NEB QID PRN shortness of 09/20/22 (2.5 mg base)/3 mL nebulization breath or wheezing #180 mL soln prednisone 10 mg tablet 10 mg PO DAILY #18 tabs 09/20/22 Results & Data (ED) Vital Signs Vital Signs - 24 hr 09/22/22 11:04 09/22/22 11:18 Temperature 37.9 C H Temperature Source Oral Pulse Rate 99 H Pulse Rate [Apical] 99 H Respiratory Rate 18 18 Blood Pressure 126/63 Blood Pressure [Left Arm] 123/63 Blood Pressure Mean 84 Blood Pressure Mean [Left Arm] 83 Pulse Oximetry 99 99 Oxygen Delivery Method Room Air Oxygen Flow Rate 2 Sepsis Recent Fever Within 48 Hours No Sepsis New/Unexplained Change in Mental Status No Sepsis Action Taken by Nursing No Action Required Laboratory Data Result diagrams: 09/22/22 12:12 09/22/22 12:12 Lab Results 09/22/22 09/22/22 09/22/22 Range/Units 12:12 12:12 12:12 WBC 20.91 H (4.8-10.8) K/ul RBC 3.63 L (3.93-5.22) M/uL Hgb 10.6 L (12.0-16.0) g/dl Hct 32.7 L (34.1-44.9) % MCV 90.1 (80.0-100.0) fL MCH 29.2 (25.0-34.0) pg MCHC 32.4 (32.0-36.0) g/dL RDW Std Deviation 46.3 (36.4-46.3) fL RDW Coeff of Mio 14.0 (11.5-14.5) % Plt Count 291 (130-400) K/uL MPV 9.4 (9.4-12.3) fL Immature Gran % (Auto) 1.2 % Neut % (Auto) 87.4 % Lymph % (Auto) 4.4 % Mckinley % (Auto) 6.5 % Eos % (Auto) 0.3 % Baso % (Auto) 0.2 % Neut # (Auto) 18.28 H (1.4-6.5) K/uL Lymph # (Auto) 0.91 L (1.2-3.4) K/uL Mckinley # (Auto) 1.36 H (0.24-0.82) K/uL Eos # (Auto) 0.07 (0-0.50) K/uL Baso # (Auto) 0.04 (0-0.2) K/uL Immature Gran # (Auto) 0.25 H (0.00-0.02) K/uL PT 10.8 (9.0-12.0) Seconds INR 1.0 (0.9-1.1) VBG pH (7.36-7.41) VBG pCO2 (38-50) mmHg VBG pO2 mmHg VBG HCO3 mmol/L VBG O2 Saturation % VBG Base Excess mEq/L Sodium 137 (136-145) mmol/L Potassium 3.9 (3.5-5.1) mmol/L Chloride 101 (98-107) mmol/L Carbon Dioxide 28 (21-32) mmol/L Anion Gap 8 (3-11) BUN 53 H (6-23) mg/dl Creatinine 1.36 H (0.6-1.2) mg/dl Est Cr Clr Drug Dosing 29.6 ml/min Est GFR ( Amer) 41.3 ml/min Est GFR (Non-Af Amer) 35.6 ml/min BUN/Creatinine Ratio 39.0 H (10-20) Glucose 107 H (70-99(Fasting)) mg/dl Lactate (0.4-2.0) mmol/L Calcium 9.3 (8.5-10.1) mg/dl Magnesium 2.0 (1.7-2.4) mg/dl Total Creatine Kinase 39 (26-192) U/L Troponin I High Sens 24.0 H D (0-14) pg/ml Procalcitonin (0-0.5) ng/ml 09/22/22 09/22/22 09/22/22 Range/Units 12:12 12:12 12:14 WBC (4.8-10.8) K/ul RBC (3.93-5.22) M/uL Hgb (12.0-16.0) g/dl Hct (34.1-44.9) % MCV (80.0-100.0) fL MCH (25.0-34.0) pg MCHC (32.0-36.0) g/dL RDW Std Deviation (36.4-46.3) fL RDW Coeff of Mio (11.5-14.5) % Plt Count (130-400) K/uL MPV (9.4-12.3) fL Immature Gran % (Auto) % Neut % (Auto) % Lymph % (Auto) % Mckinley % (Auto) % Eos % (Auto) % Baso % (Auto) % Neut # (Auto) (1.4-6.5) K/uL Lymph # (Auto) (1.2-3.4) K/uL Mckinley # (Auto) (0.24-0.82) K/uL Eos # (Auto) (0-0.50) K/uL Baso # (Auto) (0-0.2) K/uL Immature Gran # (Auto) (0.00-0.02) K/uL PT (9.0-12.0) Seconds INR (0.9-1.1) VBG pH 7.41 (7.36-7.41) VBG pCO2 46 (38-50) mmHg VBG pO2 40 mmHg VBG HCO3 29 mmol/L VBG O2 Saturation 71.4 % VBG Base Excess 3.8 mEq/L Sodium (136-145) mmol/L Potassium (3.5-5.1) mmol/L Chloride (98-107) mmol/L Carbon Dioxide (21-32) mmol/L Anion Gap (3-11) BUN (6-23) mg/dl Creatinine (0.6-1.2) mg/dl Est Cr Clr Drug Dosing ml/min Est GFR ( Amer) ml/min Est GFR (Non-Af Amer) ml/min BUN/Creatinine Ratio (10-20) Glucose (70-99(Fasting)) mg/dl Lactate 1.3 (0.4-2.0) mmol/L Calcium (8.5-10.1) mg/dl Magnesium (1.7-2.4) mg/dl Total Creatine Kinase (26-192) U/L Troponin I High Sens (0-14) pg/ml Procalcitonin 1.35 H (0-0.5) ng/ml Administered Medications Discontinued Medications Acetaminophen (Acetaminophen 500 Mg Tab) 1,000 mg PO NOW STA Stop: 09/22/22 11:51 Last Admin: 09/22/22 12:30 Dose: 1,000 mg Documented By: CAMRON Sodium Chloride (Nss 1000ml) 500 mls @ 999 mls/hr IV .Q31M ONE Stop: 09/22/22 12:20 Last Admin: 09/22/22 12:32 Dose: 999 mls/hr Documented By: CAMRON Imaging Data Radiologist's Impression: Chest X-Ray 09/22/22 11:50 SINGLE VIEW CHEST CLINICAL HISTORY: Dyspnea. Generalized weakness. Pneumonia FINDINGS: 2 AP, portable, upright chest radiographs are compared to chest x-ray and chest CT dated 09/17/2022. The heart is mildly enlarged noting atherosclerotic calcification of the thoracic aorta. The pulmonary vasculature is noncontrast. There is volume loss in the right lung with mild rightward shift of the mediastinum. Emphysema and chronic interstitial thickening is similar to previous. Airspace consolidation is again seen at the right lung base with a right pleural effusion. Milder patchy consolidation is seen in the right upper lobe and at the left lung base. No pneumothorax is seen. The skeletal structures are osteopenic. There are healed right-sided rib fractures. IMPRESSION: 1. Multifocal airspace consolidation and small right pleural effusion as above. This is similar to 09/17/2022 examination, and the appearance is typical for pneumonia/aspiration pneumonitis. Clinical correlation will be required and radiographic follow-up to resolution is recommended. 2. Cardiomegaly and emphysema. ACT 112: Negative or not required by law. Electronically signed by: Pradeep Avina M.D. 09/22/2022 12:52 PM Discharge Plan Visit Data Chief Complaint: Fall Stated Complaint: FALL ED Provider: See Pathak Discharge Problem: RLL pneumonia, Pleural effusion on right, Failure of outpatient treatment, Leukocytosis, Generalized weakness Forms Stand Alone Forms: [facility] Prescriptions Prescriptions: No Action nystatin 100,000 unit/gram cream 1 applic TOP BID PRN (Reason: .) Qty: 15 2RF Breo Ellipta 100-25 mcg/dose blister with device 1 inh inhalation DAILY 90 Days Qty: 3 3RF ergocalciferol (vitamin D2) 1,250 mcg (50,000 unit) capsule 50,000 unit PO MONTHLY Qty: 3 3RF allopurinol 100 mg tablet 100 mg PO DAILY Qty: 30 5RF apixaban 2.5 mg tablet 2.5 mg PO BID Qty: 180 3RF simvastatin 40 mg tablet 40 mg PO HS Qty: 90 3RF hydralazine 50 mg tablet 75 mg PO TID 30 Days Qty: 135 5RF furosemide [Lasix] 20 mg tablet 20 mg PO QAM Qty: 30 5RF carvedilol 25 mg tablet 25 mg PO BID Qty: 180 3RF Rx Instructions: must administer with a meal/food ipratropium-albuterol 0.5 mg-3 mg(2.5 mg base)/3 mL solution for nebulization 3 ml NEB QID PRN (Reason: shortness of breath or wheezing) Qty: 180 0RF (DME) Oxygen Home Liters Per Minute See Dose Instructions .ROUTE .MEDSUPPLY Qty: 1 0RF Dose Instruction: As directed Rx Instructions: As directed albuterol sulfate [Ventolin HFA] 90 mcg/actuation HFA aerosol inhaler 1 puffs INH Q6H PRN (Reason: Shortness Of Breath) ferrous sulfate 325 mg (65 mg iron) Tablet 325 mg PO QAM cyanocobalamin (vitamin B-12) [Vitamin B-12] 1,000 mcg Tablet 1,000 mcg PO QAM docusate sodium 100 mg capsule 100 mg PO DAILY PRN (Reason: Constipation) Spiriva Respimat 2.5 mcg/actuation mist 1 inh inhalation BID aspirin 81 mg Tablet,Delayed Release (Dr/Ec) 81 mg PO QAM Qty: 30 0RF Rx Instructions: OTC azithromycin 250 mg tablet 250 mg PO QAM 3 Days Qty: 3 0RF Rx Instructions: start 09/21/22 amoxicillin-pot clavulanate 875-125 mg tablet 1 tab PO BID Qty: 11 0RF Rx Instructions: next dose evening of 09/20/22 prednisone 10 mg tablet 10 mg PO DAILY Qty: 18 0RF Rx Instructions: starting 09/21/22: 30mg x3 days, 20mg x3 days, 10mg x3 day Referrals Referrals: Ritu Pacheco MD [Primary Care Provider] - : RLL pneumonia Qualifiers: Pneumonia type: aspiration pneumonia Aspiration pneumonia type: due to gastric secretions Qualified Code(s): J69.0 - Pneumonitis due to inhalation of food and vomit Leukocytosis Qualifiers: Leukocytosis type: unspecified Qualified Code(s): D72.829 - Elevated white blood cell count, unspecified
[2022-09-22 12:28] LABS: Base Excess VBG 3.8 mEq/L; HCO3 VBG 29 mmol/L; Oxygen Saturation VBG 71.4 %; PCO2 VBG 46 mmHg (38-50); PO2 VBG 40 mmHg; pH VBG 7.41 (7.36-7.41)
[2022-09-22 12:31] LABS: Basophils # (auto) 0.04 K/uL (0-0.2); Basophils % (auto) 0.2 %; Eosinophils # (auto) 0.07 K/uL (0-0.50); Eosinophils % (auto) 0.3 %; Hematocrit (blood only) 32.7 % (34.1-44.9); Hemoglobin 10.6 g/dl (12.0-16.0); Immature Granulocytes # (auto) 0.25 K/uL (0.00-0.02); Immature Granulocytes % (auto) 1.2 %; Lymphocytes # (auto) 0.91 K/uL (1.2-3.4); Lymphocytes % (auto) 4.4 %; Mean Corpuscular Hemoglobin 29.2 pg (25.0-34.0); Mean Corpuscular Hgb Conc 32.4 g/dL (32.0-36.0); Mean Corpuscular Volume 90.1 fL (80.0-100.0); Mean Platelet Volume 9.4 fL (9.4-12.3); Monocytes # (auto) 1.36 K/uL (0.24-0.82); Monocytes % (auto) 6.5 %; Neutrophils # (auto) 18.28 K/uL (1.4-6.5); Neutrophils % (auto) 87.4 %; Platelet Count 291 K/uL (130-400); RDW Standard Deviation 46.3 fL (36.4-46.3); Red Blood Count 3.63 M/uL (3.93-5.22); White Blood Count 20.91 K/ul (4.8-10.8)
[2022-09-22 12:43] LABS: Prothrombin Time 10.8 Seconds (9.0-12.0)
[2022-09-22] MEDS ORDERED: CEFEPIME 2,000 MG/20 ML VIAL IV STA (12:48)
--- NOTE | 2022-09-22 12:53 | XRay Report ---
SINGLE VIEW CHEST CLINICAL HISTORY: Dyspnea. Generalized weakness. Pneumonia FINDINGS: 2 AP, portable, upright chest radiographs are compared to chest x-ray and chest CT dated . The heart is mildly enlarged noting atherosclerotic calcification of the thoracic aorta. Th e pulmonary vasculature is noncontrast. There is volume loss in the right lung with mild rightward sh ift of the mediastinum. Emphysema and chronic interstitial thickening is similar to previous. Airspac e consolidation is again seen at the right lung base with a right pleural effusion. Milder patchy con solidation is seen in the right upper lobe and at the left lung base. No pneumothorax is seen. The sk eletal structures are osteopenic. There are healed right-sided rib fractures. IMPRESSION: 1. Multifocal airspace consolidation and small right pleural effusion as above. This is similar to examination, and the appearance is typical for pneumonia/aspiration pneumonitis. Clinical co rrelation will be required and radiographic follow-up to resolution is recommended. 2. Cardiomegaly and emphysema. ACT 112: Negative or not required by law. Electronically signed by: Pradeep Avina M.D. 09/22/2022 12:52 PM
[2022-09-22 13:01] LABS: Calcium 9.3 mg/dl (8.5-10.1); Creatinine Clr Calc Pharmacy 29.6 ml/min; Est GFR (African American) 41.3 ml/min; Est GFR (Non-African American) 35.6 ml/min; Potassium 3.9 mmol/L (3.5-5.1)
--- NOTE | 2022-09-22 13:11 | History & Physical Report ---
Date of Service September 22, 2022 Assessment & Plan (1) Consolidation of right lower lobe of lung: Plan: Patient recurs with falls at home and weakness. Has persistent right lower lung consolidation during her last hospital stay there was concern for infection versus possible recurrence of neoplasm as the patient previous had a right lower lobectomy. Patient was discharged on Augmentin and azithromycin. Because of recurrence fever leukocytosis the patient will be switched to gram-negative coverage of cefepime and MRSA coverage pending a MRSA nasal swab. Consultation of pulmonary medicine will be undertaken to see if further diagnostic maneuvers should be undertaken to evaluate this right lower lobe (2) Coronary artery disease: Plan: continues on aspirin, carvedilol. lasix 20, hydralazine 50 TID (3) Chronic diastolic heart failure: Plan: controlled with carvedilol and lasix (4) History of pulmonary embolism: Plan: on chronic apixaban therapy (5) Paroxysmal atrial fibrillation: Plan: last hospital stay was in sinus rhythm and on rate control of coreg and chornic apixiban (6) CKD (chronic kidney disease), stage III: Plan: stable, on hydralazine for bp control (7) COPD (chronic obstructive pulmonary disease): Plan: will have on prednisone and spiriva, fluticasone/vilanterol offer prn duonebs History of Present Illness Primary Care Provider: Ritu Pacheco MD 82-year-old female recently admitted and discharged from our facility discharged September 20 where she was here for acute epoxy respiratory failure secondary to her right lower lobe pneumonia. She was discharged on Augmentin after being started on Unasyn. Continued on azithromycin and on prednisone tapering dosing. He is having increasing falls at home she still continues to be febrile in the emergency department has a white count of 20,000 which may be influenced by her prednisone tapering dose and has a troponin of 24 CT scan of her chest on September 17 shows a status post right lower lobectomy with interval development of extensive right lower lobe lung consolidation and ill-defined nodules throughout the lungs new since May 16, 2022 Allergies Allergy/AdvReac Type Severity Reaction Status Date / Time chlorhexidine Allergy Mild HIVES,RED Verified 09/17/22 12:28 RASH Home Medications Medication Instructions Recorded Confirmed Type ferrous sulfate 325 mg (65 mg 325 mg PO QAM 12/23/18 09/17/22 History iron) tablet cyanocobalamin (vitamin B-12) 1,000 mcg PO QAM 05/02/19 09/17/22 History 1,000 mcg tablet (Vitamin B-12) Oxygen Home #1 ea 05/16/19 09/02/22 Rx docusate sodium 100 mg capsule 100 mg PO DAILY PRN Constipation 06/05/19 09/17/22 History albuterol sulfate 90 mcg/actuation 1 puffs inhalation Q6H PRN 07/31/19 09/17/22 History aerosol inhaler (Ventolin HFA) Shortness Of Breath nystatin 100,000 unit/gram topical 1 applic topical BID PRN . #15 10/22/20 09/17/22 Rx cream grams fluticasone furoate 100 1 inh inhalation DAILY 90 days #3 11/16/21 09/17/22 Rx mcg-vilanterol 25 mcg/dose Inhalers inhalation powder (Breo Ellipta) ergocalciferol (vitamin D2) 1,250 50,000 unit PO MONTHLY #3 caps 12/27/21 09/17/22 Rx mcg (50,000 unit) capsule allopurinol 100 mg tablet 100 mg PO DAILY #30 tabs 05/10/22 09/17/22 Rx apixaban 2.5 mg tablet 2.5 mg PO BID #180 tabs 05/11/22 09/17/22 Rx tiotropium bromide 2.5 1 inh inhalation BID 05/16/22 09/17/22 History mcg/actuation mist for inhalation (Spiriva Respimat) aspirin 81 mg tablet,delayed 81 mg PO QAM #30 tabs 05/24/22 09/17/22 Rx release simvastatin 40 mg tablet 40 mg PO HS #90 tabs 06/07/22 09/17/22 Rx hydralazine 50 mg tablet 75 mg PO TID 30 days #135 tabs 07/06/22 09/17/22 Rx amoxicillin 875 mg-potassium 1 tab PO BID #11 tabs 09/20/22 09/21/22 Rx clavulanate 125 mg tablet azithromycin 250 mg tablet 250 mg PO QAM 3 days #3 tabs 09/20/22 Rx carvedilol 25 mg tablet 25 mg PO BID #180 tabs 09/20/22 09/21/22 Rx furosemide 20 mg tablet (Lasix) 20 mg PO QAM #30 tabs 09/20/22 Rx ipratropium 0.5 mg-albuterol 3 mg 3 ml NEB QID PRN shortness of 09/20/22 Rx (2.5 mg base)/3 mL nebulization breath or wheezing #180 mL soln prednisone 10 mg tablet 10 mg PO DAILY #18 tabs 09/20/22 09/21/22 Rx Past Med/Surg History Medical History (Updated 09/22/22 @ 13:23 by See Pathak MD) Acute on chronic diastolic (congestive) heart failure Acute respiratory failure with hypoxia Acute severe vertigo Acute upper abdominal pain Anemia Cardiomyopathy Cellulitis CKD (chronic kidney disease) BASELINE CREATININE 1.6-1.8 PER CHART REVIEW COPD (chronic obstructive pulmonary disease) COPD exacerbation Coronary artery disease NON-OBSRTUCTIVE Cough Dyspnea Edema due to hypoalbuminemia Elevated serum creatinine Fall Hand pain History of abdominal aortic aneurysm (AAA) S/P REPAIR 2016 History of [place] (myocardial infarction) 2016= MEDICALLY MANAGED Hyperglycemia Hyperlipidemia Hypertension Hypoxia Knee pain, left Left wrist pain Lung nodule Mitral regurgitation Multinodular goiter Nasal bleeding Nocturnal hypoxemia 2L AT HS Osteoarthritis Pre-syncope Pulmonary embolism RECURRENT (~2012) ON COUMADIN 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 Right lower lobe pneumonia Sacroiliitis Secondary renal hyperparathyroidism Shingles Takotsubo syndrome 2016 URI (upper respiratory infection) Vitamin D deficiency Surgical History AAA (abdominal aortic aneurysm) S/P REPAIR 2016 History of bladder surgery TURBT History of bronchoscopy EBUS, Navigational bronch with biopsy: 02/21/19: Grade 2 view, MAC 3, ETT 8.5 History of lobectomy of lung History of tooth extraction 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) Family History Sister Skin cancer Malignant neoplasm of bone Mother Cancer Daughter Diabetes Hypertension Brother Skin cancer Other Dyslipidemia Denies family history of Colon cancer Ovarian cancer Prostate cancer Kidney disease Myocardial infarction Breast cancer Lung cancer Stroke Social History Smoking Status: Former smoker Cigarettes Per Day: 30; Second Hand Exposure: No; Hx Alcohol Use: No Hx Substance Use: No Preferred Language: Albanian Communication Ability: Effective Visual Impairment: Limited Hearing Ability: Normal 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 Beliefs That Will Affect Care: None marital status: / Current Living Situation: Alone current occupational status: retired How many Children do You have: 1 Other Information That Helps Us Care for You: No Feels Safe at Home: Yes Safety Concerns: Feels Safe At This Time Childhood Exposure to Second-Hand Smoke: Yes caffeine: Yes Dental Care, Regularly: No Physical Activity Frequency: Does not Exercise Seatbelt Use: always Sunscreen Use: No Assistive Devices: Cane, Denture - Upper, Glasses and Walker Review of Systems Review of Systems: Mild distress and fatigue no headache, no visual changes no speech or swallowing issues no chest pain, pressure or palpitations no shortness of breath, cough or wheezes no abdominal pain, nausea or vomiting, diarrhea or constipation no dysuria, hematuria or frequency no focal joint pain or swelling no back pain, CVA tenderness or radicular pain no bruising, bleeding or rashes no focal signs of weakness or numbness or altered sensation no complaints of anxiety or depression.. Physical Exam Physical Exam: The patient appeared well nourished and normally developed. Vital signs as documented. Head exam is normocephalic atraumatic Neck is without JVD, thyromegaly, or carotid bruits. Lungs are clear to auscultation, no focal loss of breath sounds Cardiac exam, Rhythm is regular.. No murmurs, rubs or gallops. Abdominal exam reveals normal bowel sounds, soft non tender, no masses Extremities are nonedematous and both pedal pulses are present Neurologic exam is alert and oriented, no focal loss of strength or sensation Skin is without bruises or rashes Psychologically is without concerns for anxiety or depression.. Results & Data Results & Data ([facility]) Vital Signs (Past 12 Hours) Vital Signs Temp Pulse Pulse Resp BP BP Pulse Ox 09/22/22 11:18 99 H 18 123/63 99 09/22/22 11:04 100.2 F H 99 H 18 126/63 99 O2 Del Method O2 Flow Rate 09/22/22 11:18 09/22/22 11:04 Room Air 2 PG Care Time/CCT Total # of Minutes Spent Total Time Spent with Patient: Total time spent is greater than 50% in coordination of care (as documented) at patient's floor/unit and/or counseling patient: Coding Level of Care Code 79860 Initial Inpt Care Lvl 3 Diagnoses Consolidation of right lower lobe of lung J18.1 Coronary artery disease I25.10 Associated angina: without angina Coronary Disease-Associated Artery/Lesion type: [place] artery [place] vs. transplanted heart: [place] heart Chronic diastolic heart failure I50.32 History of pulmonary embolism Z86.711 Paroxysmal atrial fibrillation I48.0 CKD (chronic kidney disease), stage III N18.3 COPD (chronic obstructive pulmonary disease) J44.9 COPD type: unspecified COPD (1) Coronary artery disease Associated angina: without angina Coronary Disease-Associated Artery/Lesion type: [place] artery [place] vs. transplanted heart: [place] heart Qualified Code(s): I25.10 - Atherosclerotic heart disease of [place] coronary artery without angina pectoris (2) COPD (chronic obstructive pulmonary disease) COPD type: unspecified COPD Qualified Code(s): J44.9 - Chronic obstructive pulmonary disease, unspecified
[2022-09-22 13:47] LABS: Influenza A virus by PCR Negative (Neg); Influenza B virus by PCR Negative (Neg); RSV by PCR Negative (Neg); SARS CoV2 RNA(COVID-19) Ceph NEGATIVE (Negative)
[2022-09-22] MEDS ORDERED: ONDANSETRON INJ 2 MG/ML 2 ML VIAL IV PRN (14:25)
[2022-09-22] MEDS ORDERED: VANCOMYCIN CONSULT ACTIVE PRN (14:25)
[2022-09-22] MEDS ORDERED: ALBUT/IPRATROP 3MG/0.5MG NEB 3 ML VIAL NEB PRN (14:25)
[2022-09-22] MEDS ORDERED: ALUMINUM/MAGNESIUM SUSP 30 ML UDC PO PRN (14:25)
[2022-09-22] MEDS ORDERED: predniSONE 10 MG TABLET PO SCH (15:45)
[2022-09-22] MEDS: hydrALAZINE TAB 50 MG TAB PO SCH ×2 (16:00→20:53)
[2022-09-22] MEDS: APIXABAN 5 MG TABLET PO SCH (20:54)
[2022-09-22] MEDS: carvediloL 25 MG TAB PO SCH (20:54)
[2022-09-22] MEDS: SIMVASTATIN 40 MG TAB PO SCH (20:54)
[2022-09-23] MEDS ORDERED: CEFEPIME 2,000 MG in SYRINGE 0 ML IV SCH (01:00)
[2022-09-23 06:09] LABS: Hematocrit (blood only) 28.3 % (34.1-44.9); Hemoglobin 9.1 g/dl (12.0-16.0); Mean Corpuscular Hemoglobin 29.2 pg (25.0-34.0); Mean Corpuscular Hgb Conc 32.2 g/dL (32.0-36.0); Mean Corpuscular Volume 90.7 fL (80.0-100.0); Mean Platelet Volume 9.5 fL (9.4-12.3); Platelet Count 236 K/uL (130-400); RDW Coefficient of Variation 14.1 % (11.5-14.5); RDW Standard Deviation 46.9 fL (36.4-46.3); Red Blood Count 3.12 M/uL (3.93-5.22); White Blood Count 13.79 K/ul (4.8-10.8)
[2022-09-23 06:24] LABS: BUN Creatinine Ratio 35.3 (10-20); Calcium 8.8 mg/dl (8.5-10.1); Est GFR (African American) 30.9 ml/min; Est GFR (Non-African American) 26.6 ml/min; Potassium 4.5 mmol/L (3.5-5.1)
--- NOTE | 2022-09-23 09:05 | Pulmonary Consultation ---
Date of Consultation September 23, 2022 Assessment & Plan (1) RLL pneumonia: Aspiration pneumonia type: due to gastric secretions Pneumonia type: aspiration pneumonia Qualified Code(s): J69.0 - Pneumonitis due to inhalation of food and vomit (2) Abnormal CT scan of lung: (3) COPD (chronic obstructive pulmonary disease): COPD type: unspecified COPD Qualified Code(s): J44.9 - Chronic obstructive pulmonary disease, unspecified Plan Impression: 82-year-old female with history of squamous cell carcinoma presenting now with what appears to be recurrent or persistent pneumonia. She has fluid-filled bronchi more prominently on the right and is unable to expectorate phlegm. Bronchoscopy is indicated to help clear secretions and obtain lower respiratory cultures. She has been initiated on cefepime. She is not interested in invasive procedures but after extensive discussion, she is willing to consider bronchoscopy. Unfortunately she is fully anticoagulated at this time. Recommendations: 1. Recommend holding the patient's apixaban and will try and consider bronchoscopy in the next 24 hours. 2. We will continue aggressive pulmonary toilet including flutter valve, hypertonic saline, and bronchodilators. 3. Based on her x-ray appearance, I do not think we need to repeat her CT scan at this time. 4. Agree with antibiotics for now. Cefepime would be more than adequate. Nontuberculous mycobacterial infections would also be in the differential and again obtaining lower respiratory specimens will be crucial in guiding long-term therapy. 5. Continue supplemental oxygen. The patient's not bronchospastic and I do not think she requires steroids at this time. Continue her current inhalers. The above recommendations and plan were discussed with the patient. Questions were answered to the best my ability. She expressed understanding and is in agreement with plan as outlined History of Present Illness Attending Physician: Scar Diallo History of Present Illness Asked by hospitalist to assist in evaluation management this patient with an abnormal chest x-ray and nonproductive cough. History is obtained from discussion with the patient as well as review the electronic medical record. This 82-year-old female is followed by me in the outpatient pulmonary clinic. I last saw her about 10 months ago. She has a history of squamous cell carcinoma of the lung status postresection in 2019. At that point time she was unclear that she would want any additional interventions performed. She agreed to a follow-up CT scan in a year. She does have COPD and has been on Breo and Spiriva. She was using oxygen at night at that time. Since I saw her last, she was admitted to the hospital in April where she was treated for hyperkalemia vertigo right lower lobe pneumonia and a COPD exacerbation. Swallow evaluation at that point in time was unrevealing. She was placed on steroids and completed 7 days of antibiotics. She was readmitted to the hospital 09/17/2022 with hypoxemia and right lower lobe pneumonia. She again received prednisone Rocephin and azithromycin and was discharged on Augmentin and azithromycin as well as a prednisone taper. She presented back to the emergency room yesterday with falls at home and was found to have an elevated white blood cell count as well as fevers. She has a cough but is unable to expectorate phlegm. When I evaluated her this morning she is sitting up at bedside eating breakfast. She is not particularly enthusiastic about invasive procedures but would be willing to undergo them if felt to be necessary. Allergies Allergy/AdvReac Type Severity Reaction Status Date / Time chlorhexidine Allergy Mild HIVES,RED Verified 09/17/22 12:28 RASH Home Medications Medication Instructions Recorded Confirmed Type ferrous sulfate 325 mg (65 mg 325 mg PO QAM 12/23/18 09/17/22 History iron) tablet cyanocobalamin (vitamin B-12) 1,000 mcg PO QAM 05/02/19 09/17/22 History 1,000 mcg tablet (Vitamin B-12) Oxygen Home #1 ea 05/16/19 09/02/22 Rx docusate sodium 100 mg capsule 100 mg PO DAILY PRN Constipation 06/05/19 09/17/22 History albuterol sulfate 90 mcg/actuation 1 puffs inhalation Q6H PRN 07/31/19 09/17/22 History aerosol inhaler (Ventolin HFA) Shortness Of Breath nystatin 100,000 unit/gram topical 1 applic topical BID PRN . #15 10/22/20 09/17/22 Rx cream grams fluticasone furoate 100 1 inh inhalation DAILY 90 days #3 11/16/21 09/17/22 Rx mcg-vilanterol 25 mcg/dose Inhalers inhalation powder (Breo Ellipta) ergocalciferol (vitamin D2) 1,250 50,000 unit PO MONTHLY #3 caps 12/27/2109/17 Rx mcg (50,000 unit) capsule allopurinol 100 mg tablet 100 mg PO DAILY #30 tabs 05/10/22 09/17/22 Rx apixaban 2.5 mg tablet 2.5 mg PO BID #180 tabs 05/11/22 09/17/22 Rx tiotropium bromide 2.5 1 inh inhalation BID 05/16/22 09/17/22 History mcg/actuation mist for inhalation (Spiriva Respimat) aspirin 81 mg tablet,delayed 81 mg PO QAM #30 tabs 05/24/22 09/17/22 Rx release simvastatin 40 mg tablet 40 mg PO HS #90 tabs 06/07/22 09/17/22 Rx hydralazine 50 mg tablet 75 mg PO TID 30 days #135 tabs 07/06/22 09/17/22 Rx amoxicillin 875 mg-potassium 1 tab PO BID #11 tabs 09/20/22 09/21/22 Rx clavulanate 125 mg tablet azithromycin 250 mg tablet 250 mg PO QAM 3 days #3 tabs 09/20/22 Rx carvedilol 25 mg tablet 25 mg PO BID #180 tabs 09/20/22 09/21/22 Rx furosemide 20 mg tablet (Lasix) 20 mg PO QAM #30 tabs 09/20/22 Rx ipratropium 0.5 mg-albuterol 3 mg 3 ml NEB QID PRN shortness of 09/20/22 Rx (2.5 mg base)/3 mL nebulization breath or wheezing #180 mL soln prednisone 10 mg tablet 10 mg PO DAILY #18 tabs 09/20/22 09/21/22 Rx Patient History Medical History (Updated 09/23/22 @ 09:01 by Basil Kingsley MD) Acute on chronic diastolic (congestive) heart failure Acute respiratory failure with hypoxia Acute severe vertigo Acute upper abdominal pain Anemia Cardiomyopathy Cellulitis CKD (chronic kidney disease) BASELINE CREATININE 1.6-1.8 PER CHART REVIEW COPD (chronic obstructive pulmonary disease) COPD exacerbation Coronary artery disease NON-OBSRTUCTIVE Cough Dyspnea Edema due to hypoalbuminemia Elevated serum creatinine Fall Hand pain History of abdominal aortic aneurysm (AAA) S/P REPAIR 2015 History of [place] (myocardial infarction) 2016= MEDICALLY MANAGED Hyperglycemia Hyperlipidemia Hypertension Hypoxia Knee pain, left Left wrist pain Lung nodule Mitral regurgitation Multinodular goiter Nasal bleeding Nocturnal hypoxemia 2L AT HS Osteoarthritis Pre-syncope Pulmonary embolism RECURRENT (~2012) ON COUMADIN 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 Right lower lobe pneumonia Sacroiliitis Secondary renal hyperparathyroidism Shingles Takotsubo syndrome 2016 URI (upper respiratory infection) Vitamin D deficiency Surgical History AAA (abdominal aortic aneurysm) S/P REPAIR 2016 History of bladder surgery TURBT History of bronchoscopy EBUS, Navigational bronch with biopsy: 02/21/19: Grade 2 view, MAC 3, ETT 8.5 History of lobectomy of lung History of tooth extraction 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) Family History Sister Skin cancer Malignant neoplasm of bone Mother Cancer Daughter Diabetes Hypertension Brother Skin cancer Other Dyslipidemia Denies family history of Colon cancer Ovarian cancer Prostate cancer Kidney disease Myocardial infarction Breast cancer Lung cancer Stroke Social History Smoking Status: Former smoker Cigarettes Per Day: 30; Second Hand Exposure: No; Hx Alcohol Use: No Hx Substance Use: No Preferred Language: Georgian Communication Ability: Effective Visual Impairment: Limited Hearing Ability: Normal Electronics Assembler Required: No Beliefs That Will Affect Care: None marital status: / Current Living Situation: Alone current occupational status: retired How many Children do You have: 1 Other Information That Helps Us Care for You: No Feels Safe at Home: Yes Safety Concerns: Feels Safe At This Time Childhood Exposure to Second-Hand Smoke: Yes caffeine: Yes Dental Care, Regularly: No Physical Activity Frequency: Does not Exercise Seatbelt Use: always Sunscreen Use: No Assistive Devices: Cane, Denture - Upper, Glasses and Walker Review of Systems Review of Systems: Please refer to admission H&P. No additions or deletions Physical Exam Constitutional: WD/WN, vitals as above Neck: trachea midline, no thyromegaly Respiratory: + cough; no respiratory distress, no labored breathing and not tachypneic Auscultation: + rhonchi; no wheezes Cardiovascular: RRR, no murmur, no edema Gastrointestinal (Abdomen): normal bowel sounds, soft, nontender, no hepatosplenomegaly Musculoskeletal: Extremities: extremities normal to inspection Skin: no rashes, warm and dry Neurologic: Nonfocal exam Lymphatic: no cervical lymphadenopathy Results & Data Results & Data ([facility]) Vital Signs (Past 12 Hours) Vital Signs Temp Pulse Pulse Resp BP Pulse Ox O2 Del Method 09/23/22 08:10 37.1 C 68 19 150/69 H 96 Nasal Cannula 09/23/22 03:00 36.8 C 61 18 111/61 95 Nasal Cannula 09/23/22 00:00 63 09/22/22 23:23 36.5 C 66 20 115/64 95 Nasal Cannula 09/22/22 23:28 Nasal Cannula O2 Flow Rate 09/23/22 08:10 2.0 09/23/22 03:00 2 09/23/22 00:00 09/22/22 23:23 2.0 09/22/22 23:28 2 Diagnostic Findings Images were independently reviewed. CT scan from 09/17/2022 demonstrated patchy multifocal airspace opacities in the left lung. The left lower lobe bronchus is completely occluded. Bronchiectasis in the bilateral lower lobes is noted. Chest x-ray from 09/22/2022 was reviewed and is not much changed from x-ray performed 09/17/2022 but different from 05/21/2022. There appears to be right lower lobe collapse with mediastinal shift. Critical Care Results & Data Vital Signs (Past 12 Hours) Vital Signs Temp Pulse Pulse Resp BP Pulse Ox O2 Del Method 09/23/22 08:10 37.1 C 68 19 150/69 H 96 Nasal Cannula 09/23/22 03:00 36.8 C 61 18 111/61 95 Nasal Cannula 09/23/22 00:00 63 09/22/22 23:23 36.5 C 66 20 115/64 95 Nasal Cannula 09/22/22 23:28 Nasal Cannula O2 Flow Rate 09/23/22 08:10 2.0 09/23/22 03:00 2 09/23/22 00:00 09/22/22 23:23 2.0 09/22/22 23:28 2 Lab & Micro Results (Past 24 Hours) RBC 3.12 M/uL (3.93-5.22) L 09/23/22 WBC 13.79 K/ul (4.8-10.8) H 09/23/22 Hgb 9.1 g/dl (12.0-16.0) L 09/23/22 Hct 28.3 % (34.1-44.9) L 09/23/22 MCV 90.7 fL (80.0-100.0) 09/23/22 MCH 29.2 pg (25.0-34.0) 09/23/22 MCHC 32.2 g/dL (32.0-36.0) 09/23/22 RDW Standard Deviation 46.9 fL (36.4-46.3) H 09/23/22 RDW Coefficient of Variation 14.1 % (11.5-14.5) 09/23/22 Plt Count 236 K/uL (130-400) 09/23/22 MPV 9.5 fL (9.4-12.3) 09/23/22 Neutrophils (%) (Auto) 87.4 % 09/22/22 Lymphocytes (%) (Auto) 4.4 % 09/22/22 Monocytes # (Auto) 1.36 K/uL (0.24-0.82) H 09/22/22 Eosinophils # (Auto) 0.07 K/uL (0-0.50) 09/22/22 Immature Granulocyte % (Auto) 1.2 % 09/22/22 Neutrophils # (Auto) 18.28 K/uL (1.4-6.5) H 09/22/22 Lymphocytes # (Auto) 0.91 K/uL (1.2-3.4) L 09/22/22 Monocytes # (Auto) 1.36 K/uL (0.24-0.82) H 09/22/22 Eosinophils # (Auto) 0.07 K/uL (0-0.50) 09/22/22 Basophils # (Auto) 0.04 K/uL (0-0.2) 09/22/22 Immature Granulocyte # (Auto) 0.25 K/uL (0.00-0.02) H 09/22 Na 134 mmol/L (136-145) L 09/23/22 K 4.5 mmol/L (3.5-5.1) 09/23/22 Cl 101 mmol/L (98-107) 09/23/22 CO2 27 mmol/L (21-32) 09/23/22 Anion Gap 6 (3-11) 09/23/22 BUN 61 mg/dl (6-23) H 09/23/22 Creatinine 1.73 mg/dl (0.6-1.2) H 09/23/22 Estimated GFR ( Amer) 30.9 ml/min 09/23/22 Estimated GFR (Non-Af Amer) 26.6 ml/min 09/23/22 BUN/Creatinine Ratio 35.3 (10-20) H 09/23/22 Glu 114 mg/dl (70-99(Fasting)) H 09/23/22 Ca 8.8 mg/dl (8.5-10.1) 09/23/22 Mg 2.0 mg/dl (1.7-2.4) 09/22/22 12:12 Calcium Level 8.8 mg/dl (8.5-10.1) 09/23/22 05:36 Prothromb Time International Ratio 1.0 (0.9-1.1) 09/22/22 12:1 2 Venous Blood pH 7.41 (7.36-7.41) 09/22/22 12:12 Venous Blood Partial Pressure CO2 46 mmHg (38-50) 09/22/22 12:1 2 Venous Blood Partial Pressure O2 40 mmHg 09/22/22 12:12 Venous Blood HCO3 29 mmol/L 09/22/22 12:12 Venous Blood Base Excess 3.8 mEq/L 09/22/22 12:12 Venous Blood Oxygen Saturation 71.4 % 09/22/22 12:12 Diagnostic Findings (Past 24 Hours) Chest X-Ray 09/22/22 11:50 SINGLE VIEW CHEST CLINICAL HISTORY: Dyspnea. Generalized weakness. Pneumonia FINDINGS: 2 AP, portable, upright chest radiographs are compared to chest x-ray and chest CT dated 09/17/2022. The heart is mildly enlarged noting atherosclerotic calcification of the thoracic aorta. The pulmonary vasculature is noncontrast. There is volume loss in the right lung with mild rightward shift of the mediastinum. Emphysema and chronic interstitial thickening is similar to previous. Airspace consolidation is again seen at the right lung base with a right pleural effusion. Milder patchy consolidation is seen in the right upper lobe and at the left lung base. No pneumothorax is seen. The skeletal structures are osteopenic. There are healed right-sided rib fractures. IMPRESSION: 1. Multifocal airspace consolidation and small right pleural effusion as above. This is similar to 09/17/2022 examination, and the appearance is typical for pneumonia/aspiration pneumonitis. Clinical correlation will be required and radiographic follow-up to resolution is recommended. 2. Cardiomegaly and emphysema. ACT 112: Negative or not required by law. Electronically signed by: Pradeep Avina M.D. 09/22/2022 12:52 PM I & O Totals 24 Hours 09/22/22 09/23/22 09/24/22 06:59 06:59 06:59 Intake Total 800 / 800 Output Total Balance 799 / 799 Cumulative 09/22/22 11:04 thru 09/23/22 06:40 Intake Total 800 Output Total 1 Balance 799 RT Ventilator Mngmt (Last Documented) Ventilator Ordered Settings Respiratory Rate 19 09/23/22 08:10 Ventilator - PT Measurements Respiratory Rate 19 PG Care Time/CCT Total # of Minutes Spent Total Time Spent with Patient: Total time spent is greater than 50% in coordination of care (as documented) at patient's floor/unit and/or counseling patient: Coding Level of Care Code 75857 Initial Inpt Care Lvl 3 Diagnoses RLL pneumonia J69.0 Aspiration pneumonia type: due to gastric secretions Pneumonia type: aspiration pneumonia Abnormal CT scan of lung R91.8 COPD (chronic obstructive pulmonary disease) J44.9 COPD type: unspecified COPD
[2022-09-23] MEDS: CYANOCOBALAMIN (B-12) 500 MCG TABLET PO SCH (09:08)
[2022-09-23] MEDS: hydrALAZINE TAB 50 MG TAB PO SCH ×3 (09:08→20:33)
[2022-09-23] MEDS: allopurinoL 100 MG TAB PO SCH (09:08)
[2022-09-23] MEDS: ASPIRIN 81 MG ECTAB PO SCH (09:08)
[2022-09-23] MEDS: FLUTICASONE/VILANTEROL 100/25MCG 14 PUFFS/INHALER INH SCH (09:08)
[2022-09-23] MEDS: carvediloL 25 MG TAB PO SCH ×2 (09:08→21:04)
[2022-09-23] MEDS: FUROSEMIDE 20 MG TAB PO SCH (09:08)
[2022-09-23] MEDS: FERROUS SULFATE 325 MG TAB PO SCH (09:08)
[2022-09-23] MEDS: UMECLIDINIUM BROMIDE 62.5MCG/BLISTER 7 PUFFS/INHALER INH SCH (09:09)
[2022-09-23] MEDS: APIXABAN 5 MG TABLET PO SCH (09:09)
--- NOTE | 2022-09-23 09:59 | Electrocardiogram Report ---
Test Reason : Blood Pressure : / mmHG Vent. Rate : 096 BPM Atrial Rate : 096 BPM P-R Int : 152 ms QRS Dur : 076 ms QT Int : 328 ms P-R-T Axes : 024 025 057 degrees QTc Int : 414 ms Poor data quality, interpretation may be adversely affected Normal sinus rhythm Normal ECG When compared with ECG of 17-SEP-2022 12:25, No significant change was found Confirmed by Abebe Dick ([id number]) on 09/23/2022 9:58:37 AM Referred By: REFERRED SELF Confirmed By:Abebe Dick
[2022-09-23] MEDS: CEFEPIME 1,000 MG in SYRINGE 0 ML IV SCH (13:17)
[2022-09-23] MEDS: SIMVASTATIN 40 MG TAB PO SCH (21:04)
--- NOTE | 2022-09-23 21:45 | Hospitalist Progress Note ---
Date of Service September 23, 2022 Assessment & Plan (1) Consolidation of right lower lobe of lung: Plan: Patient recurs with falls at home and weakness. Has persistent right lower lung consolidation during her last hospital stay there was concern for infection versus possible recurrence of neoplasm as the patient previous had a right lower lobectomy. Patient was discharged on Augmentin and azithromycin. Because of recurrence fever leukocytosis the patient will be switched to gram-negative coverage of cefepime and MRSA coverage pending a MRSA nasal swab. Consultation of pulmonary medicine will be undertaken to see if further diagnostic maneuvers should be undertaken to evaluate this right lower lobe Plan for 09/24 AM for patient to go for a bronchoscopy. (2) Coronary artery disease: Plan: continues on aspirin, carvedilol. lasix 20, hydralazine 50 TID (3) Chronic diastolic heart failure: Plan: controlled with carvedilol and lasix (4) History of pulmonary embolism: Plan: on chronic apixaban therapy (5) Paroxysmal atrial fibrillation: Plan: last hospital stay was in sinus rhythm and on rate control of coreg and chornic apixiban (6) CKD (chronic kidney disease), stage III: Plan: stable, on hydralazine for bp control (7) COPD (chronic obstructive pulmonary disease): Plan: will have on prednisone and spiriva, fluticasone/vilanterol offer prn duonebs Admission and Anticipated Discharge Date Admission Date: September 22, 2022 Subjective Patient reports no significant improvement today. Feels tired. Review of Systems Review of Systems: All systems reviewed & are unremarkable except as noted in HPI & below Physical Exam Physical Exam: The patient appeared well nourished and normally developed. Vital signs as documented. Head exam is normocephalic atraumatic Neck is without JVD, thyromegaly, or carotid bruits. Lungs are clear to auscultation, no focal loss of breath sounds Cardiac exam, Rhythm is regular.. No murmurs, rubs or gallops. Abdominal exam reveals normal bowel sounds, soft non tender, no masses Extremities are nonedematous and both pedal pulses are present Neurologic exam is alert and oriented, no focal loss of strength or sensation Skin is without bruises or rashes Psychologically is without concerns for anxiety or depression Results & Data Results & Data ([facility]) Vital Signs (Past 12 Hours) Vital Signs Temp Pulse Resp BP Pulse Ox O2 Del Method O2 Flow Rate 09/23/22 19:00 37.1 C 88 20 146/65 H 92 Nasal Cannula 2 09/23/22 16:00 Nasal Cannula 2 09/23/22 16:36 37.5 C 85 18 150/70 H 94 Nasal Cannula 2.0 09/23/22 12:35 36.9 C 73 19 160/75 H 95 Nasal Cannula 2.0 PG Care Time/CCT Total # of Minutes Spent Total Time Spent with Patient: Total time spent is greater than 50% in coordination of care (as documented) at patient's floor/unit and/or counseling patient: Coding Level of Care Code 63403 Subseq Hosp Care Lvl 2 Diagnoses Consolidation of right lower lobe of lung J18.1 Coronary artery disease I25.10 Associated angina: without angina Coronary Disease-Associated Artery/Lesion type: [place] artery [place] vs. transplanted heart: [place] heart Chronic diastolic heart failure I50.32 History of pulmonary embolism Z86.711 Paroxysmal atrial fibrillation I48.0 CKD (chronic kidney disease), stage III N18.3 COPD (chronic obstructive pulmonary disease) J44.9 COPD type: unspecified COPD Time Spent (min) 25 (1) Coronary artery disease Associated angina: without angina Coronary Disease-Associated Artery/Lesion type: [place] artery [place] vs. transplanted heart: [place] heart Qualified C ode(s): I25.10 - Atherosclerotic heart disease of [place] coronary artery without angina pectoris (2) COPD (chronic obstructive pulmonary disease) COPD type: unspecified COPD Qualified Code(s): J44.9 - Chronic obstructive pulmonary disease, unspecified
[2022-09-24] MEDS: CEFEPIME 1,000 MG in SYRINGE 0 ML IV SCH ×2 (01:15→15:20)
[2022-09-24] MEDS: ACETAMINOPHEN 325 MG TAB PO PRN ×2 (02:55→20:28)
[2022-09-24 04:56] LABS: Hematocrit (blood only) 27.1 % (34.1-44.9); Hemoglobin 8.8 g/dl (12.0-16.0); Mean Corpuscular Hgb Conc 32.5 g/dL (32.0-36.0); Mean Corpuscular Volume 89.4 fL (80.0-100.0); Mean Platelet Volume 9.7 fL (9.4-12.3); Platelet Count 249 K/uL (130-400); RDW Coefficient of Variation 14.1 % (11.5-14.5); RDW Standard Deviation 46.3 fL (36.4-46.3); Red Blood Count 3.03 M/uL (3.93-5.22)
[2022-09-24 05:21] LABS: BUN Creatinine Ratio 29.7 (10-20); Calcium 8.7 mg/dl (8.5-10.1); Creatinine Clr Calc Pharmacy 21.9 ml/min; Est GFR (Non-African American) 25.1 ml/min; Potassium 4.2 mmol/L (3.5-5.1)
[2022-09-24] MEDS ORDERED: fentaNYL citrate 100 MCG/2 ML VIAL ONE (07:51)
[2022-09-24] MEDS ORDERED: MIDAZOLAM HCL 1 MG/ML 2ML VIAL ONE (07:57)
--- NOTE | 2022-09-24 08:03 | Pulmonology Progress Note ---
Date of Service September 24, 2022 Assessment & Plan (1) RLL pneumonia: Aspiration pneumonia type: due to gastric secretions Pneumonia type: aspiration pneumonia Qualified Code(s): J69.0 - Pneumonitis due to inhalation of food and vomit (2) Abnormal CT scan of lung: (3) COPD (chronic obstructive pulmonary disease): COPD type: unspecified COPD Qualified Code(s): J44.9 - Chronic obstructive pulmonary disease, unspecified Plan Impression: 82-year-old female with history of squamous cell carcinoma presenting now with what appears to be recurrent or persistent pneumonia. She h as fluid-filled bronchi more prominently on the right and is unable to expectorate phlegm. Anticoagulation has been held. She is failed conservative interventions and has been on 3 courses of antibiotics with 2 hospitalizations. Bronchoscopy is warranted. Risks and benefits were discussed with the patient. She is agreeable to proceed. Recommendations: 1. Mucous plugging: N.p.o. for bronchoscopy today. Will assess airways and biopsy if there are abnormalities identified otherwise plan on clearing mucus and collecting lower respiratory samples for microbiologic and cytologic analysis. 2. Continue aggressive pulmonary toilet post procedure with flutter valve hypertonic saline and inhaled bronchodilators 3. Agree with antibiotics for now. Day #2 cefepime. Antibiotics will be adj usted based on results of bronchoscopy. 5. Continue supplemental oxygen. The patient's not bronchospastic and I do not think she requires steroids at this time. Continue her current inhalers. The above recommendations and plan were discussed with the patient. I also discussed the case with the patient's daughter by phone yesterday questions were answered to the best my ability. She expressed understanding and is in agreement with plan as outlined Admission and Anticipated Discharge Date Admission Date: September 22, 2022 Subjective Patient seen and examined. EMR reviewed. The patient continues to have a cough. She has congestion rattling in her chest but is unable to expectorate phlegm. She is been n.p.o. and anticoagulation has been held for bronchoscopy today. She was consented regarding the risks and benefits of the procedure and agreed to proceed. No other significant changes in her medical history since last seen Review of Systems Review of Systems: All systems reviewed & are unremarkable except as noted in Subjective Physical Exam Constitutional: WD/WN, vitals as above Neck: trachea midline, no thyromegaly Respiratory: + cough; no respiratory distress, no labored breathing and not tachypneic Auscultation: + rhonchi; no wheezes Cardiovascular: RRR, no murmur, no edema Gastrointestinal (Abdomen): normal bowel sounds, soft, nontender, no h epatosplenomegaly Musculoskeletal: Extremities: extremities normal to inspection Skin: no rashes, warm and dry Lymphatic: no cervical lymphadenopathy Results & Data Results & Data ([facility]) Vital Signs (Past 12 Hours) Vital Signs Temp Pulse Pulse Resp BP BP Pulse Ox 09/24/22 03:56 37.2 C 09/24/22 02:53 38.9 C H 86 15 118/62 92 09/24/22 00:00 09/24/22 00:00 85 09/23/22 23:00 36.9 C 86 16 130/57 L 93 09/23/22 22:33 Pulse Ox O2 Del Method O2 Del Method O2 Flow Rate O2 Flow Rate 09/24/22 03:56 09/24/22 02:53 Nasal Cannula 2 09/24/22 00:00 93 Nasal Cannula 2 09/24/22 00:00 09/23/22 23:00 Room Air 2 09/23/22 22:33 Nasal Cannula 2 Laboratory Results 09/24/22 04:17 09/24/22 04:17 Diagnostic Findings No new imaging PG Care Time/CCT Total # of Minutes Spent Total Time Spent with Patient: Total time spent is greater than 50% in coordination of care (as documented) at patient's floor/unit and/or counseling patient: Coding Level of Care Code 74067 Subseq Hosp Care Lvl 2 Diagnoses RLL pneumonia J69.0 Aspiration pneumonia type: due to gastric secretions Pneumonia type: aspiration pneumonia Abnormal CT scan of lung R91.8 COPD (chronic obstructive pulmonary disease) J44.9 COPD type: unspecified COPD
--- NOTE | 2022-09-24 08:04 | Pre Anesthesia Assessment ---
Date of Service September 24, 2022 Pre Sedation Assessment Vital Signs Temp Pulse Pulse Resp BP BP Pulse Ox 09/24/22 03:56 37.2 C 09/24/22 02:53 38.9 C H 86 15 118/62 92 09/24/22 00:00 09/24/22 00:00 85 09/23/22 23:00 36.9 C 86 16 130/57 L 93 09/23/22 22:33 09/23/22 19:00 37.1 C 88 20 146/65 H 92 09/23/22 16:00 09/23/22 16:36 37.5 C 85 18 150/70 H 94 09/23/22 12:35 36.9 C 73 19 160/75 H 95 09/23/22 08:10 37.1 C 68 19 150/69 H 96 Pulse Ox O2 Del Method O2 Del Method O2 Flow Rate O2 Flow Rate 09/24/22 03:56 09/24/22 02:53 Nasal Cannula 2 09/24/22 00:00 93 Nasal Cannula 2 09/24/22 00:00 09/23/22 23:00 Room Air 2 09/23/22 22:33 Nasal Cannula 2 09/23/22 19:00 Nasal Cannula 2 09/23/22 16:00 Nasal Cannula 2 09/23/22 16:36 Nasal Cannula 2.0 09/23/22 12:35 Nasal Cannula 2.0 09/23/22 08:10 Nasal Cannula 2.0 Cardiovascular RRR, no murmur, no edema Respiratory Additional Comments: Coarse rhonchi bilaterally Pre-Sedation Airway Assessment Smoking Status: Former smoker Short, Thick Neck: No Thyromental Distance: > or= 3.5 Finger Breadths Oral Cavity: + WNL Mallampati Class: I ASA: ASA2 NPO Status Date of Last Intake of Fluids: 09/23/22 Time of Last Intake of Fluids: 23:00 Notes The planned sedation has been discussed with the patient. Informed Consent was obtained. I have identified the patient, determined the appropriateness of sedation and have assessed the patient immediately prior to the procedure. All medicine(s) and interventions are by my order.
[2022-09-24] MEDS: MIDAZOLAM HCL 1 MG/ML 2ML VIAL ONE ×2 (08:13→08:42)
[2022-09-24] MEDS: fentaNYL citrate 100 MCG/2 ML VIAL ONE ×2 (08:14→08:51)
--- NOTE | 2022-09-24 08:32 | Post Anesthesia Assessment ---
Date of Service September 24, 2022 Post Sedation Assessment Vital Signs Temp Pulse Pulse Resp BP BP BP 09/24/22 08:29 73 14 127/53 L 09/24/22 08:27 69 26 H 118/46 L 09/24/22 08:25 72 24 129/66 09/24/22 08:20 09/24/22 03:56 37.2 C 09/24/22 02:53 38.9 C H 86 15 118/62 09/24/22 00:00 09/24/22 00:00 85 09/23/22 23:00 36.9 C 86 16 130/57 L 09/23/22 22:33 09/23/22 19:00 37.1 C 88 20 146/65 H 09/23/22 16:00 09/23/22 16:36 37.5 C 85 18 150/70 H 09/23/22 12:35 36.9 C 73 19 160/75 H Pulse Ox Pulse Ox O2 Del Method O2 Del Method O2 Flow Rate O2 Flow Rate 09/24/22 08:29 93 Oxymask 2 09/24/22 08:27 92 Oxymask 2 09/24/22 08:25 92 Oxymask 2 09/24/22 08:20 95 Oxymask 2 09/24/22 03:56 09/24/22 02:53 92 Nasal Cannula 2 09/24/22 00:00 93 Nasal Cannula 2 09/24/22 00:00 09/23/22 23:00 93 Room Air 2 09/23/22 22:33 Nasal Cannula 2 09/23/22 19:00 92 Nasal Cannula 2 09/23/22 16:00 Nasal Cannula 2 09/23/22 16:36 94 Nasal Cannula 2.0 09/23/22 12:35 95 Nasal Cannula 2.0 Discharge Sedation Level of Care: Fast Track Phase II Post Sedation Plan On clinical assessment, the patient appears to have tolerated the sedation without complications. Patient is recovering as anticipated. Patient will continue to be monitored by nursing and may be discharged when sedation discharge criteria are met per below protocol. Upon Completions of procedure up to 15 minutes continue every 5 minute vital signs and the P.A.R. score; then discharge to a Phase I or Fast Track to Phase II per the following guidelines: * Discharge Patient to appropriate Phase II area if PAR is 8 or greater or return to pre- procedure baseline. The post - procedure orders will be as directed. * If PAR score is less than 8 or not return to pre-procedure baseline then patient will follow Phase I monitoring till PAR is reached for Phase II. The Phase I may be done in procedure room or may call to secure a Phase I area. * If naloxone or flumazenil are used for reversal, hold in Phase I for continued monitoring from when last reversal dose was given for a minimum of 60 minutes or longer pending the nurse and/or physician discretion of patient condition before discharge to Phase II. Please call the Sedation Physician to re-evaluate and complete post-note for discharge to Phase II area. Do NOT discharge from procedure sedation or Phase 1 until post- sedation evaluation note is complete by procedure /sedation MD Sedation Discharge Instructions to be given to the patient at discharge to home.
--- NOTE | 2022-09-24 08:40 | Procedure Note ---
Procedure Note Date of Service September 24, 2022 Note Procedure: Fiberoptic bronchoscopy Therapeutic aspiration of secretions, initial Conscious sedation Provider: Basil Kingsley MD Consent: Signed by patient and timeout verified prior to procedure. Sedation start: 810 Sedation end: 834 Conscious sedation: 25 mg fentanyl, 2 mg Versed, topical lidocaine per RT protocol Estimated blood loss: Less than 10 mL Procedure: Patient was brought to the ICU. Consent was verified. Appropriate radiographic studies had been reviewed prior to the procedure. Standard monitoring was applied. Oxygen was administered. After topical anesthesia of the airways per respiratory therapy protocol, the fiberoptic scope was advanced through the right nares. Oropharynx was unremarkable. Vocal cords were visualized and were normal in function and appearance. Topical anesthesia of the cords was achieved with instillation of lidocaine through the scope. Scope was then passed through the vocal cords. The trachea was slightly tortuous. Main [place] was sharp. Anesthesia of the lower airways was achieved with instillation of lidocaine through the scope. There were copious secretions noted within the trachea extending down into the bilateral mainstem bronchi, right greater than left. These were cleared with saline lavage. After the airways were cleared, A sequential and systematic examination of the lower airways was conducted. The right-sided airways were plugged with thick white creamy mucus and the mucosa appeared friable. Left- sided airways were patent and the mucosa appeared friable. After the airways were cleared, closer attention was played to the right lower lobe staple site. It appeared to be well-healed however there was a small focus of abnormal mucosa at about the 8 o'clock position. This was quite friable. Cytology was sent. I considered brushing the lesion however the patient was experiencing some bleeding emanating from the nose draining down into the airway and her Eliquis had been on hold for only about 20 hours. I elected to not pursue biopsies and brushings at this point in time. The bronchoscope was then removed from the airways. The patient tolerated the procedure well without obvious complication. Patient was returned to the [facility] room. Impression: 1. Mucous plugging of the trachea extending down into the right mainstem and right lower lobe bronchi. 2. Therapeutic aspiration of secretions with saline lavage. Await micro biologic data. 3. Small abnormal mucosal lesion at about 7:00 above the staple line. Recommend attention at follow-up bronchoscopy once the patient's acute issues have resolved and anticoagulation can be held for 48 hours. Coding CPT Codes Pulmonary/Thoracic - Pulmonary and Thoracic: 33408 Dx bronchoscopy/wash ([id number]) Sedation/Anesthesia - Sedation/Anesthesia: 82567 Mod Sedation by the same physician; Ea [id number] Minutes ([id number]) Sedation/Anesthesia - Sedation/Anesthesia: 86433 Mod Sedation by the same physician;Init15 Min Child Age 5 & Up ([id number]) [facility] [place] Procedure Codes (Charges) Pulmonary/Thoracic Procedure 1: Pulmonary and Thoracic: 98937 Dx bronchoscopy/wash Sedation/Anesthesia Procedure 3: Sedation/Anesthesia: 30077 Mod Sedation by the same physician; Ea [id number] Minutes Total Sedation Time (minutes): 26 Procedure 2: Sedation/Anesthesia: 01276 Mod Sedation by the same physician;Init15 Min Child Age 5 & Up
[2022-09-24] MEDS ORDERED: MIDAZOLAM HCL 1 MG/ML 2ML VIAL IV STA (08:50)
[2022-09-24] MEDS ORDERED: fentaNYL citrate 100 MCG/2 ML VIAL IV STA (08:51)
[2022-09-24] MEDS: carvediloL 25 MG TAB PO SCH ×2 (11:25→20:26)
[2022-09-24] MEDS: FERROUS SULFATE 325 MG TAB PO SCH (11:26)
[2022-09-24] MEDS: CYANOCOBALAMIN (B-12) 500 MCG TABLET PO SCH (11:26)
[2022-09-24] MEDS: hydrALAZINE TAB 50 MG TAB PO SCH ×3 (11:26→20:28)
[2022-09-24] MEDS: FUROSEMIDE 20 MG TAB PO SCH (11:27)
[2022-09-24] MEDS: ASPIRIN 81 MG ECTAB PO SCH (11:27)
[2022-09-24] MEDS: UMECLIDINIUM BROMIDE 62.5MCG/BLISTER 7 PUFFS/INHALER INH SCH (11:27)
[2022-09-24] MEDS: allopurinoL 100 MG TAB PO SCH (11:27)
[2022-09-24] MEDS: FLUTICASONE/VILANTEROL 100/25MCG 14 PUFFS/INHALER INH SCH (11:28)
[2022-09-24] MEDS: guaiFENesin 600 MG TABCR PO SCH ×2 (11:43→20:27)
[2022-09-24] MEDS: SIMVASTATIN 40 MG TAB PO SCH (20:26)
[2022-09-24] MEDS: SODIUM CHLOR 7% 4 ML NEB NEB SCH (21:27)
--- NOTE | 2022-09-24 22:20 | Hospitalist Progress Note ---
Date of Service September 24, 2022 Assessment & Plan (1) Consolidation of right lower lobe of lung: Plan: Patient recurs with falls at home and weakness. Has persistent right lower lung consolidation during her last hospital stay there was concern for infection versus possible recurrence of neoplasm as the patient previous had a right lower lobectomy. Patient was discharged on Augmentin and azithromycin. Because of recurrence fever leukocytosis the patient will be switched to gram-negative coverage of cefepime and MRSA coverage pending a MRSA nasal swab. Consultation of pulmonary medicine: bronchoscopy completed on 09/24 Bronchoscopy impression: 1. Mucous plugging of the trachea extending down into the right mainstem and right lower lobe bronchi. 2. Therapeutic aspiration of secretions with saline lavage. Await microbiologic data. 3. Small abnormal mucosal lesion at about 7:00 above the staple line. Recommend attention at follow-up bronchoscopy once the patient's acute issues have resolved and anticoagulation can be held for 48 hours. will reassess in AM. (2) Coronary artery disease: Plan: continues on aspirin, carvedilol. lasix 20, hydralazine 50 TID (3) Chronic diastolic heart failure: Plan: controlled with carvedilol and lasix (4) History of pulmonary embolism: Plan: on chronic apixaban therapy (held for procedure) (5) Paroxysmal atrial fibrillation: Plan: last hospital stay was in sinus rhythm and on rate control of coreg and chornic apixiban (6) CKD (chronic kidney disease), stage III: Plan: stable, on hydralazine for bp control (7) COPD (chronic obstructive pulmonary disease): Plan: will have on prednisone and spiriva, fluticasone/vilanterol offer prn duonebs Admission and Anticipated Discharge Date Admission Date: September 22, 2022 Subjective Patient reports breathing better after bronchoscopy. Patient states she wants to rest, Review of Systems Review of Systems: All systems reviewed & are unremarkable except as noted in HPI & below Physical Exam Physical Exam: The patient appeared well nourished and normally developed. Vital signs as documented. Head exam is normocephalic atraumatic Neck is without JVD, thyromegaly, or carotid bruits. Lungs are clear to auscultation, no focal loss of breath sounds Cardiac exam, Rhythm is regular.. No murmurs, rubs or gallops. Abdominal exam reveals normal bowel sounds, soft non tender, no masses Extremities are nonedematous and both pedal pulses are present Neurologic exam is alert and oriented, no focal loss of strength or sensation Skin is without bruises or rashes Psychologically is without concerns for anxiety or depression Results & Data Results & Data ([facility]) Vital Signs (Past 12 Hours) Vital Signs Temp Pulse Pulse Resp BP Pulse Ox O2 Del Method 09/24/22 21:30 36.9 C 09/24/22 21:29 70 18 91 Nasal Cannula 09/24/22 19:46 37.6 C H 81 19 139/55 L 92 Nasal Cannula 09/24/22 15:00 71 09/24/22 16:14 36.7 C 76 18 110/67 91 Nasal Cannula 09/24/22 11:47 36.6 C 70 18 116/63 92 Nasal Cannula O2 Flow Rate 09/24/22 21:30 09/24/22 21:29 4 09/24/22 19:46 4 09/24/22 15:00 09/24/22 16:14 2.0 09/24/22 11:47 3.0 PG Care Time/CCT Total # of Minutes Spent Total Time Spent with Patient: Total time spent is greater than 50% in coordination of care (as documented) at patient's floor/unit and/or counseling patient: Coding Level of Care Code 17855 Subseq Hosp Care Lvl 2 Diagnoses Consolidation of right lower lobe of lung J18.1 Coronary artery disease I25.10 Associated angina: without angina Coronary Disease-Associated Artery/Lesion type: [place] artery [place] vs. transplanted heart: [place] heart Chronic diastolic heart failure I50.32 History of pulmonary embolism Z86.711 Paroxysmal atrial fibrillation I48.0 CKD (chronic kidney disease), stage III N18.3 COPD (chronic obstructive pulmonary disease) J44.9 COPD type: unspecified COPD (1) Coronary artery disease Associated angina: without angina Coronary Disease-Associated Artery/Lesion type: [place] artery [place] vs. transplanted heart: [place] heart Qualified Code(s): I25.10 - Atherosclerotic heart disease of [place] coronary artery without angina pectoris (2) COPD (chronic obstructive pulmonary disease) COPD type: unspecified COPD Qualified Code(s): J44.9 - Chronic obstructive pulmonary disease, unspecified
[2022-09-25] MEDS: CEFEPIME 1,000 MG in SYRINGE 0 ML IV SCH ×3 (01:06→21:24)
[2022-09-25 05:18] LABS: Hematocrit (blood only) 27.3 % (34.1-44.9); Hemoglobin 8.6 g/dl (12.0-16.0); Mean Corpuscular Hemoglobin 28.6 pg (25.0-34.0); Mean Corpuscular Hgb Conc 31.5 g/dL (32.0-36.0); Mean Corpuscular Volume 90.7 fL (80.0-100.0); Mean Platelet Volume 9.4 fL (9.4-12.3); Platelet Count 225 K/uL (130-400); RDW Coefficient of Variation 14.3 % (11.5-14.5); RDW Standard Deviation 47.5 fL (36.4-46.3); Red Blood Count 3.01 M/uL (3.93-5.22); White Blood Count 15.15 K/ul (4.8-10.8)
[2022-09-25 05:38] LABS: Calcium 8.7 mg/dl (8.5-10.1); Creatinine Clr Calc Pharmacy 20.3 ml/min; Est GFR (African American) 26.4 ml/min; Est GFR (Non-African American) 22.8 ml/min; Potassium 4.3 mmol/L (3.5-5.1)
[2022-09-25] MEDS: SODIUM CHLOR 7% 4 ML NEB NEB SCH ×2 (07:09→19:35)
--- NOTE | 2022-09-25 08:42 | Hospitalist Progress Note ---
Date of Service September 25, 2022 Assessment & Plan (1) Consolidation of right lower lobe of lung: Plan: Patient recurs with falls at home and weakness. -recently discharged on 09/20 for RLL pneumonia in setting of COPD. Discharged on Augmentin, azithromycin, steroid taper. There was concern for infection versus possible recurrence of neoplasm as the patient previous had a right lower lobectomy. -Returned 2 days later because of recurrence fever, weakness, and leukocytosis. -Pt was started on cefepime for pseudomonal coverage, cont. -MRSA neg. Bronch as below; cultures pending, gram stain with gram-positive cocci, clinical picture and XR worsening - vancomycin started. -Inhalers changed to nebs -pulm toilet with chest PT, flutter valve, incentive spirometry -Pulm following Consultation of pulmonary medicine: bronchoscopy completed on 09/24 Bronchoscopy impression: 1. Mucous plugging of the trachea extending down into the right mainstem and right lower lobe bronchi. 2. Therapeutic aspiration of secretions with saline lavage.Await microbiologic data. 3. Small abnormal mucosal lesion at about 7:00 above the staple line.Recommend attention at follow-up bronchoscopy once the patient's acute issues have resolved and anticoagulation can be held for 48 hours. (2) Coronary artery disease: Plan: continues on aspirin, carvedilol. lasix 20, hydralazine 50 TID (3) Chronic diastolic heart failure: Plan: controlled with carvedilol and lasix (4) History of pulmonary embolism: Plan: on chronic apixaban therapy -restarted s/p bronch. Adjusted dosing to 2.5mg bid due to age and creatinine. Will likely discharge on this dosing since baseline creatinine elevated secondary to CKD. (5) Paroxysmal atrial fibrillation: Plan: last hospital stay was in sinus rhythm and on rate control of coreg and chronic apixiban (6) CKD (chronic kidney disease), stage III: Plan: stable, on hydralazine for bp control (7) COPD (chronic obstructive pulmonary disease): Plan: -breo ellipta, incruse ellipta, prn albuterol Admission and Anticipated Discharge Date Admission Date: September 22, 2022 Supervising Physician Co-Signing Physician Notes I personally examined the patient and verified all nugent points of history and exam, discussed case, and agree with decision making with Dr Castillo. Feels lousy and still short of breath. Pulmonary input greatly appreciated. Vitals noted, in general she looks very fatigued and mildly dyspneic. HEENT normocephalic atraumatic mucous membranes moist. Lungs show scattered rhonchi throughout bilaterally no wheezes no focal rales no accessory muscle use good effort Pneumonia and mucous plugging precipitating ongoing hypoxic respiratory failure with underlying COPDcontinue cefepime, Vanco added pending sensitivities from bronchoscopy. Increase pulmonary toilet. Continue supportive care. Otherwise as above, DVT proph apixaban Subjective Seen at bedside this morning. Laying comfortably. Does not feel good at all. Very fatigued and coughing up alot of mucus with some sob. Says the flutter valve helps. Denies chest pain, fever, headache, N/V, abd pain. Review of Systems Review of Systems: All systems reviewed & are unremarkable except as noted in HPI & below Physical Exam Physical Exam: Well nourished and normally developed. Vital signs as documented. HEENT: normocephalic atraumatic Neck: without JVD or thyromegaly Lungs: CTAB, no focal loss of breath sounds, audible mucous on cough Cardiac: RRR. No murmurs, rubs or gallops. Abdominal: normal bowel sounds, soft non tender, no masses Extremities: nonedematous, pedal pulses are present Neurologic: AOx3, no focal loss of strength or sensation Skin: warm, dry, no rashes Psych: without concerns for anxiety or depression Results & Data Results & Data ([facility]) Vital Signs (Past 12 Hours) Vital Signs Temp Pulse Pulse Pulse Resp BP BP 09/25/22 08:27 36.9 C 79 19 114/35 L 09/25/22 07:10 72 18 09/25/22 06:18 16 09/25/22 04:00 36.5 C 75 18 106/45 L 09/25/22 00:00 77 09/24/22 23:10 36.9 C 83 17 115/64 09/24/22 21:30 36.9 C 09/24/22 21:29 70 18 Pulse Ox O2 Del Method O2 Flow Rate 09/25/22 08:27 92 Nasal Cannula 3.0 09/25/22 07:10 95 Nasal Cannula 3 09/25/22 06:18 95 Nasal Cannula 3 09/25/22 04:00 96 Nasal Cannula 5 09/25/22 00:00 09/24/22 23:10 93 Nasal Cannula 7 09/24/22 21:30 09/24/22 21:29 91 Nasal Cannula 4 Laboratory Results 09/25/22 09/25/22 Range/Units 04:45 04:45 WBC 15.15 H (4.8-10.8) K/ul RBC 3.01 L (3.93-5.22) M/uL Hgb 8.6 L (12.0-16.0) g/dl Hct 27.3 L (34.1-44.9) % MCV 90.7 (80.0-100.0) fL MCH 28.6 (25.0-34.0) pg MCHC 31.5 L (32.0-36.0) g/dL RDW Std Deviation 47.5 H (36.4-46.3) fL RDW Coeff of Mio 14.3 (11.5-14.5) % Plt Count 225 (130-400) K/uL MPV 9.4 (9.4-12.3) fL Sodium 135 L (136-145) mmol/L Potassium 4.3 (3.5-5.1) mmol/L Chloride 101 (98-107) mmol/L Carbon Dioxide 23 (21-32) mmol/L Anion Gap 11 (3-11) BUN 63 H (6-23) mg/dl Creatinine 1.97 H (0.6-1.2) mg/dl Est Cr Clr Drug Dosing 20.3 ml/min Est GFR ( Amer) 26.4 ml/min Est GFR (Non-Af Amer) 22.8 ml/min BUN/Creatinine Ratio 32.0 H (10-20) Glucose 77 (70-99(Fasting)) mg/dl Calcium 8.7 (8.5-10.1) mg/dl Resident Activity Tracking Resident Involvement: Resident Care Provided Care Provided: Adult Hospital Medicine (1) Coronary artery disease Associated angina: without angina Coronary Disease-Associated Artery/Lesion type: [place] artery [place] vs. transplanted heart: [place] heart Qualified Code(s): I25.10 - Atherosclerotic heart disease of [place] coronary artery without angina pectoris (2) COPD (chronic obstructive pulmonary disease) COPD type: unspecified COPD Qualified Code(s): J44.9 - Chronic obstructive pulmonary disease, unspecified
[2022-09-25] MEDS: FERROUS SULFATE 325 MG TAB PO SCH (09:11)
[2022-09-25] MEDS: hydrALAZINE TAB 50 MG TAB PO SCH ×3 (09:11→21:16)
[2022-09-25] MEDS: CYANOCOBALAMIN (B-12) 500 MCG TABLET PO SCH (09:12)
[2022-09-25] MEDS: carvediloL 25 MG TAB PO SCH ×2 (09:12→21:15)
[2022-09-25] MEDS: allopurinoL 100 MG TAB PO SCH (09:12)
[2022-09-25] MEDS: FUROSEMIDE 20 MG TAB PO SCH (09:12)
[2022-09-25] MEDS: guaiFENesin 600 MG TABCR PO SCH ×2 (09:12→21:15)
[2022-09-25] MEDS: ASPIRIN 81 MG ECTAB PO SCH (09:12)
[2022-09-25] MEDS: FLUTICASONE/VILANTEROL 100/25MCG 14 PUFFS/INHALER INH SCH (09:13)
[2022-09-25] MEDS: UMECLIDINIUM BROMIDE 62.5MCG/BLISTER 7 PUFFS/INHALER INH SCH (09:18)
[2022-09-25] MEDS: APIXABAN 2.5 MG TAB PO SCH ×2 (10:04→21:16)
--- NOTE | 2022-09-25 11:03 | Pulmonology Progress Note ---
Date of Service September 25, 2022 Assessment & Plan (1) RLL pneumonia: Aspiration pneumonia type: due to gastric secretions Pneumonia type: aspiration pneumonia Qualified Code(s): J69.0 - Pneumonitis due to inhalation of food and vomit (2) Abnormal CT scan of lung: (3) COPD (chronic obstructive pulmonary disease): COPD type: unspecified COPD Qualified Code(s): J44.9 - Chronic obstructive pulmonary disease, unspecified Plan Impression: 82-year-old female with history of squamous cell carcinoma presenting now with what appears to be recurrent or persistent pneumonia. She is been treated with several courses of antibiotics but these have not been ultimately successful in improving her symptoms. She underwent bronchoscopy with therapeutic aspirations of secretions 09/24/2022. She is more short of breath today. Recommendations: 1. Mucous plugging: Status post bronchoscopy. She continues to have an ineffectual cough. Repeat chest x-ray this morning 2. Continue aggressive pulmonary toilet post procedure with flutter valve hypertonic saline and inhaled bronchodilators. Transition bronchodilators to nebulized formulations to see if this improves delivery. We will add a trial of nebulized Mucomyst to see if this offers her a clinical benefit as well as vest therapy. 3. Agree with antibiotics for now. Day #3 cefepime. Cultures pending, gram stain with gram-positive cocci. We will add vancomycin pending speciation and sensitivity 5. The patient did have a mucosal abnormality on bronchoscopy which was not biopsied or brush due to bleeding encountered. Repeat bronchoscopy is warranted in the next 2 to 4 weeks to evaluate this area once anticoagulation can be withheld. The above recommendations and plan were discussed with the patient. Admission and Anticipated Discharge Date Admission Date: September 22, 2022 Subjective Patient status post bronchoscopy with aspiration of secretions in the lower lobe yesterday. She reports that she feels worse this morning. She is having increasing shortness of breath. She continues to cough but is not able to expectorate phlegm. She has a flutter valve but this has not been particularly helpful. She denies fevers or chills. No chest pain or palpitations. No significant lower extremity edema. No nausea or vomiting. Review of Systems Review of Systems: All systems reviewed & are unremarkable except as noted in Subjective Physical Exam Constitutional: WD/WN, vitals as above ENMT: Mallampati Class: I Neck: trachea midline, no thyromegaly Respiratory: + labored breathing, + cough and + tachypneic; no respiratory distress Auscultation: + rhonchi; no wheezes Cardiovascular: RRR, no murmur, no edema Gastrointestinal (Abdomen): normal bowel sounds, soft, nontender, no hepatosplenomegaly Musculoskeletal: Extremities: extremities normal to inspection Skin: no rashes, warm and dry Lymphatic: no cervical lymphadenopathy Results & Data Results & Data ([facility]) Vital Signs (Past 12 Hours) Vital Signs Temp Pulse Pulse Pulse Resp BP BP 09/25/22 08:00 09/25/22 08:00 71 09/25/22 08:27 36.9 C 79 19 114/35 L 09/25/22 07:10 72 18 09/25/22 06:18 16 09/25/22 04:00 36.5 C 75 18 106/45 L 09/25/22 00:00 77 09/24/22 23:10 36.9 C 83 17 115/64 Pulse Ox Pulse Ox O2 Del Method O2 Del Method O2 Flow Rate O2 Flow Rate 09/25/22 08:00 94 Oxymask 4 09/25/22 08:00 09/25/22 08:27 92 Nasal Cannula 3.0 09/25/22 07:10 95 Nasal Cannula 3 09/25/22 06:18 95 Nasal Cannula 3 09/25/22 04:00 96 Nasal Cannula 5 09/25/22 00:00 09/24/22 23:10 93 Nasal Cannula 7 Critical Care Results & Data Vital Signs (Past 12 Hours) Vital Signs Temp Pulse Pulse Pulse Resp BP BP 09/25/22 08:00 09/25/22 08:00 71 09/25/22 08:27 36.9 C 79 19 114/35 L 09/25/22 07:10 72 18 09/25/22 06:18 16 09/25/22 04:00 36.5 C 75 18 106/45 L 09/25/22 00:00 77 09/24/22 23:10 36.9 C 83 17 115/64 Pulse Ox Pulse Ox O2 Del Method O2 Del Method O2 Flow Rate O2 Flow Rate 09/25/22 08:00 94 Oxymask 4 09/25/22 08:00 09/25/22 08:27 92 Nasal Cannula 3.0 09/25/22 07:10 95 Nasal Cannula 3 09/25/22 06:18 95 Nasal Cannula 3 09/25/22 04:00 96 Nasal Cannula 5 09/25/22 00:00 09/24/22 23:10 93 Nasal Cannula 7 Lab & Micro Results (Past 24 Hours) RBC 3.01 M/uL (3.93-5.22) L 09/25/22 WBC 15.15 K/ul (4.8-10.8) H 09/25/22 Hgb 8.6 g/dl (12.0-16.0) L 09/25/22 Hct 27.3 % (34.1-44.9) L 09/25/22 MCV 90.7 fL (80.0-100.0) 09/25/22 MCH 28.6 pg (25.0-34.0) 09/25/22 MCHC 31.5 g/dL (32.0-36.0) L 09/25/22 RDW Standard Deviation 47.5 fL (36.4-46.3) H 09/25/22 RDW Coefficient of Variation 14.3 % (11.5-14.5) 09/25/22 Plt Count 225 K/uL (130-400) 09/25/22 MPV 9.4 fL (9.4-12.3) 09/25/22 Na 135 mmol/L (136-145) L 09/25/22 K 4.3 mmol/L (3.5-5.1) 09/25/22 Cl 101 mmol/L (98-107) 09/25/22 CO2 23 mmol/L (21-32) 09/25/22 Anion Gap 11 (3-11) 09/25/22 BUN 63 mg/dl (6-23) H 09/25/22 Creatinine 1.97 mg/dl (0.6-1.2) H 09/25/22 Estimated GFR ( Amer) 26.4 ml/min 09/25/22 Estimated GFR (Non-Af Amer) 22.8 ml/min 09/25/22 BUN/Creatinine Ratio 32.0 (10-20) H 09/25/22 Glu 77 mg/dl (70-99(Fasting)) 09/25/22 Ca 8.7 mg/dl (8.5-10.1) 09/25/22 Calcium Level 8.7 mg/dl (8.5-10.1) 09/25/22 04:45 Microbiology 09/24/22 Unknown Acid Fast Bacilli Smear - Final Bronch Wash, Right Main Stem 09/22/22 12:29 Aerobic Blood Culture - Preliminary Blood No growth in Aerobic bottle after 48 hours. Anaerobic Blood Culture - Preliminary No growth in Anaerobic bottle after 48 hours. 09/22/22 12:14 Aerobic Blood Culture - Preliminary Blood No growth in Aerobic bottle after 48 hours. Anaerobic Blood Culture - Preliminary No growth in Anaerobic bottle after 48 hours. 09/24/22 Unknown Fungal Smear - Final Bronch Wash, Right Main Stem 09/24/22 Unknown Gram Stain - Final Bronch Wash, Right Main Stem I & O Totals 24 Hours 09/24/22 09/25/22 09/26/22 06:59 06:59 06:59 Intake Total 680 / 680 440 / 440 Output Total Balance 679 / 679 439 / 439 Cumulative 09/22/22 11:04 thru 09/25/22 06:00 Intake Total 1920 Output Total 3 Balance 1917 RT Ventilator Mngmt (Last Documented) Ventilator Ordered Settings Respiratory Rate 19 09/25/22 08:27 Ventilator - PT Measurements Respiratory Rate 19 PG Care Time/CCT Total # of Minutes Spent Total Time Spent with Patient: Total time spent is greater than 50% in coordination of care (as documented) at patient's floor/unit and/or counseling patient: Coding Level of Care Code 12071 Subseq Hosp Care Lvl 3 Diagnoses RLL pneumonia J69.0 Aspiration pneumonia type: due to gastric secretions Pneumonia type: aspiration pneumonia Abnormal CT scan of lung R91.8 COPD (chronic obstructive pulmonary disease) J44.9 COPD type: unspecified COPD
[2022-09-25] MEDS ORDERED: VANCOMYCIN HCL 1,250 MG in SODIUM CHLORIDE 0.9% 500 ML IV ONE (11:05)
[2022-09-25] MEDS ORDERED: VANCOMYCIN CONSULT ACTIVE PRN (11:05)
[2022-09-25] MEDS ORDERED: VANCOMYCIN HCL 1,250 MG in SODIUM CHLORIDE 0.9% 250 ML IV ONE (11:30)
--- NOTE | 2022-09-25 11:38 | XRay Report ---
XR chest 1V portable HISTORY: 82 years-old Female dyspnea acute shortness of breath COMPARISON: Chest radiograph 09/22/2022, chest CT 09/17/2022 TECHNIQUE: AP view of the chest FINDINGS: Emphysema with chronic interstitial coarsening. Unchanged mild bilateral hilar prominence. Prior righ t lower lobectomy. Progressively worsened right lung consolidation with right greater than left nodul ar airspace densities. No pneumothorax or overt pulmonary edema. Small right pleural effusion. Degene rative changes of the shoulders and spine. Sigmoidal thoracolumbar scoliosis with surgical clips of t he upper abdomen. IMPRESSION: 1. Progressively worsened right lung consolidation with bilateral nodular airspace opacities redemons trated. Findings are again suggestive of an infectious etiology, however follow-up is needed after tr eatment course to document resolution. 2. Prior right lower lobectomy. 3. Emphysema with chronic interstitial coarsening. ACT 112: Negative or not required by law. The above report was generated using voice recognition software. It may contain grammatical, syntax o r spelling errors. Electronically signed by: Danilo Huerta M.D. 09/25/2022 11:36 AM
[2022-09-25] MEDS: FORMOTEROL 20 MCG/2 ML VIAL NEB SCH ×2 (11:39→19:35)
[2022-09-25] MEDS: ACETYLCYSTEINE 10% INHAL SOLN 4 ML **DISPENSED BY RESP. INH SCH ×2 (11:43→19:35)
--- NOTE | 2022-09-25 12:03 | Pharmacy Report ---
Pharmacy PK ABX Note - Date of Service September 25, 2022 - Assessment and Plan Assessment * 82 year old F receiving cefepime since 09/22 PM for PNA, now adding vancomycin for treatment of [place]. * Pertinent microbiologic data includes: Negative MRSA Nasal Swab * Although negative, hx SCC increases risk of false negative swab and patient has also failed several courses of antibiotics recently per pulm note * SCr elevated from baseline and rising. Will dose vancomycin via level. Plan Vancomycin * Loading dose: 1250 mg IV x 1 * Maintenance dose: none for now * Random level ordered for: tomorrow AM Pharmacy will continue to follow and will adjust dose/frequency as necessary. Thank you. Pharmacy has transitioned to AUC monitoring for vancomycin. AUC/GAGANDEEP is the preferred PK/PD target and is associated with decreased risk of nephrotoxicity compared to traditional trough targets.
[2022-09-25] MEDS: LACTATED RINGER'S 1,000 ML IV SCH (16:10)
--- NOTE | 2022-09-25 18:46 | Billing Data ---
Date of Service September 25, 2022 Coding Level of Care Code 23632 Subseq Hosp Care Lvl 3
[2022-09-25] MEDS: BUDESONIDE 0.5 MG/2 ML VIAL (PULMICORT) NEB SCH (19:35)
[2022-09-25] MEDS: ALBUT/IPRATROP 3MG/0.5MG NEB 3 ML VIAL NEB SCH (19:36)
[2022-09-25] MEDS: SIMVASTATIN 40 MG TAB PO SCH (21:15)
[2022-09-26] MEDS: LACTATED RINGER'S 1,000 ML IV SCH ×2 (05:25→18:37)
[2022-09-26] MEDS: SODIUM CHLOR 7% 4 ML NEB NEB SCH ×2 (07:10→20:25)
[2022-09-26 07:12] LABS: Hematocrit (blood only) 26.3 % (34.1-44.9); Hemoglobin 8.7 g/dl (12.0-16.0); Mean Corpuscular Hemoglobin 29.1 pg (25.0-34.0); Mean Corpuscular Hgb Conc 33.1 g/dL (32.0-36.0); Mean Platelet Volume 9.6 fL (9.4-12.3); Platelet Count 259 K/uL (130-400); RDW Coefficient of Variation 14.5 % (11.5-14.5); RDW Standard Deviation 46.5 fL (36.4-46.3); Red Blood Count 2.99 M/uL (3.93-5.22); White Blood Count 16.93 K/ul (4.8-10.8)
[2022-09-26] MEDS: ACETYLCYSTEINE 10% INHAL SOLN 4 ML **DISPENSED BY RESP. INH SCH ×2 (07:17→20:24)
[2022-09-26] MEDS: ALBUT/IPRATROP 3MG/0.5MG NEB 3 ML VIAL NEB SCH ×4 (07:17→20:25)
--- NOTE | 2022-09-26 07:27 | Hospitalist Progress Note ---
Date of Service September 26, 2022 Assessment & Plan (1) Consolidation of right lower lobe of lung: Plan: -recently discharged on 09/20 for RLL pneumonia in setting of COPD. Discharged on Augmentin, azithromycin, steroid taper. Returned 2 days later because of recurrence fever, weakness, and leukocytosis. -Pt was started on cefepime for pseudomonal coverage, cont. -Vancomycin x1 (09/26). -MRSA neg. Blood cx neg. Bronch as below; gram stain with rare gram-positive cocci, culture and acid fast no growth thus far. Fungal culture grew some yeast. Clinical picture and XR worsening. -Cont. nebulizers, supplemental O2, Mucomyst. -aggressive pulmonary toilet with chest PT, flutter valve, incentive spirometry -Pulmonology following, offered repeat bronchoscopy but patient/family decline at this time since last bronchoscopy caused distress without much benefit. Added cough assist. -Code status changed to DNI/DNR. Going forward will have hospice and comfort measure discussion as prognosis is poor. Consultation of pulmonary medicine: bronchoscopy completed on 09/24 Bronchoscopy impression: 1. Mucous plugging of the trachea extending down into the right mainstem and right lower lobe bronchi. 2. Therapeutic aspiration of secretions with saline lavage.Await microbiologic data. 3. Small abnormal mucosal lesion at about 7:00 above the staple line.Recommend attention at follow-up bronchoscopy once the patient's acute issues have resolved and anticoagulation can be held for 48 hours. (2) Coronary artery disease: Plan: continues on aspirin, carvedilol. lasix 20, hydralazine 50 TID (3) Chronic diastolic heart failure: Plan: controlled with carvedilol and lasix (4) History of pulmonary embolism: Plan: on chronic apixaban therapy -restarted s/p bronch. Adjusted dosing to 2.5mg bid due to age and creatinine. (5) Paroxysmal atrial fibrillation: Plan: last hospital stay was in sinus rhythm and on rate control of coreg and chronic apixiban (6) CKD (chronic kidney disease), stage III: Plan: stable, on hydralazine for bp control (7) COPD (chronic obstructive pulmonary disease): Plan: -breo ellipta, incruse ellipta, prn albuterol Admission and Anticipated Discharge Date Admission Date: September 22, 2022 Supervising Physician Co-Signing Physician Notes Attending attestation Pt seen and examined in concert with Dr. Castillo. In agreement with the documented findings as noted in the resident documentation with any exceptions or additions as noted here. Worsening shortness of breath and fatigue, family at bedside with concerns for ongoing care and utility/tolerance of further invasive treatment. VS, nursing notes reviewed. On examination, S1/S2 nl RRR no MCG. decreased breath sounds throughout. Abd NT/ND BS+ve Acute hypoxic respiratory failure due to PNA, likely multifactorial, possibly aspiration,w/ mucous plugging in the setting of COPD - pulm consult - continue abx therapy. Basic review of potential interventions and course reviewed including bronchoscopy as well as transition to palliative/hospice care. Else see resident documentation as noted. Subjective Seen at bedside this morning. Appears in acute distress with audible mucous plugging. On supplemental O2. Does not feel good at all. Very fatigued and coughing up alot of mucus with some sob. Her main complaint is difficulty breathing. Denies chest pain, fever, headache, N/V, abd pain. Review of Systems Review of Systems: All systems reviewed & are unremarkable except as noted in HPI & below Physical Exam Physical Exam: Frail. in acute distress. Vital signs as documented. HEENT: normocephalic atraumatic Neck: without JVD or thyromegaly Lungs: decreased air entry diffusely, no wheeze, +rhonchi, +crackles prominently in bibasilar lungs, audible mucous on cough Cardiac: RRR. No murmurs, rubs or gallops. Abdominal: normal bowel sounds, soft, non tender, no masses Extremities: nonedematous, pedal pulses are present Neurologic: no focal deficits Skin: warm, dry, no rashes Psych: alert, unable to assess orientation Results & Data Results & Data ([facility]) Vital Signs (Past 12 Hours) Vital Signs Temp Pulse Pulse Resp BP BP Pulse Ox 09/26/22 07:14 65 20 92 09/26/22 03:08 36.5 C 79 18 137/57 L 93 09/26/22 00:00 09/25/22 23:00 83 09/25/22 23:02 36.3 C L 79 18 118/55 L 95 09/25/22 20:00 36.7 C 84 20 108/66 94 09/25/22 20:00 09/25/22 19:36 86 20 93 Pulse Ox O2 Del Method O2 Del Method O2 Flow Rate O2 Flow Rate 09/26/22 07:14 Nasal Cannula 3 09/26/22 03:08 Nasal Cannula 3 09/26/22 00:00 95 Nasal Cannula 3 09/25/22 23:00 09/25/22 23:02 Nasal Cannula 3 09/25/22 20:00 Nasal Cannula 3 09/25/22 20:00 Nasal Cannula 3 09/25/22 19:36 Nasal Cannula 3 Laboratory Results 09/26/22 09/26/22 09/26/22 Range/Units 06:50 06:50 06:50 WBC (4.8-10.8) K/ul RBC (3.93-5.22) M/uL Hgb (12.0-16.0) g/dl Hct (34.1-44.9) % MCV (80.0-100.0) fL MCH (25.0-34.0) pg MCHC (32.0-36.0) g/dL RDW Std Deviation (36.4-46.3) fL RDW Coeff of Mio (11.5-14.5) % Plt Count (130-400) K/uL MPV (9.4-12.3) fL Sodium 136 (136-145) mmol/L Potassium 3.9 (3.5-5.1) mmol/L Chloride 102 (98-107) mmol/L Carbon Dioxide 24 (21-32) mmol/L Anion Gap 10 (3-11) BUN 77 H (6-23) mg/dl Creatinine 2.01 H (0.6-1.2) mg/dl Est Cr Clr Drug Dosing 20.0 ml/min Est GFR ( Amer) 25.8 ml/min Est GFR (Non-Af Amer) 22.2 ml/min BUN/Creatinine Ratio 38.3 H (10-20) Glucose 114 H (70-99(Fasting)) mg/dl Calcium 8.8 (8.5-10.1) mg/dl Procalcitonin 13.43 H (0-0.5) ng/ml Random Vancomycin 11.9 (10-20) mcg/ml 09/26/22 Range/Units 06:50 WBC 16.93 H (4.8-10.8) K/ul RBC 2.99 L (3.93-5.22) M/uL Hgb 8.7 L (12.0-16.0) g/dl Hct 26.3 L (34.1-44.9) % MCV 88.0 (80.0-100.0) fL MCH 29.1 (25.0-34.0) pg MCHC 33.1 (32.0-36.0) g/dL RDW Std Deviation 46.5 H (36.4-46.3) fL RDW Coeff of Mio 14.5 (11.5-14.5) % Plt Count 259 (130-400) K/uL MPV 9.6 (9.4-12.3) fL Sodium (136-145) mmol/L Potassium (3.5-5.1) mmol/L Chloride (98-107) mmol/L Carbon Dioxide (21-32) mmol/L Anion Gap (3-11) BUN (6-23) mg/dl Creatinine (0.6-1.2) mg/dl Est Cr Clr Drug Dosing ml/min Est GFR ( Amer) ml/min Est GFR (Non-Af Amer) ml/min BUN/Creatinine Ratio (10-20) Glucose (70-99(Fasting)) mg/dl Calcium (8.5-10.1) mg/dl Procalcitonin (0-0.5) ng/ml Random Vancomycin (10-20) mcg/ml Resident Activity Tracking Resident Involvement: Resident Care Provided Care Provided: Adult Hospital Medicine (1) Coronary artery disease Associated angina: without angina Coronary Disease-Associated Artery/Lesion type: [place] artery [place] vs. transplanted heart: [place] heart Qualified Code(s): I25.10 - Atherosclerotic heart disease of [place] coronary artery without angina pectoris (2) COPD (chronic obstructive pulmonary disease) COPD type: unspecified COPD Qualified Code(s): J44.9 - Chronic obstructive pulmonary disease, unspecified
[2022-09-26 07:30] LABS: BUN Creatinine Ratio 38.3 (10-20); Calcium 8.8 mg/dl (8.5-10.1); Est GFR (African American) 25.8 ml/min; Est GFR (Non-African American) 22.2 ml/min; Potassium 3.9 mmol/L (3.5-5.1)
[2022-09-26] MEDS: BUDESONIDE 0.5 MG/2 ML VIAL (PULMICORT) NEB SCH ×2 (07:35→20:25)
[2022-09-26] MEDS: FORMOTEROL 20 MCG/2 ML VIAL NEB SCH ×2 (07:35→20:25)
--- NOTE | 2022-09-26 08:37 | Pulmonology Progress Note ---
Date of Service September 26, 2022 Assessment & Plan (1) RLL pneumonia: Aspiration pneumonia type: due to gastric secretions Pneumonia type: aspiration pneumonia Qualified Code(s): J69.0 - Pneumonitis due to inhalation of food and vomit (2) Abnormal CT scan of lung: (3) COPD (chronic obstructive pulmonary disease): COPD type: unspecified COPD Qualified Code(s): J44.9 - Chronic obstructive pulmonary disease, unspecified Plan Impression: 82-year-old female with history of squamous cell carcinoma presenting now with what appears to be recurrent or persistent pneumonia. She i s been treated with several courses of antibiotics but these have not been ultimately successful in improving her symptoms. She underwent bronchoscopy with therapeutic aspirations of secretions 09/24/2022. -- Right lower lobe pneumonia with mucous plugging S/p bronchoscopy 09/24/[address] Kingsley There was no improvement in the chest x-ray postprocedure. Patient still seems to be very rhonchorous and unable to bring up the phlegm. Continue with antibiotics Patient is not willing to have any further bronchoscopies done. --Acute hypoxic respiratory failure Continue with O2 supplementation to keep oxygen saturation between 90-92% -- History of COPD --History of squamous cell lung cancer S/p resection 2018 -- Paroxysmal A. fib On apixaban Plan: Chest x-ray still shows persistent right lower lobe infiltrate with possible mucous plugging I will add cough assist on top of the nebulized hypertonic saline and Mucomyst Would recommend a swallow eval for the patient I did discuss the current condition and prognosis of the patient to the family. They understand All question inquiries of the patient as well as patient's daughter were answered in depth. Case was discussed with Dr. Castillo Please note the above document was generated using voice recognition software. It may contain grammatical, syntax or spelling errors.Any formal questions or concerns about the content, text or information contained within the body of this dictation should be directly addressed to the provider for clarification. Admission and Anticipated Discharge Date Admission Date: September 22, 2022 Subjective Patient seen and examined at bedside. Patient was in mild respiratory distress She was saturating 92% on 3 L nasal cannula at time of examination She was complaining of nausea. Poor appetite Says that her breathing has not improved. Denies any headache or blurry vision. No abdominal pain Has been coughing but not bringing up any phlegm Review of Systems Review of Systems: All systems reviewed & are unremarkable except as noted in Subjective Physical Exam Physical Exam: Constitutional: No acute distress HEENT: EOMI, PERRLA Respiratory system: Decreased air entry bilaterally, more decreased on the right side, no wheeze, positive rhonchi, positive crackles bilateral lower lobes more on the right side CVS: S1-S2 positive, no murmurs or gallops Abdomen: Soft, nontender, nondistended, positive bowel sounds x4 Extremities: +2 pulses bilaterally radialis/ dorsalis pedis, no cyanosis, no edema Neuro: Awake alert oriented to self Psych: Restless G/U: No [place] Skin: no rashes, warm and dry Lymphatic: no cervical or axillary lymphadenopathy Results & Data Results & Data ([facility]) Vital Signs (Past 12 Hours) Vital Signs Temp Pulse Pulse Pulse Resp BP BP 09/26/22 08:02 36.8 C 85 20 154/71 H 09/26/22 07:14 65 20 09/26/22 03:08 36.5 C 79 18 137/57 L 09/26/22 00:00 09/25/22 23:00 83 09/25/22 23:02 36.3 C L 79 18 118/55 L Pulse Ox Pulse Ox O2 Del Method O2 Del Method O2 Flow Rate O2 Flow Rate 09/26/22 08:02 94 Nasal Cannula 3 09/26/22 07:14 92 Nasal Cannula 3 09/26/22 03:08 93 Nasal Cannula 3 09/26/22 00:00 95 Nasal Cannula 3 09/25/22 23:00 09/25/22 23:02 95 Nasal Cannula 3 Laboratory Results 09/26/22 06:50 09/26/22 06:50 PG Care Time/CCT Total # of Minutes Spent Total Time Spent with Patient: Total time spent is greater than 50% in coordination of care (as documented) at patient's floor/unit and/or counseling patient: Coding Level of Care Code 30029 Subseq Hosp Care Lvl 3 Diagnoses RLL pneumonia J69.0 Aspiration pneumonia type: due to gastric secretions Pneumonia type: aspiration pneumonia Abnormal CT scan of lung R91.8 COPD (chronic obstructive pulmonary disease) J44.9 COPD type: unspecified COPD
--- NOTE | 2022-09-26 08:54 | Pharmacy Report ---
Pharmacy [facility] Short Note - Date of Service September 26, 2022 - Assessment & Plan Assessment * 82 year old F receiving cefepime since 09/22 PM for PNA, vancomycin added yesterday for treatment of pneumonia. * Pertinent microbiologic data includes: Negative MRSA Nasal Swab * Although negative, hx SCC increases risk of false negative swab and patient has also failed several courses of antibiotics recently per pulm note Plan Vancomycin * Random vancomycin level this AM was ~11.9 mcg/ml - Scr remains elevated, estimated t1/2 >24 hours therefore will continue to dose by levels for now * Plan to give vancomycin 1000 mg x 1 now (~15 mg/kg/dose) to maintain estimated peak of ~30 mcg/ml * Estimated level tomorrow still > 15 mcg/ml. Will order another random tomorrow AM to assist with further dosing. (ke~0.02 hr-1, t1/2~33 hrs) Pharmacy will continue to follow and will adjust dose/frequency as necessary. Thank you.
[2022-09-26] MEDS: guaiFENesin 600 MG TABCR PO SCH (09:34)
[2022-09-26] MEDS: APIXABAN 2.5 MG TAB PO SCH (09:34)
[2022-09-26] MEDS: hydrALAZINE TAB 50 MG TAB PO SCH ×2 (09:34→15:53)
[2022-09-26] MEDS: ASPIRIN 81 MG ECTAB PO SCH (09:35)
[2022-09-26] MEDS: FUROSEMIDE 20 MG TAB PO SCH (09:35)
[2022-09-26] MEDS: allopurinoL 100 MG TAB PO SCH (09:35)
[2022-09-26] MEDS: carvediloL 25 MG TAB PO SCH (09:35)
[2022-09-26] MEDS: FERROUS SULFATE 325 MG TAB PO SCH (09:35)
[2022-09-26] MEDS: UMECLIDINIUM BROMIDE 62.5MCG/BLISTER 7 PUFFS/INHALER INH SCH (09:35)
[2022-09-26] MEDS: CYANOCOBALAMIN (B-12) 500 MCG TABLET PO SCH (09:35)
[2022-09-26] MEDS ORDERED: VANCOMYCIN HCL 1,000 MG in SODIUM CHLORIDE 0.9% 250 ML IV ONE (10:00)
--- NOTE | 2022-09-26 13:32 | XRay Report ---
XR chest 1V portable CLINICAL HISTORY: f/u COMPARISON STUDY: Chest CT September 17, 2022. Chest radiograph September 25, 2022. FINDINGS: There is no pneumothorax. A small right pleural effusion is similar to prior exam. Postoper ative findings within the right hemithorax with volume loss are noted. There is elevation the right h emidiaphragm. Cardiomediastinal silhouette is stable. Extensive right mid and lower lung airspace opa city is similar to prior exam. Left basilar nodular opacities persist. IMPRESSION: 1. No significant change in bilateral airspace opacities, greater within the right lung. The findings favor multifocal pneumonia. Radiographic follow-up to ensure resolution is recommended. 2. Small right pleural effusion, similar to prior exam. ACT 112: Negative or not required by law. Electronically signed by: Gerardo Pires M.D. 09/26/2022 1:31 PM
[2022-09-26] MEDS: CEFEPIME 1,000 MG in SYRINGE 0 ML IV SCH (15:40)
[2022-09-26] MEDS ORDERED: chlorproMAZINE HCL 25 MG TAB PO PRN (18:00)
[2022-09-26] MEDS ORDERED: HYDROmorphone INJ 0.5 MG/0.5 ML SYR IV PRN ×2 (18:00→19:46)
[2022-09-26] MEDS ORDERED: ONDANSETRON INJ 2 MG/ML 2 ML VIAL IV PRN (18:00)
[2022-09-26] MEDS ORDERED: LORazepam 0.5 MG in SYRINGE 0 ML IV PRN (18:00)
[2022-09-26] MEDS ORDERED: LORazepam 0.5 MG TAB PO PRN (18:00)
[2022-09-26] MEDS ORDERED: ONDANSETRON 4 MG OD TAB SL PRN (18:00)
[2022-09-26] MEDS ORDERED: GLYCOPYRROLATE 0.2 MG/ML VIAL IV PRN (18:00)
--- NOTE | 2022-09-26 18:12 | Communication Note ---
Date of Service: September 26, 2022 Discussion had with patient and family at bedside. Decided on comfort measures only at this point. Will speak with CM tomorrow with possible discharge to home, however, it does not seem like family is interested in that option at this time. Will reevaluate in am. Resident Activity Tracking Resident Involvement: Resident Care Provided Care Provided: Adult Hospital Medicine
[2022-09-26] MEDS ORDERED: ACETAMINOPHEN 1,000 MG/100 ML VIAL IV SCH (20:00)
--- NOTE | 2022-09-26 21:57 | Communication Note ---
Date of Service: September 26, 2022 Patient's chart reviewed and noted that she has transitioned to [employer]ST[employer]. Patient had declined respiratory treatments (vest, cough assist, mucomyst, hypertonic, as well as inhalers) to RT earlier this evening and had asked they be discontinued to align with her goals of seeking comfort and eventually passing away. Morphine and Rubinul on-file PRN - she only wants these at present. As requested by patient, can hold the aforementioned respiratory therapies for now. Plan discussed with RT and transmitted to RN. Continue to monitor respiratory status to ensure goals are met. Resident Activity Tracking Resident Involvement: Resident Care Provided Care Provided: Adult [facility] Medicine
--- NOTE | 2022-09-27 02:36 | Death Pronouncement Note ---
Date of Service September 27, 2022 Pronouncement Note Admission Date September 22, 2022 Summary I was called to pronounce the of Amanda Link ( 1940) by her nurse, Sera, on 09/27/22 Upon entering the room, patient was found to be in a terminal state. They were unresponsive to, and did not withdrawal from, verbal or tactile stimuli. They were unresponsive to corneal, pupillary, and oculocephalic reflexes. On cardiopulmonary exam, they were found to be without detectable carotid pulses, and without spontaneous heart tones or respirations. Time of was pronounced by me on 09/27/22 at 0217am. Attending physician was notified was notified. Next of kin, patient's daughter, was contacted via phone by myself. Signed: Huey Pringle MD Additional Data Confirmation of : no pulse, no respirations, no heart sounds and pupils fixed and dilated Pronouncement Performed By: Resident Physician Family: contacted Attending/PCP notified?: Yes Attending physician: Swathi Pierson, DO Was code activated?: No Resident Activity Tracking Resident Involvement: Resident Care Provided Care Provided: Adult Hospital Medicine
--- NOTE | 2022-09-27 04:05 | Discharge Summary ---
Date of Service September 27, 2022 Admission HPI Per Admitting Provider 82-year-old female recently admitted and discharged from our facility discharged September 20 where she was here for acute epoxy respiratory failure secondary to her right lower lobe pneumonia. She was discharged on Augmentin after being started on Unasyn. Continued on azithromycin and on prednisone tapering dosing. He is having increasing falls at home she still continues to be febrile in the emergency department has a white count of 20,000 which may be influenced by her prednisone tapering dose and has a troponin of 24 CT scan of her chest on September 17 shows a status post right lower lobectomy with interval development of extensive right lower lobe lung consolidation and ill-defined nodules throughout the lungs new since May 16, 2022 Admission Exam Per Admitting Provider The patient appeared well nourished and normally developed. Vital signs as documented. Head exam is normocephalic atraumatic Neck is without JVD, thyromegaly, or carotid bruits. Lungs are clear to auscultation, no focal loss of breath sounds Cardiac exam, Rhythm is regular.. No murmurs, rubs or gallops. Abdominal exam reveals normal bowel sounds, soft non tender, no masses Extremities are nonedematous and both pedal pulses are present Neurologic exam is alert and oriented, no focal loss of strength or sensation Skin is without bruises or rashes Psychologically is without concerns for anxiety or depression.. Principal Diagnosis RLL Pneumonia Acute Hypoxic Respiratory Failure Discharge Exam Upon entering the room, patient was found to be in a terminal state. They were unresponsive to, and did not withdrawal from, verbal or tactile stimuli. They were unresponsive to corneal, pupillary, and oculocephalic reflexes. On cardiopulmonary exam, they were found to be without detectable carotid pulses, and without spontaneous heart tones or respirations. Discharge Data Allergies Allergy/AdvReac Type Severity Reaction Status Date / Time chlorhexidine Allergy Mild HIVES,RED Verified 09/17/22 12:28 RASH Consultations 09/22/22 13:01 ED Decision to Admit Stat 09/22/22 14:25 Consult Pulmonology Routine Hospital Course (1) Acute respiratory failure with hypoxia: AHRF, PNA -recently discharged on 09/20 for RLL pneumonia in setting of COPD. Discharged on Augmentin, azithromycin, steroid taper. Returned 2 days later because of recurrence fever, weakness, and leukocytosis. -Workup revealed sputum stain of rare GPCs, yeast; bronchoscopy on 09/24 revealed extensive mucus plugging and a small mucosal lesion -Treated with aggressive pulmonary toilet while here -Pt was placed on cefepime and given a single dose of vancomycin -Prior to passing, primary team underwent extensive discussion re: prognosis and patient was transitioned to DNR/DNI status and subsequently [employer] in line with patient/family goals - she passed shortly thereafter CAD, HFpEF, Pulmonary Embolism, PAF, CKD, COPD: Continued home medications and inhalers while here Total Time Total Time Spent Total Time Spent (In Minutes): 30 Discharge Plan Discharge Items Patient Disposition: Addtl Attending Provider Instructions: I was called to pronounce the of Amanda Link ( 1940) by her nurse, Sera, on 09/27/22 Upon entering the room, patient was found to be in a terminal state. They were unresponsive to, and did not withdrawal from, verbal or tactile stimuli. They were unresponsive to corneal, pupillary, and oculocephalic reflexes. On cardiopulmonary exam, they were found to be without detectable carotid pulses, and without spontaneous heart tones or respirations. Time of was pronounced by me on 09/27/22 at 0217am. Attending physician was notified was notified. Next of kin, patient's daughter, was contacted via phone by myself. Signed: Huey Pringle MD Other Date/Time: 09/27/22 02:17 Resident Activity Tracking Resident Involvement: Resident Care Provided Care Provided: Adult Hospital Medicine
[2022-10-06 15:12] LABS: Legionella Culture Source BW RIGHT MAIN STEM; Source LUNG BIOPSY
== END 2022-09-27 04:12 | disposition expired | DRG 177 ==
LOC: ED 11:11 → SUATTDRO 13:23 → 4W 13:23